=== PATIENT | female | born 1945 | race Caucasian/White ===

== ENCOUNTER 2019-12-28 11:00 | Inpatient (IN) | payer MEDICARE, SELFPAY ==
[2019-12-28] VITALS (18 sets, daily range): BP systolic 113–154; BP diastolic 65–111; PULSE 80–141; RESP 16–32; TEMP 36.1–36.7; O2SAT 88–100; BMI 27.9
--- NOTE | ~2019-12-28 | XR_ITS ---
EXAMINATION: XR chest 2V DATE: 12/28/2019 12:43 INDICATION: Shortness of breath. Cough. TECHNIQUE: Frontal and lateral views of the chest were obtained. COMPARISON: Chest 2 views 01/29/2019, chest CT 01/29/2019 FINDINGS: There is mild scarring at right lung apex. No pleural effusion or pneumothorax. Cardiomegal y is noted. There are changes of mitral valve replacement. There is a moderate-sized hiatal hernia. S urgical clips overlie right shoulder. IMPRESSION: 1. Cardiomegaly. 2. Moderate-sized hiatal hernia. Reviewed, dictated and finalized at location A.
--- NOTE | 2019-12-28 11:11 | ECG_ITS ---
Measurements Intervals [place] Rate: 134 P: KS: 0 QRS: -15 QRSD: 120 T: 100 QT: 286 QTc: 427 Interpretive Statements ATRIAL FIBRILLATION WITH RAPID VENTRICULAR RESPONSE INTRAVENTRICULAR CONDUCTION DELAY ANTEROSEPTAL INFARCT, AGE INDETERMINATE ST-T WAVE ABNORMALITY IN LATERAL LEADS- CONSIDER ISCHEMIA BASELINE ARTIFACT- I, II, AVR ABNORMAL ECG Electronically Signed On 12-28-2019 11:45:59 CDT by Clyde Rowell D.O.
--- NOTE | 2019-12-28 11:17 | ED.SOB ---
HPI - SOB/Dyspnea General Chief Complaint: Shortness of Breath/Dyspnea Stated Complaint: Chest tightness Time Seen by Provider: 12/28/19 11:15 Source: patient and RN notes reviewed Mode of arrival: EMS Limitations: no limitations History of Present Illness HPI Narrative: Pt is a 74 y/o female presenting to the ED c/o SOB with exertion. Pt reports she started experiencing SOB with exertion 1 month ago. Pt notes she has been seen by her PCP, Dr. Whitlock, and her Statistical Financial Analyst, Dr. Giles, for this complaint, and notes she has received an Echocardiogram and blood work but all has come back negative. Pt also reports chest tightness and mild cough, but denies fever, BLE swelling, N/V, or diarrhea. Pt states she has scheduled a visit to see a Pulmologist in January. Pt notes she has previously had a Maze procedure performed at [facility] in 2015 due to a Hx of A Fib, and states she has not felt herself go back into A Fib since until last night. Pt notes she is not on home oxygen and states she is not currently on a blood thinner. Pertinent past history: other (A Fib) Onset (ago): month(s) (1) Associated symptoms: chest pain (Tightness) and cough (Mild) Related Data Home Medications Medication Instructions Recorded Confirmed carvedilol 12.5 mg tablet 12.5 mg PO Q12H 10/24/19 12/28/19 cyclosporine 0.05 % eye drops 1 drop EACH EYE Q12H 10/24/19 12/28/19 furosemide 20 mg tablet 40 mg PO QAM 10/24/19 12/28/19 potassium chloride 20 mEq 20 meq PO DAILY 10/24/19 12/28/19 tablet,extended release Allergies Allergy/AdvReac Type Severity Reaction Status Date / Time amiodarone Allergy Severe Unknown Verified 12/28/19 14:56 [id number]-Ehm-Okv Reductase Allergy Severe Muscle Pain Verified 12/28/19 14:56 Inhibitor amoxicillin Allergy Mild Rash Verified 12/28/19 14:56 cephalexin Allergy Unknown Rash Verified 12/28/19 14:56 ciprofloxacin Allergy Unknown Unknown Verified 12/28/19 14:56 nitrofurantoin Allergy Unknown hand Verified 12/28/19 14:56 swelling Review of Systems Review of Systems: All systems reviewed & are unremarkable except as noted in HPI and below Constitutional: Constitutional: Denies fever(s) Cardiovascular: Cardiovascular: Reports chest pain (Tightness) and Denies pedal edema Respiratory: Respiratory: Reports cough (Mild) and Reports dyspnea Gastrointestinal: Gastrointestinal: Denies diarrhea, Denies nausea and Denies vomiting PMF Past Medical History Medical History A-fib Anemia Anxiety Arthritis Bronchitis CHF (congestive heart failure) COPD (chronic obstructive pulmonary disease) Depression Diabetes mellitus GERD (gastroesophageal reflux disease) HLD (hyperlipidemia) HTN (hypertension) Mitral valve regurgitation Myocardial infarction Pneumonia Seasonal allergies UTI (urinary tract infection) Surgical History Surgical History H/O cardiac catheterization H/O maze procedure H/O mitral valve repair H/O: hysterectomy Family History Family History Mother Family history of diabetes mellitus in first degree relative Family history of lung cancer Father Family history of coronary artery disease Hypertension Sibling Family history of diabetes mellitus in first degree relative Social History Social History Smoking packs per day: 1 Smoking cigarettes per day: 20.0 Years smoked: 25 Smoking pack-years: 25.00 Smoking status: Former smoker Tobacco type: cigarettes Second hand tobacco smoke exposure: No Smoking end date: 10/18/13 Alcohol intake: never Substance use: never Substance use type: does not use Gender identity (if verbalized by the patient): Female Spiritual care concerns: No Agree to blood products: Yes Exam Const: General: no acute distress and well developed Orientation/consciousness: o
[2019-12-28 11:30] LABS: Basophils Absolute Auto 0.1 K/mm3 (0.0-0.1); Basophils Percent Auto 0.7 % (0.2-1.2); Eosinophils Absolute Auto 0.6 K/mm3 (0-0.3); Eosinophils Percent Auto 5.5 % (0-4.4); Hematocrit 42.3 % (37.0-47.0); Hemoglobin 13.7 g/dL (12.0-15.0); Immature Granulocyte Absolute 0.04 K/mm3 (0.00-0.031); Immature Granulocyte Percent A 0.4 % (0-0.5); Lymphocytes Absolute Auto 2.09 K/mm3 (0.9-3.2); Mean Corpuscular HGB Conc 32.4 g/dl (32-36); Mean Corpuscular Hemoglobin 27.9 pg (26-34); Mean Corpuscular Volume 86.2 fl (80-100); Mean Platelet Volume 10.5 fl (7.4-10.4); Monocytes Absolute Auto 0.7 K/mm3 (0.1-0.6); Monocytes Percent Auto 6.7 % (2.6-8.5); Neutrophils Percent Auto 66.7 % (45.5-73.1); Platelet Count Result 332 k/mm3 (150-375); Red Blood Count 4.91 M/mm3 (4.2-5.4); Red Cell Distribution Width 13.7 % (11.5-14.5); White Blood Count 10.5 K/mm3 (4.5-10.0)
[2019-12-28 11:43] LABS: Blood Urea Nitrogen 19 mg/dL (7-17); Calcium 9.5 mg/dL (8.4-10.2); Carbon Dioxide 25 mmol/L (22-30); Chloride 105 mmol/L (98-107); Estimated Glomerular Filt Rate 31; Glucose 164 mg/dL (65-105); Potassium 3.9 mmol/L (3.4-5.0); Sodium 139 mmol/L (137-145)
[2019-12-28 12:00] LABS: INR 0.9; Prothrombin Time 11.3 Seconds (11.1-14.7)
[2019-12-28 12:01] LABS: Partial Thromboplastin Time 25.9 SECONDS (22.3-36.8)
[2019-12-28 12:10] LABS: NT Pro B Type Natriuretic Pept 1390 PG/ML (5-100); Troponin I < 0.012 ng/mL (0.000-0.034)
[2019-12-28 15:34] LABS: Troponin I 0.013 ng/mL (0.000-0.034)
--- NOTE | 2019-12-28 16:38 | PM.IMHP ---
H&P: HPI History of Present Illness Chief complaint: a fib with rvr Narrative: Jennifer Schofield is a 74 year old female who has a history of paroxysmal atrial fibrillation. The patient has a history of having a may space seizure as well as mitral valve ring annuloplasty in 2016. The patient has been out of atrial fibrillation since then. The patient was admitted here January of 2019 for shortness of breath and the patient stated that it was never figured out why she was short of breath. She does not wear oxygen at home. The patient has been short of breath with exertion over the last month. The patient said that she went to her primary care doctor and was sent to her gold leaf roller Dr. Giles for this complaint. She received an echo blood work which came back negative according to the patient. She did have a mild cough but no fever. No nausea vomiting or diarrhea. Patient is scheduled to see a flash designer in January. The patient stated she did not feel herself going back in atrial fibrillation until last night. Patient stated since she has been on oxygen she feels much better. She is also complaining of some mild chest tightness. Patient was given Cardizem IV push and then started on drip. Patient since then has converted back to sinus rhythm. Date of service 12/28/2019 Review of Systems Review of Systems: All systems reviewed & are unremarkable except as noted in HPI and below Constitutional: Constitutional: Reports as per HPI and Reports no additional constitutional complaints Eyes: Eyes: Reports as per HPI and Reports no additional eye complaints ENT: Reports system reviewed and no additional complaints, except as documented and Reports Normal hearing present Cardiovascular: Cardiovascular: Reports no additional cardiovascular complaints Respiratory: Respiratory: Reports no additional respiratory complaints and Reports no additional respiratory complaints Gastrointestinal: Gastrointestinal: Reports as per HPI and Reports no additional gastrointestinal complaints Musculoskeletal: Musculoskeletal: Reports no additional musculoskeletal complaints Integumentary/Breasts: Skin/Breast: Reports system reviewed and no additional complaints, except as docu and Reports as per HPI Neurologic: Reports system reviewed and no additional complaints, except as documented, Reports as per HPI and Reports Normal hearing present Psychiatric: Psychiatric: Reports no additional psychiatric complaints and Reports as per HPI Endocrine: Endocrine: Reports no additional endocrine complaints Hematologic/Lymphatic: Hematologic/Lymphatic: Reports no additional hematologic/lymphatic complaints Allergic/Immunologic: Allergic/Immunologic: Reports no additional allergic/immunologic complaints [facility] Past Medical History Medical History (Updated 12/28/19 @ 16:48 by Arina Lopez NP) A-fib Paroxysmal Anemia Anxiety Arthritis Bronchitis CHF (congestive heart failure) Chronic kidney disease, stage III (moderate) COPD (chronic obstructive pulmonary disease) Depression Diabetes mellitus GERD (gastroesophageal reflux disease) HLD (hyperlipidemia) HTN (hypertension) Hypertensive heart disease with heart failure Mitral valve regurgitation Mixed hyperlipidemia Myocardial infarction Pneumonia Seasonal allergies Type 2 diabetes mellitus without complications UTI (urinary tract infection) Surgical History Surgical History (Updated 12/28/19 @ 16:48 by Arina Lopez NP) H/O cardiac catheterization H/O maze procedure H/O mitral valve repair With a ring H/O: hysterectomy Family History Family History Mother Family history of diabetes mellitus in first degree relative Family history of lung cancer Father Family history of coronary artery disease Hypertension Sibling Family history of diabetes mellitus in first degree relative Social History Social History (Updated 12/27
[2019-12-28 18:06] LABS: Troponin I 0.014 ng/mL (0.000-0.034)
--- NOTE | 2019-12-28 18:49 | WPDCN ---
Assessment and Plan Assessment and plan (1) A-fib: Code(s): I48.91 - Unspecified atrial fibrillation Status: Chronic Assessment and Plan: Unfortunately the patient has developed recurrent atrial fibrillation RVR since her Maze procedure in 2016. Heart rate is better and actually converted for short while to sinus rhythm earlier today on a Cardizem drip Will change Cardizem drip to: Cardizem 60 mg p.o. q.8 hours Continue carvedilol 12.5 mg b.i.d. Discussed anticoagulation to reduce cardioembolic risk. Patient would like to proceed. Because she has chronic kidney disease Eliquis would be a better choice than Xarelto this time. Will see how patient does with rate control. 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 (2) Chronic diastolic CHF (congestive heart failure): Code(s): I50.32 - Chronic diastolic (congestive) heart failure Status: Acute Assessment and Plan: Patient has chronic diastolic heart failure and a mildly elevated proBNP but does not appear to be volume overloaded at this point. (3) PERERA (dyspnea on exertion): Code(s): R06.09 - Other forms of dyspnea Status: Acute Assessment and Plan: Patient's main complaint recently has been PERERA walking from room to room. PFTs a couple years ago showed mild to moderate lung disease. Can't discount possible PAF as a contributing factor but likely this is mostly due to lung disease with some diastolic CHF as well. Has an appointment to see a product advisor in January Former smoker (4) HTN (hypertension): Code(s): I10 - Essential (primary) hypertension Status: Chronic Assessment and Plan: BP mildly elevated (5) CAD (coronary artery disease): Code(s): I25.10 - Atherosclerotic heart disease of [place]cho[place] coronary artery without angina pectoris Status: Acute Assessment and Plan: Chronic total occlusion of the RCA, no angina (6) Chronic kidney disease, stage III (moderate): Code(s): N18.3 - Chronic kidney disease, stage 3 (moderate) Status: Chronic Assessment and Plan: Stage III CKD (7) HLD (hyperlipidemia): Code(s): E78.5 - Hyperlipidemia, unspecified Status: Chronic Assessment and Plan: Has CAD but unfortunately developed statin myopathy so is not on a statin (8) History of ventricular tachycardia: Code(s): Z86.79 - Personal history of other diseases of the circulatory system Status: Acute Assessment and Plan: Had polymorphic V-tach requiring emergent cardioversion a couple years ago while on amiodarone, in the setting of hypokalemia. HPI Data of Consult Date/Time: 12/28/19 18:49 Requesting Physician: Swati Oliva MD Primary Care Provider: Quinten Whitlock MD Consult Narrative Narrative: Date of service: 12/28/2019 Jennifer Schofield is a 74 year old female who was asked to see at the request of Dr. Oliva for my advice and opinion regarding her atrial fibrillation and consultation. She is followed by Dr. Giles for her CAD, PAF, and history of mitral valve repair. Last night her heart was jumping all over the place and she had increased shortness of breath. The patient presented to the emergency room yesterday with AFib RVR, pulse 141. She was started on a Cardizem drip and given Lovenox. She has converted to sinus rhythm for a few hours this afternoon but then went back in atrial fibrillation, heart rate 90-110 ppm. Patient thinks this is the 2nd episode of atrial fibrillation since her Maze procedure (had evening of palpitations a year ago which resolved spontaneousl
--- NOTE | 2019-12-28 18:49 | ADMIMU ---
This patient, Jennifer Schofield, was admitted to IMU status, and placed in IMU Room 212-01. Patient/family oriented to hospital policies and general routines including ID bracelet, bed and alarms, visiting hours, pain management, procedures, bathroom and other care routines, personal items, smoking policy, room service/diet, and visiting hours. Valuables list has been completed. Information on how to activate the Rapid Response Team has been discussed. Patient/Family are encouraged to report perceived risks to care and to ask questions if they do not understand what they are told or what they should do. Arrival time 1400
[2019-12-28] MEDS: ENOXAPARIN 80 MG/0.8 ML SYRINGE 78 MG SUB-Q (19:04)
[2019-12-28 19:12] LABS: Glucose Point of Care 158 (65-105)
[2019-12-28] MEDS: carvediloL 12.5 MG TABLET PO (20:06)
[2019-12-28] MEDS: DILTIAZEM HCL 60 MG TABLET PO ×2 (20:49→23:50)
[2019-12-29] VITALS (19 sets, daily range): BP systolic 127–151; BP diastolic 57–73; PULSE 65–95; RESP 16–22; TEMP 35.9–37.2; O2SAT 95–97; BMI 28.4
[2019-12-29 00:36] LABS: Glucose Point of Care 152 (65-105)
[2019-12-29] MEDS: SALINE 0.65% NAS SOLN 44 ML BTL 1 SPRAY NASAL (04:31)
[2019-12-29 05:12] LABS: Basophils Absolute Auto 0.1 K/mm3 (0.0-0.1); Basophils Percent Auto 0.6 % (0.2-1.2); Eosinophils Absolute Auto 0.5 K/mm3 (0-0.3); Eosinophils Percent Auto 5.7 % (0-4.4); Hematocrit 37.4 % (37.0-47.0); Hemoglobin 11.7 g/dL (12.0-15.0); Immature Granulocyte Absolute 0.02 K/mm3 (0.00-0.031); Immature Granulocyte Percent A 0.2 % (0-0.5); Lymphocytes Absolute Auto 2.72 K/mm3 (0.9-3.2); Lymphocytes Percent Auto 32.7 % (18.3-44.2); Mean Corpuscular HGB Conc 31.3 g/dl (32-36); Mean Corpuscular Hemoglobin 27.5 pg (26-34); Mean Corpuscular Volume 87.8 fl (80-100); Mean Platelet Volume 11.2 fl (7.4-10.4); Monocytes Absolute Auto 0.7 K/mm3 (0.1-0.6); Monocytes Percent Auto 8.4 % (2.6-8.5); Neutrophils Absolute Auto 4.4 K/mm3 (1.3-6.7); Neutrophils Percent Auto 52.4 % (45.5-73.1); Platelet Count Result 293 k/mm3 (150-375); Red Blood Count 4.26 M/mm3 (4.2-5.4); Red Cell Distribution Width 13.8 % (11.5-14.5); White Blood Count 8.3 K/mm3 (4.5-10.0)
[2019-12-29 05:33] LABS: Alanine Aminotransferase 12 U/L (4-35); Albumin Level 3.8 g/dL (3.5-5.1); Alkaline Phosphatase 65 U/L (38-126); Aspartate Amino Transferase 17 U/L (14-36); Bilirubin,Total 0.5 mg/dL (0.2-1.3); Blood Urea Nitrogen 22 mg/dL (7-17); Calcium 8.7 mg/dL (8.4-10.2); Carbon Dioxide 26 mmol/L (22-30); Chloride 102 mmol/L (98-107); Estimated CRCL calculation 26 ml/min; Estimated Glomerular Filt Rate 27; Glucose 124 mg/dL (65-105); Potassium 3.4 mmol/L (3.4-5.0); Sodium 137 mmol/L (137-145)
[2019-12-29] MEDS: DILTIAZEM HCL 60 MG TABLET PO (05:40)
[2019-12-29] MEDS: AMLODIPINE BESYLATE 5 MG TABLET 10 MG PO (09:30)
[2019-12-29] MEDS: POTASSIUM CHLORIDE 20 MEQ TABLET 40 MEQ PO (09:31)
[2019-12-29] MEDS: FUROSEMIDE 40 MG TABLET PO (09:33)
[2019-12-29] MEDS: PANTOPRAZOLE 40 MG TABLET PO (09:33)
[2019-12-29] MEDS: carvediloL 12.5 MG TABLET PO ×2 (09:33→20:53)
[2019-12-29] MEDS: APIXABAN 5 MG TABLET PO ×2 (09:33→20:53)
--- NOTE | 2019-12-29 11:11 | PCNSR ---
On 12/29/19, the student, Albina Serrato, provided care and completed [facility] documentation on this patient. I have reviewed the student's documentation and agree with the findings.
--- NOTE | 2019-12-29 11:34 | PM.PNCARD ---
Progress Note: A&P Additional Plan 74-year-old lady with symptomatic recurrent AFib RVR following mitral valve repair and Maze procedure in the past As the patient has clinically responded to the diltiazem I am going to shift her to long-acting diltiazem at the [place] and dosage at this time For now apixaban will be continued although the patient did have difficulty in the past with problematic abdominal bleeding in the nora renal area when anticoagulated. Will anticipate consider discharge tomorrow if rhythm is stable on long-acting diltiazem. Subjective Date/time seen: Date of service: 12/29/19 11:34 Interval history: Follow-up visit for 74-year-old lady with history of valvular heart disease and symptomatic paroxysmal atrial fibrillation. Patient previously had undergone a Maze procedure at the time of her surgery but was admitted with symptomatic AF RVR. Currently in sinus rhythm with diltiazem being added to her regimen. Patient really anticoagulated with apixaban. When previously anticoagulate the patient had a spontaneous perirenal hematoma. Exam Const: General: comfortable and no acute distress HENMT: Mouth: Yes moist mucous membranes Eyes: Sclera: sclerae normal Pupils: Equal, round and reactive pupils present Neck: Neck: supple and no JVD Thyroid: thyroid normal Resp: Effort & Inspection: normal respiratory effort Auscultation: clear to auscultation bilaterally Cardio: Rate: regular rate Rhythm: regular rhythm GI: Auscultation: normal bowel sounds Skin: General skin exam: normal color Neuro: Cognition (Neuro): normal cognition Extrem: General: normal to inspection Objective Data Vital Signs Vital Signs: Vital Signs - 24 hr 12/28/19 11:46 12/28/19 12:22 12/28/19 12:31 Temperature Pulse Rate 123 H 100 97 Respiratory Rate 28 H 18 17 Blood Pressure 132/93 H 114/79 120/95 H Pulse Oximetry 99 96 97 12/28/19 12:52 12/28/19 13:01 12/28/19 13:39 Temperature Pulse Rate 100 93 95 Respiratory Rate 23 H 18 16 Blood Pressure 122/78 113/90 141/79 H Pulse Oximetry 95 96 96 12/28/19 16:00 12/28/19 16:51 12/28/19 18:00 Temperature 36.1 C L 36.2 C L Pulse Rate 82 90 88 Respiratory Rate 22 H 22 H Blood Pressure 154/82 H 154/82 H Pulse Oximetry 98 98 12/28/19 19:41 12/28/19 20:00 12/28/19 20:06 Temperature 36.3 C L Pulse Rate 91 93 93 Respiratory Rate 18 18 Blood Pressure 132/77 Pulse Oximetry 98 98 12/28/19 20:54 12/28/19 22:00 12/28/19 23:39 Temperature 36.1 C L Pulse Rate 92 80 Respiratory Rate 16 Blood Pressure 141/65 H Pulse Oximetry 95 97 12/29/19 00:00 12/29/19 02:00 12/29/19 03:43 Temperature 36.1 C L Pulse Rate 76 65 80 Respiratory Rate 16 18 Blood Pressure 139/66 Pulse Oximetry 97 97 12/29/19 03:49 12/29/19 04:00 12/29/19 06:00 Temperature Pulse Rate 80 71 66 Respiratory Rate 18 Blood Pressure Pulse Oximetry 97 12/29/19 08:00 12/29/19 09:33 12/29/19 10:00 Temperature 35.9 C L Pulse Rate 84 83 74 Respiratory Rate 22 H Blood Pressure 151/72 H Pulse Oximetry 95 Intake/Output Intake/Output: Intake & Output 12/26/19 12/27/19 12/28/19 12/29/19 23:59 23:59 23:59 23:59 Intake Total 500 300 Output Total 250 400 Balance 250 -100 Meds/Results Medications: Active Medications Generic Name Dose Route Start Last Admin Trade Name Freq PRN Reason Stop Dose Admin Amlodipine Besylate 10 mg 12/29/19 09:00 12/29/19 09:30 Norvasc PO 10 mg DAILY SUKUMAR Administration Apixaban 5 mg 12/29/19 09:00 12/29/19 09:33 Eliquis PO 5 mg Q12HR SUKUMAR Administration Carvedilol 12.5 mg 12/28/19 21:00 12/29/19 09:33 Coreg PO 12.5 mg Q12HR SUKUMAR Administration Cyclosporine 1 drop 12/28/19 21:00 12/29/19 09:34 Restasis EACH EYE 1 drop Q12HR SUKUMAR Administration Dextrose 12.5 gm 12/28/19 16:51 Dextrose 50% Syringe IV PUSH PRN PRN Hypoglycemia Protoco
[2019-12-29] MEDS: POTASSIUM CHLORIDE 20 MEQ TABLET.ER PO (12:53)
[2019-12-29 13:34] LABS: Glucose Point of Care 113 (65-105)
[2019-12-29 13:34] LABS: Glucose Point of Care 161 (65-105)
--- NOTE | 2019-12-29 16:22 | PM.IMPN ---
Progress Note: A&P Assessment and Plan (1) A-fib: Code(s): I48.91 - Unspecified atrial fibrillation Status: Chronic Assessment and Plan: The patient has since converted back to sinus rhythm. She has been on a Cardizem drip and transitioned to p.o. Cardizem. Cardiology added Eliquis with her renal insufficiency.guy score 4 . (2) Chronic systolic CHF (congestive heart failure): Code(s): I50.22 - Chronic systolic (congestive) heart failure Status: Chronic Assessment and Plan: She has mixed diastolic congestive heart failure patient had an echo recently. Continue with her Lasix. And her Coreg. (3) Type 2 diabetes mellitus without complications: Code(s): E11.9 - Type 2 diabetes mellitus without complications Status: Chronic Assessment and Plan: Accu-Cheks AC and HS 7 hold her metformin for now. Plus the patient has chronic renal failure stage 3. (4) HTN (hypertension): Code(s): I10 - Essential (primary) hypertension Status: Chronic Assessment and Plan: Continue with Coreg and Norvasc. She is on Lasix as well. (5) Chronic kidney disease, stage III (moderate): Code(s): N18.3 - Chronic kidney disease, stage 3 (moderate) Status: Chronic Assessment and Plan: She is at her baseline continue to monitor BMPs. Subjective Date/time seen: 12/29/19 16:22 Interval history: Date of visit 11/30. 74-year-old lady with history of valvular heart disease and symptomatic paroxysmal atrial fibrillation. Patient previously had undergone a Maze procedure at the time of her surgery but was admitted with shortness of breath thought precipitated by AF RVR. Currently in sinus rhythm with diltiazem being added to her regimen. Patient anticoagulated with apixaban. When previously anticoagulated, the patient had a spontaneous perirenal hematoma. Exam Narrative: Exam Narrative: Blood pressure 150/72 pulse is 74 and regular saturating 98% on 2 L nasal canula Lungs clear CV regular rate no murmurs Abdomen is soft nontender Extremities without edema good distal pulses Alert no focal deficits Objective Data Vital Signs Vital Signs: Vital Signs - 24 hr 12/28/19 16:51 12/28/19 18:00 12/28/19 19:41 Temperature 36.2 C L 36.3 C L Pulse Rate 90 88 91 Respiratory Rate 22 H 18 Blood Pressure 154/82 H 132/77 Pulse Oximetry 98 98 12/28/19 20:00 12/28/19 20:06 12/28/19 20:54 Temperature Pulse Rate 93 93 Respiratory Rate 18 Blood Pressure Pulse Oximetry 98 95 12/28/19 22:00 12/28/19 23:39 12/29/19 00:00 Temperature 36.1 C L Pulse Rate 92 80 76 Respiratory Rate 16 16 Blood Pressure 141/65 H Pulse Oximetry 97 97 12/29/19 02:00 12/29/19 03:43 12/29/19 03:49 Temperature 36.1 C L Pulse Rate 65 80 80 Respiratory Rate 18 18 Blood Pressure 139/66 Pulse Oximetry 97 97 12/29/19 04:00 12/29/19 06:00 12/29/19 08:00 Temperature 35.9 C L Pulse Rate 71 66 84 Respiratory Rate 22 H Blood Pressure 151/72 H Pulse Oximetry 95 12/29/19 09:33 12/29/19 10:00 12/29/19 11:44 Temperature 36.0 C L Pulse Rate 83 74 75 Respiratory Rate 18 Blood Pressure 143/73 H Pulse Oximetry 96 12/29/19 12:00 12/29/19 14:00 Temperature 35.9 C L Pulse Rate 74 83 Respiratory Rate 22 H Blood Pressure 151/72 H Pulse Oximetry 95 Intake/Output Intake/Output: Intake & Output 12/26/19 12/27/19 12/28/19 12/29/19 23:59 23:59 23:59 23:59 Intake Total 500 620 Output Total 250 400 Balance 250 220 Meds/Results Medications: Active Medications Generic Name Dose Route Start Last Admin Trade Name Jessica PRN Reason Stop Dose Admin Amlodipine Besylate 10 mg 12/29/19 09:00 12/29/19 09:30 Norvasc PO 10 mg DAILY SUKUMAR Administration Apixaban 5 mg 12/29/19 09:00 12/29/19 09:33 Eliquis PO 5 mg Q12HR SUKUMRA Administration Carvedilol 12.5 mg 12/28/19 21:00 12/29/19 09:33 Coreg PO 12
[2019-12-29 20:30] LABS: Glucose Point of Care 195 (65-105)
[2019-12-30] VITALS (13 sets, daily range): BP systolic 131–142; BP diastolic 73–75; PULSE 65–84; RESP 12–24; TEMP 36.2–36.3; O2SAT 90–96
[2019-12-30 05:15] LABS: Blood Urea Nitrogen 23 mg/dL (7-17); Calcium 8.9 mg/dL (8.4-10.2); Carbon Dioxide 28 mmol/L (22-30); Chloride 103 mmol/L (98-107); Estimated CRCL calculation 26 ml/min; Estimated Glomerular Filt Rate 27; Glucose 155 mg/dL (65-105); Sodium 136 mmol/L (137-145)
--- NOTE | 2019-12-30 09:39 | PM.PNCARD ---
Progress Note: A&P Assessment and Plan (1) A-fib: Code(s): I48.91 - Unspecified atrial fibrillation Status: Chronic Assessment and Plan: REmains in NSR on higher dose of carvedilol and initiation of CArdizem. Eliquis started. DC amlodipine new line okay for discharge. Patient has follow-up appointments for an EKG on January 14 and office visit with Dr. Giles on February 14 (2) History of mitral valve repair: Code(s): Z98.890 - Other specified postprocedural states Status: Acute Assessment and Plan: Intact repair (3) CAD (coronary artery disease): Code(s): I25.10 - Atherosclerotic heart disease of [place] coronary artery without angina pectoris Status: Acute Assessment and Plan: CABG x1, stable (4) PERERA (dyspnea on exertion): Code(s): R06.09 - Other forms of dyspnea Status: Acute Assessment and Plan: Chronic PERERA, lungs clear on chest x-ray, doubt CHF. Wonder she has some COPD or interstitial lung disease? Has an appointment to see a insole department worker in [place] in January. Will get a O2 sat walking study prior to discharge. Subjective Date/time seen: 12/30/19 09:39 Interval history: Follow-up for recurrent atrial fibrillation, mitral valve repair, CABG Date of service: 12/30/2019 Patient is feeling well. Some nasal congestion. Chronic PERERA. Telemetry shows the patient has maintained sinus rhythm. Did have a ventricular triplet. Review of Systems Constitutional: Constitutional: Reports fatigue ENT: Reports nasal congestion Cardiovascular: Cardiovascular: Denies chest pain and Denies leg edema Respiratory: Respiratory: Denies chest congestion and Reports dyspnea on exertion Gastrointestinal: Gastrointestinal: Denies abdominal pain Genitourinary: Genitourinary: Denies hematuria Musculoskeletal: Musculoskeletal: Reports no additional musculoskeletal complaints Psychiatric: Psychiatric: Denies behavioral changes Exam Const: General: comfortable and no acute distress HENMT: Mouth: Yes moist mucous membranes Eyes: EOM: EOMs intact bilaterally Neck: Neck: supple Resp: Auscultation: rales (fine rales 1/2 up bilat) Cardio: Rate: regular rate Rhythm: regular rhythm Skin: Rashes: no rashes noted Neuro: Speech: normal speech Extrem: Right lower extremity: no edema Left lower extremity: no edema Psych: Affect: normal affect Objective Data Vital Signs Vital Signs: Vital Signs - 24 hr 12/29/19 10:00 12/29/19 11:44 12/29/19 12:00 Temperature 96.8 F L 96.6 F L Pulse Rate 74 75 74 Respiratory Rate 18 22 H Blood Pressure 143/73 H 151/72 H Pulse Oximetry 96 95 12/29/19 14:00 12/29/19 16:00 12/29/19 18:00 Temperature 97.8 F Pulse Rate 83 78 77 Respiratory Rate 20 Blood Pressure 127/57 L Pulse Oximetry 95 12/29/19 19:51 12/29/19 20:00 12/29/19 20:53 Temperature 97.3 F L Pulse Rate 76 78 79 Respiratory Rate 18 18 Blood Pressure 143/69 H Pulse Oximetry 96 96 12/29/19 21:45 12/29/19 23:53 12/30/19 00:00 Temperature 98.9 F Pulse Rate 74 72 73 Respiratory Rate 18 18 Blood Pressure 130/69 Pulse Oximetry 95 95 12/30/19 02:00 12/30/19 03:42 12/30/19 03:49 Temperature 97.3 F L Pulse Rate 76 76 76 Respiratory Rate 24 H 24 H Blood Pressure 142/73 H Pulse Oximetry 96 96 12/30/19 04:00 12/30/19 05:28 12/30/19 08:00 Temperature 97.1 F L Pulse Rate 71 72 75 Respiratory Rate 12 Blood Pressure 131/75 Pulse Oximetry 96 Intake/Output Intake/Output: Intake & Output 12/27/19 12/28/19 12/29/19 12/30/19 23:59 23:59 23:59 23:59 Intake Total 484 327 2743 Output Total 209 566 0387 Balance 250 176 650 Meds/Results Medications: Active Medications Generic Name Dose Route Start Last Admin Trade Name Freq PRN Reason Stop Dose Admin Amlodipine Besylate 10 mg 12/29/19 09:00 12/29/19 09:30 Norvasc PO 10 mg DAILY SUKUMAR Administration Apix
[2019-12-30] MEDS: APIXABAN 5 MG TABLET PO (09:53)
[2019-12-30] MEDS: carvediloL 25 MG TABLET PO (09:53)
[2019-12-30] MEDS: PANTOPRAZOLE 40 MG TABLET PO (09:57)
[2019-12-30] MEDS: POTASSIUM CHLORIDE 20 MEQ TABLET.ER PO (09:58)
[2019-12-30] MEDS: FUROSEMIDE 40 MG TABLET PO (09:58)
[2019-12-30 10:21] LABS: Glucose Point of Care 137 (65-105)
--- NOTE | 2019-12-30 13:44 | HOMEO2EVAL ---
Home Oxygen Evaluation RC: Home Oxygen (O2) Evaluation Start: 12/30/19 08:14 Freq: ONCE Status: Active Protocol: RPE Activity Type Activity Date Activity User E-Sign Co-Sign Detail Recorded Client Recorded Date Recorded By Document 12/30/19 13:06 LMJ [email or web address] 12/30/19 13:44 LMJ Document 12/30/19 13:08 LMJ [email or web address] 12/30/19 13:44 LMJ Document 12/30/19 13:10 LMJ [email or web address] 12/30/19 13:44 J Document 12/30/19 13:20 LMJ [email or web address] 12/30/19 13:44 LMJ 12/30/19 12/30/19 12/30/19 13:06 13:08 13:10 Home O2 Evaluation Test Phase Resting Exercise Exercise Oxygen Delivery Room Air Room Air Room Air Pulse Oximetry (90-100 %) 90 92 93 Pulse Rate (60-100 beats/min) 68 68 70 Activity Tolerance Good Good Treatment Charges O2 Evaluation 12/30/19 13:20 Home O2 Evaluation Test Phase Resting Oxygen Delivery Room Air Pulse Oximetry (90-100 %) 94 Pulse Rate (60-100 beats/min) 65 Activity Tolerance Treatment Charges
--- NOTE | 2019-12-30 13:44 | PCRCNOTE ---
Home o2 evaluation done, pt. does not require supplemental o2 at home.
--- NOTE | 2019-12-30 16:16 | PM.DS ---
DS: Diagnosis Admitting Diagnosis Admitting Diagnosis: Unspecified atrial fibrillation Discharge Diagnosis (1) A-fib: Code(s): I48.91 - Unspecified atrial fibrillation Status: Chronic Assessment and Plan: The patient converted back to sinus rhythm on a Cardizem drip and transitioned to p.o. Cardizem 240 . Cardiology added Eliquis with her renal insufficiency.guy score 4 . (2) Chronic systolic CHF (congestive heart failure): Code(s): I50.22 - Chronic systolic (congestive) heart failure Status: Chronic Assessment and Plan: She has mixed diastolic congestive heart failure patient had an echo recently. Continue with her Lasix. And her Coreg increased to 25 bid. (3) Type 2 diabetes mellitus without complications: Code(s): E11.9 - Type 2 diabetes mellitus without complications Status: Chronic Assessment and Plan: Accu-Cheks AC and HS 7 held her metformin with her creatinine up to 1.8. (4) HTN (hypertension): Code(s): I10 - Essential (primary) hypertension Status: Chronic Assessment and Plan: Continue with Coreg and substituted diltiazem for amlodipine She is on Lasix as well. (5) Chronic kidney disease, stage III (moderate): Code(s): N18.3 - Chronic kidney disease, stage 3 (moderate) Status: Chronic Assessment and Plan: She is at her baseline steady at 1.8 DS: Summary Hospital Course Hospital Course: 74-year-old white female with history of mitral valve repair and Maze procedure for atrial fibrillation presented with atrial fib and rapid ventricular response. Rate controlled with IV diltiazem and converted to sinus rhythm. Placed on p.o. diltiazem in place of amlodipine and Coreg increased to 25 b.i.d.. Eliquis 5 b.i.d. added for anticoagulation. [facility] and follow-up with Dr. Giles 02/[address] Perdue 1 week for further DM management Time Spent with Patient Time attestation: Total time spent providing and/or coordinating discharge services: 35 minutes Exam Narrative: Exam Narrative: Condition on discharge Blood pressure 130/75 pulse 68 regular Lungs clear CV regular rate rhythm Abdomen soft nontender Extremities without edema good distal pulses DS: Data Data Completed and Pending Labs on day of discharge: Labs from last 24 hours 12/30/19 12/30/19 12/29/19 08:49 04:34 20:20 Sodium 136 L Potassium 4.0 Chloride 103 Carbon Dioxide 28 BUN 23 H Creatinine 1.80 H Estim Creat Clear Calc 26 Estimated GFR 27 L Glucose 155 H POC Capillary Glucose 137 H 195 H Calcium 8.9 Discharge Plan Discharge Attending physician on discharge: Michael Vazquez Consulting providers: Giuseppe Montoya Discharging Clinician: Michael Vazquez Patient Disposition: Home, Self-Care Activity: as tolerated Diet: heart healthy and diabetic Discharge Instructions: CARDIOLOGY DISCHARGE INSTRUCTIONS: ACTIVITY: Activity as tolerated with precautions to avoid falls. Rise slowly from a seated or lying position. FOLLOW-UP: Follow up with [facility] [address] to check EKG on January 05, 2020 at 11:00 a.m.. Please arrive by 10:45 a.m. for your appointment. Bring photo ID and insurance card. as previously scheduled with Dr. Giles on February 15, 2020 at 3:30 p.m.. Please arrive by 3:15 p.m. for your appointment. Bring photo ID, insurance card(s) and current medication list Patient Instructions: Antibiotic Form, A-fib (Atrial Fibrillation) (GEN) Stand Alone Forms: General Discharge Information Follow-up/Referrals: Quinten Whitlock MD [Primary Care Provider] - 1 Week (follow up blood sugar. stopped metformin with increased creatinine) Devin Giles MD [Physician] - 02/15/20 Discharge Medications: New Eliquis 5 mg Tablet
== END 2019-12-30 15:39 | disposition home or self-care (01) | DRG 309 ==
LOC: ANHED 13:17 → ANHIMU 13:47
PROVIDERS: Nurse Practitioner; Admitting Provider Family Medicine; Emergency Provider Emergency Medicine; PCP Family Medicine; Visit Provider Internal Medicine
DX: I48.91 Unspecified atrial fibrillation (principal); I13.0 Hypertensive heart and chronic kidney disease with heart failure and stage 1 through stage 4 chronic kidney disease, or unspecified chronic kidney disease; I50.22 Chronic systolic (congestive) heart failure; D64.9 Anemia, unspecified; J44.9 Chronic obstructive pulmonary disease, unspecified; E78.5 Hyperlipidemia, unspecified; K21.9 Gastro-esophageal reflux disease without esophagitis; F41.8 Other specified anxiety disorders; N18.3 Chronic kidney disease, stage 3 (moderate); Z86.79 Personal history of other diseases of the circulatory system; I25.10 Atherosclerotic heart disease of native coronary artery without angina pectoris; E11.9 Type 2 diabetes mellitus without complications
CPT/HCPCS: 36415; 71046; 80048; 80053; 83735; 83880; 84484; 85025; 85610; 85730; 87804; 93005; 94618; 96374; 99285; A9270; J1650

== ENCOUNTER 2020-07-11 10:52 | Emergency (ER) | payer MEDICARE, SELFPAY ==
[2020-07-11 11:01] VITALS: BP 154/73; PULSE 73; RESP 24; TEMP 36.4; O2SAT 99
--- NOTE | 2020-07-11 11:29 | ED.GENADULT ---
HPI - General Adult General Chief complaint: Urogenital-Female Stated complaint: UTI SYMPTOMS Time Seen by Provider: 07/11/20 11:29 Source: patient Mode of arrival: ambulatory Limitations: no limitations History of Present Illness HPI narrative: 34-year-old female patient presents to the [facility] with complaints of urinary symptoms that started yesterday. Patient states she has had a lot of lower abdominal pain and pressure along with increase in urination. Patient states she gets UTIs often and states that these symptoms are very similar to her UTIs before in the past. Denies any new low back pain, fevers, nausea, vomiting or diarrhea. Patient states she has been taking Tylenol for the pain. Related Data Home Medications Medication Instructions Recorded Confirmed cyclosporine 0.05 % eye drops 1 drop EACH EYE Q12H 10/24/19 07/11/20 furosemide 20 mg tablet 40 mg PO QAM 10/24/19 07/11/20 potassium chloride 20 mEq 20 meq PO DAILY 10/24/19 07/11/20 tablet,extended release rivaroxaban [Xarelto] 15 mg PO DAILY 07/11/20 07/11/20 umeclidinium-vilanterol [Anoro 1 ea INHALATION DAILY 07/11/20 07/11/20 Ellipta] Allergies Allergy/AdvReac Type Severity Reaction Status Date / Time amiodarone Allergy Severe Unknown Verified 07/11/20 11:02 Mkeaxty-Mqr-Mfv Reductase Allergy Severe Muscle Pain Verified 07/11/20 11:02 Inhibitor amoxicillin Allergy Mild Rash Verified 07/11/20 11:02 cephalexin Allergy Unknown Rash Verified 07/11/20 11:02 ciprofloxacin Allergy Unknown Unknown Verified 07/11/20 11:02 nitrofurantoin Allergy Unknown hand Verified 07/11/20 11:02 swelling Review of Systems Review of Systems: Narrative: CONSTITUTIONAL: Denies fever, chills, or sweats. EYES: Denies visual changes, redness, or discharge. ENT: Denies rhinorrhea, congestion, sore throat, or otalgia. CARDIOVASCULAR: Denies chest pain, palpitations, or edema. RESPIRATORY: Denies cough or dyspnea. GASTROINTESTINAL: Positive lower abdominal pressure, denies nausea, vomiting, or diarrhea. GENITOURINARY: Denies dysuria or hematuria. Positive urinary frequency SKIN: Denies rash or itching. MUSCULOSKELETAL: Denies back pain, joint pain, or myalgia. NEUROLOGIC: Denies headache, numbness, or weakness. PSYCHIATRIC: Denies anxiety or depression. 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isease) History of ventricular tachycardia HLD (hyperlipidemia) HTN (hypertension) Hypertensive heart disease with heart failure Mitral valve regurgitation Mixed hyperlipidemia Myocardial infarction Pneumonia Seasonal allergies Statin myopathy Type 2 diabetes mellitus without complications UTI (urinary tract infection) Surgical History Surgical History H/O cardiac catheterization H/O maze procedure H/O mitral valve repair With a ring H/O: hysterectomy History of mitral valve repair Family History Family History Mother Family history of diabetes mellitus in first degree relative Family history of lung cancer Father Family history of coronary artery disease Hypertension Sibling Family history of diabetes mellitus in first degree relative Social History Social History Social History: She has with her for over 50 years. 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 She desires to be full code. She smoked to half pack a cigarettes per day for 40 ye
== END 2020-07-11 11:40 | disposition home or self-care (01) ==
PROVIDERS: Emergency Provider Nurse Practitioner Family; PCP Family Medicine
DX: R30.0 Dysuria (principal); R35.0 Frequency of micturition; Z87.891 Personal history of nicotine dependence; I48.91 Unspecified atrial fibrillation; M19.90 Unspecified osteoarthritis, unspecified site; I25.10 Atherosclerotic heart disease of native coronary artery without angina pectoris; I13.0 Hypertensive heart and chronic kidney disease with heart failure and stage 1 through stage 4 chronic kidney disease, or unspecified chronic kidney disease; E11.22 Type 2 diabetes mellitus with diabetic chronic kidney disease; N18.3 Chronic kidney disease, stage 3 (moderate); I50.9 Heart failure, unspecified; J44.9 Chronic obstructive pulmonary disease, unspecified; K21.9 Gastro-esophageal reflux disease without esophagitis; E78.5 Hyperlipidemia, unspecified; I34.1 Nonrheumatic mitral (valve) prolapse
CPT/HCPCS: 81003; 87086; 99213; G0463

== ENCOUNTER 2020-08-08 13:57 | Emergency (ER) | payer MEDICARE, SELFPAY ==
[2020-08-08 14:02] VITALS: BP 152/79; PULSE 74; RESP 20; TEMP 36.2; O2SAT 97
--- NOTE | 2020-08-08 14:06 | ED.FEMALEGU ---
HPI - Female Genitourinary General Chief complaint: Urogenital-Female Stated complaint: POS UTI Time Seen by Provider: 08/08/20 14:25 Source: patient and RN notes reviewed Mode of arrival: ambulatory Limitations: no limitations History of Present Illness HPI Narrative: 74-year-old female presents with concern for urinary tract infection. Reports symptoms started this morning with burning, frequency, urgency, suprapubic pressure. She denies fever, back pain, nausea, vomiting. MD elicited complaint: UTI Related Data Home Medications Medication Instructions Recorded Confirmed cyclosporine 0.05 % eye drops 1 drop EACH EYE Q12H 10/24/19 08/08/20 furosemide 20 mg tablet 40 mg PO QAM 10/24/19 08/08/20 rivaroxaban [Xarelto] 15 mg PO DAILY 07/11/20 08/08/20 umeclidinium-vilanterol [Anoro 1 ea INHALATION DAILY 07/11/20 07/11/20 Ellipta] Allergies Allergy/AdvReac Type Severity Reaction Status Date / Time amiodarone Allergy Severe Unknown Verified 08/08/20 14:02 Jfdvcee-Emi-Gcl Reductase Allergy Severe Muscle Pain Verified 08/08/20 14:02 Inhibitor cephalexin Allergy Unknown Rash Verified 08/08/20 14:02 ciprofloxacin Allergy Unknown Unknown Verified 08/08/20 14:02 nitrofurantoin Allergy Unknown hand Verified 08/08/20 14:02 swelling Review of Systems Review of Systems: Narrative: CONSTITUTIONAL: Denies malaise, chills, sweats, or fever. CARDIOVASCULAR: Denies chest pain, palpitations, or edema. RESPIRATORY: Denies cough or dyspnea. GASTROINTESTINAL: Denies abdominal pain, nausea, vomiting, diarrhea, bloody, or mucous stools. GENITOURINARY: Reports urgency, frequency, dysuria. Denies flank pain, abnormal vaginal discharge or bleeding, hematuria. SKIN: Denies rash or itching. MUSCULOSKELETAL: Denies myalgia. 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isease) History of ventricular tachycardia HLD (hyperlipidemia) HTN (hypertension) Hypertensive heart disease with heart failure Mitral valve regurgitation Mixed hyperlipidemia Myocardial infarction Pneumonia Seasonal allergies Statin myopathy Type 2 diabetes mellitus without complications UTI (urinary tract infection) Surgical History Surgical History H/O cardiac catheterization H/O maze procedure H/O mitral valve repair With a ring H/O: hysterectomy History of mitral valve repair Family History Family History Mother Family history of diabetes mellitus in first degree relative Family history of lung cancer Father Family history of coronary artery disease Hypertension Sibling Family history of diabetes mellitus in first degree relative Social History Social History Social History: She has with her for over 50 years. 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 She desires to be full code. She smoked to half pack a cigarettes per day for 40 years quit March 14, 2014. no alcohol or illicit drugs. 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 She has 2 children. Smoking packs per day: 1 Smoking cigarettes per day: 20.0 Years smoked: 25 Smoking pack-years: 25.00 Smoking status: Former smoker Tobacco type: cigarettes Second hand tobacco smoke exposure: No Smoking end date: 10/18/13 Alcohol intake: never Substance use: never Substance use typ
== END 2020-08-08 14:45 | disposition home or self-care (01) ==
PROVIDERS: Emergency Provider Nurse Practitioner; PCP Family Medicine
DX: R35.0 Frequency of micturition (principal); R30.0 Dysuria; R39.15 Urgency of urination; I48.91 Unspecified atrial fibrillation; D64.9 Anemia, unspecified; F41.9 Anxiety disorder, unspecified; M19.90 Unspecified osteoarthritis, unspecified site; I25.10 Atherosclerotic heart disease of native coronary artery without angina pectoris; K21.9 Gastro-esophageal reflux disease without esophagitis; E78.5 Hyperlipidemia, unspecified; E78.2 Mixed hyperlipidemia; I25.2 Old myocardial infarction; I13.0 Hypertensive heart and chronic kidney disease with heart failure and stage 1 through stage 4 chronic kidney disease, or unspecified chronic kidney disease; E11.22 Type 2 diabetes mellitus with diabetic chronic kidney disease; N18.30 Chronic kidney disease, stage 3 unspecified; I50.30 Unspecified diastolic (congestive) heart failure; Z79.84 Long term (current) use of oral hypoglycemic drugs; Z79.01 Long term (current) use of anticoagulants; J44.9 Chronic obstructive pulmonary disease, unspecified
CPT/HCPCS: 81003; 87086; 99213; G0463

== ENCOUNTER → 2021-02-13 12:48 | Outpatient (CLI) | payer MEDICARE, SELFPAY ==
--- NOTE | ~2021-02-13 | CT_ITS ---
EXAMINATION: CT diagnostic chest wo con DATE: 02/13/2021 13:07 INDICATION: sob, copd TECHNIQUE: Computed tomography (CT) of the chest was performed without intravenous contrast. Addition al 3D reconstructions utilizing coronal maximum intensity projection (MIP) were performed. Automated exposure control and iterative reconstruction technique were employed. The dose-length product was 78 .64 mGy-cm. COMPARISON: Chest CT dated 01/29/2019 FINDINGS: No significant interval change in multiple <4 mm calcified and noncalcified pulmonary nodules scatter ed throughout both lungs likely sequela of old granulomatous disease. Again seen is mosaic attenuatio n with similar pattern of groundglass opacity with scattered subsegmental regions of more lucent air trapping consistent with small airway disease. No pulmonary edema, pneumonia or pleural effusion. Mil d cardiomegaly. Atherosclerotic coronary artery calcifications. Mitral valve repair. No pericardial e ffusion. Moderate-sized sliding-type hiatal hernia. Thoracic aorta is normal in caliber. Multiple sma ll likely reactive mediastinal lymph nodes. No pathologically enlarged thoracic lymphadenopathy. Visu alized upper abdomen is unremarkable. Mild thoracic spondylosis. IMPRESSION: 1. Chronic mosaic attenuation throughout both lungs most likely related to scattered subsegmental air trapping related to small airway disease. 2. Mild cardiomegaly with change of prior mitral valve repair. 3. Unchanged mild mediastinal lymphadenopathy which is likely reactive. Reviewed, dictated and finalized at location A. IMPRESSION: 1. Chronic mosaic attenuation throughout both lungs most likely related to scat tered subsegmental air trapping related to small airway disease. 2. Mild cardiomegaly with change of prior mitral valve repair. 3. Unchanged mild mediastinal lymphadenopathy which is likely reactive.
== END ==
PROVIDERS: PCP Student in an Organized Health Care Education/Training Program; Visit Provider Student in an Organized Health Care Education/Training Program
DX: J44.9 Chronic obstructive pulmonary disease, unspecified (principal); R06.02 Shortness of breath; I51.7 Cardiomegaly
CPT/HCPCS: 71250

== ENCOUNTER 2021-03-09 14:05 | Emergency (ER) | payer MEDICARE, SELFPAY ==
--- NOTE | 2021-03-09 14:07 | ED.FEMALEGU ---
HPI - Female Genitourinary General Chief complaint: Urogenital-Female Stated complaint: BURNING URINATION/CHILLS Time Seen by Provider: 03/09/21 14:30 Source: patient and RN notes reviewed Mode of arrival: ambulatory Limitations: no limitations History of Present Illness HPI Narrative: 75-year-old female presents concern for dysuria, urgency, suprapubic pressure that started yesterday. She reports chills, fatigue. Reports history of urinary tract infections. She reports she takes Lasix so has polyuria. She denies fever, body aches, flank pain. Reports she took Azo with little relief. MD elicited complaint: UTI Related Data Home Medications Medication Instructions Recorded Confirmed cyclosporine 0.05 % eye drops 1 drop EACH EYE Q12H 10/24/19 03/09/21 furosemide 20 mg tablet 40 mg PO QAM 10/24/19 03/09/21 carvedilol 12.5 mg PO BID 03/09/21 03/09/21 hydralazine 25 mg PO BID 03/09/21 03/09/21 potassium chloride 20 meq PO DAILY 03/09/21 03/09/21 rosuvastatin 5 mg PO DAILY 03/09/21 03/09/21 Allergies Allergy/AdvReac Type Severity Reaction Status Date / Time amiodarone Allergy Severe Unknown Verified 08/08/20 14:02 Hjjnncc-Pce-Nbw Reductase Allergy Severe Muscle Pain Verified 08/08/20 14:02 Inhibitor cephalexin Allergy Unknown Rash Verified 08/08/20 14:02 ciprofloxacin Allergy Unknown Unknown Verified 08/08/20 14:02 nitrofurantoin Allergy Unknown hand Verified 08/08/20 14:02 swelling Review of Systems Review of Systems: Narrative: CONSTITUTIONAL: Denies malaise, sweats, or fever. Reports chills and fatigue CARDIOVASCULAR: Denies chest pain, palpitations, or edema. RESPIRATORY: Denies cough or dyspnea. GASTROINTESTINAL: Denies abdominal pain, vomiting, diarrhea, constipation. Reports nausea GENITOURINARY: Reports dysuria, frequency. Denies flank pain or hematuria. SKIN: Denies rash or itching. MUSCULOSKELETAL: Denies back pain, joint pain, or myalgia. NEUROLOGIC: Denies numbness, weakness, or headache. 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isease) History of ventricular tachycardia HLD (hyperlipidemia) HTN (hypertension) Hypertensive heart disease with heart failure Mitral valve regurgitation Mixed hyperlipidemia Myocardial infarction Pneumonia Seasonal allergies Statin myopathy Type 2 diabetes mellitus without complications UTI (urinary tract infection) Surgical History Surgical History H/O cardiac catheterization H/O maze procedure H/O mitral valve repair With a ring H/O: hysterectomy History of mitral valve repair Family History Family History Mother Family history of diabetes mellitus in first degree relative Family history of lung cancer Father Family history of coronary artery disease Hypertension Sibling Family history of diabetes mellitus in first degree relative Social History Social History Social History: She has with her for over 50 years. 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 She desires to be full code. She smoked to half pack a cigarettes per day for 40 years quit March 14, 2014. no alcohol or illicit drugs. 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 She has 2 children. Smoking packs per day: 1 Smoking cigarettes per day: 20.0 Years smoked: 25 Smoking pack-y
[2021-03-09 14:20] VITALS: BP 158/58; PULSE 67; RESP 16; TEMP 36.2; O2SAT 99
== END 2021-03-09 14:52 | disposition home or self-care (01) ==
PROVIDERS: Emergency Provider Nurse Practitioner; PCP Student in an Organized Health Care Education/Training Program
DX: R30.0 Dysuria (principal); Z87.891 Personal history of nicotine dependence; I48.0 Paroxysmal atrial fibrillation; M19.90 Unspecified osteoarthritis, unspecified site; J44.9 Chronic obstructive pulmonary disease, unspecified; K21.9 Gastro-esophageal reflux disease without esophagitis; E78.5 Hyperlipidemia, unspecified; I13.0 Hypertensive heart and chronic kidney disease with heart failure and stage 1 through stage 4 chronic kidney disease, or unspecified chronic kidney disease; E11.22 Type 2 diabetes mellitus with diabetic chronic kidney disease; N18.30 Chronic kidney disease, stage 3 unspecified; I50.32 Chronic diastolic (congestive) heart failure; I25.10 Atherosclerotic heart disease of native coronary artery without angina pectoris; I25.2 Old myocardial infarction
CPT/HCPCS: 81003; 87086; 87088; 99213; G0463

== ENCOUNTER 2021-04-20 09:29 | Inpatient (IN) | payer MEDICARE, SELFPAY ==
[2021-04-20] VITALS (37 sets, daily range): BP systolic 147–188; BP diastolic 56–81; PULSE 64–98; RESP 13–35; TEMP 36–36.6; O2SAT 89–100; BMI 26.3
--- NOTE | ~2021-04-20 | XR_ITS ---
EXAMINATION: XR chest 2V DATE: 04/20/2021 09:50 INDICATION: Shortness of breath TECHNIQUE: AP and lateral views of the chest are obtained. COMPARISON: 12/28/2019 FINDINGS: Cardiomegaly is noted. There is a mild diffuse interstitial pattern. Changes of mitral valv e repair are noted. There is a moderate-sized hiatal hernia. There is moderate thoracic spondylosis. Surgical clips project over the right shoulder. IMPRESSION: 1. No acute cardiopulmonary abnormality. Reviewed, dictated and finalized at location A.
--- NOTE | ~2021-04-20 | XR_ITS ---
XR chest 2V 04/23/2021 18:16 Indication: Shortness of breath Procedure: PA and lateral views of the chest Comparison: Comparison to multiple prior studies sequentially, with oldest reviewed study dated 04/2017. Findings: There is a prosthetic heart valve. Borderline heart size. There is a large hiatal hernia. N o focal air space disease, pulmonary edema, pleural effusion or suspected pneumothorax. Impression: 1: No acute cardiopulmonary disease. 2: Large hiatal hernia. Reviewed, dictated and finalized at location A. Impression: 1: No acute cardiopulmonary disease. 2: Large hiatal hernia.
--- NOTE | ~2021-04-20 | NM_ITS ---
EXAMINATION: NM renal flow and function DATE: 04/24/2021 13:43 INDICATION: Acute kidney injury. TECHNIQUE: 8 mCi Tc-99m MAG3 was administered IV. The patient was scanned in the supine position. A posterior abdominal radionuclide angiogram was obtained. A subsequent time course of static images of the kidneys, ureters, and bladder was obtained. COMPARISON: None FINDINGS: The posterior abdominal radionuclide angiogram and sequential static images show focal decr eased activity in right kidney correlating with a cyst by ultrasound.. Peak renal parenchymal uptake was 5 min in right kidney and 7 min in left kidney (normal peak 3-5 minutes). The relative early mario al uptake was 52% on the right and 48% on the left (<40% is abnormal). No abnormalities of the urete rs or bladder are seen. T1/2 for clearance of activity from the right kidney and proximal collecting system was >>20 minutes. T1/2 for clearance of activity from the left kidney and proximal collecting system was >>20 minutes. IMPRESSION: 1. Symmetric kidney function. 2. Delayed contrast uptake and clearance by the kidneys, consistent with decreased kidney function. Reviewed, dictated and finalized at location A. IMPRESSION: 1. Symmetric kidney function. 2. Delayed contrast uptake and clearance by the kidneys, consistent with decre ased kidney function.
--- NOTE | ~2021-04-20 | US_ITS ---
EXAMINATION: US renal BI DATE: 04/21/2021 11:59 INDICATION: Acute on chronic kidney disease TECHNIQUE: Multiple grayscale and Doppler ultrasound images of the kidneys were obtained. COMPARISON: 07/30/2015 FINDINGS: The right kidney measures 10.1 x 5.2 x 4.5 cm and contains a 5.8 cm cyst. The left kidney m easures 9.7 x 5.0 x 4.6 cm. The kidneys demonstrate increased parenchymal echogenicity. There is no h ydronephrosis. The bladder is normal. IMPRESSION: 1. Medical renal disease. Reviewed, dictated and finalized at location A. IMPRESSION: 1. Medical renal disease.
--- NOTE | 2021-04-20 09:37 | ECG_ITS ---
Measurements Intervals [place] Rate: 77 P: 59 IA: 188 QRS: -12 QRSD: 142 T: 92 QT: 425 QTc: 483 Interpretive Statements SINUS RHYTHM VENTRICULAR TRIGEMINY INTRAVENTRICULAR CONDUCTION DELAY ANTEROSEPTAL INFARCT, AGE INDETERMINATE BORDERLINE ST-T WAVE ABNORMALITY- HIGH LATERAL LEADS BASELINE ARTIFACT- V3-V6 ABNORMAL ECG Electronically Signed On 04-20-2021 21:36:40 CDT by Clyde Rowell D.O.
[2021-04-20 09:49] LABS: Basophils Absolute Auto 0.1 K/mm3 (0.0-0.1); Basophils Percent Auto 0.4 % (0.2-1.2); Eosinophils Absolute Auto 0.1 K/mm3 (0-0.3); Eosinophils Percent Auto 0.7 % (0-4.4); Hemoglobin 10.7 g/dL (12.0-15.0); Immature Granulocyte Absolute 0.06 K/mm3 (0.00-0.031); Immature Granulocyte Percent A 0.4 % (0-0.5); Mean Corpuscular HGB Conc 31.5 g/dl (32-36); Mean Corpuscular Hemoglobin 28.4 pg (26-34); Mean Corpuscular Volume 90.2 fl (80-100); Mean Platelet Volume 10.2 fl (7.4-10.4); Monocytes Absolute Auto 0.8 K/mm3 (0.1-0.6); Neutrophils Absolute Auto 14.2 K/mm3 (1.3-6.7); Neutrophils Percent Auto 84.5 % (45.5-73.1); Platelet Count Result 280 k/mm3 (150-375); Red Blood Count 3.77 M/mm3 (4.2-5.4); Red Cell Distribution Width 13.2 % (11.5-14.5); White Blood Count 16.7 K/mm3 (4.5-10.0)
[2021-04-20 09:59] LABS: Anion Gap 12 mmol/L (8-16); Blood Urea Nitrogen 30 mg/dL (7-17); Calcium 9.1 mg/dL (8.4-10.2); Carbon Dioxide 23 mmol/L (22-30); Chloride 107 mmol/L (98-107); Estimated CRCL calculation 15 ml/min; Estimated Glomerular Filt Rate 16; Glucose 145 mg/dL (65-105); Potassium 4.1 mmol/L (3.4-5.0); Sodium 142 mmol/L (137-145)
--- NOTE | 2021-04-20 10:05 | ED.SOB ---
HPI - SOB/Dyspnea General Chief Complaint: Shortness of Breath/Dyspnea Stated Complaint: shortness of breath, chf Time Seen by Provider: 04/20/21 09:52 Source: patient Mode of arrival: ambulatory Limitations: no limitations History of Present Illness HPI Narrative: Patient is a seven 5-year-[age] female complaining of shortness of breath, worse with exertion x2 days. Patient states that she has a history of CHF. Patient's oxygen saturation upon arrival was 92%, placed on 2 L nasal cannula. Patient denies any chest pain, abdominal pain, nausea, vomiting, fever or chills. Related Data Home Medications Medication Instructions Recorded Confirmed cyclosporine 0.05 % eye drops 1 drop EACH EYE Q12H 10/24/19 03/09/21 furosemide 20 mg tablet 40 mg PO QAM 10/24/19 03/09/21 carvedilol 12.5 mg PO BID 03/09/21 03/09/21 hydralazine 25 mg PO BID 03/09/21 03/09/21 potassium chloride 20 meq PO DAILY 03/09/21 03/09/21 rosuvastatin 5 mg PO DAILY 03/09/21 03/09/21 Allergies Allergy/AdvReac Type Severity Reaction Status Date / Time amiodarone Allergy Severe Unknown Verified 08/08/20 14:02 Ntjxbol-Gnl-Tct Reductase Allergy Severe Muscle Pain Verified 08/08/20 14:02 Inhibitor cephalexin Allergy Unknown Rash Verified 08/08/20 14:02 ciprofloxacin Allergy Unknown Unknown Verified 08/08/20 14:02 nitrofurantoin Allergy Unknown hand Verified 08/08/20 14:02 swelling Review of Systems Review of Systems: All systems reviewed & are unremarkable except as noted in HPI and below Constitutional: Constitutional: Denies body ache(s), Denies chills, Denies excessive sweating, Denies fatigue, Denies fever(s), Denies headache(s), Denies lethargy, Denies malaise, Denies weakness and Denies weight loss Eyes: Eyes: Denies blurry vision, Denies change in vision and Denies loss of vision ENT: Denies dizziness, Denies ear discharge, Denies headache(s), Denies lip swelling, Denies epistaxis, Denies nasal congestion, Denies neck pain, Denies throat swelling and Denies tongue swelling Cardiovascular: Cardiovascular: Denies chest pain, Denies chest pain at rest, Denies chest pain with activity, Denies diaphoresis, Denies rapid heart rate, Denies edema, Denies irregular heart rhythm, Denies lightheadedness and Denies palpitations Respiratory: Respiratory: Denies chest congestion, Denies cough and Denies hemoptysis Gastrointestinal: Gastrointestinal: Denies abdominal pain, Denies melena, Denies hematochezia, Denies diarrhea, Denies nausea, Denies vomiting and Denies hematemesis Musculoskeletal: Musculoskeletal: Denies abnormal gait, Denies deformity, Denies joint swelling, Denies limited range of motion, Denies neck pain and Denies numbness Neurologic: Denies Abnormal speech present, Denies abnormal gait, Denies confusion, Denies dizziness, Denies headache(s), Denies focal weakness, Denies loss of vision, Denies numbness, Denies Other visual disturbances, Denies Sensory deficit (Neuro) and Denies weakness Psychiatric: Psychiatric: Denies confusion, Denies depression, Denies auditory hallucinations, Denies homicidal ideation and Denies suicidal ideation Endocrine: Endocrine: Denies cold intolerance, Denies excessive sweating, Denies fatigue, Denies heat intolerance and Denies palpitations Hematologic/Lymphatic: Hematologic/Lymphatic: Denies easy bleeding and Denies easy bruising Allergic/Immunologic: Allergic/Immunologic: Denies lip swelling, Denies throat swelling and Denies tongue swelling PMFSH Past Medical History Medical History (Updated 04/20/21 @ 10:33 by Kapil Drake MD) A-fib Paroxysmal Anemia Anxiety Arthritis Bronchitis CAD (coronary artery disease) 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
[2021-04-20 10:08] LABS: NT Pro B Type Natriuretic Pept 5430 pg/mL (5-100)
[2021-04-20] MEDS: FUROSEMIDE INJ 40 MG/4 ML VIAL IV PUSH (10:25)
[2021-04-20] MEDS: IPRATROPIUM BR 0.02% INH SOLN 0.5 MG/2.5 ML VIAL INHALATION (10:31)
[2021-04-20] MEDS: ALBUTEROL SULFATE NEB 2.5 MG/0.5 ML INH 5 MG INHALATION (10:31)
[2021-04-20 10:43] LABS: Prothrombin Time 12.6 Seconds (11.1-14.7)
[2021-04-20 10:44] LABS: Partial Thromboplastin Time 24.1 SECONDS (22.3-36.8)
[2021-04-20 10:55] LABS: Troponin I < 0.012 ng/mL (0.000-0.034)
--- NOTE | 2021-04-20 12:36 | ADMGEN ---
This patient, Jennifer Schofield, was admitted to IMU Room 204-01. Patient/family oriented to hospital policies and general routines including ID bracelet, bed and alarms, visiting hours, pain management, procedures, bathroom and other care routines, personal items, smoking policy, room service/diet, and visiting hours. Information on how to activate the Rapid Response Team has been discussed. Patient/Family are encouraged to report perceived risks to care and to ask questions if they do not understand what they are told or what they should do.
--- NOTE | 2021-04-20 13:05 | PM.IMPN ---
Subjective Date/time seen: 04/20/21 13:05 I FEEL GOOD Review of Systems Review of Systems: All systems reviewed & are unremarkable except as noted in HPI and below Constitutional: Constitutional: Denies body ache(s), Denies chills, Denies excessive sweating, Denies fatigue, Denies fever(s), Denies headache(s), Denies lethargy, Denies malaise, Denies weakness and Denies weight loss Eyes: Eyes: Denies blurry vision, Denies change in vision and Denies loss of vision ENT: Denies dizziness, Denies ear discharge, Denies headache(s), Denies lip swelling, Denies epistaxis, Denies nasal congestion, Denies neck pain, Denies throat swelling and Denies tongue swelling Cardiovascular: Cardiovascular: Denies chest pain, Denies chest pain at rest, Denies chest pain with activity, Denies diaphoresis, Denies rapid heart rate, Denies edema, Denies irregular heart rhythm, Denies lightheadedness and Denies palpitations Respiratory: Respiratory: Denies chest congestion, Denies cough and Denies hemoptysis Gastrointestinal: Gastrointestinal: Denies abdominal pain, Denies melena, Denies hematochezia, Denies diarrhea, Denies nausea, Denies vomiting and Denies hematemesis Musculoskeletal: Musculoskeletal: Denies abnormal gait, Denies deformity, Denies joint swelling, Denies limited range of motion, Denies neck pain and Denies numbness Neurologic: Denies Abnormal speech present, Denies abnormal gait, Denies confusion, Denies dizziness, Denies headache(s), Denies focal weakness, Denies loss of vision, Denies numbness, Denies Other visual disturbances, Denies Sensory deficit (Neuro) and Denies weakness Psychiatric: Psychiatric: Denies confusion, Denies depression, Denies auditory hallucinations, Denies homicidal ideation and Denies suicidal ideation Endocrine: Endocrine: Denies cold intolerance, Denies excessive sweating, Denies fatigue, Denies heat intolerance and Denies palpitations Hematologic/Lymphatic: Hematologic/Lymphatic: Denies easy bleeding and Denies easy bruising Allergic/Immunologic: Allergic/Immunologic: Denies lip swelling, Denies throat swelling and Denies tongue swelling Exam Const: General: cooperative, comfortable, well developed, alert and awake; No confusion Orientation/consciousness: oriented to person, oriented to place, oriented to time, patient oriented x3 and No confusion Limitations: no limitations Other: Moderate distress HENMT: Head: normal to inspection, normocephalic and atraumatic Ears: hearing grossly normal bilaterally, TM normal on the right and TM normal on the left General nose exam: Normal external nose present, Normal nares present and No nasal discharge present Face and sinus: normal facial exam Mouth: Yes Normal oral and palatal mucosa present, Yes lip normal, Yes tongue normal and Yes oropharynx normal Throat: posterior oropharynx normal, tonsils normal and uvula midline Eyes: General: appearance normal, both eyes and all related structures Pupils: Equal, round and reactive pupils present EOM: EOMs intact bilaterally Neck: Neck: normal visual inspection, full ROM, no lymphadenopathy and no meningeal signs Chest: Chest palpation & inspection: normal inspection of the chest Resp: Other: Moderate respiratory distress, Rales bilaterally, decreased breath sounds bilaterally Cardio: Rate: regular rate Rhythm: regular rhythm GI: Inspection: normal to inspection Auscultation: normal bowel sounds : General: Yes no CVA tenderness Back/Spine/Pelvis: Back: no CVA tenderness Skin: General skin exam: normal color, no rashes or lesions noted, elasticity normal and turgor normal Neuro: General: oriented to person, oriented to place, oriented to time, patient oriented x3, tone normal, moves all extremities, Normal light touch and pain sensation, no meningeal signs, no focal motor deficits, CN's II-XI intact bilaterally and No confusion Cranial nerves: Yes Equal, round and reactive pupils present Speech: No Abnormal speech
--- NOTE | 2021-04-20 13:07 | PM.IMHP ---
H&P: HPI History of Present Illness Date/Time: 04/20/21 13:07 Chief Complaint: shortness of breath Narrative: this is a 75-year-old female with past medical history significant for breast CA status post mastectomy this was 26 years ago, hypertension, COPD/asthma, atrial fibrillation, coronary artery disease, chronic diastolic heart failure, type 2 diabetes mellitus. patient presented to the emergency room due to progressively worsening shortness of breath for the last week or so had to asleep in her recliner Wednesday did and decided to come to the emergency room on Wednesday as she was not able to sleep. She has some mild intermittent cough which is dry no chest pain no leg swelling, has orthopnea, no chest pain no nausea no vomiting, no dizziness, no lightheadedness, no syncope or near syncope, no fevers no rigors no chills, no abdominal pain. she has been her usual state of health up until this. Review of Systems Review of Systems: All systems reviewed & are unremarkable except as noted in HPI and below Constitutional: Constitutional: Denies body ache(s), Denies chills, Denies excessive sweating, Denies fatigue, Denies fever(s), Denies headache(s), Denies lethargy, Denies malaise, Denies weakness and Denies weight loss Eyes: Eyes: Denies blurry vision, Denies change in vision and Denies loss of vision ENT: Denies dizziness, Denies ear discharge, Denies headache(s), Denies lip swelling, Denies epistaxis, Denies nasal congestion, Denies neck pain, Denies throat swelling and Denies tongue swelling Cardiovascular: Cardiovascular: Denies chest pain, Denies chest pain at rest, Denies chest pain with activity, Denies diaphoresis, Denies rapid heart rate, Denies edema, Denies irregular heart rhythm, Denies lightheadedness and Denies palpitations Respiratory: Respiratory: Denies chest congestion, Denies cough and Denies hemoptysis Gastrointestinal: Gastrointestinal: Denies abdominal pain, Denies melena, Denies hematochezia, Denies diarrhea, Denies nausea, Denies vomiting and Denies hematemesis Musculoskeletal: Musculoskeletal: Denies abnormal gait, Denies deformity, Denies joint swelling, Denies limited range of motion, Denies neck pain and Denies numbness Neurologic: Denies Abnormal speech present, Denies abnormal gait, Denies confusion, Denies dizziness, Denies headache(s), Denies focal weakness, Denies loss of vision, Denies numbness, Denies Other visual disturbances, Denies Sensory deficit (Neuro) and Denies weakness Psychiatric: Psychiatric: Denies confusion, Denies depression, Denies auditory hallucinations, Denies homicidal ideation and Denies suicidal ideation Endocrine: Endocrine: Denies cold intolerance, Denies excessive sweating, Denies fatigue, Denies heat intolerance and Denies palpitations Hematologic/Lymphatic: Hematologic/Lymphatic: Denies easy bleeding and Denies easy bruising Allergic/Immunologic: Allergic/Immunologic: Denies lip swelling, Denies throat swelling and Denies tongue swelling PMFSH Past Medical History Medical History (Updated 04/20/21 @ 10:33 by Kapil Drake MD) A-fib Paroxysmal Anemia Anxiety Arthritis Bronchitis CAD (coronary artery disease) 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isease) History of ventricular tachycardia HLD (hyperlipidemia) HTN (hypertension) Hypertensive heart disease with heart failure Mitral valve regurgitation Mixed hyperlipidemia Myocardial infarction Pneumonia Seasonal allergies Statin myopathy Type 2 diabetes mellitus without complications UTI (urinary tract infection) Surgical History Surgical History H/O cardiac catheterization H/O maze procedure H/
--- NOTE | 2021-04-20 15:51 | PM.IMHP ---
H&P: HPI History of Present Illness Date/Time: 04/20/21 15:51Thimanny is a 75-year-old female patient who has a history of CHF and COPD. She also has a history of chronic renal failure stage 3. The patient stated that she has been using her medications as prescribed. She stated that she has not eaten anything differently and she has actually lost weight since she has had her heart attack. The patient stated that she has been more short of breath over the last 2 days especially with exertion. The patient stated that she does not use oxygen at home. The patient's oxygen levels found to be 92% when she came to the ER and she was placed on 2 L per nasal cannula. The patient complained of having nasal congestion. She denied of any nausea vomiting fever chills. White count was noted to be 16.7. H&H is 10.7 and 34.0. BUN is 30 creatinine is 2.8. Her last creatinine was 1.8 and that was a year ago. GFR is now 16. Glucose 145. BNP 5430. Chest x-ray was read as no acute cardiopulmonary abnormality. The patient was given IV Lasix and nebulizer treatments in the emergency room. The patient stated that she was still short of breath. The patient is being admitted to inpatient services on the date of service of 04/20/2021. Chief Complaint: sob Review of Systems Review of Systems: All systems reviewed & are unremarkable except as noted in HPI and below Constitutional: Constitutional: Reports as per HPI and Reports no additional constitutional complaints Eyes: Eyes: Reports as per HPI and Reports no additional eye complaints ENT: Reports system reviewed and no additional complaints, except as documented and Reports Normal hearing present Cardiovascular: Cardiovascular: Reports no additional cardiovascular complaints Respiratory: Respiratory: Reports no additional respiratory complaints and Reports no additional respiratory complaints Gastrointestinal: Gastrointestinal: Reports as per HPI and Reports no additional gastrointestinal complaints Musculoskeletal: Musculoskeletal: Reports no additional musculoskeletal complaints Integumentary/Breasts: Skin/Breast: Reports system reviewed and no additional complaints, except as docu and Reports as per HPI Neurologic: Reports system reviewed and no additional complaints, except as documented, Reports as per HPI and Reports Normal hearing present Psychiatric: Psychiatric: Reports no additional psychiatric complaints and Reports as per HPI Endocrine: Endocrine: Reports no additional endocrine complaints Hematologic/Lymphatic: Hematologic/Lymphatic: Reports no additional hematologic/lymphatic complaints Allergic/Immunologic: Allergic/Immunologic: Reports no additional allergic/immunologic complaints [facility] Past Medical History Medical History (Updated 04/20/21 @ 16:02 by Arina Lopez NP) A-fib Paroxysmal Anemia Anxiety Arthritis Bronchitis CAD (coronary artery disease) 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 CHF (congestive heart failure) Chronic diastolic CHF (congestive heart failure) Chronic kidney disease, stage III (moderate) COPD (chronic obstructive pulmonary disease) Diabetes mellitus GERD (gastroesophageal reflux disease) History of ventricular tachycardia HLD (hyperlipidemia) HTN (hypertension) Hypertensive heart disease with heart failure Mitral valve regurgitation Mixed hyperlipidemia Myocardial infarction Pneumonia Seasonal allergies Statin myopathy Type 2 diabetes mellitus without complications UTI (urinary tract infection) Surgical History Surgical History H/O cardiac catheterization H/O maze procedure H/O mitral valve repair With a ring H/O: hysterectomy History of mitral valve repair Family History Family History Mother Family history of diabetes mellitus in first degree relative Family history of lung cancer Father Fa
[2021-04-20 16:55] LABS: Glucose Point of Care 134 mg/dl (65-105)
--- NOTE | 2021-04-20 16:55 | PM.CNCAR ---
Assessment and Plan Additional Plan 75-year-old lady with a history of chronic total occlusion of the right coronary artery, prior history of atrial fibrillation and severe mitral regurgitation. She was treated operatively with a mitral valve repair and a Maze procedure 5 years ago. Since then I have personally not seen any evidence of decompensated heart failure in this lady. She does have worsening shortness of breath which obviously is her concern but her physical exam and chest x-ray in my opinion really did not suggest any evidence of volume overload and decompensated heart failure. For now I would leave her on her standard cardiac medications that she is on now. I would consider backing off on her diuretics since it seems that her renal insufficiency is getting worse and this could possibly be the result of over-diuresis. She has not noticed that her dyspnea has improved at all with the higher dose of furosemide. An echocardiogram has been ordered and will be done tomorrow for evaluation of her cardiac status and her mitral valve repair but at this point I am not highly suspicious that her dyspnea is primarily a cardiac problem. Obviously her renal function sounds like it is getting worse and Nephrology consultation may be helpful /necessary at some point Devin Giles MD [facility] History of Present Illness History of Present Illness Consult date/time: 04/20/21 16:55 Consult reason: shortness of breath Reason For Visit: chf exacerb,carlito on ckd Narrative: this is a 75-year-old woman who I am asked to see this afternoon by the hospitalist for assistance with the evaluation and management of shortness of breath she was admitted to the hospital with diagnosis of congestive heart failure. This is a patient who is well known to me with a history of coronary artery disease, paroxysmal atrial fibrillation and valvular heart disease. She was very short of breath 5 years ago when I met her in 2016 and she was having difficulty with congestive heart failure related to severe mitral valve regurgitation. She was referred for surgery after that evaluation was found to have a chronic total occlusion right coronary artery with collateral filling. She underwent a mitral valve repair involving a ring annuloplasty and a quadrangular resection as well as a intraoperative Maze procedure. After that she did well and has been seen in my office since then. She was anticoagulated right after the surgery but that was stopped subsequently because she developed a spontaneous perirenal hematoma that complicated anticoagulation treatment. She had a symptomatic episode of atrial fibrillation in December of 2019 at which time she was hospitalized for treatment again and was placed on diltiazem and beta-richard treatment and was restored back in to sinus rhythm. I saw her last in my office for follow-up in December of this year. Her only complaint was that of chronic worsening exertional dyspnea it which was of unclear etiology. Her evaluation last year with an echocardiogram demonstrated normal left ventricular systolic function and a very small amount of residual MR. He is not reporting any anginal-type chest pain. She does have chronic kidney disease which is clearly worsening her creatinine at this time is 2.8 giving her an EGFR of 16. That is increased from her previous baseline. She says she was hospitalized with the shortness of breath in the 3rd week of February at [facility]. She went there because her new PCP is physician employed by [employer] therefore shortness of breath she was told that she was in congestive heart failure and her Lasix dosage was advanced. Obviously I do not have access to those records. Her chest x-ray here at [facility] shows a normal-sized cardiac silhouette and no evidence of pulmonary vascular congestion and in my opinion. She is not reporting any accumulating lower extremity edema. Electrocardiogram still shows maintenance of sinus rhythm
[2021-04-20] MEDS: hydrALAZINE HCL 25 MG TABLET PO (17:42)
[2021-04-20] MEDS: methylPREDNISolone SOD SUCC 125 MG VIAL 60 MG IV PUSH ×2 (17:42→21:10)
[2021-04-20 20:35] LABS: Glucose Point of Care 183 mg/dl (65-105)
[2021-04-20] MEDS: carvediloL 12.5 MG TABLET PO (21:10)
[2021-04-20] MEDS: FUROSEMIDE INJ 40 MG/4 ML VIAL 20 MG IV PUSH (21:10)
[2021-04-20] MEDS: cycloSPORINE 0.4 ML OPHTH SOLUTION 1 DROP EACH EYE (21:11)
[2021-04-20] MEDS: ROSUVASTATIN 5 MG TABLET PO (21:11)
[2021-04-21] VITALS (25 sets, daily range): BP systolic 135–170; BP diastolic 54–85; PULSE 54–85; RESP 14–20; TEMP 36.1–36.7; O2SAT 92–100
--- NOTE | 2021-04-21 | ECHO_ITS ---
Patient Info Name: Jennifer Schofield Age: 75 years : 1945 Gender: Female Ht: 66 in Wt: 163 lbs BSA: 1.87 m2 HR: 66 bpm BP: 151 / 85 mmHg Heart Rhythm: Sinus Rhythm Technical Quality: Good Exam Date: 04/21/2021 9:18 AM Exam Location: [facility] Exam Room: 204 Patient Status: Inpatient Admit Date: 04/20/2021 Staff Ordering Physician: Felicita Mackey MD Composition Teacher: Katarzyna Butcher RDCS Attending Provider: Felicita Mackey MD Referring Physician: Key SANCHEZ; Exam Type: CA echo doppler color flow Study Info Indications - CHF DECOMPENSATED - Mv repair Complete two-dimensional, color flow and Doppler transthoracic echocardiogram is performed. Summary 1. Complete two-dimensional, color flow and Doppler transthoracic echocardiogram is performed. 2. Left ventricular chamber dimension is normal. 3. Left ventricular systolic function is normal, estimated at 60-65%. 4. 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 5. Mild residual MR after mitral repair. 6. Biatrial dilation. 7. Pulmonary hypertension. Left Ventricle Left ventricular chamber dimension is normal. Left ventricular systolic function is normal, estimated at 60-65%. The left ventricular diastolic function is grade I diastolic dysfunction. Right Ventricle Right ventricular chamber dimension is normal. Left Atria Left atrial chamber dimension is moderately enlarged. Right Atria Right atrial chamber dimension is moderately enlarged. Aortic Valve The aortic valve is normal. Pulmonic Valve The pulmonic valve is normal. Mitral Valve The annuloplasty ring prosthetic mitral valve leaflefts are Empty. 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 Mild residual MR after mitral repair. Tricuspid Valve The tricuspid valve leaflets are normal. There is mild tricuspid valve regurgitation. Pericardium/Pleural The pericardium appears normal. Aorta The aortic root size at the sinus of Valsalva is normal. Left Ventricular Outflow Tract Name Value Normal LVOT 2D LVOT Diameter 2.0 cm LVOT Doppler LVOT Peak Gradient 4 mmHg LVOT Mean Gradient 2 mmHg LVOT VTI 21 cm LVOT VTI/AV VTI Ratio 0.7 LVOT Stroke Volume 68 ml LVOT CO 14.1 l/min LVOT CI 7.5 l/min/m2 Pulmonic Valve Name Value Normal PV Doppler PV Peak Gradient 3 mmHg Mitral Valve Name Value Normal MV 2D/MM ---
--- NOTE | 2021-04-21 02:04 | PCRCNOTE ---
Window of time for administration has passed. See next scheduled administration.
[2021-04-21] MEDS: IPRATROPIUM BR 0.02% INH SOLN 0.5 MG/2.5 ML VIAL INHALATION ×4 (02:19→21:02)
[2021-04-21 04:43] LABS: Basophils Percent Auto 0.1 % (0.2-1.2); Hematocrit 32.8 % (37.0-47.0); Hemoglobin 10.2 g/dL (12.0-15.0); Immature Granulocyte Absolute 0.04 K/mm3 (0.00-0.031); Immature Granulocyte Percent A 0.3 % (0-0.5); Lymphocytes Absolute Auto 0.67 K/mm3 (0.9-3.2); Lymphocytes Percent Auto 5.6 % (18.3-44.2); Mean Corpuscular HGB Conc 31.1 g/dl (32-36); Mean Corpuscular Hemoglobin 28.4 pg (26-34); Mean Corpuscular Volume 91.4 fl (80-100); Mean Platelet Volume 10.6 fl (7.4-10.4); Monocytes Absolute Auto 0.1 K/mm3 (0.1-0.6); Monocytes Percent Auto 0.7 % (2.6-8.5); Neutrophils Absolute Auto 11.2 K/mm3 (1.3-6.7); Neutrophils Percent Auto 93.3 % (45.5-73.1); Platelet Count Result 236 k/mm3 (150-375); Red Blood Count 3.59 M/mm3 (4.2-5.4); Red Cell Distribution Width 13.2 % (11.5-14.5)
[2021-04-21 05:05] LABS: Alanine Aminotransferase 7 U/L (4-35); Albumin Level 3.9 g/dL (3.5-5.1); Alkaline Phosphatase 62 U/L (38-126); Anion Gap 13 mmol/L (8-16); Aspartate Amino Transferase 15 U/L (14-36); Bilirubin,Total 0.6 mg/dL (0.2-1.3); Blood Urea Nitrogen 33 mg/dL (7-17); Calcium 8.9 mg/dL (8.4-10.2); Carbon Dioxide 21 mmol/L (22-30); Chloride 105 mmol/L (98-107); Estimated CRCL calculation 15 ml/min; Estimated Glomerular Filt Rate 17; Glucose 217 mg/dL (65-105); Magnesium 2.3 mg/dL (1.6-2.3); Potassium 3.9 mmol/L (3.4-5.0); Sodium 139 mmol/L (137-145)
[2021-04-21] MEDS: methylPREDNISolone SOD SUCC 125 MG VIAL 60 MG IV PUSH ×3 (06:31→20:42)
[2021-04-21 07:48] LABS: Free T4 Free Thyroxine Reflex 1.36 ng/dL (0.78-2.19)
[2021-04-21 08:35] LABS: Glucose Point of Care 191 mg/dl (65-105)
[2021-04-21] MEDS: POTASSIUM CHLORIDE 20 MEQ TABLET.ER PO (08:41)
[2021-04-21] MEDS: FUROSEMIDE INJ 40 MG/4 ML VIAL 20 MG IV PUSH (08:41)
[2021-04-21] MEDS: carvediloL 12.5 MG TABLET PO ×2 (08:41→20:36)
[2021-04-21] MEDS: UMECLIDINIUM/VILANTEROL 62.5-25 MCG ELLIPTA 1 PUFF INHALATION (08:42)
[2021-04-21] MEDS: hydrALAZINE HCL 25 MG TABLET PO ×2 (08:42→16:13)
[2021-04-21] MEDS: cycloSPORINE 0.4 ML OPHTH SOLUTION 1 DROP EACH EYE ×2 (08:42→20:36)
[2021-04-21 08:43] LABS: Total Triiodothyronine (T3) 0.72 NG/ML (0.97-1.69)
--- NOTE | 2021-04-21 11:07 | PM.IMPN ---
Progress Note: A&P Assessment and Plan (1) Acute exacerbation of CHF (congestive heart failure): Qualifiers: Heart failure type: unspecified Qualified Code(s): I50.9 - Heart failure, unspecified Code(s): I50.9 - Heart failure, unspecified Status: Acute Assessment and Plan: Continue with IV Lasix. Continue with home Coreg. 2DECHO (2) Acute on chronic renal failure: Code(s): N17.9 - Acute kidney failure, unspecified; N18.9 - Chronic kidney disease, unspecified Status: Acute Assessment and Plan: Monitor renal function closely she has stage 5 now. Consult Nephrology. Renal ultrasound CONTINUE TO MONITOR (3) COPD (chronic obstructive pulmonary disease): Code(s): J44.9 - Chronic obstructive pulmonary disease, unspecified Status: Acute Assessment and Plan: Continue with Solu-Medrol and nebulizer treatment CONTINUE TO MONITOR (4) HLD (hyperlipidemia): Code(s): E78.5 - Hyperlipidemia, unspecified Status: Chronic Assessment and Plan: continue with Crestor (5) HTN (hypertension): Code(s): I10 - Essential (primary) hypertension Status: Chronic Assessment and Plan: continue with Coreg, hydralazine, and Lasix CONTINUE TO MONITOR (6) Type 2 diabetes mellitus without complications: Code(s): E11.9 - Type 2 diabetes mellitus without complications Status: Chronic Assessment and Plan: Patient is not on any diabetic medications but she is on steroids now so will check her Accu-Chek AC and HS and check A1c. (7) Mixed hyperlipidemia: Code(s): E78.2 - Mixed hyperlipidemia Status: Chronic Assessment and Plan: Continue with Crestor (8) A-fib: Code(s): I48.91 - Unspecified atrial fibrillation Status: Chronic Assessment and Plan: patient has had an ablation in the past she is on Coreg and Cardizem. She is not on any anticoagulation. CONTINUE TO MONITOR Subjective Date/time seen: 04/21/21 11:07 I feel much better Review of Systems Review of Systems: All systems reviewed & are unremarkable except as noted in HPI and below Constitutional: Constitutional: Reports as per HPI and Reports no additional constitutional complaints Eyes: Eyes: Reports as per HPI and Reports no additional eye complaints ENT: Reports system reviewed and no additional complaints, except as documented and Reports Normal hearing present Cardiovascular: Cardiovascular: Reports no additional cardiovascular complaints Respiratory: Respiratory: Reports no additional respiratory complaints and Reports no additional respiratory complaints Gastrointestinal: Gastrointestinal: Reports as per HPI and Reports no additional gastrointestinal complaints Musculoskeletal: Musculoskeletal: Reports no additional musculoskeletal complaints Integumentary/Breasts: Skin/Breast: Reports system reviewed and no additional complaints, except as docu and Reports as per HPI Neurologic: Reports system reviewed and no additional complaints, except as documented, Reports as per HPI and Reports Normal hearing present Psychiatric: Psychiatric: Reports no additional psychiatric complaints and Reports as per HPI Endocrine: Endocrine: Reports no additional endocrine complaints Hematologic/Lymphatic: Hematologic/Lymphatic: Reports no additional hematologic/lymphatic complaints Allergic/Immunologic: Allergic/Immunologic: Reports no additional allergic/immunologic complaints Exam Const: General: comfortable, no acute distress, well developed, alert and awake Nutritional Appearance: average body habitus Orientation/consciousness: patient oriented x3 HENMT: Head: normal to inspection, normocephalic and atraumatic Ears: hearing grossly normal bilaterally Face and sinus: normal facial exam Eyes: General: appearance normal, both eyes and all related structures Pupils: Equal, round and reactive pupils p
[2021-04-21] MEDS: INSULIN ASPART (*BKC) 100 UNITS/ML SUB-Q ×2 (11:34→16:56)
[2021-04-21 12:01] LABS: Glucose Point of Care 298 mg/dl (65-105)
--- NOTE | 2021-04-21 12:12 | PM.PNCARD ---
Progress Note: A&P Additional Plan 75-year-old lady with: Shortness of breath which I believe was a combination of her chronic lung disease related to previous cigarette smoking as well as possibly some residual pulmonary hypertension which may be irreversible following mitral valve repair 5 years ago. As I mentioned in my note I do not find any physical exam or chest x-ray evidence of left-sided congestive heart failure. Agree with Renal statistical consultant that the patient's furosemide should probably be placed on hold. This dosage was increased by physicians elsewhere in hopes of helping her shortness of breath but her dyspnea has not changed and her renal function has worsened. Patient indicates that there was some conversation going on now about supplying her with home oxygen if she needs it during ambulation. This would be quite reasonable if she meets criteria. Devin Giles MD [facility] Subjective Date/time seen: date of service:04/21/21 12:12 Interval history: Follow-up visit in this 75-year-old lady With: Shortness of breath probably multifactorial but weight of the evidence appears to suggest evidence of some element of COPD and possibly some element of residual pulmonary hypertension from previous mitral valve regurgitation which was present for a while before the mitral valve was repaired 5 years ago. In my opinion this lady does not have decompensated left-sided congestive heart failure. Discussed echocardiographic findings with the patient in detail. She has normal appearing left ventricular systolic function, very modest residual MR of her repaired valve which is certainly a fine result and Doppler evidence to suggest at least moderately elevated pulmonary artery pressure. Exam Const: General: comfortable and no acute distress Other: Thin elderly lady pleasant cooperative no distress normal oxygen saturation at rest on room air HENMT: Mouth: Yes moist mucous membranes Eyes: Sclera: sclerae normal Pupils: Equal, round and reactive pupils present Neck: Neck: supple and no JVD Resp: Effort & Inspection: normal respiratory effort Auscultation: clear to auscultation bilaterally Other: breath sounds somewhat tubular in quality but otherwise clear no rales no wheezing Cardio: Rate: regular rate Rhythm: regular rhythm GI: Auscultation: normal bowel sounds Neuro: Cognition (Neuro): normal cognition Extrem: General: normal to inspection Objective Data Vital Signs Vital Signs: Vital Signs - 24 hr 04/20/21 12:15 04/20/21 12:16 04/20/21 12:32 Temperature Pulse Rate 74 73 Respiratory Rate 25 H 25 H Blood Pressure 181/75 H Pulse Oximetry 95 95 92 04/20/21 12:40 04/20/21 12:50 04/20/21 14:00 Temperature 36.2 C L Pulse Rate 73 76 83 Respiratory Rate 22 H Blood Pressure 181/64 H Pulse Oximetry 96 04/20/21 14:35 04/20/21 16:00 04/20/21 16:52 Temperature 36.0 C L Pulse Rate 98 86 Respiratory Rate 21 H Blood Pressure 152/75 H Pulse Oximetry 90 94 94 04/20/21 18:00 04/20/21 19:24 04/20/21 20:00 Temperature 36.3 C L Pulse Rate 83 87 Respiratory Rate 17 Blood Pressure 152/69 H Pulse Oximetry 100 95 04/20/21 21:10 04/20/21 22:00 04/20/21 23:16 Temperature Pulse Rate 81 64 Respiratory Rate Blood Pressure Pulse Oximetry 95 04/20/21 23:23 04/21/21 00:00 04/21/21 02:00 Temperature 36.2 C L Pulse Rate 66 63 69 Respiratory Rate 18 Blood Pressure 147/56 H Pulse Oximetry 98 04/21/21 02:19 04/21/21 02:26 04/21/21 02:27 Temperature Pulse Rate 68 72 Respiratory Rate 16 14 Blood Pressure Pulse Oximetry 92 04/21/21 04:00 04/21/21 06:00 04/21/21 08:00 Temperature 36.1 C L 36.4 C L Pulse Rate 61 54 L 65 Respiratory Rate 16 18 Blood Pressure 151/85 H 170/63 H Pulse Oximetry 95 99 04/21/21 08:41 04/21/21 08:43 04/21/21 09:04 Temperature Pulse Rate 62 67 71 Respiratory Rate 18 18 Blood Pressure
--- NOTE | 2021-04-21 12:26 | PM.CNNEP ---
Assessment and Plan Assessment and plan (1) Acute on chronic renal failure: Code(s): N17.9 - Acute kidney failure, unspecified; N18.9 - Chronic kidney disease, unspecified Status: Acute Assessment and Plan: the patient has chronic kidney disease. This is most likely due to hypertension and diabetes. She does have some protein in the urine so may have a significant component of the diabetic kidney. The patient has acute kidney injury as well. etiology of this is unclear. She is on a large dose of diuretics at home and if she has not kept up with the fluid but also since it is very hot outside she may be dehydrated. chest x-ray does not show fluid overload. Other etiologies include glomerulonephritis, interstitial nephritis, vascular disease, and obstruction. She does not have much in the way of symptoms or signs of any of these. Will check urine electrolytes and eosinophils, renal ultrasound, I would suggest holding diuretics for now. Continue to treat this COPD and blood pressure. (2) Shortness of breath: Code(s): R06.02 - Shortness of breath Status: Acute Assessment and Plan: The patient has shortness of breath. Chest x-ray is clear. Possibly this is due to high LVEDP due to the hypertension. Possibly this is from exacerbation of COPD. She did get aggressive inhaler treatment and is better now. (3) HTN (hypertension): Code(s): I10 - Essential (primary) hypertension Status: Chronic Assessment and Plan: The patient has high blood pressure. perhaps this is leading to her shortness of breath. She is on hydralazine, diltiazem, and carvedilol. In the long run it would be good for her to be on an Carlos inhibitor or ARB but with the acute increase in her creatinine we should hold off on this for now. (4) COPD (chronic obstructive pulmonary disease): Code(s): J44.9 - Chronic obstructive pulmonary disease, unspecified Status: Acute Assessment and Plan: The patient has COPD. She is getting inhalers for this. (5) CAD (coronary artery disease): Code(s): I25.10 - Atherosclerotic heart disease of hughes coronary artery without angina pectoris Status: Acute Assessment and Plan: No chest pain (6) A-fib: Code(s): I48.91 - Unspecified atrial fibrillation Status: Chronic (7) Type 2 diabetes mellitus without complications: Code(s): E11.9 - Type 2 diabetes mellitus without complications Status: Chronic Assessment and Plan: the patient is on medications for this. History of Present Illness Reason for Consult Consult date: 04/21/21 Chief Complaint Chief complaint: chf exacerb,carlito on ckd History of Present Illness Narrative: Ronda is a very pleasant 75-year-old lady who has history of heart failure, COPD, chronic kidney disease stage 3, atrial fibrillation which is paroxysmal, coronary disease, congestive heart failure, hypertension, [place], diabetes, hyperlipidemia, mitral regurg says post valve repair, GERD, and COPD. She stop smoking 6 years ago. The patient says that she has become gradually more short of breath over the last few days. She came to the emergency room. She was evaluated. Chest x-ray was negative. She was given inhalers diuretics and oxygen. Today she feels much better and in fact is off of her oxygen. She did make a lot of urine yesterday, 2400cc. Patient does not have any swelling. She has no cough or fever. No chest pain. Her onset of shortness of breath was not sudden. Patient has have chronic kidney disease. She was sent to see a bronc breaker a few months ago and when she got there she had another 1 of the shortness of breath spells. They admitted her to the hospital. I am not sure what happened there but she was discharged without oxygen home. She never did see the bronc breaker. She has chronic anemia. She does not drink alcohol.
[2021-04-21 12:57] LABS: Creatine Kinase 55 U/L (30-135)
[2021-04-21 13:09] LABS: Complement C3 116 mg/dL (88-165)
[2021-04-21 13:41] LABS: Erythrocyte Sedimentation Rate 88 mm/hr (0-20)
[2021-04-21 16:40] LABS: Glucose Point of Care 240 mg/dl (65-105)
[2021-04-21 17:19] LABS: Creatinine Urine 47.5 mg/dL; Total Protein Urine Random 58 mg/dL; Ur Ttl Prot Creatinine Ratio 1.22 mg/mg (0-0.20)
[2021-04-21 17:25] LABS: Eosinophil Urine None Seen % (None Seen)
[2021-04-21 17:35] LABS: Sodium Urine Random 9 meq/L
--- NOTE | 2021-04-21 18:14 | PC.NURSE ---
This patient, Jennifer Schofield, was transferred to [facility] on 04/21/21 at 1815. Personal belongings sent with patient. Report given to ELANA Fraga. Appropriate documentation sent with patient.
--- NOTE | 2021-04-21 18:20 | PC.NURSE ---
Patient transferred from IMU to [address] [place] [address] at 1820 via bed.
[2021-04-21] MEDS: ROSUVASTATIN 5 MG TABLET PO (20:41)
[2021-04-21 22:04] LABS: Glucose Point of Care 230 mg/dl (65-105)
[2021-04-22] VITALS (19 sets, daily range): BP systolic 129–159; BP diastolic 55–63; PULSE 57–91; RESP 16–24; TEMP 35.8–36.4; O2SAT 92–97
[2021-04-22] MEDS: IPRATROPIUM BR 0.02% INH SOLN 0.5 MG/2.5 ML VIAL INHALATION ×4 (02:50→20:30)
[2021-04-22 06:00] LABS: Albumin Level 3.7 g/dL (3.5-5.1); Anion Gap 13 mmol/L (8-16); Blood Urea Nitrogen 51 mg/dL (7-17); Calcium 9.1 mg/dL (8.4-10.2); Carbon Dioxide 22 mmol/L (22-30); Chloride 100 mmol/L (98-107); Estimated CRCL calculation 13 ml/min; Estimated Glomerular Filt Rate 14; Glucose 227 mg/dL (65-105); Phosphorus 5.3 mg/dL (2.5-4.5); Potassium 3.8 mmol/L (3.4-5.0); Sodium 135 mmol/L (137-145)
[2021-04-22] MEDS: methylPREDNISolone SOD SUCC 125 MG VIAL 60 MG IV PUSH ×2 (06:24→15:49)
[2021-04-22 08:08] LABS: Glucose Point of Care 202 mg/dl (65-105)
--- NOTE | 2021-04-22 08:15 | PM.PNNEP ---
Progress Note: A&P Assessment and Plan (1) Acute on chronic renal failure: Code(s): N17.9 - Acute kidney failure, unspecified; N18.9 - Chronic kidney disease, unspecified Status: Acute Assessment and Plan: the patient has chronic kidney disease. This is most likely due to hypertension and diabetes. She does have some protein in the urine so may have a significant component of the diabetic kidney. The patient has acute kidney injury as well. Urine electrolytes are pre renal. Urine eosinophils are pending renal ultrasound shows medical renal disease etiology of this is probably pre renal azotemia. Will give a L of saline and see how she does (2) Shortness of breath: Code(s): R06.02 - Shortness of breath Status: Acute Assessment and Plan: shortness of breath is better After treating blood pressure and COPD. (3) HTN (hypertension): Code(s): I10 - Essential (primary) hypertension Status: Chronic Assessment and Plan: The patient has high blood pressure. This is improved. She is on carvedilol and hydralazine. (4) COPD (chronic obstructive pulmonary disease): Code(s): J44.9 - Chronic obstructive pulmonary disease, unspecified Status: Acute Assessment and Plan: The patient has COPD. She is getting inhalers And steroids for this. (5) CAD (coronary artery disease): Code(s): I25.10 - Atherosclerotic heart disease of [place] coronary artery without angina pectoris Status: Acute Assessment and Plan: No chest pain (6) A-fib: Code(s): I48.91 - Unspecified atrial fibrillation Status: Chronic Assessment and Plan: heart rate is well controlled (7) Type 2 diabetes mellitus without complications: Code(s): E11.9 - Type 2 diabetes mellitus without complications Status: Chronic Assessment and Plan: the patient is on medications for this. Subjective Date/time seen: 04/22/21 08:15 Interval history: Ronda is feeling about the same today. No shortness of breath. No swelling. Eating okay and drinking okay. Review of Systems Cardiovascular: Cardiovascular: Reports no additional cardiovascular complaints Respiratory: Respiratory: Reports no additional respiratory complaints Gastrointestinal: Gastrointestinal: Reports no additional gastrointestinal complaints Genitourinary: Genitourinary: Reports no additional female genitourinary complaints Exam Narrative: Exam Narrative: WDWN in NAD skin no rash head ncat lungs clear cor reg no rub abd BS+ nontender and soft ext no edema. Objective Data Vital Signs Vital Signs: Vital Signs - 24 hr 04/21/21 08:41 04/21/21 08:43 04/21/21 09:04 Temperature Pulse Rate 62 67 71 Respiratory Rate 18 18 Blood Pressure Pulse Oximetry 97 04/21/21 09:30 04/21/21 10:00 04/21/21 12:00 Temperature 36.1 C L Pulse Rate 61 59 L Respiratory Rate 18 Blood Pressure 137/66 Pulse Oximetry 92 96 04/21/21 14:00 04/21/21 14:45 04/21/21 14:53 Temperature Pulse Rate 59 L 64 61 Respiratory Rate 18 18 Blood Pressure Pulse Oximetry 04/21/21 16:00 04/21/21 18:20 04/21/21 20:16 Temperature 36.3 C L 36.7 C Pulse Rate 59 L 65 Respiratory Rate 18 16 Blood Pressure 138/60 135/54 L Pulse Oximetry 96 96 93 04/21/21 20:20 04/21/21 20:36 04/21/21 20:50 Temperature Pulse Rate 63 68 85 Respiratory Rate 18 20 Blood Pressure Pulse Oximetry 100 93 04/21/21 21:05 04/21/21 21:45 04/22/21 02:50 Temperature 36.1 C L Pulse Rate 63 63 60 Respiratory Rate 20 18 24 H Blood Pressure 142/60 H Pulse Oximetry 93 100 04/22/21 02:58 04/22/21 06:00 Temperature 35.8 C L Pulse Rate 61 62 Respiratory Rate 20 18 Blood Pressure 141/59 H Pulse Oximetry 96 Intake/Output Intake/Output: Intake & Output 04/19/21 04/20/21 04/21/21 04/22/21 23:59 23:59 23:59 23:59
[2021-04-22] MEDS: UMECLIDINIUM/VILANTEROL 62.5-25 MCG ELLIPTA 1 PUFF INHALATION (08:32)
[2021-04-22] MEDS: INSULIN ASPART (*BKC) 100 UNITS/ML SUB-Q ×3 (08:55→18:35)
[2021-04-22] MEDS: carvediloL 12.5 MG TABLET PO ×2 (09:06→20:22)
[2021-04-22] MEDS: hydrALAZINE HCL 25 MG TABLET PO ×2 (09:07→18:35)
[2021-04-22] MEDS: cycloSPORINE 0.4 ML OPHTH SOLUTION 1 DROP EACH EYE ×2 (09:07→20:23)
--- NOTE | 2021-04-22 10:07 | PM.PNCARD ---
Progress Note: A&P Assessment and Plan (1) Shortness of breath: Code(s): R06.02 - Shortness of breath Status: Acute Assessment and Plan: Secondary to COPD. No complaints of shortness of breath at this time and is not requiring oxygen at rest. (2) Acute exacerbation of CHF (congestive heart failure): Qualifiers: Heart failure type: unspecified Qualified Code(s): I50.9 - Heart failure, unspecified Code(s): I50.9 - Heart failure, unspecified Status: Acute Assessment and Plan: No evidence of CHF on chest XR, echo showed normal systolic dysfunction, mild MR of annuloplasty ring prosthetic mitral valve. Not exhibiting any clinical signs of heart failure at this time. (3) CAD (coronary artery disease): Code(s): I25.10 - Atherosclerotic heart disease of [place] coronary artery without angina pectoris Status: Acute Assessment and Plan: History of CABG x 1. No chest pain. On statin. Currently not on aspirin. She says that in the past she developed nosebleeds when she was on aspirin but she also says she was on Xarelto at that time. Discussed with her that ASA is recommended for her CAD. Will restart low dose ASA. (4) History of mitral valve repair: Code(s): Z98.890 - Other specified postprocedural states Status: Acute Assessment and Plan: Per 04/21/21 echo mild regurgitation of annuloplasty ring prosthetic mitral valve. (5) Acute on chronic renal failure: Code(s): N17.9 - Acute kidney failure, unspecified; N18.9 - Chronic kidney disease, unspecified Status: Acute Assessment and Plan: Chronic renal disease now with azotemia. Pre renal. Diuretics are being held for this reason. Nephrology following. Subjective Date/time seen: 04/22/21 10:07 Interval history: Cardiology follow-up for shortness of breath Date of service 04/22/2021: Patient feels well today and does not offer any complaints. She denies any shortness of breath. Reviewed echocardiogram results with her. Review of Systems Constitutional: Constitutional: Reports lethargy Eyes: Eyes: Reports no additional eye complaints ENT: Reports system reviewed and no additional complaints, except as documented Cardiovascular: Cardiovascular: Reports as per HPI and Reports dyspnea Respiratory: Respiratory: Denies dyspnea Gastrointestinal: Gastrointestinal: Reports no additional gastrointestinal complaints Musculoskeletal: Musculoskeletal: Reports no additional musculoskeletal complaints Integumentary/Breasts: Skin/Breast: Reports system reviewed and no additional complaints, except as docu Neurologic: Reports system reviewed and no additional complaints, except as documented Endocrine: Endocrine: Reports no additional endocrine complaints Hematologic/Lymphatic: Hematologic/Lymphatic: Reports no additional hematologic/lymphatic complaints Allergic/Immunologic: Allergic/Immunologic: Reports no additional allergic/immunologic complaints Exam Narrative: Exam Narrative: Pleasant elderly woman lying in bed. Alert and oriented. Const: General: comfortable and no acute distress HENMT: Head: normal to inspection Mouth: Yes moist mucous membranes Eyes: General: appearance normal, both eyes and all related structures Sclera: sclerae normal Pupils: Equal, round and reactive pupils present Neck: Neck: supple and no JVD Resp: Effort & Inspection: normal respiratory effort Auscultation: clear to auscultation bilaterally Cardio: Rate: regular rate Rhythm: regular rhythm Other: GI: GI Palp: Yes Soft to palpation Auscultation: normal bowel sounds Skin: General skin exam: normal color Neuro: Cranial nerves: Yes Equal, round and reactive pupils present Cognition (Neuro): normal cognition Extrem: General: normal to inspection, no edema and no pedal edema Psych: Mental Status: mental status grossly normal Affect: normal affect Objective
[2021-04-22] MEDS: PANTOPRAZOLE 40 MG TABLET PO (11:11)
--- NOTE | 2021-04-22 11:51 | PCNSR ---
On 04/22/21, the student,Zoya Frederick, provided care and completed [facility] documentation on this patient. I have reviewed the student's documentation and agree with the findings.
[2021-04-22 12:11] LABS: Glucose Point of Care 336 mg/dl (65-105)
--- NOTE | 2021-04-22 12:57 | P.CDI_ITS ---
CDI Query Clarification Request 1) - Acute exacerbation of CHF has been documented by hospitalists -Cardiology has documented, I do not find any physical exam or chest x-ray evidence of left-sided congestive heart failure. -History of chronic diastolic CHF has been documented -IV Lasix has been discontinued Please clarify if acute CHF has been: * Ruled in * Ruled out * Unable to determine 2) -COPD has been documented by hospitalists -Cardiology has documented that shortness of breath secondary to COPD -Dr Santos has documented possible COPD exacerbation in consultation note -Solu-Medrol 60mg IV q 8rs is ordered Please clarify if COPD exacerbation has been ruled in or ruled out. <Maggie Bishop RN - Last Filed: 04/22/21 13:06> Clarified Diagnosis (1) Acute exacerbation of CHF (congestive heart failure): Qualifiers: Heart failure type: unspecified Qualified Code(s): I50.9 - Heart failure, unspecified <Maggie Bishop RN - Last Filed: 04/22/21 13:06> Code(s): I50.9 - Heart failure, unspecified <Maggie Bishop RN - Last Filed: 04/22/21 13:06> Status: Acute <Maggie Bishop RN - Last Filed: 04/22/21 13:06> Assessment and Plan: STABLE RULED OUT <Felicita Mackey MD - Last Filed: 04/22/21 14:24> (2) COPD (chronic obstructive pulmonary disease): Code(s): J44.9 - Chronic obstructive pulmonary disease, unspecified <Maggie Bishop RN - Last Filed: 04/22/21 13:06> Status: Acute <Maggie Bishop RN - Last Filed: 04/22/21 13:06> Assessment and Plan: PATIENT IS ON ANORO NOT ACTIVELY WHEEZING WILL CONTINUE TO MONITOR <Felicita Mackey MD - Last Filed: 04/22/21 14:24>
[2021-04-22] MEDS: SODIUM CHLORIDE 0.9% IV 1,000 ML 75 ML IV CONT (13:55)
--- NOTE | 2021-04-22 14:24 | PM.IMPN ---
Progress Note: A&P Assessment and Plan (1) Acute exacerbation of CHF (congestive heart failure): Qualifiers: Heart failure type: unspecified Qualified Code(s): I50.9 - Heart failure, unspecified Code(s): I50.9 - Heart failure, unspecified Status: Acute Assessment and Plan: STABLE RULED OUT (2) COPD (chronic obstructive pulmonary disease): Code(s): J44.9 - Chronic obstructive pulmonary disease, unspecified Status: Acute Assessment and Plan: PATIENT IS ON ANORO NOT ACTIVELY WHEEZING WILL CONTINUE TO MONITOR (3) Acute kidney injury superimposed on chronic kidney disease: Code(s): N17.9 - Acute kidney failure, unspecified; N18.9 - Chronic kidney disease, unspecified Status: Acute Assessment and Plan: CONTINUE TO MONITOR CREATININE IS HIGHER TODAY FOLLOW NEPHROLOGY RECOMMENDATIONS (4) HTN (hypertension): Code(s): I10 - Essential (primary) hypertension Status: Chronic Assessment and Plan: CONTINUE TO MONITOR GOAL OF 130/80 (5) Type 2 diabetes mellitus without complications: Code(s): E11.9 - Type 2 diabetes mellitus without complications Status: Chronic Assessment and Plan: CONTINUE TO MONITOR PATIENT DOES NOT SEEM TO BE ON ANY MEDICATIONS DIET CONTROLLED QUARTERLY A1C ACCU-CHEKS AC AND HS INSULIN SLIDING SCALE NEEDED Subjective Date/time seen: 04/22/21 14:24 I FEEL WELL Interval history: Cardiology follow-up for shortness of breath Date of service 04/22/2021: Patient feels well today and does not offer any complaints. She denies any shortness of breath. Reviewed echocardiogram results with her. Review of Systems Review of Systems: All systems reviewed & are unremarkable except as noted in HPI and below Constitutional: Constitutional: Reports as per HPI and Reports no additional constitutional complaints Eyes: Eyes: Reports as per HPI and Reports no additional eye complaints ENT: Reports system reviewed and no additional complaints, except as documented and Reports Normal hearing present Cardiovascular: Cardiovascular: Reports no additional cardiovascular complaints Respiratory: Respiratory: Reports no additional respiratory complaints and Reports no additional respiratory complaints Gastrointestinal: Gastrointestinal: Reports as per HPI and Reports no additional gastrointestinal complaints Musculoskeletal: Musculoskeletal: Reports no additional musculoskeletal complaints Integumentary/Breasts: Skin/Breast: Reports system reviewed and no additional complaints, except as docu and Reports as per HPI Neurologic: Reports system reviewed and no additional complaints, except as documented, Reports as per HPI and Reports Normal hearing present Psychiatric: Psychiatric: Reports no additional psychiatric complaints and Reports as per HPI Endocrine: Endocrine: Reports no additional endocrine complaints Hematologic/Lymphatic: Hematologic/Lymphatic: Reports no additional hematologic/lymphatic complaints Allergic/Immunologic: Allergic/Immunologic: Reports no additional allergic/immunologic complaints Exam Const: General: cooperative, healthy appearing, comfortable, no acute distress, well developed, alert, awake and Physically active Nutritional Appearance: average body habitus and well nourished Orientation/consciousness: oriented to person, oriented to place, oriented to time and patient oriented x3 Limitations: no limitations HENMT: Head: normal to inspection, No palpable skull fracture present, normocephalic and atraumatic Ears: hearing grossly normal bilaterally and external ears normal General nose exam: Normal external nose present, Normal nares present and No nasal polyps present Face and sinus: normal facial exam Eyes: General: appearance normal, both eyes and all related structures Alignment and Position: alignment normal Periorbital: periorbital findings normal Eyelids: eyel
--- NOTE | 2021-04-22 15:01 | HOMEO2EVAL ---
Evaluation was performed at [facility] Home Oxygen Evaluation RC: Home Oxygen (O2) Evaluation Start: 04/21/21 15:59 Freq: ONCE Status: Active Protocol: RPE Activity Type Activity Date Activity User E-Sign Co-Sign Detail Recorded Client Recorded Date Recorded By Document 04/22/21 14:39 KRM [id number] 04/22/21 15:01 KRM Document 04/22/21 14:40 KRM [email or web address] 04/22/21 15:01 KRM Document 04/22/21 14:42 KRM [email or web address] 04/22/21 15:01 KRM Document 04/22/21 14:44 KRM [email or web address] 04/22/21 15:01 KRM 04/22/21 04/22/21 04/22/21 14:39 14:40 14:42 Home O2 Evaluation Test Phase Resting Exercise Exercise Oxygen Delivery Room Air Room Air Room Air Pulse Oximetry (90-100 %) 96 94 92 Pulse Rate (60-100 beats/min) 91 72 71 Activity Tolerance Good Good Ambulation Distance (feet) Treatment Charges O2 Evaluation - Inpatient 04/22/21 14:44 Home O2 Evaluation Test Phase Exercise Oxygen Delivery Room Air Pulse Oximetry (90-100 %) 94 Pulse Rate (60-100 beats/min) 73 Activity Tolerance Good Ambulation Distance (feet) 100 Treatment Charges
[2021-04-22] MEDS: ASPIRIN 81 MG CHEWABLE TABLET PO (15:49)
[2021-04-22 17:08] LABS: Glucose Point of Care 263 mg/dl (65-105)
[2021-04-22] MEDS: ROSUVASTATIN 5 MG TABLET PO (20:22)
[2021-04-22 21:20] LABS: Glucose Point of Care 246 mg/dl (65-105)
[2021-04-23] VITALS (12 sets, daily range): BP systolic 135–148; BP diastolic 53–62; PULSE 58–64; RESP 16–18; TEMP 36.2–36.6; O2SAT 97–98
[2021-04-23] MEDS: IPRATROPIUM BR 0.02% INH SOLN 0.5 MG/2.5 ML VIAL INHALATION ×3 (01:56→14:27)
[2021-04-23 06:58] LABS: Glucose Point of Care 233 mg/dl (65-105)
[2021-04-23] MEDS: INSULIN ASPART (*BKC) 100 UNITS/ML SUB-Q ×3 (07:53→17:12)
[2021-04-23] MEDS: ASPIRIN 81 MG CHEWABLE TABLET PO (08:35)
[2021-04-23] MEDS: hydrALAZINE HCL 25 MG TABLET PO ×2 (08:35→17:09)
[2021-04-23] MEDS: carvediloL 12.5 MG TABLET PO ×2 (08:36→20:38)
[2021-04-23] MEDS: cycloSPORINE 0.4 ML OPHTH SOLUTION 1 DROP EACH EYE ×2 (08:37→20:40)
[2021-04-23 09:18] LABS: Hematocrit 29.6 % (37.0-47.0); Hemoglobin 9.6 g/dL (12.0-15.0); Mean Corpuscular HGB Conc 32.4 g/dl (32-36); Mean Corpuscular Hemoglobin 28.5 pg (26-34); Mean Corpuscular Volume 87.8 fl (80-100); Mean Platelet Volume 10.6 fl (7.4-10.4); Platelet Count Result 263 k/mm3 (150-375); Red Blood Count 3.37 M/mm3 (4.2-5.4); White Blood Count 14.1 K/mm3 (4.5-10.0)
[2021-04-23 09:27] LABS: Anion Gap 14 mmol/L (8-16); Blood Urea Nitrogen 59 mg/dL (7-17); Calcium 8.8 mg/dL (8.4-10.2); Carbon Dioxide 20 mmol/L (22-30); Chloride 94 mmol/L (98-107); Estimated CRCL calculation 13 ml/min; Estimated Glomerular Filt Rate 15; Glucose 312 mg/dL (65-105); Sodium 128 mmol/L (137-145)
[2021-04-23] MEDS: UMECLIDINIUM/VILANTEROL 62.5-25 MCG ELLIPTA 1 PUFF INHALATION (09:28)
[2021-04-23] MEDS: predniSONE 20 MG TABLET 40 MG PO (09:46)
[2021-04-23 12:01] LABS: Glucose Point of Care 272 mg/dl (65-105)
--- NOTE | 2021-04-23 15:48 | PM.IMPN ---
Progress Note: A&P Assessment and Plan (1) Acute on chronic renal failure: Qualifiers: Acute renal failure type: unspecified Chronic kidney disease stage: stage 3 (moderate) Chronic kidney disease stage 3 subtype: unspecified whether 3a or 3b Qualified Code(s): N17.9 - Acute kidney failure, unspecified; N18.30 - Chronic kidney disease, stage 3 unspecified Code(s): N17.9 - Acute kidney failure, unspecified; N18.9 - Chronic kidney disease, unspecified Status: Acute Assessment and Plan: below by Nephrology while inpatient due to baseline creatinine as per review of records 0.6 Highest creatinine during this admission 3.2; now down to 2.9 in improving will need outpatient follow-up with Nephrology as per recommendations from Nephrology and Cardiology, to hold off on p.o. Lasix at home patient being recommended by nephrology to take p.o. Lasix on p.r.n. basis if swelling develops (2) Acute exacerbation of CHF (congestive heart failure): Qualifiers: Heart failure type: unspecified Qualified Code(s): I50.9 - Heart failure, unspecified Code(s): I50.9 - Heart failure, unspecified Status: Acute Assessment and Plan: was treated with IV Lasix during admission echo was done on 04/21, as follows: 1. Complete two-dimensional, color flow and Doppler transthoracic echocardiogram is performed. 2. Left ventricular chamber dimension is normal. 3. Left ventricular systolic function is normal, estimated at 60-65%. 4. 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 5. Mild residual MR after mitral repair. 6. Biatrial dilation. 7. Pulmonary hypertension. (3) Acute kidney injury superimposed on chronic kidney disease: Code(s): N17.9 - Acute kidney failure, unspecified; N18.9 - Chronic kidney disease, unspecified Status: Acute Assessment and Plan: please see above (4) CAD (coronary artery disease): Qualifiers: Coronary Disease-Associated Artery/Lesion type: [place] artery [place] vs. transplanted heart: [place] heart Associated angina: without angina Qualified Code(s): I25.10 - Atherosclerotic heart disease of [place] coronary artery without angina pectoris Code(s): I25.10 - Atherosclerotic heart disease of [place] coronary artery without angina pectoris Status: Acute Assessment and Plan: stable (5) History of mitral valve repair: Code(s): Z98.890 - Other specified postprocedural states Status: Acute Assessment and Plan: stable (6) COPD (chronic obstructive pulmonary disease): Code(s): J44.9 - Chronic obstructive pulmonary disease, unspecified Status: Acute Assessment and Plan: was started on p.o. prednisone due to concerns for COPD exacerbation. However she will be discharged home without steroids given elevated blood sugar readings. her saturations have now been stable and she is not using any oxygen, no wheezing noted as well. (7) HLD (hyperlipidemia): Qualifiers: Hyperlipidemia type: mixed hyperlipidemia Qualified Code(s): E78.2 - Mixed hyperlipidemia Code(s): E78.5 - Hyperlipidemia, unspecified Status: Chronic (8) HTN (hypertension): Qualifiers: Hypertension type: unspecified Qualified Code(s): I10 - Essential (primary) hypertension Code(s): I10 - Essential (primary) hypertension Status: Chronic (9) Type 2 diabetes mellitus with diabetic nephropathy, with long-term current use of insulin: Code(s): E11.21 - Type 2 diabetes mellitus with diabetic nephropathy; Z79.4 - [facility] (current) use of insulin Status: Acute (10) A-fib: Qualifiers: Atrial fibrillation type: persistent (not longstanding) Qualified Code(s): I48.19 - Other persistent atrial fibrillation Code(s): I48.91 - Unspecified atrial fibrillation Status: Chronic Assessment and Plan:
[2021-04-23 17:24] LABS: Glucose Point of Care 400 mg/dl (65-105)
--- NOTE | 2021-04-23 17:41 | PM.PNNEP ---
Progress Note: A&P Assessment and Plan (1) Acute on chronic renal failure: Code(s): N17.9 - Acute kidney failure, unspecified; N18.9 - Chronic kidney disease, unspecified Status: Acute Assessment and Plan: the patient has chronic kidney disease. This is most likely due to hypertension and diabetes. She does have some protein in the urine so may have a significant component of the diabetic kidney. The patient has acute kidney injury as well. Urine electrolytes are pre renal. Urine eosinophils are pending renal ultrasound shows medical renal disease etiology of this is probably pre renal azotemia. I ordered 1L of saline but unfortunately the patient refused. I do not know what her baseline creatinine is. We have not received records from Dr. Solis yet. I asked the staff to make sure that the request was sent. Patient wants to be discharged. Unfortunately we do not know if this is acute or not. Will order a renal scan to see if there is uptake without excretion. Continue to hold diuretics for now. The patient still has no sign of volume overload. Will check a chest x-ray in the morning to be sure. Will try again to get records from PCP. I do not feel comfortable discharging her now because we do not know if her kidney function will get worse. We also do not know if we should send her home on diuretics or not. If she is pre renal then diuretics will make the kidneys worse. If she is not pre renal and we do not send her home on diuretic she might go back in to volume overload. Will reassess in the morning after all those tests. (2) Shortness of breath: Code(s): R06.02 - Shortness of breath Status: Acute Assessment and Plan: shortness of breath is better After treating blood pressure and COPD. (3) HTN (hypertension): Code(s): I10 - Essential (primary) hypertension Status: Chronic Assessment and Plan: The patient has high blood pressure. This is improved. She is on carvedilol and hydralazine. (4) COPD (chronic obstructive pulmonary disease): Code(s): J44.9 - Chronic obstructive pulmonary disease, unspecified Status: Acute Assessment and Plan: The patient has COPD. Pulmonary artery pressure is high. She is getting inhalers And steroids for this. (5) CAD (coronary artery disease): Code(s): I25.10 - Atherosclerotic heart disease of [place] coronary artery without angina pectoris Status: Acute Assessment and Plan: No chest pain Echo short normal LV function but pulmonary hypertension with a pulmonary artery pressure of 66.. (6) A-fib: Code(s): I48.91 - Unspecified atrial fibrillation Status: Chronic Assessment and Plan: heart rate is well controlled (7) Type 2 diabetes mellitus without complications: Code(s): E11.9 - Type 2 diabetes mellitus without complications Status: Chronic Assessment and Plan: the patient is on medications for this. Subjective Date/time seen: 04/23/21 17:41 Interval history: Ronda is feeling about the same today. No shortness of breath. No swelling. Eating okay and drinking okay. Can pain to go home. She feels well and is tired of being in the hospital. Exam Narrative: Exam Narrative: WDWN in NAD skin no rash head ncat lungs clear cor reg no rub abd BS+ nontender and soft ext no edema or cyanosis. Objective Data Vital Signs Vital Signs: Vital Signs - 24 hr 04/22/21 20:20 04/22/21 20:22 04/22/21 20:32 Temperature Pulse Rate 61 66 64 Respiratory Rate 20 18 Blood Pressure Pulse Oximetry 97 04/22/21 20:33 04/22/21 20:42 04/22/21 21:29 Temperature 36.4 C Pulse Rate 62 61 Respiratory Rate 16 20 Blood Pressure 159/63 H Pulse Oximetry 97 97 04/23/21 01:57 04/23/21 02:07 04/23/21 05:52 Temperature 36.6 C Pulse Rate 60 59 L 59 L
[2021-04-23] MEDS: ROSUVASTATIN 5 MG TABLET PO (20:38)
[2021-04-23] MEDS: LORazepam (*CRX) 0.5 MG TABLET PO (22:05)
[2021-04-24 04:10] LABS: Glucose Point of Care 228 mg/dl (65-105)
[2021-04-24 06:00] VITALS: BP 148/56; PULSE 56; RESP 18; TEMP 36.2; O2SAT 95
[2021-04-24 06:35] LABS: Albumin Level 3.4 g/dL (3.5-5.1); Anion Gap 12 mmol/L (8-16); Blood Urea Nitrogen 66 mg/dL (7-17); Calcium 8.6 mg/dL (8.4-10.2); Carbon Dioxide 22 mmol/L (22-30); Chloride 97 mmol/L (98-107); Estimated CRCL calculation 14 ml/min; Estimated Glomerular Filt Rate 16; Glucose 231 mg/dL (65-105); Phosphorus 5.5 mg/dL (2.5-4.5); Potassium 3.9 mmol/L (3.4-5.0); Sodium 131 mmol/L (137-145)
[2021-04-24] MEDS: IPRATROPIUM BR 0.02% INH SOLN 0.5 MG/2.5 ML VIAL INHALATION (07:23)
[2021-04-24 07:25] VITALS: PULSE 56; RESP 18
[2021-04-24 07:51] LABS: Glucose Point of Care 242 mg/dl (65-105)
[2021-04-24 08:39] VITALS: PULSE 60
[2021-04-24] MEDS: hydrALAZINE HCL 25 MG TABLET PO (08:39)
[2021-04-24] MEDS: PANTOPRAZOLE 40 MG TABLET PO (08:39)
[2021-04-24] MEDS: ASPIRIN 81 MG CHEWABLE TABLET PO (08:39)
[2021-04-24] MEDS: predniSONE 20 MG TABLET 40 MG PO (08:39)
[2021-04-24] MEDS: carvediloL 12.5 MG TABLET PO (08:39)
[2021-04-24] MEDS: INSULIN ASPART (*BKC) 100 UNITS/ML SUB-Q (08:40)
[2021-04-24] MEDS: cycloSPORINE 0.4 ML OPHTH SOLUTION 1 DROP EACH EYE (08:41)
--- NOTE | 2021-04-24 09:59 | PM.PNCARD ---
Progress Note: A&P Assessment and Plan (1) Shortness of breath: Code(s): R06.02 - Shortness of breath Status: Acute Assessment and Plan: Secondary to COPD. No complaints of shortness of breath at this time and is not requiring oxygen at rest. (2) Acute exacerbation of CHF (congestive heart failure): Qualifiers: Heart failure type: unspecified Qualified Code(s): I50.9 - Heart failure, unspecified Code(s): I50.9 - Heart failure, unspecified Status: Acute Assessment and Plan: No evidence of CHF on chest XR, echo showed normal systolic dysfunction, mild MR of annuloplasty ring prosthetic mitral valve. Not exhibiting any clinical signs of heart failure at this time. Diuretics remain on hold due to her JEANETH. Will follow-up in a short interval as an outpatient to assess volume status/need for diuresis. (3) CAD (coronary artery disease): Code(s): I25.10 - Atherosclerotic heart disease of [place] coronary artery without angina pectoris Status: Acute Assessment and Plan: History of CABG x 1. No chest pain. On statin. Currently not on aspirin. She says that in the past she developed nosebleeds when she was on aspirin but she also says she was on Xarelto at that time. Discussed with her that ASA is recommended for her CAD. Will restart low dose ASA. (4) History of mitral valve repair: Code(s): Z98.890 - Other specified postprocedural states Status: Acute Assessment and Plan: Per 04/21/21 echo mild regurgitation of annuloplasty ring prosthetic mitral valve. (5) Acute on chronic renal failure: Code(s): N17.9 - Acute kidney failure, unspecified; N18.9 - Chronic kidney disease, unspecified Status: Acute Assessment and Plan: Chronic renal disease now with azotemia. Pre renal. Diuretics are being held for this reason. Nephrology following. Subjective Date/time seen: 04/24/21 09:59 Interval history: Cardiology follow-up for shortness of breath Date of service 04/22/2021: Patient feels well today and does not offer any complaints. She denies any shortness of breath. Reviewed echocardiogram results with her. Review of Systems Constitutional: Constitutional: Reports lethargy Eyes: Eyes: Reports no additional eye complaints ENT: Reports system reviewed and no additional complaints, except as documented Cardiovascular: Cardiovascular: Reports as per HPI and Denies dyspnea Respiratory: Respiratory: Denies dyspnea Gastrointestinal: Gastrointestinal: Reports no additional gastrointestinal complaints Musculoskeletal: Musculoskeletal: Reports no additional musculoskeletal complaints Integumentary/Breasts: Skin/Breast: Reports system reviewed and no additional complaints, except as docu Neurologic: Reports system reviewed and no additional complaints, except as documented Endocrine: Endocrine: Reports no additional endocrine complaints Hematologic/Lymphatic: Hematologic/Lymphatic: Reports no additional hematologic/lymphatic complaints Allergic/Immunologic: Allergic/Immunologic: Reports no additional allergic/immunologic complaints Exam Narrative: Exam Narrative: Pleasant elderly woman lying in bed. Alert and oriented. Const: General: comfortable and no acute distress HENMT: Head: normal to inspection Mouth: Yes moist mucous membranes Eyes: General: appearance normal, both eyes and all related structures Sclera: sclerae normal Pupils: Equal, round and reactive pupils present Neck: Neck: supple and no JVD Resp: Effort & Inspection: normal respiratory effort Auscultation: clear to auscultation bilaterally Other: Cardio: Rate: regular rate Rhythm: regular rhythm Other: GI: Auscultation: normal bowel sounds Skin: General skin exam: normal color Neuro: Cranial nerves: Yes Equal, round and reactive pupils present Cognition (Neuro): normal cognition Extrem: General: normal to inspection,
[2021-04-24 13:56] LABS: Glucose Point of Care 422 mg/dl (65-105)
[2021-04-24 14:00] VITALS: BP 135/58; PULSE 55; RESP 20; TEMP 36.6; O2SAT 97
--- NOTE | 2021-04-24 14:07 | PM.PNNEP ---
Progress Note: A&P Assessment and Plan (1) Acute on chronic renal failure: Code(s): N17.9 - Acute kidney failure, unspecified; N18.9 - Chronic kidney disease, unspecified Status: Acute Assessment and Plan: the patient has chronic kidney disease. This is most likely due to hypertension and diabetes. She does have some protein in the urine so may have a significant component of the diabetic kidney. We reached out to Dr. Solis's office and her creatinine is 2.6 at baseline. The patient has acute kidney injury as well. Urine electrolytes are pre renal. Urine eosinophils are pending renal ultrasound shows medical renal disease Renal scan shows slow uptake in slow excretion consistent with chronic kidney disease only. Chest x-ray shows no fluid (2) Shortness of breath: Code(s): R06.02 - Shortness of breath Status: Acute Assessment and Plan: shortness of breath is better After treating blood pressure and COPD. (3) HTN (hypertension): Code(s): I10 - Essential (primary) hypertension Status: Chronic Assessment and Plan: The patient has high blood pressure. This is improved. She is on carvedilol and hydralazine. (4) COPD (chronic obstructive pulmonary disease): Code(s): J44.9 - Chronic obstructive pulmonary disease, unspecified Status: Acute Assessment and Plan: The patient has COPD. Pulmonary artery pressure is high. She is getting inhalers And steroids for this. (5) CAD (coronary artery disease): Code(s): I25.10 - Atherosclerotic heart disease of [place] coronary artery without angina pectoris Status: Acute Assessment and Plan: No chest pain Echo short normal LV function but pulmonary hypertension with a pulmonary artery pressure of 66. echocardiogram shows normal LV function. Dr. Giles is office has seen the patient and feels that she does not need Lasix at all. I asked her to keep Lasix on hand and weigh herself every day and if she starts gaining weight she can start the Lasix but she should call if she has to do this. (6) A-fib: Code(s): I48.91 - Unspecified atrial fibrillation Status: Chronic Assessment and Plan: heart rate is well controlled (7) Type 2 diabetes mellitus without complications: Code(s): E11.9 - Type 2 diabetes mellitus without complications Status: Chronic Assessment and Plan: the patient is on medications for this. Subjective Date/time seen: 04/24/21 14:07 Interval history: Ronda is feeling about the same today. No chest pain or shortness of breath. Review of Systems Cardiovascular: Cardiovascular: Reports no additional cardiovascular complaints Respiratory: Respiratory: Reports no additional respiratory complaints Gastrointestinal: Gastrointestinal: Reports no additional gastrointestinal complaints Genitourinary: Genitourinary: Reports no additional female genitourinary complaints Exam Narrative: Exam Narrative: WDWN in NAD skin no rash head ncat lungs clear cor reg no rub abd BS+ nontender and soft ext no edema. Objective Data Vital Signs Vital Signs: Vital Signs - 24 hr 04/23/21 14:27 04/23/21 14:34 04/23/21 20:00 Temperature 36.5 C Pulse Rate 60 63 58 L Respiratory Rate 18 18 18 Blood Pressure 148/62 H Pulse Oximetry 97 04/23/21 20:38 04/23/21 20:40 04/24/21 06:00 Temperature 36.2 C L Pulse Rate 60 60 56 L Respiratory Rate 18 18 Blood Pressure 148/56 H Pulse Oximetry 97 95 04/24/21 07:25 04/24/21 08:39 Temperature Pulse Rate 56 L 60 Respiratory Rate 18 Blood Pressure Pulse Oximetry Intake/Output Intake/Output: Intake & Output 04/21/21 04/22/21 04/23/21 04/24/21 23:59 23:59 23:59 23:59 Intake Total 2320 2430 2009 860 Output Total 1800 Balance 520 2430 2009 860 Meds/Results Medications: Active Medications Gen
[2021-04-24] MEDS: INSULIN ASPART (*BKC) 100 UNITS/ML 8 UNITS SUB-Q (14:09)
--- NOTE | 2021-04-24 14:33 | PM.DS ---
DS: Admitting Diagnosis Admitting Diagnosis Admitting Diagnosis: acute hypoxic respiratory DS: Discharge Diagnosis Discharge Diagnosis (1) Acute on chronic renal failure: Qualifiers: Acute renal failure type: unspecified Chronic kidney disease stage: stage 3 (moderate) Chronic kidney disease stage 3 subtype: unspecified whether 3a or 3b Qualified Code(s): N17.9 - Acute kidney failure, unspecified; N18.30 - Chronic kidney disease, stage 3 unspecified Code(s): N17.9 - Acute kidney failure, unspecified; N18.9 - Chronic kidney disease, unspecified Status: Acute Assessment and Plan: below by Nephrology while inpatient due to baseline creatinine as per review of records 0.6 Highest creatinine during this admission 3.2; now down to 2.9 in improving will need outpatient follow-up with Nephrology as per recommendations from Nephrology and Cardiology, to hold off on p.o. Lasix at home patient being recommended by nephrology to take p.o. Lasix on p.r.n. basis if swelling develops (2) Acute exacerbation of CHF (congestive heart failure): Qualifiers: Heart failure type: unspecified Qualified Code(s): I50.9 - Heart failure, unspecified Code(s): I50.9 - Heart failure, unspecified Status: Acute Assessment and Plan: was treated with IV Lasix during admission echo was done on 04/21, as follows: 1. Complete two-dimensional, color flow and Doppler transthoracic echocardiogram is performed. 2. Left ventricular chamber dimension is normal. 3. Left ventricular systolic function is normal, estimated at 60-65%. 4. 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 5. Mild residual MR after mitral repair. 6. Biatrial dilation. 7. Pulmonary hypertension. (3) Acute kidney injury superimposed on chronic kidney disease: Code(s): N17.9 - Acute kidney failure, unspecified; N18.9 - Chronic kidney disease, unspecified Status: Acute Assessment and Plan: please see above (4) CAD (coronary artery disease): Qualifiers: Coronary Disease-Associated Artery/Lesion type: [place] artery [place] vs. transplanted heart: [place] heart Associated angina: without angina Qualified Code(s): I25.10 - Atherosclerotic heart disease of [place] coronary artery without angina pectoris Code(s): I25.10 - Atherosclerotic heart disease of [place] coronary artery without angina pectoris Status: Acute Assessment and Plan: stable (5) History of mitral valve repair: Code(s): Z98.890 - Other specified postprocedural states Status: Acute Assessment and Plan: stable (6) COPD (chronic obstructive pulmonary disease): Code(s): J44.9 - Chronic obstructive pulmonary disease, unspecified Status: Acute Assessment and Plan: was started on p.o. prednisone due to concerns for COPD exacerbation. However she will be discharged home without steroids given elevated blood sugar readings. her saturations have now been stable and she is not using any oxygen, no wheezing noted as well. (7) HLD (hyperlipidemia): Qualifiers: Hyperlipidemia type: mixed hyperlipidemia Qualified Code(s): E78.2 - Mixed hyperlipidemia Code(s): E78.5 - Hyperlipidemia, unspecified Status: Chronic (8) HTN (hypertension): Qualifiers: Hypertension type: unspecified Qualified Code(s): I10 - Essential (primary) hypertension Code(s): I10 - Essential (primary) hypertension Status: Chronic (9) Type 2 diabetes mellitus with diabetic nephropathy, with long-term current use of insulin: Code(s): E11.21 - Type 2 diabetes mellitus with diabetic nephropathy; Z79.4 - [facility] (current) use of insulin Status: Acute (10) A-fib: Qualifiers: Atrial fibrillation type: persistent (not longstanding) Qualified Code(s): I48.19 - Other persistent atrial fibrillation
== END 2021-04-24 15:45 | disposition home or self-care (01) | DRG 292 ==
LOC: ANHED 10:33 → ANH3MEDSUR 04-22 09:12 → ANHIMU 05-01 11:28
PROVIDERS: Internal Medicine Nephrology; Nurse Practitioner; Admitting Provider Internal Medicine; Emergency Provider Emergency Medicine; PCP Student in an Organized Health Care Education/Training Program; Visit Provider Internal Medicine
DX: I13.0 Hypertensive heart and chronic kidney disease with heart failure and stage 1 through stage 4 chronic kidney disease, or unspecified chronic kidney disease (principal); N17.9 Acute kidney failure, unspecified; E87.1 Hypo-osmolality and hyponatremia; I50.32 Chronic diastolic (congestive) heart failure; N18.30 Chronic kidney disease, stage 3 unspecified; E11.22 Type 2 diabetes mellitus with diabetic chronic kidney disease; I25.10 Atherosclerotic heart disease of native coronary artery without angina pectoris; E78.2 Mixed hyperlipidemia; J44.9 Chronic obstructive pulmonary disease, unspecified; K21.9 Gastro-esophageal reflux disease without esophagitis; I48.91 Unspecified atrial fibrillation; D72.829 Elevated white blood cell count, unspecified; E83.39 Other disorders of phosphorus metabolism; I25.2 Old myocardial infarction; Z79.899 Other long term (current) drug therapy; Z87.891 Personal history of nicotine dependence; Z95.1 Presence of aortocoronary bypass graft; Z98.890 Other specified postprocedural states
CPT/HCPCS: 36415; 71046; 76775; 78707; 80048; 80053; 80069; 82550; 82570; 82948; 83735; 83880; 84156; 84300; 84439; 84443; 84480; 84484; 85025; 85027; 85610; 85652; 85730; 85999; 86160; 93005; 93306; 94618; 94640; 96374; 99285; A9270; A9562; J1815; J1940; J2930; J7030; J7512

== ENCOUNTER 2021-05-07 00:42 | Inpatient (IN) | payer MEDICARE, SELFPAY ==
[2021-05-07] VITALS (55 sets, daily range): BP systolic 112–201; BP diastolic 47–101; PULSE 59–85; RESP 16–42; TEMP 36.1–37; O2SAT 91–100; BMI 26.0
--- NOTE | ~2021-05-07 | XR_ITS ---
EXAMINATION: XR chest 1V portable DATE: 05/07/2021 01:39 INDICATION: Shortness of breath TECHNIQUE: frontal view of the chest was obtained. COMPARISON: Chest radiograph dated 04/23/2021 FINDINGS: Interval development of a diffuse increased interstitial pattern with multiple peripheral Fox B-li jean consistent with pulmonary edema. No pleural effusion or pneumothorax. Moderate cardiomegaly with change of prior mitral valve repair. Surgical clips at the right axilla. IMPRESSION: 1. Likely congestive heart failure with cardiomegaly and mild to moderate pulmonary edema. Differenti al includes less likely pneumonia. Reviewed, dictated and finalized at location A. IMPRESSION: 1. Likely congestive heart failure with cardiomegaly and mild to moderate pulmo nary edema. Differential includes less likely pneumonia.
--- NOTE | ~2021-05-07 | XR_ITS ---
EXAMINATION: XR chest 2V DATE: 05/09/2021 10:29 INDICATION: Congestive heart failure and shortness of breath TECHNIQUE: Frontal and lateral views of the chest are obtained COMPARISON: 05/07/2021 FINDINGS: A mild interstitial pattern persists but has improved. Cardiomegaly is noted. Changes of ca rdiac valve repair are noted. There are small pleural effusions. Minimal airspace opacities are prese nt in the lung bases. Surgical clips project over the right upper outer thorax. There is moderate tho racic spondylosis. IMPRESSION: 1. Cardiomegaly with improving pulmonary edema. 2. Small pleural effusions with likely passive atelectasis of the lung bases. Reviewed, dictated and finalized at location B.
--- NOTE | 2021-05-07 00:59 | ECG_ITS ---
Measurements Intervals [place] Rate: 82 P: 76 [place]: 179 QRS: -8 QRSD: 138 T: 76 QT: 365 QTc: 427 Interpretive Statements SINUS RHYTHM VENTRICULAR PREMATURE COMPLEX INTRAVENTRICULAR CONDUCTION DELAY BORDERLINE R WAVE PROGRESSION, ANTERIOR LEADS BORDERLINE ST-T WAVE ABNORMALITY- HIGH LATERAL LEADS BASELINE ARTIFACT- II, AVR, AVL, AVF, V1-V6 BORDERLINE ECG Electronically Signed On 05-07-2021 6:25:19 CDT by Clyde Rowell D.O.
[2021-05-07] MEDS: ALBUTEROL SULFATE NEB 2.5 MG/0.5 ML INH 5 MG INHALATION ×3 (01:21→22:09)
[2021-05-07] MEDS: IPRATROPIUM BR 0.02% INH SOLN 0.5 MG/2.5 ML VIAL INHALATION ×3 (01:21→22:09)
--- NOTE | 2021-05-07 01:23 | PC.NURSE ---
Respiratory to room for treatment at this time.
--- NOTE | 2021-05-07 01:29 | ED.GENADULT ---
HPI - General Adult General Chief complaint: Shortness of Breath/Dyspnea Stated complaint: sob, difficulty breathing Time Seen by Provider: 05/07/21 00:48 History of Present Illness HPI narrative: Patient 75-year-old female presents the emergency department with chief complaint of shortness of breath. Patient reports she was recently admitted to the hospital for both COPD and CHF exacerbation the patient has had increasing shortness of breath at home and reported that she was discharged from the hospital on the eighth at that time she was not continued on home oxygen and reports that she has had continual shortness of breath. Patient states that today her oxygen levels were in the 80s and feels as though she cannot get a good deep breath. Patient reports has had a dry cough with this denies fever denies vomiting denies diarrhea denies abdominal pain Related Data Home Medications Medication Instructions Recorded Confirmed cyclosporine 0.05 % eye drops 1 drop EACH EYE Q12H 10/24/19 04/20/21 carvedilol 12.5 mg PO BID 03/09/21 04/20/21 hydralazine 25 mg PO BID 03/09/21 04/20/21 potassium chloride 20 meq PO DAILY 03/09/21 04/20/21 rosuvastatin 5 mg PO HS 03/09/21 04/20/21 Allergies Allergy/AdvReac Type Severity Reaction Status Date / Time amiodarone Allergy Severe Unresponsiv Verified 05/07/21 01:01 e Meljqna-Ztc-Ogk Reductase Allergy Severe Muscle Pain Verified 05/07/21 01:01 Inhibitor ciprofloxacin Allergy Mild Unknown Verified 05/07/21 01:01 cephalexin Allergy Unknown Rash Verified 05/07/21 01:01 nitrofurantoin Allergy Unknown hand Verified 05/07/21 01:01 swelling Review of Systems Review of Systems: Narrative: A 10 system review of systems was completed on the patient and is negative except for what is stated in the HPI. Nursing and ancillary documentation was reviewed. 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 CHF (congestive heart failure) Chronic diastolic CHF (congestive heart failure) Chronic kidney disease, stage III (moderate) COPD (chronic obstructive pulmonary disease) Diabetes mellitus GERD (gastroesophageal reflux disease) History of ventricular tachycardia HLD (hyperlipidemia) HTN (hypertension) Hypertensive heart disease with heart failure Mitral valve regurgitation Mixed hyperlipidemia Myocardial infarction Pneumonia Seasonal allergies Shortness of breath 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, with long-term current use of insulin Type 2 diabetes mellitus without complications UTI (urinary tract infection) Surgical History Surgical History H/O cardiac catheterization H/O maze procedure H/O mitral valve repair With a ring H/O: hysterectomy History of mitral valve repair Family History Family History Mother Family history of diabetes mellitus in first degree relative Family history of lung cancer Father Family history of coronary artery disease Hypertension Sibling Family history of diabetes mellitus in first degree relative Social History Social History Social History: She has with her for over 50 years. 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 She desires to be full code. She smoked a pack to half pack a cigarettes per day for 40 years quit March 14, 2014. no alcohol or illicit drugs. 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 She has 2 children.they have 2 children Smoking packs per day: 0.5 Smoking cigarettes per day: 10.0 Years smoked: 40 Smoking pack-years: 20.00 Smoking status: Former smoker To
[2021-05-07 01:47] LABS: Alanine Aminotransferase 9 U/L (4-35); Albumin Level 3.8 g/dL (3.5-5.1); Alkaline Phosphatase 82 U/L (38-126); Anion Gap 9 mmol/L (8-16); Aspartate Amino Transferase 13 U/L (14-36); Basophils Absolute Auto 0.1 K/mm3 (0.0-0.1); Basophils Percent Auto 0.3 % (0.2-1.2); Bilirubin,Total 0.9 mg/dL (0.2-1.3); Blood Urea Nitrogen 23 mg/dL (7-17); Calcium 9.2 mg/dL (8.4-10.2); Carbon Dioxide 22 mmol/L (22-30); Chloride 107 mmol/L (98-107); Eosinophils Absolute Auto 0.3 K/mm3 (0-0.3); Eosinophils Percent Auto 2.1 % (0-4.4); Estimated CRCL calculation 17 ml/min; Estimated Glomerular Filt Rate 19; Glucose 173 mg/dL (65-110); Hematocrit 31.9 % (37.0-47.0); Hemoglobin 9.9 g/dL (12.0-15.0); Immature Granulocyte Absolute 0.07 K/mm3 (0.00-0.031); Immature Granulocyte Percent A 0.4 % (0-0.5); Lymphocytes Absolute Auto 1.14 K/mm3 (0.9-3.2); Lymphocytes Percent Auto 7.1 % (18.3-44.2); Mean Corpuscular Hemoglobin 28.3 pg (26-34); Mean Corpuscular Volume 91.1 fl (80-100); Mean Platelet Volume 10.7 fl (7.4-10.4); Monocytes Percent Auto 6.3 % (2.6-8.5); Neutrophils Absolute Auto 13.4 K/mm3 (1.3-6.7); Neutrophils Percent Auto 83.8 % (45.5-73.1); Platelet Count Result 237 k/mm3 (150-375); Red Cell Distribution Width 13.6 % (11.5-14.5); Sodium 138 mmol/L (137-145)
[2021-05-07 01:50] LABS: INR 0.9; Prothrombin Time 12.3 Seconds (11.1-14.7)
[2021-05-07 01:51] LABS: Partial Thromboplastin Time 23.8 SECONDS (22.3-36.8)
[2021-05-07] MEDS: methylPREDNISolone SOD SUCC 125 MG VIAL IV PUSH (01:54)
[2021-05-07 01:56] LABS: NT Pro B Type Natriuretic Pept 6900 pg/mL (5-100)
[2021-05-07 01:59] LABS: Troponin I < 0.012 ng/mL (0.000-0.034)
[2021-05-07 02:15] LABS: Add Urine Microscopic? YES; Appearance Urine Clear (Clear); Bilirubin Urine Negative (Negative); Blood Urine Negative (Negative); Color Urine Yellow (Yellow); Glucose Urine UA 1+ mg/dL (Negative); Ketones Urine Negative (Negative); Leukocyte Esterase Ur 1+ LEU/UL (Negative); Mucus Urine Rare /lpf; Nitrate Urine Negative (Negative); Protein Urine 2+ mg/dL (Negative); RBC Urine 0-2 /hpf (0-2); Specific Grav Ur 1.013 (1.001-1.035); Squamous Epithelial Cell Urine Rare /hpf (Few); Urobilinogen Urine Negative mg/dL (<2.0); WBC Urine 16-20 /hpf
[2021-05-07] MEDS: FUROSEMIDE INJ 40 MG/4 ML VIAL IV PUSH ×3 (03:18→21:00)
[2021-05-07 04:50] LABS: Troponin I 0.014 ng/mL (0.000-0.034)
[2021-05-07 07:16] LABS: Troponin I 0.018 ng/mL (0.000-0.034)
--- NOTE | 2021-05-07 08:56 | PM.IMHP ---
H&P: HPI History of Present Illness Date/Time: 05/07/21 08:56 Chief Complaint: Short of breath Narrative: 75-year-old female with history of CHF, CKD, DM, and COPD presents to the emergency complaints of increasing shortness of breath. Patient was hospitalized earlier this month for acute on chronic kidney failure and acute on chronic diastolic CHF. She was discharged home on April 24. Home O2 evaluation prior to discharge showed that she did not require oxygen. She was treated with steroids but not discharge with steroids. Her Lasix were discontinued at discharge. While at home, patient denies shortness of breath at rest but does have dyspnea on exertion. She has a pulse ox that reads 88-93% after exertion. She has never been on home oxygen. Patient sleeps in a recliner at night and has done so for past 5 years. No postural nocturnal dyspnea. Over the last 2 days she has had increasing shortness of breath but no chest pain. She does daily weights and there has been no change. She has had a slight cough which began last evening productive yellow sputum but she does have seasonal allergies and postnasal drainage. No pedal edema. No calf pain. No recent stress test or heart catheterization. Her last heart catheterization was in 2014. She sees Dr. Giles. She was supposed to follow-up with Dr. Santos for her renal failure but has not done so. She is up-to-date on her COVID vaccine with [employer] in December. She denies any anosmia or dysgeusia. No fever or chills but did feel cold last night. No odynophagia or dysphagia. No dysuria or hematuria. She has chronic back pain but no abdominal pain. No nausea, vomiting or diarrhea. She has been wheezing. Since being off the steroids from the last hospitalization, she states her glucose has been running in the 120s that she checks in the morning. Her diabetes is controlled with diet. She does have left foot numbness and renal failure but no retinopathy. No depression or anxiety issues. Her shortness of breath worsened last evening and she presented to emergency room for evaluation. In the emergency room, blood pressure was 192/101 respiratory rate is 37. Pulse ox was 91% on 5L oxygen at the time. Chest x-ray showed likely congestive heart failure with cardiomegaly with [id number] pulmonary edema. BNP was 6900. BUN 23 creatinine 2.5. Creatinine during last hospitalization ranged from 2.7-3.2. Echocardiogram last admission showed EF of 60% with grade 1 diastolic dysfunction. She has mild residual MR after mitral [place] [address] with a hemoglobin of 10. Troponin negative x3. EKG showed normal sinus rhythm, IVCD with borderline R-wave progression and borderline ST T wave changes in the high lateral leads. EKG looks very similar to prior EKGs. Chest x-ray and EKG were reviewed personally. Patient was given 1 dose of Solu-Medrol. She was started on nebulizer treatments and IV Lasix. She feels better since admission. 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 CKD (chronic kidney disease) COPD (chronic obstructive pulmonary disease) Diabetes mellitus GERD (gastroesophageal reflux disease) History of ventricular tachycardia polymorphic VTach requiring defibrillation felt related to [place] HLD (hyperlipidemia) HTN (hypertension) Hypertensive heart disease with heart failure Mitral valve regurgitation Echo April 2021 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. Myocardial infarction Pneumonia Seasonal allergies
[2021-05-07] MEDS: ASPIRIN 81 MG CHEWABLE TABLET PO (10:46)
[2021-05-07] MEDS: hydrALAZINE HCL 25 MG TABLET PO ×2 (10:46→21:00)
[2021-05-07] MEDS: ENOXAPARIN 30 MG/0.3 ML SYRINGE SUB-Q (10:46)
[2021-05-07] MEDS: POTASSIUM CHLORIDE 20 MEQ TABLET.ER PO (10:47)
[2021-05-07] MEDS: cycloSPORINE 0.4 ML OPHTH SOLUTION 1 DROP EACH EYE ×2 (10:47→21:00)
[2021-05-07] MEDS: carvediloL 12.5 MG TABLET PO ×3 (11:17→21:49)
[2021-05-07 12:10] LABS: Glucose Point of Care 252 mg/dl (65-105)
[2021-05-07] MEDS: INSULIN ASPART (*BKC) 100 UNITS/ML SUB-Q ×2 (12:24→16:33)
--- NOTE | 2021-05-07 12:40 | ADMGEN ---
This patient, Jennifer Schofield, was admitted to Virtual Bed 3rd Floor-1. Patient/family oriented to hospital policies and general routines including ID bracelet, bed and alarms, visiting hours, pain management, procedures, bathroom and other care routines, personal items, smoking policy, room service/diet, and visiting hours. Information on how to activate the Rapid Response Team has been discussed. Patient/Family are encouraged to report perceived risks to care and to ask questions if they do not understand what they are told or what they should do.
[2021-05-07 16:31] LABS: Glucose Point of Care 323 mg/dl (65-105)
--- NOTE | 2021-05-07 18:05 | PM.CNNEP ---
Assessment and Plan Assessment and plan (1) Chronic kidney disease, stage 4 (severe): Code(s): N18.4 - Chronic kidney disease, stage 4 (severe) Status: Acute Assessment and Plan: patient has chronic kidney disease stage 4. This is most likely due to diabetes hypertension and probably vascular disease. Her baseline kidney function is around 19 which is her present level. The chronic kidney disease may contribute to her swings in volume status because of the inability of the kidney to adjust to changes in salt intake. (2) Acute respiratory failure with hypoxia: Code(s): J96.01 - Acute respiratory failure with hypoxia Status: Acute Assessment and Plan: The patient has respiratory failure. Interestingly she left the hospital with a clear chest x-ray. She was not eating or drinking a lot. And in fact her weight did not increase at home so she did not gain a whole lot of fluid. However her oxygenation worsened at home in the last few days and now her chest x-ray shows fluid. I suspect that her RV works very well and so any fluid she gains goes straight into her lungs. Most people would develop swelling and weight gain along with volume overload before they would have shortness of breath. I told the patient that measuring her oximetry at home sounds like the most sensitive clue to when she is getting volume overloaded. At this point we are going to give diuretics. Will get her feeling better. We can decide how much diuretics she should be on at discharge. (3) COPD (chronic obstructive pulmonary disease): Code(s): J44.9 - Chronic obstructive pulmonary disease, unspecified Status: Acute Assessment and Plan: The patient has smoked until 6 years ago. This is most likely the reason for her COPD her COPD also contributes to the fact that just a small amount of volume will make her short of breath. (4) HTN (hypertension): Qualifiers: Hypertension type: unspecified Qualified Code(s): I10 - Essential (primary) hypertension Code(s): I10 - Essential (primary) hypertension Status: Chronic Assessment and Plan: Her blood pressure is under good control. (5) Renal osteodystrophy: Code(s): N25.0 - Renal osteodystrophy Status: Acute Assessment and Plan: Will check a phosphorus tomorrow (6) Erythropoietin deficiency anemia: Code(s): D63.1 - Anemia in chronic kidney disease Status: Acute Assessment and Plan: hemoglobin is 9.9. We will follow this along and give EPO she needs. (7) CAD (coronary artery disease): Qualifiers: Coronary Disease-Associated Artery/Lesion type: [place] artery [place] vs. transplanted heart: [place] heart Associated angina: without angina Qualified Code(s): I25.10 - Atherosclerotic heart disease of [place] coronary artery without angina pectoris Code(s): I25.10 - Atherosclerotic heart disease of [place] coronary artery without angina pectoris Status: Acute Assessment and Plan: No chest pain (8) HLD (hyperlipidemia): Qualifiers: Hyperlipidemia type: mixed hyperlipidemia Qualified Code(s): E78.2 - Mixed hyperlipidemia Code(s): E78.5 - Hyperlipidemia, unspecified Status: Chronic Assessment and Plan: she is on Crestor (9) A-fib: Qualifiers: Atrial fibrillation type: persistent (not longstanding) Qualified Code(s): I48.19 - Other persistent atrial fibrillation Code(s): I48.91 - Unspecified atrial fibrillation Status: Chronic Assessment and Plan: in sinus rhythm currently. Heart rate is good (10) Diabetes mellitus: Code(s): E11.9 - Type 2 diabetes mellitus without complications Status: Acute Assessment and Plan: on Accu-Cheks and sliding-scale insulin History of Present Illness Reason for Consult Consult date: 05/07/21 Chief Complaint Chief com
[2021-05-08] VITALS (16 sets, daily range): BP systolic 125–136; BP diastolic 57–58; PULSE 55–72; RESP 18–20; TEMP 36.3–36.7; O2SAT 92–98
[2021-05-08 00:45] LABS: Glucose Point of Care 303 mg/dl (65-105)
[2021-05-08] MEDS: ALBUTEROL SULFATE NEB 2.5 MG/0.5 ML INH 5 MG INHALATION ×3 (02:51→13:43)
[2021-05-08] MEDS: IPRATROPIUM BR 0.02% INH SOLN 0.5 MG/2.5 ML VIAL INHALATION ×3 (02:51→13:43)
[2021-05-08 06:40] LABS: Basophils Percent Auto 0.1 % (0.2-1.2); Hematocrit 26.8 % (37.0-47.0); Hemoglobin 8.5 g/dL (12.0-15.0); Immature Granulocyte Absolute 0.06 K/mm3 (0.00-0.031); Immature Granulocyte Percent A 0.5 % (0-0.5); Lymphocytes Absolute Auto 0.62 K/mm3 (0.9-3.2); Lymphocytes Percent Auto 4.8 % (18.3-44.2); Mean Corpuscular HGB Conc 31.7 g/dl (32-36); Mean Corpuscular Hemoglobin 28.3 pg (26-34); Mean Corpuscular Volume 89.3 fl (80-100); Monocytes Absolute Auto 0.4 K/mm3 (0.1-0.6); Monocytes Percent Auto 3.1 % (2.6-8.5); Neutrophils Percent Auto 91.5 % (45.5-73.1); Platelet Count Result 196 k/mm3 (150-375); Red Cell Distribution Width 13.5 % (11.5-14.5); White Blood Count 13.1 K/mm3 (4.5-10.0)
[2021-05-08 06:56] LABS: Hemoglobin A1C 7.9 % (<5.7)
[2021-05-08 07:02] LABS: Albumin Level 3.3 g/dL (3.5-5.1); Anion Gap 11 mmol/L (8-16); Blood Urea Nitrogen 40 mg/dL (7-17); Calcium 8.5 mg/dL (8.4-10.2); Carbon Dioxide 21 mmol/L (22-30); Chloride 102 mmol/L (98-107); Estimated CRCL calculation 15 ml/min; Estimated Glomerular Filt Rate 16; Glucose 285 mg/dL (65-110); Phosphorus 4.8 mg/dL (2.5-4.5); Potassium 4.1 mmol/L (3.4-5.0); Sodium 134 mmol/L (137-145)
[2021-05-08 08:02] LABS: Iron 24 ug/dL (37-170)
[2021-05-08 08:06] LABS: Glucose Point of Care 284 mg/dl (65-105)
[2021-05-08 08:15] LABS: Percent Iron Saturation 9 % (20-50)
[2021-05-08] MEDS: POTASSIUM CHLORIDE 20 MEQ TABLET.ER PO (08:15)
[2021-05-08] MEDS: FUROSEMIDE INJ 40 MG/4 ML VIAL IV PUSH ×2 (08:15→20:53)
[2021-05-08] MEDS: hydrALAZINE HCL 25 MG TABLET PO ×2 (08:15→20:52)
[2021-05-08] MEDS: cycloSPORINE 0.4 ML OPHTH SOLUTION 1 DROP EACH EYE ×2 (08:16→20:52)
[2021-05-08] MEDS: INSULIN ASPART (*BKC) 100 UNITS/ML SUB-Q ×3 (08:16→18:36)
[2021-05-08] MEDS: ENOXAPARIN 30 MG/0.3 ML SYRINGE SUB-Q (08:16)
[2021-05-08] MEDS: ASPIRIN 81 MG CHEWABLE TABLET PO (08:16)
--- NOTE | 2021-05-08 12:09 | PM.PNNEP ---
Progress Note: A&P Assessment and Plan (1) Chronic kidney disease, stage 4 (severe): Code(s): N18.4 - Chronic kidney disease, stage 4 (severe) Status: Acute Assessment and Plan: patient has chronic kidney disease stage 4. This is most likely due to diabetes hypertension and probably vascular disease. Her baseline kidney function is around 19 which is her present level. (2) Acute respiratory failure with hypoxia: Code(s): J96.01 - Acute respiratory failure with hypoxia Status: Acute Assessment and Plan: The patient has respiratory failure. this is improved after diuretics. Consider switching to p.o. diuretics at some point (3) COPD (chronic obstructive pulmonary disease): Code(s): J44.9 - Chronic obstructive pulmonary disease, unspecified Status: Acute Assessment and Plan: The patient has smoked until 6 years ago. This is most likely the reason for her COPD getting inhalers. (4) HTN (hypertension): Qualifiers: Hypertension type: unspecified Qualified Code(s): I10 - Essential (primary) hypertension Code(s): I10 - Essential (primary) hypertension Status: Chronic Assessment and Plan: Her blood pressure is under good control. (5) Renal osteodystrophy: Code(s): N25.0 - Renal osteodystrophy Status: Acute Assessment and Plan: Phosphorus doing well (6) Erythropoietin deficiency anemia: Code(s): D63.1 - Anemia in chronic kidney disease Status: Acute Assessment and Plan: hemoglobin is down to 8.5. Will give some EPO (7) CAD (coronary artery disease): Qualifiers: Coronary Disease-Associated Artery/Lesion type: [place] artery [place] vs. transplanted heart: [place] heart Associated angina: without angina Qualified Code(s): I25.10 - Atherosclerotic heart disease of [place] coronary artery without angina pectoris Code(s): I25.10 - Atherosclerotic heart disease of [place] coronary artery without angina pectoris Status: Acute Assessment and Plan: No chest pain (8) HLD (hyperlipidemia): Qualifiers: Hyperlipidemia type: mixed hyperlipidemia Qualified Code(s): E78.2 - Mixed hyperlipidemia Code(s): E78.5 - Hyperlipidemia, unspecified Status: Chronic Assessment and Plan: she is on Crestor (9) A-fib: Qualifiers: Atrial fibrillation type: persistent (not longstanding) Qualified Code(s): I48.19 - Other persistent atrial fibrillation Code(s): I48.91 - Unspecified atrial fibrillation Status: Chronic Assessment and Plan: in sinus rhythm currently. Heart rate is good in the 60s (10) Diabetes mellitus: Code(s): E11.9 - Type 2 diabetes mellitus without complications Status: Acute Assessment and Plan: on Accu-Cheks and sliding-scale insulin Subjective Date/time seen: 05/08/21 12:09 Interval history: patient is alert. She feels better. She is still on oxygen but is breathing much better Review of Systems Cardiovascular: Cardiovascular: Reports no additional cardiovascular complaints Respiratory: Respiratory: Reports no additional respiratory complaints Gastrointestinal: Gastrointestinal: Reports no additional gastrointestinal complaints Genitourinary: Genitourinary: Reports no additional female genitourinary complaints Exam Narrative: Exam Narrative: WDWN in NAD skin no rash head ncat lungs clear cor reg no rub abd BS+ nontender and soft ext no edema. Objective Data Vital Signs Vital Signs: Vital Signs - 24 hr 05/07/21 12:44 05/07/21 13:46 05/07/21 16:00 Temperature 36.7 C 36.4 C Pulse Rate 64 62 63 Respiratory Rate 18 20 Blood Pressure 130/47 L 116/48 L Pulse Oximetry 99 95 05/07/21 20:00 05/07/21 21:48 05/07/21 21:49 Temperature Pulse Rate 69 70 70 Respiratory Rate 18 Blood Pressure Pulse Oximetry 95
--- NOTE | 2021-05-08 12:17 | PM.CNCAR ---
Assessment and Plan Additional Plan 1- acute on chronic diastolic heart failure exacerbation. 2- CKD stage 5 3- Hx of MV repair. 4- History of afib , s/p maze procedure , not on AC and currently in sinus. 5- COPD. patien t was admitted with increasing SOB. CXR suggestive of pulm edema. patient was started on lasix 40 mg IV bid. repeat CXR tomorrow to assess vascular congestion. monitor renal function. adjustment of lasix tomorrow pending cxr and renal function and clinical status of the patient. History of Present Illness History of Present Illness Consult date/time: 05/08/21 12:17 Requesting physician: Sami Arriola MD Consult reason: congestive heart failure Reason For Visit: Acute CHF Exacerbation, Dyspnea, Hypoxia Narrative: this 75-year-old female who follows up with dr eckert and has a past medical history of Mitral valve repair and maze procedure 5 years ago, diastolic ,CHF, CKD, DM, previous tobacco use and COPD presents to the emergency complaints of increasing shortness of breath. Patient was hospitalized earlier this month for acute on chronic kidney failure and acute on chronic diastolic CHF. She was discharged home on April 24. Home O2 evaluation prior to discharge showed that she did not require oxygen. She was treated with steroids but not discharge with steroids. Her Lasix were discontinued at discharge. apparently she had increasing shortness of breath for the last couple days and this is why she came into the hospital. She sleeps in a recliner. she is frustrated because she wants to have oxygen at home in case she needs it. White cell count 16k, hemoglobin 8.5 compared to 10.5 earlier this month. serum creatinine on admission 2.5 and today 2.8. chest x-ray reviewed and was myself shows pulmonary vascular congestion. echocardiogram earlier this month showed ejection fraction of 65%, mild mitral regurgitation. EKG reviewed and analyzed myself shows sinus rhythm, bundle-branch block, PVCs. Review of Systems Constitutional: Constitutional: Denies chills, Denies fever(s) and Denies poor appetite Eyes: Eyes: Denies eye discharge, Denies loss of vision, Denies eye pain and Denies photophobia ENT: Denies dizziness, Denies epistaxis, Denies nasal congestion and Denies sore throat Cardiovascular: Cardiovascular: Denies chest pain, Denies syncope, Denies pedal edema, Denies leg edema, Denies palpitations, Reports dyspnea, Reports dyspnea on exertion and Reports orthopnea Respiratory: Respiratory: Denies cough, Reports dyspnea, Reports dyspnea on exertion and Denies wheezing Gastrointestinal: Gastrointestinal: Denies abdominal pain, Denies diarrhea, Denies nausea and Denies vomiting Genitourinary: Genitourinary: Denies hematuria, Denies genital lesions and Denies dysuria Musculoskeletal: Musculoskeletal: Denies arthralgias, Denies joint swelling and Denies numbness Integumentary/Breasts: Skin/Breast: Denies pruritus and Denies rash Neurologic: Denies dizziness, Denies syncope, Denies loss of vision and Denies numbness Psychiatric: Psychiatric: Denies anxiety and Denies depression Endocrine: Endocrine: Denies cold intolerance, Denies heat intolerance and Denies palpitations Hematologic/Lymphatic: Hematologic/Lymphatic: Denies easy bleeding and Denies easy bruising Allergic/Immunologic: Allergic/Immunologic: Denies urticaria and Denies wheezing PMFSH Past Medical History Medical History A-fib Paroxysmal Anemia Anxiety Arthritis Bronchitis CAD (coronary artery disease) 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 Chronic kidney disease, stage 4 (severe) CKD (chronic kidney disease) COPD (chronic obstructive pulmonary disease) Diabetes mellitus Erythropoietin deficiency anemia GERD (gastroesoph
[2021-05-08 12:20] LABS: Glucose Point of Care 229 mg/dl (65-105)
[2021-05-08] MEDS: PANTOPRAZOLE SOD SESQUIHYDRATE 20 MG TAB PO (12:27)
[2021-05-08] MEDS: carvediloL 12.5 MG TABLET PO ×2 (12:27→20:52)
--- NOTE | 2021-05-08 17:21 | PM.IMPN ---
Progress Note: A&P Assessment and Plan (1) Acute respiratory failure with hypoxia: Code(s): J96.01 - Acute respiratory failure with hypoxia Status: Acute Assessment and Plan: Patient with chronic dyspnea on exertion with adequate pulse ox but does not meet requirements for home oxygen. Patient has developed acute respiratory failure related to acute on chronic diastolic heart failure. With the appropriate treatment patient's pulse ox has improved and she has been now weaned to room air. Follow (2) Acute on chronic diastolic heart failure: Code(s): I50.33 - Acute on chronic diastolic (congestive) heart failure Status: Acute Assessment and Plan: Chest x-ray consistent with pulmonary edema. BNP 6900. Etiology unclear but patient is off of her Lasix since earlier this month probably contributing to her CHF exacerbation. Would also consider uncontrolled HTN as well. Echocardiogram recently performed on 04/21 showing EF 60-65% and mild MR and pulmonary HTN. Continue IV diuretics. Monitor renal function closely. Daily weights. CHF teaching. Appreciate cardiology input. (3) CKD (chronic kidney disease): Code(s): N18.9 - Chronic kidney disease, unspecified Status: Acute Assessment and Plan: Creatinine 2.5 on admission but suspect this is probably falsely low related to her fluid overload. Creatinine last admission was more elevated which is probably her baseline. Renal scan nuclear medicine test last admission showed symmetric kidney function but with delayed clearance consistent with CKD. Cr up to 2.8 today. Will monitor renal function closely on diuretics. Appreciate Nephrology input. (4) HTN (hypertension): Qualifiers: Hypertension type: unspecified Qualified Code(s): I10 - Essential (primary) hypertension Code(s): I10 - Essential (primary) hypertension Status: Chronic Assessment and Plan: Patient's blood pressure was reviewed on 05/08 Blood pressure was 192/101 on presentation but Blood pressure remains well controlled now. Will continue current medications. (5) Diabetes mellitus: Code(s): E11.9 - Type 2 diabetes mellitus without complications Status: Acute Assessment and Plan: A1c 7.9. The patient's blood glucose was reviewed on 05/08 Glucose remains poorly controlled. Received steroids in the ED but not continued. Continue AccuCheks covering with sliding scale. Hypoglycemia protocol available as needed. Add Lantus at night. (6) A-fib: Qualifiers: Atrial fibrillation type: persistent (not longstanding) Qualified Code(s): I48.19 - Other persistent atrial fibrillation Code(s): I48.91 - Unspecified atrial fibrillation Status: Chronic Assessment and Plan: s/p Maze procedure. Continue Coreg and Diltiazem. 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 (7) DVT prophylaxis: Code(s): Z29.9 - Encounter for prophylactic measures, unspecified Status: Acute Assessment and Plan: Lovenox (8) COPD (chronic obstructive pulmonary disease): Code(s): J44.9 - Chronic obstructive pulmonary disease, unspecified Status: Acute Assessment and Plan: She did receive Solu-Medrol once in the ED but not continued. No wheezing now. Continue neb treatments. Continue inhalers. Subjective Date/time seen: 05/08/21 17:21 Interval history: 75yo female with CKD, COPD and chronic dCHF here for SOB. SOB better overall but feels SOB with talking. She denies CP but has dry cough. Not been out of bed yet. Eating okay. She is worried because she feels she needs O2 at home but no one will give it to her (home O2 evaluations show she does not qualify). Exam Narrative: Exam Narrative: AF 97.3 127/57 65 20 98% ra Gen - NARD Chest - Bilateral lower lung field inspiratory crackles. No conversational dyspnea CV - RRR S1/S2; Tele showing PVCs Abd - Soft, NT/ND.
[2021-05-08 18:05] LABS: Glucose Point of Care 280 mg/dl (65-105)
[2021-05-08] MEDS: EPOETIN ALFA-EPBX 10,000 UNITS/ML VIAL 10000 UNITS SUB-Q (18:36)
[2021-05-08] MEDS: INSULIN GLARGINE (*BKC) 100 UNITS/ML 11 UNITS SUB-Q (20:52)
[2021-05-08] MEDS: DOCUSATE SODIUM 100 MG CAPSULE PO (20:52)
[2021-05-08 23:19] LABS: Glucose Point of Care 225 mg/dl (65-105)
--- NOTE | 2021-05-08 23:46 | PCRCNOTE ---
Window of time for administration has passed. See next scheduled administration.
[2021-05-09] VITALS (18 sets, daily range): BP systolic 125–151; BP diastolic 48–61; PULSE 58–68; RESP 16–20; TEMP 36.1–36.2; O2SAT 94–97
[2021-05-09] MEDS: IPRATROPIUM BR 0.02% INH SOLN 0.5 MG/2.5 ML VIAL INHALATION ×4 (01:50→21:57)
[2021-05-09] MEDS: ALBUTEROL SULFATE NEB 2.5 MG/0.5 ML INH 5 MG INHALATION ×4 (01:50→21:57)
[2021-05-09 06:49] LABS: Hematocrit 26.6 % (37.0-47.0); Hemoglobin 8.7 g/dL (12.0-15.0); Mean Corpuscular HGB Conc 32.7 g/dl (32-36); Mean Corpuscular Hemoglobin 28.8 pg (26-34); Mean Corpuscular Volume 88.1 fl (80-100); Mean Platelet Volume 11.1 fl (7.4-10.4); Platelet Count Result 216 k/mm3 (150-375); Red Blood Count 3.02 M/mm3 (4.2-5.4); Red Cell Distribution Width 13.7 % (11.5-14.5)
[2021-05-09 07:02] LABS: Albumin Level 3.4 g/dL (3.5-5.1); Anion Gap 11 mmol/L (8-16); Blood Urea Nitrogen 52 mg/dL (7-17); Calcium 8.4 mg/dL (8.4-10.2); Carbon Dioxide 21 mmol/L (22-30); Chloride 105 mmol/L (98-107); Estimated CRCL calculation 14 ml/min; Estimated Glomerular Filt Rate 15; Glucose 164 mg/dL (65-110); Magnesium 2.1 mg/dL (1.6-2.3); Phosphorus 5.5 mg/dL (2.5-4.5); Potassium 3.9 mmol/L (3.4-5.0); Sodium 137 mmol/L (137-145)
[2021-05-09 09:24] LABS: Glucose Point of Care 154 mg/dl (65-105)
[2021-05-09] MEDS: POTASSIUM CHLORIDE 20 MEQ TABLET.ER PO (09:31)
[2021-05-09] MEDS: ASPIRIN 81 MG CHEWABLE TABLET PO (09:32)
[2021-05-09] MEDS: FUROSEMIDE INJ 40 MG/4 ML VIAL IV PUSH ×2 (09:32→20:47)
[2021-05-09] MEDS: hydrALAZINE HCL 25 MG TABLET PO ×2 (09:32→20:49)
[2021-05-09] MEDS: cycloSPORINE 0.4 ML OPHTH SOLUTION 1 DROP EACH EYE ×2 (09:32→20:47)
[2021-05-09] MEDS: PANTOPRAZOLE SOD SESQUIHYDRATE 20 MG TAB PO (09:32)
[2021-05-09] MEDS: carvediloL 12.5 MG TABLET PO ×2 (09:32→20:48)
[2021-05-09] MEDS: ENOXAPARIN 30 MG/0.3 ML SYRINGE SUB-Q (09:32)
[2021-05-09 12:49] LABS: Glucose Point of Care 206 mg/dl (65-105)
--- NOTE | 2021-05-09 14:51 | PM.IMPN ---
Progress Note: A&P Assessment and Plan (1) Acute respiratory failure with hypoxia: Code(s): J96.01 - Acute respiratory failure with hypoxia Status: Acute Assessment and Plan: Chronic PERERA, last home O2 eval, she did not need home O2 on RA (2) Acute on chronic diastolic heart failure: Code(s): I50.33 - Acute on chronic diastolic (congestive) heart failure Status: Acute Assessment and Plan: CXR-->pulmonary edema BNP 6900 Off of Lasix since earlier this month Last ECHO 04/21-->EF 60-65% and mild MR and pulmonary HTN Continue IV diuretics, will swith to oral tomorrow Daily weights I/Os Cardiology following, recommendations appreciated (3) CKD (chronic kidney disease): Code(s): N18.9 - Chronic kidney disease, unspecified Status: Acute Assessment and Plan: Cr 2.5 on admission Renal scan showed CKD Monitor Nephrology following, recommendations appreciated Monitor BNP (4) HTN (hypertension): Qualifiers: Hypertension type: unspecified Qualified Code(s): I10 - Essential (primary) hypertension Code(s): I10 - Essential (primary) hypertension Status: Chronic Assessment and Plan: Stable Elevated on admission Will continue current medications Monitor (5) Diabetes mellitus: Code(s): E11.9 - Type 2 diabetes mellitus without complications Status: Acute Assessment and Plan: Uncontrolled A1c 7.9 Glucose remains poorly controlled Accuchecks, SSI, Lantus added yesterday Monitor (6) A-fib: Qualifiers: Atrial fibrillation type: persistent (not longstanding) Qualified Code(s): I48.19 - Other persistent atrial fibrillation Code(s): I48.91 - Unspecified atrial fibrillation Status: Chronic Assessment and Plan: s/p Maze procedure Continue Coreg and Diltiazem Not on long term care pharmacist anticoagulation Monitor (7) DVT prophylaxis: Code(s): Z29.9 - Encounter for prophylactic measures, unspecified Status: Acute Assessment and Plan: Lovenox (8) COPD (chronic obstructive pulmonary disease): Code(s): J44.9 - Chronic obstructive pulmonary disease, unspecified Status: Acute Assessment and Plan: S/p Solu-Medrol once in the ED Continue neb treatments Continue inhaler (9) Anemia: Code(s): D64.9 - Anemia, unspecified Status: Acute Assessment and Plan: Iron 24 B12 wnl On EPO Nephrology followng, recommendation apprecaiated Monitor Additional Plan Abnormal UA - Noted. UCx collected. No symptoms of UTI. Follow up on UCx results Anemia- probably related to the CKD. Iron studies reviewed. Nephrology following Subjective Date/time seen: 05/09/21 14:51 Interval history: pt seen and evaluated; she states that she feels better now; she tells me she has PERERA and when she check her O2 sat she in the high 80s and it takes a few minutes to recover; she would like home O2; she did not qualify 2 weeks ago Review of Systems Review of Systems: All systems reviewed & are unremarkable except as noted in HPI and below Exam Const: General: no acute distress, alert and awake Orientation/consciousness: patient oriented x3 HENMT: Head: normocephalic and atraumatic Ears: hearing grossly normal bilaterally and external ears normal Face and sinus: face symmetric Mouth: Yes Normal oral and palatal mucosa present Eyes: Pupils: Equal, round and reactive pupils present EOM: EOMs intact bilaterally Chest: Chest palpation & inspection: normal inspection of the chest Resp: Effort & Inspection: normal respiratory effort Auscultation: diminished lung sounds Cardio: Jugular venous distension: no JVD Rate: regular rate Rhythm: regular rhythm Heart sounds: S1 normal heart sound present and S2 normal heart sound present GI: Inspection: normal to inspection GI Palp: Yes Soft to palpation Percussion: Yes normal to percussion Ausculta
--- NOTE | 2021-05-09 15:11 | PM.IMPN ---
Subjective Date/time seen: 05/09/21 15:11 Objective Data Vital Signs Vital Signs: Vital Signs - 24 hr 05/08/21 16:00 05/08/21 20:00 05/08/21 20:52 Temperature Pulse Rate 65 62 72 Respiratory Rate Blood Pressure Pulse Oximetry 05/08/21 22:00 05/09/21 00:00 05/09/21 01:51 Temperature 36.7 C Pulse Rate 63 59 L 64 Respiratory Rate 18 18 Blood Pressure 136/57 L Pulse Oximetry 96 05/09/21 02:02 05/09/21 04:00 05/09/21 06:00 Temperature 36.2 C L Pulse Rate 65 58 L 66 Respiratory Rate 18 20 Blood Pressure 151/61 H Pulse Oximetry 95 05/09/21 07:55 05/09/21 08:00 05/09/21 08:08 Temperature Pulse Rate 64 62 66 Respiratory Rate 18 18 Blood Pressure Pulse Oximetry 96 05/09/21 12:00 05/09/21 14:00 05/09/21 14:27 Temperature 36.1 C L Pulse Rate 61 65 61 Respiratory Rate 18 20 Blood Pressure 125/50 L Pulse Oximetry 97 05/09/21 14:35 Temperature Pulse Rate 68 Respiratory Rate 20 Blood Pressure Pulse Oximetry Intake/Output Intake/Output: Intake & Output 05/06/21 05/07/21 05/08/21 05/09/21 23:59 23:59 23:59 23:59 Intake Total 740 1920 760 Output Total 194 148 5297 Balance 540 1420 -1040 Meds/Results Medications: Active Medications Generic Name Dose Route Start Last Admin Trade Name Jessica PRN Reason Stop Dose Admin Albuterol 5 mg 05/07/21 08:00 05/09/21 14:26 Albuterol Sulfate Neb 2.5 Mg/0.5 Ml Inh INHALATION 5 mg Q6HRT SUKUMAR Administration Aspirin 81 mg 05/08/21 09:00 05/09/21 09:32 Aspirin 81 Mg Chewable Tablet PO 81 mg DAILY SUKUMAR Administration Carvedilol 12.5 mg 05/07/21 21:00 05/09/21 09:32 Carvedilol 12.5 Mg Tablet PO 12.5 mg Q12HR SUKUMAR Administration Cyclosporine 1 drop 05/07/21 21:00 05/09/21 09:32 Cyclosporine 0.4 Ml Ophth Solution EACH EYE 1 drop Q12HR SUKUMAR Administration Dextrose 12.5 gm 05/07/21 09:32 Dextrose 50% 25 Gm/50 Ml Syringe IV PUSH PRN PRN Hypoglycemia Protocol Diltiazem HCl 240 mg 05/08/21 09:00 05/09/21 09:31 Diltiazem Hcl Cd 240 Mg Cap.Er.24h PO 240 mg DAILY SUKUMAR Administration Docusate Sodium 100 mg 05/08/21 21:00 05/08/21 20:52 Docusate Sodium 100 Mg Capsule PO 100 mg Q12HR SUKUMAR Administration Enoxaparin Sodium 30 mg 05/08/21 09:00 05/09/21 09:32 Enoxaparin 30 Mg/0.3 Ml Syringe SUB-Q 30 mg DAILY SUKUMAR Administration Epoetin Norm-epbx 10,000 units 05/08/21 09:00 05/08/21 18:36 Epoetin Norm-Epbx 10,000 Units/Ml Vial SUB-Q 10,000 units TuThSa@0900 SUKUMAR Administration Furosemide 40 mg 05/07/21 09:00 05/09/21 09:32 Furosemide Inj 40 Mg/4 Ml Vial IV PUSH 40 mg Q12HR SUKUMAR Administration Glucagon 1 mg 05/07/21 09:32 Glucagon For Inj 1 Mg Vial IM PRN PRN Hypoglycemia Protocol Glucose 15 gm 05/07/21 09:32 Glucose Oral Gel 15 Gm Of Glucse In 37.5 Gm Tube PO PRN PRN Hypoglycemia Protocol Hydralazine HCl 25 mg 05/07/21 21:00 05/09/21 09:32 Hydralazine Hcl 25 Mg Tablet PO 25 mg Q12HR SUKUMAR Administration Dextrose 1,000 mls @ 100 mls/hr 05/07/21 09:32 Dextrose 5% 1,000 Ml IVPB PRN PRN Hypoglycemia Protocol Insulin Aspart 2 - 5 units 05/07/21 12:00 05/09/21 09:29 Insulin Aspart (*Bkc) 100 Units/Ml SUB-Q Not Given TIDWM [facility] Protocol Insulin Glargine 11 units 05/08/21 21:00 05/08/21 20:52 Insulin Glargine (*Bkc) 100 Units/Ml 0.15 units/kg (11 units) 11 units SUB-Q Administration HS SUKUMAR Ipratropium [place] 0.5 mg 05/07/21 08:00 05/09/21 14:26 Ipratropium Br 0.02% Inh Soln 0.5 Mg/2.5 Ml Vial INHALATION 0.5 mg Q6HRT SUKUMAR Administration Pantoprazole Sodium 20 mg 05/08/21 09:00 05/09/21 09:32 Pantoprazole Sod Sesquihydrate 20 Mg Tab PO 20 mg QAM SUKUMAR Administration Potassium Chloride 20 meq 05/08/21 09:00 05/09/21 09:31 Potassium Chloride 20 Meq Tablet.Er PO 20 meq DAILY SUKUMAR
--- NOTE | 2021-05-09 16:13 | PM.PNCARD ---
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 She has been having difficulty with shortness of breath. Subjectively she is feels better after being placed back on furosemide treatment. It appears we are going to have to continue some furosemide on this lady despite the fact that recently this has been complicated by lab evidence that appears to be compatible with a prerenal state. I do not perceive there to be any new cardiac problems at this time. As stated above recent echocardiography does not show any evidence of LV systolic dysfunction or of residual mitral valve regurgitation. She does appear to have chronic pulmonary hypertension which may well be the residual of previous mitral regurgitation. If so that is likely to be irreversible. Devin Giles MD [facility] Subjective Date/time seen: Date of service:05/09/21 16:13 Interval history: Follow-up visit in this 75-year-old lady with: History of mitral valve disease and paroxysmal atrial fibrillation. Status post mitral valve repair and clinically doing well. Admitted to the hospital couple of times recently now with shortness of breath. She has been given the diagnosis of congestive heart failure but on occasion of my 1st visit with her at the beginning of the month I did not really appreciate much CHF on physical exam. Chest x-ray at the time of this admission does look a bit more congested than in the past but she still otherwise does not have any obvious signs of volume overload. Attempts to diurese her in the past furosemide have not improved the symptoms but have resulted in worsening renal function/azotemia. Furosemide has now been resumed. She does feel better and does not have any complaints currently. Exam Const: General: comfortable HENMT: Mouth: Yes moist mucous membranes Eyes: Sclera: sclerae normal Pupils: Equal, round and reactive pupils present Neck: Neck: supple and no JVD Thyroid: thyroid normal Resp: Effort & Inspection: normal respiratory effort Other: Scant basilar rales are noted Cardio: Rate: regular rate Rhythm: regular rhythm GI: GI Palp: Yes Soft to palpation Auscultation: normal bowel sounds Skin: General skin exam: normal color Neuro: Cognition (Neuro): normal cognition Extrem: Other: normal pulses, no edema Objective Data Vital Signs Vital Signs: Vital Signs - 24 hr 05/08/21 20:00 05/08/21 20:52 05/08/21 22:00 Temperature 36.7 C Pulse Rate 62 72 63 Respiratory Rate 18 Blood Pressure 136/57 L Pulse Oximetry 96 05/09/21 00:00 05/09/21 01:51 05/09/21 02:02 Temperature Pulse Rate 59 L 64 65 Respiratory Rate 18 18 Blood Pressure Pulse Oximetry 05/09/21 04:00 05/09/21 06:00 05/09/21 07:55 Temperature 36.2 C L Pulse Rate 58 L 66 64 Respiratory Rate 20 18 Blood Pressure 151/61 H Pulse Oximetry 95 96 05/09/21 08:00 05/09/21 08:08 05/09/21 12:00 Temperature Pulse Rate 62 66 61 Respiratory Rate 18 Blood Pressure Pulse Oximetry 05/09/21 14:00 05/09/21 14:27 05/09/21 14:35 Temperature 36.1 C L Pulse Rate 65 61 68 Respiratory Rate 18 20 20 Blood Pressure 125/50 L Pulse Oximetry 97 Intake/Output Intake/Output: Intake & Output 05/06/21 05/07/21 05/08/21 05/09/21 23:59 23:59 23:59 23:59 Intake Total 740 1920 760 Output Total 623 385 4632 Balance 540 1420 1040 Meds/Results Medications: Active Medications Generic Name Dose Route Start Last Admin Trade Name Jessica PRN Reason Stop Dose Admin Albuterol 5 mg 05/07/21 08:00 05/09/21 14:26 Albuterol Sulfate Neb 2.5 Mg/0.5 Ml Inh INHALATION 5 mg Q6HRT SUKUMAR Administration Aspirin 81 mg 05/08/21 09:00 05/09/21 09:32 Aspirin 81 Mg Chewable Tablet PO 81 mg DAILY SUKUMAR Administration Carvedilol 12.5 mg 05/07/21 21:00 05/09/21 09:32 Car
--- NOTE | 2021-05-09 16:26 | PM.PNNEP ---
Progress Note: A&P Assessment and Plan (1) Chronic kidney disease, stage 4 (severe): Code(s): N18.4 - Chronic kidney disease, stage 4 (severe) Status: Acute Assessment and Plan: patient has chronic kidney disease stage 4. This is most likely due to diabetes hypertension and probably vascular disease. Her baseline kidney function is around 19 which is her present level. doing well with diiuretics so far. (2) Acute respiratory failure with hypoxia: Code(s): J96.01 - Acute respiratory failure with hypoxia Status: Acute Assessment and Plan: improved. off oxygen (3) COPD (chronic obstructive pulmonary disease): Code(s): J44.9 - Chronic obstructive pulmonary disease, unspecified Status: Acute Assessment and Plan: The patient has smoked until 6 years ago. This is most likely the reason for her COPD getting inhalers. (4) HTN (hypertension): Qualifiers: Hypertension type: unspecified Qualified Code(s): I10 - Essential (primary) hypertension Code(s): I10 - Essential (primary) hypertension Status: Chronic Assessment and Plan: Her blood pressure is under good control. oin hydralazine, dilt, carvedilol (5) Renal osteodystrophy: Code(s): N25.0 - Renal osteodystrophy Status: Acute Assessment and Plan: Phosphorus doing well (6) Erythropoietin deficiency anemia: Code(s): D63.1 - Anemia in chronic kidney disease Status: Acute Assessment and Plan: hemoglobin is down to 8.5. Will give some EPO (7) CAD (coronary artery disease): Qualifiers: Coronary Disease-Associated Artery/Lesion type: [place] artery [place] vs. transplanted heart: [place] heart Associated angina: without angina Qualified Code(s): I25.10 - Atherosclerotic heart disease of [place] coronary artery without angina pectoris Code(s): I25.10 - Atherosclerotic heart disease of [place] coronary artery without angina pectoris Status: Acute Assessment and Plan: No chest pain (8) HLD (hyperlipidemia): Qualifiers: Hyperlipidemia type: mixed hyperlipidemia Qualified Code(s): E78.2 - Mixed hyperlipidemia Code(s): E78.5 - Hyperlipidemia, unspecified Status: Chronic Assessment and Plan: she is on Crestor (9) A-fib: Qualifiers: Atrial fibrillation type: persistent (not longstanding) Qualified Code(s): I48.19 - Other persistent atrial fibrillation Code(s): I48.91 - Unspecified atrial fibrillation Status: Chronic Assessment and Plan: in sinus rhythm currently. Heart rate is good in the 60s (10) Diabetes mellitus: Code(s): E11.9 - Type 2 diabetes mellitus without complications Status: Acute Assessment and Plan: on Accu-Cheks and sliding-scale insulin Subjective Date/time seen: 05/09/21 16:26 Interval history: patient is alert. She feels better. no sob. off oxygen eager for discharge Exam Narrative: Exam Narrative: WDWN in NAD skin no rash head ncat lungs clear cor reg no rub abd BS+ nontender and soft ext no edema. Objective Data Vital Signs Vital Signs: Vital Signs - 24 hr 05/08/21 20:00 05/08/21 20:52 05/08/21 22:00 Temperature 36.7 C Pulse Rate 62 72 63 Respiratory Rate 18 Blood Pressure 136/57 L Pulse Oximetry 96 05/09/21 00:00 05/09/21 01:51 05/09/21 02:02 Temperature Pulse Rate 59 L 64 65 Respiratory Rate 18 18 Blood Pressure Pulse Oximetry 05/09/21 04:00 05/09/21 06:00 05/09/21 07:55 Temperature 36.2 C L Pulse Rate 58 L 66 64 Respiratory Rate 20 18 Blood Pressure 151/61 H Pulse Oximetry 95 96 05/09/21 08:00 05/09/21 08:08 05/09/21 12:00 Temperature Pulse Rate 62 66 61 Respiratory Rate 18 Blood Pressure Pulse Oximetry 05/09/21 14:00 05/09/21 14:27 05/09/21 14:35 Temperature 36.1 C L Pulse Rate 65 61 6
[2021-05-09 17:32] LABS: Glucose Point of Care 265 mg/dl (65-105)
[2021-05-09] MEDS: DOCUSATE SODIUM 100 MG CAPSULE PO ×2 (17:35→20:47)
[2021-05-09] MEDS: INSULIN ASPART (*BKC) 100 UNITS/ML SUB-Q (17:35)
[2021-05-09 22:54] LABS: Glucose Point of Care 88 mg/dl (65-105)
[2021-05-10] VITALS (18 sets, daily range): BP systolic 152–156; BP diastolic 59–84; PULSE 58–78; RESP 16–20; TEMP 36.1–36.7; O2SAT 95–100
[2021-05-10 07:26] LABS: Albumin Level 3.2 g/dL (3.5-5.1); Anion Gap 10 mmol/L (8-16); Blood Urea Nitrogen 51 mg/dL (7-17); Calcium 8.1 mg/dL (8.4-10.2); Carbon Dioxide 24 mmol/L (22-30); Chloride 105 mmol/L (98-107); Estimated CRCL calculation 14 ml/min; Estimated Glomerular Filt Rate 15; Glucose 119 mg/dL (65-110); Phosphorus 4.8 mg/dL (2.5-4.5); Potassium 3.4 mmol/L (3.4-5.0); Sodium 139 mmol/L (137-145)
[2021-05-10 08:04] LABS: Glucose Point of Care 119 mg/dl (65-105)
[2021-05-10] MEDS: PANTOPRAZOLE SOD SESQUIHYDRATE 20 MG TAB PO (08:08)
[2021-05-10] MEDS: POTASSIUM CHLORIDE 20 MEQ TABLET.ER PO (08:08)
[2021-05-10] MEDS: carvediloL 12.5 MG TABLET PO ×2 (08:09→20:49)
[2021-05-10] MEDS: cycloSPORINE 0.4 ML OPHTH SOLUTION 1 DROP EACH EYE ×2 (08:09→20:49)
[2021-05-10] MEDS: ASPIRIN 81 MG CHEWABLE TABLET PO (08:09)
[2021-05-10] MEDS: hydrALAZINE HCL 25 MG TABLET PO ×2 (08:09→20:49)
[2021-05-10] MEDS: DOCUSATE SODIUM 100 MG CAPSULE PO (08:13)
--- NOTE | 2021-05-10 08:41 | PM.PNNEP ---
Progress Note: A&P Assessment and Plan (1) Chronic kidney disease, stage 4 (severe): Code(s): N18.4 - Chronic kidney disease, stage 4 (severe) Status: Acute Assessment and Plan: patient has chronic kidney disease stage 4. This is most likely due to diabetes hypertension and probably vascular disease. Her baseline kidney function is around 19 which is her present level. doing well with diiuretics so far. okay from kidney standpoint to switch to p.o. diuretics and discharge whenever cardiology is ready. (2) Acute respiratory failure with hypoxia: Code(s): J96.01 - Acute respiratory failure with hypoxia Status: Acute Assessment and Plan: improved. off oxygen (3) COPD (chronic obstructive pulmonary disease): Code(s): J44.9 - Chronic obstructive pulmonary disease, unspecified Status: Acute Assessment and Plan: The patient has smoked until 6 years ago. This is most likely the reason for her COPD getting inhalers. (4) HTN (hypertension): Qualifiers: Hypertension type: unspecified Qualified Code(s): I10 - Essential (primary) hypertension Code(s): I10 - Essential (primary) hypertension Status: Chronic Assessment and Plan: Her blood pressure is under good control. oin hydralazine, dilt, carvedilol (5) Renal osteodystrophy: Code(s): N25.0 - Renal osteodystrophy Status: Acute Assessment and Plan: Phosphorus doing well (6) Erythropoietin deficiency anemia: Code(s): D63.1 - Anemia in chronic kidney disease Status: Acute Assessment and Plan: hemoglobin is down to 8.5. Will give some EPO (7) CAD (coronary artery disease): Qualifiers: Coronary Disease-Associated Artery/Lesion type: [place] artery [place] vs. transplanted heart: [place] heart Associated angina: without angina Qualified Code(s): I25.10 - Atherosclerotic heart disease of [place] coronary artery without angina pectoris Code(s): I25.10 - Atherosclerotic heart disease of [place] coronary artery without angina pectoris Status: Acute Assessment and Plan: No chest pain (8) HLD (hyperlipidemia): Qualifiers: Hyperlipidemia type: mixed hyperlipidemia Qualified Code(s): E78.2 - Mixed hyperlipidemia Code(s): E78.5 - Hyperlipidemia, unspecified Status: Chronic Assessment and Plan: she is on Crestor (9) A-fib: Qualifiers: Atrial fibrillation type: persistent (not longstanding) Qualified Code(s): I48.19 - Other persistent atrial fibrillation Code(s): I48.91 - Unspecified atrial fibrillation Status: Chronic Assessment and Plan: in sinus rhythm currently. Heart rate is good in the 60s (10) Diabetes mellitus: Code(s): E11.9 - Type 2 diabetes mellitus without complications Status: Acute Assessment and Plan: on Accu-Cheks and sliding-scale insulin Subjective Date/time seen: 05/10/21 08:41 Interval history: patient is alert. She feels better. no sob. off oxygen eager for discharge Exam Narrative: Exam Narrative: WDWN in NAD skin no rash head ncat lungs clear bilaterally cor reg no rub or gallop abd BS+ nontender and soft ext no edema. Objective Data Vital Signs Vital Signs: Vital Signs - 24 hr 05/09/21 12:00 05/09/21 14:00 05/09/21 14:27 Temperature 36.1 C L Pulse Rate 61 65 61 Respiratory Rate 18 20 Blood Pressure 125/50 L Pulse Oximetry 97 05/09/21 14:35 05/09/21 16:00 05/09/21 20:00 Temperature Pulse Rate 68 62 64 Respiratory Rate 20 Blood Pressure Pulse Oximetry 05/09/21 20:48 05/09/21 22:00 05/09/21 22:15 Temperature 36.1 C L Pulse Rate 64 62 61 Respiratory Rate 18 16 Blood Pressure 139/48 L Pulse Oximetry 96 94 05/09/21 22:22 05/10/21 00:00 05/10/21 04:00 Temperature Pulse Rate 61 61 58 L Respiratory Rate 16 Blood
[2021-05-10] MEDS: ALBUTEROL SULFATE NEB 2.5 MG/0.5 ML INH 5 MG INHALATION ×3 (08:48→19:31)
[2021-05-10] MEDS: IPRATROPIUM BR 0.02% INH SOLN 0.5 MG/2.5 ML VIAL INHALATION ×3 (08:48→19:32)
[2021-05-10 12:47] LABS: Glucose Point of Care 239 mg/dl (65-105)
[2021-05-10] MEDS: EPOETIN ALFA-EPBX 10,000 UNITS/ML VIAL 10000 UNITS SUB-Q (13:03)
[2021-05-10] MEDS: INSULIN ASPART (*BKC) 100 UNITS/ML SUB-Q (13:03)
--- NOTE | 2021-05-10 14:47 | PM.IMPN ---
Progress Note: A&P Assessment and Plan (1) Acute respiratory failure with hypoxia: Code(s): J96.01 - Acute respiratory failure with hypoxia Status: Acute Assessment and Plan: Chronic PERERA, last home O2 eval, she did not need home O2 on RA Will reassess, pt educated on acceptabl O2 level (2) Acute on chronic diastolic heart failure: Code(s): I50.33 - Acute on chronic diastolic (congestive) heart failure Status: Acute Assessment and Plan: CXR-->pulmonary edema BNP 6900 Off of Lasix since earlier this month Last ECHO 04/21-->EF 60-65% and mild MR and pulmonary HTN Switch to oral Lasix BID Daily weights I/Os Cardiology following, recommendations appreciated (3) CKD (chronic kidney disease): Code(s): N18.9 - Chronic kidney disease, unspecified Status: Acute Assessment and Plan: Cr 2.5 on admission Renal scan showed CKD Monitor Nephrology following, recommendations appreciated Monitor BNP (4) HTN (hypertension): Qualifiers: Hypertension type: unspecified Qualified Code(s): I10 - Essential (primary) hypertension Code(s): I10 - Essential (primary) hypertension Status: Chronic Assessment and Plan: Stable Elevated on admission Will continue current medications Monitor (5) Diabetes mellitus: Code(s): E11.9 - Type 2 diabetes mellitus without complications Status: Acute Assessment and Plan: Uncontrolled A1c 7.9 Glucose remains poorly controlled Accuchecks, SSI, Lantus added yesterday Monitor (6) A-fib: Qualifiers: Atrial fibrillation type: persistent (not longstanding) Qualified Code(s): I48.19 - Other persistent atrial fibrillation Code(s): I48.91 - Unspecified atrial fibrillation Status: Chronic Assessment and Plan: s/p Maze procedure Continue Coreg and Diltiazem Not on shelter anticoagulation Monitor (7) DVT prophylaxis: Code(s): Z29.9 - Encounter for prophylactic measures, unspecified Status: Acute Assessment and Plan: Lovenox (8) COPD (chronic obstructive pulmonary disease): Code(s): J44.9 - Chronic obstructive pulmonary disease, unspecified Status: Acute Assessment and Plan: S/p Solu-Medrol once in the ED Continue neb treatments Continue inhaler (9) Anemia: Code(s): D64.9 - Anemia, unspecified Status: Acute Assessment and Plan: Iron 24 B12 wnl On EPO Nephrology followng, recommendation apprecaiated Monitor Subjective Date/time seen: 05/10/21 14:47 Interval history: overall pt has improved; denies any SOB or cough; home O2 eval today Review of Systems Review of Systems: All systems reviewed & are unremarkable except as noted in HPI and below Exam Const: General: no acute distress, alert and awake Orientation/consciousness: patient oriented x3 HENMT: Head: normocephalic and atraumatic Ears: hearing grossly normal bilaterally and external ears normal Face and sinus: face symmetric Mouth: Yes Normal oral and palatal mucosa present Eyes: Pupils: Equal, round and reactive pupils present EOM: EOMs intact bilaterally Chest: Chest palpation & inspection: normal inspection of the chest Resp: Effort & Inspection: normal respiratory effort Auscultation: diminished lung sounds Cardio: Jugular venous distension: no JVD Rate: regular rate Rhythm: regular rhythm Heart sounds: S1 normal heart sound present and S2 normal heart sound present GI: Inspection: normal to inspection Auscultation: normal bowel sounds : General: Yes no CVA tenderness Back/Spine/Pelvis: Back: no CVA tenderness Skin: General skin exam: normal color Rashes: no rashes Neuro: General: patient oriented x3 and CN's II-XI intact bilaterally Cranial nerves: Yes Equal, round and reactive pupils present Speech: normal speech Psych: Appearance: grossly normal Affect: normal affect Judgeme
--- NOTE | 2021-05-10 15:00 | PCRCNOTE ---
Pt. purchased a home nebulizer and will be getting a script for medication for it upon discharge. Pt. and spouse instructed by discussion and demonstration on how to use it. A new nebulizer set up was also sent home with Pt.
--- NOTE | 2021-05-10 15:52 | PCRCNOTE ---
HOME OXYGEN EVALUATION COMPLETE; PT. DOES NOT REQUIRE HOME OXYGEN. OREN ARAMBULA AND PT.'S R.N. BOTH NOTIFIED OF THE RESULTS.
[2021-05-10 17:21] LABS: Glucose Point of Care 122 mg/dl (65-105)
[2021-05-10] MEDS: INSULIN GLARGINE (*BKC) 100 UNITS/ML 11 UNITS SUB-Q (20:46)
[2021-05-10 21:03] LABS: Glucose Point of Care 172 mg/dl (65-105)
[2021-05-11] VITALS (11 sets, daily range): BP systolic 178; BP diastolic 61; PULSE 61–72; RESP 16–20; TEMP 36.5; O2SAT 95–97
[2021-05-11] MEDS: IPRATROPIUM BR 0.02% INH SOLN 0.5 MG/2.5 ML VIAL INHALATION ×2 (01:40→09:51)
[2021-05-11] MEDS: ALBUTEROL SULFATE NEB 2.5 MG/0.5 ML INH 5 MG INHALATION ×2 (01:40→09:51)
[2021-05-11 08:37] LABS: Glucose Point of Care 104 mg/dl (65-105)
[2021-05-11] MEDS: ASPIRIN 81 MG CHEWABLE TABLET PO (09:00)
[2021-05-11] MEDS: carvediloL 12.5 MG TABLET PO (09:00)
[2021-05-11] MEDS: cycloSPORINE 0.4 ML OPHTH SOLUTION 1 DROP EACH EYE (09:01)
[2021-05-11] MEDS: ENOXAPARIN 30 MG/0.3 ML SYRINGE SUB-Q (09:01)
[2021-05-11] MEDS: POTASSIUM CHLORIDE 20 MEQ TABLET.ER PO (09:02)
[2021-05-11] MEDS: FUROSEMIDE 40 MG TABLET PO (09:02)
[2021-05-11] MEDS: hydrALAZINE HCL 25 MG TABLET PO ×2 (09:02→10:49)
[2021-05-11] MEDS: PANTOPRAZOLE SOD SESQUIHYDRATE 20 MG TAB PO (09:02)
--- NOTE | 2021-05-11 09:03 | PM.PNNEP ---
Progress Note: A&P Assessment and Plan (1) Chronic kidney disease, stage 4 (severe): Code(s): N18.4 - Chronic kidney disease, stage 4 (severe) Status: Acute Assessment and Plan: patient has chronic kidney disease stage 4. This is most likely due to diabetes hypertension and probably vascular disease. creatinine is stable and at baseline (2) Acute respiratory failure with hypoxia: Code(s): J96.01 - Acute respiratory failure with hypoxia Status: Acute Assessment and Plan: improved. on oral diuretics off oxygen (3) COPD (chronic obstructive pulmonary disease): Code(s): J44.9 - Chronic obstructive pulmonary disease, unspecified Status: Acute Assessment and Plan: The patient has smoked until 6 years ago. This is most likely the reason for her COPD getting inhalers. (4) HTN (hypertension): Qualifiers: Hypertension type: unspecified Qualified Code(s): I10 - Essential (primary) hypertension Code(s): I10 - Essential (primary) hypertension Status: Chronic Assessment and Plan: Her blood pressure is under good control. oin hydralazine, dilt, carvedilol. Increase hydralazine to 50 b.i.d. (5) Renal osteodystrophy: Code(s): N25.0 - Renal osteodystrophy Status: Acute Assessment and Plan: Phosphorus doing well (6) Erythropoietin deficiency anemia: Code(s): D63.1 - Anemia in chronic kidney disease Status: Acute Assessment and Plan: hemoglobin is down to 8.5. Will give some EPO (7) CAD (coronary artery disease): Qualifiers: Coronary Disease-Associated Artery/Lesion type: [place] artery [place] vs. transplanted heart: [place] heart Associated angina: without angina Qualified Code(s): I25.10 - Atherosclerotic heart disease of [place] coronary artery without angina pectoris Code(s): I25.10 - Atherosclerotic heart disease of [place] coronary artery without angina pectoris Status: Acute Assessment and Plan: No chest pain (8) HLD (hyperlipidemia): Qualifiers: Hyperlipidemia type: mixed hyperlipidemia Qualified Code(s): E78.2 - Mixed hyperlipidemia Code(s): E78.5 - Hyperlipidemia, unspecified Status: Chronic Assessment and Plan: she is on Crestor (9) A-fib: Qualifiers: Atrial fibrillation type: persistent (not longstanding) Qualified Code(s): I48.19 - Other persistent atrial fibrillation Code(s): I48.91 - Unspecified atrial fibrillation Status: Chronic Assessment and Plan: in sinus rhythm currently. Heart rate is good in the 60s (10) Diabetes mellitus: Code(s): E11.9 - Type 2 diabetes mellitus without complications Status: Acute Assessment and Plan: on Accu-Cheks and sliding-scale insulin Subjective Date/time seen: 05/11/21 09:03 Interval history: patient is alert. She feels better. no sob. off oxygen eager for discharge Exam Narrative: Exam Narrative: WDWN in NAD skin no rash or subcu nodules head ncat lungs clear bilaterally cor reg no rub or gallop abd BS+ nontender and soft ext no edema. Objective Data Vital Signs Vital Signs: Vital Signs - 24 hr 05/10/21 12:00 05/10/21 14:00 05/10/21 14:28 Temperature 36.7 C Pulse Rate 62 60 60 Respiratory Rate 20 16 Blood Pressure 152/65 H Pulse Oximetry 100 05/10/21 14:39 05/10/21 15:30 05/10/21 15:35 Temperature Pulse Rate 61 67 76 Respiratory Rate 16 Blood Pressure Pulse Oximetry 98 95 05/10/21 16:00 05/10/21 19:34 05/10/21 19:41 Temperature Pulse Rate 62 63 60 Respiratory Rate 20 16 Blood Pressure Pulse Oximetry 95 05/10/21 20:00 05/10/21 20:49 05/10/21 21:21 Temperature 36.1 C L Pulse Rate 78 78 62 Respiratory Rate 16 18 Blood Pressure 155/84 H Pulse Oximetry 95 98 05/11/21 00:00 05/11/21 01:43 05/11/21 01:48 Temperature
[2021-05-11] MEDS: DOCUSATE SODIUM 100 MG CAPSULE PO (09:04)
[2021-05-11 09:18] LABS: Hematocrit 30.4 % (37.0-47.0); Hemoglobin 9.7 g/dL (12.0-15.0); Mean Corpuscular HGB Conc 31.9 g/dl (32-36); Mean Corpuscular Hemoglobin 28.7 pg (26-34); Mean Corpuscular Volume 89.9 fl (80-100); Mean Platelet Volume 10.5 fl (7.4-10.4); Platelet Count Result 239 k/mm3 (150-375); Red Blood Count 3.38 M/mm3 (4.2-5.4); Red Cell Distribution Width 13.6 % (11.5-14.5); White Blood Count 7.1 K/mm3 (4.5-10.0)
[2021-05-11 09:31] LABS: Alanine Aminotransferase 10 U/L (4-35); Albumin Level 3.2 g/dL (3.5-5.1); Alkaline Phosphatase 58 U/L (38-126); Anion Gap 8 mmol/L (8-16); Aspartate Amino Transferase 13 U/L (14-36); Bilirubin,Total 0.5 mg/dL (0.2-1.3); Blood Urea Nitrogen 43 mg/dL (7-17); Calcium 8.2 mg/dL (8.4-10.2); Carbon Dioxide 26 mmol/L (22-30); Chloride 104 mmol/L (98-107); Estimated CRCL calculation 16 ml/min; Estimated Glomerular Filt Rate 17; Glucose 170 mg/dL (65-110); Potassium 3.7 mmol/L (3.4-5.0); Sodium 138 mmol/L (137-145)
--- NOTE | 2021-05-11 11:30 | P.DS_ITS ---
DS: Admitting Diagnosis Admitting Diagnosis sob DS: Discharge Diagnosis Discharge Diagnosis (1) Acute respiratory failure with hypoxia: Code(s): J96.01 - Acute respiratory failure with hypoxia Status: Acute Assessment and Plan: * Resolved * possibly secondary to COPD versus CHF * home O2 evaluation does not indicate a need for oxygen * patient was discharged home with prednisone and breathing treatments l (2) Acute on chronic diastolic heart failure: Code(s): I50.33 - Acute on chronic diastolic (congestive) heart failure Status: Acute Assessment and Plan: * imaging indicates pulmonary edema * BNP on admission 6900 * Lasix restarted as recommended by Cardiology * echo 04/21 indicates EF 60-65% and mild MR and pulmonary hypertension * repeat CMP with results going to primary care physician (3) CKD (chronic kidney disease): Code(s): N18.9 - Chronic kidney disease, unspecified Status: Acute Assessment and Plan: * Cr 2.5 >2.80>3.00>2.70 appears to be at baseline * possibly secondary to hypertension and diabetes * Renal scan on 04/24 showed CKD * patient will have the follow-up with Dr. Santos as outpatient (4) HTN (hypertension): Qualifiers: Hypertension type: unspecified Qualified Code(s): I10 - Essential (primary) hypertension Code(s): I10 - Essential (primary) hypertension Status: Chronic Assessment and Plan: * Stable * continue home medication (5) Diabetes mellitus: Code(s): E11.9 - Type 2 diabetes mellitus without complications Status: Acute Assessment and Plan: * A1c 7.9 * blood sugar below 300 * continue home medication * patient instructed to notify primary care physician if her blood sugar goes above 300 for possible medication adjustment. 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 (7) DVT prophylaxis: Code(s): Z29.9 - Encounter for prophylactic measures, unspecified Status: Acute Assessment and Plan: Lovenox (8) COPD (chronic obstructive pulmonary disease): Code(s): J44.9 - Chronic obstructive pulmonary disease, unspecified Status: Acute Assessment and Plan: * stable * S/p Solu-Medrol once in the ED * will discharge home with prednisone * Continue neb treatments and inhalers (9) Anemia: Code(s): D64.9 - Anemia, unspecified Status: Acute Assessment and Plan: * Iron 24 * B12 wnl * On EPO * will follow-up with Nephrology on discha r DS: Summary Hospital Course Reason for hospitalization: SOB Hospital Course: 75-year-old female with history of CHF, CKD, DM, and COPD presents to the emergency complaints of increasing shortness of breath. Patient was hospitalized earlier this month for acute on chronic kidney failure and acute on chronic diastolic CHF. She was discharged home on April 24. Home O2 evaluation prior to discharge showed that she did not require oxygen. She was treated with steroids but not discharge
--- NOTE | 2021-05-11 11:30 | PM.DS ---
DS: Admitting Diagnosis Admitting Diagnosis sob DS: Discharge Diagnosis Discharge Diagnosis (1) Acute respiratory failure with hypoxia: Code(s): J96.01 - Acute respiratory failure with hypoxia Status: Acute Assessment and Plan: Resolved possibly secondary to COPD versus CHF home O2 evaluation does not indicate a need for oxygen patient was discharged home with prednisone and breathing treatments l (2) Acute on chronic diastolic heart failure: Code(s): I50.33 - Acute on chronic diastolic (congestive) heart failure Status: Acute Assessment and Plan: imaging indicates pulmonary edema BNP on admission 6900 Lasix restarted as recommended by Cardiology echo 04/21 indicates EF 60-65% and mild MR and pulmonary hypertension repeat CMP with results going to primary care physician (3) CKD (chronic kidney disease): Code(s): N18.9 - Chronic kidney disease, unspecified Status: Acute Assessment and Plan: Cr 2.5 >2.80>3.00>2.70 appears to be at baseline possibly secondary to hypertension and diabetes Renal scan on 04/24 showed CKD patient will have the follow-up with Dr. Santos as outpatient (4) HTN (hypertension): Qualifiers: Hypertension type: unspecified Qualified Code(s): I10 - Essential (primary) hypertension Code(s): I10 - Essential (primary) hypertension Status: Chronic Assessment and Plan: Stable continue home medication (5) Diabetes mellitus: Code(s): E11.9 - Type 2 diabetes mellitus without complications Status: Acute Assessment and Plan: A1c 7.9 blood sugar below 300 continue home medication patient instructed to notify primary care physician if her blood sugar goes above 300 for possible medication adjustment. informed that her blood sugar may be elevated due to the use of prednisone (6) A-fib: Qualifiers: Atrial fibrillation type: persistent (not longstanding) Qualified Code(s): I48.19 - Other persistent atrial fibrillation Code(s): I48.91 - Unspecified atrial fibrillation Status: Chronic Assessment and Plan: s/p Maze procedure Continue Coreg and Diltiazem Not on snf anticoagulation Monitor (7) DVT prophylaxis: Code(s): Z29.9 - Encounter for prophylactic measures, unspecified Status: Acute Assessment and Plan: Lovenox (8) COPD (chronic obstructive pulmonary disease): Code(s): J44.9 - Chronic obstructive pulmonary disease, unspecified Status: Acute Assessment and Plan: stable S/p Solu-Medrol once in the ED will discharge home with prednisone Continue neb treatments and inhalers (9) Anemia: Code(s): D64.9 - Anemia, unspecified Status: Acute Assessment and Plan: Iron 24 B12 wnl On EPO will follow-up with Nephrology on discha r DS: Summary Hospital Course Reason for hospitalization: SOB Hospital Course: 75-year-old female with history of CHF, CKD, DM, and COPD presents to the emergency complaints of increasing shortness of breath. Patient was hospitalized earlier this month for acute on chronic kidney failure and acute on chronic diastolic CHF. She was discharged home on April 24. Home O2 evaluation prior to discharge showed that she did not require oxygen. She was treated with steroids but not discharge with steroids. Her Lasix were discontinued at discharge. While at home, patient denies shortness of breath at rest but did have dyspnea on exertion. She had a pulse ox that reads 88-93% after exertion. She has never been on home oxygen. Patient sleeps in a recliner at night and has done so for past 5 years. No postural nocturnal dyspnea. she had increasing shortness of breath but no chest pain. She did daily weights and there has been no change. She is up-to-date on her COVID vaccine with [facility]
== END 2021-05-11 12:50 | disposition home or self-care (01) | DRG 291 ==
LOC: ANHED 02:58 → ANH3MEDSUR 08:58
PROVIDERS: Emergency Medicine; Internal Medicine; Internal Medicine Nephrology; Admitting Provider Internal Medicine; Emergency Provider Emergency Medicine; PCP Student in an Organized Health Care Education/Training Program; Visit Provider Nurse Practitioner
DX: I13.0 Hypertensive heart and chronic kidney disease with heart failure and stage 1 through stage 4 chronic kidney disease, or unspecified chronic kidney disease (principal); J96.01 Acute respiratory failure with hypoxia; I50.33 Acute on chronic diastolic (congestive) heart failure; I48.19 Other persistent atrial fibrillation; N17.9 Acute kidney failure, unspecified; N18.4 Chronic kidney disease, stage 4 (severe); N25.0 Renal osteodystrophy; D63.1 Anemia in chronic kidney disease; E11.22 Type 2 diabetes mellitus with diabetic chronic kidney disease; E11.21 Type 2 diabetes mellitus with diabetic nephropathy; E78.2 Mixed hyperlipidemia; E78.5 Hyperlipidemia, unspecified; J44.9 Chronic obstructive pulmonary disease, unspecified; M19.90 Unspecified osteoarthritis, unspecified site; F41.9 Anxiety disorder, unspecified; I25.10 Atherosclerotic heart disease of native coronary artery without angina pectoris; K21.9 Gastro-esophageal reflux disease without esophagitis; I25.2 Old myocardial infarction; Z79.4 Long term (current) use of insulin; Z90.710 Acquired absence of both cervix and uterus; Z87.891 Personal history of nicotine dependence
CPT/HCPCS: 36415; 71045; 71046; 80053; 80069; 81001; 82607; 82728; 82746; 82948; 83036; 83540; 83550; 83735; 83880; 84484; 85025; 85027; 85610; 85730; 87086; 87088; 93005; 94618; 94640; 96374; 99285; A9270; J1650; J1815; J1940; J2930; Q5106

== ENCOUNTER → 2021-08-09 01:32 | Outpatient (CLI) | payer MEDICARE, SELFPAY ==
[2021-08-09 18:07] LABS: SARS-CoV-2 RNA PCR Negative
== END ==
PROVIDERS: PCP Student in an Organized Health Care Education/Training Program; Visit Provider Student in an Organized Health Care Education/Training Program
DX: Z20.822 Contact with and (suspected) exposure to COVID-19 (principal)
CPT/HCPCS: C9803; U0003; U0005

== ENCOUNTER 2021-08-17 11:43 | Emergency (ER) | payer MEDICARE, SELFPAY ==
[2021-08-17 11:47] VITALS: BP 192/82; PULSE 68; RESP 16; TEMP 36.3; O2SAT 98
[2021-08-17 11:52] VITALS: BP 192/82; PULSE 68; RESP 16; TEMP 36.3; O2SAT 98
--- NOTE | 2021-08-17 12:19 | ED.FEMALEGU ---
HPI - Female Genitourinary General Chief complaint: Urogenital-Female Stated complaint: POS UTI Time Seen by Provider: 08/17/21 12:06 Source: patient and RN notes reviewed Mode of arrival: ambulatory Limitations: no limitations History of Present Illness HPI Narrative: Patient presents today complaining of a 2-day history of dysuria, frequency, lower abdominal pain. Denies hematuria or back pain. Believes she has a UTI. States she took a self test at home that was positive for leukocytes. Last week she took 3 days of Bactrim for UTI symptoms and states it did not help with her symptoms. MD elicited complaint: UTI Related Data Home Medications Medication Instructions Recorded Confirmed cyclosporine 0.05 % eye drops 1 drop EACH EYE Q12H 10/24/19 05/07/21 carvedilol 12.5 mg PO BID 03/09/21 05/07/21 hydralazine 25 mg PO BID 03/09/21 05/07/21 potassium chloride 20 meq PO DAILY 03/09/21 05/07/21 rosuvastatin 5 mg PO HS 03/09/21 05/07/21 Allergies Allergy/AdvReac Type Severity Reaction Status Date / Time amiodarone Allergy Severe Unresponsiv Verified 05/07/21 01:01 e Vsxdazp-MYK-ZqY Reductase Allergy Severe Muscle Pain Verified 05/07/21 01:01 Inhibitor [Iyieobj-Skj-Xih Reductase Inhibitor] ciprofloxacin Allergy Mild Unknown Verified 05/07/21 01:01 cephalexin Allergy Unknown Rash Verified 05/07/21 01:01 nitrofurantoin Allergy Unknown hand Verified 05/07/21 01:01 swelling Review of Systems Review of Systems: CONSTITUTIONAL: Denies body aches, fever, chills, or sweats. EYES: Denies visual changes, redness, or discharge. ENT: Denies rhinorrhea, congestion, sore throat, or otalgia. CARDIOVASCULAR: Denies chest pain, palpitations, or edema. RESPIRATORY: Denies cough or dyspnea. GASTROINTESTINAL: Denies nausea, vomiting, or diarrhea.+ Lower abdominal pain GENITOURINARY: Denies hematuria.+ Dysuria, frequency SKIN: Denies rash, itching, or wounds. MUSCULOSKELETAL: Denies back pain, joint pain, or myalgia. NEUROLOGIC: Denies headache, numbness, tingling, or weakness. PSYCH: Denies depression or anxiety. 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 Her is
== END 2021-08-17 12:27 | disposition home or self-care (01) ==
PROVIDERS: Emergency Provider Nurse Practitioner; PCP Student in an Organized Health Care Education/Training Program
DX: N30.00 Acute cystitis without hematuria (principal); Z87.891 Personal history of nicotine dependence; I48.0 Paroxysmal atrial fibrillation; D64.9 Anemia, unspecified; F41.9 Anxiety disorder, unspecified; M19.90 Unspecified osteoarthritis, unspecified site; I25.10 Atherosclerotic heart disease of native coronary artery without angina pectoris; I13.0 Hypertensive heart and chronic kidney disease with heart failure and stage 1 through stage 4 chronic kidney disease, or unspecified chronic kidney disease; E11.22 Type 2 diabetes mellitus with diabetic chronic kidney disease; N18.4 Chronic kidney disease, stage 4 (severe); I50.32 Chronic diastolic (congestive) heart failure; Z79.4 Long term (current) use of insulin; J44.9 Chronic obstructive pulmonary disease, unspecified; K21.9 Gastro-esophageal reflux disease without esophagitis; E78.5 Hyperlipidemia, unspecified; I25.2 Old myocardial infarction
CPT/HCPCS: 81003; 87086; 87088; 99213; G0463

== ENCOUNTER 2021-10-02 10:01 | Emergency (ER) | payer MEDICARE, SELFPAY ==
--- NOTE | 2021-10-02 10:04 | ED.FEMALEGU ---
HPI - Female Genitourinary General Chief complaint: Urogenital-Female Stated complaint: POS UTI Time Seen by Provider: 10/02/21 10:25 Source: patient and RN notes reviewed Mode of arrival: ambulatory Limitations: no limitations History of Present Illness HPI Narrative: 76-year-old female presents with concern for urine frequency, suprapubic pressure and pain. Reports symptoms started overnight. She reports frequent infections. Reports her last infection was in July. Reports she has an appoint with her primary care provider on Wednesday. She denies back pain, nausea, vomiting, abdominal pain. She denies intervention. She denies abnormal vaginal discharge or bleeding. MD elicited complaint: UTI Related Data Home Medications Medication Instructions Recorded Confirmed cyclosporine 0.05 % eye drops 1 drop EACH EYE Q12H 10/24/19 10/02/21 carvedilol 12.5 mg PO BID 03/09/21 10/02/21 hydralazine 25 mg PO BID 03/09/21 10/02/21 potassium chloride 20 meq PO DAILY 03/09/21 10/02/21 cljnzugtkup-xyaiacnyy-yxiowyty INHALATION 10/02/21 [Trelegy Ellipta] Allergies Allergy/AdvReac Type Severity Reaction Status Date / Time amiodarone Allergy Severe Unresponsiv Verified 10/02/21 10:07 e Ccchjcm-JOD-KaN Reductase Allergy Severe Muscle Pain Verified 10/02/21 10:07 Inhibitor [Nxxxeyz-Uju-Idx Reductase Inhibitor] ciprofloxacin Allergy Mild Unknown Verified 10/02/21 10:07 cephalexin Allergy Unknown Rash Verified 10/02/21 10:07 nitrofurantoin Allergy Unknown hand Verified 10/02/21 10:07 swelling Review of Systems Review of Systems: CONSTITUTIONAL: Denies malaise, chills, sweats, or fever. CARDIOVASCULAR: Denies chest pain, palpitations, or edema. RESPIRATORY: Denies cough or dyspnea. GASTROINTESTINAL: Denies abdominal pain, nausea, vomiting, diarrhea GENITOURINARY: Reports frequency, urgency, suprapubic pressure. Denies dysuria, flank pain or hematuria. SKIN: Denies rash or itching. MUSCULOSKELETAL: Denies back pain or myalgia. 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 Her is durable p
[2021-10-02 10:11] VITALS: BP 168/68; PULSE 73; RESP 16; TEMP 36.3; O2SAT 95
== END 2021-10-02 10:45 | disposition home or self-care (01) ==
PROVIDERS: Emergency Provider Nurse Practitioner; PCP Student in an Organized Health Care Education/Training Program
DX: R35.0 Frequency of micturition (principal); Z87.891 Personal history of nicotine dependence; M19.90 Unspecified osteoarthritis, unspecified site; I25.10 Atherosclerotic heart disease of native coronary artery without angina pectoris; J44.9 Chronic obstructive pulmonary disease, unspecified; E78.5 Hyperlipidemia, unspecified; I25.2 Old myocardial infarction; I13.0 Hypertensive heart and chronic kidney disease with heart failure and stage 1 through stage 4 chronic kidney disease, or unspecified chronic kidney disease; E11.22 Type 2 diabetes mellitus with diabetic chronic kidney disease; N18.9 Chronic kidney disease, unspecified; I50.32 Chronic diastolic (congestive) heart failure; I48.0 Paroxysmal atrial fibrillation; D64.9 Anemia, unspecified
CPT/HCPCS: 81003; 87077; 87086; 87186; 99213; G0463

== ENCOUNTER 2021-11-22 12:28 | Emergency (ER) | payer MEDICARE, SELFPAY ==
--- NOTE | 2021-11-22 12:36 | ED.FEMALEGU ---
HPI - Female Genitourinary General Chief complaint: Urogenital-Female Stated complaint: Urinary pain Time Seen by Provider: 11/22/21 12:44 Source: patient Limitations: no limitations History of Present Illness HPI Narrative: 76-year-old female presented for complaint of I think I have a UTI. Endorses frequency, urgency, and dysuria. She states she has been getting them frequently over the last 6 years. She denies having a urologist. Endorses history of diabetes, A. fib, hypertension, and CKD. Last UTI was September, for which she was treated with Augmentin. Currently denies nausea, vomiting, diarrhea, flank pain, hematuria, fever or chills. Related Data Home Medications Medication Instructions Recorded Confirmed cyclosporine 0.05 % eye drops 1 drop EACH EYE Q12H 10/24/19 10/02/21 carvedilol 12.5 mg PO BID 03/09/21 10/02/21 hydralazine 25 mg PO BID 03/09/21 10/02/21 potassium chloride 20 meq PO DAILY 03/09/21 10/02/21 kzybxgyxuvl-hewevxuyy-hxkrajrp 1 inh INHALATION USEASDIRECTD 10/02/21 10/02/21 [Trelegy Ellipta] Allergies Allergy/AdvReac Type Severity Reaction Status Date / Time amiodarone Allergy Severe Unresponsiv Verified 10/02/21 10:07 e Ouzsgxq-RKP-MiQ Reductase Allergy Severe Muscle Pain Verified 10/02/21 10:07 Inhibitor [Wrihkif-Vxl-Skq Reductase Inhibitor] ciprofloxacin Allergy Mild Unknown Verified 10/02/21 10:07 cephalexin Allergy Unknown Rash Verified 10/02/21 10:07 nitrofurantoin Allergy Unknown hand Verified 10/02/21 10:07 swelling Review of Systems Review of Systems: CONSTITUTIONAL: Denies body aches, fever, chills, or sweats. CARDIOVASCULAR: Denies chest pain, palpitations, or edema. RESPIRATORY: Denies cough or dyspnea. GASTROINTESTINAL: Denies abdominal pain, nausea, vomiting, or diarrhea. GENITOURINARY: reports dysuria, frequency, urgency denies hematuria, flank pain SKIN: Denies rash, itching, or wounds. MUSCULOSKELETAL: Denies back pain or myalgia. 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 Her is durable power regulatory attorney for healthcare. She desires to be full code. She smoked half a pack a cigarettes per day for 40 years quit May
[2021-11-22 12:37] VITALS: BP 134/71; PULSE 68; RESP 16; TEMP 36.1; O2SAT 97
== END 2021-11-22 13:02 | disposition home or self-care (01) ==
PROVIDERS: Emergency Provider Nurse Practitioner Family
DX: N39.0 Urinary tract infection, site not specified (principal); Z87.891 Personal history of nicotine dependence; I48.0 Paroxysmal atrial fibrillation; M19.90 Unspecified osteoarthritis, unspecified site; I25.10 Atherosclerotic heart disease of native coronary artery without angina pectoris; K21.9 Gastro-esophageal reflux disease without esophagitis; E78.5 Hyperlipidemia, unspecified; I25.2 Old myocardial infarction; I13.0 Hypertensive heart and chronic kidney disease with heart failure and stage 1 through stage 4 chronic kidney disease, or unspecified chronic kidney disease; E11.22 Type 2 diabetes mellitus with diabetic chronic kidney disease; N18.4 Chronic kidney disease, stage 4 (severe); I50.32 Chronic diastolic (congestive) heart failure; Z79.4 Long term (current) use of insulin; E11.42 Type 2 diabetes mellitus with diabetic polyneuropathy; I34.0 Nonrheumatic mitral (valve) insufficiency
CPT/HCPCS: 81003; 87077; 87086; 87186; 99213; G0463

== ENCOUNTER 2021-12-05 11:18 | Emergency (ER) | payer MEDICARE, SELFPAY ==
--- NOTE | ~2021-12-05 | CT_ITS ---
EXAMINATION: CT abdomen pelvis wo con DATE: 12/05/2021 12:37 INDICATION: Left lower quadrant abdominal pain TECHNIQUE: Computed tomography (CT) of the abdomen and pelvis was performed without intravenous contr ast. The dose-length product (DLP) was 610.36 mGy-cm. Automated exposure control and iterative recons truction technique were employed. COMPARISON: 11/19/2016 FINDINGS: Cardiomegaly is noted. There is a mild pulmonary edema in the visualized lung bases. A mode rate-sized sliding hiatal hernia is present. The liver, spleen, gallbladder, pancreas, and adrenal gl ands are normal. There is a 5.8 cm mass of the right kidney lower pole, demonstrated to be a cyst on ultrasound. No pathologically enlarged abdominal or pelvic lymph nodes are identified. There is calci fied atherosclerosis of the aorta and many of the other arteries. Colonic diverticulosis is present w ithout evidence of diverticulitis. There is a small amount of ascites and a left inguinal hernia. The re is severe lumbar spondylosis. There is moderate to severe osteoarthritis of the hips. IMPRESSION: 1. Diverticulosis without evidence of diverticulitis. 2. Cardiomegaly with mild pulmonary edema. Reviewed, dictated and finalized at location A. MFITTER SUPERVISOR
[2021-12-05 11:30] VITALS: BP 176/78; PULSE 97; RESP 16; TEMP 36.4; O2SAT 94
--- NOTE | 2021-12-05 11:30 | ED.NAVMDI ---
HPI - Nausea/Vomiting/Diarrhea General Chief complaint: Nausea/Vomiting/Diarrhea Stated complaint: NAUSEA Time Seen by Provider: 12/05/21 11:23 Source: patient History of Present Illness HPI Narrative: Patient presents with not feeling well over the past couple days. She feels like her heart rate is going up and down she also reports nausea and vomiting she also reports some abdominal pain. Abdominal pain is achy, intermittent, no clear aggravating or alleviating factors give her the sensation of needing to vomit. She denies diarrhea but feels like she is constipated. She denies fevers or known sick contacts. Related Data Home Medications Medication Instructions Recorded Confirmed cyclosporine 0.05 % eye drops 1 drop EACH EYE Q12H 10/24/19 10/02/21 carvedilol 12.5 mg PO BID 03/09/21 10/02/21 hydralazine 25 mg PO BID 03/09/21 10/02/21 potassium chloride 20 meq PO DAILY 03/09/21 10/02/21 osvetpyewwu-nttunitev-heyxonla 1 inh INHALATION USEASDIRECTD 10/02/21 10/02/21 [Trelegy Ellipta] Allergies Allergy/AdvReac Type Severity Reaction Status Date / Time amiodarone Allergy Severe Unresponsiv Verified 10/02/21 10:07 e Yyjldmo-ZDK-KoH Reductase Allergy Severe Muscle Pain Verified 10/02/21 10:07 Inhibitor [Xxamdof-Jkx-Oys Reductase Inhibitor] ciprofloxacin Allergy Mild Unknown Verified 10/02/21 10:07 cephalexin Allergy Unknown Rash Verified 10/02/21 10:07 nitrofurantoin Allergy Unknown hand Verified 10/02/21 10:07 swelling Review of Systems Review of Systems: CONSTITUTIONAL: Denies fever, chills, or sweats. EYES: Denies visual changes, redness, or discharge. ENT: Denies rhinorrhea, congestion, sore throat, or otalgia. CARDIOVASCULAR: Denies chest pain, palpitations, or edema. RESPIRATORY: Denies cough or dyspnea. GASTROINTESTINAL: Patient reports abdominal pain nausea and vomiting GENITOURINARY: Denies dysuria or hematuria. SKIN: Denies rash or itching. MUSCULOSKELETAL: Denies back pain, joint pain, or myalgia. NEUROLOGIC: Denies headache, numbness, dizziness, or weakness. PSYCHIATRIC: Denies anxiety or depression. 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
--- NOTE | 2021-12-05 11:32 | ECG_ITS ---
Measurements Intervals [place] Rate: 67 P: 49 VA: 197 QRS: -20 QRSD: 134 T: 91 QT: 423 QTc: 448 Interpretive Statements SINUS RHYTHM INTRAVENTRICULAR CONDUCTION DELAY ANTEROSEPTAL INFARCT, AGE INDETERMINATE CONSIDER INFERIOR INFARCT, AGE INDETERMINATE BORDERLINE ST-T WAVE ABNORMALITY- HIGH LATERAL LEADS ABNORMAL ECG Electronically Signed On 12-05-2021 12:10:52 BLOCK SPLITTER OPERATOR by Clyde Rowell D.O.
[2021-12-05 11:36] LABS: Basophils Absolute Auto 0.1 K/mm3 (0.0-0.1); Basophils Percent Auto 0.6 % (0.2-1.2); Eosinophils Absolute Auto 0.6 K/mm3 (0-0.3); Eosinophils Percent Auto 6.2 % (0-4.4); Hematocrit 35.4 % (37.0-47.0); Hemoglobin 11.1 g/dL (12.0-15.0); Immature Granulocyte Absolute 0.03 K/mm3 (0.00-0.031); Immature Granulocyte Percent A 0.3 % (0-0.5); Lymphocytes Absolute Auto 1.44 K/mm3 (0.9-3.2); Lymphocytes Percent Auto 15.5 % (18.3-44.2); Mean Corpuscular HGB Conc 31.4 g/dl (32-36); Mean Corpuscular Hemoglobin 29.1 pg (26-34); Mean Corpuscular Volume 92.9 fl (80-100); Mean Platelet Volume 9.7 fl (7.4-10.4); Monocytes Absolute Auto 0.6 K/mm3 (0.1-0.6); Monocytes Percent Auto 6.1 % (2.6-8.5); Neutrophils Absolute Auto 6.6 K/mm3 (1.3-6.7); Neutrophils Percent Auto 71.3 % (45.5-73.1); Platelet Count Result 284 k/mm3 (150-375); Red Blood Count 3.81 M/mm3 (4.2-5.4); Red Cell Distribution Width 13.7 % (11.5-14.5); White Blood Count 9.3 K/mm3 (4.5-10.0)
[2021-12-05 11:38] VITALS: PULSE 93; RESP 19; O2SAT 94
[2021-12-05 11:45] VITALS: PULSE 68; RESP 23; O2SAT 95
[2021-12-05 11:46] VITALS: BP 163/92; PULSE 68; RESP 18; O2SAT 95
[2021-12-05 11:47] VITALS: PULSE 68; RESP 17; O2SAT 94
[2021-12-05] MEDS: SODIUM CHLORIDE 0.9% IV 1,000 ML 999 ML IV CONT (11:54)
[2021-12-05 12:07] LABS: Alanine Aminotransferase 7 U/L (4-35); Albumin Level 4.1 g/dL (3.5-5.1); Alkaline Phosphatase 74 U/L (38-126); Anion Gap 9 mmol/L (8-16); Aspartate Amino Transferase 21 U/L (14-36); Bilirubin,Total 0.5 mg/dL (0.2-1.3); Blood Urea Nitrogen 29 mg/dL (7-17); Calcium 9.1 mg/dL (8.4-10.2); Carbon Dioxide 22 mmol/L (22-30); Chloride 109 mmol/L (98-107); Estimated Glomerular Filt Rate 16; Glucose 125 mg/dL (65-110); Lipase 80 U/L (23-300); Potassium 4.3 mmol/L (3.4-5.0); Sodium 140 mmol/L (137-145)
[2021-12-05 13:54] LABS: Add Urine Microscopic? YES; Appearance Urine Clear (Clear); Bilirubin Urine Negative (Negative); Blood Urine Negative (Negative); Color Urine Straw (Yellow); Glucose Urine UA Negative (Negative); Ketones Urine Negative (Negative); Leukocyte Esterase Ur Negative LEU/UL (Negative); Mucus Urine Rare /lpf; Nitrate Urine Negative (Negative); Protein Urine 2+ mg/dL (Negative); RBC Urine 0-2 /hpf (0-2); Specific Grav Ur 1.009 (1.001-1.035); Squamous Epithelial Cell Urine Rare /hpf (Few); Urobilinogen Urine Negative mg/dL (<2.0); WBC Urine 0-3 /hpf
[2021-12-05 14:22] VITALS: BP 156/92; PULSE 88; RESP 18; TEMP 36.4; O2SAT 96
== END 2021-12-05 14:24 | disposition home or self-care (01) ==
PROVIDERS: Emergency Provider Emergency Medicine
DX: R11.0 Nausea (principal); R10.9 Unspecified abdominal pain; I48.0 Paroxysmal atrial fibrillation; I25.10 Atherosclerotic heart disease of native coronary artery without angina pectoris; I50.32 Chronic diastolic (congestive) heart failure; E11.22 Type 2 diabetes mellitus with diabetic chronic kidney disease; I13.0 Hypertensive heart and chronic kidney disease with heart failure and stage 1 through stage 4 chronic kidney disease, or unspecified chronic kidney disease; N18.4 Chronic kidney disease, stage 4 (severe); E11.21 Type 2 diabetes mellitus with diabetic nephropathy; D63.1 Anemia in chronic kidney disease; N25.0 Renal osteodystrophy; E78.5 Hyperlipidemia, unspecified; I34.0 Nonrheumatic mitral (valve) insufficiency; K21.9 Gastro-esophageal reflux disease without esophagitis; Z79.4 Long term (current) use of insulin; Z87.01 Personal history of pneumonia (recurrent); Z87.440 Personal history of urinary (tract) infections; Z87.891 Personal history of nicotine dependence; I45.9 Conduction disorder, unspecified; R94.31 Abnormal electrocardiogram [ECG] [EKG]; K57.90 Diverticulosis of intestine, part unspecified, without perforation or abscess without bleeding; I51.7 Cardiomegaly
CPT/HCPCS: 36415; 74176; 80053; 81001; 83690; 85025; 93005; 96360; 96361; 99284; J7030

== ENCOUNTER 2021-12-09 20:51 | Observation (INO) | payer MEDICARE, SELFPAY ==
[2021-12-09] VITALS (8 sets, daily range): BP systolic 135–142; BP diastolic 56–104; PULSE 67–69; RESP 18–28; TEMP 36.4; O2SAT 85–94
--- NOTE | ~2021-12-09 | CT_ITS ---
EXAMINATION: CT abdomen pelvis wo con DATE: 12/09/2021 23:43 INDICATION: Lower abdominal pain and cramping TECHNIQUE: Computed tomography (CT) of the abdomen and pelvis was performed without intravenous contr ast. The dose-length product (DLP) was 870.86 mGy-cm. Automated exposure control and iterative recons truction technique were employed. COMPARISON: 12/05/2021 FINDINGS: Cardiomegaly is noted. Small pleural effusions are present. There is smooth interlobular se ptal thickening of the visualized lung bases. A moderate-sized sliding hiatal hernia is noted. A smal l amount of gas is now seen in the left hepatic lobe, possible pneumobilia. The spleen, pancreas, and adrenal glands are normal. The gallbladder is distended. The enlarged common bile duct measures up t o 12 mm. A 5.8 cm cyst is again noted in the right kidney lower pole. No pathologically enlarged abdo carlos or pelvic lymph nodes are identified. There is a small volume of pelvic ascites which tracks in to a left inguinal hernia. Colonic diverticulosis is present. There is mild perisigmoid fat stranding adjacent to the proximal sigmoid colon. There is no free intraperitoneal gas or evidence of bowel ob struction. There is severe lumbar spondylosis and severe hip osteoarthritis. IMPRESSION: 1. Gallbladder distention which could reflect cholecystitis or fasting state. Correlate for right upp er quadrant tenderness. 2. Sigmoid diverticulosis with mild fat stranding adjacent to the proximal sigmoid colon, possible di verticulitis. 3. New gas in the left hepatic lobe, possibly pneumobilia of unclear etiology. 4. Cardiomegaly with pulmonary edema in the visualized lung bases. Reviewed, dictated and finalized at location F. GENCY GENERATOR MECHANIC IMPRESSION: 1. Gallbladder distention which could reflect cholecystitis or fasting state. C orrelate for right upper quadrant tenderness. 2. Sigmoid diverticulosis with mild fat stranding adjacent to the proximal sigm oid colon, possible diverticulitis. 3. New gas in the left hepatic lobe, possibly pneumobilia of unclear etiology. 4. Cardiomegaly with pulmonary edema in the visualized lung bases.
--- NOTE | 2021-12-09 21:41 | ED.ABDPAIN ---
HPI - Abdominal Pain General Chief Complaint: Abdominal Pain Stated Complaint: abdominal pain Time Seen by Provider: 12/09/21 21:11 Source: patient Mode of arrival: ambulatory Limitations: no limitations History of Present Illness HPI narrative: Patient is a 76-year-old female complaining of lower abdominal pain, 8 out of 10, dull, nonradiating accompanied by nausea and constipation x1 week. Patient states that she was seen here last week for the same complaints, had labs and CT scan done and was told that everything is normal. Patient denies any chest pain, shortness of breath, urinary symptoms, fever or chills. Related Data Home Medications Medication Instructions Recorded Confirmed cyclosporine 0.05 % eye drops 1 drop EACH EYE Q12H 10/24/19 12/08/21 carvedilol 12.5 mg PO BID 03/09/21 12/08/21 hydralazine 25 mg PO BID 03/09/21 12/08/21 potassium chloride 20 meq PO DAILY 03/09/21 12/08/21 huwkenpkdzd-tpobfqkaj-qkrkmarq 1 inh INHALATION USEASDIRECTD 10/02/21 12/08/21 [Trelegy Ellipta] Allergies Allergy/AdvReac Type Severity Reaction Status Date / Time amiodarone Allergy Severe Unresponsiv Verified 12/08/21 10:32 e Cgenmio-ORU-WsQ Reductase Allergy Severe Muscle Pain Verified 12/08/21 10:32 Inhibitor [Wamhsly-Tup-Qei Reductase Inhibitor] ciprofloxacin Allergy Mild Unknown Verified 12/08/21 10:32 cephalexin Allergy Unknown Rash Verified 12/08/21 10:32 nitrofurantoin Allergy Unknown hand Verified 12/08/21 10:32 swelling Review of Systems Review of Systems: All systems reviewed & are unremarkable except as noted in HPI and below Constitutional: Constitutional: Denies body ache(s), Denies chills, Denies excessive sweating, Denies fatigue, Denies fever(s), Denies headache(s), Denies lethargy, Denies malaise, Denies weakness and Denies weight loss Eyes: Eyes: Denies blurry vision, Denies change in vision and Denies loss of vision ENT: Denies dizziness, Denies ear discharge, Denies headache(s), Denies lip swelling, Denies epistaxis, Denies nasal congestion, Denies neck pain, Denies throat swelling and Denies tongue swelling Cardiovascular: Cardiovascular: Denies chest pain, Denies chest pain at rest, Denies chest pain with activity, Denies diaphoresis, Denies rapid heart rate, Denies edema, Denies irregular heart rhythm, Denies lightheadedness, Denies palpitations, Denies dyspnea and Denies dyspnea on exertion Respiratory: Respiratory: Denies chest congestion, Denies cough, Denies hemoptysis, Denies dyspnea and Denies dyspnea on exertion Gastrointestinal: Gastrointestinal: Denies melena, Denies hematochezia, Denies diarrhea, Denies nausea, Denies vomiting and Denies hematemesis Musculoskeletal: Musculoskeletal: Denies abnormal gait, Denies deformity, Denies joint swelling, Denies limited range of motion, Denies neck pain and Denies numbness Neurologic: Denies Abnormal speech present, Denies abnormal gait, Denies confusion, Denies dizziness, Denies headache(s), Denies focal weakness, Denies loss of vision, Denies numbness, Denies Other visual disturbances, Denies Sensory deficit (Neuro) and Denies weakness Psychiatric: Psychiatric: Denies confusion, Denies depression, Denies auditory hallucinations, Denies homicidal ideation and Denies suicidal ideation Endocrine: Endocrine: Denies cold intolerance, Denies excessive sweating, Denies fatigue, Denies heat intolerance and Denies palpitations Hematologic/Lymphatic: Hematologic/Lymphatic: Denies easy bleeding and Denies easy bruising Allergic/Immunologic: Allergic/Immunologic: Denies lip swelling, Denies throat swelling and Denies tongue swelling PMFSH Past Medical History Medical History A-fib Paroxysmal Anemia Anxiety Arthritis Bronchitis CAD (coronary artery disease) 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 Chronic diastolic CHF (congestive heart failure) Echo Rajiv
[2021-12-09] MEDS: LACTATED RINGERS 1,000 ML 999 ML IV CONT (22:22)
[2021-12-09] MEDS: PROMETHAZINE HCL 25 MG/ML AMPUL 12.5 MG IV PUSH (22:23)
[2021-12-09 23:13] LABS: Basophils Absolute Auto 0.1 K/mm3 (0.0-0.1); Basophils Percent Auto 0.5 % (0.2-1.2); Eosinophils Absolute Auto 0.5 K/mm3 (0-0.3); Eosinophils Percent Auto 4.4 % (0-4.4); Hemoglobin 10.5 g/dL (12.0-15.0); Immature Granulocyte Absolute 0.03 K/mm3 (0.00-0.031); Immature Granulocyte Percent A 0.3 % (0-0.5); Lymphocytes Absolute Auto 1.01 K/mm3 (0.9-3.2); Lymphocytes Percent Auto 9.2 % (18.3-44.2); Mean Corpuscular HGB Conc 31.8 g/dl (32-36); Mean Corpuscular Hemoglobin 29.9 pg (26-34); Mean Platelet Volume 10.1 fl (7.4-10.4); Monocytes Absolute Auto 0.7 K/mm3 (0.1-0.6); Monocytes Percent Auto 6.5 % (2.6-8.5); Neutrophils Absolute Auto 8.7 K/mm3 (1.3-6.7); Neutrophils Percent Auto 79.1 % (45.5-73.1); Platelet Count Result 276 k/mm3 (150-375); Red Blood Count 3.51 M/mm3 (4.2-5.4); Red Cell Distribution Width 13.7 % (11.5-14.5)
[2021-12-09 23:19] LABS: Alanine Aminotransferase 8 U/L (4-35); Albumin Level 3.7 g/dL (3.5-5.1); Alkaline Phosphatase 81 U/L (38-126); Anion Gap 6 mmol/L (8-16); Aspartate Amino Transferase 16 U/L (14-36); Bilirubin,Total 0.6 mg/dL (0.2-1.3); Blood Urea Nitrogen 36 mg/dL (7-17); Calcium 8.3 mg/dL (8.4-10.2); Carbon Dioxide 22 mmol/L (22-30); Chloride 108 mmol/L (98-107); Estimated CRCL calculation 15 ml/min; Estimated Glomerular Filt Rate 17; Glucose 135 mg/dL (65-110); Lipase 65 U/L (23-300); Potassium 4.4 mmol/L (3.4-5.0); Sodium 136 mmol/L (137-145)
[2021-12-09 23:20] LABS: Lactic Acid Reflex 0.8 mmol/L (0.7-2.1)
[2021-12-10] VITALS (17 sets, daily range): BP systolic 141–158; BP diastolic 20–66; PULSE 59–73; RESP 16–28; TEMP 36.1–36.4; O2SAT 95–99; BMI 25.0
--- NOTE | 2021-12-10 | ECHO_ITS ---
Patient Info Name: Jennifer Schofield Age: 76 years : 1945 Gender: Female Ht: 66 in Wt: 151 lbs BSA: 1.79 m2 HR: 73 bpm BP: 155 / 56 mmHg Heart Rhythm: Sinus Rhythm Technical Quality: Fair Exam Date: 12/10/2021 8:17 AM Exam Location: [facility] Patient Status: Outpatient Admit Date: 12/10/2021 Staff Ordering Physician: Cherri Steinberg M.A., MD [id number] Architect: Belinda Holley RDCS Attending Provider: Cherri Steinberg M.A., MD Referring Physician: William REYES; Exam Type: CA echo doppler color flow Study Info Indications - Pulmonary edema Complete two-dimensional, color flow and Doppler transthoracic echocardiogram is performed. Summary 1. Complete two-dimensional, color flow and Doppler transthoracic echocardiogram is performed. 2. There is mild concentric increased left ventricular wall thickness. 3. Left ventricular systolic function is normal, estimated at 60-65%. 4. Left atrial chamber dimension is moderately enlarged. 5. The annuloplasty ring prosthetic mitral valve leaflefts are Empty. 6. There is trace regurgitation of the annuloplasty ring prosthetic mitral valve. 7. Compared with exam from April of last year there is no appreciable difference. Left Ventricle Left ventricular chamber dimension is normal. Left ventricular systolic function is normal, estimated at 60-65%. There is mild concentric increased left ventricular wall thickness. The left ventricular diastolic function is grade I diastolic dysfunction. Right Ventricle Right ventricular chamber dimension is normal. Left Atria Left atrial chamber dimension is moderately enlarged. Right Atria Right atrial chamber dimension is normal. Aortic Valve The aortic valve is normal. Pulmonic Valve The pulmonic valve is normal. Mitral Valve The annuloplasty ring prosthetic mitral valve leaflefts are Empty. There is trace regurgitation of the annuloplasty ring prosthetic mitral valve. Tricuspid Valve The tricuspid valve leaflets are normal. Pericardium/Pleural The pericardium appears normal. Aorta The aortic root size at the sinus of Valsalva is normal. Left Ventricular Outflow Tract Name Value Normal LVOT 2D LVOT Diameter 2.0 cm LVOT Doppler LVOT Peak Gradient 2 mmHg LVOT Mean Gradient 1 mmHg LVOT VTI 19 cm LVOT VTI/AV VTI Ratio 0.7 LVOT Stroke Volume 57 ml LVOT CO 3.4 l/min LVOT CI 1.9 l/min/m2 Pulmonic Valve Name Value Normal RVOT Doppler RVOT Peak Gradient 2 mmHg PV Doppler PV Peak Gradient 2 mmHg Garo
--- NOTE | 2021-12-10 00:59 | PM.IMHP ---
H&P: HPI History of Present Illness Date/Time: 12/10/21 00:59 Chief Complaint: Abdominal pain Narrative: 76 years old female with past medical history of hypertension AFib myocardial infarction CHF presented to the hospital with abdominal pain started 1 week ago generalized severe worsening gradually associated with nausea and vomiting and able to tolerate food patient visited the ER 4 days ago where she was evaluated and was sent home CT scan was repeated today concern for cholecystitis versus fasting state on the CT scan also concern of diverticulitis also CT scan showed pulmonary edema patient was admitted to the hospital for further evaluation and treatment Review of Systems Review of Systems: All systems reviewed & are unremarkable except as noted in HPI and below PMFSH Past Medical History Medical History A-fib Paroxysmal Anemia Anxiety Arthritis Bronchitis CAD (coronary artery disease) 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 Her is durable power disability attorney for healthcare. She desires to be full code. She smoked half a pack a cigarettes per day for 40 years quit March 14, 2014. No illicit drug use but does occasionally drink alcohol. 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 She has 2 children and 2 grandchildren Smoking packs per day: 0.5 Smoking cigarettes per day: 10.0 Years smoked: 40 Smoking pack-years: 20.00 Smoking status: Former smoker Tobacco type: cigarettes Second hand tobacco smoke exposure: Yes Smoking end date: 10/18/13 Additional smoking assessment comments: Occasional smoker for 40 years Alcohol intake: never Substance use: never Substance use type: does not use Gender identity (if verbalized by the patient): Female Sexual Orientation (if Verbalized by the Patient): Straight or Heterosexual Spiritual care concerns: No Agree to blood products: Yes Meds Home Medications and Allergies Home Medications Medication Instructions Recorded Confirmed Type cyclosporine 0.05 % eye drops 1 drop EACH EYE Q12H 10/24/19 12/08/21 History diltiazem HCl 240 mg PO DAILY #30 cap 12/30/19 12/08/21 Rx carvedilol 12.5 mg PO BID 03/09/21 12/08/21 History hydralazine 25 mg PO BID 03/09/21 12/08/21 History potassium chloride 20 meq PO DAILY 03/09/21 12/08/21
[2021-12-10] MEDS: FUROSEMIDE INJ 40 MG/4 ML VIAL IV PUSH (01:48)
[2021-12-10 02:31] LABS: NT Pro B Type Natriuretic Pept 3690 pg/mL (5-100)
[2021-12-10 02:32] LABS: NT Pro B Type Natriuretic Pept 3800 pg/mL (5-100)
[2021-12-10] MEDS: MORPHINE SULFATE (*CRX) 2 MG/ML INJ IV PUSH (02:37)
--- NOTE | 2021-12-10 03:25 | ADMGEN ---
This patient, Jennifer Schofield, was admitted to [facility] Surg Room 327-01. Patient/family oriented to hospital policies and general routines including ID bracelet, bed and alarms, visiting hours, pain management, procedures, bathroom and other care routines, personal items, smoking policy, room service/diet, and visiting hours. Information on how to activate the Rapid Response Team has been discussed. Patient/Family are encouraged to report perceived risks to care and to ask questions if they do not understand what they are told or what they should do.
[2021-12-10] MEDS: ACETAMINOPHEN 325 MG TABLET 650 MG PO ×3 (03:56→19:48)
[2021-12-10 06:35] LABS: Basophils Percent Auto 0.3 % (0.2-1.2); Eosinophils Absolute Auto 0.1 K/mm3 (0-0.3); Eosinophils Percent Auto 1.5 % (0-4.4); Hematocrit 29.6 % (37.0-47.0); Hemoglobin 9.4 g/dL (12.0-15.0); Immature Granulocyte Absolute 0.03 K/mm3 (0.00-0.031); Immature Granulocyte Percent A 0.3 % (0-0.5); Lymphocytes Percent Auto 4.3 % (18.3-44.2); Mean Corpuscular HGB Conc 31.8 g/dl (32-36); Mean Corpuscular Hemoglobin 29.2 pg (26-34); Mean Corpuscular Volume 91.9 fl (80-100); Mean Platelet Volume 9.8 fl (7.4-10.4); Monocytes Absolute Auto 0.2 K/mm3 (0.1-0.6); Monocytes Percent Auto 2.1 % (2.6-8.5); Neutrophils Absolute Auto 8.5 K/mm3 (1.3-6.7); Neutrophils Percent Auto 91.5 % (45.5-73.1); Platelet Count Result 244 k/mm3 (150-375); Red Blood Count 3.22 M/mm3 (4.2-5.4); Red Cell Distribution Width 13.5 % (11.5-14.5); White Blood Count 9.3 K/mm3 (4.5-10.0)
[2021-12-10 06:41] LABS: Glucose Point of Care 118 mg/dl (65-105)
--- NOTE | 2021-12-10 07:07 | WPDGICN ---
Assessment and Plan Assessment and plan (1) Abdominal pain: Qualifiers: Abdominal location: unspecified location Qualified Code(s): R10.9 - Unspecified abdominal pain Code(s): R10.9 - Unspecified abdominal pain Status: Acute Assessment and Plan: clinically this does sound like diverticulitis including the sensation of constipation the tenderness in left lower quadrant and the findings on CT scan which however not dramatic. ( personally reviewed by me) I agree with continuing treatment for presumed diverticulitis. We will then schedule her for an outpatient colonoscopy in about 3 weeks when inflammation has subsided. (2) Chronic kidney disease, stage 4 (severe): Code(s): N18.4 - Chronic kidney disease, stage 4 (severe) Status: Acute Assessment and Plan: Her creatinine is 2.7. She has had kidney disease for few years (3) Colon polyps: Code(s): K63.5 - Polyp of colon Status: Acute Assessment and Plan: I removed a tubular adenoma when I did a colonoscopy on her about 6 years ago (4) Anemia: Code(s): D64.9 - Anemia, unspecified Status: Acute Assessment and Plan: she has had some chronic anemia but now her hemoglobin is down to 9.4 versus 11 2 weeks ago. There is however no evidence of gastrointestinal bleeding GI Consult Note Consult date/time: 12/10/21 07:07 HPI: Jennifer Schofield is a 76 year old female who was admitted yesterday evening to the emergency room. She was having great deal of pain in the lower abdomen, almost reminding her of labor pains. The pain was primarily on the left side. She had not had a bowel movement for 4 days. Now that she has had a bowel movement last night she is feeling a bit better but still runner. She had no vomiting at home. She been to the emergency room a couple days ago and was sent home without any particular advice or medication. since ED visit. Zofran has not helped. She notes that she thinks symptoms started around . She does not find correlation between eating and abd pain, but does note feeling nauseous after eating. Her last BM was 12/05; she is passing flatus but is also belching. She has had difficult time keeping foods down and has had aversion to food. Pt states pain initially was LLQ when presenting to ED, but now is generally in her upper abdomen. Of note, pt was given Augmentin x 10 days earlier this month for UTI but was switched to Bactrim due to persisting symptoms; she finished abx on the Wednesday prior to symptoms starting. Now CT scan shows some stranding around the sigmoid colon suggestive of diverticulitis. Also the gallbladder is somewhat distended but liver enzymes are normal. She has been started on antibiotics for presumed diverticulitis. 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, with long-term current use o
[2021-12-10 07:21] LABS: Anisocytosis 1+ (NORMAL); Platelet Estimate Adequate (Adequate)
[2021-12-10 07:22] LABS: Ovalocytes 2+ (NORMAL)
[2021-12-10] MEDS: AZTREONAM 1 GM in DEXTROSE 5% IN WATER 50 ML 100 ML IVPB ×2 (09:35→16:47)
[2021-12-10] MEDS: HEPARIN SODIUM 5,000 UNITS/ML VIAL 5000 UNITS SUB-Q ×2 (09:58→20:01)
[2021-12-10 12:16] LABS: Glucose Point of Care 98 mg/dl (65-105)
--- NOTE | 2021-12-10 14:51 | PC.NURSE ---
On 12/10/21, the student, Татьяна Deluna, provided care and completed [facility] documentation on this patient. I have reviewed the student's documentation and agree with the findings.
--- NOTE | 2021-12-10 16:32 | PCDIET ---
Pt screened in for MST 2. Visited with pt who reports that she has lost 15lbs over the last 3 months and has had a decreased appetite. Past weight history shows that pt weighed approximately 152lb reported on 10/02/21, current weight is approximately 155lb reported on 12/10/21, showing a weight gain of 3lbs over the last 2 months. Current nutrition is a clear liquid diet with reported intake of 75%. Recommend adding a dietary supplement of Glucerna Shake BID to provide an additional 220kcal and 10g of protein to increase caloric intake once diet is advanced. Agree with diet orders at this time. No nutritional interventions at this time. Will follow up in 7 days if pt has not been d/c.
[2021-12-10 16:49] LABS: Glucose Point of Care 137 mg/dl (65-105)
--- NOTE | 2021-12-10 20:03 | PM.IMPN ---
Progress Note: A&P Assessment and Plan (1) Chronic kidney disease, stage 4 (severe): Code(s): N18.4 - Chronic kidney disease, stage 4 (severe) Status: Acute Assessment and Plan: Avoid nephrotoxic medication stable follow CMP (2) CHF exacerbation: Qualifiers: Heart failure type: unspecified Qualified Code(s): I50.9 - Heart failure, unspecified Code(s): I50.9 - Heart failure, unspecified Status: Acute Assessment and Plan: Probable acute on top of chronic diastolic CHF exacerbation associated with pulmonary edema Check BMP Check echo Give 1 dose of IV Lasix Re-evaluate in a.m. (3) Type 2 diabetes mellitus with diabetic nephropathy, with long-term current use of insulin: Code(s): E11.21 - Type 2 diabetes mellitus with diabetic nephropathy; Z79.4 - [facility] (current) use of insulin Status: Acute Assessment and Plan: Insulin sliding scale (4) History of mitral valve repair: Code(s): Z98.890 - Other specified postprocedural states Status: Acute Assessment and Plan: Follow-up with PCP follow echo results (5) HTN (hypertension): Qualifiers: Hypertension type: unspecified Qualified Code(s): I10 - Essential (primary) hypertension Code(s): I10 - Essential (primary) hypertension Status: Chronic Assessment and Plan: Pending reconciliation of home medication (6) A-fib: Qualifiers: Atrial fibrillation type: persistent (not longstanding) Qualified Code(s): I48.19 - Other persistent atrial fibrillation Code(s): I48.91 - Unspecified atrial fibrillation Status: Chronic Assessment and Plan: Pending reconciliation of home medication (7) Abdominal pain: Code(s): R10.9 - Unspecified abdominal pain Status: Acute Assessment and Plan: Multifactorial probable related to acute diverticulitis concern for cholecystitis patient has allergy to Keflex also has not able to tolerate Cipro Continue azactam Subjective Date/time seen: 12/10/21 20:03 Narrative:76 years old female with past medical history of hypertension AFib myocardial infarction CHF presented to the hospital with abdominal pain started 1 week ago generalized severe worsening gradually associated with nausea and vomiting and able to tolerate food patient visited the ER 4 days ago where she was evaluated and was sent home CT scan was repeated today concern for cholecystitis versus fasting state on the CT scan also concern of diverticulitis also CT scan showed pulmonary edema patient was admitted to the hospital for further evaluation and treatment S: Patient was examined at the bedside. was present during the encounter. She is feeling a little bit better. She did not have any complaints. Review of Systems Review of Systems: All systems reviewed & are unremarkable except as noted in HPI and below Exam Narrative: Const: General: cooperative HENMT: Head: normal to inspection, normocephalic and atraumatic Eyes: General: appearance normal, both eyes and all related structures Pupils: Equal, round and reactive pupils present EOM: EOMs intact bilaterally Neck: Neck: normal visual inspection, full ROM, no lymphadenopathy and no meningeal signs Chest: Chest palpation & inspection: normal inspection of the chest Resp: Effort & Inspection: normal respiratory effort, able to speak in complete sentences, no respiratory distress and not tachypneic Auscultation: clear to auscultation bilaterally, no crackles, no rales, no rhonchi and no wheezes Cardio: Rate: regular rate Rhythm: regular rhythm GI: Generalized tenderness no guarding : General: Yes no CVA tenderness Back/Spine/Pelvis: Back: no CVA tenderness Skin: General skin exam: no rashes or lesions noted Neuro: Alert oriented moved all extremities Extrem: General: full ROM, capillary refill normal and edema bilateral Psych: Appearance
[2021-12-10] MEDS: ALBUTEROL SULFATE NEB 2.5 MG/3 ML INH (20:50)
[2021-12-10 21:45] LABS: Glucose Point of Care 133 mg/dl (65-105)
[2021-12-10] MEDS: carvediloL 12.5 MG TABLET PO (22:27)
[2021-12-10] MEDS: cycloSPORINE 0.4 ML OPHTH SOLUTION 1 DROP EACH EYE (22:27)
[2021-12-10] MEDS: hydrALAZINE HCL 25 MG TABLET PO (22:27)
[2021-12-11] VITALS (11 sets, daily range): BP systolic 112–162; BP diastolic 47–56; PULSE 58–75; RESP 16–20; TEMP 36.2–36.5; O2SAT 94–98
[2021-12-11] MEDS: AZTREONAM 1 GM in DEXTROSE 5% IN WATER 50 ML 100 ML IVPB ×2 (00:48→08:09)
[2021-12-11] MEDS: ALBUTEROL SULFATE NEB 2.5 MG/0.5 ML INH 5 MG INHALATION ×2 (02:13→09:23)
--- NOTE | 2021-12-11 06:49 | WPDGIPROGNO ---
Progress Note: A&P Assessment and Plan (1) Abdominal pain: Qualifiers: Abdominal location: unspecified location Qualified Code(s): R10.9 - Unspecified abdominal pain Code(s): R10.9 - Unspecified abdominal pain Status: Acute Assessment and Plan: 12/10 clinically this does sound like diverticulitis including the sensation of constipation the tenderness in left lower quadrant and the findings on CT scan which however not dramatic. ( personally reviewed by me) I agree with continuing treatment for presumed diverticulitis. We will then schedule her for an outpatient colonoscopy in about 3 weeks when inflammation has subsided. 12/11 Because she is feeling much better I think we can advance her diet and switch her to oral antibiotics. I will have her come in for colonoscopy in 3 weeks to rule out other pathology. (2) Chronic kidney disease, stage 4 (severe): Code(s): N18.4 - Chronic kidney disease, stage 4 (severe) Status: Acute Assessment and Plan: Her creatinine is 2.7. She has had kidney disease for few years (3) Colon polyps: Code(s): K63.5 - Polyp of colon Status: Acute Assessment and Plan: I removed a tubular adenoma when I did a colonoscopy on her about 6 years ago . I told her that even if she had not developed diverticulitis, it would be time for her to have a follow-up colonoscopy (4) Anemia: Code(s): D64.9 - Anemia, unspecified Status: Acute Assessment and Plan: she has had some chronic anemia but now her hemoglobin is down to 9.4 versus 11 2 weeks ago. There is however no evidence of gastrointestinal bleeding12/11 to these hemoglobin level is pending but she has not seen any blood in her stools. Subjective Date/time seen: 12/11/21 06:49 today she states he feels much better. She had small soft stools yesterday. There is no blood in her stools. The tenderness is improved. She is hungry. Review of Systems Review of Systems: All systems reviewed & are unremarkable except as noted in HPI and below Exam Const: General: alert Orientation/consciousness: patient oriented x3 Resp: Auscultation: clear to auscultation bilaterally Cardio: Rhythm: regular rhythm GI: Inspection: normal to inspection GI Palp: Yes Soft to palpation and Yes Tenderness to palpation present (GI) ( Minimal left lower quadrant tenderness) Auscultation: normal bowel sounds Neuro: General: patient oriented x3 Objective Data Vital Signs Vital Signs: Vital Signs - 24 hr 12/10/21 08:00 12/10/21 09:15 12/10/21 09:49 Temperature 36.2 C L Pulse Rate 62 63 Respiratory Rate 20 Blood Pressure 143/20 H Pulse Oximetry 98 98 12/10/21 10:35 12/10/21 12:39 12/10/21 14:11 Temperature 36.2 C L 36.2 C L Pulse Rate 60 59 L 64 Respiratory Rate 16 28 H Blood Pressure 148/52 H 141/56 H Pulse Oximetry 97 98 12/10/21 16:00 12/10/21 20:00 12/10/21 21:00 Temperature Pulse Rate 59 L 62 62 Respiratory Rate 20 20 Blood Pressure Pulse Oximetry 99 12/10/21 21:10 12/10/21 21:39 12/10/21 21:50 Temperature 36.4 C L Pulse Rate 62 63 62 Respiratory Rate 20 16 20 Blood Pressure 158/64 H Pulse Oximetry 99 99 12/10/21 22:27 12/11/21 00:00 12/11/21 02:20 Temperature Pulse Rate 62 61 62 Respiratory Rate 20 Blood Pressure Pulse Oximetry 12/11/21 02:30 12/11/21 06:00 Temperature 36.5 C Pulse Rate 62 60 Respiratory Rate 20 16 Blood Pressure 162/53 H Pulse Oximetry 98 Intake/Output Intake/Output: Intake & Output 12/08/21 12/09/21 12/10/21 12/11/21 23:59 23:59 23:59 23:59 Intake Total 1100 990 170 Output Total 200 Balance 1100 790 170 Meds/Results Medications: Active Medications Generic Name Dose Route Start Last Admin Trade Name Freq PRN Reason Stop Dose Admin Acetaminophen 650 mg 12/10/21 03:34 12/10/21 19:48 Acetaminophen 325 Mg Tablet PO 650 mg Q6H PRN Administration
[2021-12-11 06:52] LABS: Basophils Percent Auto 0.5 % (0.2-1.2); Eosinophils Absolute Auto 0.7 K/mm3 (0-0.3); Eosinophils Percent Auto 11.3 % (0-4.4); Hematocrit 30.2 % (37.0-47.0); Hemoglobin 9.5 g/dL (12.0-15.0); Immature Granulocyte Absolute 0.01 K/mm3 (0.00-0.031); Immature Granulocyte Percent A 0.2 % (0-0.5); Lymphocytes Absolute Auto 1.64 K/mm3 (0.9-3.2); Lymphocytes Percent Auto 27.3 % (18.3-44.2); Mean Corpuscular HGB Conc 31.5 g/dl (32-36); Mean Corpuscular Hemoglobin 29.7 pg (26-34); Mean Corpuscular Volume 94.4 fl (80-100); Monocytes Absolute Auto 0.7 K/mm3 (0.1-0.6); Monocytes Percent Auto 10.8 % (2.6-8.5); Neutrophils Percent Auto 49.9 % (45.5-73.1); Platelet Count Result 257 k/mm3 (150-375); Red Cell Distribution Width 13.8 % (11.5-14.5)
[2021-12-11 07:07] LABS: Alanine Aminotransferase 6 U/L (4-35); Albumin Level 3.2 g/dL (3.5-5.1); Alkaline Phosphatase 62 U/L (38-126); Anion Gap 5 mmol/L (8-16); Aspartate Amino Transferase 16 U/L (14-36); Bilirubin,Total 0.4 mg/dL (0.2-1.3); Blood Urea Nitrogen 32 mg/dL (7-17); Calcium 7.9 mg/dL (8.4-10.2); Carbon Dioxide 26 mmol/L (22-30); Chloride 107 mmol/L (98-107); Estimated CRCL calculation 16 ml/min; Estimated Glomerular Filt Rate 18; Glucose 83 mg/dL (65-110); Sodium 138 mmol/L (137-145)
[2021-12-11] MEDS: FUROSEMIDE 20 MG TABLET PO (08:09)
[2021-12-11] MEDS: EZETIMIBE 10 MG TABLET PO (08:09)
[2021-12-11] MEDS: cycloSPORINE 0.4 ML OPHTH SOLUTION 1 DROP EACH EYE (08:09)
[2021-12-11] MEDS: POTASSIUM CHLORIDE 20 MEQ TABLET.ER PO (08:09)
[2021-12-11] MEDS: hydrALAZINE HCL 25 MG TABLET PO ×2 (08:09→17:02)
[2021-12-11] MEDS: carvediloL 12.5 MG TABLET PO ×2 (08:09→20:06)
[2021-12-11] MEDS: HEPARIN SODIUM 5,000 UNITS/ML VIAL 5000 UNITS SUB-Q (08:10)
[2021-12-11 08:40] LABS: Glucose Point of Care 84 mg/dl (65-105)
[2021-12-11] MEDS: ACETAMINOPHEN 325 MG TABLET 650 MG PO ×2 (09:05→20:13)
--- NOTE | 2021-12-11 10:23 | PM.IMPN ---
Progress Note: A&P Assessment and Plan (1) Nausea & vomiting: Qualifiers: Vomiting type: unspecified Qualified Code(s): R11.2 - Nausea with vomiting, unspecified Code(s): R11.2 - Nausea with vomiting, unspecified Status: Acute Assessment and Plan: Patient is improving on clear liquid diet (2) Acute diverticulitis: Code(s): K57.92 - Diverticulitis of intestine, part unspecified, without perforation or abscess without bleeding Status: Acute Assessment and Plan: My diverticulitis. Continue antibiotics. She will be switched to oral antibiotic today. Per GI, plan is for colonoscopy as an outpatient 3 weeks later. (3) Chronic kidney disease, stage 4 (severe): Code(s): N18.4 - Chronic kidney disease, stage 4 (severe) Status: Acute Assessment and Plan: Unknown baseline kidney function. Based on chart review, she appears to be at her baseline. Avoid nephrotoxic medication stable follow CMP (4) CHF exacerbation: Qualifiers: Heart failure type: unspecified Qualified Code(s): I50.9 - Heart failure, unspecified Code(s): I50.9 - Heart failure, unspecified Status: Acute Assessment and Plan: Probable acute on top of chronic diastolic CHF exacerbation associated with pulmonary edema Check BMP Check echo Give 1 dose of IV Lasix Re-evaluate in a.m. (5) Type 2 diabetes mellitus with diabetic nephropathy, with long-term current use of insulin: Code(s): E11.21 - Type 2 diabetes mellitus with diabetic nephropathy; Z79.4 - [facility] (current) use of insulin Status: Acute Assessment and Plan: Insulin sliding scale (6) History of mitral valve repair: Code(s): Z98.890 - Other specified postprocedural states Status: Acute Assessment and Plan: Follow-up with PCP follow echo results (7) HTN (hypertension): Qualifiers: Hypertension type: unspecified Qualified Code(s): I10 - Essential (primary) hypertension Code(s): I10 - Essential (primary) hypertension Status: Chronic Assessment and Plan: Pending reconciliation of home medication (8) A-fib: Qualifiers: Atrial fibrillation type: persistent (not longstanding) Qualified Code(s): I48.19 - Other persistent atrial fibrillation Code(s): I48.91 - Unspecified atrial fibrillation Status: Chronic Assessment and Plan: Pending reconciliation of home medication (9) Abdominal pain: Code(s): R10.9 - Unspecified abdominal pain Status: Acute Assessment and Plan: Multifactorial probable related to acute diverticulitis concern for cholecystitis patient has allergy to Keflex also has not able to tolerate Cipro Continue azactam Subjective Date/time seen: 12/11/21 10:23 S: Patient was seen examined at the bedside. She is doing better. She has been tolerating you clear liquid diet, which will advance to low residue diet Review of Systems Review of Systems: All systems reviewed & are unremarkable except as noted in HPI and below Exam Narrative: Const: General: cooperative HENMT: Head: normal to inspection, normocephalic and atraumatic Eyes: General: appearance normal, both eyes and all related structures Pupils: Equal, round and reactive pupils present EOM: EOMs intact bilaterally Neck: Neck: normal visual inspection, full ROM, no lymphadenopathy and no meningeal signs Chest: Chest palpation & inspection: normal inspection of the chest Resp: Effort & Inspection: normal respiratory effort, able to speak in complete sentences, no respiratory distress and not tachypneic Auscultation: clear to auscultation bilaterally, no crackles, no rales, no rhonchi and no wheezes Cardio: Rate: regular rate Rhythm: regular rhythm GI: Generalized tenderness no guarding : General: Yes no CVA tenderness Back/Spine/Pelvis: Back: no CVA tenderness Skin: General skin exam: no rash
[2021-12-11 11:56] LABS: Glucose Point of Care 105 mg/dl (65-105)
[2021-12-11] MEDS: metroNIDAZOLE 250 MG TABLET 500 MG PO ×2 (12:19→20:05)
[2021-12-11] MEDS: CIPROFLOXACIN 500 MG TAB PO (12:19)
[2021-12-11 16:01] LABS: Glucose Point of Care 110 mg/dl (65-105)
[2021-12-11] MEDS: CIPROFLOXACIN 250 MG TABLET PO (20:05)
[2021-12-11 21:17] LABS: Glucose Point of Care 176 mg/dl (65-105)
[2021-12-12] MEDS: metroNIDAZOLE 250 MG TABLET 500 MG PO ×2 (05:01→14:33)
[2021-12-12 08:22] LABS: Glucose Point of Care 96 mg/dl (65-105)
[2021-12-12 09:00] VITALS: PULSE 68
[2021-12-12] MEDS: carvediloL 12.5 MG TABLET PO (09:00)
[2021-12-12] MEDS: CIPROFLOXACIN 250 MG TABLET PO (09:01)
[2021-12-12] MEDS: FUROSEMIDE 20 MG TABLET PO (09:02)
[2021-12-12] MEDS: hydrALAZINE HCL 25 MG TABLET PO (09:02)
[2021-12-12] MEDS: HEPARIN SODIUM 5,000 UNITS/ML VIAL 5000 UNITS SUB-Q (09:02)
[2021-12-12] MEDS: cycloSPORINE 0.4 ML OPHTH SOLUTION 1 DROP EACH EYE (09:02)
[2021-12-12] MEDS: EZETIMIBE 10 MG TABLET PO (09:02)
[2021-12-12] MEDS: POTASSIUM CHLORIDE 20 MEQ TABLET.ER PO (09:02)
[2021-12-12 14:00] VITALS: BP 110/62; PULSE 80; RESP 19; TEMP 36.2; O2SAT 95
--- NOTE | 2021-12-12 16:15 | PM.IMPN ---
Progress Note: A&P Assessment and Plan (1) Nausea & vomiting: Qualifiers: Vomiting type: unspecified Qualified Code(s): R11.2 - Nausea with vomiting, unspecified Code(s): R11.2 - Nausea with vomiting, unspecified Status: Acute Assessment and Plan: Patient is improving on clear liquid diet. She is on ciprofloxacin and flayl both PO, with an apopropriate clinical response. It is reasonable to discharge her home (2) Acute diverticulitis: Code(s): K57.92 - Diverticulitis of intestine, part unspecified, without perforation or abscess without bleeding Status: Acute Assessment and Plan: Mild diverticulitis. Continue antibiotics. She will be switched to oral antibiotic today. Per GI, plan is for colonoscopy as an outpatient 3 weeks later. (3) Chronic kidney disease, stage 4 (severe): Code(s): N18.4 - Chronic kidney disease, stage 4 (severe) Status: Acute Assessment and Plan: Unknown baseline kidney function. Based on chart review, she appears to be at her baseline. Avoid nephrotoxic medication stable follow CMP (4) CHF exacerbation: Qualifiers: Heart failure type: unspecified Qualified Code(s): I50.9 - Heart failure, unspecified Code(s): I50.9 - Heart failure, unspecified Status: Acute Assessment and Plan: Probable acute on top of chronic diastolic CHF exacerbation associated with pulmonary edema Check BMP Check echo Give 1 dose of IV Lasix Re-evaluate in a.m. (5) Type 2 diabetes mellitus with diabetic nephropathy, with long-term current use of insulin: Code(s): E11.21 - Type 2 diabetes mellitus with diabetic nephropathy; Z79.4 - [facility] long term care (current) use of insulin Status: Acute Assessment and Plan: Insulin sliding scale (6) History of mitral valve repair: Code(s): Z98.890 - Other specified postprocedural states Status: Acute Assessment and Plan: Follow-up with PCP follow echo results (7) HTN (hypertension): Qualifiers: Hypertension type: unspecified Qualified Code(s): I10 - Essential (primary) hypertension Code(s): I10 - Essential (primary) hypertension Status: Chronic Assessment and Plan: Pending reconciliation of home medication (8) A-fib: Qualifiers: Atrial fibrillation type: persistent (not longstanding) Qualified Code(s): I48.19 - Other persistent atrial fibrillation Code(s): I48.91 - Unspecified atrial fibrillation Status: Chronic Assessment and Plan: Pending reconciliation of home medication (9) Abdominal pain: Code(s): R10.9 - Unspecified abdominal pain Status: Acute Assessment and Plan: Multifactorial probable related to acute diverticulitis concern for cholecystitis patient has allergy to Keflex also has not able to tolerate Cipro Continue azactam Subjective Date/time seen: 12/12/21 16:15 s: PAtient seen and examined at the bedside; she is feeling well. Diet is well tolerated and she is anxious to return home. Review of Systems Review of Systems: All systems reviewed & are unremarkable except as noted in HPI and below Exam Narrative: Const: General: cooperative HENMT: Head: normal to inspection, normocephalic and atraumatic Eyes: General: appearance normal, both eyes and all related structures Pupils: Equal, round and reactive pupils present EOM: EOMs intact bilaterally Neck: Neck: normal visual inspection, full ROM, no lymphadenopathy and no meningeal signs Chest: Chest palpation & inspection: normal inspection of the chest Resp: Effort & Inspection: normal respiratory effort, able to speak in complete sentences, no respiratory distress and not tachypneic Auscultation: clear to auscultation bilaterally, no crackles, no rales, no rhonchi and no wheezes Cardio: Rate: regular rate Rhythm: regular rhythm GI: Generalized tenderness no guarding : General: Yes no C
--- NOTE | 2021-12-12 16:27 | PM.DS ---
DS: Admitting Diagnosis Discharge Date 12/12/2021 Admitting Diagnosis (1) Chronic kidney disease, stage 4 (severe): (2) CHF exacerbation: (3) Type 2 diabetes mellitus with diabetic nephropathy, with long-term current use of insulin: (4) History of mitral valve repair: (5) HTN (hypertension): (6) A-fib: (7) Abdominal pain: DS: Discharge Diagnosis Discharge Diagnosis (1) Nausea & vomiting: Qualifiers: Vomiting type: unspecified Qualified Code(s): R11.2 - Nausea with vomiting, unspecified Code(s): R11.2 - Nausea with vomiting, unspecified Status: Acute Assessment and Plan: Patient is improving on clear liquid diet. She is on ciprofloxacin and flayl both PO, with an apopropriate clinical response. It is reasonable to discharge her home (2) Acute diverticulitis: Code(s): K57.92 - Diverticulitis of intestine, part unspecified, without perforation or abscess without bleeding Status: Acute Assessment and Plan: Mild diverticulitis. Continue antibiotics. She will be switched to oral antibiotic today. Per GI, plan is for colonoscopy as an outpatient 3 weeks later. (3) Chronic kidney disease, stage 4 (severe): Code(s): N18.4 - Chronic kidney disease, stage 4 (severe) Status: Acute Assessment and Plan: Unknown baseline kidney function. Based on chart review, she appears to be at her baseline. Avoid nephrotoxic medication stable follow CMP (4) CHF exacerbation: Qualifiers: Heart failure type: unspecified Qualified Code(s): I50.9 - Heart failure, unspecified Code(s): I50.9 - Heart failure, unspecified Status: Acute Assessment and Plan: Probable acute on top of chronic diastolic CHF exacerbation associated with pulmonary edema Check BMP Check echo Give 1 dose of IV Lasix Re-evaluate in a.m. (5) Type 2 diabetes mellitus with diabetic nephropathy, with long-term current use of insulin: Code(s): E11.21 - Type 2 diabetes mellitus with diabetic nephropathy; Z79.4 - residential (current) use of insulin Status: Acute Assessment and Plan: Insulin sliding scale (6) History of mitral valve repair: Code(s): Z98.890 - Other specified postprocedural states Status: Acute Assessment and Plan: Follow-up with PCP follow echo results (7) HTN (hypertension): Qualifiers: Hypertension type: unspecified Qualified Code(s): I10 - Essential (primary) hypertension Code(s): I10 - Essential (primary) hypertension Status: Chronic Assessment and Plan: Pending reconciliation of home medication (8) A-fib: Qualifiers: Atrial fibrillation type: persistent (not longstanding) Qualified Code(s): I48.19 - Other persistent atrial fibrillation Code(s): I48.91 - Unspecified atrial fibrillation Status: Chronic Assessment and Plan: Pending reconciliation of home medication (9) Abdominal pain: Code(s): R10.9 - Unspecified abdominal pain Status: Acute Assessment and Plan: Multifactorial probable related to acute diverticulitis concern for cholecystitis patient has allergy to Keflex also has not able to tolerate Cipro Continue azactam DS: Summary Hospital Course Reason for hospitalization: Abdominal pain Hospital Course: Please refer to admission H and P. This is a 76 year-old lady with past medical history of hypertension AFib myocardial infarction CHF presented to the hospital with abdominal pain started 1 week ago generalized severe worsening gradually associated with nausea and vomiting and able to tolerate food patient visited the ER 4 days ago where she was evaluated and was sent home CT scan was repeated today concern for cholecystitis versus fasting state on the CT scan also concern of diverticulitis also CT scan showed pulmonary edema patient was admitted to the hospital for further evaluation and treatment. (1) Abdominal pain: On ad
== END 2021-12-12 16:50 | disposition home or self-care (01) ==
LOC: ANHED 12-10 01:10 → ANH3MEDSUR 12-10 13:30
PROVIDERS: Admitting Provider Internal Medicine; Emergency Provider Emergency Medicine; PCP Family Medicine; Visit Provider Internal Medicine
DX: K57.92 Diverticulitis of intestine, part unspecified, without perforation or abscess without bleeding (principal); R11.2 Nausea with vomiting, unspecified; I13.0 Hypertensive heart and chronic kidney disease with heart failure and stage 1 through stage 4 chronic kidney disease, or unspecified chronic kidney disease; N18.4 Chronic kidney disease, stage 4 (severe); R10.30 Lower abdominal pain, unspecified; I48.0 Paroxysmal atrial fibrillation; I25.10 Atherosclerotic heart disease of native coronary artery without angina pectoris; I50.32 Chronic diastolic (congestive) heart failure; E11.22 Type 2 diabetes mellitus with diabetic chronic kidney disease; E78.5 Hyperlipidemia, unspecified; I34.0 Nonrheumatic mitral (valve) insufficiency; I25.2 Old myocardial infarction; E11.21 Type 2 diabetes mellitus with diabetic nephropathy; N25.0 Renal osteodystrophy; K21.9 Gastro-esophageal reflux disease without esophagitis; D63.1 Anemia in chronic kidney disease; J44.9 Chronic obstructive pulmonary disease, unspecified; Z87.891 Personal history of nicotine dependence; Z79.51 Long term (current) use of inhaled steroids; Z79.4 Long term (current) use of insulin; Z86.010 Personal history of colon polyps
CPT/HCPCS: 36415; 74176; 80053; 82948; 83605; 83690; 83880; 85025; 87040; 93306; 94640; 96361; 96365; 96366; 96367; 96372; 96375; 99285; A9270; G0378; J0131; J1644; J1940; J2270; J2543; J2550; J7120

== ENCOUNTER 2022-01-16 01:41 | Day surgery (SDC) | payer MEDICARE, SELFPAY ==
[2022-01-06 10:08] VITALS: BMI 24.2
--- NOTE | 2022-01-16 08:19 | WPDANESEPPF ---
Anes - Initial Pre Proc Eval Procedure: Operation Date: 01/16/22 10:00 Proposed Procedures p Colonoscopy - Juan Gasca MD Date/Time: 01/16/22 08:19 Surgeon: Juan Gasca MD Pre Op Diagnosis: hx of colon polyps, diverticulitis Patient Data Age: 76 Gender: F Height: 1.68 m Weight: 68 kg Allergies Allergy/AdvReac Type Severity Reaction Status Date / Time amiodarone Allergy Severe Unresponsiv Verified 01/16/22 08:55 e Zvltbsc-PJA-PxZ Reductase Allergy Severe Muscle Pain Verified 01/16/22 08:55 Inhibitor [Nypwslm-Tyw-Cqa Reductase Inhibitor] cephalexin Allergy Unknown Rash Verified 01/16/22 08:55 nitrofurantoin Allergy Unknown hand Verified 01/16/22 08:55 swelling Home Medications Medication Instructions Recorded Confirmed Type cyclosporine 0.05 % eye drops 1 drop EACH EYE Q12H 10/24/19 01/16/22 History diltiazem HCl 240 mg PO DAILY #30 cap 12/30/19 01/16/22 Rx carvedilol 12.5 mg PO BID 03/09/21 01/16/22 History hydralazine 25 mg PO BID 03/09/21 01/16/22 History potassium chloride 20 meq PO DAILY 03/09/21 01/16/22 History albuterol sulfate 5 mg INHALATION Q6HRT #90 ea 05/11/21 01/16/22 Rx furosemide 20 mg tablet 20 mg PO DAILY #30 tablet 12/08/21 01/16/22 Rx ezetimibe 10 mg PO DAILY 12/10/21 01/16/22 History Other studies: Admit Date: 12/10/2021 Staff Ordering Physician: Cherri Steinberg M.A., MD Rental Sales Agent: Belinda Holley RDCS Attending Provider: Cherri Steinberg M.A., MD Referring Physician: William REYES; Exam Type: CA echo doppler color flow Study Info Indications - Pulmonary edema Complete two-dimensional, color flow and Doppler transthoracic echocardiogram is performed. Summary 1. Complete two-dimensional, color flow and Doppler transthoracic echocardiogram is performed. 2. There is mild concentric increased left ventricular wall thickness. 3. Left ventricular systolic function is normal, estimated at 60-65%. 4. Left atrial chamber dimension is moderately enlarged. 5. The annuloplasty ring prosthetic mitral valve leaflefts are Empty. 6. There is trace regurgitation of the annuloplasty ring prosthetic mitral valve. 7. Compared with exam from April of last year there is no appreciable difference. Patient hx anesthesia problems: none Family hx anesthesia problems: none Results Review: All pre-operative results and documents have been reviewed as part of the pre-operative evaluation. [facility] Past Medical History Medical History A-fib Paroxysmal Anemia Anxiety Arthritis Bronchitis CAD (coronary artery disease) 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
[2022-01-16 08:56] VITALS: BP 177/93; PULSE 78; RESP 20; TEMP 36.2; O2SAT 94
[2022-01-16] MEDS: LACTATED RINGERS 1,000 ML 150 ML IV CONT (09:06)
--- NOTE | 2022-01-16 09:06 | PM.HPGS ---
History of Present Illness History of Present Illness Consent: Risks, benefits, and alternatives have been discussed and questions answered. Patient agrees to proceed with procedure. Chief complaint: hx of colon polyps, diverticulitis Narrative: Jennifer Schofield is a 76 year old female who was recently hospitalized with symptoms suggestive of diverticulitis. CT scan findings were subtle. She also has history of having had colon polyps. A tubular adenoma was removed 6 years ago. Since her hospitalization she has had occasional twinges in the left lower quadrant. She is also suffering from constipation lately. She she resists to 1 of her blood pressure medication. 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 Her is durable power sports attorney for healthcare. She desires to be full code. She smoked half a pack a cigarettes per day for 40 years quit March 14, 2014. No illicit drug use but does occasionally drink alcohol. 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 She has 2 children and 2 grandchildren Smoking packs per day: 0.5 Smoking cigarettes per day: 10.0 Years smoked: 40 Smoking pack-years: 20.00 Smoking status: Former smoker Tobacco type: cigarettes Second hand tobacco smoke exposure: Yes Smoking end date: 10/18/13 Additional smoking assessment comments: Occasional smoker for 40 years Alcohol intake: current Alcohol use details: once a year Substance use: never Substance use type: does not use Living arrangements: with family Gender identity (if verbalized by the patient): Female Sexual Orientation (if Verbalized by the Patient): Straight or Heterosexual Spiritual care concerns: No Agree to blood products: Yes Meds Home Medications and Allergies Home Medications Medication Instructions Recorded Confirmed Type cyclosporine 0.05 % eye drops 1 drop EACH EYE Q12H 10/24/19 01/16/22 History diltiazem HCl 240 mg PO DAILY #30 cap 12/30/19 01/16/22 Rx carvedilol 12.5 mg PO BID 03/09/21 01/16/22 History hydralazine 25 mg PO BID 03/09/21 01/16/22 H
[2022-01-16 10:01] VITALS: BP 116/78; PULSE 62; RESP 20; O2SAT 100
[2022-01-16 10:11] VITALS: BP 146/96; PULSE 57; RESP 20; O2SAT 94
[2022-01-16 10:21] VITALS: BP 164/81; PULSE 70; RESP 22; O2SAT 95
== END 2022-01-16 10:40 | disposition home or self-care (01) ==
PROVIDERS: PCP Family Medicine; Visit Provider Internal Medicine Gastroenterology
PROC: 0DJD8ZZ Inspection of Lower Intestinal Tract, Via Natural or Artificial Opening Endoscopic (ICD-10-PCS; CPT 45378; principal; 2022-01-16 10:00)
DX: Z12.11 Encounter for screening for malignant neoplasm of colon (principal); K57.30 Diverticulosis of large intestine without perforation or abscess without bleeding; D12.0 Benign neoplasm of cecum; I48.0 Paroxysmal atrial fibrillation; I13.0 Hypertensive heart and chronic kidney disease with heart failure and stage 1 through stage 4 chronic kidney disease, or unspecified chronic kidney disease; E11.22 Type 2 diabetes mellitus with diabetic chronic kidney disease; N18.4 Chronic kidney disease, stage 4 (severe); I50.32 Chronic diastolic (congestive) heart failure; I25.10 Atherosclerotic heart disease of native coronary artery without angina pectoris; E78.5 Hyperlipidemia, unspecified; F41.9 Anxiety disorder, unspecified; J44.9 Chronic obstructive pulmonary disease, unspecified; D63.1 Anemia in chronic kidney disease; K21.9 Gastro-esophageal reflux disease without esophagitis; I25.2 Old myocardial infarction; N25.0 Renal osteodystrophy; E11.21 Type 2 diabetes mellitus with diabetic nephropathy; Z87.891 Personal history of nicotine dependence
CPT/HCPCS: 45385; 88305; J2704; J7120

== ENCOUNTER 2022-04-17 12:58 | Outpatient (CLI) | payer MEDICARE, SELFPAY ==
[2022-04-17 13:21] LABS: Basophils Absolute Auto 0.1 K/mm3 (0.0-0.1); Basophils Percent Auto 0.8 % (0.2-1.2); Eosinophils Absolute Auto 0.6 K/mm3 (0-0.3); Eosinophils Percent Auto 6.1 % (0-4.4); Hematocrit 30.9 % (37.0-47.0); Hemoglobin 9.7 g/dL (12.0-15.0); Immature Granulocyte Absolute 0.02 K/mm3 (0.00-0.031); Immature Granulocyte Percent A 0.2 % (0-0.5); Lymphocytes Absolute Auto 1.12 K/mm3 (0.9-3.2); Lymphocytes Percent Auto 12.3 % (18.3-44.2); Mean Corpuscular HGB Conc 31.4 g/dl (32-36); Mean Corpuscular Hemoglobin 29.2 pg (26-34); Mean Corpuscular Volume 93.1 fl (80-100); Mean Platelet Volume 9.8 fl (7.4-10.4); Monocytes Absolute Auto 0.5 K/mm3 (0.1-0.6); Monocytes Percent Auto 5.8 % (2.6-8.5); Neutrophils Absolute Auto 6.8 K/mm3 (1.3-6.7); Neutrophils Percent Auto 74.8 % (45.5-73.1); Platelet Count Result 274 k/mm3 (150-375); Red Blood Count 3.32 M/mm3 (4.2-5.4); Red Cell Distribution Width 14.3 % (11.5-14.5); White Blood Count 9.1 K/mm3 (4.5-10.0)
[2022-04-17 14:41] LABS: Iron 56 ug/dL (37-170)
[2022-04-17 14:49] LABS: Alanine Aminotransferase 9 U/L (6-35); Alkaline Phosphatase 67 U/L (38-126); Anion Gap 10 mmol/L (8-16); Aspartate Amino Transferase 14 U/L (14-36); Bilirubin,Total 0.5 mg/dL (0.2-1.3); Blood Urea Nitrogen 33 mg/dL (7-17); Calcium 8.4 mg/dL (8.4-10.2); Carbon Dioxide 21 mmol/L (22-30); Chloride 108 mmol/L (98-107); Estimated Glomerular Filt Rate 18; Glucose 166 mg/dL (65-110); Lactate Dehydrogenase 404 U/L (313-618); Potassium 3.7 mmol/L (3.4-5.0); Sodium 139 mmol/L (137-145)
[2022-04-17 14:51] LABS: Percent Iron Saturation 16 % (20-50)
[2022-04-17 15:58] LABS: Folic Acid 14.9 ng/mL (2.76->20)
[2022-04-21 19:30] LABS: Erythropoietin (EPO) 15.8 mIU/mL (2.6-18.5)
[2022-04-22 15:37] LABS: Methylmalonic Acid 1866 nmol/L (87-318)
== END 2022-04-17 12:59 | disposition home or self-care (01) ==
LOC: ANHLAB 12:59
PROVIDERS: PCP Family Medicine; Visit Provider Internal Medicine Hematology & Oncology
DX: D64.9 Anemia, unspecified (principal)
CPT/HCPCS: 36415; 80053; 82607; 82668; 82728; 82746; 83540; 83550; 83615; 83921; 85025

== ENCOUNTER 2022-06-12 23:31 | Observation (INO) | payer MEDICARE, SELFPAY ==
--- NOTE | ~2022-06-12 | XR_ITS ---
EXAMINATION: XR chest 2V DATE: 06/13/2022 00:44 INDICATION: Shortness of breath TECHNIQUE: PA and lateral views of the chest are obtained. COMPARISON: 05/09/2021 FINDINGS: There is a mild diffuse interstitial pattern. Cardiomegaly is noted. There are small pleura l effusions. There is no pneumothorax. Changes of cardiac valve repair are noted. Surgical clips are again noted projecting over the right upper outer/outer thorax. There is moderate thoracic spondylosi s. IMPRESSION: 1. Cardiomegaly with mild pulmonary edema. 2. Small pleural effusions. Reviewed, dictated and finalized at location A.
[2022-06-12 23:37] VITALS: BP 224/76; PULSE 77; RESP 29; TEMP 36.7; O2SAT 88
--- NOTE | 2022-06-12 23:40 | ECG_ITS ---
Measurements Intervals [place] Rate: 75 P: 72 [place]: 208 QRS: -9 QRSD: 136 T: 93 QT: 414 QTc: 462 Interpretive Statements SINUS RHYTHM INTRAVENTRICULAR CONDUCTION DELAY [130+ ms QRS DURATION] ANTEROSEPTAL MYOCARDIAL INFARCTION , OF INDETERMINATE AGE [40+ ms Q WAVE AND/OR ST/T ABNORMALITY IN V3/V4] ABNORMAL ECG COMPARED TO ECG 12/05/2021 11:42:36 NO SIGNIFICANT CHANGES Electronically Signed On 06-13-2022 10:05:35 CDT by Giuseppe Montoya M.D.
[2022-06-12 23:46] VITALS: O2SAT 94
[2022-06-13] VITALS (19 sets, daily range): BP systolic 158–192; BP diastolic 57–83; PULSE 60–75; RESP 16–27; TEMP 36.3–36.5; O2SAT 94–100; BMI 25.1
[2022-06-13] MEDS: hydrALAZINE HCL 20 MG/ML VIAL 10 MG IV PUSH (00:40)
[2022-06-13] MEDS: FUROSEMIDE INJ 40 MG/4 ML VIAL IV PUSH ×3 (00:40→20:15)
--- NOTE | 2022-06-13 01:01 | ED.GENADULT ---
HPI - General Adult General Chief complaint: Shortness of Breath/Dyspnea Stated complaint: SOB SINCE YESTERDAY Time Seen by Provider: 06/13/22 00:21 History of Present Illness HPI narrative: Patient is 76-year-old female who presents the emergency department with chief complaint of shortness of breath. The patient reports that she has history of CHF reports that she has noticed that her abdomen has become a little bit more distended which is what happens whenever she has exacerbation of CHF. The patient reports that she has not qualified for home oxygen but they did buy a oxygen concentrator to use at home on an as-needed basis. The patient states today she noticed that she was saturating around 88 to 89% at home. Patient reports that she noticed her blood pressures been elevated this evening as well and reports that though she feels as though she cannot get a good deep breath. Patient denies fever denies chills denies cough. Patient reports feels similar to whenever she is had CHF exacerbations. Related Data Home Medications Medication Instructions Recorded Confirmed cyclosporine 0.05 % eye drops 1 drop ophthalmic (eye) Q12H 10/24/19 06/02/22 (Restasis MultiDose) carvedilol 12.5 mg tablet 12.5 mg PO BID 03/09/21 06/02/22 potassium chloride 20 mEq 20 meq PO DAILY 03/09/21 06/02/22 tablet,extended release(part/cryst) ezetimibe 10 mg tablet 10 mg PO DAILY 12/10/21 06/02/22 Allergies Allergy/AdvReac Type Severity Reaction Status Date / Time amiodarone Allergy Severe Unresponsiv Verified 06/02/22 12:17 e Axktlrm-NQG-YeD Reductase Allergy Severe Muscle Pain Verified 06/02/22 12:17 Inhibitor [Uzktcao-Lfu-Bjr Reductase Inhibitor] cephalexin Allergy Unknown Rash Verified 06/02/22 12:17 nitrofurantoin Allergy Unknown hand Verified 06/02/22 12:17 swelling Review of Systems Review of Systems: A 10 system review of systems was completed on the patient and is negative except for what is stated in the HPI. Nursing and ancillary documentation was reviewed. [facility] Past Medical History Medical History A-fib Paroxysmal Anemia Anxiety Arthritis Bronchitis CAD (coronary artery disease) 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 Her is durable power corporate associate attorney for healthcare. She
[2022-06-13 01:17] LABS: Basophils Absolute Auto 0.1 K/mm3 (0.0-0.1); Basophils Percent Auto 0.9 % (0.2-1.2); Eosinophils Absolute Auto 0.8 K/mm3 (0-0.3); Eosinophils Percent Auto 6.8 % (0-4.4); Hematocrit 34.2 % (37.0-47.0); Hemoglobin 10.8 g/dL (12.0-15.0); Immature Granulocyte Absolute 0.03 K/mm3 (0.00-0.031); Immature Granulocyte Percent A 0.3 % (0-0.5); Lymphocytes Absolute Auto 1.39 K/mm3 (0.9-3.2); Lymphocytes Percent Auto 12.2 % (18.3-44.2); Mean Corpuscular HGB Conc 31.6 g/dl (32-36); Mean Corpuscular Hemoglobin 29.5 pg (26-34); Mean Corpuscular Volume 93.4 fl (80-100); Mean Platelet Volume 10.1 fl (7.4-10.4); Monocytes Absolute Auto 0.6 K/mm3 (0.1-0.6); Monocytes Percent Auto 4.9 % (2.6-8.5); Neutrophils Absolute Auto 8.5 K/mm3 (1.3-6.7); Neutrophils Percent Auto 74.9 % (45.5-73.1); Platelet Count Result 256 k/mm3 (150-375); Red Blood Count 3.66 M/mm3 (4.2-5.4); Red Cell Distribution Width 13.9 % (11.5-14.5); White Blood Count 11.4 K/mm3 (4.5-10.0)
[2022-06-13 01:20] LABS: SARS-CoV-2 RNA PCR Negative
[2022-06-13 01:31] LABS: Alanine Aminotransferase 7 U/L (6-35); Albumin Level 4.2 g/dL (3.5-5.1); Alkaline Phosphatase 90 U/L (38-126); Anion Gap 10 mmol/L (8-16); Aspartate Amino Transferase 21 U/L (14-36); Bilirubin,Total 0.6 mg/dL (0.2-1.3); Blood Urea Nitrogen 40 mg/dL (7-17); Calcium 9.1 mg/dL (8.4-10.2); Carbon Dioxide 22 mmol/L (22-30); Chloride 105 mmol/L (98-107); Estimated CRCL calculation 16 ml/min; Estimated Glomerular Filt Rate 18; Glucose 150 mg/dL (65-110); Potassium 4.3 mmol/L (3.4-5.0); Sodium 137 mmol/L (137-145)
[2022-06-13 01:32] LABS: INR 1.1; Prothrombin Time 13.6 Seconds (11.1-14.7)
[2022-06-13 01:33] LABS: Partial Thromboplastin Time 25.3 SECONDS (22.3-36.8)
[2022-06-13 01:43] LABS: NT Pro B Type Natriuretic Pept 6210 pg/mL (5-100); Troponin I 0.014 ng/mL (0.000-0.034)
--- NOTE | 2022-06-13 04:30 | ADMGEN ---
This patient, Jennifer Schofield, was admitted to [facility] Surg Room 302-01. Patient/family oriented to hospital policies and general routines including ID bracelet, bed and alarms, visiting hours, pain management, procedures, bathroom and other care routines, personal items, smoking policy, room service/diet, and visiting hours. Information on how to activate the Rapid Response Team has been discussed. Patient/Family are encouraged to report perceived risks to care and to ask questions if they do not understand what they are told or what they should do.
[2022-06-13] MEDS: IPRATROPIUM BR 0.02% INH SOLN 0.5 MG/2.5 ML VIAL INHALATION ×3 (07:22→20:12)
[2022-06-13] MEDS: ALBUTEROL SULFATE NEB 2.5 MG/3 ML INH 5 MG INHALATION (07:22)
[2022-06-13 07:52] LABS: Glucose Point of Care 151 mg/dl (65-105)
--- NOTE | 2022-06-13 08:35 | PM.IMHP ---
H&P: HPI History of Present Illness Date/Time: 06/13/22 08:35 Chief Complaint: shortness of breath Narrative: Patient is 76-year-old female who presents the emergency department with chief complaint of shortness of breath.? The patient reports that she has history of CHF reports that she has noticed that her abdomen has become a little bit more distended which is what happens whenever she has exacerbation of CHF.? The patient reports that she has not qualified for home oxygen but they did buy a oxygen concentrator to use at home on an as-needed basis.? The patient stated she noticed that she was saturating around 88 to 89% at home.? Patient reports that she noticed her blood pressures been elevated this evening as well and reports that though she feels as though she cannot get a good deep breath.? Patient denies fever denies chills denies cough.? Patient reports feels similar to whenever she is had CHF exacerbations. Review of Systems Review of Systems: - CONSTITUTIONAL: Denies weight loss, fever and chills. - HEENT: Denies changes in vision and hearing - RESPIRATORY: Reports SOB and denies cough. - CV: Denies palpitations and CP. - GI: Denies abdominal pain, nausea, vomiting and diarrhea. - : Denies dysuria and urinary frequency. - MSK: Denies myalgia and joint pain. - SKIN: Denies rash and pruritus. - NEUROLOGICAL: Denies headache and syncope. - PSYCHIATRIC: Denies recent changes in mood. Denies anxiety and depression. [facility] Past Medical History Medical History A-fib Paroxysmal Anemia Anxiety Arthritis Bronchitis CAD (coronary artery disease) 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 Her is durable power mergers and acquisitions attorney for healthcare. She desires to be full code. She smoked half a pack a cigarettes per day for 40 years quit March 14, 2014. No illicit drug use but does occasionally drink alcohol. 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 She has 2 children and 2 grandchildren Smoking packs per day: 0.5 Smoking cigarettes per day: 10.0 Years smoked: 40 Smoking pack-years: 20.00 Smoking status: Former smoker Second hand tobacco smoke exposure: Yes Additional smoking assessment comments: Occasional smoker for 40 years Alcohol intake: current Drinks per week: 0 A
[2022-06-13] MEDS: carvediloL 12.5 MG TABLET PO ×2 (11:06→16:58)
[2022-06-13] MEDS: hydrALAZINE HCL 25 MG TABLET PO ×2 (11:06→16:59)
[2022-06-13] MEDS: EZETIMIBE 10 MG TABLET PO (11:06)
[2022-06-13] MEDS: cycloSPORINE 0.4 ML OPHTH SOLUTION 1 DROP EACH EYE (11:07)
[2022-06-13] MEDS: ALBUTEROL SULFATE NEB 2.5 MG/0.5 ML INH 5 MG INHALATION ×2 (13:49→20:12)
[2022-06-13] MEDS: HEPARIN SODIUM 5,000 UNITS/ML VIAL 5000 UNITS SUB-Q (20:15)
[2022-06-14] VITALS (9 sets, daily range): BP systolic 162; BP diastolic 65; PULSE 61–71; RESP 16–18; TEMP 36.6; O2SAT 92–97
[2022-06-14] MEDS: ALBUTEROL SULFATE NEB 2.5 MG/0.5 ML INH 5 MG INHALATION ×2 (01:50→07:35)
[2022-06-14] MEDS: IPRATROPIUM BR 0.02% INH SOLN 0.5 MG/2.5 ML VIAL INHALATION ×2 (01:50→07:35)
[2022-06-14 06:26] LABS: Basophils Absolute Auto 0.1 K/mm3 (0.0-0.1); Basophils Percent Auto 0.8 % (0.2-1.2); Eosinophils Absolute Auto 0.6 K/mm3 (0-0.3); Eosinophils Percent Auto 7.6 % (0-4.4); Hematocrit 32.6 % (37.0-47.0); Hemoglobin 10.5 g/dL (12.0-15.0); Immature Granulocyte Absolute 0.04 K/mm3 (0.00-0.031); Immature Granulocyte Percent A 0.5 % (0-0.5); Lymphocytes Absolute Auto 1.68 K/mm3 (0.9-3.2); Lymphocytes Percent Auto 22.5 % (18.3-44.2); Mean Corpuscular HGB Conc 32.2 g/dl (32-36); Mean Corpuscular Hemoglobin 29.7 pg (26-34); Mean Corpuscular Volume 92.1 fl (80-100); Mean Platelet Volume 10.5 fl (7.4-10.4); Monocytes Absolute Auto 0.7 K/mm3 (0.1-0.6); Neutrophils Absolute Auto 4.5 K/mm3 (1.3-6.7); Neutrophils Percent Auto 59.6 % (45.5-73.1); Platelet Count Result 268 k/mm3 (150-375); Red Blood Count 3.54 M/mm3 (4.2-5.4); Red Cell Distribution Width 13.8 % (11.5-14.5); White Blood Count 7.5 K/mm3 (4.5-10.0)
[2022-06-14 06:34] LABS: Alanine Aminotransferase 6 U/L (6-35); Albumin Level 3.9 g/dL (3.5-5.1); Alkaline Phosphatase 62 U/L (38-126); Anion Gap 13 mmol/L (8-16); Aspartate Amino Transferase 14 U/L (14-36); Bilirubin,Total 0.8 mg/dL (0.2-1.3); Blood Urea Nitrogen 38 mg/dL (7-17); Calcium 8.6 mg/dL (8.4-10.2); Carbon Dioxide 25 mmol/L (22-30); Chloride 101 mmol/L (98-107); Estimated CRCL calculation 16 ml/min; Estimated Glomerular Filt Rate 18; Glucose 113 mg/dL (65-110); Magnesium 2.2 mg/dL (1.6-2.3); Potassium 3.4 mmol/L (3.4-5.0); Sodium 139 mmol/L (137-145)
[2022-06-14] MEDS: POTASSIUM CHLORIDE 20 MEQ TABLET.ER BY MOUTH (08:37)
[2022-06-14] MEDS: HEPARIN SODIUM 5,000 UNITS/ML VIAL 5000 UNITS SUB-Q (08:37)
[2022-06-14] MEDS: FUROSEMIDE INJ 40 MG/4 ML VIAL IV PUSH (08:37)
[2022-06-14] MEDS: EZETIMIBE 10 MG TABLET PO (08:37)
[2022-06-14] MEDS: hydrALAZINE HCL 25 MG TABLET PO (08:37)
[2022-06-14] MEDS: carvediloL 12.5 MG TABLET PO (08:38)
--- NOTE | 2022-06-14 10:25 | PM.DS ---
DS: Admitting Diagnosis Discharge Date 06/14/2022 Admitting Diagnosis shortness of breath DS: Discharge Diagnosis Discharge Diagnosis (1) Acute CHF: Code(s): I50.9 - Heart failure, unspecified Status: Acute (2) Chronic kidney disease, stage 4 (severe): Code(s): N18.4 - Chronic kidney disease, stage 4 (severe) Status: Acute (3) Diabetes mellitus: Code(s): E11.9 - Type 2 diabetes mellitus without complications Status: Acute (4) Acute respiratory failure with hypoxia: Code(s): J96.01 - Acute respiratory failure with hypoxia Status: Acute (5) Shortness of breath: Code(s): R06.02 - Shortness of breath Status: Acute (6) CAD (coronary artery disease): Qualifiers: Coronary Disease-Associated Artery/Lesion type: [place] artery [place] vs. transplanted heart: [place] heart Associated angina: without angina Qualified Code(s): I25.10 - Atherosclerotic heart disease of [place] coronary artery without angina pectoris Code(s): I25.10 - Atherosclerotic heart disease of [place] coronary artery without angina pectoris Status: Acute (7) History of mitral valve repair: Code(s): Z98.890 - Other specified postprocedural states Status: Acute (8) COPD (chronic obstructive pulmonary disease): Code(s): J44.9 - Chronic obstructive pulmonary disease, unspecified Status: Acute (9) HLD (hyperlipidemia): Qualifiers: Hyperlipidemia type: mixed hyperlipidemia Qualified Code(s): E78.2 - Mixed hyperlipidemia Code(s): E78.5 - Hyperlipidemia, unspecified Status: Chronic (10) HTN (hypertension): Qualifiers: Hypertension type: unspecified Qualified Code(s): I10 - Essential (primary) hypertension Code(s): I10 - Essential (primary) hypertension Status: Chronic Plan DS: Summary Hospital Course Hospital Course: # shortness of breath: EKG with sinus rhythm and nonspecific ST-T changes. Chest x-ray with cardiomegaly and mild pulmonary edema with small pleural effusion. ED gave 40 mg Lasix x1 and placed on 40 mg IV b.i.d.. she diuresed well. She initially required oxygen on ED arrival due to hypoxia. This quickly resolved with diuresis. She is on Lasix 20 mg daily at home. Will switch to 40 mg daily at discharge. She felt well and wanted to go home and hence discharged home to follow-up with PCP and her wild life manager. Her renal function remained stable during the hospital stay while getting diuresed. # congestive heart failure acute on chronic BNP elevated at 6210. COVID Negative # hypertensive urgency likely due to volume overload. Diuresis. Improving # acute hypoxic respiratory failure COVID swab negative on nasal cannula oxygen supplementation. BNP is elevated at 6210. Troponin negative. Mild leukocytosis 11.4 which resolved likely stress reaction. # Mild anemia remains stable follows with mercury cell cleaner # hypertension # Hyperlipidemia # history of tobacco abuse # Mitral valve regurgitation status post mitral valve repair # Gastroesophageal reflux disease # type 2 diabetes with diabetic nephropathy # statin induced myopathy # coronary artery disease with chronic total occlusion of the RCA # COPD # history of colon polyps # chronic kidney disease is stage IV baseline creatinine: Mid 2s to 3. Currently at baseline continue monitor with diuresis and remained stable. Follow-up with Dr. Santos # DVT prophylaxis heparin subQ # code status full code Time Spent with Patient Time attestation: Total time spent providing and/or coordinating discharge services: 35 minutes Exam Narrative: GENERAL: The patient is well developed, not in acute distress on nasal cannula oxygen HEENT: Nonicteric sclerae, PERRLA, EOMI. Oropharynx clear. Moist mucous membranes. Conjunctivae appear well perfused. CHEST: Chest wall is nontender. HEART: Regular rate and rhythm without murmur, rubs, or gall
== END 2022-06-14 12:17 | disposition home or self-care (01) ==
LOC: ANHED 06-13 02:11 → ANH3MEDSUR 06-13 04:05
PROVIDERS: Admitting Provider Internal Medicine; Emergency Provider Emergency Medicine; PCP Family Medicine; Visit Provider Internal Medicine
DX: I13.0 Hypertensive heart and chronic kidney disease with heart failure and stage 1 through stage 4 chronic kidney disease, or unspecified chronic kidney disease (principal); I50.32 Chronic diastolic (congestive) heart failure; N18.4 Chronic kidney disease, stage 4 (severe); I48.0 Paroxysmal atrial fibrillation; E11.22 Type 2 diabetes mellitus with diabetic chronic kidney disease; J96.01 Acute respiratory failure with hypoxia; I25.10 Atherosclerotic heart disease of native coronary artery without angina pectoris; I25.82 Chronic total occlusion of coronary artery; Z98.890 Other specified postprocedural states; J44.9 Chronic obstructive pulmonary disease, unspecified; E78.5 Hyperlipidemia, unspecified; D63.1 Anemia in chronic kidney disease; D64.9 Anemia, unspecified; F41.9 Anxiety disorder, unspecified; I45.4 Nonspecific intraventricular block; R94.31 Abnormal electrocardiogram [ECG] [EKG]; M19.90 Unspecified osteoarthritis, unspecified site; K21.9 Gastro-esophageal reflux disease without esophagitis; N25.0 Renal osteodystrophy; J81.1 Chronic pulmonary edema; J90 Pleural effusion, not elsewhere classified; D72.829 Elevated white blood cell count, unspecified; Z20.822 Contact with and (suspected) exposure to COVID-19; R79.89 Other specified abnormal findings of blood chemistry; Z87.891 Personal history of nicotine dependence; Z79.51 Long term (current) use of inhaled steroids; Z79.899 Other long term (current) drug therapy; Z83.3 Family history of diabetes mellitus; Z82.49 Family history of ischemic heart disease and other diseases of the circulatory system
CPT/HCPCS: 36415; 71046; 80053; 82948; 83735; 83880; 84484; 85025; 85610; 85730; 93005; 94640; 96372; 96374; 96375; 96376; 97161; 97165; 99285; A9270; C9803; G0378; J0360; J1644; J1940; U0003; U0005

== ENCOUNTER 2023-09-11 19:42 | Inpatient (IN) | payer MEDICARE, SELFPAY ==
--- NOTE | ~2023-09-11 | XR_ITS ---
EXAMINATION: XR chest 1V portable Exam Date/Time: 09/11/2023 20:22 PMP CERTIFIED PROJECT MANAGER HISTORY: fall; HTN,COPD,Type 2 DM, A fib, MV replacement, prev smoker Comparison: 06/13/2022; CT abdomen pelvis 12/09/2021. RESULT: Lines, tubes, and devices: Cardiac valve replacement. Right axillary surgical clips. Lungs and pleura: Moderate diffuse reticular opacities. Senescent changes. Cardiomediastinal silhouette: Cardiomegaly. Other: No acute osseous or upper abdominal finding. IMPRESSION: Mild interstitial edema. Reviewed, dictated and finalized at location K. P CERTIFIED PROJECT MANAGER IMPRESSION: Mild interstitial edema.
--- NOTE | ~2023-09-11 | XR_ITS ---
EXAMINATION: XR surgery orthopedic DATE: 09/13/2023 16:02 INDICATION: Intertrochanteric nailing of at the intratrochanteric proximal right femoral fracture TECHNIQUE: 4 fluoroscopic images of the right hip were obtained during procedure performed by Dr. Wellington jenkins. Radiologist was not present for the imaging or procedure. The amount of fluoroscopy time used duri ng this procedure was 0.5 minutes. COMPARISON: None. FINDINGS: Interval open reduction internal fixation of a comminuted intratrochanteric fracture of the proximal right femur with placement of an antegrade intramedullary ad with femoral neck dynamic compression s crew. Alignment is significantly improved and appears near-anatomic aside from some residual proximal distraction of the lesser trochanteric fragment which is not included within the fixation. Moderate to severe right hip osteoarthritis. IMPRESSION: 1. Interval reduction and internal fixation of a comminuted intratrochanteric fracture proximal right femur which is now in near-anatomic alignment aside from residual mild distraction of a small lesser trochanteric fragment. Reviewed, dictated and finalized at location A. METALLURGICAL ENGINEER IMPRESSION: 1. Interval reduction and internal fixation of a comminuted intratrochanteric f racture proximal right femur which is now in near-anatomic alignment aside from residual mild distraction of a small lesser trochanteric fragment.
--- NOTE | ~2023-09-11 | XR_ITS ---
EXAM: XR hip RT 2V w AP pelvis DATE: 09/11/2023 20:20 HISTORY: fall, hip pain . COMPARISON: 04/11/2018. FINDINGS: Decreased mineralization. Right intertrochanteric fracture, with medial angulation. Lumbar degenerative disc disease. Severe bilateral hip osteoarthritis. IMPRESSION: Right intertrochanteric fracture with medial angulation. Reviewed, dictated and finalized at location K. IFIED PEST CONTROL TECHNICIAN
[2023-09-11 19:41] VITALS: BP 192/89; PULSE 81; RESP 16; TEMP 36.3; O2SAT 97
--- NOTE | 2023-09-11 20:15 | ECG_ITS ---
Measurements Intervals [place] Rate: 93 P: [place]: 0 QRS: -23 QRSD: 140 T: 108 QT: 400 QTc: 499 Interpretive Statements ATRIAL FLUTTER/TACHYCARDIA INTRAVENTRICULAR CONDUCTION DELAY ANTEROSEPTAL INFARCT, AGE INDETERMINATE ST-T WAVE ABNORMALITY IN HIGH LATERAL LEADS- CONSIDER ISCHEMIA BASELINE ARTIFACT- I, AVL ABNORMAL ECG COMPARED TO ECG 06/12/2022 23:46:09 ATRIAL FLUTTER/TACHYCARDIA NOW PRESENT Electronically Signed On 09-11-2023 22:18:02 RESOURCE SPECIALIST by Clyde Rowell D.O.
[2023-09-11] MEDS: ACETAMINOPHEN 500 MG TABLET 1000 MG PO (20:27)
[2023-09-11] MEDS: HYDROmorphone HCL INJ (*CRX) 1 MG/ML SYR 0.5 MG IV PUSH (20:28)
[2023-09-11 20:59] LABS: Basophils Absolute Auto 0.1 K/mm3 (0.0-0.1); Basophils Percent Auto 0.6 % (0.2-1.2); Eosinophils Absolute Auto 0.6 K/mm3 (0-0.3); Eosinophils Percent Auto 5.4 % (0-4.4); Hematocrit 35.5 % (37.0-47.0); Hemoglobin 11.1 g/dL (12.0-15.0); Immature Granulocyte Absolute 0.06 K/mm3 (0.00-0.031); Immature Granulocyte Percent A 0.5 % (0-0.5); Lymphocytes Absolute Auto 1.48 K/mm3 (0.9-3.2); Lymphocytes Percent Auto 12.6 % (18.3-44.2); Mean Corpuscular HGB Conc 31.3 g/dl (32-36); Mean Corpuscular Hemoglobin 29.8 pg (26-34); Mean Corpuscular Volume 95.4 fl (80-100); Monocytes Absolute Auto 0.6 K/mm3 (0.1-0.6); Monocytes Percent Auto 5.1 % (2.6-8.5); Neutrophils Absolute Auto 8.9 K/mm3 (1.3-6.7); Neutrophils Percent Auto 75.8 % (45.5-73.1); Platelet Count Result 221 k/mm3 (150-375); Red Blood Count 3.72 M/mm3 (4.2-5.4); Red Cell Distribution Width 13.1 % (11.5-14.5); White Blood Count 11.7 K/mm3 (4.5-10.0)
[2023-09-11 21:01] VITALS: BP 171/102; PULSE 93; RESP 16; O2SAT 95
[2023-09-11 21:09] LABS: Alanine Aminotransferase 11 U/L (6-35); Albumin Level 4.1 g/dL (3.5-5.1); Alkaline Phosphatase 73 U/L (38-126); Anion Gap 13 mmol/L (8-16); Aspartate Amino Transferase 18 U/L (14-36); Bilirubin,Total 0.7 mg/dL (0.2-1.3); Blood Urea Nitrogen 43 mg/dL (7-17); Carbon Dioxide 20 mmol/L (22-30); Chloride 108 mmol/L (98-107); Estimated CRCL calculation 14 ml/min; Estimated Glomerular Filt Rate 15; Glucose 118 mg/dL (65-110); Sodium 141 mmol/L (137-145)
--- NOTE | 2023-09-11 21:16 | ED.GENADULT ---
HPI - General Adult General Chief complaint: Extremity Injury, Lower Stated complaint: fall, hip pain Time Seen by Provider: 09/11/23 19:45 History of Present Illness HPI narrative: This is a 69-year-old female with history of hypertension, CHF and chronic kidney disease presenting after a fall. Says she was walking her kitchen when she felt a sharp pain in her hip and felt ground. No head trauma or other injuries. She has been nonambulatory since the incident. Related Data Home Medications Medication Instructions Recorded Confirmed cyclosporine 0.05 % eye drops 1 drop ophthalmic (eye) DAILY 10/24/19 07/16/23 (Restasis MultiDose) carvedilol 12.5 mg tablet 12.5 mg PO BID 03/09/21 07/16/23 potassium chloride 20 mEq See Rx Instructions .Route .COMPLEX 03/09/21 07/16/23 tablet,extended release(part/cryst) Allergies Allergy/AdvReac Type Severity Reaction Status Date / Time amiodarone Allergy Severe Unresponsiv Verified 09/11/23 20:04 e Prootzr-MJP-VnL Reductase Allergy Severe Muscle Pain Verified 09/11/23 20:04 Inhibitor [Xbaorru-Bvc-Hxa Reductase Inhibitor] cephalexin Allergy Unknown Rash Verified 09/11/23 20:04 nitrofurantoin Allergy Unknown hand Verified 09/11/23 20:04 swelling PMFSH Past Medical History Medical History A-fib Paroxysmal Acute exacerbation of CHF (congestive heart failure) Acute kidney injury superimposed on chronic kidney disease Acute on chronic diastolic heart failure Acute on chronic renal failure Anemia Anxiety Arthritis Bronchitis CAD (coronary artery disease) 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 Her is durable power prosecuting attorney for healthcare. She desires to be full code. She smoked half a pack a cigarettes per day for 40 years quit March 14, 2014. No illicit drug use but does occasionally drink alcohol. 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 She has 2 children and 2 grandchildren Smoking packs per day: 0.5 Smoking cigarettes per day: 10.0 Years smoked: 40 Smoking pack-years: 20.00 Smoking status: Former smoker Second hand tobacco smoke exposure: Yes Additional smoking assessment comments: Occasional smoker for 40 years Alcohol intake: current Drinks per week: 0 Alcohol use details: once a year Substance use: never Substan
[2023-09-11 21:18] LABS: NT Pro B Type Natriuretic Pept 7190 pg/mL (19.9-100)
[2023-09-11 21:31] LABS: Glucose Point of Care 140 mg/dl (65-105)
[2023-09-11 21:36] LABS: Appearance Urine Clear (Clear); Bacteria Urine None Seen /hpf; Bilirubin Urine Negative (Negative); Blood Urine Negative (Negative); Color Urine Yellow (Yellow); Glucose Urine UA Negative (Negative); Ketones Urine Negative (Negative); Leukocyte Esterase Ur Negative LEU/UL (Negative); Nitrate Urine Negative (Negative); Non Pathogenic Casts 0-2; Protein Urine 2+ mg/dL (Negative); RBC Urine 0-2 /hpf (0-2); Specific Grav Ur 1.013 (1.001-1.035); Squamous Epithelial Cell Urine None seen /hpf (Few); Urobilinogen Urine 0.2 mg/dL (<2.0); WBC Urine 0-5 /hpf
[2023-09-11 21:39] LABS: Add Urine Microscopic? YES
[2023-09-11 22:48] VITALS: BP 168/98; PULSE 100; RESP 16; O2SAT 94
[2023-09-11 23:35] VITALS: BP 173/93; PULSE 105; RESP 15; TEMP 36.5; O2SAT 90; BMI 25.8
--- NOTE | 2023-09-11 23:35 | ADMGEN ---
This patient, Vicente Schofield, was admitted to [facility] Surg Room 316-01 at 23:25. Patient/family oriented to hospital policies and general routines including ID bracelet, bed and alarms, visiting hours, pain management, procedures, bathroom and other care routines, personal items, smoking policy, room service/diet, and visiting hours. Information on how to activate the Rapid Response Team has been discussed. Patient/Family are encouraged to report perceived risks to care and to ask questions if they do not understand what they are told or what they should do.
[2023-09-12] VITALS (11 sets, daily range): BP systolic 133–163; BP diastolic 62–83; PULSE 80–106; RESP 13–16; TEMP 36.4–37.2; O2SAT 90–91
[2023-09-12] MEDS: HYDROmorphone HCL INJ (*CRX) 1 MG/ML SYR 0.5 MG IV PUSH ×2 (01:56→09:18)
[2023-09-12 07:02] LABS: Hematocrit 34.3 % (37.0-47.0); Hemoglobin 10.8 g/dL (12.0-15.0); Mean Corpuscular HGB Conc 31.5 g/dl (32-36); Mean Corpuscular Hemoglobin 30.6 pg (26-34); Mean Corpuscular Volume 97.2 fl (80-100); Mean Platelet Volume 9.7 fl (7.4-10.4); Platelet Count Result 205 k/mm3 (150-375); Red Blood Count 3.53 M/mm3 (4.2-5.4); Red Cell Distribution Width 13.1 % (11.5-14.5); White Blood Count 10.4 K/mm3 (4.5-10.0)
[2023-09-12 07:13] LABS: Anion Gap 12 mmol/L (8-16); Blood Urea Nitrogen 42 mg/dL (7-17); Calcium 8.9 mg/dL (8.4-10.2); Carbon Dioxide 21 mmol/L (22-30); Chloride 108 mmol/L (98-107); Estimated CRCL calculation 15 ml/min; Estimated Glomerular Filt Rate 16; Glucose 173 mg/dL (65-110); Potassium 4.2 mmol/L (3.4-5.0); Sodium 141 mmol/L (137-145)
--- NOTE | 2023-09-12 08:54 | PM.IMHP ---
H&P: HPI History of Present Illness Date/Time: 09/12/23 08:54 Chief Complaint: Hip pain after a fall Narrative: 77yo female with CKD, HTN, dCHF, CAD and diabetes here for hip pain after a fall. Patient states over past few days she has been experiencing right hip pain. She does have chronic low back pain and felt hip pain was related to her chronic back pain. She has not had any recent falls. No history of osteoporosis. She had recent UTI and just finished Augmentin. She does have a history of chronic UTIs and has been seen by Urology in the past. She denies any recent fever, chills, headaches, vision changes, hearing changes, odynophagia, dysphagia, chest pain, shortness of breath, cough, nausea, vomiting, dysuria or hematuria. No pedal edema. She had a heart catheterization in 2012 which showed chronic occlusion of the RCA with collaterals. She underwent mitral valve repair around that same time. She has not had a stress test or heart catheterization since that time. She does get serial echocardiograms and the last 1 was about a year ago. She does have chronic dyspnea on exertion and has had an extensive workup without a clear diagnosis. She is an ex-smoker. No increasing dyspnea on exertion recently. She still has mild lower abdominal pain and is not sure if her UTI completely cleared. She has intermittent AFib and noted that she felt she was back in AFib a few days prior to admission. SHe was on anticoagulation in the past but stopped 3 years ago due to severe epistaxis. She does not even take aspirin. She has diet-controlled diabetes and checks her glucose infrequently but normally <110. On the day of admission, patient was caring food to the table when she fell. No lost of consciousness and she does not feel like she tripped. She had pain to the hip and was unable to stand. Family tried to help her but they could not get her up. EMS was contacted and patient was brought to the emergency room for evaluation. In the emergency room, her blood pressure was 192/89. EKG showed atrial flutter/tachycardia with intermittent conduction delay and age-indeterminate anterior septal and [place]. She also ST-T wave abnormalities in the high lateral leads. Chest x-ray showed mild interstitial edema. Pelvic x-ray shows right inter trochanteric fracture with medial angulation. White count mildly elevated at 11.7K with hemoglobin 11 and normal platelet count mild eosinophilia noted and appears to be chronic. BUN 43 and creatinine 3.0 which is slightly above her baseline but has improved on repeat. BNP was 7190. UA showed 2+ protein otherwise negative. She was given acetaminophen and Dilaudid. She states the Dilaudid made her nauseous. She was admitted for further care. 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 Myocardial infarction Pneumo
[2023-09-12] MEDS: cycloSPORINE 0.4 ML OPHTH SOLUTION 1 DROP EACH EYE (09:21)
[2023-09-12] MEDS: hydrALAZINE HCL 25 MG TABLET PO ×2 (09:21→17:31)
[2023-09-12] MEDS: carvediloL 12.5 MG TABLET PO ×2 (09:21→20:45)
[2023-09-12] MEDS: dilTIAZem HCL CD 240 MG CAP.24HR PO (09:22)
--- NOTE | 2023-09-12 10:34 | PM.CNOR ---
Assessment and Plan Assessment and plan (1) Intertrochanteric fracture of right hip: Qualifiers: Encounter type: initial encounter Fracture type: closed Fracture alignment: displaced Qualified Code(s): S72.141A - Displaced intertrochanteric fracture of right femur, initial encounter for closed fracture Code(s): S72.141A - Displaced intertrochanteric fracture of right femur, initial encounter for closed fracture Status: Acute Plan 77-year-old female with an unusual right intertrochanteric hip fracture. She has the history of a prodrome of pain with the linearly of the fracture I suspect that she had a stress fracture that went on to completion. She does have severe arthritis in the right hip however given her multitude of medical issues, including incredibly poor renal function, her best option for stabilization is going to be a trochanteric nail device. Plan on proceeding tomorrow. Risks and potential complications were discussed in detail and questions answered. Discussed with the hospitalist service. Thank you for the consultation. History of Present Illness HPI Consult date: 09/12/23 Consult reason: fracture Chief complaint: Hip Fx Narrative: 77-year-old female here with a right intertrochanteric hip fracture. She gives an interesting history in that she had a prodrome of pain in the trochanteric region for several days before she felt her hip give way resulting in fracture. No significant problem with her hip in the past by her report however does have chronic low back issues. She was admitted for further evaluation and management of this issue. Does have multiple medical issues which are well detailed in the chart. Review of Systems Constitutional: Constitutional: Denies chills, Denies fever(s) and Denies night sweats Eyes: Eyes: Denies change in vision ENT: Reports Normal hearing present Cardiovascular: Cardiovascular: Denies chest pain and Denies dyspnea on exertion Respiratory: Respiratory: Denies dyspnea on exertion Gastrointestinal: Gastrointestinal: Denies abdominal pain Genitourinary: Genitourinary: Denies dysuria Musculoskeletal: Musculoskeletal: Reports as per HPI Neurologic: Reports Normal hearing present and Denies confusion Psychiatric: Psychiatric: Denies confusion Hematologic/Lymphatic: Hematologic/Lymphatic: Denies easy bleeding PMFSH Past Medical History Medical History (Updated 09/12/23 @ 10:39 by Wero Levy MD) A-fib Paroxysmal Acute exacerbation of CHF (congestive heart failure) Acute kidney injury superimposed on chronic kidney disease Acute on chronic diastolic heart failure Acute on chronic renal failure Anemia Anxiety Arthritis Bronchitis CAD (coronary artery disease) 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 Chronic kidney disease, stage 4 (severe) CKD (chronic kidney disease) COPD (chronic obstructive pulmonary disease) Diabetes mellitus Erythropoietin deficiency anemia GERD (gastroesophageal reflux disease) History of ventricular tachycardia polymorphic VTach requiring defibrillation felt related to Amio HLD (hyperlipidemia) HTN (hypertension) Hypertensive heart disease with heart failure Intertrochanteric fracture of right hip Mitral valve regurgitation Echo April 2021 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. 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
[2023-09-12] MEDS: FUROSEMIDE INJ 40 MG/4 ML VIAL 20 MG IV PUSH (10:54)
[2023-09-12] MEDS: ONDANSETRON INJ 4 MG/2 ML VIAL IV PUSH (10:54)
[2023-09-12 11:30] LABS: Glucose Point of Care 143 mg/dl (65-105)
[2023-09-12 16:40] LABS: Glucose Point of Care 155 mg/dl (65-105)
[2023-09-12] MEDS: HYDROcodone/acetaminophen (*CRX) 5-325 MG TABLET 1 TAB PO ×2 (17:31→23:12)
[2023-09-12 20:27] LABS: Glucose Point of Care 229 mg/dl (65-105)
[2023-09-13] VITALS (20 sets, daily range): BP systolic 124–146; BP diastolic 54–69; PULSE 53–85; RESP 12–18; TEMP 36.1–37.6; O2SAT 92–100
[2023-09-13 06:49] LABS: Hemoglobin A1C 6.4 % (<5.7)
[2023-09-13 06:50] LABS: Basophils Absolute Auto 0.1 K/mm3 (0.0-0.1); Basophils Percent Auto 0.7 % (0.2-1.2); Eosinophils Absolute Auto 0.3 K/mm3 (0-0.3); Eosinophils Percent Auto 2.6 % (0-4.4); Hematocrit 30.7 % (37.0-47.0); Hemoglobin 9.6 g/dL (12.0-15.0); Immature Granulocyte Absolute 0.03 K/mm3 (0.00-0.031); Immature Granulocyte Percent A 0.3 % (0-0.5); Lymphocytes Absolute Auto 2.05 K/mm3 (0.9-3.2); Lymphocytes Percent Auto 19.6 % (18.3-44.2); Mean Corpuscular HGB Conc 31.3 g/dl (32-36); Mean Corpuscular Hemoglobin 30.3 pg (26-34); Mean Corpuscular Volume 96.8 fl (80-100); Mean Platelet Volume 10.3 fl (7.4-10.4); Monocytes Absolute Auto 0.9 K/mm3 (0.1-0.6); Monocytes Percent Auto 8.2 % (2.6-8.5); Neutrophils Absolute Auto 7.2 K/mm3 (1.3-6.7); Neutrophils Percent Auto 68.6 % (45.5-73.1); Platelet Count Result 198 k/mm3 (150-375); Red Blood Count 3.17 M/mm3 (4.2-5.4); Red Cell Distribution Width 13.2 % (11.5-14.5); White Blood Count 10.5 K/mm3 (4.5-10.0)
[2023-09-13 06:54] LABS: Albumin Level 3.3 g/dL (3.5-5.1); Anion Gap 11 mmol/L (8-16); Blood Urea Nitrogen 53 mg/dL (7-17); Calcium 8.4 mg/dL (8.4-10.2); Carbon Dioxide 22 mmol/L (22-30); Chloride 105 mmol/L (98-107); Estimated CRCL calculation 13 ml/min; Estimated Glomerular Filt Rate 15; Glucose 127 mg/dL (65-110); Magnesium 2.7 mg/dL (1.6-2.3); Phosphorus 5.5 mg/dL (2.5-4.5); Potassium 4.3 mmol/L (3.4-5.0); Sodium 138 mmol/L (137-145)
[2023-09-13] MEDS: SODIUM CHLORIDE 0.9% IV 1,000 ML 70 ML IV CONT (07:39)
[2023-09-13 08:04] LABS: Glucose Point of Care 130 mg/dl (65-105)
[2023-09-13] MEDS: cycloSPORINE 0.4 ML OPHTH SOLUTION 1 DROP EACH EYE (09:07)
[2023-09-13] MEDS: dilTIAZem HCL CD 240 MG CAP.24HR PO (09:07)
[2023-09-13] MEDS: carvediloL 12.5 MG TABLET PO ×2 (09:07→20:16)
--- NOTE | 2023-09-13 10:43 | PM.IMPN ---
Progress Note: A&P Assessment and Plan (1) Closed hip fracture: Code(s): S72.009A - Fracture of unspecified part of neck of unspecified femur, initial encounter for closed fracture Status: Deleted Assessment and Plan: Patient presents with hip pain after a fall and found to have a right IT femur fracture. Suspect she had an initial incomplete fracture given the hip pain for a few days prior to the event. Orthopedics consulted with plans for surgical repair later today. (2) A-fib: Qualifiers: Atrial fibrillation type: persistent (not longstanding) Qualified Code(s): I48.19 - Other persistent atrial fibrillation Code(s): I48.91 - Unspecified atrial fibrillation Status: Chronic Assessment and Plan: Her EKG showing atrial flutter/tachycardia. Tele showing AFlutter with variable conduction. She has a hx of pAFib and not on chcf anticoagulation due to severe episode of epistaxis. Rate controlled. Continue to monitor on telemetry (3) CHF (congestive heart failure): Code(s): I50.9 - Heart failure, unspecified Status: Acute Assessment and Plan: She has a hx of CHF. Mild edema noted on CXR but not fluid overloaded clinically. Edema could be related to recent change to AFib. BNP 7190 Lasix IV once given 09/13 She remains on room air. Lungs clear. Hold on resuming home Lasix given the slight bump in her Cr. Follow (4) CKD (chronic kidney disease): Code(s): N18.9 - Chronic kidney disease, unspecified Status: Acute Assessment and Plan: She has chronic CKD and baseline Cr 2.5-2.8. Cr up to 3.1 today. She is NPO so will hold home Lasix and start maintenance IV fluids. (5) CAD (coronary artery disease): Code(s): I25.10 - Atherosclerotic heart disease of [place] coronary artery without angina pectoris Status: Acute Assessment and Plan: Stable. Not on ASA or statin. Coreg resumed. (6) COPD (chronic obstructive pulmonary disease): Code(s): J44.9 - Chronic obstructive pulmonary disease, unspecified Status: Acute Assessment and Plan: Stable. No wheezing. (7) HTN (hypertension): Qualifiers: Hypertension type: unspecified Qualified Code(s): I10 - Essential (primary) hypertension Code(s): I10 - Essential (primary) hypertension Status: Chronic Assessment and Plan: Patient's blood pressure was reviewed on 09/13 Blood pressure better controlled. Will continue current medications. (8) Diabetes mellitus: Code(s): E11.9 - Type 2 diabetes mellitus without complications Status: Acute Assessment and Plan: A1c 6.4. The patient's blood glucose was reviewed on 09/13 Glucose remains reasonably well controlled. Continue AccuCheks covering with sliding scale. Hypoglycemia protocol available as needed. Continue director business systems monitor Plan DVT prophylaxis - SCDs Code status - full Subjective Date/time seen: 09/13/23 10:43 Interval history: 77yo female with CKD, HTN, dCHF, CAD and diabetes here for hip pain after a fall and found to have right femur fx.?? Pain controlled. No CP or SOB. No n/v. Exam Narrative: AF 98.1 126/54 69 18 94% RA Gen - NARD Chest - clear anteriorly, nml RR CV - irregular. Tele showing AFlutter with variable conduction. Abd - soft. NT/ND. +BS - Carney secured draining clear yellow urine Ext - no pedal edema. 2+ Rt DP pulse. Nml sensation to the LE Neuro - nonfocal Psych - normal mood and affect. Skin - warm and dry. Objective Data Vital Signs Vital Signs: Vital Signs - 24 hr 09/12/23 13:33 09/12/23 12:00 09/12/23 16:00 Temperature 97.6 F Pulse Rate 100 106 H 85 Respiratory Rate 16 Blood Pressure 147/83 H Pulse Oximetry 90 09/12/23 20:27 09/12/23 20:45 09/12/23 20:00 Temperature 98.9 F Pulse Rate 84 84 88 Respiratory Rate 16 Blood Pressure 133/62 Pulse Ox
[2023-09-13 11:19] LABS: Glucose Point of Care 109 mg/dl (65-105)
--- NOTE | 2023-09-13 11:20 | P.CDI_ITS ---
CDI Query Clarification Request Documented history of CHF. CHF noted in the assessment and plan. BNP elevated on 09/11/23 lab work. Mild interstitial edema noted on the 09/11/23 chest xray. Patient received Lasix. Please specify type and acuity of heart failure if known. * Acute * Chronic * Acute on Chronic * Unknown * Systolic * Diastolic * Combined Systolic and Diastolic * Unknown
--- NOTE | 2023-09-13 14:10 | PC.NURSE ---
To OR per [Stiven], IV [20 L AC]. Report given to [Krista].
[2023-09-13 14:43] LABS: Glucose Point of Care 93 mg/dl (65-105)
--- NOTE | 2023-09-13 14:44 | WPDANESEPPF ---
Anes - Initial Pre Proc Eval Procedure: Operation Date: 09/13/23 15:30 Proposed Procedures p Right Intertrochanteric Nail - Wero Levy MD Date/Time: 09/13/23 14:44 Surgeon: Julia Sanchez DO Pre Op Diagnosis: Hip Fx Patient Data Age: 77 Gender: F Height: 1.7 m Weight: 74.8 kg Last Vital Signs Temp 37.6 C H 09/13/23 14:15 Pulse 66 09/13/23 14:15 Resp 16 09/13/23 14:15 BP 146/54 H 09/13/23 14:15 Pulse Ox 94 09/13/23 14:15 O2 Del Method Room Air 09/13/23 14:15 Allergies Allergy/AdvReac Type Severity Reaction Status Date / Time amiodarone Allergy Severe Unresponsiv Verified 09/11/23 20:04 e Vzcjeyn-KSV-YgD Reductase Allergy Severe Muscle Pain Verified 09/11/23 20:04 Inhibitor [Lkoscil-Tuy-Uie Reductase Inhibitor] nitrofurantoin Allergy Unknown hand Verified 09/11/23 20:04 swelling Home Medications Medication Instructions Recorded Confirmed Type cyclosporine 0.05 % eye drops 1 drop ophthalmic (eye) DAILY 10/24/19 09/11/23 History (Restasis MultiDose) diltiazem HCl 240 mg 240 mg PO DAILY #30 caps 12/30/19 09/11/23 Rx capsule,extended release 24 hr carvedilol 12.5 mg tablet 12.5 mg PO BID 03/09/21 09/11/23 History potassium chloride 20 mEq 20 meq EVERY OTHER DAY 03/09/21 09/11/23 History tablet,extended release(part/cryst) (Klor-Con M) hydralazine 25 mg tablet 25 mg PO BID #180 tabs 07/16/23 09/11/23 Rx ezetimibe 10 mg tablet 10 mg PO DAILY 09/11/23 09/11/23 History famotidine 10 mg chewable tablet 10 mg PO AC PRN Heartburn 09/11/23 09/11/23 History furosemide 20 mg PO 5XW 09/11/23 09/11/23 History furosemide 40 mg tablet (Lasix) 40 mg PO 2XW 09/11/23 09/11/23 History cyanocobalamin (vitamin B-12) 25 25 mcg PO DAILY 09/12/23 09/12/23 History mcg tablet Laboratory Tests 09/12/23 09/12/23 09/13/23 16:35 19:49 06:30 WBC 10.5 H K/mm3 (4.5-10.0) RBC 3.17 L M/mm3 (4.2-5.4) Hgb 9.6 L g/dL (12.0-15.0) Hct 30.7 L % (37.0-47.0) MCV 96.8 fl (80-100) MCH 30.3 pg (26-34) MCHC 31.3 L g/dl (32-36) RDW 13.2 % (11.5-14.5) Plt Count 198 k/mm3 (150-375) MPV 10.3 fl (7.4-10.4) Immature Gran % (Auto) 0.3 % (0-0.5) Neut % (Auto) 68.6 % (45.5-73.1) Lymph % (Auto) 19.6 % (18.3-44.2) [place] % (Auto) 8.2 % (2.6-8.5) Eos % (Auto) 2.6 % (0-4.4) Baso % (Auto) 0.7 % (0.2-1.2) Lymph # (Auto) 2.05 K/mm3 (0.9-3.2) [place] # (Auto) 0.9 H K/mm3 (0.1-0.6) Eos # (Auto) 0.3 K/mm3 (0-0.3) Baso # (Auto) 0.1 K/mm3 (0.0-0.1) Abs Immat Gran (auto) 0.03 K/mm3 (0.00-0.031) Absolute Neuts (auto) 7.2 H K/mm3 (1.3-6.7) Absolute Nucleated RBC 0.0 K/mm3 (0.0-0.012) Nucleated RBC % 0.0 % (0.0-0.2) Sodium 138 mmol/L (137-145) Potassium 4.3 mmol/L (3.4-5.0) Chloride 105 mmol/L (98-107) Carbon Dioxide 22 mmol/L (22-30) Anion Gap 11 mmol/L (8-16) BUN 53 H D mg/dL (7-17) Creatinine 3.10 H mg/dL (0.7-1.0) Estim Creat Clear Calc 13 ml/min Estimated GFR 15 L (59 - ) Glucose 127 H mg/dL (65-110) POC Capillary Glucose 155 H mg/dl 229 H mg/dl (65-105) (65-105) Hemoglobin A1c 6.4 H % (<5.7) Calcium 8.4 mg/dL (8.4-10.2) Phosphorus 5.5 H mg/dL (2.5-4.5) Magnesium 2.7 H mg/dL (1.6-2.3) Albumin 3.3 L g/dL (3.5-5.1) TSH (Reflex) 1.460 uIU/mL (0.465-4.68) 09/13/23 09/13/23 09/13/23 08:01 11:08 14:40 WBC RBC Hgb Hct MCV MCH MCHC RDW Plt Count MPV Immature Gran % (Auto) Ne
[2023-09-13] MEDS: LACTATED RINGERS 1,000 ML 30 ML IV CONT (15:00)
[2023-09-13] MEDS: CLINDAMYCIN 600 MG/D5W 50 ML 600 MG/50 ML PIGGYBACK 100 MG IVPB (15:12)
--- NOTE | 2023-09-13 16:07 | SUR.OPER ---
50mL clear yellow urine drained from babb catheter
--- NOTE | 2023-09-13 16:24 | P.OP_ITS ---
Procedure Note - Detailed Date of Procedure 09/13/23 Pre-op Diagnosis Right IT hip fracture Post-op Diagnosis Same Procedure Performed ORIF right IT hip fracture Surgeon Wero Levy MD Licensed Home Inspector [place] Anesthesia General Description of Procedure The patient was identified and proper site identified, then was taken to the operating room and after general anesthetic induction and intubation was transferred to the [place] table positioning supine taking care to properly pad position the torso and extremities. A provisional reduction was able to be obtained with fluoroscopic assistance. The right hip and thigh was then prepped and draped in the usual sterile fashion. A short incision was made proximal to the tip of the greater trochanter. Subcutaneous tissue was sharply dissected down to the gluteus fascia which was incised over the tip of the greater trochanter. An awl was used to create a starting hole through which a guide ad was inserted into the femoral canal verifying its position fluoroscopically. The one-step Reamer was used to prepare the entry point for the ad. A 125 degree, 11 millimeter short nail was then inserted to the appropriate level using the targeting device. Through a 2nd more distal incision under fluoroscopic visualization a 95 mm lag screw was inserted over a guidewire into the femoral neck and head securing it with the set screw. The overall construct was assessed fluoroscopically on the AP and lateral views, and was noted to be satisfactory. The targeting device was removed. The wounds were irrigated with sterile antibiotic solution. The fascia was reapproximated with 0 Vicryl as was the deeper layers of the subcu. Skin edges were reapproximated with three 0 V lock and bia.. Sterile dressing was applied. The procedure was well tolerated. There were no known intraoperative complications. Perioperative antibiotics were administered. Estimated Blood Loss 50 Urine Output -50.0 Drains No Packing No Pathology None sent Complications No immediate complications Condition Stable Disposition PACU [facility] Billing Surgery - Charge Forward: Surgery Billing ([id number]; [id number])
[2023-09-13 16:27] LABS: Glucose Point of Care 122 mg/dl (65-105)
[2023-09-13] MEDS: fentaNYL CITRATE INJ (*CRX) 100 MCG/2 ML VIAL 25 MCG IV PUSH ×4 (16:32→16:55)
[2023-09-13] MEDS: SODIUM CHLORIDE 0.9% IV 1,000 ML 125 ML IV CONT (17:40)
[2023-09-13] MEDS: hydrALAZINE HCL 25 MG TABLET PO (17:45)
[2023-09-13] MEDS: SENNA/DOCUSATE SODIUM TABLET 2 TAB PO (17:50)
--- NOTE | 2023-09-13 17:55 | PC.NURSE ---
Returned from OR per [Lisa at 1725]. Report received from [Lisa].
[2023-09-13] MEDS: ceFAZolin 2 GM/D5W 50 ML 2 GM/50 ML BAG IVPB (20:17)
[2023-09-13] MEDS: MORPHINE SULFATE (*CRX) 2 MG/ML INJ IV PUSH (20:20)
[2023-09-13 20:22] LABS: Glucose Point of Care 191 mg/dl (65-105)
[2023-09-14] VITALS (12 sets, daily range): BP systolic 128–136; BP diastolic 51–71; PULSE 59–85; RESP 14–16; TEMP 36.7–36.9; O2SAT 91–98
[2023-09-14] MEDS: ceFAZolin 2 GM/D5W 50 ML 2 GM/50 ML BAG IVPB ×2 (05:30→12:24)
[2023-09-14] MEDS: HYDROcodone/acetaminophen (*CRX) 5-325 MG TABLET 1 TAB PO ×4 (05:31→21:11)
[2023-09-14 06:49] LABS: Basophils Percent Auto 0.1 % (0.2-1.2); Hematocrit 31.1 % (37.0-47.0); Hemoglobin 9.6 g/dL (12.0-15.0); Immature Granulocyte Absolute 0.04 K/mm3 (0.00-0.031); Immature Granulocyte Percent A 0.4 % (0-0.5); Lymphocytes Absolute Auto 0.62 K/mm3 (0.9-3.2); Lymphocytes Percent Auto 6.2 % (18.3-44.2); Mean Corpuscular HGB Conc 30.9 g/dl (32-36); Mean Corpuscular Volume 97.2 fl (80-100); Mean Platelet Volume 10.8 fl (7.4-10.4); Monocytes Absolute Auto 0.5 K/mm3 (0.1-0.6); Monocytes Percent Auto 4.6 % (2.6-8.5); Neutrophils Absolute Auto 8.8 K/mm3 (1.3-6.7); Neutrophils Percent Auto 88.7 % (45.5-73.1); Platelet Count Result 184 k/mm3 (150-375); White Blood Count 9.9 K/mm3 (4.5-10.0)
[2023-09-14 07:14] LABS: Albumin Level 3.4 g/dL (3.5-5.1); Anion Gap 10 mmol/L (8-16); Blood Urea Nitrogen 56 mg/dL (7-17); Calcium 8.1 mg/dL (8.4-10.2); Carbon Dioxide 21 mmol/L (22-30); Chloride 106 mmol/L (98-107); Estimated CRCL calculation 14 ml/min; Estimated Glomerular Filt Rate 15; Glucose 168 mg/dL (65-110); Phosphorus 6.2 mg/dL (2.5-4.5); Potassium 4.6 mmol/L (3.4-5.0); Sodium 137 mmol/L (137-145)
--- NOTE | 2023-09-14 07:24 | PM.PNORT ---
Progress Note: A&P Assessment and Plan (1) Intertrochanteric fracture of right hip: Qualifiers: Encounter type: subsequent encounter Fracture type: closed Fracture alignment: displaced Fracture healing: with routine healing Qualified Code(s): S72.141D - Displaced intertrochanteric fracture of right femur, subsequent encounter for closed fracture with routine healing Code(s): S72.141A - Displaced intertrochanteric fracture of right femur, initial encounter for closed fracture Status: Acute Plan 77-year-old female postop day one ORIF right IT hip fracture. Doing well. Therapy will be initiated. Her concerns regarding placement are being addressed by care coordination. Follow-up she is in the hospital. She will need to have her bia in for two weeks. Plan on follow-up x-ray at the eight week point from surgery. If all looks fine could be advanced to full weight-bearing at that point, not prior. Surgery discussed with patient as well as postoperative course expectations. History of breast cancer. Will plan on six weeks of DVT prophylaxis with Xarelto 10 milligrams per day. Subjective Subjective Date/Time Seen: 09/14/23 07:24 Post Op day: 1 Principal diagnosis: Status post ORIF right IT hip fracture. Interval history: 77-year-old female postop day one ORIF right IT hip fracture. No issues overnight. As expected has some the right hip area soreness. Exam Const: General: cooperative and no acute distress GI: Other: Belly nondistended. Extrem: Other: Right hip wounds dry. Minimal swelling right thigh. Neurovascular status intact right lower extremity. Radiology Reports: Comments: EXAMINATION: XR surgery orthopedic DATE: 09/13/2023 16:02 INDICATION: Intertrochanteric nailing of at the intratrochanteric proximal right femoral fracture TECHNIQUE: 4 fluoroscopic images of the right hip were obtained during procedure performed by Dr. Levy. Radiologist was not present for the imaging or procedure. The amount of fluoroscopy time used during this procedure was 0.5 minutes.? COMPARISON: None. FINDINGS: Interval open reduction internal fixation of a comminuted intratrochanteric fracture of the proximal right femur with placement of an antegrade intramedullary ad with femoral neck dynamic compression screw. Alignment is significantly improved and appears near-anatomic aside from some residual proximal distraction of the lesser trochanteric fragment which is not included within the fixation. Moderate to severe right hip osteoarthritis. IMPRESSION: 1. Interval reduction and internal fixation of a comminuted intratrochanteric fracture proximal right femur which is now in near-anatomic alignment aside from residual mild distraction of a small lesser trochanteric fragment. Reviewed, dictated and finalized at location A. E MANAGER Objective Data Vital Signs Vital Signs: Vital Signs - 24 hr 09/13/23 09:07 09/13/23 08:00 09/13/23 12:00 Temperature Pulse Rate 69 66 73 Respiratory Rate Blood Pressure Pulse Oximetry Oxygen Delivery Oxygen Flow Rate 09/13/23 14:00 09/13/23 14:15 09/13/23 16:16 Temperature 98.6 F 99.7 F H 98.9 F Pulse Rate 69 66 62 Respiratory Rate 12 16 15 Blood Pressure 124/58 L 146/54 H 143/63 H Pulse Oximetry 95 94 100 Oxygen Delivery Room Air Simple Face Mask Oxygen Flow Rate 8 09/13/23 16:30 09/13/23 16:45 09/13/23 17:00 Temperature Pulse Rate 64 53 L 62 Respiratory Rate 12 14 16 Blood Pressure 146/68 H 140/62 134/55 L Pulse Oximetry 97 98 94 Oxygen Delivery Simple Face Mask Simple Face Mask Nasal Cannula Oxygen Flow Rate 8 6 2 09/13/23 17:15 09/13/23 17:25 09/13/23 17:40 Temperature 97.4 F L 97.6 F Pulse Rate 60 61 57 L Respiratory Rate 14 16 14 Blood Pressure 143/57 H 140/61 140/57 L Pulse Ox
[2023-09-14 07:58] LABS: Glucose Point of Care 149 mg/dl (65-105)
[2023-09-14] MEDS: SENNA/DOCUSATE SODIUM TABLET 2 TAB PO ×2 (08:43→16:40)
[2023-09-14] MEDS: carvediloL 12.5 MG TABLET PO ×2 (08:43→21:08)
[2023-09-14] MEDS: EZETIMIBE 10 MG TABLET PO (08:43)
[2023-09-14] MEDS: dilTIAZem HCL CD 240 MG CAP.24HR PO (08:43)
[2023-09-14] MEDS: hydrALAZINE HCL 25 MG TABLET PO ×2 (08:43→16:41)
[2023-09-14] MEDS: cycloSPORINE 0.4 ML OPHTH SOLUTION 1 DROP EACH EYE (08:44)
[2023-09-14] MEDS: polyethylene glycoL 3350 17 GM POWD.PACK PO (08:45)
[2023-09-14] MEDS: FUROSEMIDE 40 MG TABLET PO (08:52)
--- NOTE | 2023-09-14 09:19 | WPDANESPN ---
Anes - Prog Note Post-Op Date/Time: 09/14/23 09:19 Cardiovascular status: normal Respiratory status: normal Airway patency: baseline Mental status: baseline Post-Op hydration status: normal Vital Signs: Last Vital Signs Temp 36.8 C 09/14/23 05:15 Pulse 70 09/14/23 08:43 Resp 16 09/14/23 05:15 BP 134/55 L 09/14/23 05:15 Pulse Ox 96 09/14/23 05:15 O2 Del Method Nasal Cannula 09/13/23 20:00 O2 Flow Rate 2 09/13/23 20:00 Pain Score (VAS): 12/25 I/O: Intake & Output 09/13/23 09/14/23 09/14/23 23:59 07:59 15:59 Intake Total 500 450 120 Output Total 500 Balance 500 -50 120 Laboratory Tests 09/14/23 06:11 09/14/23 06:11 09/13/23 09/13/23 09/13/23 11:08 14:40 16:25 WBC RBC Hgb Hct MCV MCH MCHC RDW Plt Count MPV Immature Gran % (Auto) Neut % (Auto) Lymph % (Auto) [place] % (Auto) Eos % (Auto) Baso % (Auto) Lymph # (Auto) [place] # (Auto) Eos # (Auto) Baso # (Auto) Abs Immat Gran (auto) Absolute Neuts (auto) Absolute Nucleated RBC Nucleated RBC % Sodium Potassium Chloride Carbon Dioxide Anion Gap BUN Creatinine Estim Creat Clear Calc Estimated GFR Glucose POC Capillary Glucose 109 H 93 122 H Calcium Phosphorus Albumin 09/13/23 09/14/23 09/14/23 20:02 06:11 07:49 WBC 9.9 RBC 3.20 L Hgb 9.6 L Hct 31.1 L MCV 97.2 MCH 30.0 MCHC 30.9 L RDW 13.0 Plt Count 184 MPV 10.8 H Immature Gran % (Auto) 0.4 Neut % (Auto) 88.7 H Lymph % (Auto) 6.2 L [place] % (Auto) 4.6 Eos % (Auto) 0.0 Baso % (Auto) 0.1 L Lymph # (Auto) 0.62 L [place] # (Auto) 0.5 Eos # (Auto) 0.0 Baso # (Auto) 0.0 Abs Immat Gran (auto) 0.04 H Absolute Neuts (auto) 8.8 H Absolute Nucleated RBC 0.0 Nucleated RBC % 0.0 Sodium 137 Potassium 4.6 Chloride 106 Carbon Dioxide 21 L Anion Gap 10 BUN 56 H Creatinine 3.00 H Estim Creat Clear Calc 14 Estimated GFR 15 L Glucose 168 H POC Capillary Glucose 191 H 149 H Calcium 8.1 L Phosphorus 6.2 H Albumin 3.4 L Post-procedural complaints: none Patient Feedback: Patient satisfied with anesthetic care.
--- NOTE | 2023-09-14 09:23 | PM.IMPN ---
Progress Note: A&P Assessment and Plan (1) Closed hip fracture: Code(s): S72.009A - Fracture of unspecified part of neck of unspecified femur, initial encounter for closed fracture Status: Deleted Assessment and Plan: Patient presents with hip pain after a fall and found to have a right IT femur fracture. Suspect she had an initial incomplete fracture given the hip pain for a few days prior to the event. Orthopedics consulted and patient underwent ORIF of the right IT fracture 09/13/23. Patient appears to have toelrated the procedure well. Continue current pain management Xarelto started for DVT prophylaxis - monitor for episodes of bleeding PT/OT. Plan for SNF placement. (2) A-fib: Qualifiers: Atrial fibrillation type: persistent (not longstanding) Qualified Code(s): I48.19 - Other persistent atrial fibrillation Code(s): I48.91 - Unspecified atrial fibrillation Status: Chronic Assessment and Plan: Her EKG showing atrial flutter/tachycardia. Tele showing AFlutter with variable conduction. She has a hx of pAFib and not on parts counterman anticoagulation due to severe episode of epistaxis. Heart rate controlled. Continue Coreg. Continue to monitor on telemetry (3) CHF (congestive heart failure): Code(s): I50.9 - Heart failure, unspecified Status: Acute Assessment and Plan: She has a hx of diastolic CHF. Echo Nov 2021 showing EF 60-65% with Grade I diastolic dysfunction. Mild edema noted on CXR but not fluid overloaded clinically; could be related to recent change to AFib. BNP 7190 Lasix IV once given 09/13 but Cr up slightly She remains on room air. Lungs clear. [place] she has chronic diastolic CHF Cr stable. Lasix resumed. Follow closely. (4) CKD (chronic kidney disease): Code(s): N18.9 - Chronic kidney disease, unspecified Status: Acute Assessment and Plan: She has chronic CKD and baseline Cr 2.5-2.8. Cr was up to 3.1 but slightly better today On IVF until eating normally. Monitor closely with lasix on board now (5) CAD (coronary artery disease): Code(s): I25.10 - Atherosclerotic heart disease of [place] coronary artery without angina pectoris Status: Acute Assessment and Plan: Stable. Not on ASA or statin. Coreg resumed. (6) COPD (chronic obstructive pulmonary disease): Code(s): J44.9 - Chronic obstructive pulmonary disease, unspecified Status: Acute Assessment and Plan: Stable. No wheezing. (7) HTN (hypertension): Qualifiers: Hypertension type: unspecified Qualified Code(s): I10 - Essential (primary) hypertension Code(s): I10 - Essential (primary) hypertension Status: Chronic Assessment and Plan: Patient's blood pressure was reviewed on 09/14 Blood pressure better controlled. Will continue to monitor (8) Diabetes mellitus: Code(s): E11.9 - Type 2 diabetes mellitus without complications Status: Acute Assessment and Plan: A1c 6.4. The patient's blood glucose was reviewed on 09/14 Glucose remains reasonably well controlled. Continue AccuCheks covering with sliding scale. Hypoglycemia protocol available as needed. Continue to monitor (9) Anemia: Code(s): D64.9 - Anemia, unspecified Status: Acute Assessment and Plan: Patient has anemia of chronic disease and has been followed by Heme for this. hgb 11.1 on admission. Suspect acute on chronic anemia with acute blood loss from the fracture. Hgb 9.6 today. Follow Plan DVT prophylaxis - Xarelto Code status - full Subjective Date/time seen: 09/14/23 09:23 Interval history: 77yo female with CKD, HTN, dCHF, CAD and diabetes here for hip pain after a fall and found to have right femur fx.?? Had surgical repair of the hip fracture yesterday. Was able to get up to the chair today. No CP or SOB. No n/v. Pain rated higher since moving to
[2023-09-14 12:28] LABS: Glucose Point of Care 217 mg/dl (65-105)
[2023-09-14] MEDS: INSULIN ASPART (*BKC) 100 UNITS/ML SUB-Q (12:28)
[2023-09-14] MEDS: RIVAROXABAN 10 MG TABLET PO (16:41)
[2023-09-14 17:32] LABS: Glucose Point of Care 169 mg/dl (65-105)
[2023-09-14 20:30] LABS: Glucose Point of Care 204 mg/dl (65-105)
[2023-09-14] MEDS: ONDANSETRON INJ 4 MG/2 ML VIAL IV PUSH (21:10)
[2023-09-15] VITALS (8 sets, daily range): BP systolic 124–125; BP diastolic 53–57; PULSE 60–71; RESP 14–16; TEMP 36.5–37; O2SAT 92–93
[2023-09-15 06:28] LABS: Hematocrit 28.3 % (37.0-47.0); Hemoglobin 8.8 g/dL (12.0-15.0); Mean Corpuscular HGB Conc 31.1 g/dl (32-36); Mean Corpuscular Hemoglobin 29.9 pg (26-34); Mean Corpuscular Volume 96.3 fl (80-100); Mean Platelet Volume 10.7 fl (7.4-10.4); Platelet Count Result 184 k/mm3 (150-375); Red Blood Count 2.94 M/mm3 (4.2-5.4); Red Cell Distribution Width 13.1 % (11.5-14.5); White Blood Count 10.8 K/mm3 (4.5-10.0)
[2023-09-15 06:42] LABS: Anion Gap 10 mmol/L (8-16); Blood Urea Nitrogen 64 mg/dL (7-17); Calcium 8.2 mg/dL (8.4-10.2); Carbon Dioxide 22 mmol/L (22-30); Chloride 103 mmol/L (98-107); Estimated CRCL calculation 13 ml/min; Estimated Glomerular Filt Rate 14; Glucose 138 mg/dL (65-110); Potassium 4.4 mmol/L (3.4-5.0); Sodium 135 mmol/L (137-145)
[2023-09-15 07:35] LABS: Glucose Point of Care 132 mg/dl (65-105)
[2023-09-15] MEDS: hydrALAZINE HCL 25 MG TABLET PO ×2 (08:31→17:19)
[2023-09-15] MEDS: polyethylene glycoL 3350 17 GM POWD.PACK PO (08:31)
[2023-09-15] MEDS: FUROSEMIDE 20 MG TABLET PO (08:31)
[2023-09-15] MEDS: PROMETHAZINE HCL 25 MG TABLET PO (08:31)
[2023-09-15] MEDS: dilTIAZem HCL CD 240 MG CAP.24HR PO (08:31)
[2023-09-15] MEDS: SENNA/DOCUSATE SODIUM TABLET 2 TAB PO ×2 (08:31→17:19)
[2023-09-15] MEDS: cycloSPORINE 0.4 ML OPHTH SOLUTION 1 DROP EACH EYE (08:31)
[2023-09-15] MEDS: EZETIMIBE 10 MG TABLET PO (08:31)
[2023-09-15] MEDS: carvediloL 12.5 MG TABLET PO (08:31)
[2023-09-15] MEDS: HYDROcodone/acetaminophen (*CRX) 5-325 MG TABLET 1 TAB PO (08:32)
[2023-09-15 11:46] LABS: Glucose Point of Care 143 mg/dl (65-105)
--- NOTE | 2023-09-15 12:23 | PM.PNORT ---
Progress Note: A&P Assessment and Plan (1) Intertrochanteric fracture of right hip: Qualifiers: Encounter type: subsequent encounter Fracture alignment: displaced Fracture healing: with routine healing Fracture type: closed Qualified Code(s): S72.141D - Displaced intertrochanteric fracture of right femur, subsequent encounter for closed fracture with routine healing Code(s): S72.141A - Displaced intertrochanteric fracture of right femur, initial encounter for closed fracture Status: Acute Plan 77-year-old female postop day two ORIF right IT hip fracture. Slow progress with therapy as expected but overall for postop day two, doing as expected. Certainly is going to need placement. I will follow while she is in hospital. Discharge and follow-up instructions placed in to the discharge section. Following. Subjective Subjective Date/Time Seen: 09/15/23 12:23 Post Op day: 2 Principal diagnosis: ORIF right IT hip fracture Interval history: 69-year-old female postop day two ORIF right IT hip fracture. Tolerating therapy. A little bit sore as expected. Exam Const: General: cooperative and no acute distress Extrem: Other: Right hip wounds dry. Minimal swelling and no bruising. Neurovascular status intact right lower extremity. Soreness in the right hip area as expected with manipulation. Femur moves as a unit. Objective Data Vital Signs Vital Signs: Vital Signs - 24 hr 09/14/23 16:00 09/14/23 14:00 09/14/23 21:08 Temperature 98.1 F Pulse Rate 65 63 70 Respiratory Rate 16 Blood Pressure 135/68 Pulse Oximetry 98 Oxygen Delivery 09/14/23 21:30 09/14/23 21:08 09/15/23 00:00 Temperature 98.4 F Pulse Rate 59 L 65 69 Respiratory Rate 14 Blood Pressure 129/51 L Pulse Oximetry 91 Oxygen Delivery 09/15/23 05:26 09/15/23 04:00 09/15/23 08:31 Temperature 97.7 F Pulse Rate 65 64 65 Respiratory Rate 14 Blood Pressure 124/57 L Pulse Oximetry 92 Oxygen Delivery 09/15/23 08:00 09/15/23 08:00 Temperature Pulse Rate 60 Respiratory Rate Blood Pressure Pulse Oximetry Oxygen Delivery Room Air Intake/Output Intake/Output: Intake & Output 11/26/23 11/27/23 11/28/23 11/29/23 23:59 23:59 23:59 23:59 Intake Total 500 / 500 950 / 950 870 / 870 Output Total 900 / 900 400 / 300.0 1000 / 950.0 Balance -900 / -900 100 / 200.0 -50 / 0 870 / 870 Meds/Results Medications: Active Medications Generic Name Dose Route Start Last Admin Trade Name Freq PRN Reason Stop Dose Admin Acetaminophen 650 mg 09/13/23 17:17 Acetaminophen 325 Mg Tablet PO Q6H PRN Mild Pain (1-3) or Fever Hydrocodone Bitart/Acetaminophen 1 tab 09/13/23 17:17 09/15/23 08:32 Hydrocodone/Acetaminophen (*Crx) 5-325 Mg Tablet PO 1 tab Q3H PRN Administration Pain Rated 4-6 Hydrocodone Bitart/Acetaminophen 2 tab 09/13/23 17:17 Hydrocodone/Acetaminophen (*Crx) 5-325 Mg Tablet PO Q6H PRN Pain Rated 7-10 Carvedilol 12.5 mg 09/12/23 09:00 09/15/23 08:31 Carvedilol 12.5 Mg Tablet PO 12.5 mg Q12HR SUKUMAR Administration Cyclosporine 1 drop 09/12/23 09:00 09/15/23 08:31 Cyclosporine 0.4 Ml Ophth Solution EACH EYE 1 drop DAILY SUKUMAR Administration Dextrose 12.5 gm 09/12/23 09:36 Dextrose 50% 25 Gm/50 Ml Syringe IV PUSH PRN PRN Hypoglycemia Protocol Diltiazem HCl 240 mg 09/12/23 09:00 09/15/23 08:31 Diltiazem Hcl Cd 240 Mg Cap.24hr PO 240 mg DAILY SUKUMAR Administration Ezetimibe 10 mg 09/14/23 09:00 09/15/23 08:31 Ezetimibe 10 Mg Tablet PO 10 mg DAILY SUKUMRA Administration Famotidine 10 mg 09/13/23 17:17 Famotidine 10 Mg Tablet PO AC PRN Heartburn Furosemide 40 mg 09/14/23 09:00 09/14/23 08:52 Furosemide 40 Mg Tablet PO 40 mg TuFr@0900 SUKUAMR Administration Furosemide 20 mg 09/15/23 09:00 09/15/23 08:31 Furosemide 20 Mg Tablet PO
--- NOTE | 2023-09-15 13:56 | PM.DS ---
DS: Admitting Diagnosis Discharge Date 09/15/23 Admitting Diagnosis hip pain DS: Discharge Diagnosis Discharge Diagnosis (1) Closed hip fracture: Code(s): S72.009A - Fracture of unspecified part of neck of unspecified femur, initial encounter for closed fracture Status: Deleted Assessment and Plan: Patient presents with hip pain after a fall and found to have a right IT femur fracture. Suspect she had an initial incomplete fracture given the hip pain for a few days prior to the event. Orthopedics consulted and patient underwent ORIF of the right IT fracture 09/13/23. Patient appears to have toelrated the procedure well. Continue current pain management Xarelto started for DVT prophylaxis - monitor for episodes of bleeding PT/OT. Plan for SNF placement. (2) A-fib: Qualifiers: Atrial fibrillation type: persistent (not longstanding) Qualified Code(s): I48.19 - Other persistent atrial fibrillation Code(s): I48.91 - Unspecified atrial fibrillation Status: Chronic Assessment and Plan: Her EKG showing atrial flutter/tachycardia. Tele showing AFlutter with variable conduction. She has a hx of pAFib and not on fci anticoagulation due to severe episode of epistaxis. Heart rate controlled. Continue Coreg. Continue to monitor on telemetry (3) CHF (congestive heart failure): Code(s): I50.9 - Heart failure, unspecified Status: Acute Assessment and Plan: She has a hx of diastolic CHF. Echo Nov 2021 showing EF 60-65% with Grade I diastolic dysfunction. Mild edema noted on CXR but not fluid overloaded clinically; could be related to recent change to AFib. BNP 7190 Lasix IV once given 09/13 but Cr up slightly She remains on room air. Lungs clear. [place] she has chronic diastolic CHF Cr stable. Lasix resumed. Follow closely. (4) CKD (chronic kidney disease): Code(s): N18.9 - Chronic kidney disease, unspecified Status: Acute Assessment and Plan: She has chronic CKD and baseline Cr 2.5-2.8. Cr was up to 3.1 but slightly better today On IVF until eating normally. Monitor closely with lasix on board now (5) CAD (coronary artery disease): Code(s): I25.10 - Atherosclerotic heart disease of [place] coronary artery without angina pectoris Status: Acute Assessment and Plan: Stable. Not on ASA or statin. Coreg resumed. (6) COPD (chronic obstructive pulmonary disease): Code(s): J44.9 - Chronic obstructive pulmonary disease, unspecified Status: Acute Assessment and Plan: Stable. No wheezing. (7) HTN (hypertension): Qualifiers: Hypertension type: unspecified Qualified Code(s): I10 - Essential (primary) hypertension Code(s): I10 - Essential (primary) hypertension Status: Chronic Assessment and Plan: Patient's blood pressure was reviewed on 09/14 Blood pressure better controlled. Will continue to monitor (8) Diabetes mellitus: Code(s): E11.9 - Type 2 diabetes mellitus without complications Status: Acute Assessment and Plan: A1c 6.4. The patient's blood glucose was reviewed on 09/14 Glucose remains reasonably well controlled. Continue AccuCheks covering with sliding scale. Hypoglycemia protocol available as needed. Continue to monitor (9) Anemia: Code(s): D64.9 - Anemia, unspecified Status: Acute Assessment and Plan: Patient has anemia of chronic disease and has been followed by Heme for this. hgb 11.1 on admission. Suspect acute on chronic anemia with acute blood loss from the fracture. Hgb 9.6 today. Follow Plan DVT prophylaxis - Xarelto Code status - full DS: Summary Hospital Course Hospital Course: 77yo female with CKD, HTN, dCHF, CAD and diabetes here for hip pain after a fall and found to have right femur fx.? Patient presents with hip pain after a fall and found to have a right IT femur
[2023-09-15] MEDS: HYDROcodone/acetaminophen (*CRX) 5-325 MG TABLET 2 TAB PO (14:02)
[2023-09-15 16:26] LABS: SARS-CoV-2 RNA PCR Negative (Negative)
[2023-09-15 16:54] LABS: Glucose Point of Care 144 mg/dl (65-105)
[2023-09-15] MEDS: RIVAROXABAN 10 MG TABLET PO (17:20)
== END 2023-09-15 18:40 | DRG 481 ==
LOC: ANHED 22:10 → ANH3MEDSUR 22:59
PROVIDERS: Internal Medicine; Orthopaedic Surgery; Admitting Provider Internal Medicine; Emergency Provider Emergency Medicine; PCP Family Medicine; Visit Provider Student in an Organized Health Care Education/Training Program
PROC: 0QS634Z Reposition Right Upper Femur with Internal Fixation Device, Percutaneous Approach (ICD-10-PCS; CPT 27245; principal; 2023-09-13 15:30)
DX: S72.141A Displaced intertrochanteric fracture of right femur, initial encounter for closed fracture (principal); D62 Acute posthemorrhagic anemia; I13.0 Hypertensive heart and chronic kidney disease with heart failure and stage 1 through stage 4 chronic kidney disease, or unspecified chronic kidney disease; N18.4 Chronic kidney disease, stage 4 (severe); I48.92 Unspecified atrial flutter; I50.32 Chronic diastolic (congestive) heart failure; E11.22 Type 2 diabetes mellitus with diabetic chronic kidney disease; Z20.822 Contact with and (suspected) exposure to COVID-19; W19.XXXA Unspecified fall, initial encounter; I48.0 Paroxysmal atrial fibrillation; D64.9 Anemia, unspecified; M19.90 Unspecified osteoarthritis, unspecified site; F41.9 Anxiety disorder, unspecified; I25.10 Atherosclerotic heart disease of native coronary artery without angina pectoris; J44.9 Chronic obstructive pulmonary disease, unspecified; K21.9 Gastro-esophageal reflux disease without esophagitis; I34.0 Nonrheumatic mitral (valve) insufficiency; N25.0 Renal osteodystrophy; I25.2 Old myocardial infarction; Z79.4 Long term (current) use of insulin; Z87.891 Personal history of nicotine dependence
CPT/HCPCS: 36415; 71045; 73502; 80048; 80053; 80069; 81001; 82948; 83036; 83735; 83880; 84443; 85025; 85027; 87635; 93005; 96374; 97110; 97161; 97166; 97530; 97535; 99199; 99285; A9270; C1713; J0690; J1100; J1170; J1815; J1940; J2270; J2405; J2704; J3010; J7030; J7120

== ENCOUNTER 2023-12-09 09:11 | Observation (INO) | payer MEDICARE, SELFPAY ==
[2023-12-09] VITALS (12 sets, daily range): BP systolic 121–133; BP diastolic 53–77; PULSE 54–88; RESP 16–26; TEMP 36.2–36.6; O2SAT 88–99; BMI 23.1
--- NOTE | 2023-12-09 | ECHO_ITS ---
Patient Info Name: Vicente Schofield Age: 78 years : 1945 Gender: Female Ht: 67 in Wt: 155 lbs BSA: 1.83 m2 HR: 58 bpm BP: 133 / 77 mmHg Heart Rhythm: Atrial Fibrillation Technical Quality: Fair Exam Date: 12/09/2023 4:12 PM Exam Location: Echo Lab Exam Room: [facility] Patient Status: Inpatient Admit Date: 12/09/2023 Staff Ordering Physician: Maxine Xie APRN [employer] Designer: Katarzyna Butcher RDCS Attending Provider: Lovely Allison MD Referring Physician: Anne-Marie QUACH; Exam Type: CA echo doppler color flow Study Info Indications - CHF HX/O MVR/RING Complete two-dimensional, color flow and Doppler transthoracic echocardiogram is performed. Summary 1. Complete two-dimensional, color flow and Doppler transthoracic echocardiogram is performed. 2. Normal left ventricular size and systolic contractility. 3. Severe biatrial enlargement. 4. 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 5. Trivial MR. 6. Normal aortic valve. 7. Moderately elevated PA pressure. 8. Atrial fibrillation. Left Ventricle Left ventricular chamber dimension is normal. Left ventricular systolic function is normal, estimated at 55-60%. Right Ventricle Right ventricular chamber dimension is normal. Left Atria Left atrial chamber dimension is severely enlarged. Right Atria Right atrial chamber dimension is severely enlarged. Aortic Valve The aortic valve is normal. Pulmonic Valve The pulmonic valve is not well visualized. There is mild pulmonic regurgitation. Mitral Valve The annuloplasty ring prosthetic mitral valve leaflefts are Empty. There is trace regurgitation of the annuloplasty ring prosthetic mitral valve. Tricuspid Valve The tricuspid valve leaflets are normal. There is mild tricuspid valve regurgitation. Moderate pulmonary hypertension, estimated pulmonary arterial systolic pressure is 60 mmHg. Pericardium/Pleural The pericardium appears normal. Aorta The aortic root size at the sinus of Valsalva is normal. Left Ventricular Outflow Tract Name Value Normal LVOT 2D LVOT Diameter 2.0 cm LVOT Doppler LVOT Peak Gradient 4 mmHg LVOT Mean Gradient 2 mmHg LVOT VTI 22 cm LVOT VTI/AV VTI Ratio 1.1 LVOT Stroke Volume 68 ml LVOT CO 12.1 l/min LVOT CI 6.6 l/min/m2 Pulmonic Valve Name Value Normal RVOT Doppler RVOT Peak Gradient 1 mmHg PV Doppler PV Peak Gradient 2 mmHg PV Regurgitation Doppler MI Peak End Diastolic Velocity 155 cm/s Mitral Valve
--- NOTE | ~2023-12-09 | XR_ITS ---
EXAMINATION: XR chest 1V portable INDICATION: Shortness of breath TECHNIQUE: Portable AP chest at 0949 hours COMPARISON: 09/11/2023 FINDINGS: Cardiomegaly is noted. The lungs are free of acute opacities. No pleural effusion or pneumo thorax. Changes of cardiac valve repair are noted. Surgical clips project in the right shoulder regio nWendy IMPRESSION: 1. Cardiomegaly. Reviewed, dictated and finalized at location [facility]. E INSPECTOR IMPRESSION: 1. Cardiomegaly.
--- NOTE | 2023-12-09 09:24 | ECG_ITS ---
Measurements Intervals [place] Rate: 85 P: MO: 0 QRS: -17 QRSD: 133 T: 96 QT: 411 QTc: 489 Interpretive Statements ATRIAL FIBRILLATION INTRAVENTRICULAR CONDUCTION DELAY [130+ ms QRS DURATION] ABNORMAL ECG COMPARED TO ECG 09/11/2023 20:42:19 NO DIFFERENCE Electronically Signed On 12-10-2023 12:08:31 COMPENSATION VICE PRESIDENT by Devin Giles M.D.
--- NOTE | 2023-12-09 09:26 | ED.DIZZY ---
HPI - Dizziness General Chief Complaint: Dizziness <Fox Martin PA-C - Last Filed: 12/09/23 17:55> Stated Complaint: dizzy, O2 desat with movement <Fox Martin PA-C - Last Filed: 12/09/23 17:55> Time Seen by Provider: 12/09/23 09:11 <Fox Martin PA-C - Last Filed: 12/09/23 17:55> Source: patient <Fox Martin PA-C - Last Filed: 12/09/23 17:55> Mode of arrival: EMS <Fox Martin PA-C - Last Filed: 12/09/23 17:55> Limitations: no limitations <Fox Martin PA-C - Last Filed: 12/09/23 17:55> History of Present Illness HPI Narrative: This is a 78-year-old female with multiple comorbidities including CHF, CKD, CAD, AFib who presents to the ED via EMS from [facility] for chief complaint of lightheadedness beginning this morning. Patient reports that she felt faint while in a seated position and it seemed to worsen whenever she stood up. States she has not been feeling well lately, feeling a little nauseous. Patient reports that she has been in acute CHF exacerbation before but has not been feeling overtly short of breath. Denies associated chest pain, vomiting, full syncopal episode. Denies fevers, chills, cough, leg swelling, palpitations, abdominal pain. She is unsure of any recent medication changes. On arrival, patient was placed on 2 L of oxygen which she does not normally use. EMS and nursing staff noticed that she is hypoxic in the mid to upper 80s whenever moving or talking. <Fox Martin PA-C - Last Filed: 12/09/23 17:55> Related Data Home Medications: Home Medications Medication Instructions Recorded Confirmed cyclosporine 0.05 % eye drops 1 drop ophthalmic (eye) DAILY 10/24/19 12/09/23 (Restasis MultiDose) carvedilol 12.5 mg tablet 25 mg PO Q12H 03/09/21 12/09/23 potassium chloride 20 mEq 20 meq PO DAILY 03/09/21 12/09/23 tablet,extended release(part/cryst) (Klor-Con M) ezetimibe 10 mg tablet 10 mg PO DAILY 09/11/23 12/09/23 furosemide 40 mg tablet (Lasix) 40 mg PO DAILY 09/11/23 12/09/23 acetaminophen 325 mg capsule 325 mg PO Q6H PRN Pain 11/09/23 12/09/23 (Tylenol) aspirin 81 mg tablet 81 mg PO DAILY 12/09/23 12/09/23 cyanocobalamin (vitamin B-12) 50 50 mcg PO DAILY 12/09/23 12/09/23 mcg tablet (Vitamin B-12) diphenhydramine 25 1 tablet PO HS PRN Insomnia 12/09/23 12/09/23 mg-acetaminophen 500 mg tablet (Tylenol PM Extra Strength) famotidine 10 mg tablet 10 mg PO DAILY PRN Heartburn 12/09/23 12/09/23 ferrous sulfate 27 mg iron tablet 27 mg PO DAILY 12/09/23 12/09/23 melatonin 5 mg tablet 5 mg PO HS PRN INSOMNIA 12/09/23 12/09/23 polyethylene glycol 3350 17 gram 17 g PO DAILY PRN CONSTIPATION 12/09/23 12/09/23 oral powder packet <Fox Martin PA-C - Last Filed: 12/09/23 17:55> Allergies/Adverse Reactions: Allergies Allergy/AdvReac Type Severity Reaction Status Date / Time amiodarone Allergy Severe Unresponsiv Verified 09/11/23 20:04 e <Fox Martin PA-C - Last Filed: 12/09/23 17:55> Review of Systems Review of Systems: All systems as dictated in HPI <Fox Martin PA-C - Last Filed: 12/09/23 17:55> [facility] Past Medical History Medical History: Medical History (Updated 12/09/23 @ 11:11 by Fox Martin PA-C) A-fib Paroxysmal Acute exacerbation of CHF (congestive heart failure) Acute kidney injury superimposed on chronic kidney disease Acute on chronic diastolic heart failure Acute on chronic renal failure Anemia Anxiety Anxiety Arthritis Bronchitis CAD (coronary artery disease) 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 Chronic kidney disease, stage 4 (severe) CKD (chronic kidney disease) COPD (chronic obstructive pulmonary disease) Diabetes mellitus Erythropoietin deficiency anemia GERD (gastroesophageal reflux disease) History of ventricular tachy
[2023-12-09 09:44] LABS: Basophils Absolute Auto 0.1 K/mm3 (0.0-0.1); Basophils Percent Auto 0.9 % (0.2-1.2); Eosinophils Absolute Auto 0.2 K/mm3 (0-0.3); Eosinophils Percent Auto 2.3 % (0-4.4); Hematocrit 31.4 % (37.0-47.0); Hemoglobin 9.2 g/dL (12.0-15.0); Immature Granulocyte Absolute 0.04 K/mm3 (0.00-0.031); Immature Granulocyte Percent A 0.5 % (0-0.5); Lymphocytes Absolute Auto 1.22 K/mm3 (0.9-3.2); Lymphocytes Percent Auto 15.4 % (18.3-44.2); Mean Corpuscular HGB Conc 29.3 g/dl (32-36); Mean Corpuscular Hemoglobin 28.1 pg (26-34); Mean Platelet Volume 9.9 fl (7.4-10.4); Monocytes Absolute Auto 0.6 K/mm3 (0.1-0.6); Monocytes Percent Auto 6.9 % (2.6-8.5); Neutrophils Absolute Auto 5.9 K/mm3 (1.3-6.7); Platelet Count Result 304 k/mm3 (150-375); Red Blood Count 3.27 M/mm3 (4.2-5.4); Red Cell Distribution Width 13.8 % (11.5-14.5); White Blood Count 7.9 K/mm3 (4.5-10.0)
[2023-12-09 09:53] LABS: INR 1.1; Prothrombin Time 14.4 Seconds (11.1-14.7)
[2023-12-09 09:54] LABS: Partial Thromboplastin Time 26.7 SECONDS (22.3-36.8)
[2023-12-09 09:56] LABS: Alanine Aminotransferase 11 U/L (6-35); Albumin Level 3.7 g/dL (3.5-5.1); Alkaline Phosphatase 67 U/L (38-126); Anion Gap 11 mmol/L (8-16); Aspartate Amino Transferase 15 U/L (14-36); Bilirubin,Total 0.6 mg/dL (0.2-1.3); Blood Urea Nitrogen 37 mg/dL (7-17); Calcium 8.4 mg/dL (8.4-10.2); Carbon Dioxide 27 mmol/L (22-30); Chloride 100 mmol/L (98-107); Estimated CRCL calculation 14 ml/min; Estimated Glomerular Filt Rate 15; Glucose 294 mg/dL (65-110); Potassium 3.7 mmol/L (3.4-5.0); Sodium 138 mmol/L (137-145)
[2023-12-09 10:03] LABS: Anisocytosis 1+ (NORMAL); Hypochromasia 1+ (NORMAL); Ovalocytes 1+ (NORMAL); Platelet Estimate Adequate (Adequate); Schistocytes None Seen (NORMAL)
[2023-12-09 10:04] LABS: NT Pro B Type Natriuretic Pept 12500 pg/mL (19.9-100)
[2023-12-09 10:10] LABS: Troponin I 0.015 ng/mL (0.000-0.034)
[2023-12-09 10:52] LABS: Appearance Urine Clear (Clear); Bacteria Urine None Seen /hpf; Bilirubin Urine Negative (Negative); Blood Urine Negative (Negative); Color Urine Yellow (Yellow); Glucose Urine UA Trace mg/dL (Negative); Ketones Urine Negative (Negative); Leukocyte Esterase Ur Negative LEU/UL (Negative); Need Manual Microscopic Reviewed; Nitrate Urine Negative (Negative); Protein Urine 2+ mg/dL (Negative); RBC Urine 0-2 /hpf (0-2); Specific Grav Ur 1.016 (1.001-1.035); Squamous Epithelial Cell Urine None seen /hpf (Few); WBC Urine 0-5 /hpf
[2023-12-09 10:54] LABS: Add Urine Microscopic? YES
[2023-12-09] MEDS: FUROSEMIDE INJ 40 MG/4 ML VIAL 60 MG IV PUSH (11:01)
--- NOTE | 2023-12-09 12:02 | PC.NURSE ---
report given to Suzy in IMU
--- NOTE | 2023-12-09 13:20 | ADMGEN ---
This patient, Vicente Schofield, was admitted to IMU Room 206-01. Patient/family oriented to hospital policies and general routines including ID bracelet, bed and alarms, visiting hours, pain management, procedures, bathroom and other care routines, personal items, smoking policy, room service/diet, and visiting hours. Information on how to activate the Rapid Response Team has been discussed. Patient/Family are encouraged to report perceived risks to care and to ask questions if they do not understand what they are told or what they should do.
--- NOTE | 2023-12-09 14:57 | PM.IMHP ---
H&P: HPI History of Present Illness Date/Time: 12/09/23 14:57 Chief Complaint: Hypoxia, Nausea, Lightheadedness Narrative: 78 y/o F presents here with lightheadedness, nausea, and hypoxia with PMH of CHF, CKD, CAD/MO, AFib (paroxysml), COPD, HTN, DM2, anemia, and HLD. Patient presents here for evaluation of lightheadedness that began this morning from [place] via EMS. Exacerbated by position changes, i.e. seated position to standing. Reports general malaise and mild nausea that started on 12/07. Denies any worsening exertional dyspnea or shortness of breath, has dyspnea at baseline. Reports more immobility recently due to recent fracture, has just started PT for injury. However, when facility evaluated her this morning she was found to be hypoxic in the mid to upper 80s. Placed on 2L by EMS and able to maintain sat above 92%. Patient does not have a supplemental O2 requirement at baseline. +brief chills 1-2 nights ago. Denies any increased lower extremity swelling, palpitations, fevers, cough, abdominal discomfort, or diarrhea. Has chronic constipation secondary to iron supplements, LBM 1-2 days ago. No known sick contacts, no increased isolation at facility. Per patient, 20 mg of Lasix PO x5 days per week, and 40 mg PO two days per week. Patient believes she has been getting 20 mg PO daily, per paperwork from facility getting 40 mg PO daily. Initial VS at presentation: 97.9 F, HR 88, RR 18, 128/61, 88% on RA. Placed on 2L NC with subsequent increase in sat at 99%. ED workup showed no leukocytosis, stable anemia with a hemoglobin of 9.2, creatinine 3.0 (previously 3.2 in August of 2023), glucose 294, BNP 1500, and UA not suspicious for UTI. CXR showed cardiomegaly. Review of Systems Review of Systems: All systems reviewed & are unremarkable except as noted in HPI and below [facility] Past Medical History Medical History (Updated 12/09/23 @ 11:11 by Fox Martin PA-C) A-fib Paroxysmal Acute exacerbation of CHF (congestive heart failure) Acute kidney injury superimposed on chronic kidney disease Acute on chronic diastolic heart failure Acute on chronic renal failure Anemia Anxiety Anxiety Arthritis Bronchitis CAD (coronary artery disease) 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, with long-term current use of insulin Type 2 diabetes mellitus without complications UTI (urinary tract infection) Surgical History Surgical History H/O cardiac catheterization H/O maze procedure H/O mitral valve repair With a ring H/O: hysterectomy Intertrochanteric fracture of right hip ORIF with trochanteric nail September 13, 2023 Family History Family History Mother Family history of diabetes mellitus in first degree relative Family history of lung cancer Father Family history of coronary artery disease Hypertension Sibling Family history of diabetes mellitus in first degree relative Social History Social History (Updated 11/09/23 @ 13:35 by Tammi Cheney CMA) Social History: She has with her for over 50 years. She emma
[2023-12-09 17:42] LABS: Glucose Point of Care 172 mg/dl (65-105)
[2023-12-09] MEDS: hydrALAZINE HCL 25 MG TABLET PO (18:45)
[2023-12-09 19:40] LABS: Influenza A QL RT-PCR Negative (Negative); Influenza B QL RT-PCR Negative (Negative); RSV RNA, RT-PCR Negative (Negative); SARS-CoV-2 RNA PCR Negative (Negative)
[2023-12-09] MEDS: carvediloL 12.5 MG TABLET 25 MG PO (20:29)
[2023-12-09 20:44] LABS: Glucose Point of Care 165 mg/dl (65-105)
[2023-12-10] VITALS (13 sets, daily range): BP systolic 125–143; BP diastolic 54–68; PULSE 63–79; RESP 16–20; TEMP 36.2–37.1; O2SAT 86–97
[2023-12-10] MEDS: diphenhydrAMINE HCl CAP 25 MG CAPSULE PO ×2 (02:34→20:48)
[2023-12-10 04:36] LABS: Basophils Absolute Auto 0.1 K/mm3 (0.0-0.1); Basophils Percent Auto 0.7 % (0.2-1.2); Eosinophils Absolute Auto 0.7 K/mm3 (0-0.3); Eosinophils Percent Auto 7.7 % (0-4.4); Hematocrit 30.7 % (37.0-47.0); Immature Granulocyte Absolute 0.02 K/mm3 (0.00-0.031); Immature Granulocyte Percent A 0.2 % (0-0.5); Lymphocytes Absolute Auto 1.34 K/mm3 (0.9-3.2); Lymphocytes Percent Auto 15.1 % (18.3-44.2); Mean Corpuscular HGB Conc 29.3 g/dl (32-36); Mean Corpuscular Hemoglobin 28.2 pg (26-34); Mean Corpuscular Volume 96.2 fl (80-100); Mean Platelet Volume 9.9 fl (7.4-10.4); Monocytes Absolute Auto 0.8 K/mm3 (0.1-0.6); Monocytes Percent Auto 8.8 % (2.6-8.5); Neutrophils Percent Auto 67.5 % (45.5-73.1); Platelet Count Result 286 k/mm3 (150-375); Red Blood Count 3.19 M/mm3 (4.2-5.4); Red Cell Distribution Width 13.4 % (11.5-14.5); White Blood Count 8.9 K/mm3 (4.5-10.0)
[2023-12-10 04:47] LABS: Hemoglobin A1C 6.6 % (<5.7)
[2023-12-10 04:56] LABS: Platelet Estimate Adequate (Adequate)
[2023-12-10 04:57] LABS: Anisocytosis 1+ (NORMAL); Ovalocytes 1+ (NORMAL); Schistocytes None Seen (NORMAL)
[2023-12-10 05:04] LABS: Alanine Aminotransferase 6 U/L (6-35); Albumin Level 3.2 g/dL (3.5-5.1); Alkaline Phosphatase 69 U/L (38-126); Anion Gap 8 mmol/L (8-16); Aspartate Amino Transferase 15 U/L (14-36); Bilirubin,Total 0.6 mg/dL (0.2-1.3); Blood Urea Nitrogen 39 mg/dL (7-17); Calcium 8.2 mg/dL (8.4-10.2); Carbon Dioxide 29 mmol/L (22-30); Chloride 100 mmol/L (98-107); Estimated CRCL calculation 14 ml/min; Estimated Glomerular Filt Rate 15; Glucose 103 mg/dL (65-110); Potassium 3.4 mmol/L (3.4-5.0); Sodium 137 mmol/L (137-145)
[2023-12-10 08:41] LABS: Glucose Point of Care 98 mg/dl (65-105)
[2023-12-10] MEDS: FLUTICASONE PROPIONATE 0.05% NA SPR 16 GM BTL (*BKC) 2 SPRAY NASAL ×2 (09:02→20:43)
[2023-12-10] MEDS: FERROUS SULFATE DRIED 142 MG TABCR PO (09:03)
[2023-12-10] MEDS: carvediloL 12.5 MG TABLET PO ×3 (09:03→21:50)
[2023-12-10] MEDS: POTASSIUM CHLORIDE 20 MEQ ER TABLET PO (09:03)
[2023-12-10] MEDS: EZETIMIBE 10 MG TABLET PO (09:03)
[2023-12-10] MEDS: ASPIRIN 81 MG CHEWABLE TABLET PO (09:03)
[2023-12-10] MEDS: POTASSIUM CHLORIDE 20 MEQ ER TABLET 40 MEQ PO (09:03)
[2023-12-10] MEDS: hydrALAZINE HCL 25 MG TABLET PO ×2 (09:03→16:55)
[2023-12-10] MEDS: dilTIAZem HCL CD 240 MG CAP.24HR PO (09:03)
[2023-12-10] MEDS: CYANOCOBALAMIN 250 MCG TABLET PO (09:04)
[2023-12-10] MEDS: FUROSEMIDE 40 MG TABLET PO (09:05)
[2023-12-10] MEDS: cycloSPORINE 0.4 ML OPHTH SOLUTION 1 DROP EACH EYE (09:42)
[2023-12-10 11:38] LABS: Glucose Point of Care 134 mg/dl (65-105)
--- NOTE | 2023-12-10 14:29 | PM.IMPN ---
Progress Note: A&P Assessment and Plan (1) Hypoxia: Code(s): R09.02 - Hypoxemia Status: Resolved Assessment and Plan: - does not meet SIRS criteria - new supplemental O2 requirement: 2L NC - BNP 06650 - CXR: cardiomegaly - EKG, initial: AFib, rate 85, intraventricular conduction delay, compared to previous done in August of 2023, AFib now present. Awaiting formal read. - echo, 11/2021: Mild concentric increased LV wall thickness, estimated EF 60-65% LA dimension moderately enlarged, annuloplasty ring prostatic mitral valve leaflets are empty, trace regurgitation of the annuloplasty ring prosthetic MV, no previous difference compared to April of 2021. - DDx: Viral infection, CHF exacerbation, COPD exacerbation - start diuresis, given 60 mg IVP of Lasix. Continue has 40 mg PO daily until echo results. - nebs p.r.n. - add viral PCR 12/10: Currently on 1L supplemental oxygen with easy respirations and no s/s of distress. Awaiting ECHO results. Labs negative for Influenza, RSV and COVID. Attempted to wean to RA and pt desaturated to 86%. (2) Congestive heart failure (CHF): Qualifiers: Heart failure chronicity: chronic Heart failure type: unspecified Qualified Code(s): I50.9 - Heart failure, unspecified Code(s): I50.9 - Heart failure, unspecified Status: Acute Assessment and Plan: - echo, 11/2021: Mild concentric increased LV wall thickness, estimated EF 60-65% LA dimension moderately enlarged, annuloplasty ring prostatic mitral valve leaflets are empty, trace regurgitation of the annuloplasty ring prosthetic MV, no previous difference compared to April of 2021. - Lasix 60 mg IVP, continue has 40 mg PO daily until echo results. - daily weights - I&Os 12/10: Awaiting echo results, Continue Lasix, daily weights and accurate I&O. Elevated BNP present on arrival, however, no s/s of pleural fluid or PNA. Previous EF noted to be 60-65%. Continue Potassium supplementation. (3) A-fib: Qualifiers: Atrial fibrillation type: persistent (not longstanding) Qualified Code(s): I48.19 - Other persistent atrial fibrillation Code(s): I48.91 - Unspecified atrial fibrillation Status: Chronic Assessment and Plan: - currently in AFib, rate of 85 - continue home medications: Diltiazem ER 240 mg p.o. daily and Xarelto - tele monitoring 12/10: Continue telemetry, Diltiazem and Xarelto. Rate has been well controlled with Carvedilol 25 mg q12 hrs that will be continued. (4) Diabetes mellitus: Code(s): E11.9 - Type 2 diabetes mellitus without complications Status: Acute Assessment and Plan: - initial glucose: 294 - Hypoglycemia protocol - POC blood glucose ACHS - home medication resumed/held - none, has not been on medication for approx 1 year - correct regimen ordered - low dose TIDWM and HS - A1C 6.4% on 08/2023, update. 12/10: Continue above plan and continue to monitor. A1C is 6.6. (5) CKD (chronic kidney disease): Code(s): N18.9 - Chronic kidney disease, unspecified Status: Acute Assessment and Plan: - creatinine 3.0, baseline appears to be 2.5-3.2 since 2021 - BUN 37, ECC 14, GFR 15 - trend renal function, increasing diuretic 12/10: Continue to monitor Creatinine trend. Currently pt is at her baseline, however, subject to change with the addition of more diuretic. Consider Nephrology consult as needed. (6) HTN (hypertension): Qualifiers: Hypertension type: unspecified Qualified Code(s): I10 - Essential (primary) hypertension Code(s): I10 - Essential (primary) hypertension Status: Chronic Assessment and Plan: - chronic, currently normotensive to soft - orthostatics QShift; reported lightheadedness with positional changes - continue home medications: carvedilol and hydralazine - monitor 12/10: Pt does not appear to be Orthostatic. Continue current home meds and monitor. T
[2023-12-10 16:28] LABS: Glucose Point of Care 148 mg/dl (65-105)
[2023-12-10 20:43] LABS: Glucose Point of Care 169 mg/dl (65-105)
[2023-12-11] VITALS (13 sets, daily range): BP systolic 128–153; BP diastolic 49–73; PULSE 65–84; RESP 18–28; TEMP 36.4–37.2; O2SAT 90–97
[2023-12-11 04:56] LABS: Basophils Absolute Auto 0.1 K/mm3 (0.0-0.1); Basophils Percent Auto 0.9 % (0.2-1.2); Eosinophils Absolute Auto 0.9 K/mm3 (0-0.3); Eosinophils Percent Auto 10.9 % (0-4.4); Hematocrit 31.3 % (37.0-47.0); Hemoglobin 9.2 g/dL (12.0-15.0); Immature Granulocyte Absolute 0.02 K/mm3 (0.00-0.031); Immature Granulocyte Percent A 0.2 % (0-0.5); Lymphocytes Absolute Auto 1.31 K/mm3 (0.9-3.2); Lymphocytes Percent Auto 16.2 % (18.3-44.2); Mean Corpuscular HGB Conc 29.4 g/dl (32-36); Mean Corpuscular Volume 95.1 fl (80-100); Mean Platelet Volume 10.3 fl (7.4-10.4); Monocytes Absolute Auto 0.7 K/mm3 (0.1-0.6); Monocytes Percent Auto 9.1 % (2.6-8.5); Neutrophils Absolute Auto 5.1 K/mm3 (1.3-6.7); Neutrophils Percent Auto 62.7 % (45.5-73.1); Platelet Count Result 293 k/mm3 (150-375); Red Blood Count 3.29 M/mm3 (4.2-5.4); Red Cell Distribution Width 13.6 % (11.5-14.5); White Blood Count 8.1 K/mm3 (4.5-10.0)
[2023-12-11 05:11] LABS: Alanine Aminotransferase 6 U/L (6-35); Albumin Level 3.2 g/dL (3.5-5.1); Alkaline Phosphatase 71 U/L (38-126); Anion Gap 4 mmol/L (8-16); Aspartate Amino Transferase 13 U/L (14-36); Bilirubin,Total 0.5 mg/dL (0.2-1.3); Blood Urea Nitrogen 41 mg/dL (7-17); Calcium 8.3 mg/dL (8.4-10.2); Carbon Dioxide 31 mmol/L (22-30); Chloride 102 mmol/L (98-107); Estimated CRCL calculation 14 ml/min; Estimated Glomerular Filt Rate 16; Glucose 98 mg/dL (65-110); Magnesium 2.4 mg/dL (1.6-2.3); Potassium 4.1 mmol/L (3.4-5.0); Sodium 137 mmol/L (137-145)
[2023-12-11 07:32] LABS: Glucose Point of Care 88 mg/dl (65-105)
[2023-12-11] MEDS: POTASSIUM CHLORIDE 20 MEQ ER TABLET PO (08:44)
[2023-12-11] MEDS: carvediloL 12.5 MG TABLET PO (08:44)
[2023-12-11] MEDS: EZETIMIBE 10 MG TABLET PO (08:44)
[2023-12-11] MEDS: CYANOCOBALAMIN 250 MCG TABLET PO (08:44)
[2023-12-11] MEDS: cycloSPORINE 0.4 ML OPHTH SOLUTION 1 DROP EACH EYE (08:44)
[2023-12-11] MEDS: ASPIRIN 81 MG CHEWABLE TABLET PO (08:44)
[2023-12-11] MEDS: dilTIAZem HCL CD 240 MG CAP.24HR PO (08:44)
[2023-12-11] MEDS: hydrALAZINE HCL 25 MG TABLET PO ×2 (08:44→17:46)
[2023-12-11] MEDS: FERROUS SULFATE DRIED 142 MG TABCR PO (08:44)
[2023-12-11] MEDS: FLUTICASONE PROPIONATE 0.05% NA SPR 16 GM BTL (*BKC) 2 SPRAY NASAL ×2 (08:46→21:50)
[2023-12-11] MEDS: FUROSEMIDE 20 MG TABLET PO (08:48)
[2023-12-11 11:32] LABS: Glucose Point of Care 113 mg/dl (65-105)
--- NOTE | 2023-12-11 15:42 | PM.IMPN ---
Progress Note: A&P Assessment and Plan (1) Hypoxia: Code(s): R09.02 - Hypoxemia Status: Resolved Assessment and Plan: - does not meet SIRS criteria - new supplemental O2 requirement: 2L NC - BNP 61078 - CXR: cardiomegaly - EKG, initial: AFib, rate 85, intraventricular conduction delay, compared to previous done in August of 2023, AFib now present. Awaiting formal read. - echo, 11/2021: Mild concentric increased LV wall thickness, estimated EF 60-65% LA dimension moderately enlarged, annuloplasty ring prostatic mitral valve leaflets are empty, trace regurgitation of the annuloplasty ring prosthetic MV, no previous difference compared to April of 2021. - DDx: Viral infection, CHF exacerbation, COPD exacerbation - start diuresis, given 60 mg IVP of Lasix. Continue has 40 mg PO daily until echo results. - nebs p.r.n. - add viral PCR 12/10: Currently on 1L supplemental oxygen with easy respirations and no s/s of distress. Awaiting ECHO results. Labs negative for Influenza, RSV and COVID. Attempted to wean to RA and pt desaturated to 86%. 12/11: Pt's oxygen was weaned and removed by this provider. Review of sats show that she was last at 95% on room air at noon without replacement. (2) Congestive heart failure (CHF): Qualifiers: Heart failure chronicity: chronic Heart failure type: unspecified Qualified Code(s): I50.9 - Heart failure, unspecified Code(s): I50.9 - Heart failure, unspecified Status: Acute Assessment and Plan: - echo, 11/2021: Mild concentric increased LV wall thickness, estimated EF 60-65% LA dimension moderately enlarged, annuloplasty ring prostatic mitral valve leaflets are empty, trace regurgitation of the annuloplasty ring prosthetic MV, no previous difference compared to April of 2021. - Lasix 60 mg IVP, continue has 40 mg PO daily until echo results. - daily weights - I&Os 12/10: Awaiting echo results, Continue Lasix, daily weights and accurate I&O. Elevated BNP present on arrival, however, no s/s of pleural fluid or PNA. Previous EF noted to be 60-65%. Continue Potassium supplementation. 12/11: Pt without any acute signs of exacerbation. She has tolerated her current doses of Lasix with 40 mg on Wednesday and Wednesday and 20 mg on Wednesday, Wednesday, Wednesday, and Wednesday. She appears euvolemic, and she does not appear to be decompensated. As pt has had interval improvement, cardiology not consulted and she remains on her home dose of Lasix. She had ECHO yesterday that showed severe biatrial enlargement, atrial fibrillation, normal LV size and contractility and moderately elevated PA Pressure. Her LVSF is normal with EF of 55-60%. (3) A-fib: Qualifiers: Atrial fibrillation type: persistent (not longstanding) Qualified Code(s): I48.19 - Other persistent atrial fibrillation Code(s): I48.91 - Unspecified atrial fibrillation Status: Chronic Assessment and Plan: - currently in AFib, rate of 85 - continue home medications: Diltiazem ER 240 mg p.o. daily and Xarelto - tele monitoring 12/10: Continue telemetry, Diltiazem and Xarelto. Rate has been well controlled with Carvedilol 25 mg q12 hrs that will be continued. 12/11: Continuing current meds in the setting of rate controlled well and pt's rhythm is stable. (4) Diabetes mellitus: Code(s): E11.9 - Type 2 diabetes mellitus without complications Status: Acute Assessment and Plan: - initial glucose: 294 - Hypoglycemia protocol - POC blood glucose ACHS - home medication resumed/held - none, has not been on medication for approx 1 year - correct regimen ordered - low dose TIDWM and HS - A1C 6.4% on 08/2023, update. 12/10: Continue above plan and continue to monitor. A1C is 6.6. 12/11: Continue current plan. (5) CKD (chronic kidney disease): Code(s): N18.9 - Chronic kidney disease, unspecified Status: Acute Assessment and Plan: - zabrina
--- NOTE | 2023-12-11 16:51 | PC.NURSE ---
This patient, Vicente Schofield, was transferred to [facility] on 12/11/23 at 1651. Personal belongings sent with patient. Report given to ELANA Smith. Appropriate documentation sent with patient.
[2023-12-11] MEDS: diphenhydrAMINE HCl CAP 25 MG CAPSULE PO (22:57)
[2023-12-12] VITALS (11 sets, daily range): BP systolic 126–151; BP diastolic 54–84; PULSE 70–85; RESP 16; TEMP 36.5–36.8; O2SAT 91–94
[2023-12-12 05:31] LABS: Basophils Absolute Auto 0.1 K/mm3 (0.0-0.1); Basophils Percent Auto 0.9 % (0.2-1.2); Eosinophils Absolute Auto 0.9 K/mm3 (0-0.3); Eosinophils Percent Auto 10.7 % (0-4.4); Hemoglobin 9.4 g/dL (12.0-15.0); Immature Granulocyte Absolute 0.02 K/mm3 (0.00-0.031); Immature Granulocyte Percent A 0.2 % (0-0.5); Lymphocytes Absolute Auto 1.39 K/mm3 (0.9-3.2); Mean Corpuscular HGB Conc 30.3 g/dl (32-36); Mean Corpuscular Volume 92.3 fl (80-100); Mean Platelet Volume 10.1 fl (7.4-10.4); Monocytes Absolute Auto 0.8 K/mm3 (0.1-0.6); Monocytes Percent Auto 9.8 % (2.6-8.5); Neutrophils Percent Auto 61.4 % (45.5-73.1); Platelet Count Result 288 k/mm3 (150-375); Red Blood Count 3.36 M/mm3 (4.2-5.4); Red Cell Distribution Width 13.6 % (11.5-14.5); White Blood Count 8.2 K/mm3 (4.5-10.0)
[2023-12-12 05:50] LABS: Alanine Aminotransferase 6 U/L (6-35); Albumin Level 3.3 g/dL (3.5-5.1); Alkaline Phosphatase 74 U/L (38-126); Anion Gap 5 mmol/L (8-16); Aspartate Amino Transferase 17 U/L (14-36); Bilirubin,Total 0.6 mg/dL (0.2-1.3); Blood Urea Nitrogen 41 mg/dL (7-17); Calcium 8.5 mg/dL (8.4-10.2); Carbon Dioxide 29 mmol/L (22-30); Chloride 102 mmol/L (98-107); Estimated CRCL calculation 15 ml/min; Estimated Glomerular Filt Rate 16; Glucose 108 mg/dL (65-110); Magnesium 2.4 mg/dL (1.6-2.3); Potassium 3.8 mmol/L (3.4-5.0); Sodium 136 mmol/L (137-145)
--- NOTE | 2023-12-12 08:21 | PM.IMPN ---
Progress Note: A&P Assessment and Plan (1) Hypoxia: Code(s): R09.02 - Hypoxemia Status: Resolved Assessment and Plan: - does not meet SIRS criteria - new supplemental O2 requirement: 2L NC - BNP 69747 - CXR: cardiomegaly - EKG, initial: AFib, rate 85, intraventricular conduction delay, compared to previous done in August of 2023, AFib now present. Awaiting formal read. - echo, 11/2021: Mild concentric increased LV wall thickness, estimated EF 60-65% LA dimension moderately enlarged, annuloplasty ring prostatic mitral valve leaflets are empty, trace regurgitation of the annuloplasty ring prosthetic MV, no previous difference compared to April of 2021. - DDx: Viral infection, CHF exacerbation, COPD exacerbation - start diuresis, given 60 mg IVP of Lasix. Continue has 40 mg PO daily until echo results. - nebs p.r.n. - add viral PCR 12/10: Currently on 1L supplemental oxygen with easy respirations and no s/s of distress. Awaiting ECHO results. Labs negative for Influenza, RSV and COVID. Attempted to wean to RA and pt desaturated to 86%. 12/11: Pt's oxygen was weaned and removed by this provider. Review of sats show that she was last at 95% on room air at noon without replacement. 12/12: Patient on room air at time of assessment. No distress noted. O2 Stats 93% (2) Congestive heart failure (CHF): Qualifiers: Heart failure chronicity: chronic Heart failure type: unspecified Qualified Code(s): I50.9 - Heart failure, unspecified Code(s): I50.9 - Heart failure, unspecified Status: Acute Assessment and Plan: - echo, 11/2021: Mild concentric increased LV wall thickness, estimated EF 60-65% LA dimension moderately enlarged, annuloplasty ring prostatic mitral valve leaflets are empty, trace regurgitation of the annuloplasty ring prosthetic MV, no previous difference compared to April of 2021. - Lasix 60 mg IVP, continue has 40 mg PO daily until echo results. - daily weights - I&Os 12/10: Awaiting echo results, Continue Lasix, daily weights and accurate I&O. Elevated BNP present on arrival, however, no s/s of pleural fluid or PNA. Previous EF noted to be 60-65%. Continue Potassium supplementation. 12/11: Pt without any acute signs of exacerbation. She has tolerated her current doses of Lasix with 40 mg on Wednesday and Wednesday and 20 mg on Wednesday, Wednesday, Wednesday, and Wednesday. She appears euvolemic, and she does not appear to be decompensated. As pt has had interval improvement, cardiology not consulted and she remains on her home dose of Lasix. She had ECHO yesterday that showed severe biatrial enlargement, atrial fibrillation, normal LV size and contractility and moderately elevated PA Pressure. Her LVSF is normal with EF of 55-60%. 12/12: Patient is without any acute signs of exacerbations. She presents on room air, no acute distress noted at time of assessment. Tolerating todays PO Lasix 20mg medications well. (3) A-fib: Qualifiers: Atrial fibrillation type: persistent (not longstanding) Qualified Code(s): I48.19 - Other persistent atrial fibrillation Code(s): I48.91 - Unspecified atrial fibrillation Status: Chronic Assessment and Plan: - currently in AFib, rate of 85 - continue home medications: Diltiazem ER 240 mg p.o. daily and Xarelto - tele monitoring 12/10: Continue telemetry, Diltiazem and Xarelto. Rate has been well controlled with Carvedilol 25 mg q12 hrs that will be continued. 12/11: Continuing current meds in the setting of rate controlled well and pt's rhythm is stable. 12/12: Continue current medication regimen as patient's rhythm is stable and currently is rate controlled. AM HR 85 (804) (4) Diabetes mellitus: Code(s): E11.9 - Type 2 diabetes mellitus without complications Status: Acute Assessment and Plan: - initial glucose: 294 - Hypoglycemia protocol - POC blood glucose ACHS - home medication resumed/hel
[2023-12-12] MEDS: ASPIRIN 81 MG CHEWABLE TABLET PO (08:55)
[2023-12-12] MEDS: CYANOCOBALAMIN 250 MCG TABLET PO (08:55)
[2023-12-12] MEDS: carvediloL 12.5 MG TABLET PO ×2 (08:55→20:30)
[2023-12-12] MEDS: dilTIAZem HCL CD 240 MG CAP.24HR PO (08:56)
[2023-12-12] MEDS: EZETIMIBE 10 MG TABLET PO (08:56)
[2023-12-12] MEDS: cycloSPORINE 0.4 ML OPHTH SOLUTION 1 DROP EACH EYE (08:56)
[2023-12-12] MEDS: FERROUS SULFATE DRIED 142 MG TABCR PO (08:57)
[2023-12-12] MEDS: FUROSEMIDE 20 MG TABLET PO (08:57)
[2023-12-12] MEDS: hydrALAZINE HCL 25 MG TABLET PO ×2 (08:58→17:01)
[2023-12-12] MEDS: POTASSIUM CHLORIDE 20 MEQ ER TABLET PO (08:58)
[2023-12-12] MEDS: FLUTICASONE PROPIONATE 0.05% NA SPR 16 GM BTL (*BKC) 2 SPRAY NASAL (20:30)
[2023-12-12] MEDS: diphenhydrAMINE HCl CAP 25 MG CAPSULE PO (21:59)
[2023-12-13] VITALS (11 sets, daily range): BP systolic 116–142; BP diastolic 55–68; PULSE 59–87; RESP 14–18; TEMP 36.7–36.8; O2SAT 93–95
[2023-12-13] MEDS: dilTIAZem HCL CD 240 MG CAP.24HR PO (08:29)
[2023-12-13] MEDS: FUROSEMIDE 20 MG TABLET PO (08:30)
[2023-12-13] MEDS: POTASSIUM CHLORIDE 20 MEQ ER TABLET PO (08:30)
[2023-12-13] MEDS: CYANOCOBALAMIN 250 MCG TABLET PO (08:30)
[2023-12-13] MEDS: carvediloL 12.5 MG TABLET PO ×2 (08:30→20:43)
[2023-12-13] MEDS: hydrALAZINE HCL 25 MG TABLET PO ×2 (08:30→17:03)
[2023-12-13] MEDS: ASPIRIN 81 MG CHEWABLE TABLET PO (08:30)
[2023-12-13] MEDS: EZETIMIBE 10 MG TABLET PO (08:30)
[2023-12-13] MEDS: FERROUS SULFATE DRIED 142 MG TABCR PO (08:30)
[2023-12-13] MEDS: cycloSPORINE 0.4 ML OPHTH SOLUTION 1 DROP EACH EYE (08:33)
--- NOTE | 2023-12-13 10:24 | PM.IMPN ---
Progress Note: A&P Assessment and Plan (1) Hypoxia: Code(s): R09.02 - Hypoxemia Status: Resolved Assessment and Plan: - does not meet SIRS criteria - new supplemental O2 requirement: 2L NC - BNP 06627 - CXR: cardiomegaly - EKG, initial: AFib, rate 85, intraventricular conduction delay, compared to previous done in August of 2023, AFib now present. Awaiting formal read. - echo, 11/2021: Mild concentric increased LV wall thickness, estimated EF 60-65% LA dimension moderately enlarged, annuloplasty ring prostatic mitral valve leaflets are empty, trace regurgitation of the annuloplasty ring prosthetic MV, no previous difference compared to April of 2021. - DDx: Viral infection, CHF exacerbation, COPD exacerbation - start diuresis, given 60 mg IVP of Lasix. Continue has 40 mg PO daily until echo results. - nebs p.r.n. - add viral PCR 12/10: Currently on 1L supplemental oxygen with easy respirations and no s/s of distress. Awaiting ECHO results. Labs negative for Influenza, RSV and COVID. Attempted to wean to RA and pt desaturated to 86%. 12/11: Pt's oxygen was weaned and removed by this provider. Review of sats show that she was last at 95% on room air at noon without replacement. 12/12: Patient on room air at time of assessment. No distress noted. O2 Stats 93% 12/13: Remains on room air, no respiratory distress noted on exam. (2) Congestive heart failure (CHF): Qualifiers: Heart failure chronicity: chronic Heart failure type: unspecified Qualified Code(s): I50.9 - Heart failure, unspecified Code(s): I50.9 - Heart failure, unspecified Status: Acute Assessment and Plan: - echo, 11/2021: Mild concentric increased LV wall thickness, estimated EF 60-65% LA dimension moderately enlarged, annuloplasty ring prostatic mitral valve leaflets are empty, trace regurgitation of the annuloplasty ring prosthetic MV, no previous difference compared to April of 2021. - Lasix 60 mg IVP, continue has 40 mg PO daily until echo results. - daily weights - I&Os 12/10: Awaiting echo results, Continue Lasix, daily weights and accurate I&O. Elevated BNP present on arrival, however, no s/s of pleural fluid or PNA. Previous EF noted to be 60-65%. Continue Potassium supplementation. 12/11: Pt without any acute signs of exacerbation. She has tolerated her current doses of Lasix with 40 mg on Wednesday and Wednesday and 20 mg on Wednesday, Wednesday, Wednesday, and Wednesday. She appears euvolemic, and she does not appear to be decompensated. As pt has had interval improvement, cardiology not consulted and she remains on her home dose of Lasix. She had ECHO yesterday that showed severe biatrial enlargement, atrial fibrillation, normal LV size and contractility and moderately elevated PA Pressure. Her LVSF is normal with EF of 55-60%. 12/12: Patient is without any acute signs of exacerbations. She presents on room air, no acute distress noted at time of assessment. Tolerating todays PO Lasix 20mg medications well. 12/13: She remain without signs of exacerbation today. She remains on room air, no acute distress noted and she denies any pain or shortness of breath. Tolerating medications well. (3) A-fib: Qualifiers: Atrial fibrillation type: persistent (not longstanding) Qualified Code(s): I48.19 - Other persistent atrial fibrillation Code(s): I48.91 - Unspecified atrial fibrillation Status: Chronic Assessment and Plan: - currently in AFib, rate of 85 - continue home medications: Diltiazem ER 240 mg p.o. daily and Xarelto - tele monitoring 12/10: Continue telemetry, Diltiazem and Xarelto. Rate has been well controlled with Carvedilol 25 mg q12 hrs that will be continued. 12/11: Continuing current meds in the setting of rate controlled well and pt's rhythm is stable. 12/12: Continue current medication regimen as patient's rhythm is stable and currently is rate controlled. AM HR 85 (0805) 2
[2023-12-13] MEDS: FLUTICASONE PROPIONATE 0.05% NA SPR 16 GM BTL (*BKC) 2 SPRAY NASAL (20:42)
[2023-12-13] MEDS: diphenhydrAMINE HCl CAP 25 MG CAPSULE PO (20:48)
[2023-12-14] VITALS (8 sets, daily range): BP systolic 130–183; BP diastolic 63–87; PULSE 71–86; RESP 18; TEMP 36.8; O2SAT 94
[2023-12-14 05:36] LABS: Hematocrit 30.9 % (37.0-47.0); Hemoglobin 9.4 g/dL (12.0-15.0); Mean Corpuscular HGB Conc 30.4 g/dl (32-36); Mean Platelet Volume 10.5 fl (7.4-10.4); Platelet Count Result 287 k/mm3 (150-375); Red Blood Count 3.36 M/mm3 (4.2-5.4); Red Cell Distribution Width 14.1 % (11.5-14.5); White Blood Count 7.8 K/mm3 (4.5-10.0)
[2023-12-14 05:51] LABS: Alanine Aminotransferase 6 U/L (6-35); Albumin Level 3.2 g/dL (3.5-5.1); Alkaline Phosphatase 72 U/L (38-126); Anion Gap 8 mmol/L (8-16); Aspartate Amino Transferase 14 U/L (14-36); Bilirubin,Total 0.6 mg/dL (0.2-1.3); Blood Urea Nitrogen 41 mg/dL (7-17); Calcium 8.6 mg/dL (8.4-10.2); Carbon Dioxide 27 mmol/L (22-30); Chloride 103 mmol/L (98-107); Estimated CRCL calculation 15 ml/min; Estimated Glomerular Filt Rate 16; Glucose 113 mg/dL (65-110); Potassium 3.7 mmol/L (3.4-5.0); Sodium 138 mmol/L (137-145)
[2023-12-14] MEDS: hydrALAZINE HCL 25 MG TABLET PO (08:32)
[2023-12-14] MEDS: carvediloL 12.5 MG TABLET PO (08:32)
[2023-12-14] MEDS: cycloSPORINE 0.4 ML OPHTH SOLUTION 1 DROP EACH EYE (08:32)
[2023-12-14] MEDS: CYANOCOBALAMIN 250 MCG TABLET PO (08:32)
[2023-12-14] MEDS: POTASSIUM CHLORIDE 20 MEQ ER TABLET PO (08:33)
[2023-12-14] MEDS: ASPIRIN 81 MG CHEWABLE TABLET PO (08:33)
[2023-12-14] MEDS: FUROSEMIDE 40 MG TABLET PO (08:33)
[2023-12-14] MEDS: EZETIMIBE 10 MG TABLET PO (08:33)
[2023-12-14] MEDS: dilTIAZem HCL CD 240 MG CAP.24HR PO (08:33)
[2023-12-14] MEDS: FERROUS SULFATE DRIED 142 MG TABCR PO (08:33)
[2023-12-14] MEDS: FLUTICASONE PROPIONATE 0.05% NA SPR 16 GM BTL (*BKC) 2 SPRAY NASAL (08:34)
--- NOTE | 2023-12-14 08:34 | PM.IMPN ---
Subjective Date/time seen: 12/14/23 08:34 Review of Systems Review of Systems: All systems reviewed & are unremarkable except as noted in HPI and below Exam Narrative: CONSTITUTIONAL: Pleasant, elderly female pt sitting up in bed at this time in no acute distress. On room air HEENT: Atraumatic and normocephalic, symmetric facies, posterior oropharynx is clear and patent. EYES: PERRLA, EOM's intact, conjunctiva are clear and sclera are non-icteric. NECK: FROM, Supple, no JVD RESPIRATORY: Remains decreased throughout. No adventitious breath sounds, and no crackles today. CARDIAC: Irregular rhythm of A-fib. This is a regularly irregular rhythm for this pt. Rate is currently controlled. GI: Soft, NT, Not distended, BS present in all four quads. SKIN: Pale, without lesion or rash. NEURO: Non-focal exam. Grossly intact. Alert and oriented x4 EXTREMITIES: No edema peripherally and all four extremities have FROM. PSYCH: Normal affect and cooperative. Objective Data Vital Signs Vital Signs: Vital Signs - 24 hr 12/13/23 12:04 12/13/23 13:56 12/13/23 16:00 Temperature Pulse Rate 75 59 L 82 Respiratory Rate 16 Blood Pressure 116/55 L Pulse Oximetry 93 Oxygen Delivery 12/13/23 22:00 12/13/23 20:00 12/13/23 20:00 Temperature 98.1 F Pulse Rate 87 79 Respiratory Rate 18 Blood Pressure 142/64 H Pulse Oximetry 94 Oxygen Delivery Room Air 12/14/23 00:00 12/14/23 04:00 12/14/23 05:52 Temperature 98.2 F Pulse Rate 71 85 83 Respiratory Rate 18 Blood Pressure 183/87 H Pulse Oximetry 94 Oxygen Delivery 12/14/23 08:32 Temperature Pulse Rate 86 Respiratory Rate Blood Pressure Pulse Oximetry Oxygen Delivery Intake/Output Intake/Output: Intake & Output 12/11/23 12/12/23 12/13/23 12/14/23 23:59 23:59 23:59 23:59 Intake Total 396 358 4996 Output Total 1200 Balance -574 802 4291 Meds/Results Medications: Active Medications Generic Name Dose Route Start Last Admin Trade Name Freq PRN Reason Stop Dose Admin Acetaminophen 325 mg 12/09/23 18:08 Acetaminophen 325 Mg Tablet PO Q6H PRN PAIN RATED 1-3 Acetaminophen 500 mg 12/09/23 18:21 Acetaminophen 500 Mg Tablet PO HS PRN Insomnia Albuterol/Ipratropium 3 ml 12/09/23 18:29 Ipratropium 0.5 Mg/Albuterol Sulfate 2.5 Mg Ampul.Neb 3 Ml INHALATION Q6HRT PRN Shortness Of Breath Or Wheezing Alprazolam 0.5 mg 12/09/23 18:08 Alprazolam (*Crx) 0.5 Mg Tablet PO HS PRN anxiety Aspirin 81 mg 12/10/23 09:00 12/14/23 08:33 Aspirin 81 Mg Chewable Tablet PO 81 mg DAILY SUKUMAR Administration Carvedilol 12.5 mg 12/10/23 09:00 12/14/23 08:32 Carvedilol 12.5 Mg Tablet PO 12.5 mg Q12HR SUKUMAR Administration Cyanocobalamin 250 mcg 12/10/23 09:00 12/14/23 08:32 Cyanocobalamin 250 Mcg Tablet PO 250 mcg QAM SUKUMAR Administration Cyclosporine 1 drop 12/10/23 09:00 12/14/23 08:32 Cyclosporine 0.4 Ml Ophth Solution EACH EYE 1 drop DAILY SUKUMAR Administration Dextrose 12.5 gm 12/09/23 15:16 Dextrose 50% 25 Gm/50 Ml Syringe IV PUSH PRN PRN Hypoglycemia Protocol Diltiazem HCl 240 mg 12/10/23 09:00 12/14/23 08:33 Diltiazem Hcl Cd 240 Mg Cap.24hr PO 240 mg DAILY SUKUMAR Administration Diphenhydramine HCl 25 mg 12/09/23 18:21 12/13/23 20:48 Diphenhydramine Hcl Cap 25 Mg Capsule PO 25 mg HS PRN Administration Insomnia Ezetimibe 10 mg 12/10/23 09:00 12/14/23 08:33 Ezetimibe 10 Mg Tablet PO 10 mg DAILY SUKUMAR Administration Enoxaparin Sodium 30 mg 12/12/23 09:00 12/14/23 08:33 Enoxaparin 30 Mg/0.3 Ml Syringe SUB-Q Not Given DAILY SUKUMAR Famotidine 10 mg 12/09/23 18:08 Famotidine 10 Mg Tablet PO DAILY PRN Heartburn Ferrous Sulfate 142 mg 12/10/23 09:00 12/14/23 08:33 Ferrous Sulfate Dried 142 Mg Tabcr PO 142 mg DAILY SUKUMAR Administration Fluticason
--- NOTE | 2023-12-14 12:09 | PM.DS ---
DS: Admitting Diagnosis Discharge Date 12/14/23 Admitting Diagnosis CHF exacerbation DS: Discharge Diagnosis Discharge Diagnosis (1) Hypoxia: Code(s): R09.02 - Hypoxemia Status: Resolved Assessment and Plan: - does not meet SIRS criteria - new supplemental O2 requirement: 2L NC - BNP 24737 - CXR: cardiomegaly - EKG, initial: AFib, rate 85, intraventricular conduction delay, compared to previous done in August of 2023, AFib now present. Awaiting formal read. - echo, 11/2021: Mild concentric increased LV wall thickness, estimated EF 60-65% LA dimension moderately enlarged, annuloplasty ring prostatic mitral valve leaflets are empty, trace regurgitation of the annuloplasty ring prosthetic MV, no previous difference compared to April of 2021. - DDx: Viral infection, CHF exacerbation, COPD exacerbation - start diuresis, given 60 mg IVP of Lasix. Continue has 40 mg PO daily until echo results. - nebs p.r.n. - add viral PCR 12/10: Currently on 1L supplemental oxygen with easy respirations and no s/s of distress. Awaiting ECHO results. Labs negative for Influenza, RSV and COVID. Attempted to wean to RA and pt desaturated to 86%. 12/11: Pt's oxygen was weaned and removed by this provider. Review of sats show that she was last at 95% on room air at noon without replacement. 12/12: Patient on room air at time of assessment. No distress noted. O2 Stats 93% 12/13: Remains on room air, no respiratory distress noted on exam. 12/14: Patient on room air at time of assessment, Denies any difficulty breathing, No acute distress noted at time of assessment. She expressed that she is ready to return to her assisted living facility. (2) Congestive heart failure (CHF): Qualifiers: Heart failure chronicity: chronic Heart failure type: unspecified Qualified Code(s): I50.9 - Heart failure, unspecified Code(s): I50.9 - Heart failure, unspecified Status: Acute Assessment and Plan: - echo, 11/2021: Mild concentric increased LV wall thickness, estimated EF 60-65% LA dimension moderately enlarged, annuloplasty ring prostatic mitral valve leaflets are empty, trace regurgitation of the annuloplasty ring prosthetic MV, no previous difference compared to Jeanette of 2021. - Lasix 60 mg IVP, continue has 40 mg PO daily until echo results. - daily weights - I&Os 12/10: Awaiting echo results, Continue Lasix, daily weights and accurate I&O. Elevated BNP present on arrival, however, no s/s of pleural fluid or PNA. Previous EF noted to be 60-65%. Continue Potassium supplementation. 12/11: Pt without any acute signs of exacerbation. She has tolerated her current doses of Lasix with 40 mg on Wednesday and Wednesday and 20 mg on Wednesday, Wednesday, Wednesday, and Wednesday. She appears euvolemic, and she does not appear to be decompensated. As pt has had interval improvement, cardiology not consulted and she remains on her home dose of Lasix. She had ECHO yesterday that showed severe biatrial enlargement, atrial fibrillation, normal LV size and contractility and moderately elevated PA Pressure. Her LVSF is normal with EF of 55-60%. 12/12: Patient is without any acute signs of exacerbations. She presents on room air, no acute distress noted at time of assessment. Tolerating todays PO Lasix 20mg medications well. 12/13: She remain without signs of exacerbation today. She remains on room air, no acute distress noted and she denies any pain or shortness of breath. Tolerating medications well. 12/13: Patient expressed she is doing well, and notes that she is not experiencing any of the exacerbation symptoms that initated her hospitalization. On assessment she is without any acute signs of exacerbation. She continues to tolerate her medications well. She remains on room air, she denies any pain, chest pain or shortness of breath. She will discharge to her assisted living facility today (3) A-fib: Qualifiers: Atrial fibrilla
== END 2023-12-14 15:45 ==
LOC: ANHED 11:11 → ANHIMU 14:05 → ANH2MED 12-12 07:16 → ANHIMU 12-15 09:02
PROVIDERS: Nurse Practitioner Family; Student in an Organized Health Care Education/Training Program; Admitting Provider General Practice; Emergency Provider Physician Assistant; PCP Family Medicine; Visit Provider Nurse Practitioner Adult Health
DX: R09.02 Hypoxemia (principal); I13.0 Hypertensive heart and chronic kidney disease with heart failure and stage 1 through stage 4 chronic kidney disease, or unspecified chronic kidney disease; E11.22 Type 2 diabetes mellitus with diabetic chronic kidney disease; I50.30 Unspecified diastolic (congestive) heart failure; N18.4 Chronic kidney disease, stage 4 (severe); D63.1 Anemia in chronic kidney disease; R33.9 Retention of urine, unspecified; I25.10 Atherosclerotic heart disease of native coronary artery without angina pectoris; I48.19 Other persistent atrial fibrillation; K59.09 Other constipation; I45.4 Nonspecific intraventricular block; E78.5 Hyperlipidemia, unspecified; I25.2 Old myocardial infarction; E11.40 Type 2 diabetes mellitus with diabetic neuropathy, unspecified; N25.0 Renal osteodystrophy; E11.21 Type 2 diabetes mellitus with diabetic nephropathy; J44.9 Chronic obstructive pulmonary disease, unspecified; Z98.890 Other specified postprocedural states; Z20.822 Contact with and (suspected) exposure to COVID-19; Z79.1 Long term (current) use of non-steroidal anti-inflammatories (NSAID); Z79.82 Long term (current) use of aspirin; Z79.899 Other long term (current) drug therapy; Z79.4 Long term (current) use of insulin; Z83.3 Family history of diabetes mellitus; Z82.49 Family history of ischemic heart disease and other diseases of the circulatory system; Z87.891 Personal history of nicotine dependence
CPT/HCPCS: 36415; 51701; 71045; 80053; 81001; 82948; 83036; 83735; 83880; 84484; 85025; 85027; 85610; 85730; 87637; 93005; 93306; 96374; 97110; 97161; 97165; 97530; 97535; 99285; A9270; G0378; J1940

== ENCOUNTER 2024-03-03 12:50 | Observation (INO) | payer MEDICARE, SELFPAY ==
[2024-03-03] VITALS (15 sets, daily range): BP systolic 115–157; BP diastolic 53–77; PULSE 54–92; RESP 12–20; TEMP 36–36.7; O2SAT 93–99; BMI 23.8
--- NOTE | ~2024-03-03 | XR_ITS ---
EXAMINATION: XR chest 1V DATE: 03/06/2024 11:55 INDICATION: Hypoxia. TECHNIQUE: A single frontal view of the chest was obtained. COMPARISON: Chest single view 03/03/2024 FINDINGS: There is a diffuse interstitial pattern in the lungs, consistent with mild pulmonary edema. No pleural effusion or pneumothorax. Cardiomegaly is noted. There are changes of heart valve replace ment. IMPRESSION: 1. Mild pulmonary edema. 2. Cardiomegaly. Reviewed, dictated and finalized at location A.
--- NOTE | ~2024-03-03 | XR_ITS ---
Portable chest x-ray Comparison: 12/09/2023 Clinical History: Chest tightness Findings: Lungs are clear, without focal consolidation or pleural effusion. Cardiomediastinal silho uette is stable, status post valve replacement. Bones and soft tissues are unremarkable. Impression: Clear lungs. Reviewed, dictated and finalized at location . Impression: Clear lungs.
--- NOTE | ~2024-03-03 | NM_ITS ---
EXAMINATION: NM lung vent and perfusion DATE: 03/06/2024 11:53 INDICATION: Hypoxia. TECHNIQUE: 10.4 mCi Xenon-133 was given for ventilation images. 5.2 mCi Tc-99m MAA was administered i ntravenously for perfusion images. Scintigraphic images of the chest were obtained. COMPARISON: Chest single view 03/06/2024 FINDINGS: Ventilation images demonstrate a moderate-sized defect in right upper lobe on the single breath image s. There is diffuse retention of radiotracer bilaterally on washout images. Perfusion images show mat ched small defects in the upper lobes and lower lobes. Cardiomegaly is noted. IMPRESSION: 1. Low probability for pulmonary embolus. Reviewed, dictated and finalized at location A.
--- NOTE | 2024-03-03 12:59 | ECG_ITS ---
SEE SCANNED COPY FOR CONFIRMED REPORT MTDD
--- NOTE | 2024-03-03 13:25 | ED.GENADULT ---
HPI - General Adult General Chief complaint: Unspecified Stated complaint: lightheaded - nausea Time Seen by Provider: 03/03/24 12:58 History of Present Illness HPI narrative: Patient is presenting with an episode of nausea vomiting with lightheadedness that started this morning, when she felt she may pass out with shortness of breath, cold sweats, her just a few weeks ago and she thinks it is due to stress Related Data Home Medications Medication Instructions Recorded Confirmed cyclosporine 0.05 % eye drops 1 drop ophthalmic (eye) DAILY 10/24/19 03/03/24 (Restasis MultiDose) carvedilol 12.5 mg tablet 25 mg PO Q12H 03/09/21 03/03/24 potassium chloride 20 mEq 20 meq PO DAILY 03/09/21 03/03/24 tablet,extended release(part/cryst) (Klor-Con M) ezetimibe 10 mg tablet 10 mg PO DAILY 09/11/23 03/03/24 aspirin 81 mg tablet 81 mg PO DAILY 12/09/23 03/03/24 cyanocobalamin (vitamin B-12) 50 50 mcg PO DAILY 12/09/23 03/03/24 mcg tablet (Vitamin B-12) famotidine 10 mg tablet 10 mg PO DAILY PRN Heartburn 12/09/23 03/03/24 ferrous sulfate 27 mg iron tablet 27 mg PO USEASDIRECTD 12/09/23 03/03/24 psyllium 1 packet PO DAILY PRN Constipation 03/03/24 03/03/24 Allergies Allergy/AdvReac Type Severity Reaction Status Date / Time amiodarone Allergy Severe Unresponsiv Verified 03/03/24 18:33 e Review of Systems Review of Systems: All systems reviewed & are unremarkable except as noted in HPI and below [facility] Past Medical History Medical History (Updated 03/03/24 @ 18:36 by Hannah Joshi MD) A-fib Paroxysmal Acute exacerbation of CHF (congestive heart failure) Acute kidney injury superimposed on chronic kidney disease Acute on chronic diastolic heart failure Acute on chronic renal failure Anemia Anxiety Anxiety Arthritis Bronchitis CAD (coronary artery disease) 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, with long-term current use of insulin Type 2 diabetes mellitus without complications UTI (urinary tract infection) Surgical History Surgical History H/O cardiac catheterization H/O maze procedure H/O mitral valve repair With a ring H/O: hysterectomy Intertrochanteric fracture of right hip ORIF with trochanteric nail September 13, 2023 Family History Family History Mother Family history of diabetes mellitus in first degree relative Family history of lung cancer Father Family history of coronary artery disease Hypertension Sibling Family history of diabetes mellitus in first degree relative Social History Social History (Updated 11/09/23 @ 13:35 by aTmmi Cheney CMA) Social History: She has with her for over 50 years. She desires to be full code. She smoked half a pack a cigarettes per day for 40 years quit March 14, 2014. No illicit drug use but does occasionally drink alcohol. 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 She has 2 children and 2 grandchildren. Her has dementia and she nominated her daughter Debbie to be the one to make medical decisions for her if she
[2024-03-03] MEDS: ONDANSETRON INJ 4 MG/2 ML VIAL IV PUSH (13:32)
[2024-03-03] MEDS: FAMOTIDINE 20 MG/2 ML VIAL IV PUSH (13:32)
--- NOTE | 2024-03-03 13:33 | PC.NURSE ---
1 L of LR held, 1L of NS from EMS currently infusing.
[2024-03-03 13:35] LABS: Basophils Absolute Auto 0.1 K/mm3 (0.0-0.1); Basophils Percent Auto 0.8 % (0.2-1.2); Eosinophils Absolute Auto 0.3 K/mm3 (0-0.3); Eosinophils Percent Auto 3.2 % (0-4.4); Hematocrit 32.4 % (37.0-47.0); Hemoglobin 10.1 g/dL (12.0-15.0); Immature Granulocyte Absolute 0.05 K/mm3 (0.00-0.031); Immature Granulocyte Percent A 0.6 % (0-0.5); Lymphocytes Absolute Auto 0.91 K/mm3 (0.9-3.2); Lymphocytes Percent Auto 11.8 % (18.3-44.2); Mean Corpuscular HGB Conc 31.2 g/dl (32-36); Mean Corpuscular Hemoglobin 28.2 pg (26-34); Mean Corpuscular Volume 90.5 fl (80-100); Mean Platelet Volume 10.2 fl (7.4-10.4); Monocytes Absolute Auto 0.4 K/mm3 (0.1-0.6); Monocytes Percent Auto 5.4 % (2.6-8.5); Neutrophils Percent Auto 78.2 % (45.5-73.1); Platelet Count Result 224 k/mm3 (150-375); Red Blood Count 3.58 M/mm3 (4.2-5.4); Red Cell Distribution Width 15.7 % (11.5-14.5); White Blood Count 7.7 K/mm3 (4.5-10.0)
[2024-03-03 13:51] LABS: Alanine Aminotransferase 9 U/L (6-35); Albumin Level 3.7 g/dL (3.5-5.1); Alkaline Phosphatase 75 U/L (38-126); Anion Gap 8 mmol/L (4-12); Aspartate Amino Transferase 16 U/L (14-36); Bilirubin,Total 0.7 mg/dL (0.2-1.3); Blood Urea Nitrogen 38 mg/dL (7-17); Calcium 8.4 mg/dL (8.4-10.2); Carbon Dioxide 25 mmol/L (22-30); Chloride 106 mmol/L (98-107); Estimated CRCL calculation 16 ml/min; Estimated Glomerular Filt Rate 18; Glucose 242 mg/dL (65-110); Potassium 3.4 mmol/L (3.4-5.0); Sodium 139 mmol/L (137-145)
[2024-03-03 14:02] LABS: Troponin I 0.013 ng/mL (0.000-0.034)
[2024-03-03 16:30] LABS: Appearance Urine Clear (Clear); Bacteria Urine None Seen /hpf; Bilirubin Urine Negative (Negative); Blood Urine Negative (Negative); Color Urine Yellow (Yellow); Glucose Urine UA Trace mg/dL (Negative); Ketones Urine Negative (Negative); Leukocyte Esterase Ur Trace LEU/UL (Negative); Nitrate Urine Negative (Negative); Protein Urine 2+ mg/dL (Negative); RBC Urine 0-2 /hpf (0-2); Specific Grav Ur 1.014 (1.001-1.035); Squamous Epithelial Cell Urine None Seen /hpf (Few); Urobilinogen Urine 0.2 mg/dL (<2.0)
[2024-03-03 16:34] LABS: Add Urine Microscopic? YES
[2024-03-03 16:36] LABS: NT Pro B Type Natriuretic Pept 7150 pg/mL (19.9-100)
[2024-03-03 16:41] LABS: Influenza A QL RT-PCR Negative (Negative); Influenza B QL RT-PCR Negative (Negative); RSV RNA, RT-PCR Negative (Negative); SARS-CoV-2 RNA PCR Negative (Negative)
[2024-03-03 16:48] LABS: Troponin I < 0.012 ng/mL (0.000-0.034)
--- NOTE | 2024-03-03 18:21 | ADMGEN ---
This patient, Vicente Schofield, was admitted to [facility] Room 311-01. Patient/family oriented to hospital policies and general routines including ID bracelet, bed and alarms, visiting hours, pain management, procedures, bathroom and other care routines, personal items, smoking policy, room service/diet, and visiting hours. Information on how to activate the Rapid Response Team has been discussed. Patient/Family are encouraged to report perceived risks to care and to ask questions if they do not understand what they are told or what they should do.
[2024-03-04] VITALS (12 sets, daily range): BP systolic 101–140; BP diastolic 56–64; PULSE 61–84; RESP 12–18; TEMP 36.1–37.4; O2SAT 91–98
--- NOTE | 2024-03-04 | ECHO_ITS ---
Patient Info Name: Vicente Schofield Age: 78 years : 1945 Gender: Female Ht: 67 in Wt: 152 lbs BSA: 1.81 m2 HR: 77 bpm BP: 138 / 56 mmHg Technical Quality: Good Exam Date: 03/04/2024 10:17 AM Exam Location: Echo Lab Patient Status: Inpatient Admit Date: 03/03/2024 Staff Ordering Physician: Debbie Joy APRN Filling Station Attendant: Kelvin Zimmerman RDCS Attending Provider: Lovely Allison MD Referring Physician: Rufino PERES; Exam Type: CA echo doppler color flow Study Info Indications - chf Complete two-dimensional, color flow and Doppler transthoracic echocardiogram is performed. Summary 1. Complete two-dimensional, color flow and Doppler transthoracic echocardiogram is performed. 2. Left ventricular chamber dimension is normal. 3. Left ventricular systolic function is normal, estimated at 55-60%. 4. Right ventricular chamber dimension is normal. 5. Right ventricular systolic function is normal. 6. Left atrial chamber dimension is moderately enlarged. 7. Moderate pulmonary hypertension, estimated pulmonary arterial systolic pressure is 62 mmHg. 8. There is mild to moderate tricuspid valve regurgitation. 9. Mitral annuloplasty ring is well visualized. 10. There is mild to moderate mitral valve regurgitation. 11. Dilated inferior vena cava with <50% collapse upon inspiration consistent with elevated right atrial pressure, 15 mmHg. Left Ventricle Left ventricular chamber dimension is normal. Left ventricular systolic function is normal, estimated at 55-60%. There is mildly increased left ventricular wall thickness. Left ventricular septal wall motion is normal. The left ventricular diastolic function is normal. Right Ventricle Right ventricular chamber dimension is normal. Right ventricular systolic function is normal. Left Atria Left atrial chamber dimension is moderately enlarged. Right Atria Right atrial chamber dimension is mildly enlarged. Aortic Valve The aortic valve is trileaflet. There is no aortic valve sclerosis. There is no aortic valve stenosis. There is no aortic valve regurgitation. Pulmonic Valve There is no pulmonic valve stenosis. There is trace pulmonic regurgitation. Mitral Valve There is no mitral valve stenosis. There is mild to moderate mitral valve regurgitation. Mitral annuloplasty ring is well visualized. Tricuspid Valve The tricuspid valve leaflets are normal. There is no significant tricuspid valve stenosis. There is mild to moderate tricuspid valve regurgitation. Moderate pulmonary hypertension, estimated pulmonary arterial systolic pressure is 62 mmHg. Pericardium/Pleural The pericardium appears normal. There is no pericardial effusion. Inferior Vena Cava Dilated inferior vena cava with <50% collapse upon inspiration consistent with elevated right atrial pressure, 15 mmHg. Aorta The aortic root size at the sinus of Valsalva is normal. The prox ascending aorta size is normal. Left Ventricular Outflow Tract Name Value Normal LVOT 2D LVOT Diameter 2.0 cm LVOT Doppler LVOT Peak Gradient 2 mmHg LVOT Mean Gradient 1 mmHg LVOT VTI 18 cm LVO
[2024-03-04 07:01] LABS: Hematocrit 30.9 % (37.0-47.0); Hemoglobin 9.4 g/dL (12.0-15.0); Mean Corpuscular HGB Conc 30.4 g/dl (32-36); Mean Corpuscular Hemoglobin 28.4 pg (26-34); Mean Corpuscular Volume 93.4 fl (80-100); Mean Platelet Volume 10.2 fl (7.4-10.4); Platelet Count Result 229 k/mm3 (150-375); Red Blood Count 3.31 M/mm3 (4.2-5.4); Red Cell Distribution Width 15.8 % (11.5-14.5); White Blood Count 7.4 K/mm3 (4.5-10.0)
[2024-03-04 07:20] LABS: Anion Gap 6 mmol/L (4-12); Blood Urea Nitrogen 35 mg/dL (7-17); Calcium 8.4 mg/dL (8.4-10.2); Carbon Dioxide 26 mmol/L (22-30); Chloride 107 mmol/L (98-107); Estimated CRCL calculation 16 ml/min; Estimated Glomerular Filt Rate 19; Glucose 95 mg/dL (65-110); Potassium 3.6 mmol/L (3.4-5.0); Sodium 139 mmol/L (137-145)
[2024-03-04 08:56] LABS: Alanine Aminotransferase 7 U/L (6-35); Albumin Level 3.6 g/dL (3.5-5.1); Alkaline Phosphatase 65 U/L (38-126); Anion Gap 7 mmol/L (4-12); Aspartate Amino Transferase 15 U/L (14-36); Bilirubin,Total 0.5 mg/dL (0.2-1.3); Blood Urea Nitrogen 35 mg/dL (7-17); Calcium 8.6 mg/dL (8.4-10.2); Carbon Dioxide 26 mmol/L (22-30); Chloride 109 mmol/L (98-107); Estimated CRCL calculation 16 ml/min; Estimated Glomerular Filt Rate 18; Glucose 98 mg/dL (65-110); Potassium 3.8 mmol/L (3.4-5.0); Sodium 142 mmol/L (137-145)
[2024-03-04] MEDS: EZETIMIBE 10 MG TABLET PO (09:03)
[2024-03-04] MEDS: dilTIAZem HCL CD 240 MG CAP.24HR PO (09:03)
[2024-03-04] MEDS: hydrALAZINE HCL 25 MG TABLET PO ×2 (09:04→16:42)
[2024-03-04] MEDS: POTASSIUM CHLORIDE 20 MEQ ER TABLET PO (09:04)
[2024-03-04] MEDS: carvediloL 12.5 MG TABLET 25 MG PO ×2 (09:04→20:58)
[2024-03-04] MEDS: cycloSPORINE 0.4 ML OPHTH SOLUTION 1 DROP EACH EYE (09:04)
[2024-03-04] MEDS: ASPIRIN 81 MG ENTERIC TABLET PO (09:04)
[2024-03-04] MEDS: FUROSEMIDE 20 MG TABLET PO (09:04)
[2024-03-04 09:08] LABS: Troponin I < 0.012 ng/mL (0.000-0.034)
[2024-03-04 09:30] LABS: D Dimer 0.84 ug/mL (<0.48)
--- NOTE | 2024-03-04 15:43 | PM.IMHP ---
H&P: HPI History of Present Illness Date/Time: 03/04/24 15:43 Chief Complaint: Lightheadedness nausea vomiting presyncopal symptoms shortness of breath cold sweats Narrative: 78-year-old female complaining of multitude of symptoms. She reports her just few weeks ago thinks it is due to stress Review of Systems Review of Systems: All systems reviewed & are unremarkable except as noted in HPI and below (Subjective) [facility] Past Medical History Medical History (Updated 03/03/24 @ 18:36 by Hannah Joshi MD) A-fib Paroxysmal Acute exacerbation of CHF (congestive heart failure) Acute kidney injury superimposed on chronic kidney disease Acute on chronic diastolic heart failure Acute on chronic renal failure Anemia Anxiety Anxiety Arthritis Bronchitis CAD (coronary artery disease) 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, with long-term current use of insulin Type 2 diabetes mellitus without complications UTI (urinary tract infection) Surgical History Surgical History H/O cardiac catheterization H/O maze procedure H/O mitral valve repair With a ring H/O: hysterectomy Intertrochanteric fracture of right hip ORIF with trochanteric nail September 13, 2023 Family History Family History Mother Family history of diabetes mellitus in first degree relative Family history of lung cancer Father Family history of coronary artery disease Hypertension Sibling Family history of diabetes mellitus in first degree relative Social History Social History (Updated 11/09/23 @ 13:35 by Tammi Cheney CMA) Social History: She has with her for over 50 years. She desires to be full code. She smoked half a pack a cigarettes per day for 40 years quit March 14, 2014. No illicit drug use but does occasionally drink alcohol. 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 She has 2 children and 2 grandchildren. Her has dementia and she nominated her daughter Debbie to be the one to make medical decisions for her if she is unable. Smoking packs per day: 0.5 Smoking cigarettes per day: 10.0 Years smoked: 40 Smoking pack-years: 20.00 Smoking status: Former smoker Second hand tobacco smoke exposure: Yes Additional smoking assessment comments: Occasional smoker for 40 years Alcohol intake: never Drinks per week: 0 Alcohol use details: once a year Substance use: never Substance use type: does not use Do You Feel Safe in your Home?: Yes Lack of Transportation: No Lack of Food: Never True Current Housing: I Have Housing Concerned About Future Housing: No Difficulty Paying Gas/Electric Bills: No Difficulty Paying for Meds: No Currently Unemployed: No Education: Bachelor's Degree Difficulty w/ Childcare or Family Care: No Living arrangements: assisted living Additional living arrangements comments: [facility] Occupation/Education: retired Gender identity (if verbalized by the patient): Female Sexual Orientation (if Verbalized by the Patient): Straight or Het
[2024-03-05] VITALS (10 sets, daily range): BP systolic 104–143; BP diastolic 48–66; PULSE 54–81; RESP 12–18; TEMP 36.3–36.4; O2SAT 88–95
[2024-03-05 06:27] LABS: Hematocrit 32.3 % (37.0-47.0); Hemoglobin 9.5 g/dL (12.0-15.0); Mean Corpuscular HGB Conc 29.4 g/dl (32-36); Mean Corpuscular Hemoglobin 27.9 pg (26-34); Mean Corpuscular Volume 94.7 fl (80-100); Mean Platelet Volume 10.2 fl (7.4-10.4); Platelet Count Result 222 k/mm3 (150-375); Red Blood Count 3.41 M/mm3 (4.2-5.4); Red Cell Distribution Width 15.6 % (11.5-14.5); White Blood Count 8.3 K/mm3 (4.5-10.0)
[2024-03-05 06:41] LABS: Alanine Aminotransferase 8 U/L (6-35); Albumin Level 3.4 g/dL (3.5-5.1); Alkaline Phosphatase 68 U/L (38-126); Anion Gap 6 mmol/L (4-12); Aspartate Amino Transferase 16 U/L (14-36); Bilirubin,Total 0.5 mg/dL (0.2-1.3); Blood Urea Nitrogen 39 mg/dL (7-17); Calcium 8.2 mg/dL (8.4-10.2); Carbon Dioxide 25 mmol/L (22-30); Chloride 107 mmol/L (98-107); Estimated CRCL calculation 15 ml/min; Estimated Glomerular Filt Rate 16; Glucose 115 mg/dL (65-110); Potassium 4.2 mmol/L (3.4-5.0); Sodium 138 mmol/L (137-145)
[2024-03-05] MEDS: cycloSPORINE 0.4 ML OPHTH SOLUTION 1 DROP EACH EYE (09:05)
[2024-03-05] MEDS: POTASSIUM CHLORIDE 20 MEQ ER TABLET PO (09:06)
[2024-03-05] MEDS: ASPIRIN 81 MG ENTERIC TABLET PO (09:06)
[2024-03-05] MEDS: EZETIMIBE 10 MG TABLET PO (09:06)
[2024-03-05] MEDS: hydrALAZINE HCL 25 MG TABLET PO ×2 (09:06→17:12)
[2024-03-05] MEDS: carvediloL 12.5 MG TABLET 25 MG PO ×2 (09:07→20:38)
[2024-03-05] MEDS: dilTIAZem HCL CD 240 MG CAP.24HR PO (09:07)
[2024-03-05] MEDS: FUROSEMIDE 20 MG TABLET PO (09:16)
[2024-03-05] MEDS: PSYLLIUM POWDER PACKET 1 PACKET PO (11:40)
--- NOTE | 2024-03-05 12:51 | PM.IMPN ---
Progress Note: A&P Assessment and Plan (1) Pre-syncope: Code(s): R55 - Syncope and collapse Status: Acute (2) Hypoxia: Code(s): R09.02 - Hypoxemia Status: Acute (3) Anxiety: Code(s): F41.9 - Anxiety disorder, unspecified Status: Acute Plan 78-year-old female with past medical history heart failure preserved ejection fraction, CKD, CAD, AFib on aspirin, hypertension, [id number] diabetes mellitus presents with nausea vomiting shortness of breath anxiety.? She reports her recently and thinks he may be due to stress. Mild hypoxia.? Troponins negative.? Symptoms have improved Not appear to be in overt overload.? V/Q scan on Wednesday.? Patient elects not to use anticoagulation the meantime but is amenable to this test and read discussing the issue.? Only takes aspirin for atrial fibrillation because she had severe nosebleeds previously. March 05: Intermittently requires oxygen. Continue to monitor. V/Q scan tomorrow. DNR.? SCDs.? Saline lock IV. Subjective Date/time seen: 03/05/24 12:51 Interval history: No acute overnight events. She reported a talking feeling in her pelvis this morning but at the moment denies the pain. Review of Systems Review of Systems: All systems reviewed & are unremarkable except as noted in HPI and below (Subjective) Exam Const: General: comfortable and no acute distress Eyes: Pupils: Equal, round and reactive pupils present Neck: Neck: supple Resp: Effort & Inspection: normal respiratory effort Auscultation: clear to auscultation bilaterally Cardio: Rate: regular rate Rhythm: abnormal rhythm GI: GI Palp: Yes Soft to palpation and No Tenderness to palpation present (GI) Extrem: General: no edema Objective Data Vital Signs Vital Signs: Vital Signs - 24 hr 03/04/24 14:00 03/04/24 16:00 03/04/24 20:53 Temperature 97.2 F L 99.4 F Pulse Rate 61 70 84 Respiratory Rate 18 12 Blood Pressure 101/57 L 140/64 Pulse Oximetry 92 91 Oxygen Delivery 03/04/24 20:58 03/05/24 05:19 03/05/24 09:07 Temperature 97.6 F Pulse Rate 75 67 68 Respiratory Rate 12 Blood Pressure 143/66 H Pulse Oximetry 94 Oxygen Delivery 03/05/24 08:00 03/05/24 08:00 03/05/24 12:00 Temperature Pulse Rate 72 68 66 Respiratory Rate Blood Pressure Pulse Oximetry 95 Oxygen Delivery Room Air Intake/Output Intake/Output: Intake & Output 03/02/24 03/03/24 03/04/24 03/05/24 23:59 23:59 23:59 23:59 Intake Total 1180 750 Balance 1180 750 Meds/Results Medications: Active Medications Generic Name Dose Route Start Last Admin Trade Name Freq PRN Reason Stop Dose Admin Aspirin 81 mg 03/04/24 09:00 03/05/24 09:06 Aspirin 81 Mg Enteric Tablet PO 81 mg QAM SUKUMAR Administration Carvedilol 25 mg 03/04/24 09:00 03/05/24 09:07 Carvedilol 12.5 Mg Tablet PO 25 mg Q12HR SUKUMAR Administration Cyclosporine 1 drop 03/04/24 09:00 03/05/24 09:05 Cyclosporine 0.4 Ml Ophth Solution EACH EYE 1 drop DAILY SUKUMAR Administration Diltiazem HCl 240 mg 03/04/24 09:00 03/05/24 09:07 Diltiazem Hcl Cd 240 Mg Cap.24hr PO 240 mg DAILY SUKUMAR Administration Ezetimibe 10 mg 03/04/24 09:00 03/05/24 09:06 Ezetimibe 10 Mg Tablet PO 10 mg DAILY SKUUMAR Administration Famotidine 10 mg 03/04/24 15:50 Famotidine 10 Mg Tablet PO DAILY PRN Heartburn Furosemide 40 mg 03/07/24 09:00 Furosemide 40 Mg Tablet PO TuFr@0900 SUKUMAR Furosemide 20 mg 03/04/24 09:00 03/05/24 09:16 Furosemide 20 Mg Tablet PO 20 mg SuMoWeThSa@0900 SUKUMAR Administration Hydralazine HCl 25 mg 03/04/24 09:00 03/05/24 09:06 Hydralazine Hcl 25 Mg Tablet PO 25 mg BID SUKUMAR Administration Perflutren Lipid Microsphere 0 ml 03/04/24 07:55 Perflutren Lipid Microspheres 1.5 Ml Vial Diluted To 10 Ml Total Volume IV PUSH 03/07/24 07:55 ONCE PRN adequate visuali
[2024-03-06] VITALS (12 sets, daily range): BP systolic 109–146; BP diastolic 40–64; PULSE 53–90; RESP 16–20; TEMP 36.4–36.7; O2SAT 87–100
[2024-03-06 06:51] LABS: Anion Gap 7 mmol/L (4-12); Blood Urea Nitrogen 39 mg/dL (7-17); Calcium 8.4 mg/dL (8.4-10.2); Carbon Dioxide 23 mmol/L (22-30); Chloride 108 mmol/L (98-107); Estimated CRCL calculation 16 ml/min; Estimated Glomerular Filt Rate 18; Glucose 112 mg/dL (65-110); Magnesium 2.5 mg/dL (1.6-2.3); Sodium 138 mmol/L (137-145)
[2024-03-06] MEDS: cycloSPORINE 0.4 ML OPHTH SOLUTION 1 DROP EACH EYE (08:08)
[2024-03-06] MEDS: POTASSIUM CHLORIDE 20 MEQ ER TABLET PO (08:09)
[2024-03-06] MEDS: carvediloL 12.5 MG TABLET 25 MG PO (08:10)
[2024-03-06] MEDS: dilTIAZem HCL CD 240 MG CAP.24HR PO (08:10)
[2024-03-06] MEDS: ASPIRIN 81 MG ENTERIC TABLET PO (08:10)
[2024-03-06] MEDS: EZETIMIBE 10 MG TABLET PO (08:10)
[2024-03-06] MEDS: hydrALAZINE HCL 25 MG TABLET PO (08:10)
[2024-03-06] MEDS: FUROSEMIDE 20 MG TABLET PO (08:13)
[2024-03-06] MEDS: PSYLLIUM POWDER PACKET 1 PACKET PO (10:01)
--- NOTE | 2024-03-06 14:52 | HOMEO2EVAL ---
Evaluation was performed at [facility] Home Oxygen Evaluation RC: Home Oxygen (O2) Evaluation Start: 03/06/24 13:02 Freq: ONCE Status: Active Protocol: RPE Activity Type Activity Date Activity User E-sign Co-sign Detail Recorded Client Recorded Date Recorded By Document 03/06/24 14:30 LOGAN [email or web address] 03/06/24 14:52 LOGAN Document 03/06/24 14:32 LOGAN [email or web address] 03/06/24 14:52 LOGAN Document 03/06/24 14:33 LOGAN [email or web address] 03/06/24 14:52 LOGAN Document 03/06/24 14:34 LOGAN [email or web address] 03/06/24 14:52 LOGAN Document 03/06/24 14:45 LOGAN [email or web address] 03/06/24 14:52 LOAGN 03/06/24 03/06/24 03/06/24 14:30 14:32 14:33 Home O2 Evaluation [Oxygen] -Test Phase Resting Exercise Exercise -Oxygen Delivery Room Air Room Air Nasal Cannula -Oxygen Flow Rate (L/min) 1 [Pulse Oximetry] -Pulse Oximetry (90-100 %) 94 87 L 88 L [Pulse Rate] -Pulse Rate (60-100 beats/min) 53 L 87 [Comments] -Home Oxygen Evaluation Comments [Charges] -Evaluation Charges O2 Evaluation by Pulmonary 03/06/24 03/06/24 14:34 14:45 Home O2 Evaluation [Oxygen] -Test Phase Exercise Resting -Oxygen Delivery Nasal Cannula Room Air -Oxygen Flow Rate (L/min) 2 [Pulse Oximetry] -Pulse Oximetry (90-100 %) 92 94 [Pulse Rate] -Pulse Rate (60-100 beats/min) 82 59 L [Comments] -Home Oxygen Evaluation Comments Pt requires 2 L home O2 with activity/ exertion [Charges] -Evaluation Charges
--- NOTE | 2024-03-06 15:01 | PCRCNOTE ---
Addendum entered by Alicia Zuluaga, STATISTICAL TYPIST 03/06/24 15:18: Will arrange home O2 with [facility], [place] unable to obtain at this time. Original Note: Home O2 eval done, pt requires 2 L with activity, room air at rest. Will arrange with [facility]. Pt requested to be set up with portable O2 concentrator for easier mobility.
--- NOTE | 2024-03-06 15:22 | PM.DS ---
DS: Admitting Diagnosis Discharge Date March 06, 2024 Admitting Diagnosis Shortness of breath DS: Discharge Diagnosis Discharge Diagnosis (1) Pre-syncope: Code(s): R55 - Syncope and collapse Status: Acute (2) Hypoxia: Code(s): R09.02 - Hypoxemia Status: Acute (3) Acute exacerbation of CHF (congestive heart failure): Code(s): I50.9 - Heart failure, unspecified Status: Acute (4) Anxiety: Code(s): F41.9 - Anxiety disorder, unspecified Status: Acute DS: Summary Hospital Course Hospital Course: 78-year-old female with a past medical history heart failure preserved ejection fraction, CKD, CAD, AFib on aspirin, hypertension, [id number] diabetes mellitus, presents with nausea vomiting shortness of breath and anxiety. She reports her recently and thinks it may be due to stress. The patient was admitted on 03/03 with acute hypoxic respiratory failure requiring only 1-2 L of nasal cannula. This was taken off and placed back on multiple times. A V/Q scan was performed which demonstrated low probability of pulmonary embolus. Her symptoms also resolved. Due to this the patient felt well enough to go home and she was stable for discharge to home on 03/06/2024. She was provided an additional dose of Lasix. She has previously had multiple walk test over the years. We did 1 again and she qualified for home O2 with 2 L on activity. Again she was asymptomatic but was amenable to this. She he did not want to go through with any further investigations. She thinks her symptoms may have been more related to stress due to her recently dying. Empathy and support was provided. She denied suicidal ideation. She preferred to follow-up with her primary care on any antidepressants further management of grief disorder. She was also advised to follow with her primary care physician on her heart failure and other comorbidities. Was in understanding and agreement with this plan. Patient was DNR during her admission. Time Spent with Patient Time attestation: Total time spent providing and/or coordinating discharge services: Exam Const: General: comfortable and no acute distress Eyes: Pupils: Equal, round and reactive pupils present Neck: Neck: supple Resp: Effort & Inspection: normal respiratory effort Auscultation: crackles (Bibasilar) Cardio: Rate: regular rate Rhythm: abnormal rhythm GI: GI Palp: Yes Soft to palpation and No Tenderness to palpation present (GI) Extrem: General: no edema DS: Data Data Completed and Pending Labs on day of discharge: Labs from last 24 hours 03/06/24 06:18 Sodium 138 Potassium 4.0 Chloride 108 H Carbon Dioxide 23 Anion Gap 7 BUN 39 H Creatinine 2.60 H Estim Creat Clear Calc 16 Estimated GFR 18 L Glucose 112 H Calcium 8.4 Magnesium 2.5 H Discharge Plan Discharge Attending physician on discharge: Lovely Allison Discharging Clinician: Lovely Allison Patient Disposition: Home, Self-Care Activity: may shower Diet: as tolerated Discharge Instructions: As discussed, follow-up with your primary care provider within 2 weeks. If you experience severe shortness of breath return to the ER. You have been prescribed oxygen to use on activity. Patient Instructions: Antibiotic Form Stand Alone Forms: General Discharge Information Follow-up/Referrals: Quinten Whitlock MD [Primary Care Provider] - 2 Weeks Discharge Medications: Continued carvedilol 12.5 mg tablet 25 mg PO Q12H potassium chloride [Klor-Con M20] 20 mEq tablet,ER particles/crystals 20 meq PO DAILY Restasis MultiDose 0.05 % drops 1 drop EACH EYE DAILY hydralazine 25 mg tablet 25 mg PO BID Qty: 180 1RF diltiazem HCl 240 mg capsule,extended release 24hr 240 mg PO DAILY Qty: 30 0RF ezetimibe 10 mg tablet 10 mg PO DAILY famotidine 10 mg Tablet 10 mg PO DAILY NC
[2024-03-06] MEDS: FUROSEMIDE INJ 40 MG/4 ML VIAL 20 MG IV PUSH (15:43)
== END 2024-03-06 16:55 | disposition home or self-care (01) ==
LOC: ANHED 13:35 → ANH3MEDSUR 18:36
PROVIDERS: Internal Medicine; Nurse Practitioner Family; Admitting Provider General Practice; Emergency Provider Emergency Medicine; PCP Family Medicine; Visit Provider General Practice
DX: R55 Syncope and collapse (principal); R09.02 Hypoxemia; R42 Dizziness and giddiness; F41.9 Anxiety disorder, unspecified; I48.0 Paroxysmal atrial fibrillation; I13.0 Hypertensive heart and chronic kidney disease with heart failure and stage 1 through stage 4 chronic kidney disease, or unspecified chronic kidney disease; I50.33 Acute on chronic diastolic (congestive) heart failure; E11.22 Type 2 diabetes mellitus with diabetic chronic kidney disease; N18.4 Chronic kidney disease, stage 4 (severe); I25.10 Atherosclerotic heart disease of native coronary artery without angina pectoris; J44.9 Chronic obstructive pulmonary disease, unspecified; D63.1 Anemia in chronic kidney disease; K21.9 Gastro-esophageal reflux disease without esophagitis; E78.5 Hyperlipidemia, unspecified; I25.2 Old myocardial infarction; N25.0 Renal osteodystrophy; E11.21 Type 2 diabetes mellitus with diabetic nephropathy; Z20.822 Contact with and (suspected) exposure to COVID-19; Z79.82 Long term (current) use of aspirin; Z87.891 Personal history of nicotine dependence; Z66 Do not resuscitate; Z79.899 Other long term (current) drug therapy
CPT/HCPCS: 36415; 71045; 78582; 80048; 80053; 81001; 83735; 83880; 84443; 84484; 85025; 85027; 85380; 87086; 87637; 93005; 93306; 94618; 96374; 96375; 99285; A9270; A9540; A9558; G0378; J1940; J2405

== ENCOUNTER 2024-06-12 11:24 | Emergency (ER) | payer MEDICARE, SELFPAY ==
--- NOTE | 2024-06-12 11:29 | ED.FEMALEGU ---
HPI - Female Genitourinary General Chief complaint: Urogenital-Female Stated complaint: Uti Symptoms Source: patient and RN notes reviewed Mode of arrival: ambulatory Limitations: no limitations History of Present Illness MD elicited complaint: UTI Related Data Home Medications Medication Instructions Recorded Confirmed cyclosporine 0.05 % eye drops 1 drop ophthalmic (eye) DAILY 10/24/19 06/12/24 (Restasis MultiDose) carvedilol 12.5 mg tablet 25 mg PO Q12H 03/09/21 06/12/24 potassium chloride 20 mEq 20 meq PO DAILY 03/09/21 06/12/24 tablet,extended release(part/cryst) (Klor-Con M) ezetimibe 10 mg tablet 10 mg PO DAILY 09/11/23 06/12/24 cyanocobalamin (vitamin B-12) 50 50 mcg PO DAILY 12/09/23 06/12/24 mcg tablet (Vitamin B-12) ferrous sulfate 27 mg iron tablet 27 mg PO USEASDIRECTD 12/09/23 06/12/24 Allergies Allergy/AdvReac Type Severity Reaction Status Date / Time amiodarone Allergy Severe Unresponsiv Verified 06/12/24 11:32 e Review of Systems Review of Systems: CONSTITUTIONAL: Denies malaise, chills, sweats, or fever. CARDIOVASCULAR: Denies chest pain, palpitations, or edema. RESPIRATORY: Denies cough or dyspnea. GASTROINTESTINAL: Denies abdominal pain, nausea, vomiting, diarrhea GENITOURINARY: Reports dysuria, frequency, urgency, suprapubic pressure. Denies flank pain or hematuria. SKIN: Denies rash or itching. MUSCULOSKELETAL: Denies back pain or myalgia. All systems reviewed & are unremarkable except as noted in HPI and below PMFSH Past Medical History Medical History (Updated 03/03/24 @ 18:36 by Hannah Joshi MD) A-fib Paroxysmal Acute exacerbation of CHF (congestive heart failure) Acute kidney injury superimposed on chronic kidney disease Acute on chronic diastolic heart failure Acute on chronic renal failure Anemia Anxiety Anxiety Arthritis Bronchitis CAD (coronary artery disease) 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, with long-term current use of insulin Type 2 diabetes mellitus without complications UTI (urinary tract infection) Surgical History Surgical History H/O cardiac catheterization H/O maze procedure H/O mitral valve repair With a ring H/O: hysterectomy Intertrochanteric fracture of right hip ORIF with trochanteric nail September 13, 2023 Family History Family History Mother Family history of diabetes mellitus in first degree relative Family history of lung cancer Father Family history of coronary artery disease Hypertension Sibling Family history of diabetes mellitus in first degree relative Social History Social History (Updated 11/09/23 @ 13:35 by Tammi Cheney CMA) Social History: She has with her for over 50 years. She desires to be full code. She smoked half a pack a cigarettes per day for 40 years quit March 14, 2014. No illicit drug use but does occasionally drink alcohol. 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 She has 2 children and 2 grandchildren. Her has dementia and she nominated her daughter Debbie to be
[2024-06-12 11:30] VITALS: BP 135/66; PULSE 85; RESP 16; TEMP 36.2; O2SAT 96
[2024-06-12 11:51] LABS: EDUAAPPEAR Clear; EDUABILI Negative; EDUABLOOD Negative; EDUACOLOR1 Orange; EDUAGLUCOSE Negative; EDUAKETONE Negative; EDUALEUKO Negative; EDUANITRATE Positive; EDUAPH 5.5; EDUAPROTEIN 3+
--- NOTE | 2024-06-12 12:01 | ED.FEMALEGU ---
HPI - Female Genitourinary General Chief complaint: Urogenital-Female Stated complaint: Uti Symptoms Time Seen by Provider: 06/12/24 11:58 Source: patient and RN notes reviewed Mode of arrival: ambulatory Limitations: no limitations History of Present Illness HPI Narrative: 78-year-old female presents concern for urinary tract infection. She reports general malaise and suprapubic burning. Reports she has frequent UTIs, recent UTI she finished Augmentin 4-5 days ago but woke up with symptoms again last night. She denies fever, aches, chills, sweats, nausea, vomiting, back pain. She reports she took azo overnight MD elicited complaint: UTI Related Data Home Medications Medication Instructions Recorded Confirmed cyclosporine 0.05 % eye drops 1 drop ophthalmic (eye) DAILY 10/24/19 06/12/24 (Restasis MultiDose) carvedilol 12.5 mg tablet 25 mg PO Q12H 03/09/21 06/12/24 potassium chloride 20 mEq 20 meq PO DAILY 03/09/21 06/12/24 tablet,extended release(part/cryst) (Klor-Con M) ezetimibe 10 mg tablet 10 mg PO DAILY 09/11/23 06/12/24 cyanocobalamin (vitamin B-12) 50 50 mcg PO DAILY 12/09/23 06/12/24 mcg tablet (Vitamin B-12) ferrous sulfate 27 mg iron tablet 27 mg PO USEASDIRECTD 12/09/23 06/12/24 Allergies Allergy/AdvReac Type Severity Reaction Status Date / Time amiodarone Allergy Severe Unresponsiv Verified 06/12/24 11:32 e Review of Systems Review of Systems: CONSTITUTIONAL: Denies malaise, chills, sweats, or fever. CARDIOVASCULAR: Denies chest pain, palpitations, or edema. RESPIRATORY: Denies cough or dyspnea. GASTROINTESTINAL: Denies abdominal pain, nausea, vomiting, diarrhea GENITOURINARY: Reports suprapubic burning. Denies dysuria, frequency, urgency. Denies flank pain or hematuria. SKIN: Denies rash or itching. MUSCULOSKELETAL: Denies back pain or myalgia. All systems reviewed & are unremarkable except as noted in HPI and below PMFSH Past Medical History Medical History (Updated 06/12/24 @ 12:05 by Carla Pate NP) A-fib Paroxysmal Acute exacerbation of CHF (congestive heart failure) Acute kidney injury superimposed on chronic kidney disease Acute on chronic diastolic heart failure Acute on chronic renal failure Anemia Anxiety Anxiety Arthritis Bronchitis CAD (coronary artery disease) 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, with long-term current use of insulin Type 2 diabetes mellitus without complications UTI (urinary tract infection) Surgical History Surgical History H/O cardiac catheterization H/O maze procedure H/O mitral valve repair With a ring H/O: hysterectomy Intertrochanteric fracture of right hip ORIF with trochanteric nail September 13, 2023 Family History Family History Mother Family history of diabetes mellitus in first degree relative Family history of lung cancer Father Family history of coronary artery disease Hypertension Sibling Family history of diabetes mellitus in first degree relative Social History Social History (Updated 11/09/23 @ 13:35 by Tammi
== END 2024-06-12 12:09 | disposition home or self-care (01) ==
PROVIDERS: Emergency Provider Nurse Practitioner; PCP Family Medicine
DX: R10.30 Lower abdominal pain, unspecified (principal); R53.81 Other malaise; I48.0 Paroxysmal atrial fibrillation; D64.9 Anemia, unspecified; M19.90 Unspecified osteoarthritis, unspecified site; I25.10 Atherosclerotic heart disease of native coronary artery without angina pectoris; J44.9 Chronic obstructive pulmonary disease, unspecified; K21.9 Gastro-esophageal reflux disease without esophagitis; E78.5 Hyperlipidemia, unspecified; I13.0 Hypertensive heart and chronic kidney disease with heart failure and stage 1 through stage 4 chronic kidney disease, or unspecified chronic kidney disease; E11.22 Type 2 diabetes mellitus with diabetic chronic kidney disease; N18.4 Chronic kidney disease, stage 4 (severe); I50.32 Chronic diastolic (congestive) heart failure; I25.2 Old myocardial infarction; E11.42 Type 2 diabetes mellitus with diabetic polyneuropathy; Z87.891 Personal history of nicotine dependence
CPT/HCPCS: 81003; 87086; 99213; G0463

== ENCOUNTER 2024-11-02 10:09 | Inpatient (IN) | payer MEDICARE, SELFPAY ==
[2024-11-02] VITALS (11 sets, daily range): BP systolic 143–181; BP diastolic 62–89; PULSE 64–111; RESP 16–33; TEMP 36.5–37; O2SAT 92–95; BMI 23.2
--- NOTE | ~2024-11-02 | XR_ITS ---
CHEST RADIOGRAPH CLINICAL HISTORY: CHF and SOB . COMPARISON: 11/02/2024 TECHNIQUE: Single portable view of the chest. FINDINGS The cardiomediastinal silhouette is unremarkable. Decreased left-sided pleural effusion when compared with previous study. Increased interstitial markings are identified bilaterally, findings suggesting mild pulmonary vascul ar congestion. The lungs are otherwise clear. IMPRESSION: Mild pulmonary vascular congestion with a left-sided pleural effusion, minimally decreased from previ ous examination. Reviewed, dictated and finalized at location A. TABLE VENDOR IMPRESSION: Mild pulmonary vascular congestion with a left-sided pleural effusion, minimall y decreased from previous examination.
--- NOTE | ~2024-11-02 | XR_ITS ---
EXAMINATION: XR chest 2V DATE: 11/02/2024 11:41 INDICATION: Shortness of breath. TECHNIQUE: Frontal and lateral views of the chest were obtained. COMPARISON: Chest single view 03/06/2024 FINDINGS: There are small pleural effusions, left worse than right. Fox B-lines are noted, consist ent mild pulmonary edema. There are airspace opacities at left lung base. No pneumothorax. Cardiomega ly is noted. There are changes of heart valve replacement. Surgical clips overlie right shoulder. IMPRESSION: 1. Mild pulmonary edema. 2. Small pleural effusions with worsening on the left. 3. Worsened airspace opacities at left lung base, consistent with atelectasis or less likely pneumoni a. 4. Cardiomegaly. Reviewed, dictated and finalized at location A. OMIC SPECIALIST IMPRESSION: 1. Mild pulmonary edema. 2. Small pleural effusions with worsening on the left. 3. Worsened airspace opacities at left lung base, consistent with atelectasis o r less likely pneumonia. 4. Cardiomegaly.
--- NOTE | 2024-11-02 10:39 | ECG_ITS ---
Test Date: 2024-11-02 10:18:32 Measurements Intervals [place] Rate: 95 P: 0 TN: 0 QRS: -20 QRSD: 147 T: 116 QT: 394 QTc: 497 Interpretive Statements ATRIAL FIBRILLATION WITH ABERRANT CONDUCTION OR VENTRICULAR PREMATURE COMPLEXES INTRAVENTRICULAR CONDUCTION DELAY [130+ ms QRS DURATION] No previous ECG available for comparison Electronically Signed On 11-02-2024 12:49:06 AUTOMOBILE TECHNICIAN by Johnny Willis M.D.
[2024-11-02 10:50] LABS: Basophils Absolute Auto 0.1 K/mm3 (0.0-0.1); Basophils Percent Auto 0.9 % (0.2-1.2); Eosinophils Absolute Auto 0.8 K/mm3 (0-0.3); Eosinophils Percent Auto 8.9 % (0-4.4); Hematocrit 37.4 % (37.0-47.0); Hemoglobin 11.9 g/dL (12.0-15.0); Immature Granulocyte Absolute 0.04 K/mm3 (0.00-0.031); Immature Granulocyte Percent A 0.4 % (0-0.5); Lymphocytes Absolute Auto 1.31 K/mm3 (0.9-3.2); Lymphocytes Percent Auto 14.1 % (18.3-44.2); Mean Corpuscular HGB Conc 31.8 g/dl (32-36); Mean Corpuscular Hemoglobin 30.3 pg (26-34); Mean Corpuscular Volume 95.2 fl (80-100); Mean Platelet Volume 10.3 fl (7.4-10.4); Monocytes Absolute Auto 0.7 K/mm3 (0.1-0.6); Neutrophils Absolute Auto 6.4 K/mm3 (1.3-6.7); Neutrophils Percent Auto 68.7 % (45.5-73.1); Platelet Count Result 256 k/mm3 (150-375); Red Blood Count 3.93 M/mm3 (4.2-5.4); Red Cell Distribution Width 13.9 % (11.5-14.5); White Blood Count 9.3 K/mm3 (4.5-10.0)
--- NOTE | 2024-11-02 10:50 | ED_ITS ---
HPI - Arrhythmia/Palpitations General Chief Complaint: Arrhythmia/Palpitations Stated Complaint: palpatation Time Seen by Provider: 11/02/24 10:14 History of Present Illness HPI narrative: Patient is an 79-year-old female who presents ER with concerns for exacerbation of her congestive heart failure. She has been taking extra Lasix over last 2 days to try to feel improved. Can only walk to her kitchen before be coming incredibly winded. Typically able to ambulate around her home without issue. No leg swelling or weight gain that she has noticed. No chest pain or chest pressure. She endorses orthopnea. She feels palpitations of her atrial fibrillation that is chronic. Related Data Home Medications ?Medication ?Instructions ?Recorded ?Confirmed ?Last Taken ?Type cyclosporine 0.05 % eye drops 1 drop ophthalmic (eye) DAILY 10/24/19 11/02/24 03/03/24 History (Restasis MultiDose) ferrous sulfate 27 mg iron tablet 27 mg PO USEASDIRECTD 12/09/23 11/02/24 03/02/24 History acetaminophen 500 mg tablet 500 mg PO Q6H PRN pain 06/22/24 11/02/24 Unknown History (Tylenol Extra Strength) carvedilol 12.5 mg tablet 12.5 mg PO Q12H 06/22/24 11/02/24 Unknown History cholecalciferol (vitamin D3) 10 10 mcg PO DAILY 06/22/24 11/02/24 Unknown History mcg (400 unit) capsule cyanocobalamin (vitamin B-12) 50 100 mcg PO DAILY 06/22/24 11/02/24 Unknown History mcg tablet (Vitamin B-12) potassium chloride 20 mEq 20 meq PO DAILY 06/22/24 11/02/24 11/01/24 History tablet,extended release(part/cryst) (Klor-Con M) Allergies Allergy/AdvReac Type Severity Reaction Status Date / Time amiodarone Allergy Severe Unresponsiv Verified 11/02/24 15:34 e [facility] Past Medical History Medical History HLD (hyperlipidemia) 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 A-fib Paroxysmal Myocardial infarction Seasonal allergies Hypertensive heart disease with heart failure Surgical History Surgical History Intertrochanteric fracture of right hip ORIF with trochanteric nail September 13, 2023 H/O: hysterectomy H/O cardiac catheterization H/O maze procedure H/O mitral valve repair With a ring Family History Family History Mother Family history of diabetes mellitus in first degree relative Family history of lung cancer Father Family history of coronary artery disease Hypertension Sibling Family history of diabetes mellitus in first degree relative Social History Social History Social History: She has with her for over 50 years. She desires to be full code. She smoked half a pack a cigarettes per day for 40 years quit March 14, 2014. No illicit drug use but does occasionally drink alcohol. 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 She has 2 children and 2 grandchildren. Her has dementia and she nominated her daughter Debbie to be the one to make medical decisions for her if she is unable. Smoking packs per day: 0.5 Smoking cigarettes per day: 10.0 Years smoked: 40 Smoking pack-years: 20.00 Smoking status: Former smoker Second hand tobacco smoke exposure: Yes Additional smoking assessment comments: Occasional smoker for 40 years Alcohol intake: never Drinks per week: 0 Alcohol use details: once a year Substance use: never Substance use type: does not use Do You Feel Safe in your Home?: Yes Lack of Transportation: No Lack of Food: Never True Current Housing: I Have Housing Concerned About Future Housing: No Difficulty Paying Gas/Electric Bills: No Difficulty Paying for Meds: No Currently Unemployed: No Education: Bachelor's Degree Difficulty w/ Childcare or Family Care: No Living arrangements: assisted living Additional living arrangements comments: [place] Occupation/Education: retired Gender identity (if verbalized by the patient): Female Sexual Orientation (if Verbalized by the Patient): Straight or Heterosexual Spiritual care concerns: No Agree to blood products: Yes Exam 2 Narrative: GENERAL: Well-appearing, well-nourished, and in no acute distress. HEAD: Normocephalic, atraumatic. ENT: Mucous membranes moist. NECK: Supple. CHEST: Clear to auscultation. No respiratory distress. HEART: Irregularly irregular rate and rhythm. Normal peripheral pulses. ABDOMEN: Soft, nontender, nondistended. EXTREMITIES: Normal range of motion. No edema. SKIN: Warm, dry, no rash. NEURO: Alert and oriented x3. PSYCH: Normal mood and affect. Course Course Emergency Course: Admit to hospitalist service for diuresis and further management of heart failure exacerbation. Received IV Lasix and is requiring supplemental oxygen. Will have her american sign language teacher consult given elevated creatinine Vital Signs Vital signs: Vital Signs Temperature 97.7 F 11/02/24 10:09 Pulse Rate 111 H 11/02/24 10:09 Respiratory Rate 22 H 11/02/24 10:09 Blood Pressure 181/84 H 11/02/24 10:09 Pulse Oximetry 92 11/02/24 10:09 Oxygen Delivery Nasal Cannula 11/02/24 10:09 Oxygen Flow Rate 2 11/02/24 10:09 Temperature 98.0 F 11/02/24 17:06 Pulse Rate 69 11/02/24 17:06 Respiratory Rate 18 11/02/24 17:06 Blood Pressure 152/62 H 11/02/24 17:06 Pulse Oximetry 94 11/02/24 17:06 Oxygen Delivery Nasal Cannula 11/02/24 16:02 Oxygen Flow Rate 2 11/02/24 16:02 MDM - Arrhythmia/Palpitations Lab Data 11/02/24 10:45 11/02/24 10:45 Labs: Lab Results 11/02/24 Range/Units 10:45 WBC 9.3 (4.5-10.0) K/mm3 RBC 3.93 L (4.2-5.4) M/mm3 Hgb 11.9 L (12.0-15.0) g/dL Hct 37.4 (37.0-47.0) % MCV 95.2 (80-100) fl MCH 30.3 (26-34) pg MCHC 31.8 L (32-36) g/dl RDW 13.9 (11.5-14.5) % Plt Count 256 (150-375) k/mm3 MPV 10.3 (7.4-10.4) fl Immature Gran % (Auto) 0.4 (0-0.5) % Neut % (Auto) 68.7 (45.5-73.1) % Lymph % (Auto) 14.1 L (18.3-44.2) % [place] % (Auto) 7.0 (2.6-8.5) % Eos % (Auto) 8.9 H (0-4.4) % Baso % (Auto) 0.9 (0.2-1.2) % Lymph # (Auto) 1.31 (0.9-3.2) K/mm3 [place] # (Auto) 0.7 H (0.1-0.6) K/mm3 Eos # (Auto) 0.8 H (0-0.3) K/mm3 Baso # (Auto) 0.1 (0.0-0.1) K/mm3 Abs Immat Gran (auto) 0.04 H (0.00-0.031) K/mm3 Absolute Neuts (auto) 6.4 (1.3-6.7) K/mm3 Absolute Nucleated RBC 0.000 (0.0-0.012) K/mm3 Nucleated RBC % 0.0 (0.0-0.2) % PT 14.0 (11.1-14.7) Seconds INR 1.0 APTT 25.7 (22.3-36.8) Seconds Sodium 141 (137-145) mmol/L Potassium 3.8 (3.4-5.0) mmol/L Chloride 105 (98-107) mmol/L Carbon Dioxide 26 (22-30) mmol/L Anion Gap 10 (4-12) mmol/L BUN 40 H (7-17) mg/dL Creatinine 2.78 H (0.7-1.0) mg/dL Estim Creat Clear Calc 14 ml/min Estimated GFR 16 L (59 - ) Glucose 216 H (65-110) mg/dL Calcium 8.9 (8.4-10.2) mg/dL Total Bilirubin 0.9 (0.2-1.3) mg/dL AST 15 (14-36) U/L ALT 9 (6-35) U/L Alkaline Phosphatase 88 (38-126) U/L NT-Pro-B Natriuret Pep 52722 H (19.9-100) pg/mL Total Protein 7.0 (6.3-8.2) g/dL Albumin 4.0 (3.5-5.1) g/dL Influenza A (RT-PCR) Negative (Negative) Influenza B (RT-PCR) Negative (Negative) RSV (RT-PCR) Negative (Negative) SARS-CoV-2 RNA (RT-PCR) Negative (Negative) Imaging Data Radiologist's impression: ITS Impressions Chest X-Ray 11/02/24 11:46 IMPRESSION: 1. Mild pulmonary edema. 2. Small pleural effusions with worsening on the left. 3. Worsened airspace opacities at left lung base, consistent with atelectasis or less likely pneumonia. 4. Cardiomegaly. ECG Data EKG #1: ECG completion date: 11/02/24 ECG completion time: 10:18 EKG Interpretation: normal rate (95), atrial fibrillation, PVCs, non- specific ST changes, normal QRS and normal QT Critical Care Time Critical Care Time Critical Care Time: Yes Total Critical Care Time: 35 Discharge Plan Discharge Clinical Impression: Acute exacerbation of CHF (congestive heart failure) Qualifiers: Heart failure type: unspecified Qualified Code(s): I50.9 - Heart failure, unspecified Patient Disposition: Still a Patient Condition: Stable
[2024-11-02 11:00] LABS: Alanine Aminotransferase 9 U/L (6-35); Alkaline Phosphatase 88 U/L (38-126); Anion Gap 10 mmol/L (4-12); Aspartate Amino Transferase 15 U/L (14-36); Bilirubin,Total 0.9 mg/dL (0.2-1.3); Blood Urea Nitrogen 40 mg/dL (7-17); Calcium 8.9 mg/dL (8.4-10.2); Carbon Dioxide 26 mmol/L (22-30); Chloride 105 mmol/L (98-107); Estimated CRCL calculation 14 ml/min; Estimated Glomerular Filt Rate 16; Glucose 216 mg/dL (65-110); Potassium 3.8 mmol/L (3.4-5.0); Sodium 141 mmol/L (137-145)
[2024-11-02 11:01] LABS: Partial Thromboplastin Time 25.7 Seconds (22.3-36.8)
[2024-11-02 11:11] LABS: NT Pro B Type Natriuretic Pept 14300 pg/mL (19.9-100)
[2024-11-02 11:26] LABS: Influenza A QL RT-PCR Negative (Negative); Influenza B QL RT-PCR Negative (Negative); RSV RNA, RT-PCR Negative (Negative); SARS-CoV-2 RNA PCR Negative (Negative)
[2024-11-02] MEDS: FUROSEMIDE INJ 40 MG/4 ML VIAL IV PUSH (12:10)
--- NOTE | 2024-11-02 12:42 | PC.NURSE ---
External catheter placed on patient
--- NOTE | 2024-11-02 12:45 | P.HP_ITS ---
H&P: HPI History of Present Illness Date/Time: 11/02/24 12:45 Chief Complaint: SOB Narrative: 79 y/o F presents here with shortness of breath and palpitations with PMH of CHF, anemia, renal osteodystrophy, CKD stage 4, diabetes, he will CAD, paroxysmal AFib, NV, and COPD. The patient presents here via EMS from [place] for further evaluation of shortness of breath. The patient reports that she started feeling more short of breath and increased palpitations approximately 2 days ago. She has a hx of CHF and is currently on Lasix 20 mg daily. She increased her dose to 40 mg of Lasix 2 days ago without relief. She has been previously instructed by her sign maker to increase the dose briefly if she began to experience orthopnea or symptoms concerning for a CHF eacerbation. She reports no associated chest pain, increased lower extremity swelling or weight gain. She does report a dry cough and that her stomach has felt a little more full, she reports that she has previously presented with this symptom with her CHF exacerbations. She currently follows with cardiologyChan. Initial VS at presentation: 97.7? F, HR 111, RR 22, 181/84, and 92% on 2L NC. ED workup showed: No leukocytosis, hemoglobin 11.9, normal coags, creatinine 2.78 and GFR 16 (previously 2.6 and GFR 18 on 03/06/2024), glucose 216, BNP 13276, and viral PCR negative. CXR showed mild pulmonary edema, small pleural effusions with worsening on the left, worsened airspace opacities at the left lung base, and cardiomegaly. EKG showed AFib with aberrant conduction or ventricular premature complexes, intraventricular conduction delay, and rate 95. 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 A-fib Paroxysmal Myocardial infarction Seasonal allergies Hypertensive heart disease with heart failure Surgical History Surgical History Intertrochanteric fracture of right hip ORIF with trochanteric nail September 13, 2023 H/O: hysterectomy H/O cardiac catheterization H/O maze procedure H/O mitral valve repair With a ring Family History Family History Mother Family history of diabetes mellitus in first degree relative Family history of lung cancer Father Family history of coronary artery disease Hypertension Sibling Family history of diabetes mellitus in first degree relative Social History Social History Social History: She has with her for over 50 years. She desires to be full code. She smoked half a pack a cigarettes per day for 40 years quit March 14, 2014. No illicit drug use but does occasionally drink alcohol. 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 She has 2 children and 2 grandchildren. Her has dementia and she nominated her daughter Debbie to be the one to make medical decisions for her if she is unable. Smoking packs per day: 0.5 Smoking cigarettes per day: 10.0 Years smoked: 40 Smoking pack-years: 20.00 Smoking status: Former smoker Second hand tobacco smoke exposure: Yes Additional smoking assessment comments: Occasional smoker for 40 years Alcohol intake: never Drinks per week: 0 Alcohol use details: once a year Substance use: never Substance use type: does not use Do You Feel Safe in your Home?: Yes Lack of Transportation: No Lack of Food: Never True Current Housing: I Have Housing Concerned About Future Housing: No Difficulty Paying Gas/Electric Bills: No Difficulty Paying for Meds: No Currently Unemployed: No Education: Bachelor's Degree Difficulty w/ Childcare or Family Care: No Living arrangements: assisted living Additional living arrangements comments: [place] Occupation/Education: retired Gender identity (if verbalized by the patient): Female Sexual Orientation (if Verbalized by the Patient): Straight or Heterosexual Spiritual care concerns: No Agree to blood products: Yes Meds Home Medications and Allergies Home Medications ?Medication ?Instructions ?Recorded ?Confirmed ?Type cyclosporine 0.05 % eye drops 1 drop ophthalmic (eye) DAILY 10/24/19 11/02/24 History (Restasis MultiDose) diltiazem HCl 240 mg 240 mg PO DAILY #30 caps 12/30/19 11/02/24 Rx capsule,extended release 24 hr hydralazine 25 mg tablet 25 mg PO BID #180 tabs 07/16/23 11/02/24 Rx ferrous sulfate 27 mg iron tablet 27 mg PO USEASDIRECTD 12/09/23 11/02/24 History furosemide 20 mg tablet 20 mg PO SuMoWeThSa@0900 #20 tabs 12/14/23 11/02/24 Rx furosemide 40 mg tablet 40 mg PO TuFr@0900 #10 tabs 12/14/23 11/02/24 Rx acetaminophen 500 mg tablet 500 mg PO Q6H PRN pain 06/22/24 11/02/24 History (Tylenol Extra Strength) carvedilol 12.5 mg tablet 12.5 mg PO Q12H 06/22/24 11/02/24 History cholecalciferol (vitamin D3) 10 10 mcg PO DAILY 06/22/24 11/02/24 History mcg (400 unit) capsule cyanocobalamin (vitamin B-12) 50 100 mcg PO DAILY 06/22/24 11/02/24 History mcg tablet (Vitamin B-12) potassium chloride 20 mEq 20 meq PO DAILY 06/22/24 11/02/24 History tablet,extended release(part/cryst) (Klor-Con M) blood sugar diagnostic (FreeStyle #100 ea 08/30/24 09/28/24 Rx Test strips) lancets 28 gauge (FreeStyle #100 ea 08/30/24 09/28/24 Rx Lancets) ezetimibe 10 mg tablet 10 mg PO DAILY #90 tabs 09/28/24 11/02/24 Rx Allergies Allergy/AdvReac Type Severity Reaction Status Date / Time amiodarone Allergy Severe Unresponsiv Verified 11/02/24 15:34 e Vital Signs Vital Signs - 24 hr 11/02/24 10:09 11/02/24 10:29 Temperature 97.7 F Pulse Rate 111 H Respiratory Rate 22 H Blood Pressure 181/84 H Pulse Oximetry 92 93 Oxygen Delivery Nasal Cannula Nasal Cannula Oxygen Flow Rate 2 2 Exam Narrative: faint wheeze to left lung, right clear. no edema to peripheral. heart okay. Const: General: comfortable and no acute distress Other: , female, elderly, frail HENMT: Face/Nose/Sinus: Normal nares present Mouth: Yes moist mucous membranes Eyes: General: appearance normal, both eyes and all related structures Sclera: sclerae normal Pupils: Equal, round and reactive pupils present EOM: EOMs intact bilaterally Resp: Effort & Inspection: normal respiratory effort Other: Faint wheeze in left upper lung field, clear on right. Cardio: Rate: regular rate Rhythm: abnormal rhythm Other: S1-S2 present without murmur, rub, ectopy GI: Other: Abdomen soft, nondistended, nontender. Normoactive bowel sounds in all quadrants. Skin: General skin exam: normal color and no rashes or lesions noted Wounds: no wounds Neuro: Speech: normal speech Motor exam (neuro): 5/5 motor strength present throughout Sensory Exam: normal sensation Other: A&O x4 Extrem: General: normal to inspection Psych: Mental Status: mental status grossly normal Affect: normal affect Other: Good insight and judgment, pleasant H&P: Results Labs Labs: Short CBC 11/02/24 Range/Units 10:45 WBC 9.3 (4.5-10.0) K/mm3 Hgb 11.9 L (12.0-15.0) g/dL Hct 37.4 (37.0-47.0) % Plt Count 256 (150-375) k/mm3 [facility] 11/02/24 10:45 Sodium 141 Potassium 3.8 Chloride 105 Carbon Dioxide 26 BUN 40 H Creatinine 2.78 H Glucose 216 H Calcium 8.9 Liver Function 11/02/24 Range/Units 10:45 Total Bilirubin 0.9 (0.2-1.3) mg/dL AST 15 (14-36) U/L ALT 9 (6-35) U/L Alkaline Phosphatase 88 (38-126) U/L Albumin 4.0 (3.5-5.1) g/dL Assessment and Plan Assessment and plan (1) Acute exacerbation of CHF (congestive heart failure): Qualifiers: Heart failure type: unspecified Qualified Code(s): I50.9 - Heart failur e, unspecified Code(s): I50.9 - Heart failure, unspecified Status: Acute Assessment and Plan: - BNP 51479 - most recent echo (02/2024): Normal systolic function, estimated EF 55-60%, normal diastolic function. Moderate pulmonary hypertension. See report for further details. - currently on: Lasix 20 mg daily. Will continue as 40 mg IVP of Lasix daily. - monitor I&Os and daily weights - trend renal function and at TSH w/reflex (2) Acute respiratory failure with hypoxia: Code(s): J96.01 - Acute respiratory failure with hypoxia Status: Acute Assessment and Plan: - CXR showing at mild pulmonary edema and small pleural effusion. Suspect this is secondary to CHF exacerbation. See plan above. - continue supplemental O2 to maintain O2 sat above 92%, wean as tolerated (3) A-fib: Qualifiers: Atrial fibrillation type: persistent (not longstanding) Qualified Code(s): I48.19 - Other persistent atrial fibrillation Code(s): I48.91 - Unspecified atrial fibrillation Status: Chronic Assessment and Plan: - EKG, initial: AFib with aberrant conduction or ventricular premature complexes, rate 95, intraventricular conduction delay. - continue home medications: Diltiazem CD 240 mg daily (4) Chronic kidney disease, stage 4 (severe): Code(s): N18.4 - Chronic kidney disease, stage 4 (severe) Status: Chronic Assessment and Plan: - creatinine 2.78 and GFR 16, previously 2.6 and GFR 18 on 03/06/2024 - nephrology consulted, awaiting formal recs - trend renal function - trend electrolytes, correct as needed (5) Type 2 diabetes mellitus with diabetic nephropathy, with long-term current use of insulin: Code(s): E11.21 - Type 2 diabetes mellitus with diabetic nephropathy; Z79.4 - [facility] (current) use of insulin Status: Chronic Assessment and Plan: - hypoglycemia protocol - POC blood glucose ACHS - mno current home medications - correct regimen ordered - low dose TIDWM, based off BMI - A1C 6.6% on 12/10/2023, update (6) HTN (hypertension): Qualifiers: Hypertension type: unspecified Qualified Code(s): I10 - Essential (primary) hypertension Code(s): I10 - Essential (primary) hypertension Status: Chronic Assessment and Plan: - chronic, currently 143/89 - continue home medications: Coreg 12.5 mg b.i.d., hydralazine 25 mg b.i.d. - monitor Plan Diet: renal GI Prophylaxis: not currently indicated DVT Prophylaxis: SCDs Lines: peripheral Code Status: Full code Quality VTE Prophylaxis VTE prophylaxis: mechanical ordered Hospitalist MIPS Advance Care Plan I have confirmed that the patient's Advanced Care Plan is present, code status is documented, or surrogate decision maker is listed in patient medical record.: Yes Medication Reconciliation I have utilized all available resources to obtain, update and review the patients current medications (includes all prescriptions, OTC, herbals, cannabis, and nutritional supplements).: Yes
[2024-11-02 13:36] LABS: Add Urine Microscopic? YES; Appearance Urine Clear (Clear); Bacteria Urine None Seen /hpf; Bilirubin Urine Negative (Negative); Blood Urine Negative (Negative); Color Urine Yellow (Yellow); Glucose Urine UA Trace mg/dL (Negative); Ketones Urine Negative (Negative); Leukocyte Esterase Ur Negative LEU/UL (Negative); Nitrate Urine Negative (Negative); Non Pathogenic Casts 0-2; Protein Urine 3+ mg/dL (Negative); RBC Urine 0-2 /hpf (0-2); Specific Grav Ur 1.011 (1.001-1.035); Squamous Epithelial Cell Urine None Seen /hpf (Few); Urobilinogen Urine 0.2 mg/dL (<2.0); WBC Urine 0-5 /hpf (0-3); pH Urine 5.5 (5.0-9.0)
[2024-11-02] MEDS: IPRATROPIUM 0.5 MG/ALBUTEROL SULFATE 2.5 MG AMPUL.NEB 3 ML INHALATION (14:14)
--- NOTE | 2024-11-02 15:30 | ADMGEN ---
This patient, Vicente Schofield, was admitted to Medical Room 261-01. Patient/family oriented to hospital policies and general routines including ID bracelet, bed and alarms, visiting hours, pain management, procedures, bathroom and other care routines, personal items, smoking policy, room service/diet, and visiting hours. Information on how to activate the Rapid Response Team has been discussed. Patient/Family are encouraged to report perceived risks to care and to ask questions if they do not understand what they are told or what they should do.
--- NOTE | 2024-11-02 16:30 | P.CONNP_ITS ---
Assessment and Plan Assessment and plan (1) Chronic kidney disease, stage 4 (severe): Code(s): N18.4 - Chronic kidney disease, stage 4 (severe) Status: Chronic Assessment and Plan: * baseline creatinine runs ~ 2.6 - 3.2mg/dl in the last couple of years * evidence of CKD as far back as 2020 if not longer * due to hypertension, diabetes, vascular disease, and age-related change * was following with Dr. 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 * mild to moderate tricuspid valve regurgitation. * mild to moderate mitral valve regurgitation. * started on IV lasix daily * follow I/Os, daily weights, and respiratory status (3) Acute respiratory failure with hypoxia: Code(s): J96.01 - Acute respiratory failure with hypoxia Status: Acute Assessment and Plan: * suspect secondary to #2 * CXR findings noted * supplemental oxygen PRN * follow response to diuresis * follow overall respiratory status (4) A-fib: Qualifiers: Atrial fibrillation type: persistent (not longstanding) Qualified Code(s): I48.19 - Other persistent atrial fibrillation Code(s): I48.91 - Unspecified atrial fibrillation Status: Chronic Assessment and Plan: * known history * continue rate control strategy (5) HTN (hypertension): Qualifiers: Hypertension type: unspecified Qualified Code(s): I10 - Essential (primary) hypertension Code(s): I10 - Essential (primary) hypertension Status: Chronic Assessment and Plan: * reasonable control * may improve further with diuresis * follow trend of hemodynamics (6) Type 2 diabetes mellitus with diabetic nephropathy, with long-term current use of insulin: Code(s): E11.21 - Type 2 diabetes mellitus with diabetic nephropathy; 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 Thank you for allowing me to participate in the care of this patient. L History of Present Illness Reason for Consult Consult date: 11/02/24 Reason for consult: chronic renal failure Chief Complaint Chief complaint: CHF Exacerbation History of Present Illness Narrative: The patient is an 79-year-old female with a past medical history as outlined below who presented to [facility] due to complaints shortness of breath. The patient states that she has been feeling more short of breath for last 2 or 3 days. She does have a known history of congestive heart failure an attempt to try in fix this problem, she increased her dose of Lasix but this did not apparently help with her symptoms. 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 She notices this shortness of breath more so with exertional activities as is difficult for her to ambulate without feeling winded. She denies any chest pain, increased lower extremity edema weight gain, dizziness, or lightheadedness although she notices some palpitations consistent with her known history of atrial fibrillation. Given the ongoing symptoms of shortness of despite conservative therapy, nursing facility called EMS and she was subsequently transported to the emergency room further assessment. Workup and evaluation emergency room demonstrated the patient to be tachycardic, mildly tachypneic, and hypertensive with oxygen saturations of 92% on supplemental oxygen. Routine blood work demonstrated a normal white blood cell count, relative anemia, normal coagulation studies, and a chemistry panel consistent with her known history of kidney disease. Her BNP was elevated 14,300 and her viral testing for influenza, RSV, and COVID were negative. Her EKG demonstrated atrial fibrillation and her chest x-ray showed mild pulmonary edema with small pleural effusions along with cardiomegaly. Given her laboratory findings and imaging studies, it was felt that her shortness of breath was secondary to a CHF exacerbation. She was instituted on IV diuretic therapy and subsequently admitted to the further evaluation therapy. Renal consultation was requested due to her known history of chronic kidney disease. The patient's creatinine at least the last few years seems to fluctuate anywhere 2.7-3.2 mg/dL. She had been following with Dr. Santos for management of her chronic kidney disease but it would appear that she last saw him in December of 2022 without any further. It was felt that her chronic kidney disease was likely a manifestation of her hypertension and diabetes coupled with her need for diuretic therapy to maintain her volume status given her known history of congestive heart failure. Currently, the time my evaluation, the patient states she feels a bit better since admission but still not back to baseline in terms of her breathing. Review of Systems 2 Review of Systems: As per HPI. 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 A-fib Paroxysmal Myocardial infarction Seasonal allergies Hypertensive heart disease with heart failure Surgical History Surgical History Intertrochanteric fracture of right hip ORIF with trochanteric nail September 13, 2023 H/O: hysterectomy H/O cardiac catheterization H/O maze procedure H/O mitral valve repair With a ring Family History Family History Mother Family history of diabetes mellitus in first degree relative Family history of lung cancer Father Family history of coronary artery disease Hypertension Sibling Family history of diabetes mellitus in first degree relative Social History Social History Social History: She has with her for over 50 years. She desires to be full code. She smoked half a pack a cigarettes per day for 40 years quit March 14, 2014. No illicit drug use but does occasionally drink alcohol. 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 She has 2 children and 2 grandchildren. Her has dementia and she nominated her daughter Debbie to be the one to make medical decisions for her if she is unable. Smoking packs per day: 0.5 Smoking cigarettes per day: 10.0 Years smoked: 40 Smoking pack-years: 20.00 Smoking status: Former smoker Second hand tobacco smoke exposure: Yes Additional smoking assessment comments: Occasional smoker for 40 years Alcohol intake: never Drinks per week: 0 Alcohol use details: once a year Substance use: never Substance use type: does not use Do You Feel Safe in your Home?: Yes Lack of Transportation: No Lack of Food: Never True Current Housing: I Have Housing Concerned About Future Housing: No Difficulty Paying Gas/Electric Bills: No Difficulty Paying for Meds: No Currently Unemployed: No Education: Bachelor's Degree Difficulty w/ Childcare or Family Care: No Living arrangements: assisted living Additional living arrangements comments: [place] Occupation/Education: retired Gender identity (if verbalized by the patient): Female Sexual Orientation (if Verbalized by the Patient): Straight or Heterosexual Spiritual care concerns: No Agree to blood products: Yes Meds Home Medications and Allergies Home Medications ?Medication ?Instructions ?Recorded ?Confirmed ?Type cyclosporine 0.05 % eye drops 1 drop ophthalmic (eye) DAILY 10/24/19 11/02/24 History (Restasis MultiDose) diltiazem HCl 240 mg 240 mg PO DAILY #30 caps 12/30/19 11/02/24 Rx capsule,extended release 24 hr hydralazine 25 mg tablet 25 mg PO BID #180 tabs 07/16/23 11/02/24 Rx ferrous sulfate 27 mg iron tablet 27 mg PO USEASDIRECTD 12/09/23 11/02/24 History furosemide 20 mg tablet 20 mg PO SuMoWeThSa@0900 #20 tabs 12/14/23 11/02/24 Rx furosemide 40 mg tablet 40 mg PO TuFr@0900 #10 tabs 12/14/23 11/02/24 Rx acetaminophen 500 mg tablet 500 mg PO Q6H PRN pain 06/22/24 11/02/24 History (Tylenol Extra Strength) carvedilol 12.5 mg tablet 12.5 mg PO Q12H 06/22/24 11/02/24 History cholecalciferol (vitamin D3) 10 10 mcg PO DAILY 06/22/24 11/02/24 History mcg (400 unit) capsule cyanocobalamin (vitamin B-12) 50 100 mcg PO DAILY 06/22/24 11/02/24 History mcg tablet (Vitamin B-12) potassium chloride 20 mEq 20 meq PO DAILY 06/22/24 11/02/24 History tablet,extended release(part/cryst) (Klor-Con M) blood sugar diagnostic (FreeStyle #100 ea 08/30/24 09/28/24 Rx Test strips) lancets 28 gauge (FreeStyle #100 ea 08/30/24 09/28/24 Rx Lancets) ezetimibe 10 mg tablet 10 mg PO DAILY #90 tabs 09/28/24 11/02/24 Rx Allergies Allergy/AdvReac Type Severity Reaction Status Date / Time amiodarone Allergy Severe Unresponsiv Verified 11/02/24 15:34 e Vital Signs Vital Signs Temp Pulse Resp BP Pulse Ox O2 Del Method O2 Flow Rate 11/02/24 16:16 98.0 F 69 18 152/62 H 94 11/02/24 16:02 95 Nasal Cannula 2 11/02/24 16:00 66 11/02/24 14:21 66 30 H 11/02/24 14:14 64 33 H 11/02/24 12:30 74 24 H 143/89 H 95 11/02/24 10:29 93 Nasal Cannula 2 11/02/24 10:09 97.7 F 111 H 22 H 181/84 H 92 Nasal Cannula 2 Exam 2 Narrative: GENERAL APPEARANCE: somewhat frail and elderly female in no acute distress HEENT: normocephalic, atraumatic, normal conjunctiva and sclera, nares patient NECK: no lymphadenopathy, thyromegaly, or JVD MOUTH: normal lips, teeth, and gums CARDIOVASCULAR: RRR, normal S1 and S2, no rub RESPIRATORY: coarse breath sounds; decreased at bases ABDOMEN: soft, nontender, nondistended, positive bowel sounds present EXTREMITIES: no evidence of cyanosis, clubbing, or edema NEUROLOGICAL: alert and oriented x 3; CN II - XII intact bilaterally; no focal deficits noted Results Lab Results 11/03/24 05:11 11/03/24 05:11 Lab results: Most recent lab results Calcium 8.9 mg/dL (8.4-10.2) 11/02/24 10:45
[2024-11-02 17:00] LABS: Glucose Point of Care 123 mg/dl (65-105)
[2024-11-02] MEDS: hydrALAZINE HCL 25 MG TABLET PO (17:08)
[2024-11-02] MEDS: carvediloL 12.5 MG TABLET PO (21:02)
[2024-11-03] VITALS (12 sets, daily range): BP systolic 133–147; BP diastolic 65–70; PULSE 65–86; RESP 16–18; TEMP 36.5–36.8; O2SAT 94–96; BMI 23.3
--- NOTE | 2024-11-03 | ECHO_ITS ---
Patient Info Name: Vicente Schofield Age: 79 years : 1945 Gender: Female Ht: 67 in Wt: 147 lbs BSA: 1.78 m2 HR: 70 bpm BP: 172 / 69 mmHg Technical Quality: Poor Exam Date: 11/03/2024 11:48 AM Exam Location: Echo Lab Patient Status: Outpatient Admit Date: 11/02/2024 Staff Ordering Physician: Maxine Xie APRN Labeling Specialist: Gary Bennett RDCS Attending Provider: Debbie Joy APRN Referring Physician: Anne-Marie QUACH; Exam Type: CA echo dop color flow w con Study Info Indications - ELEVATED BNP - HYPOXIA - SOB Complete two-dimensional, color flow and Doppler transthoracic echocardiogram is performed with contrast to opacify the left ventricle and to improve the deliniation of the left ventricle endocardial borders. Contrast/Agitated Saline Contrast/Ag. Saline: Definity Amount: 2.00 ml Existing IV Access: Yes Reason for Poor Study: poor echocardiographic windows Summary 1. Left ventricular chamber dimension is normal. 2. Left ventricular systolic function is normal, estimated at 50-55%. 3. There is moderately increased left ventricular wall thickness. 4. Right ventricular systolic function is normal. 5. Left atrial chamber dimension is moderately enlarged. 6. Right atrial chamber dimension is moderately enlarged. 7. 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 8. There is mild tricuspid valve regurgitation. 9. Pulmonary hypertension, estimated pulmonary arterial systolic pressure is 65 mmHg. 10. Left pleural effusion present. Left Ventricle Left ventricular chamber dimension is normal. Left ventricular systolic function is normal, estimated at 50-55%. There is moderately increased left ventricular wall thickness. The left ventricular diastolic function is indeterminate. Right Ventricle Right ventricular chamber dimension is normal. Right ventricular systolic function is normal. Left Atria Left atrial chamber dimension is moderately enlarged. Right Atria Right atrial chamber dimension is moderately enlarged. Atrial Septum Intact interatrial septum visualized by color flow imaging. Aortic Valve The aortic valve is trileaflet. There is no aortic valve stenosis. There is no aortic valve regurgitation. Pulmonic Valve The pulmonic valve is not well visualized. There is trace pulmonic regurgitation. Mitral Valve There is 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. Tricuspid Valve There is mild tricuspid valve regurgitation. Pulmonary hypertension, estimated pulmonary arterial systolic pressure is 65 mmHg. Pericardium/Pleural Left pleural effusion present. There is no pericardial effusion. Inferior Vena Cava Normal inferior vena cava with <50% collapse upon inspiration consistent with elevated right atrial pressure, 8 mmHg. Aorta The aortic root size at the sinus of Valsalva is normal. Left Ventricular Outflow Tract Name Value Normal LVOT 2D LVOT Diameter 1.68 cm LVOT Doppler LVOT Peak Gradient 2 mmHg LVOT Mean Gradient 1 mmHg LVOT VTI 14.63 cm LVOT VTI/AV VTI Ratio 0.64 LVOT Stroke Volume 32.33 ml LVOT CO 1.97 l/min LVOT CI 1.11 L/min/m2 Pulmonic Valve Name Value Normal RVOT Doppler RVOT Peak Gradient 1 mmHg PV Doppler PV Peak Gradient 2 mmHg PV Regurgitation Doppler [place] Peak End Diastolic Velocity 138.33 cm/s Mitral Valve Name Value Normal MV Doppler MV Peak Gradient 4 mmHg MV Mean Gradient 1 mmHg MV Decel [place] 737.54 cm/s2 MV PHT 0 s MV Area (PHT) 4.63 cm2 4.00-5.00 MV Area (Cont Eq VTI) 0.96 cm2 MV Diastolic Function MV E Peak Velocity 120.76 cm/s MV A Peak Velocity 0.76 cm/s MV E/A 159.34 MV Decel Time 0 s MV Annular TDI MV E/e' (Septal) 22.46 <=8.00 MV E/e' (Lateral) 18.27 <=8.00 MV E/e' (Average) 20.37 Tricuspid Valve Name Value Normal TV Regurgitation Doppler TR Peak Velocity 377.17 cm/s TR Peak Gradient 57 mmHg Estimated PAP/RSVP RA Pressure 8 mmHg <=5 PA Systolic Pressure 65 mmHg <36 RV Systolic Pressure 65 mmHg <36 Aorta Name Value Normal Ascending Aorta Ao Root Diameter (MM) 3.28 cm Ao Root Diam Index (MM) 1.84 cm/m2 Aortic Valve Name Value Normal AV Doppler AV Peak Velocity 107.83 cm/s AV Peak Gradient 3 mmHg AV Mean Gradient 2 mmHg AV VTI 22.80 cm AV Area (Cont Eq VTI) 1.42 cm2 >=3.00 AV Area (Cont Eq He) 1.70 cm2 AV Regurgitation 2D LVOT Area 2.21 cm2 Ventricles Name Value Normal LV Dimensions 2D/MM IVS Diastolic Thickness (2D) 0.89 cm 0.60-1.00 LVID Diastole (2D) 4.88 cm 3.80-5.20 LVIW Diastolic Thickness (2D) 0.97 cm 0.60-0.90 LVID Systole (2D) 4.30 cm 2.20-3.50 LVOT Diameter 1.68 cm LV Mass (2D Cubed) 158.39 g 67.00-162.00 LV Mass Index (2D Cubed) 0.01 g/cm2 0.00-0.01 Relative Wall Thickness (2D) 0.40 LV Fractional Shortening/Ejection Fraction 2D/MM LV Fractional Shortening (2D) 19 % 27-45 LV EF (2D Teicholz) 38 % 54-74 LV Diastolic Volume (4C MOD) 127.80 ml LV EF (4C MOD) 36 % LV Diastolic Volume (2C MOD) 94.89 ml LV EF (2C MOD) 38 % LV Diastolic Volume (BP MOD) 111.43 ml 46.00-106.00 LV Diastolic Volume Index (BP MOD) 0.06 l/m2 0.03-0.06 LV Systolic Volume (BP MOD) 69.52 ml 14.00-42.00 LV Systolic Volume Index (BP MOD) 0.04 l/m2 0.01-0.02 LV EF (BP MOD) 38 % 54-74 LV Diastolic Length (4C) 8.38 cm LV Systolic Length (4C) 7.73 cm LV Stroke Volume (4C MOD) 45.76 ml Atria Name Value Normal LA Dimensions LA Dimension (MM) 4.32 cm 2.70-3.80 LA Volume (4C A-L) 68.75 ml LA Volume (BP A-L) 75.78 ml RA Dimensions RA Area (4C) 29.80 cm2 <=18.00 Report Signatures
[2024-11-03 05:42] LABS: Basophils Absolute Auto 0.1 K/mm3 (0.0-0.1); Basophils Percent Auto 0.8 % (0.2-1.2); Eosinophils Percent Auto 11.8 % (0-4.4); Hematocrit 33.5 % (37.0-47.0); Hemoglobin 10.4 g/dL (12.0-15.0); Immature Granulocyte Absolute 0.02 K/mm3 (0.00-0.031); Immature Granulocyte Percent A 0.2 % (0-0.5); Lymphocytes Absolute Auto 1.23 K/mm3 (0.9-3.2); Lymphocytes Percent Auto 14.9 % (18.3-44.2); Mean Corpuscular Hemoglobin 29.9 pg (26-34); Mean Corpuscular Volume 96.3 fl (80-100); Mean Platelet Volume 10.4 fl (7.4-10.4); Monocytes Absolute Auto 0.7 K/mm3 (0.1-0.6); Neutrophils Absolute Auto 5.3 K/mm3 (1.3-6.7); Neutrophils Percent Auto 64.3 % (45.5-73.1); Platelet Count Result 224 k/mm3 (150-375); Red Blood Count 3.48 M/mm3 (4.2-5.4); Red Cell Distribution Width 14.2 % (11.5-14.5); White Blood Count 8.3 K/mm3 (4.5-10.0)
[2024-11-03 05:51] LABS: Hemoglobin A1C 7.1 % (<5.7)
[2024-11-03 05:55] LABS: Alanine Aminotransferase 6 U/L (6-35); Albumin Level 3.3 g/dL (3.5-5.1); Alkaline Phosphatase 71 U/L (38-126); Anion Gap 6 mmol/L (4-12); Aspartate Amino Transferase 17 U/L (14-36); Bilirubin,Total 0.7 mg/dL (0.2-1.3); Blood Urea Nitrogen 41 mg/dL (7-17); Calcium 8.2 mg/dL (8.4-10.2); Carbon Dioxide 29 mmol/L (22-30); Chloride 103 mmol/L (98-107); Estimated CRCL calculation 16 ml/min; Estimated Glomerular Filt Rate 18; Glucose 99 mg/dL (65-110); Potassium 3.4 mmol/L (3.4-5.0); Sodium 138 mmol/L (137-145)
[2024-11-03 08:11] LABS: Glucose Point of Care 105 mg/dl (65-105)
--- NOTE | 2024-11-03 09:28 | P.PNNP_ITS ---
Progress Note: A&P Assessment and Plan (1) Chronic kidney disease, stage 4 (severe): Code(s): N18.4 - Chronic kidney disease, stage 4 (severe) Status: Chronic Assessment and Plan: * baseline creatinine runs ~ 2.6 - 3.2mg/dl in the last couple of years * evidence of CKD as far back as 2020 if not longer * due to hypertension, diabetes, vascular disease, and age-related change * Creatinine seems to be relatively stable consider her diuresis. (2) Acute exacerbation of CHF (congestive heart failure): Qualifiers: Heart failure type: unspecified Qualified Code(s): I50.9 - Heart failure, unspecified Code(s): I50.9 - Heart failure, unspecified Status: Acute Assessment and Plan: * volume overload. * admission CXR with pulmonary [place] * [place] [address] [place] * last Echo noted (February 2024): * left ventricular systolic function is normal, estimated at 55-60% * right ventricular systolic function is normal * moderate pulmonary hypertension, estimated pulmonary arterial systolic pressure is 62 mmHg. * mild to moderate tricuspid valve regurgitation. * mild to moderate mitral valve regurgitation. * Urine output not very substantial. * Breathing does seem to be a little bit better. * Will increase Lasix to 80 b.i.d. and give 1 dose of metolazone today (3) A-fib: Qualifiers: Atrial fibrillation type: persistent (not longstanding) Qualified Code(s): I48.19 - Other persistent atrial fibrillation Code(s): I48.91 - Unspecified atrial fibrillation Status: Chronic Assessment and Plan: * HR is good (4) HTN (hypertension): Qualifiers: Hypertension type: unspecified Qualified Code(s): I10 - Essential (primary) hypertension Code(s): I10 - Essential (primary) hypertension Status: Chronic Assessment and Plan: * systolic 140 to 170 * recheck tomorrow after on more lasix. * may improve further with diuresis * follow trend of hemodynamics (5) Type 2 diabetes mellitus with diabetic nephropathy, with long-term current use of insulin: Code(s): E11.21 - Type 2 diabetes mellitus with diabetic nephropathy; Z79.4 - residential (current) use of insulin Status: Chronic Assessment and Plan: * follow accu-cheks * glycemic control per hospitalist Subjective Date/time seen: 11/03/24 09:28 Interval history: K is feeling a little better. Less short of breath less swollen. Not much of an appetite. Review of Systems Cardiovascular: Cardiovascular: Reports no additional cardiovascular complaints Respiratory: Respiratory: Reports no additional respiratory complaints Gastrointestinal: Gastrointestinal: Reports no additional gastrointestinal com plaints Genitourinary: Genitourinary: Reports no additional female genitourinary complaints Exam Narrative: WDWN in NAD skin no rash head ncat lungs few crackles at both bases cor irreg irreg no rub abd BS+ nontender and soft ext 1+bilat edema. Objective Data Vital Signs Vital Signs: Vital Signs - 24 hr 11/02/24 10:09 11/02/24 10:29 11/02/24 12:30 Temperature 97.7 F Pulse Rate 111 H 74 Respiratory Rate 22 H 24 H Blood Pressure 181/84 H 143/89 H Pulse Oximetry 92 93 95 Oxygen Delivery Nasal Cannula Nasal Cannula Oxygen Flow Rate 2 2 11/02/24 14:14 11/02/24 14:21 11/02/24 16:00 Temperature Pulse Rate 64 66 66 Respiratory Rate 33 H 30 H Blood Pressure Pulse Oximetry Oxygen Delivery Oxygen Flow Rate 11/02/24 16:02 11/02/24 17:06 11/02/24 20:00 Temperature 98.0 F Pulse Rate 69 Respiratory Rate 18 Blood Pressure 152/62 H Pulse Oximetry 95 94 93 Oxygen Delivery Nasal Cannula Nasal Cannula Oxygen Flow Rate 2 2 11/02/24 20:00 11/02/24 21:02 11/02/24 22:30 Temperature 98.6 F Pulse Rate 69 72 75 Respiratory Rate 16 Blood Pressure 172/69 H Pulse Oximetry 92 Oxygen Delivery Oxygen Flow Rate 11/03/24 00:00 11/03/24 04:00 11/03/24 07:17 Temperature 98.0 F Pulse Rate 72 70 71 Respiratory Rate 16 Blood Pressure 147/65 H Pulse Oximetry 95 Oxygen Delivery Oxygen Flow Rate Intake/Output Intake/Output: Intake & Output 10/31/24 11/01/24 11/02/24 11/03/24 23:59 23:59 23:59 23:59 Intake Total 480 250 Output Total 100 600 Balance 380 -350 Meds/Results Medications: Active Medications Generic Name Dose Route Start Last Admin Trade Name Freq PRN Reason Stop Dose Admin Acetaminophen 650 mg 11/02/24 12:45 Acetaminophen 325 Mg Tablet PO Q4H PRN Mild Pain (1-3) or Fever Hydrocodone Bitart/Acetaminophen 1 tab 11/02/24 12:45 Hydrocodone/Acetaminophen (*Crx) 5-325 Mg Tablet PO Q4H PRN Pain Rated 4-6 Carvedilol 12.5 mg 11/02/24 21:00 11/02/24 21:02 Carvedilol 12.5 Mg Tablet PO 12.5 mg Q12HR SUKUMAR Administration Cyanocobalamin 250 mcg 11/03/24 09:00 Cyanocobalamin 250 Mcg Tablet PO QAM SUKUMAR Cyclosporine 1 drop 11/03/24 09:00 Cyclosporine 0.4 Ml Ophth Solution EACH EYE DAILY [facility] Dextrose 12.5 gm 11/02/24 13:01 Dextrose 50% 25 Gm/50 Ml Syringe IV PUSH PRN PRN Hypoglycemia Protocol Diltiazem HCl 240 mg 11/03/24 09:00 Diltiazem Hcl Cd 240 Mg Cap.24hr PO DAILY [facility] Ezetimibe 10 mg 11/03/24 09:00 Ezetimibe 10 Mg Tablet PO DAILY SUKUMAR Ferrous Sulfate 142 mg 11/03/24 08:00 Ferrous Sulfate Dried 142 Mg Tabcr PO Q48H [facility] Furosemide 40 mg 11/03/24 09:00 Furosemide Inj 40 Mg/4 Ml Vial IV PUSH DAILY SUKUMAR Glucagon 1 mg 11/02/24 13:01 Glucagon For Inj 1 Mg Vial IM PRN PRN Hypoglycemia Protocol Glucose 15 gm 11/02/24 13:01 Glucose Oral Gel 15 Gm Of Glucse In 37.5 Gm Tube PO PRN PRN Hypoglycemia Protocol Hydralazine HCl 25 mg 11/02/24 17:00 11/02/24 17:08 Hydralazine Hcl 25 Mg Tablet PO 25 mg BID SUKUMAR Administration Dextrose 1,000 mls @ 100 mls/hr 11/02/24 13:01 Dextrose 5% 1,000 Ml IVPB PRN PRN Hypoglycemia Protocol Insulin Aspart 2 - 5 units 11/02/24 17:00 11/02/24 17:00 Insulin Aspart (*Bkc) 100 Units/Ml SUB-Q Not Given TIDWM [facility] Protocol Ondansetron HCl 4 mg 11/02/24 12:45 Ondansetron Inj 4 Mg/2 Ml Vial IV PUSH Q4H PRN Nausea Perflutren Lipid Microsphere 0 ml 11/02/24 13:01 Perflutren Lipid Microspheres 1.5 Ml Vial Diluted To 10 Ml Total Volume IV PUSH 11/05/24 13:01 ONCE PRN adequate visualization Protocol Potassium Chloride 20 meq 11/03/24 09:00 Potassium Chloride 20 Meq Er Tablet PO DAILY [facility] Vitamin D 400 units 11/03/24 09:00 Cholecalciferol 400 Units Tablet (Vit D) PO DAILY [facility] Radiology Results: ITS Impressions Chest X-Ray 11/02/24 11:46 IMPRESSION: 1. Mild pulmonary edema. 2. Small pleural effusions with worsening on the left. 3. Worsened airspace opacities at left lung base, consistent with atelectasis or less likely pneumonia. 4. Cardiomegaly. Labs Labs: Laboratory Results - last 24 hr 11/02/24 11/02/24 11/02/24 10:45 13:24 16:57 WBC 9.3 RBC 3.93 L Hgb 11.9 L Hct 37.4 MCV 95.2 MCH 30.3 MCHC 31.8 L RDW 13.9 Plt Count 256 MPV 10.3 Immature Gran % (Auto) 0.4 Neut % (Auto) 68.7 Lymph % (Auto) 14.1 L M[place]rack[place] % (Auto) 7.0 Eos % (Auto) 8.9 H Baso % (Auto) 0.9 Lymph # (Auto) 1.31 [place] # (Auto) 0.7 H Eos # (Auto) 0.8 H Baso # (Auto) 0.1 Abs Immat Gran (auto) 0.04 H Absolute Neuts (auto) 6.4 Absolute Nucleated RBC 0.000 Nucleated RBC % 0.0 PT 14.0 INR 1.0 APTT 25.7 Sodium 141 Potassium 3.8 Chloride 105 Carbon Dioxide 26 Anion Gap 10 BUN 40 H Creatinine 2.78 H Estim Creat Clear Calc 14 Estimated GFR 16 L Glucose 216 H POC Capillary Glucose 123 H Hemoglobin A1c Calcium 8.9 Total Bilirubin 0.9 AST 15 ALT 9 Alkaline Phosphatase 88 NT-Pro-B Natriuret Pep 20832 H Total Protein 7.0 Albumin 4.0 TSH (Reflex) Urine Color Yellow Urine Appearance Clear Urine pH 5.5 Ur Specific [place] 1.011 Urine Protein 3+ H Urine Glucose (UA) Trace H Urine Ketones Negative Ur Blood (Man) Negative Urine Nitrate Negative Urine Bilirubin Negative Urine Urobilinogen 0.2 Leukocyte Esterase Rfl Negative Urine RBC 0-2 Urine WBC 0-5 Ur Squamous Epith Cells None seen Urine Bacteria None seen Urine Casts 0-2 Influenza A (RT-PCR) Negative Influenza B (RT-PCR) Negative RSV (RT-PCR) Negative SARS-CoV-2 RNA (RT-PCR) Negative 11/03/24 11/03/24 05:11 08:08 WBC 8.3 RBC 3.48 L Hgb 10.4 L Hct 33.5 L MCV 96.3 MCH 29.9 MCHC 31.0 L RDW 14.2 Plt Count 224 MPV 10.4 Immature Gran % (Auto) 0.2 Neut % (Auto) 64.3 Lymph % (Auto) 14.9 L [place] % (Auto) 8.0 Eos % (Auto) 11.8 H Baso % (Auto) 0.8 Lymph # (Auto) 1.23 [place] # (Auto) 0.7 H Eos # (Auto) 1.0 H Baso # (Auto) 0.1 Abs Immat Gran (auto) 0.02 Absolute Neuts (auto) 5.3 Absolute Nucleated RBC 0.000 Nucleated RBC % 0.0 PT INR APTT Sodium 138 Potassium 3.4 Chloride 103 Carbon Dioxide 29 Anion Gap 6 BUN 41 H Creatinine 2.58 H Estim Creat Clear Calc 16 Estimated GFR 18 L Glucose 99 POC Capillary Glucose 105 Hemoglobin A1c 7.1 H Calcium 8.2 L Total Bilirubin 0.7 AST 17 ALT 6 Alkaline Phosphatase 71 NT-Pro-B Natriuret Pep Total Protein 6.0 L Albumin 3.3 L TSH (Reflex) 2.320 Urine Color Urine Appearance Urine pH Ur Specific [place] Urine Protein Urine Glucose (UA) Urine Ketones Ur Blood (Man) Urine Nitrate Urine Bilirubin Urine Urobilinogen Leukocyte Esterase Rfl Urine RBC Urine WBC Ur Squamous Epith Cells Urine Bacteria Urine Casts Influenza A (RT-PCR) Influenza B (RT-PCR) RSV (RT-PCR) SARS-CoV-2 RNA (RT-PCR)
[2024-11-03] MEDS: carvediloL 12.5 MG TABLET PO ×2 (09:53→21:57)
[2024-11-03] MEDS: FERROUS SULFATE DRIED 142 MG TABCR PO (09:53)
[2024-11-03] MEDS: EZETIMIBE 10 MG TABLET PO (09:54)
[2024-11-03] MEDS: CHOLECALCIFEROL 400 UNITS TABLET (VIT D) PO (09:54)
[2024-11-03] MEDS: hydrALAZINE HCL 25 MG TABLET PO ×2 (09:54→16:52)
[2024-11-03] MEDS: dilTIAZem HCL CD 240 MG CAP.24HR PO (09:54)
[2024-11-03] MEDS: CYANOCOBALAMIN 250 MCG TABLET PO (09:54)
[2024-11-03] MEDS: POTASSIUM CHLORIDE 20 MEQ ER TABLET PO (09:54)
[2024-11-03] MEDS: metOLazone 5 MG TABLET PO (09:59)
[2024-11-03] MEDS: FUROSEMIDE INJ 40 MG/4 ML VIAL IV PUSH (09:59)
[2024-11-03] MEDS: cycloSPORINE 0.4 ML OPHTH SOLUTION 1 DROP EACH EYE (09:59)
--- NOTE | 2024-11-03 12:32 | PC.NURSE ---
Patient refused Noon blood sugar aware
[2024-11-03] MEDS: POTASSIUM CHLORIDE 20 MEQ ER TABLET 40 MEQ PO (12:38)
[2024-11-03] MEDS: PERFLUTREN LIPID MICROSPHERES 1.5 ML VIAL DILUTED TO 10 ML TOTAL VOLUME IV PUSH (12:40)
--- NOTE | 2024-11-03 12:53 | IVDEFINITY ---
Prior to administration of IV Definity the patient was educated on the risks and benefits of the imaging enhancing agent including potential adverse side effects. The patient verbalized understanding. Allergies were verified. No exclusion criteria were identified and at least one of the following inclusion criteria were met: 1) physician request, 2) patient technically difficult to image (per the [place] [employer]chocardi[employer] guidelines of two or more segments not discernable within the apical view), or 3) questionable left ventricular function. ?
--- NOTE | 2024-11-03 15:06 | P.PNIM_ITS ---
Progress Note: A&P Assessment and Plan (1) Acute exacerbation of CHF (congestive heart failure): Qualifiers: Heart failure type: unspecified Qualified Code(s): I50.9 - Heart failure, unspecified Code(s): I50.9 - Heart failure, unspecified Status: Acute Assessment and Plan: * BNP 00955 * most recent echo (02/2024): Normal systolic function, estimated EF 55-60%, normal diastolic function. Moderate pulmonary hypertension. See report for further details. * Follow Echo pending * currently on: Lasix 20 mg daily. Will continue as 40 mg IVP of Lasix daily. * monitor I&Os and daily weights * trend renal function and at TSH w/reflex 11/03/24: * Nephro increased Lasix to 80mg BID x 1 day * Renal stable at baseline * Echo pending (2) Acute respiratory failure with hypoxia: Code(s): J96.01 - Acute respiratory failure with hypoxia Status: Acute Assessment and Plan: * CXR showing at mild pulmonary edema and small pleural effusion. Suspect this is secondary to CHF exacerbation. See plan above. * Continue supplemental O2 to maintain O2 sat above 92%, wean as tolerated * Currently wears supplemental oxygen p.r.n. (3) A-fib: Qualifiers: Atrial fibrillation type: persistent (not longstanding) Qualified Code(s): I48.19 - Other persistent atrial fibrillation Code(s): I48.91 - Unspecified atrial fibrillation Status: Chronic Assessment and Plan: * EKG, initial: AFib with aberrant conduction or ventricular premature complexes, rate 95, intraventricular conduction delay. * continue home medications: Diltiazem CD 240 mg daily * Will start patient on eliquis renal dose CHADVASC is 7 (4) Chronic kidney disease, stage 4 (severe): Code(s): N18.4 - Chronic kidney disease, stage 4 (severe) Status: Chronic Assessment and Plan: Acute on chronic renal failure CKD stage 4 * Cr 2.73 close to baseline improved today * nephrology consulted * Avoid nephrotoxic drugs. * Monitor antihypertensive drug therapy. * Avoid NSAIDs. * Routine CMP monitoring GFR. * Monitor electrolytes especially potassium. * Antibiotic doses depending on creatinine clearance. (5) Type 2 diabetes mellitus with diabetic nephropathy, with long-term current use of insulin: Code(s): E11.21 - Type 2 diabetes mellitus with diabetic nephropathy; Z79.4 - intermediate teacher (current) use of insulin Status: Chronic Assessment and Plan: * Diet controlled does not take any medications at home * Patient requested no fingersticks of SSI (6) HTN (hypertension): Qualifiers: Hypertension type: unspecified Qualified Code(s): I10 - Essential (primary) hypertension Code(s): I10 - Essential (primary) hypertension Status: Chronic Assessment and Plan: * chronic, currently 143/89 * continue home medications: Coreg 12.5 mg b.i.d., hydralazine 25 mg b.i.d., Cardizem * monitor Plan Code status: Full code per patient DVT prophylaxis: Eliquis Stress ulcer prophylaxis: NA PT/OT notes: PT/OT pending Disposition: Patient continues admission to the medical unit for CHF exacerbation will continue with high-dose IV diuresis is also being followed by Nephrology for CKD 3 2 monitor renal function closely during diuresis. patient is from [facility] in plan will be to discharge back to [facility] when medically stable, PT/ OT pending for further recommendation. Time Spent With Patient Time with patient: 15 - 25 minutes Subjective Date/time seen: 11/03/24 15:06 Interval history: patient is an 79 year was admitted for acute on CHF exacerbation and acute on chronic renal failure currently being treated and nephrology following closely for renal function. 11/03/2024: Assumed Care Patient reports SOB has improved and she is having adequate urine output. Minimal swelling in the lower extremities. patient did report she has a stuffy over a week now likely allergic rhinitis will resume her home Afrin reports this typically contributes to shortness of breath. Currently on 2L [place] supplemental oxygen patient reports she wears p.r.n. Denies CP, Nausea, vomiting, or dizziness. Review of Systems Review of Systems: All systems reviewed & are unremarkable except as noted in HPI and below Exam Narrative: * GENERAL: Alert and oriented x 3. No acute distress. * EYES: EOMI. No scleral icterus. PERRLA. * HEENT: Moist mucous membranes. * LUNGS: Diminished auscultation bilaterally mild crackles at bases. No accessory muscle use. on 2L [place] supplemental oxygen * CARDIOVASCULAR: Regular rate and rhythm. No JVD. S1-S2 * ABDOMEN: Soft, non tenderness and non-distended. No palpable masses. * EXTREMITIES: No edema. Non-tender * SKIN: No rashes or lesions. Skin warm, dry. * NEUROLOGIC: No focal neurological deficits. CN II-XII grossly intact * PSYCHIATRIC: Appropriate mood and affect. Good judgement and insight. Objective Data Vital Signs Vital Signs: Vital Signs - 24 hr 11/02/24 16:00 11/02/24 16:02 11/02/24 17:06 Temperature 98.0 F Pulse Rate 66 69 Respiratory Rate 18 Blood Pressure 152/62 H Pulse Oximetry 95 94 Oxygen Delivery Nasal Cannula Oxygen Flow Rate 2 11/02/24 20:00 11/02/24 20:00 11/02/24 21:02 Temperature Pulse Rate 69 72 Respiratory Rate Blood Pressure Pulse Oximetry 93 Oxygen Delivery Nasal Cannula Oxygen Flow Rate 2 11/02/24 22:30 11/03/24 00:00 11/03/24 04:00 Temperature 98.6 F Pulse Rate 75 72 70 Respiratory Rate 16 Blood Pressure 172/69 H Pulse Oximetry 92 Oxygen Delivery Oxygen Flow Rate 11/03/24 07:17 11/03/24 09:53 11/03/24 09:56 Temperature 98.0 F Pulse Rate 71 72 Respiratory Rate 16 Blood Pressure 147/65 H Pulse Oximetry 95 94 Oxygen Delivery Nasal Cannula Oxygen Flow Rate 2 11/03/24 10:18 11/03/24 10:18 11/03/24 12:00 Temperature Pulse Rate 74 76 Respiratory Rate Blood Pressure Pulse Oximetry 96 Oxygen Delivery Nasal Cannula Oxygen Flow Rate 2 11/03/24 13:57 Temperature 97.7 F Pulse Rate 79 Respiratory Rate 18 Blood Pressure 142/66 H Pulse Oximetry 94 Oxygen Delivery Oxygen Flow Rate Intake/Output Intake/Output: Intake & Output 10/31/24 11/01/24 11/02/24 11/03/24 23:59 23:59 23:59 23:59 Intake Total 480 490 Output Total 100 600 Balance 380 -110 Meds/Results Medications: Active Medications Generic Name Dose Route Start Last Admin Trade Name Freq PRN Reason Stop Dose Admin Acetaminophen 650 mg 11/02/24 12:45 Acetaminophen 325 Mg Tablet PO Q4H PRN Mild Pain (1-3) or Fever Hydrocodone Bitart/Acetaminophen 1 tab 11/02/24 12:45 Hydrocodone/Acetaminophen (*Crx) 5-325 Mg Tablet PO Q4H PRN Pain Rated 4-6 Carvedilol 12.5 mg 11/02/24 21:00 11/03/24 09:53 Carvedilol 12.5 Mg Tablet PO 12.5 mg Q12HR SUKUMAR Administration Cyanocobalamin 250 mcg 11/03/24 09:00 11/03/24 09:54 Cyanocobalamin 250 Mcg Tablet PO 250 mcg QAM SUKUMAR Administration Cyclosporine 1 drop 11/03/24 09:00 11/03/24 09:59 Cyclosporine 0.4 Ml Ophth Solution EACH EYE 1 drop DAILY SUKUMAR Administration Dextrose 12.5 gm 11/02/24 13:01 Dextrose 50% 25 Gm/50 Ml Syringe IV PUSH PRN PRN Hypoglycemia Protocol Diltiazem HCl 240 mg 11/03/24 09:00 11/03/24 09:54 Diltiazem Hcl Cd 240 Mg Cap.24hr PO 240 mg DAILY SUKUMAR Administration Ezetimibe 10 mg 11/03/24 09:00 11/03/24 09:54 Ezetimibe 10 Mg Tablet PO 10 mg DAILY SUKUMAR Administration Ferrous Sulfate 142 mg 11/03/24 08:00 11/03/24 09:53 Ferrous Sulfate Dried 142 Mg Tabcr PO 142 mg Q48H SUKUMAR Administration Furosemide 80 mg 11/03/24 17:00 Furosemide Inj 40 Mg/4 Ml Vial IV PUSH BID SUKUMAR Glucagon 1 mg 11/02/24 13:01 Glucagon For Inj 1 Mg Vial IM PRN PRN Hypoglycemia Protocol Glucose 15 gm 11/02/24 13:01 Glucose Oral Gel 15 Gm Of Glucse In 37.5 Gm Tube PO PRN PRN Hypoglycemia Protocol Hydralazine HCl 25 mg 11/02/24 17:00 11/03/24 09:54 Hydralazine Hcl 25 Mg Tablet PO 25 mg BID SUKUMAR Administration Dextrose 1,000 mls @ 100 mls/hr 11/02/24 13:01 Dextrose 5% 1,000 Ml IVPB PRN PRN Hypoglycemia Protocol Insulin Aspart 2 - 5 units 11/02/24 17:00 11/03/24 12:31 Insulin Aspart (*Bkc) 100 Units/Ml SUB-Q Not Given TIDWM [facility] Protocol Ondansetron HCl 4 mg 11/02/24 12:45 Ondansetron Inj 4 Mg/2 Ml Vial IV PUSH Q4H PRN Nausea Potassium Chloride 20 meq 11/03/24 09:00 11/03/24 09:54 Potassium Chloride 20 Meq Er Tablet PO 20 meq DAILY SUKUMAR Administration Vitamin D 400 units 11/03/24 09:00 11/03/24 09:54 Cholecalciferol 400 Units Tablet (Vit D) PO 400 units DAILY SUKUMAR Administration Radiology Results: ITS Impressions Chest X-Ray 11/02/24 11:46 IMPRESSION: 1. Mild pulmonary edema. 2. Small pleural effusions with worsening on the left. 3. Worsened airspace opacities at left lung base, consistent with atelectasis or less likely pneumonia. 4. Cardiomegaly. Labs Labs: Laboratory Results - last 24 hr 11/02/24 11/03/24 11/03/24 16:57 05:11 08:08 WBC 8.3 RBC 3.48 L Hgb 10.4 L Hct 33.5 L MCV 96.3 MCH 29.9 MCHC 31.0 L RDW 14.2 Plt Count 224 MPV 10.4 Immature Gran % (Auto) 0.2 Neut % (Auto) 64.3 Lymph % (Auto) 14.9 L [place] % (Auto) 8.0 Eos % (Auto) 11.8 H Baso % (Auto) 0.8 Lymph # (Auto) 1.23 [place] # (Auto) 0.7 H Eos # (Auto) 1.0 H Baso # (Auto) 0.1 Abs Immat Gran (auto) 0.02 Absolute Neuts (auto) 5.3 Absolute Nucleated RBC 0.000 Nucleated RBC % 0.0 Sodium 138 Potassium 3.4 Chloride 103 Carbon Dioxide 29 Anion Gap 6 BUN 41 H Creatinine 2.58 H Estim Creat Clear Calc 16 Estimated GFR 18 L Glucose 99 POC Capillary Glucose 123 H 105 Hemoglobin A1c 7.1 H Calcium 8.2 L Total Bilirubin 0.7 AST 17 ALT 6 Alkaline Phosphatase 71 Total Protein 6.0 L Albumin 3.3 L TSH (Reflex) 2.320 Quality VTE Prophylaxis VTE prophylaxis: mechanical ordered and pharmacologic ordered -Patient's previous records reviewed on admission -ER notes reviewed in detail on admission -discussed all findings and current treatment plan with patient/Family/POA -Consultations reviewed for recommendations -Patient's disposition for safe discharge discussed with family preservation caseworker Dictation performed by [employer] direct speech recognition software, therefore sorting and folding supervisor variants and typographical errors may occur. Hospitalist MIPS Advance Care Plan I have confirmed that the patient's Advanced Care Plan is present, code status is documented, or surrogate decision maker is listed in patient medical record.: Yes Medication Reconciliation I have utilized all available resources to obtain, update and review the patients current medications (includes all prescriptions, OTC, herbals, cannabis, and nutritional supplements).: Yes The patient is not eligible for med reconciliation; the patient is in a emergent medical situation where delaying treatment would jeopardize the patients health.: No
[2024-11-03] MEDS: FUROSEMIDE INJ 40 MG/4 ML VIAL 80 MG IV PUSH (16:52)
[2024-11-03] MEDS: OXYMETAZOLINE HCL 0.05% NAS 15 ML BTL (*BKC) 1 SPRAY NASAL (17:45)
[2024-11-03] MEDS: APIXABAN 2.5 MG TABLET PO (21:57)
[2024-11-04] VITALS (11 sets, daily range): BP systolic 123–143; BP diastolic 51–67; PULSE 69–86; RESP 14–18; TEMP 36.5–36.9; O2SAT 94–96
[2024-11-04 05:45] LABS: Hematocrit 34.8 % (37.0-47.0); Hemoglobin 10.9 g/dL (12.0-15.0); Mean Corpuscular HGB Conc 31.3 g/dl (32-36); Mean Corpuscular Hemoglobin 29.9 pg (26-34); Mean Corpuscular Volume 95.6 fl (80-100); Platelet Count Result 244 k/mm3 (150-375); Red Blood Count 3.64 M/mm3 (4.2-5.4); Red Cell Distribution Width 13.8 % (11.5-14.5); White Blood Count 9.2 K/mm3 (4.5-10.0)
[2024-11-04 05:58] LABS: Albumin Level 3.4 g/dL (3.5-5.1); Anion Gap 5 mmol/L (4-12); Blood Urea Nitrogen 48 mg/dL (7-17); Carbon Dioxide 29 mmol/L (22-30); Chloride 100 mmol/L (98-107); Estimated CRCL calculation 13 ml/min; Estimated Glomerular Filt Rate 15; Glucose 123 mg/dL (65-110); Phosphorus 5.3 mg/dL (2.5-4.5); Potassium 3.9 mmol/L (3.4-5.0); Sodium 134 mmol/L (137-145)
--- NOTE | 2024-11-04 09:01 | P.PNIM_ITS ---
Progress Note: A&P Assessment and Plan (1) Acute exacerbation of CHF (congestive heart failure): Qualifiers: Heart failure type: unspecified Qualified Code(s): I50.9 - Heart failure, unspecified Code(s): I50.9 - Heart failure, unspecified Status: Acute Assessment and Plan: * BNP 16858 * most recent echo (02/2024): Normal systolic function, estimated EF 55-60%, normal diastolic function. Moderate pulmonary hypertension. See report for further details. * Follow Echo pending * currently on: Lasix 20 mg daily. Will continue as 40 mg IVP of Lasix daily. * monitor I&Os and daily weights * trend renal function and at TSH w/reflex 11/03/24: * Nephro increased Lasix to 80mg BID x 1 day * Renal stable at baseline * Echo pending 11/04- cr/bun worsen 2.98/48. on lasix 80 mg bid per nephrology: Will increase Lasix to 80 b.i.d. and give 1 dose of metolazone today (2) Acute respiratory failure with hypoxia: Code(s): J96.01 - Acute respiratory failure with hypoxia Status: Acute Assessment and Plan: * CXR showing at mild pulmonary edema and small pleural effusion. Suspect this is secondary to CHF exacerbation. See plan above. * Continue supplemental O2 to maintain O2 sat above 92%, wean as tolerated * Currently wears supplemental oxygen p.r.n. (3) A-fib: Qualifiers: Atrial fibrillation type: persistent (not longstanding) Qualified Code(s): I48.19 - Other persistent atrial fibrillation Code(s): I48.91 - Unspecified atrial fibrillation Status: Chronic Assessment and Plan: * EKG, initial: AFib with aberrant conduction or ventricular premature complexes, rate 95, intraventricular conduction delay. * continue home medications: Diltiazem CD 240 mg daily * Will start patient on eliquis renal dose CHADVASC is 7 (4) Chronic kidney disease, stage 4 (severe): Code(s): N18.4 - Chronic kidney disease, stage 4 (severe) Status: Chronic Assessment and Plan: Acute on chronic renal failure CKD stage 4 * Cr 2.73 close to baseline improved today * nephrology consulted * Avoid nephrotoxic drugs. * Monitor antihypertensive drug therapy. * Avoid NSAIDs. * Routine CMP monitoring GFR. * Monitor electrolytes especially potassium. * Antibiotic doses depending on creatinine clearance. (5) Type 2 diabetes mellitus with diabetic nephropathy, with long-term current use of insulin: Code(s): E11.21 - Type 2 diabetes mellitus with diabetic nephropathy; Z79.4 - residential (current) use of insulin Status: Chronic Assessment and Plan: * Diet controlled does not take any medications at home * Patient requested no fingersticks of SSI (6) HTN (hypertension): Qualifiers: Hypertension type: unspecified Qualified Code(s): I10 - Essential (primary) hypertension Code(s): I10 - Essential (primary) hypertension Status: Chronic Assessment and Plan: * chronic, currently 143/67 * continue home medications: Coreg 12.5 mg b.i.d., hydralazine 25 mg b.i.d., Cardizem * monitor closely after lasix increased Plan Code status: Full code per patient DVT prophylaxis: Eliquis Stress ulcer prophylaxis: NA PT/OT notes: PT/OT pending Disposition: Patient continues admission to the medical unit for CHF exacerbation will continue with high-dose IV diuresis is also being followed by Nephrology for CKD 3 2 monitor renal function closely during diuresis. nabila dsouza is from [place] in plan will be to discharge back to [place] when medically stable, PT/ OT pending for further recommendation. Time Spent With Patient Time with patient: 25 - 35 minutes Subjective Date/time seen: 11/04/24 09:01 Interval history: patient is an 79 year was admitted for acute on CHF exacerbation and acute on chronic renal failure currently being treated and nephrology following closely for renal function. 11/03/2024: Patient reports SOB has improved and she is having adequate urine output. Minimal swelling in the lower extremities. patient did report she has a stuffy over a week now likely allergic rhinitis will resume her home Afrin reports this typically contributes to shortness of breath. Currently on 2L NC supplemental oxygen patient reports she wears p.r.n. Denies CP, Nausea, vomiting, or dizziness. 11/04 assuming care. pt is seen and examined. she is calm and comfortable, no leg swelling. Review of Systems Review of Systems: All systems reviewed & are unremarkable except as noted in HPI and below Exam Narrative: * GENERAL: Alert and oriented x 3. No acute distress. * EYES: EOMI. No scleral icterus. PERRLA. * HEENT: Moist mucous membranes. * LUNGS: Diminished auscultation bilaterally mild crackles at bases. No accessory muscle use. on 2L NC supplemental oxygen * CARDIOVASCULAR: Regular rate and rhythm. No JVD. S1-S2 * ABDOMEN: Soft, non tenderness and non-distended. No palpable masses. * EXTREMITIES: No edema. Non-tender * SKIN: No rashes or lesions. Skin warm, dry. * NEUROLOGIC: No focal neurological deficits. CN II-XII grossly intact * PSYCHIATRIC: Appropriate mood and affect. Good judgement and insight. Const: General: comfortable and no acute distress Other: , female, elderly, frail HENMT: Face/Nose/Sinus: Normal nares present Mouth: Yes moist mucous membranes Eyes: General: appearance normal, both eyes and all related structures Sclera: sclerae normal Pupils: Equal, round and reactive pupils present EOM: EOMs intact bilaterally Resp: Effort & Inspection: normal respiratory effort Other: Faint wheeze in left upper lung field, clear on right. Cardio: Rate: regular rate Rhythm: abnormal rhythm Other: S1-S2 present without murmur, rub, ectopy GI: Other: Abdomen soft, nondistended, nontender. Normoactive bowel sounds in all quadrants. Skin: General skin exam: normal color and no rashes or lesions noted Wounds: no wounds Neuro: Cranial nerves: Yes Equal, round and reactive pupils present Speech: normal speech Motor exam (neuro): 5/5 motor strength present throughout Sensory Exam: normal sensation Other: A&O x4 Extrem: General: normal to inspection Psych: Mental Status: mental status grossly normal Affect: normal affect Other: Good insight and judgment, pleasant Objective Data Vital Signs Vital Signs: Vital Signs - 24 hr 11/03/24 09:53 11/03/24 09:56 11/03/24 10:18 Temperature Pulse Rate 72 Respiratory Rate Blood Pressure Pulse Oximetry 94 96 Oxygen Delivery Nasal Cannula Nasal Cannula Oxygen Flow Rate 2 2 11/03/24 10:18 11/03/24 12:00 11/03/24 13:57 Temperature 97.7 F Pulse Rate 74 76 79 Respiratory Rate 18 Blood Pressure 142/66 H Pulse Oximetry 94 Oxygen Delivery Oxygen Flow Rate 11/03/24 16:00 11/03/24 20:00 11/03/24 20:00 Temperature Pulse Rate 65 71 Respiratory Rate Blood Pressure Pulse Oximetry 95 Oxygen Delivery Nasal Cannula Oxygen Flow Rate 2 11/03/24 21:23 11/03/24 21:57 11/04/24 00:00 Temperature 98.2 F Pulse Rate 86 86 80 Respiratory Rate 16 Blood Pressure 133/70 Pulse Oximetry 95 Oxygen Delivery Oxygen Flow Rate 11/04/24 04:00 11/04/24 05:39 Temperature 97.7 F Pulse Rate 73 84 Respiratory Rate 18 Blood Pressure 143/67 H Pulse Oximetry 95 Oxygen Delivery Oxygen Flow Rate Intake/Output Intake/Output: Intake & Output 11/01/24 11/02/24 11/03/24 11/04/24 23:59 23:59 23:59 23:59 Intake Total 480 730 350 Output Total 100 1200 400 Balance 380 -470 -50 Meds/Results Medications: Active Medications Generic Name Dose Route Start Last Admin Trade Name Freq PRN Reason Stop Dose Admin Acetaminophen 650 mg 11/02/24 12:45 Acetaminophen 325 Mg Tablet PO Q4H PRN Mild Pain (1-3) or Fever Hydrocodone Bitart/Acetaminophen 1 tab 11/02/24 12:45 Hydrocodone/Acetaminophen (*Crx) 5-325 Mg Tablet PO Q4H PRN Pain Rated 4-6 Apixaban 2.5 mg 11/03/24 21:00 11/03/24 21:57 Apixaban 2.5 Mg Tablet PO 2.5 mg Q12HR SUKUMAR Administration Carvedilol 12.5 mg 11/02/24 21:00 11/03/24 21:57 Carvedilol 12.5 Mg Tablet PO 12.5 mg Q12HR SUKUMAR Administration Cyanocobalamin 250 mcg 11/03/24 09:00 11/03/24 09:54 Cyanocobalamin 250 Mcg Tablet PO 250 mcg QAM SUKUMAR Administration Cyclosporine 1 drop 11/03/24 09:00 11/03/24 09:59 Cyclosporine 0.4 Ml Ophth Solution EACH EYE 1 drop DAILY SUKUMAR Administration Diltiazem HCl 240 mg 11/03/24 09:00 11/03/24 09:54 Diltiazem Hcl Cd 240 Mg Cap.24hr PO 240 mg DAILY SUKUMAR Administration Ezetimibe 10 mg 11/03/24 09:00 11/03/24 09:54 Ezetimibe 10 Mg Tablet PO 10 mg DAILY SUKUMAR Administration Ferrous Sulfate 142 mg 11/03/24 08:00 11/03/24 09:53 Ferrous Sulfate Dried 142 Mg Tabcr PO 142 mg Q48H SUKUMAR Administration Furosemide 80 mg 11/03/24 17:00 11/03/24 16:52 Furosemide Inj 40 Mg/4 Ml Vial IV PUSH 80 mg BID SUKUMAR Administration Hydralazine HCl 25 mg 11/02/24 17:00 11/03/24 16:52 Hydralazine Hcl 25 Mg Tablet PO 25 mg BID SUKUMAR Administration Ondansetron HCl 4 mg 11/02/24 12:45 Ondansetron Inj 4 Mg/2 Ml Vial IV PUSH Q4H PRN Nausea Oxymetazoline HCl 1 spray 11/03/24 15:07 11/03/24 17:45 Oxymetazoline Hcl 0.05% Maurice 15 Ml Btl (*Bkc) NASAL 1 spray Q12HR PRN Administration Congestion Potassium Chloride 20 meq 11/03/24 09:00 11/03/24 09:54 Potassium Chloride 20 Meq Er Tablet PO 20 meq DAILY SUKUMAR Administration Vitamin D 400 units 11/03/24 09:00 11/03/24 09:54 Cholecalciferol 400 Units Tablet (Vit D) PO 400 units DAILY SUKUMAR Administration Radiology Results: ITS Impressions Chest X-Ray 11/02/24 11:46 IMPRESSION: 1. Mild pulmonary edema. 2. Small pleural effusions with worsening on the left. 3. Worsened airspace opacities at left lung base, consistent with atelectasis or less likely pneumonia. 4. Cardiomegaly. Labs Labs: Laboratory Results - last 24 hr 11/04/24 05:35 WBC 9.2 RBC 3.64 L Hgb 10.9 L Hct 34.8 L MCV 95.6 MCH 29.9 MCHC 31.3 L RDW 13.8 Plt Count 244 MPV 10.0 Sodium 134 L Potassium 3.9 Chloride 100 Carbon Dioxide 29 Anion Gap 5 BUN 48 H Creatinine 2.98 H Estim Creat Clear Calc 13 Estimated GFR 15 L Glucose 123 H Calcium 8.0 L Phosphorus 5.3 H Albumin 3.4 L Quality VTE Prophylaxis VTE prophylaxis: mechanical ordered and pharmacologic ordered
[2024-11-04] MEDS: EZETIMIBE 10 MG TABLET PO (09:12)
[2024-11-04] MEDS: CHOLECALCIFEROL 400 UNITS TABLET (VIT D) PO (09:12)
[2024-11-04] MEDS: dilTIAZem HCL CD 240 MG CAP.24HR PO (09:12)
[2024-11-04] MEDS: POTASSIUM CHLORIDE 20 MEQ ER TABLET PO (09:12)
[2024-11-04] MEDS: carvediloL 12.5 MG TABLET PO ×2 (09:12→21:44)
[2024-11-04] MEDS: cycloSPORINE 0.4 ML OPHTH SOLUTION 1 DROP EACH EYE (09:13)
[2024-11-04] MEDS: CYANOCOBALAMIN 250 MCG TABLET PO (09:13)
[2024-11-04] MEDS: FUROSEMIDE INJ 40 MG/4 ML VIAL 80 MG IV PUSH ×2 (09:13→17:34)
[2024-11-04] MEDS: hydrALAZINE HCL 25 MG TABLET PO ×2 (09:13→17:34)
--- NOTE | 2024-11-04 11:03 | P.PNNP_ITS ---
Progress Note: A&P Assessment and Plan (1) Chronic kidney disease, stage 4 (severe): Code(s): N18.4 - Chronic kidney disease, stage 4 (severe) Status: Chronic Assessment and Plan: * baseline creatinine runs ~ 2.6 - 3.2mg/dl in the last couple of years * evidence of CKD as far back as 2020 if not longer * due to hypertension, diabetes, vascular disease, and age-related change * Creatinine Is a little higher today. * I think that her stable creatinine is misrepresentative. Most likely the fluid overload is diluting her creatinine and so when we get fluid off her creatinine rises. Most likely in order to be out of heart failure she will need a higher creatinine. I discussed this with her at length. I told her that hopefully the creatinine will rise much more as we diurese; however, if it does we would need to do dialysis. The patient does not want to do dialysis ever even if it is life-saving. I live alone and I do not think I could do that . I told her we will continue to try with medications for now and hopefully this will not be a decision she has to make. (2) Acute exacerbation of CHF (congestive heart failure): Qualifiers: Heart failure type: unspecified Qualified Code(s): I50.9 - Heart failure, unspecified Code(s): I50.9 - Heart failure, unspecified Status: Acute Assessment and Plan: * volume overload. * admission CXR with pulmonary edema * [place] [address] in [place] * last Echo noted (February 2024): * left ventricular systolic function is normal, estimated at 55-60% * right ventricular systolic function is normal * moderate pulmonary hypertension, estimated pulmonary arterial systolic pressure is 62 mmHg. * mild to moderate tricuspid valve regurgitation. * mild to moderate mitral valve regurgitation. * Urine output Still was not very good overnight but she urinated a lot that was not collected so hopefully it is better than documented. * She feels better but she still is requiring some oxygen. * Will continue Lasix 80 b.i.d. and see how she looks tomorrow.\ * Will repeat a chest x-ray today since it has been a couple a day (3) A-fib: Qualifiers: Atrial fibrillation type: persistent (not longstanding) Qualified Code(s): I48.19 - Other persistent atrial fibrillation Code(s): I48.91 - Unspecified atrial fibrillation Status: Chronic Assessment and Plan: * HR is good (4) HTN (hypertension): Qualifiers: Hypertension type: unspecified Qualified Code(s): I10 - Essential (primary) hypertension Code(s): I10 - Essential (primary) hypertension Status: Chronic Assessment and Plan: * systolic has improved to the 140s. * recheck tomorrow after on more lasix. * may improve further with diuresis * follow trend of hemodynamics (5) Type 2 diabetes mellitus with diabetic nephropathy, with long-term current use of insulin: Code(s): E11.21 - Type 2 diabetes mellitus with diabetic nephropathy; Z79.4 - intermediate designer (current) use of insulin Status: Chronic Assessment and Plan: * follow accu-cheks * glycemic control per hospitalist Subjective Date/time seen: 11/04/24 11:03 Interval history: patient is feeling a little better. She has a pure Wick yesterday she went to the bathroom for a bowel movement and urinated a whole lot of urine Exam Narrative: WDWN in NAD skin no rash head ncat lungs few crackles at both bases cor irreg irreg no rub abd BS+ nontender and soft ext 1+bilat edema. Objective Data Vital Signs Vital Signs: Vital Signs - 24 hr 11/03/24 12:00 11/03/24 13:57 11/03/24 16:00 Temperature 97.7 F Pulse Rate 76 79 65 Respiratory Rate 18 Blood Pressure 142/66 H Pulse Oximetry 94 Oxygen Delivery Oxygen Flow Rate 11/03/24 20:00 11/03/24 20:00 11/03/24 21:23 Temperature 98.2 F Pulse Rate 71 86 Respiratory Rate 16 Blood Pressure 133/70 Pulse Oximetry 95 95 Oxygen Delivery Nasal Cannula Oxygen Flow Rate 2 11/03/24 21:57 11/04/24 00:00 11/04/24 04:00 Temperature Pulse Rate 86 80 73 Respiratory Rate Blood Pressure Pulse Oximetry Oxygen Delivery Oxygen Flow Rate 11/04/24 05:39 11/04/24 08:00 11/04/24 08:00 Temperature 97.7 F Pulse Rate 84 74 86 Respiratory Rate 18 18 Blood Pressure 143/67 H Pulse Oximetry 95 96 Oxygen Delivery Nasal Cannula Oxygen Flow Rate 2 11/04/24 09:12 Temperature Pulse Rate 80 Respiratory Rate Blood Pressure Pulse Oximetry Oxygen Delivery Oxygen Flow Rate Intake/Output Intake/Output: Intake & Output 11/01/24 11/02/24 11/03/24 11/04/24 23:59 23:59 23:59 23:59 Intake Total 480 730 590 Output Total 100 1200 400 Balance 380 -470 190 Meds/Results Medications: Active Medications Generic Name Dose Route Start Last Admin Trade Name Freq PRN Reason Stop Dose Admin Acetaminophen 650 mg 11/02/24 12:45 Acetaminophen 325 Mg Tablet PO Q4H PRN Mild Pain (1-3) or Fever Hydrocodone Bitart/Acetaminophen 1 tab 11/02/24 12:45 Hydrocodone/Acetaminophen (*Crx) 5-325 Mg Tablet PO Q4H PRN Pain Rated 4-6 Apixaban 2.5 mg 11/03/24 21:00 11/03/24 21:57 Apixaban 2.5 Mg Tablet PO 2.5 mg Q12HR SUKUMAR Administration Carvedilol 12.5 mg 11/02/24 21:00 11/04/24 09:12 Carvedilol 12.5 Mg Tablet PO 12.5 mg Q12HR SUKUMAR Administration Cyanocobalamin 250 mcg 11/03/24 09:00 11/04/24 09:13 Cyanocobalamin 250 Mcg Tablet PO 250 mcg QAM SUKUMAR Administration Cyclosporine 1 drop 11/03/24 09:00 11/04/24 09:13 Cyclosporine 0.4 Ml Ophth Solution EACH EYE 1 drop DAILY SUKUMAR Administration Diltiazem HCl 240 mg 11/03/24 09:00 11/04/24 09:12 Diltiazem Hcl Cd 240 Mg Cap.24hr PO 240 mg DAILY SUKUMAR Administration Ezetimibe 10 mg 11/03/24 09:00 11/04/24 09:12 Ezetimibe 10 Mg Tablet PO 10 mg DAILY SUKUMAR Administration Ferrous Sulfate 142 mg 11/03/24 08:00 11/03/24 09:53 Ferrous Sulfate Dried 142 Mg Tabcr PO 142 mg Q48H SKUUMAR Administration Furosemide 80 mg 11/03/24 17:00 11/04/24 09:13 Furosemide Inj 40 Mg/4 Ml Vial IV PUSH 80 mg BID SUKUMAR Administration Hydralazine HCl 25 mg 11/02/24 17:00 11/04/24 09:13 Hydralazine Hcl 25 Mg Tablet PO 25 mg BID SUKUMAR Administration Ondansetron HCl 4 mg 11/02/24 12:45 Ondansetron Inj 4 Mg/2 Ml Vial IV PUSH Q4H PRN Nausea Oxymetazoline HCl 1 spray 11/03/24 15:07 11/03/24 17:45 Oxymetazoline Hcl 0.05% Maurice 15 Ml Btl (*Bkc) NASAL 1 spray Q12HR PRN Administration Congestion Potassium Chloride 20 meq 11/03/24 09:00 11/04/24 09:12 Potassium Chloride 20 Meq Er Tablet PO 20 meq DAILY SUKUMAR Administration Vitamin D 400 units 11/03/24 09:00 11/04/24 09:12 Cholecalciferol 400 Units Tablet (Vit D) PO 400 units DAILY SUKUMAR Administration Radiology Results: ITS Impressions Chest X-Ray 11/02/24 11:46 IMPRESSION: 1. Mild pulmonary edema. 2. Small pleural effusions with worsening on the left. 3. Worsened airspace opacities at left lung base, consistent with atelectasis or less likely pneumonia. 4. Cardiomegaly. Labs Labs: Laboratory Results - last 24 hr 11/04/24 05:35 WBC 9.2 RBC 3.64 L Hgb 10.9 L Hct 34.8 L MCV 95.6 MCH 29.9 MCHC 31.3 L RDW 13.8 Plt Count 244 MPV 10.0 Sodium 134 L Potassium 3.9 Chloride 100 Carbon Dioxide 29 Anion Gap 5 BUN 48 H Creatinine 2.98 H Estim Creat Clear Calc 13 Estimated GFR 15 L Glucose 123 H Calcium 8.0 L Phosphorus 5.3 H Albumin 3.4 L
[2024-11-05] VITALS (8 sets, daily range): BP systolic 119–132; BP diastolic 50–61; PULSE 66–72; RESP 14–20; TEMP 36.5–36.9; O2SAT 93–96
[2024-11-05 05:17] LABS: Hematocrit 34.4 % (37.0-47.0); Mean Corpuscular Hemoglobin 30.6 pg (26-34); Mean Corpuscular Volume 95.6 fl (80-100); Mean Platelet Volume 10.6 fl (7.4-10.4); Platelet Count Result 243 k/mm3 (150-375); Red Cell Distribution Width 13.5 % (11.5-14.5); White Blood Count 8.5 K/mm3 (4.5-10.0)
[2024-11-05 05:27] LABS: Albumin Level 3.2 g/dL (3.5-5.1); Anion Gap 6 mmol/L (4-12); Blood Urea Nitrogen 58 mg/dL (7-17); Calcium 8.1 mg/dL (8.4-10.2); Carbon Dioxide 33 mmol/L (22-30); Chloride 94 mmol/L (98-107); Estimated CRCL calculation 12 ml/min; Estimated Glomerular Filt Rate 14; Glucose 123 mg/dL (65-110); Phosphorus 5.6 mg/dL (2.5-4.5); Potassium 3.6 mmol/L (3.4-5.0); Sodium 133 mmol/L (137-145)
--- NOTE | 2024-11-05 08:15 | P.PNIM_ITS ---
Progress Note: A&P Assessment and Plan (1) Acute exacerbation of CHF (congestive heart failure): Qualifiers: Heart failure type: unspecified Qualified Code(s): I50.9 - Heart failure, unspecified Code(s): I50.9 - Heart failure, unspecified Status: Acute Assessment and Plan: * BNP 12443 * most recent echo (02/2024): Normal systolic function, estimated EF 55-60%, normal diastolic function. Moderate pulmonary hypertension. See report for further details. * Follow Echo pending * currently on: Lasix 20 mg daily. Will continue as 40 mg IVP of Lasix daily. * monitor I&Os and daily weights * trend renal function and at TSH w/reflex 11/03/24: * Nephro increased Lasix to 80mg BID x 1 day * Renal stable at baseline * Echo pending 11/04- cr/bun worsen 2.98/48. on lasix 80 mg bid per nephrology: Will increase Lasix to 80 b.i.d. and give 1 dose of metolazone today 11/05 lasix decreased to 40 mg bid. nephrology following closely discussion took place about possible dialysis- pt doensot wnat it (2) Acute respiratory failure with hypoxia: Code(s): J96.01 - Acute respiratory failure with hypoxia Status: Acute Assessment and Plan: * CXR showing at mild pulmonary edema and small pleural effusion. Suspect this is secondary to CHF exacerbation. See plan above. * Continue supplemental O2 to maintain O2 sat above 92%, wean as tolerated * Currently wears supplemental oxygen p.r.n. * breathing better (3) A-fib: Qualifiers: Atrial fibrillation type: persistent (not longstanding) Qualified Code(s): I48.19 - Other persistent atrial fibrillation Code(s): I48.91 - Unspecified atrial fibrillation Status: Chronic Assessment and Plan: * EKG, initial: AFib with aberrant conduction or ventricular premature complexes, rate 95, intraventricular conduction delay. * continue home medications: Diltiazem CD 240 mg daily * Will start patient on eliquis renal dose CHADVASC is 7 (4) Chronic kidney disease, stage 4 (severe): Code(s): N18.4 - Chronic kidney disease, stage 4 (severe) Status: Chronic Assessment and Plan: Acute on chronic renal failure CKD stage 4 * Cr 2.73 close to baseline improved today * nephrology consulted * Avoid nephrotoxic drugs. * Monitor antihypertensive drug therapy. * Avoid NSAIDs. * Routine CMP monitoring GFR. * Monitor electrolytes especially potassium. * Antibiotic doses depending on creatinine clearance. * Nephrology following, notes reviewed: * baseline creatinine runs ~ 2.6 - 3.2mg/dl in the last couple of years * evidence of CKD as far back as 2020 if not longer- due to hypertension, diabetes, vascular disease, and age-related change * Creatinine Is a little higher today. * I think that her stable creatinine is misrepresentative. Most likely the fluid overload is diluting her creatinine and so when we get fluid off her creatinine rises. Most likely in order to be out of heart failure she will need a higher creatinine. I discussed this with her at length. I told her that hopefully the creatinine will rise much more as we diurese; however, if it does we would need to do dialysis. The patient does not want to do dialysis ever even if it is life-saving. I live alone and I do not think I could do that . I told her we will continue to try with medications for now and hopefully this will not be a decision she has to make. (5) Type 2 diabetes mellitus with diabetic nephropathy, with long-term current use of insulin: Code(s): E11.21 - Type 2 diabetes mellitus with diabetic nephropathy; Z79.4 - assisted (current) use of insulin Status: Chronic Assessment and Plan: * Diet controlled does not take any medications at home * Patient requested no fingersticks of SSI * BS reviewed- 123 this am (6) HTN (hypertension): Qualifiers: Hypertension type: unspecified Qualified Code(s): I10 - Essential (primary) hypertension Code(s): I10 - Essential (primary) hypertension Status: Chronic Assessment and Plan: * chronic, currently 143/67 * continue home medications: Coreg 12.5 mg b.i.d., hydralazine 25 mg b.i.d., Cardizem * monitor closely after lasix increased Plan Code status: Full code per patient DVT prophylaxis: Rola Stress ulcer prophylaxis: LEONEL PT/OT notes: PT/OT pending Disposition: Patient continues admission to the medical unit for CHF exacerbation will continue with high-dose IV diuresis is also being followed by Nephrology for CKD 3 2 monitor renal function closely during diuresis. patient is from [place] in plan will be to discharge back to [place] when medically stable, PT/ OT pending for further recommendation. Time Spent With Patient Time with patient: 25 - 35 minutes Subjective Date/time seen: 11/05/24 08:15 Interval history: patient is an 79 year was admitted for acute on CHF exacerbation and acute on chronic renal failure currently being treated and nephrology following closely for renal function. 11/03/2024: Patient reports SOB has improved and she is having adequate urine output. Minimal swelling in the lower extremities. patient did report she has a stuffy over a week now likely allergic rhinitis will resume her home Afrin reports this typically contributes to shortness of breath. Currently on 2L NC supplemental oxygen patient reports she wears p.r.n. Denies CP, Nausea, vomiting, or dizziness. 11/04 assuming care. pt is seen and examined. she is calm and comfortable, no leg swelling. 11/05 decreased lasix dose- will monitor overnight and if stable- anticipate discharge back. Pt has a hair kathryn ah her pace so she doesnot want to miss it. pt is doing well otherwise, still is requiring some oxygen Review of Systems Review of Systems: All systems reviewed & are unremarkable except as noted in HPI and below Exam Narrative: * GENERAL: Alert and oriented x 3. No acute distress. * EYES: EOMI. No scleral icterus. PERRLA. * HEENT: Moist mucous membranes. * LUNGS: Diminished auscultation bilaterally mild crackles at bases. No accessory muscle use. on 2L NC supplemental oxygen * CARDIOVASCULAR: Regular rate and rhythm. No JVD. S1-S2 * ABDOMEN: Soft, non tenderness and non-distended. No palpable masses. * EXTREMITIES: No edema. Non-tender * SKIN: No rashes or lesions. Skin warm, dry. * NEUROLOGIC: No focal neurological deficits. CN II-XII grossly intact * PSYCHIATRIC: Appropriate mood and affect. Good judgement and insight. Const: General: comfortable and no acute distress Other: , female, elderly, frail HENMT: Face/Nose/Sinus: Normal nares present Mouth: Yes moist mucous membranes Eyes: General: appearance normal, both eyes and all related structures Sclera: sclerae normal Pupils: Equal, round and reactive pupils present EOM: EOMs intact bilaterally Resp: Effort & Inspection: normal respiratory effort Other: Faint wheeze in left upper lung field, clear on right. Cardio: Rate: regular rate Rhythm: abnormal rhythm Other: S1-S2 present without murmur, rub, ectopy GI: Other: Abdomen soft, nondistended, nontender. Normoactive bowel sounds in all quadrants. Skin: General skin exam: normal color and no rashes or lesions noted Wounds: no wounds Neuro: Cranial nerves: Yes Equal, round and reactive pupils present Speech: normal speech Motor exam (neuro): 5/5 motor strength present throughout Sensory Exam: normal sensation Other: A&O x4 Extrem: General: normal to inspection Psych: Mental Status: mental status grossly normal Affect: normal affect Other: Good insight and judgment, pleasant Objective Data Vital Signs Vital Signs: Vital Signs - 24 hr 11/04/24 09:12 11/04/24 12:00 11/04/24 13:56 Temperature 98.2 F Pulse Rate 80 81 72 Respiratory Rate 16 Blood Pressure 123/51 L Pulse Oximetry 94 Oxygen Delivery Oxygen Flow Rate 11/04/24 16:00 11/04/24 20:00 11/04/24 21:37 Temperature 98.4 F Pulse Rate 69 75 Respiratory Rate 14 Blood Pressure 136/59 L Pulse Oximetry 94 94 Oxygen Delivery Nasal Cannula Oxygen Flow Rate 2 11/04/24 21:44 11/05/24 06:09 Temperature 98.5 F Pulse Rate 80 67 Respiratory Rate 14 Blood Pressure 132/56 L Pulse Oximetry 93 Oxygen Delivery Oxygen Flow Rate Intake/Output Intake/Output: Intake & Output 11/02/24 11/03/24 11/04/24 11/05/24 23:59 23:59 23:59 23:59 Intake Total 992 036 2073 250 Output Total 100 1200 1000 400 Balance 380 -470 70 -150 Meds/Results Medications: Active Medications Generic Name Dose Route Start Last Admin Trade Name Freq PRN Reason Stop Dose Admin Acetaminophen 650 mg 11/02/24 12:45 Acetaminophen 325 Mg Tablet PO Q4H PRN Mild Pain (1-3) or Fever Hydrocodone Bitart/Acetaminophen 1 tab 11/02/24 12:45 Hydrocodone/Acetaminophen (*Crx) 5-325 Mg Tablet PO Q4H PRN Pain Rated 4-6 Apixaban 2.5 mg 11/03/24 21:00 11/04/24 21:47 Apixaban 2.5 Mg Tablet PO Not Given Q12HR [facility] Carvedilol 12.5 mg 11/02/24 21:00 11/04/24 21:44 Carvedilol 12.5 Mg Tablet PO 12.5 mg Q12HR SUKUMAR Administration Cyanocobalamin 250 mcg 11/03/24 09:00 11/04/24 09:13 Cyanocobalamin 250 Mcg Tablet PO 250 mcg QAM SUKUMAR Administration Cyclosporine 1 drop 11/03/24 09:00 11/04/24 09:13 Cyclosporine 0.4 Ml Ophth Solution EACH EYE 1 drop DAILY SUKUMAR Administration Diltiazem HCl 240 mg 11/03/24 09:00 11/04/24 09:12 Diltiazem Hcl Cd 240 Mg Cap.24hr PO 240 mg DAILY SUKUMAR Administration Ezetimibe 10 mg 11/03/24 09:00 11/04/24 09:12 Ezetimibe 10 Mg Tablet PO 10 mg DAILY SUKUMAR Administration Ferrous Sulfate 142 mg 11/03/24 08:00 11/03/24 09:53 Ferrous Sulfate Dried 142 Mg Tabcr PO 142 mg Q48H SUKUMAR Administration Furosemide 40 mg 11/05/24 09:00 Furosemide Inj 40 Mg/4 Ml Vial IV PUSH BID SUKUMAR Hydralazine HCl 25 mg 11/02/24 17:00 11/04/24 17:34 Hydralazine Hcl 25 Mg Tablet PO 25 mg BID SUKUMAR Administration Ondansetron HCl 4 mg 11/02/24 12:45 Ondansetron Inj 4 Mg/2 Ml Vial IV PUSH Q4H PRN Nausea Oxymetazoline HCl 1 spray 11/03/24 15:07 11/03/24 17:45 Oxymetazoline Hcl 0.05% Maurice 15 Ml Btl (*Bkc) NASAL 1 spray Q12HR PRN Administration Congestion Potassium Chloride 20 meq 11/03/24 09:00 11/04/24 09:12 Potassium Chloride 20 Meq Er Tablet PO 20 meq DAILY SUKUMAR Administration Vitamin D 400 units 11/03/24 09:00 11/04/24 09:12 Cholecalciferol 400 Units Tablet (Vit D) PO 400 units DAILY SUKUMAR Administration Labs Labs: Laboratory Results - last 24 hr 11/05/24 04:53 WBC 8.5 RBC 3.60 L Hgb 11.0 L Hct 34.4 L MCV 95.6 MCH 30.6 MCHC 32.0 RDW 13.5 Plt Count 243 MPV 10.6 H Sodium 133 L Potassium 3.6 Chloride 94 L Carbon Dioxide 33 H Anion Gap 6 BUN 58 H D Creatinine 3.28 H Estim Creat Clear Calc 12 Estimated GFR 14 L Glucose 123 H Calcium 8.1 L Phosphorus 5.6 H Albumin 3.2 L Quality VTE Prophylaxis VTE prophylaxis: mechanical ordered and pharmacologic ordered
--- NOTE | 2024-11-05 08:47 | P.PNNP_ITS ---
Progress Note: A&P Assessment and Plan (1) Chronic kidney disease, stage 4 (severe): Code(s): N18.4 - Chronic kidney disease, stage 4 (severe) Status: Chronic Assessment and Plan: * baseline creatinine runs ~ 2.6 - 3.2mg/dl in the last couple of years * evidence of CKD as far back as 2020 if not longer * due to hypertension, diabetes, vascular disease, and age-related change * Creatinine is 3.28 today. This is a little higher. * I still think this is more of a dilution issue rather than worsened renal function. * just the same she is feeling better. Has no swelling. Chest x-ray is still pending and the image will download. * Will cut her diuretics to40mg IV b.i.d. and see how she does. (2) Acute exacerbation of CHF (congestive heart failure): Qualifiers: Heart failure type: unspecified Qualified Code(s): I50.9 - Heart failure, unspecified Code(s): I50.9 - Heart failure, unspecified Status: Acute Assessment and Plan: * volume overload. * admission CXR with pulmonary [place] [address] [place] * last Echo noted (February 2024): * left ventricular systolic function is normal, estimated at 55-60% * right ventricular systolic function is normal * moderate pulmonary hypertension, estimated pulmonary arterial systolic pressure is 62 mmHg. * mild to moderate tricuspid valve regurgitation. * mild to moderate mitral valve regurgitation. * Urine output About 1L yesterday and 400cc overnight. * She feels better but she still is requiring some oxygen. * See how she does tomorrow on reduced diuretics. (3) A-fib: Qualifiers: Atrial fibrillation type: persistent (not longstanding) Qualified Code(s): I48.19 - Other persistent atrial fibrillation Code(s): I48.91 - Unspecified atrial fibrillation Status: Chronic Assessment and Plan: * HR is good (4) HTN (hypertension): Qualifiers: Hypertension type: unspecified Qualified Code(s): I10 - Essential (primary) hypertension Code(s): I10 - Essential (primary) hypertension Status: Chronic Assessment and Plan: * systolic has improved to the 120s to 140s. * continue to slowly remove fluid. (5) Type 2 diabetes mellitus with diabetic nephropathy, with long-term current use of insulin: Code(s): E11.21 - Type 2 diabetes mellitus with diabetic nephropathy; Z79.4 - manager long term care (current) use of insulin Status: Chronic Assessment and Plan: * follow accu-cheks * glycemic control per hospitalist Subjective Date/time seen: 11/05/24 08:47 Interval history: Lilli is feeling better today. She denies any chest pain. Her shortness of breath is better. She never did have much swelling swelling she says Exam Narrative: WDWN in NAD skin no rash head ncat lungs few crackles at both bases cor irreg irreg no rub abd BS+ nontender and soft ext trace at most bilat edema. Objective Data Vital Signs Vital Signs: Vital Signs - 24 hr 11/04/24 09:12 11/04/24 12:00 11/04/24 13:56 Temperature 98.2 F Pulse Rate 80 81 72 Respiratory Rate 16 Blood Pressure 123/51 L Pulse Oximetry 94 Oxygen Delivery Oxygen Flow Rate 11/04/24 16:00 11/04/24 20:00 11/04/24 21:37 Temperature 98.4 F Pulse Rate 69 75 Respiratory Rate 14 Blood Pressure 136/59 L Pulse Oximetry 94 94 Oxygen Delivery Nasal Cannula Oxygen Flow Rate 2 11/04/24 21:44 11/05/24 06:09 11/05/24 08:24 Temperature 98.5 F Pulse Rate 80 67 Respiratory Rate 14 Blood Pressure 132/56 L Pulse Oximetry 93 96 Oxygen Delivery Nasal Cannula Oxygen Flow Rate 1 Intake/Output Intake/Output: Intake & Output 11/02/24 11/03/24 11/04/24 11/05/24 23:59 23:59 23:59 23:59 Intake Total 848 889 6505 250 Output Total 100 1200 1000 400 Balance 380 -470 70 -150 Meds/Results Medications: Active Medications Generic Name Dose Route Start Last Admin Trade Name Freq PRN Reason Stop Dose Admin Acetaminophen 650 mg 11/02/24 12:45 Acetaminophen 325 Mg Tablet PO Q4H PRN Mild Pain (1-3) or Fever Hydrocodone Bitart/Acetaminophen 1 tab 11/02/24 12:45 Hydrocodone/Acetaminophen (*Crx) 5-325 Mg Tablet PO Q4H PRN Pain Rated 4-6 Apixaban 2.5 mg 11/03/24 21:00 11/04/24 21:47 Apixaban 2.5 Mg Tablet PO Not Given Q12HR [facility] Carvedilol 12.5 mg 11/02/24 21:00 11/04/24 21:44 Carvedilol 12.5 Mg Tablet PO 12.5 mg Q12HR SUKUMAR Administration Cyanocobalamin 250 mcg 11/03/24 09:00 11/04/24 09:13 Cyanocobalamin 250 Mcg Tablet PO 250 mcg QAM SUKUMAR Administration Cyclosporine 1 drop 11/03/24 09:00 11/04/24 09:13 Cyclosporine 0.4 Ml Ophth Solution EACH EYE 1 drop DAILY SUKUMAR Administration Diltiazem HCl 240 mg 11/03/24 09:00 11/04/24 09:12 Diltiazem Hcl Cd 240 Mg Cap.24hr PO 240 mg DAILY SUKUMAR Administration Ezetimibe 10 mg 11/03/24 09:00 11/04/24 09:12 Ezetimibe 10 Mg Tablet PO 10 mg DAILY SUKUMAR Administration Ferrous Sulfate 142 mg 11/03/24 08:00 11/03/24 09:53 Ferrous Sulfate Dried 142 Mg Tabcr PO 142 mg Q48H SUKUMAR Administration Furosemide 40 mg 11/05/24 09:00 Furosemide Inj 40 Mg/4 Ml Vial IV PUSH BID SUKUMAR Hydralazine HCl 25 mg 11/02/24 17:00 11/04/24 17:34 Hydralazine Hcl 25 Mg Tablet PO 25 mg BID SUKUMAR Administration Ondansetron HCl 4 mg 11/02/24 12:45 Ondansetron Inj 4 Mg/2 Ml Vial IV PUSH Q4H PRN Nausea Oxymetazoline HCl 1 spray 11/03/24 15:07 11/03/24 17:45 Oxymetazoline Hcl 0.05% Maurice 15 Ml Btl (*Bkc) NASAL 1 spray Q12HR PRN Administration Congestion Potassium Chloride 20 meq 11/03/24 09:00 11/04/24 09:12 Potassium Chloride 20 Meq Er Tablet PO 20 meq DAILY [facility] Administration Vitamin D 400 units 11/03/24 09:00 11/04/24 09:12 Cholecalciferol 400 Units Tablet (Vit D) PO 400 units DAILY SUKUMAR Administration Labs Labs: Laboratory Results - last 24 hr 11/05/24 04:53 WBC 8.5 RBC 3.60 L Hgb 11.0 L Hct 34.4 L MCV 95.6 MCH 30.6 MCHC 32.0 RDW 13.5 Plt Count 243 MPV 10.6 H Sodium 133 L Potassium 3.6 Chloride 94 L Carbon Dioxide 33 H Anion Gap 6 BUN 58 H D Creatinine 3.28 H Estim Creat Clear Calc 12 Estimated GFR 14 L Glucose 123 H Calcium 8.1 L Phosphorus 5.6 H Albumin 3.2 L
[2024-11-05] MEDS: CHOLECALCIFEROL 400 UNITS TABLET (VIT D) PO (09:00)
[2024-11-05] MEDS: EZETIMIBE 10 MG TABLET PO (09:00)
[2024-11-05] MEDS: hydrALAZINE HCL 25 MG TABLET PO ×2 (09:01→17:33)
[2024-11-05] MEDS: dilTIAZem HCL CD 240 MG CAP.24HR PO (09:01)
[2024-11-05] MEDS: cycloSPORINE 0.4 ML OPHTH SOLUTION 1 DROP EACH EYE (09:01)
[2024-11-05] MEDS: POTASSIUM CHLORIDE 20 MEQ ER TABLET PO (09:01)
[2024-11-05] MEDS: FUROSEMIDE INJ 40 MG/4 ML VIAL IV PUSH ×2 (09:01→17:33)
[2024-11-05] MEDS: FERROUS SULFATE DRIED 142 MG TABCR PO (09:01)
[2024-11-05] MEDS: CYANOCOBALAMIN 250 MCG TABLET PO (09:01)
[2024-11-05] MEDS: carvediloL 12.5 MG TABLET PO ×2 (09:02→20:49)
[2024-11-06] VITALS: PULSE 75
[2024-11-06 04:00] VITALS: PULSE 69
[2024-11-06 05:02] VITALS: BP 125/65; PULSE 82; RESP 17; TEMP 36.9; O2SAT 96
[2024-11-06 06:11] LABS: Hematocrit 35.7 % (37.0-47.0); Hemoglobin 11.2 g/dL (12.0-15.0); Mean Corpuscular HGB Conc 31.4 g/dl (32-36); Mean Corpuscular Hemoglobin 30.2 pg (26-34); Mean Corpuscular Volume 96.2 fl (80-100); Mean Platelet Volume 10.5 fl (7.4-10.4); Platelet Count Result 239 k/mm3 (150-375); Red Blood Count 3.71 M/mm3 (4.2-5.4); Red Cell Distribution Width 13.5 % (11.5-14.5); White Blood Count 9.2 K/mm3 (4.5-10.0)
[2024-11-06 06:26] LABS: Albumin Level 3.4 g/dL (3.5-5.1); Anion Gap 12 mmol/L (4-12); Blood Urea Nitrogen 68 mg/dL (7-17); Calcium 7.9 mg/dL (8.4-10.2); Carbon Dioxide 30 mmol/L (22-30); Chloride 92 mmol/L (98-107); Estimated CRCL calculation 12 ml/min; Estimated Glomerular Filt Rate 13; Glucose 114 mg/dL (65-110); Phosphorus 6.7 mg/dL (2.5-4.5); Potassium 3.6 mmol/L (3.4-5.0); Sodium 134 mmol/L (137-145)
[2024-11-06 07:40] VITALS: O2SAT 96
[2024-11-06 08:25] VITALS: PULSE 80; PULSE 82; RESP 17; O2SAT 96
[2024-11-06 08:51] VITALS: PULSE 82
[2024-11-06] MEDS: CHOLECALCIFEROL 400 UNITS TABLET (VIT D) PO (08:51)
[2024-11-06] MEDS: dilTIAZem HCL CD 240 MG CAP.24HR PO (08:51)
[2024-11-06] MEDS: carvediloL 12.5 MG TABLET PO (08:51)
[2024-11-06] MEDS: CYANOCOBALAMIN 250 MCG TABLET PO (08:52)
[2024-11-06] MEDS: EZETIMIBE 10 MG TABLET PO (08:52)
[2024-11-06] MEDS: hydrALAZINE HCL 25 MG TABLET PO (08:52)
[2024-11-06] MEDS: POTASSIUM CHLORIDE 20 MEQ ER TABLET PO (08:52)
[2024-11-06] MEDS: cycloSPORINE 0.4 ML OPHTH SOLUTION 1 DROP EACH EYE (08:54)
--- NOTE | 2024-11-06 09:03 | P.DS_ITS ---
DS: Admitting Diagnosis Discharge Date 11/06 Admitting Diagnosis sob DS: Discharge Diagnosis Discharge Diagnosis (1) Acute exacerbation of CHF (congestive heart failure): Qualifiers: Heart failure type: unspecified Qualified Code(s): I50.9 - Heart failure, unspecified Code(s): I50.9 - Heart failure, unspecified Status: Acute (2) Acute respiratory failure with hypoxia: Code(s): J96.01 - Acute respiratory failure with hypoxia Status: Acute (3) A-fib: Qualifiers: Atrial fibrillation type: persistent (not longstanding) Qualified Code(s): I48.19 - Other persistent atrial fibrillation Code(s): I48.91 - Unspecified atrial fibrillation Status: Chronic (4) Chronic kidney disease, stage 4 (severe): Code(s): N18.4 - Chronic kidney disease, stage 4 (severe) Status: Chronic (5) Type 2 diabetes mellitus with diabetic nephropathy, with long-term current use of insulin: Code(s): E11.21 - Type 2 diabetes mellitus with diabetic nephropathy; Z79.4 - nursing home (current) use of insulin Status: Chronic (6) HTN (hypertension): Qualifiers: Hypertension type: unspecified Qualified Code(s): I10 - Essential (primary) hypertension Code(s): I10 - Essential (primary) hypertension Status: Chronic DS: Summary Hospital Course Hospital Course: Patient is an 79 year was admitted for acute on CHF exacerbation and acute on chronic renal failure currently being treated and nephrology following closely for renal function. Several issues were addressed: # CKD stage 4 * baseline creatinine runs ~ 2.6 - 3.2mg/dl in the last couple of years * evidence of CKD as far back as 2020 or longer * due to hypertension, diabetes, vascular disease, and age-related change * Creatinine is 3.28 today. This is a little higher- lasix was decreased to 40 mg bid * could be more due to a dilution issue rather than worsened renal function. * she is feeling better- she is not interested in HD. Has no swelling. Repeat chest xray : Mild pulmonary vascular congestion with a left-sided pleural effusion, minimally decreased from previous examination. * Will cut her diuretics to40mg IV b.i.d. on 11/05 * discussed with DR Kadi moya to discharge but with a close f/u * we will continue 40 mg daily lasix # afib * EKG, initial: AFib with aberrant conduction or ventricular premature complexes, rate 95, intraventricular conduction delay. * continue home medications: Diltiazem CD 240 mg daily * Will start patient on eliquis renal dose CHADVASC is 7 # acute resp failure * CXR showing at mild pulmonary edema and small pleural effusion. Suspect this is secondary to CHF exacerbation. See plan above. * Continue supplemental O2 to maintain O2 sat above 92%, wean as tolerated * Currently wears supplemental oxygen p.r.n. * breathing better # T2dm bs had been stable # HTN * chronic * continue home medications: Coreg 12.5 mg b.i.d., hydralazine 25 mg b.i.d., Cardizem * no med changes Status at Discharge Functional status at discharge: uses cane/walker Overall status at discharge: patient is progressing back to baseline Time Spent with Patient Time attestation: Total time spent providing and/or coordinating discharge services: Time spent: Greater than 30 minutes Exam Narrative: * GENERAL: Alert and oriented x 3. No acute distress. * EYES: EOMI. No scleral icterus. PERRLA. * HEENT: Moist mucous membranes. * LUNGS: Diminished auscultation bilaterally mild crackles at bases. No accessory muscle use. on 2L NC supplemental oxygen * CARDIOVASCULAR: Regular rate and rhythm. No JVD. S1-S2 * ABDOMEN: Soft, non tenderness and non-distended. No palpable masses. * EXTREMITIES: No edema. Non-tender * SKIN: No rashes or lesions. Skin warm, dry. * NEUROLOGIC: No focal neurological deficits. CN II-XII grossly intact * PSYCHIATRIC: Appropriate mood and affect. Good judgement and insight. Const: General: comfortable and no acute distress Other: , female, elderly, frail HENMT: Face/Nose/Sinus: Normal nares present Mouth: Yes moist mucous membranes Eyes: General: appearance normal, both eyes and all related structures Sclera: sclerae normal Pupils: Equal, round and reactive pupils present EO M: EOMs intact bilaterally Resp: Effort & Inspection: normal respiratory effort Other: Faint wheeze in left upper lung field, clear on right. Cardio: Rate: regular rate Rhythm: abnormal rhythm Other: S1-S2 present without murmur, rub, ectopy GI: Other: Abdomen soft, nondistended, nontender. Normoactive bowel sounds in all quadrants. Skin: General skin exam: normal color and no rashes or lesions noted Wounds: no wounds Neuro: Cranial nerves: Yes Equal, round and reactive pupils present Speech: normal speech Motor exam (neuro): 5/5 motor strength present throughout Sensory Exam: normal sensation Other: A&O x4 Extrem: General: normal to inspection Psych: Mental Status: mental status grossly normal Affect: normal affect Other: Good insight and judgment, pleasant DS: Data Data Completed and Pending Completed studies during hospitalization: chest ray Labs on day of discharge: Labs from last 24 hours 11/06/24 05:55 WBC 9.2 RBC 3.71 L Hgb 11.2 L Hct 35.7 L MCV 96.2 MCH 30.2 MCHC 31.4 L RDW 13.5 Plt Count 239 MPV 10.5 H Sodium 134 L Potassium 3.6 Chloride 92 L Carbon Dioxide 30 Anion Gap 12 BUN 68 H D Creatinine 3.38 H Estim Creat Clear Calc 12 Estimated GFR 13 L Glucose 114 H Calcium 7.9 L Phosphorus 6.7 H Albumin 3.4 L Discharge Plan Discharge Attending physician on discharge: Navid Oden Consulting providers: Annia Alvarado Discharging Clinician: Hillary Frederick Patient Disposition: NH [facility]/Asst Living Activity: february shower Diet: as tolerated, heart healthy, diabetic and renal Patient Instructions: Antibiotic Form, Heart Failure (GEN), Safe Use of Anticoagulants (DC) Patient Language: Mosotho Stand Alone Forms: General Discharge Information Discharge Medications: New furosemide 40 mg Tablet 40 mg PO DAILY Qty: 90 0RF Continued carvedilol 12.5 mg tablet 12.5 mg PO Q12H potassium chloride [Klor-Con M20] 20 mEq tablet,ER particles/crystals 20 meq PO DAILY Patient Comments: every other day Rx Instructions: does 20mEq every other day Restasis MultiDose 0.05 % drops 1 drop EACH EYE DAILY ezetimibe 10 mg tablet 10 mg PO DAILY Qty: 90 3RF hydralazine 25 mg tablet 25 mg PO BID Qty: 180 1RF cholecalciferol (vitamin D3) 10 mcg (400 unit) capsule 10 mcg PO DAILY acetaminophen [Tylenol Extra Strength] 500 mg tablet 500 mg PO Q6H PRN (Reason: pain) diltiazem HCl 240 mg capsule,extended release 24hr 240 mg PO DAILY Qty: 30 0RF ferrous sulfate 27 mg iron Tablet 27 mg PO USEASDIRECTD Rx Instructions: takes every other day Vitamin B-12 50 mcg tablet 100 mcg PO DAILY (DME) FreeStyle Test Strip See Rx Instructions .Route Qty: 100 3RF Rx Instructions: test qam fasting (DME) lancets [FreeStyle Lancets] 28 gauge misc See Rx Instructions .Route Qty: 100 3RF Rx Instructions: test qam fasting Discontinued furosemide 40 mg Tablet 40 mg PO TuFr@0900 Qty: 10 0RF furosemide 20 mg Tablet 20 mg PO SuMoWeThSa@0900 Qty: 20 0RF Other Ambulatory Orders: Basic Metabolic Panel (Routine) Timeframe: 1 Week Location: Determined by Patient Ordered By: Hillary Frederick Date of admission: 11/04/24 14:47 Primary Care Provider: Quinten Whitlock Admitting Provider: Navid Oden Attending physician on admission: Debbie Joy Condition: Stable Quality VTE Prophylaxis VTE prophylaxis: mechanical ordered and pharmacologic ordered Hospitalist MIPS Heart Failure (Exclusion) Patient has history of Heart Transplant or Left Ventricular Assistive Device?: No IF YES, STOP HERE Heart Failure (Qualifier) Patient has current or prior documentation of LVEF less than or equal to 40%, or mod/servere depressed LVSF?: No IF NO, STOP HERE
[2024-11-06] MEDS: FUROSEMIDE 40 MG TABLET PO (10:15)
== END 2024-11-06 11:10 | DRG 291 ==
LOC: ANHED 10:46 → ANH3MEDSUR 14:47 → ANH2MED 15:29
PROVIDERS: Internal Medicine Nephrology; Student in an Organized Health Care Education/Training Program; Admitting Provider Hospitalist; Emergency Provider Emergency Medicine; PCP Family Medicine; Visit Provider Nurse Practitioner
DX: I13.0 Hypertensive heart and chronic kidney disease with heart failure and stage 1 through stage 4 chronic kidney disease, or unspecified chronic kidney disease (principal); I50.33 Acute on chronic diastolic (congestive) heart failure; J96.01 Acute respiratory failure with hypoxia; N18.4 Chronic kidney disease, stage 4 (severe); N17.9 Acute kidney failure, unspecified; I48.19 Other persistent atrial fibrillation; D63.1 Anemia in chronic kidney disease; E11.22 Type 2 diabetes mellitus with diabetic chronic kidney disease; E78.5 Hyperlipidemia, unspecified; I25.10 Atherosclerotic heart disease of native coronary artery without angina pectoris; I25.2 Old myocardial infarction; J44.9 Chronic obstructive pulmonary disease, unspecified; Z20.822 Contact with and (suspected) exposure to COVID-19; Z79.4 Long term (current) use of insulin; Z87.891 Personal history of nicotine dependence
CPT/HCPCS: 36415; 71045; 71046; 80053; 80069; 81001; 82948; 83036; 83880; 84443; 85025; 85027; 85610; 85730; 87637; 93005; 94640; 96374; 96375; 96376; 97161; 97165; 99285; A9270; C8929; G0378; J1940; Q9957

== ENCOUNTER 2024-11-30 07:51 | Inpatient (IN) | payer MEDICARE, SELFPAY ==
[2024-11-30] VITALS (37 sets, daily range): BP systolic 147–190; BP diastolic 62–108; PULSE 77–111; RESP 16–38; TEMP 36.2–36.7; O2SAT 89–98; BMI 23.1
--- NOTE | ~2024-11-30 | XR_ITS ---
Portable chest x-ray Comparison: 11/05/2024 Clinical History: Dyspnea Findings: Small left pleural effusion probably present. Questionable minimal right pleural effusion. Probable COPD. Cardiomediastinal silhouette is stable. Bones and soft tissues are unremarkable. Impression: COPD. Small left pleural effusion and possible minimal right pleural effusion. Reviewed, dictated and finalized at [facility]. NESS RN Impression: COPD. Small left pleural effusion and possible minimal right pleural effusion.
--- NOTE | 2024-11-30 07:54 | ECG_ITS ---
Test Date: 2024-11-30 07:57:55 Measurements Intervals [place] Rate: 94 P: 0 CA: 0 QRS: -34 QRSD: 145 T: 95 QT: 389 QTc: 489 Interpretive Statements ATRIAL FIBRILLATION LEFT AXIS DEVIATION LEFT BUNDLE BRANCH BLOCK BASELINE ARTIFACT- I, II, III, AVR, AVL, AVF, V1-V3 ABNORMAL ECG Compared to ECG 11/02/2024 10:18:32 NO SIGNIFICANT CHANGE Electronically Signed On 11-30-2024 08:02:22 SERVICE STATION OPERATOR by Clyde Rowell D.O.
[2024-11-30 08:13] LABS: Basophils Absolute Auto 0.1 K/mm3 (0.0-0.1); Basophils Percent Auto 0.8 % (0.2-1.2); Eosinophils Absolute Auto 0.7 K/mm3 (0-0.3); Eosinophils Percent Auto 8.3 % (0-4.4); Hematocrit 34.8 % (37.0-47.0); Hemoglobin 10.7 g/dL (12.0-15.0); Immature Granulocyte Absolute 0.02 K/mm3 (0.00-0.031); Immature Granulocyte Percent A 0.2 % (0-0.5); Lymphocytes Absolute Auto 1.27 K/mm3 (0.9-3.2); Lymphocytes Percent Auto 14.3 % (18.3-44.2); Mean Corpuscular HGB Conc 30.7 g/dl (32-36); Mean Corpuscular Hemoglobin 29.6 pg (26-34); Mean Corpuscular Volume 96.1 fl (80-100); Mean Platelet Volume 10.5 fl (7.4-10.4); Monocytes Absolute Auto 0.7 K/mm3 (0.1-0.6); Monocytes Percent Auto 8.2 % (2.6-8.5); Neutrophils Absolute Auto 6.1 K/mm3 (1.3-6.7); Neutrophils Percent Auto 68.2 % (45.5-73.1); Platelet Count Result 212 k/mm3 (150-375); Red Blood Count 3.62 M/mm3 (4.2-5.4); White Blood Count 8.9 K/mm3 (4.5-10.0)
[2024-11-30 08:25] LABS: Alanine Aminotransferase 10 U/L (6-35); Albumin Level 3.9 g/dL (3.5-5.1); Alkaline Phosphatase 79 U/L (38-126); Anion Gap 9 mmol/L (4-12); Aspartate Amino Transferase 14 U/L (14-36); Blood Urea Nitrogen 48 mg/dL (7-17); Carbon Dioxide 27 mmol/L (22-30); Chloride 107 mmol/L (98-107); Estimated CRCL calculation 13 ml/min; Estimated Glomerular Filt Rate 15; Glucose 117 mg/dL (65-110); Magnesium 2.2 mg/dL (1.6-2.3); Potassium 3.8 mmol/L (3.4-5.0); Sodium 143 mmol/L (137-145)
[2024-11-30 08:34] LABS: NT Pro B Type Natriuretic Pept 16900 pg/mL (19.9-100)
[2024-11-30] MEDS: LEVALBUTEROL NEB 1.25 MG/3 ML INHALATION (08:47)
[2024-11-30 08:54] LABS: Influenza A QL RT-PCR Negative (Negative); Influenza B QL RT-PCR Negative (Negative); RSV RNA, RT-PCR Negative (Negative); SARS-CoV-2 RNA PCR Negative (Negative)
[2024-11-30] MEDS: FUROSEMIDE INJ 40 MG/4 ML VIAL IV PUSH (09:56)
--- NOTE | 2024-11-30 10:37 | ED_ITS ---
HPI - SOB/Dyspnea General Chief Complaint: Shortness of Breath/Dyspnea Stated Complaint: SOB Time Seen by Provider: 11/30/24 07:53 History of Present Illness HPI Narrative: Patient presents here with increased shortness of breath and some abdominal distension, which usually happens when she is fluid overloaded. She has been trying to take extra Lasix since her symptoms started yesterday, but she felt more short of breath this morning so came in to the hospital. Related Data Home Medications ?Medication ?Instructions ?Recorded ?Confirmed ?Last Taken ?Type cyclosporine 0.05 % eye drops 1 drop ophthalmic (eye) DAILY 10/24/19 11/30/24 11/29/24 History (Restasis MultiDose) ferrous sulfate 27 mg iron tablet 27 mg PO USEASDIRECTD 12/09/23 11/30/24 03/02/24 History acetaminophen 500 mg tablet 500 mg PO Q6H PRN pain 06/22/24 11/30/24 Unknown History (Tylenol Extra Strength) carvedilol 12.5 mg tablet 12.5 mg PO Q12H 06/22/24 11/30/24 11/29/24 History cholecalciferol (vitamin D3) 10 10 mcg PO DAILY 06/22/24 11/30/24 Unknown History mcg (400 unit) capsule cyanocobalamin (vitamin B-12) 50 100 mcg PO DAILY 06/22/24 11/30/24 Unknown History mcg tablet (Vitamin B-12) potassium chloride 20 mEq 20 meq PO DAILY 06/22/24 11/30/24 11/29/24 History tablet,extended release(part/cryst) (Klor-Con M) Allergies Allergy/AdvReac Type Severity Reaction Status Date / Time amiodarone Allergy Severe Unresponsiv Verified 11/30/24 07:57 e Review of Systems 2 Review of Systems: All systems reviewed & are unremarkable except as noted in HPI and below [facility] Past Medical History Medical History HLD (hyperlipidemia) 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 A-fib Paroxysmal Myocardial infarction Seasonal allergies Hypertensive heart disease with heart failure Surgical History Surgical History Intertrochanteric fracture of right hip ORIF with trochanteric nail September 13, 2023 H/O: hysterectomy H/O cardiac catheterization H/O maze procedure H/O mitral valve repair With a ring Family History Family History Mother Family history of diabetes mellitus in first degree relative Family history of lung cancer Father Family history of coronary artery disease Hypertension Sibling Family history of diabetes mellitus in first degree relative Social History Social History Social History: She has with her for over 50 years. She desires to be full code. She smoked half a pack a cigarettes per day for 40 years quit March 14, 2014. No illicit drug use but does occasionally drink alcohol. 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 She has 2 children and 2 grandchildren. Her has dementia and she nominated her daughter Debbie to be the one to make medical decisions for her if she is unable. Smoking packs per day: 0.5 Smoking cigarettes per day: 10.0 Years smoked: 40 Smoking pack-years: 20.00 Smoking status: Former smoker Second hand tobacco smoke exposure: Yes Additional smoking assessment comments: Occasional smoker for 40 years Alcohol intake: never Drinks per week: 0 Alcohol use details: once a year Substance use: never Substance use type: does not use Do You Feel Safe in your Home?: Yes Lack of Transportation: No Lack of Food: Never True Current Housing: I Have Housing Concerned About Future Housing: No Difficulty Paying Gas/Electric Bills: No Difficulty Paying for Meds: No Currently Unemployed: No Education: Bachelor's Degree Difficulty w/ Childcare or Family Care: No Living arrangements: assisted living Additional living arrangements comments: [place] Occupation/Education: retired Gender identity (if verbalized by the patient): Female Sexual Orientation (if Verbalized by the Patient): Straight or Heterosexual Spiritual care concerns: No Agree to blood products: Yes Exam 2 Narrative: EXAMINATION OF ORGAN SYSTEMS/BODY AREAS: Constitutional: Vital signs per nursing GENERAL: Slight dyspneic HEAD: Normal with no signs of head trauma. EYES: EOMI, conjunctiva normal ENT: Hearing grossly intact LUNGS: Dyspneic, Some crackles. HEART: [Regular rate and rhythm] ABD: [Soft], [nontender to palpation] EXT: Normal range of motion SKIN: [No rashes or lesions.] NEURO: [Alert and oriented x 3. No gross focal sensory or strength deficits.] PSYCH: Normal affect Course Vital Signs Vital signs: Vital Signs Temperature 97.6 F 11/30/24 07:48 Pulse Rate 111 H 11/30/24 07:48 Respiratory Rate 25 H 11/30/24 07:48 Blood Pressure 190/87 H 11/30/24 07:48 Pulse Oximetry 94 11/30/24 07:48 Oxygen Delivery Nasal Cannula 11/30/24 07:48 Oxygen Flow Rate 2 11/30/24 07:48 Temperature 97.6 F 11/30/24 07:48 Pulse Rate 94 11/30/24 08:55 Respiratory Rate 33 H 11/30/24 08:55 Blood Pressure 190/87 H 11/30/24 07:48 Pulse Oximetry 95 11/30/24 08:04 Oxygen Delivery Room Air 11/30/24 08:04 Oxygen Flow Rate 2 11/30/24 07:48 MDM - SOB/Dyspnea MDM Narrative Medical decision making narrative: Patient h/o CHF, pulm htn, presents here with increased shortness of breath and some abdominal distension, which usually happens when she is fluid overloaded. She has been trying to take extra Lasix since her symptoms started yesterday, but she felt more short of breath this morning so came in to the hospital. On exam does have some work of breathing, oxygen low. cardiac workup initiated, does appear to be volume overloaded, will start Lasix and admit her for diuresis. Discussed with hospitalist for admission. Lab Data 11/30/24 08:03 11/30/24 08:03 Labs: Lab Results 11/30/24 Range/Units 08:03 WBC 8.9 (4.5-10.0) K/mm3 RBC 3.62 L (4.2-5.4) M/mm3 Hgb 10.7 L (12.0-15.0) g/dL Hct 34.8 L (37.0-47.0) % MCV 96.1 (80-100) fl MCH 29.6 (26-34) pg MCHC 30.7 L (32-36) g/dl RDW 14.0 (11.5-14.5) % Plt Count 212 (150-375) k/mm3 MPV 10.5 H (7.4-10.4) fl Immature Gran % (Auto) 0.2 (0-0.5) % Neut % (Auto) 68.2 (45.5-73.1) % Lymph % (Auto) 14.3 L (18.3-44.2) % [place] % (Auto) 8.2 (2.6-8.5) % Eos % (Auto) 8.3 H (0-4.4) % Baso % (Auto) 0.8 (0.2-1.2) % Lymph # (Auto) 1.27 (0.9-3.2) K/mm3 [place] # (Auto) 0.7 H (0.1-0.6) K/mm3 Eos # (Auto) 0.7 H (0-0.3) K/mm3 Baso # (Auto) 0.1 (0.0-0.1) K/mm3 Abs Immat Gran (auto) 0.02 (0.00-0.031) K/mm3 Absolute Neuts (auto) 6.1 (1.3-6.7) K/mm3 Absolute Nucleated RBC 0.000 (0.0-0.012) K/mm3 Nucleated RBC % 0.0 (0.0-0.2) % Sodium 143 (137-145) mmol/L Potassium 3.8 (3.4-5.0) mmol/L Chloride 107 (98-107) mmol/L Carbon Dioxide 27 (22-30) mmol/L Anion Gap 9 (4-12) mmol/L BUN 48 H D (7-17) mg/dL Creatinine 3.01 H (0.7-1.0) mg/dL Estim Creat Clear Calc 13 ml/min Estimated GFR 15 L (59 - ) Glucose 117 H (65-110) mg/dL Calcium 9.0 (8.4-10.2) mg/dL Magnesium 2.2 (1.6-2.3) mg/dL Total Bilirubin 1.0 (0.2-1.3) mg/dL AST 14 (14-36) U/L ALT 10 (6-35) U/L Alkaline Phosphatase 79 (38-126) U/L NT-Pro-B Natriuret Pep 55000 H (19.9-100) pg/mL Total Protein 7.0 (6.3-8.2) g/dL Albumin 3.9 (3.5-5.1) g/dL Influenza A (RT-PCR) Negative (Negative) Influenza B (RT-PCR) Negative (Negative) RSV (RT-PCR) Negative (Negative) SARS-CoV-2 RNA (RT-PCR) Negative (Negative) Critical Care Time Critical Care Time Critical Care Time: Yes Total Critical Care Time: 31 Discharge Plan Discharge Clinical Impression: Acute exacerbation of CHF (congestive heart failure), Acute respiratory failure with hypoxia Patient Disposition: Still a Patient Condition: Stable Patient Language: Swazi Prescriptions: No Action carvedilol 12.5 mg tablet 12.5 mg PO Q12H potassium chloride [Klor-Con M20] 20 mEq tablet,ER particles/crystals 20 meq PO DAILY Patient Comments: every other day Rx Instructions: does 20mEq every other day Restasis MultiDose 0.05 % drops 1 drop EACH EYE DAILY ezetimibe 10 mg tablet 10 mg PO DAILY Qty: 90 3RF cholecalciferol (vitamin D3) 10 mcg (400 unit) capsule 10 mcg PO DAILY acetaminophen [Tylenol Extra Strength] 500 mg tablet 500 mg PO Q6H PRN (Reason: pain) diltiazem HCl 240 mg capsule,extended release 24hr 240 mg PO DAILY Qty: 30 0RF ferrous sulfate 27 mg iron Tablet 27 mg PO USEASDIRECTD Rx Instructions: takes every other day Vitamin B-12 50 mcg tablet 100 mcg PO DAILY furosemide 40 mg Tablet 40 mg PO DAILY Qty: 90 0RF (DME) FreeStyle Test Strip See Rx Instructions .Route Qty: 100 3RF Rx Instructions: test qam fasting (DME) lancets [FreeStyle Lancets] 28 gauge misc See Rx Instructions .Route Qty: 100 3RF Rx Instructions: test qam fasting hydralazine 25 mg tablet 25 mg PO BID Qty: 180 1RF Follow-up/Referrals: Quinten Whitlock MD [Primary Care Provider] -
--- NOTE | 2024-11-30 12:48 | PC.NURSE ---
Pt assisted up to bedside commode, states she is unable to urinate with purewick. Pt tolerated well with supplemental oxygen remaining in place. Pt SpO2 was 90% after getting up. Lunch ordered for patient. No other requests at this time. Awaiting admission room assignment. Call light in reach.
--- NOTE | 2024-11-30 14:16 | P.HP_ITS ---
H&P: HPI History of Present Illness Date/Time: 11/30/24 14:16 Chief Complaint: Shortness of breath Narrative: 79-year-old female with past medical history of COPD, CHF, CKD stage 4, diabetes type 2, and atrial fibrillation presents the hospital with shortness of breath and abdominal distension. Patient states that she feels like she is fluid overloaded. She took extra dose of Lasix yesterday but did not help her breathing so she came into the emergency room today. Lab work in the ED showed anemia at 10.7 which is around her baseline, BUN 48, creatinine 3.10 which is around baseline, BNP 24964, influenza A/B, RSV, COVID negative. Chest x-ray read small left pleural effusion, and possible right pleural effusion, no pulmonary edema. EKG shows AFib rate control 94. Patient given 40 of IV Lasix in ED and nebulizer treatment. Being admitted for acute CHF. On bedside exam patient states the Lasix did not produce a whole urine she still feels short of breath however she does not want take Lasix this late at night, Lasix scheduled for the morning. Review of Systems Review of Systems: 12 systems were reviewed and are negativ e except for as per HPI. 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 A-fib Paroxysmal Myocardial infarction Seasonal allergies Hypertensive heart disease with heart failure Surgical History Surgical History Intertrochanteric fracture of right hip ORIF with trochanteric nail September 13, 2023 H/O: hysterectomy H/O cardiac catheterization H/O maze procedure H/O mitral valve repair With a ring Family History Family History Mother Family history of diabetes mellitus in first degree relative Family history of lung cancer Father Family history of coronary artery disease Hypertension Sibling Family history of diabetes mellitus in first degree relative Social History Social History Social History: She has with her for over 50 years. She desires to be full code. She smoked half a pack a cigarettes per day for 40 years quit March 14, 2014. No illicit drug use but does occasionally drink alcohol. 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 She has 2 children and 2 grandchildren. Her has dementia and she nominated her daughter Debbie to be the one to make medical decisions for her if she is unable. Smoking packs per day: 0.5 Smoking cigarettes per day: 10.0 Years smoked: 40 Smoking pack-years: 20.00 Smoking status: Former smoker Second hand tobacco smoke exposure: Yes Additional smoking assessment comments: Occasional smoker for 40 years Alcohol intake: never Drinks per week: 0 Alcohol use details: once a year Substance use: never Substance use type: does not use Do You Feel Safe in your Home?: Yes Lack of Transportation: No Lack of Food: Never True Current Housing: I Have Housing Concerned About Future Housing: No Difficulty Paying Gas/Electric Bills: No Difficulty Paying for Meds: No Currently Unemployed: No Education: Don't Know Difficulty w/ Childcare or Family Care: No Living arrangements: assisted living Additional living arrangements comments: [place] Occupation/Education: retired Gender identity (if verbalized by the patient): Female Sexual Orientation (if Verbalized by the Patient): Straight or Heterosexual Spiritual care concerns: No Agree to blood products: Yes Meds Home Medications and Allergies Home Medications ?Medication ?Instructions ?Recorded ?Confirmed ?Type cyclosporine 0.05 % eye drops 1 drop ophthalmic (eye) DAILY 10/24/19 11/30/24 History (Restasis MultiDose) diltiazem HCl 240 mg 240 mg PO DAILY #30 caps 12/30/19 11/30/24 Rx capsule,extended release 24 hr ferrous sulfate 27 mg iron tablet 27 mg PO USEASDIRECTD 12/09/23 11/30/24 History acetaminophen 500 mg tablet 500 mg PO Q6H PRN pain 06/22/24 11/30/24 History (Tylenol Extra Strength) carvedilol 12.5 mg tablet 12.5 mg PO Q12H 06/22/24 11/30/24 History cyanocobalamin (vitamin B-12) 50 100 mcg PO DAILY 06/22/24 11/30/24 History mcg tablet (Vitamin B-12) potassium chloride 20 mEq 20 meq PO .COMPLEX 06/22/24 11/30/24 History tablet,extended release(part/cryst) (Klor-Con M) blood sugar diagnostic (FreeStyle #100 ea 08/30/24 11/30/24 Rx Test strips) lancets 28 gauge (FreeStyle #100 ea 08/30/24 11/30/24 Rx Lancets) ezetimibe 10 mg tablet 10 mg PO DAILY #90 tabs 09/28/24 11/30/24 Rx furosemide 40 mg tablet 40 mg PO DAILY #90 tabs 11/06/24 11/30/24 Rx hydralazine 25 mg tablet 25 mg PO BID #180 tabs 11/08/24 11/30/24 Rx Allergies Allergy/AdvReac Type Severity Reaction Status Date / Time amiodarone Allergy Severe Unresponsiv Verified 11/30/24 15:27 e Vital Signs Vital Signs - 24 hr 11/30/24 07:48 11/30/24 08:04 11/30/24 08:04 Temperature 97.6 F Pulse Rate 111 H 106 H Respiratory Rate 25 H Blood Pressure 190/87 H Pulse Oximetry 94 95 Oxygen Delivery Nasal Cannula Room Air Oxygen Flow Rate 2 11/30/24 08:48 11/30/24 08:55 11/30/24 09:00 Temperature Pulse Rate 99 94 98 Respiratory Rate 26 H 33 H 38 H Blood Pressure 188/108 H Pulse Oximetry 98 Oxygen Delivery Oxygen Flow Rate 11/30/24 10:30 11/30/24 10:50 Temperature Pulse Rate 96 102 H Respiratory Rate 21 H 23 H Blood Pressure 165/87 H 165/87 H Pulse Oximetry 94 96 Oxygen Delivery Oxygen Flow Rate Exam Narrative: General: well appearing, appears stated age. HEENT: normocephalic, atraumatic. Mucous membranes moist. EOMI, PERRLA, bilateral sclera anicteric, no conjunctival injection. Neck supple without JVD, lymphadenopathy, or bruit. Respiratory: clear to ascultation bilaterally. No rales/rhonic/wheezes. Cardiovascular: Regular rate and rhythm, normal S1-S2 upon ascultation. No murmurs, rubs, or clicks. PMI is nondisplaced, capillary refill less than 3 second. Abdomen: Soft, round, no pulsatile masses, nondistended and nontender. No rebound, no guarding. No CVA tenderness, no hepatosplenomegaly. Bowel sounds present to all four quadrants. No high pitch or tinkling sounds, resonant to percussion. Extremities: No cyanosis, clubbing, or edema present. Pulses are palpable 2/2. Active ROM to all four extremities. Neuro: Alert and orientated x 4. PERRLA. Cranial nerves 2-12 intact without focal deficit. Skin: Warm, dry, and intact, without rash, erythema, or lesion. Psych: pleasant, cooperative, normal speech, normal affect, no hallucinations, no dysarthia H&P: Results Labs Labs: Short CBC 11/30/24 Range/Units 08:03 WBC 8.9 (4.5-10.0) K/mm3 Hgb 10.7 L (12.0-15.0) g/dL Hct 34.8 L (37.0-47.0) % Plt Count 212 (150-375) k/mm3 BMP 11/30/24 08:03 Sodium 143 Potassium 3.8 Chloride 107 Carbon Dioxide 27 BUN 48 H D Creatinine 3.01 H Glucose 117 H Calcium 9.0 Liver Function 11/30/24 Range/Units 08:03 Total Bilirubin 1.0 (0.2-1.3) mg/dL AST 14 (14-36) U/L ALT 10 (6-35) U/L Alkaline Phosphatase 79 (38-126) U/L Albumin 3.9 (3.5-5.1) g/dL Assessment and Plan Assessment and plan (1) Acute exacerbation of CHF (congestive heart failure): Qualifiers: Heart failure type: unspecified Qualified Code(s): I50.9 - Heart failure, unspecified Code(s): I50.9 - Heart failure, unspecified Status: Acute Assessment and Plan: 40 of IV Lasix x1 given in ED IV Lasix in a.m. (2) A-fib: Qualifiers: Atrial fibrillation type: persistent (not longstanding) Qualified Code(s): I48.19 - Other persistent atrial fibrillation Code(s): I48.91 - Unspecified atrial fibrillation Status: Chronic Assessment and Plan: Continue diltiazem (3) HTN (hypertension): Qualifiers: Hypertension type: unspecified Qualified Code(s): I10 - Essential (primary) hypertension Code(s): I10 - Essential (primary) hypertension Status: Chronic Assessment and Plan: Continue home antihypertensive (4) Shortness of breath: Code(s): R06.02 - Shortness of breath Status: Resolved Assessment and Plan: DuoNeb Influenza A/B, RSV, COVID negative Quality VTE Prophylaxis VTE prophylaxis: mechanical ordered and pharmacologic ordered Hospitalist MIPS Advance Care Plan I have confirmed that the patient's Advanced Care Plan is present, code status is documented, or surrogate decision maker is listed in patient medical record.: Yes Medication Reconciliation I have utilized all available resources to obtain, update and review the patients current medications (includes all prescriptions, OTC, herbals, cannabis, and nutritional supplements).: Yes
[2024-11-30] MEDS: dilTIAZem HCL CD 240 MG CAP.24HR PO (17:15)
[2024-11-30] MEDS: hydrALAZINE HCL 25 MG TABLET PO (17:53)
--- NOTE | 2024-11-30 18:06 | ADMGEN ---
This patient, Vicente Schofield, was admitted to 3 [facility] Surg Room 320-01. Patient/family oriented to hospital policies and general routines including ID bracelet, bed and alarms, visiting hours, pain management, procedures, bathroom and other care routines, personal items, smoking policy, room service/diet, and visiting hours. Information on how to activate the Rapid Response Team has been discussed. Patient/Family are encouraged to report perceived risks to care and to ask questions if they do not understand what they are told or what they should do. Report from Lacey.
[2024-11-30] MEDS: carvediloL 12.5 MG TABLET PO (20:33)
[2024-11-30 22:02] LABS: Glucose Point of Care 176 mg/dl (65-105)
[2024-12-01] VITALS (9 sets, daily range): BP systolic 136–147; BP diastolic 58–79; PULSE 73–97; RESP 14–18; TEMP 36.1–36.7; O2SAT 94–95
[2024-12-01 07:18] LABS: Basophils Absolute Auto 0.1 K/mm3 (0.0-0.1); Basophils Percent Auto 0.7 % (0.2-1.2); Eosinophils Absolute Auto 0.7 K/mm3 (0-0.3); Eosinophils Percent Auto 9.5 % (0-4.4); Hematocrit 32.1 % (37.0-47.0); Hemoglobin 10.1 g/dL (12.0-15.0); Immature Granulocyte Absolute 0.02 K/mm3 (0.00-0.031); Immature Granulocyte Percent A 0.3 % (0-0.5); Lymphocytes Absolute Auto 1.18 K/mm3 (0.9-3.2); Lymphocytes Percent Auto 16.8 % (18.3-44.2); Mean Corpuscular HGB Conc 31.5 g/dl (32-36); Mean Corpuscular Hemoglobin 30.4 pg (26-34); Mean Corpuscular Volume 96.7 fl (80-100); Mean Platelet Volume 10.5 fl (7.4-10.4); Monocytes Absolute Auto 0.6 K/mm3 (0.1-0.6); Monocytes Percent Auto 8.8 % (2.6-8.5); Neutrophils Absolute Auto 4.5 K/mm3 (1.3-6.7); Neutrophils Percent Auto 63.9 % (45.5-73.1); Platelet Count Result 183 k/mm3 (150-375); Red Blood Count 3.32 M/mm3 (4.2-5.4); Red Cell Distribution Width 13.9 % (11.5-14.5)
[2024-12-01 07:33] LABS: Anion Gap 9 mmol/L (4-12); Blood Urea Nitrogen 47 mg/dL (7-17); Calcium 8.6 mg/dL (8.4-10.2); Carbon Dioxide 27 mmol/L (22-30); Chloride 104 mmol/L (98-107); Estimated CRCL calculation 14 ml/min; Estimated Glomerular Filt Rate 16; Glucose 99 mg/dL (65-110); Potassium 3.5 mmol/L (3.4-5.0); Sodium 140 mmol/L (137-145)
[2024-12-01] MEDS: DOCUSATE SODIUM 100 MG CAPSULE PO (09:44)
[2024-12-01] MEDS: hydrALAZINE HCL 25 MG TABLET PO ×2 (09:44→18:51)
[2024-12-01] MEDS: dilTIAZem HCL CD 240 MG CAP.24HR PO (09:44)
[2024-12-01] MEDS: EZETIMIBE 10 MG TABLET PO ×2 (09:44→10:01)
[2024-12-01] MEDS: cycloSPORINE 0.4 ML OPHTH SOLUTION 1 DROP EACH EYE (09:45)
[2024-12-01] MEDS: FUROSEMIDE INJ 40 MG/4 ML VIAL 20 MG IV PUSH (10:01)
[2024-12-01] MEDS: carvediloL 12.5 MG TABLET PO ×2 (10:01→20:41)
[2024-12-01] MEDS: ENOXAPARIN 30 MG/0.3 ML SYRINGE SUB-Q (10:01)
--- NOTE | 2024-12-01 11:47 | P.PNIM_ITS ---
Progress Note: A&P Assessment and Plan (1) Acute exacerbation of CHF (congestive heart failure): Qualifiers: Heart failure type: unspecified Qualified Code(s): I50.9 - Heart failure, unspecified Code(s): I50.9 - Heart failure, unspecified Status: Acute Assessment and Plan: 40 of IV Lasix x1 given in ED IV Lasix daily. (2) A-fib: Qualifiers: Atrial fibrillation type: persistent (not longstanding) Qualified Code(s): I48.19 - Other persistent atrial fibrillation Code(s): I48.91 - Unspecified atrial fibrillation Status: Chronic Assessment and Plan: Continue diltiazem (3) HTN (hypertension): Qualifiers: Hypertension type: unspecified Qualified Code(s): I10 - Essential (primary) hypertension Code(s): I10 - Essential (primary) hypertension Status: Chronic Assessment and Plan: Continue home antihypertensive (4) Shortness of breath: Code(s): R06.02 - Shortness of breath Status: Resolved Assessment and Plan: DuoNeb and IV lasix Influenza A/B, RSV, COVID negative Plan Plan is to continue with diuresis. Monitor creatinine. Possible discharge in few days Subjective Date/time seen: 12/01/24 11:47 Interval history: Patient was seen during the morning rounds today. Patient is feeling slightly better. decreased shortness of breath. No chest pain. No abdominal pain, nausea, no vomiting. Mood stable. Review of Systems Review of Systems: 12 systems were reviewed and are negativ e except for as per HPI. Exam Narrative: General: well appearing, appears stated age. HEENT: normocephalic, atraumatic. Mucous membranes moist. EOMI, PERRLA, bilateral sclera anicteric, no conjunctival injection. Neck supple without JVD, lymphadenopathy, or bruit. Respiratory: Air entry decreased, few rales at the bases. Cardiovascular: Regular rate and rhythm, normal S1-S2 upon auscultation. No murmurs, rubs, or clicks. PMI is nondisplaced, capillary refill less than 3 second. Abdomen: Soft, round, no pulsatile masses, nondistended and nontender. No rebound, no guarding. No CVA tenderness, no hepatosplenomegaly. Bowel sounds present to all four quadrants. No high pitch or tinkling sounds, resonant to percussion. Extremities: No cyanosis, clubbing, or edema present. Pulses are palpable 2/2. Active ROM to all four extremities. Neuro: Alert and orientated x 4. PERRLA. Cranial nerves 2-12 intact without focal deficit. Skin: Warm, dry, and intact, without rash, erythema, or lesion. Psych: pleasant, cooperative, normal speech, normal affect, no hallucinations, no dysarthia Objective Data Vital Signs Vital Signs: Vital Signs - 24 hr 11/30/24 11:53 11/30/24 12:00 11/30/24 12:17 Temperature Pulse Rate 105 H 99 97 Respiratory Rate 17 28 H 28 H Blood Pressure Pulse Oximetry 89 L 94 95 Oxygen Delivery Oxygen Flow Rate 11/30/24 12:30 11/30/24 12:55 11/30/24 13:00 Temperature Pulse Rate 90 90 92 Respiratory Rate 23 H 29 H 28 H Blood Pressure Pulse Oximetry 90 93 92 Oxygen Delivery Oxygen Flow Rate 11/30/24 13:15 11/30/24 13:30 11/30/24 13:48 Temperature Pulse Rate 90 93 99 Respiratory Rate 22 H 29 H 31 H Blood Pressure Pulse Oximetry 93 90 Oxygen Delivery Oxygen Flow Rate 11/30/24 14:00 11/30/24 14:16 11/30/24 14:30 Temperature Pulse Rate 97 91 92 Respiratory Rate 26 H 23 H 31 H Blood Pressure Pulse Oximetry 94 95 96 Oxygen Delivery Oxygen Flow Rate 11/30/24 15:09 11/30/24 15:15 11/30/24 15:26 Temperature Pulse Rate 93 86 86 Respiratory Rate 28 H 20 25 H Blood Pressure 159/94 H Pulse Oximetry 97 95 94 Oxygen Delivery Oxygen Flow Rate 11/30/24 15:30 11/30/24 15:45 11/30/24 16:00 Temperature Pulse Rate 91 87 84 Respiratory Rate 27 H 33 H 26 H Blood Pressure Pulse Oximetry 91 92 Oxygen Delivery Oxygen Flow Rate 11/30/24 16:15 11/30/24 16:45 11/30/24 17:07 Temperature Pulse Rate 84 83 Respiratory Rate 32 H 31 H Blood Pressure Pulse Oximetry 91 92 92 Oxygen Delivery High Flow Nasal Cannula Oxygen Flow Rate 4 11/30/24 18:20 11/30/24 18:51 11/30/24 20:18 Temperature 36.2 C L 36.7 C Pulse Rate 86 92 77 Respiratory Rate 26 H 16 Blood Pressure 154/76 H 147/62 H Pulse Oximetry 90 94 98 Oxygen Delivery Nasal Cannula Oxygen Flow Rate 4 11/30/24 20:33 12/01/24 00:43 12/01/24 05:37 Temperature 36.4 C 36.4 C Pulse Rate 84 79 92 Respiratory Rate 14 16 Blood Pressure 139/65 147/79 H Pulse Oximetry 95 95 Oxygen Delivery Oxygen Flow Rate 12/01/24 08:00 12/01/24 10:11 Temperature 36.1 C L Pulse Rate 97 Respiratory Rate 18 Blood Pressure 147/77 H Pulse Oximetry 94 94 Oxygen Delivery Nasal Cannula Oxygen Flow Rate 1 Intake/Output Intake/Output: Intake & Output 11/28/24 11/29/24 11/30/24 12/01/24 23:59 23:59 23:59 23:59 Intake Total 440 240 Balance 440 240 Meds/Results Medications: Active Medications Generic Name Dose Route Start Last Admin Trade Name Freq PRN Reason Stop Dose Admin Acetaminophen 650 mg 11/30/24 14:35 Acetaminophen 325 Mg Tablet PO Q4H PRN Mild Pain (1-3) or Fever Carvedilol 12.5 mg 11/30/24 21:00 12/01/24 10:01 Carvedilol 12.5 Mg Tablet PO 12.5 mg Q12H SUKUMAR Administration Cyclosporine 1 drop 12/01/24 09:00 12/01/24 09:45 Cyclosporine 0.4 Ml Ophth Solution EACH EYE 1 drop DAILY SUKUMAR Administration Dextrose 12.5 gm 11/30/24 17:21 Dextrose 50% 25 Gm/50 Ml Syringe IV PUSH PRN PRN Hypoglycemia Protocol Diltiazem HCl 240 mg 11/30/24 14:30 12/01/24 09:44 Diltiazem Hcl Cd 240 Mg Cap.24hr PO 240 mg DAILY SUKUMAR Administration Docusate Sodium 100 mg 12/01/24 09:00 12/01/24 09:44 Docusate Sodium 100 Mg Capsule PO 100 mg DAILY SUKUMAR Administration Ezetimibe 10 mg 12/01/24 09:00 12/01/24 10:01 Ezetimibe 10 Mg Tablet PO 10 mg DAILY SUKUMAR Administration Enoxaparin Sodium 30 mg 12/01/24 09:00 12/01/24 10:01 Enoxaparin 30 Mg/0.3 Ml Syringe SUB-Q 30 mg DAILY SUKUMAR Administration Furosemide 20 mg 12/02/24 09:00 Furosemide Inj 40 Mg/4 Ml Vial IV PUSH DAILY [facility] Glucagon 1 mg 11/30/24 17:21 Glucagon For Inj 1 Mg Vial IM PRN PRN Hypoglycemia Protocol Glucose 15 gm 11/30/24 17:21 Glucose Oral Gel 15 Gm Of Glucse In 37.5 Gm Tube PO PRN PRN Hypoglycemia Protocol Hydralazine HCl 25 mg 11/30/24 17:00 12/01/24 09:44 Hydralazine Hcl 25 Mg Tablet PO 25 mg BID SUKUMAR Administration Dextrose 1,000 mls @ 100 mls/hr 11/30/24 17:21 Dextrose 5% 1,000 Ml IVPB PRN PRN Hypoglycemia Protocol Potassium Chloride 10 meq 12/02/24 08:00 Potassium Chloride 10 Meq Er Tablet PO DAILY@0800 [facility] Radiology Results: ITS Impressions Chest X-Ray 11/30/24 08:26 Impression: COPD. Small left pleural effusion and possible minimal right pleural effusion. Labs Labs: Laboratory Results - last 24 hr 11/30/24 12/01/24 20:24 06:39 WBC 7.0 RBC 3.32 L Hgb 10.1 L Hct 32.1 L MCV 96.7 MCH 30.4 MCHC 31.5 L RDW 13.9 Plt Count 183 MPV 10.5 H Immature Gran % (Auto) 0.3 Neut % (Auto) 63.9 Lymph % (Auto) 16.8 L Fleming % (Auto) 8.8 H Eos % (Auto) 9.5 H Baso % (Auto) 0.7 Lymph # (Auto) 1.18 Fleming # (Auto) 0.6 Eos # (Auto) 0.7 H Baso # (Auto) 0.1 Abs Immat Gran (auto) 0.02 Absolute Neuts (auto) 4.5 Absolute Nucleated RBC 0.000 Nucleated RBC % 0.0 Sodium 140 Potassium 3.5 Chloride 104 Carbon Dioxide 27 Anion Gap 9 BUN 47 H Creatinine 2.79 H Estim Creat Clear Calc 14 Estimated GFR 16 L Glucose 99 POC Capillary Glucose 176 H Calcium 8.6 Quality VTE Prophylaxis VTE prophylaxis: mechanical ordered and pharmacologic ordered
[2024-12-02] VITALS (8 sets, daily range): BP systolic 132–154; BP diastolic 59–73; PULSE 74–100; RESP 14–20; TEMP 36.4–36.7; O2SAT 95–99
[2024-12-02] MEDS: DOCUSATE SODIUM 100 MG CAPSULE PO (08:35)
[2024-12-02] MEDS: dilTIAZem HCL CD 240 MG CAP.24HR PO (08:35)
[2024-12-02] MEDS: hydrALAZINE HCL 25 MG TABLET PO ×2 (08:35→17:53)
[2024-12-02] MEDS: carvediloL 12.5 MG TABLET PO ×2 (08:35→21:00)
[2024-12-02] MEDS: cycloSPORINE 0.4 ML OPHTH SOLUTION 1 DROP EACH EYE (08:35)
[2024-12-02] MEDS: FUROSEMIDE INJ 40 MG/4 ML VIAL 20 MG IV PUSH (08:36)
[2024-12-02] MEDS: POTASSIUM CHLORIDE 10 MEQ ER TABLET PO (08:37)
--- NOTE | 2024-12-02 11:45 | PC.NURSE ---
Patient resting in bed and has finished her breakfast. She is very calm and cooperative. Patient refused lovenox as she had a bad experience with a blood thinner in the past. No pain and denies any needs at this time.
--- NOTE | 2024-12-02 11:52 | P.PNIM_ITS ---
Progress Note: A&P Assessment and Plan (1) Acute exacerbation of CHF (congestive heart failure): Qualifiers: Heart failure type: unspecified Qualified Code(s): I50.9 - Heart failure, unspecified Code(s): I50.9 - Heart failure, unspecified Status: Acute Assessment and Plan: 40 of IV Lasix x1 given in ED IV Lasix daily. (2) A-fib: Qualifiers: Atrial fibrillation type: persistent (not longstanding) Qualified Code(s): I48.19 - Other persistent atrial fibrillation Code(s): I48.91 - Unspecified atrial fibrillation Status: Chronic Assessment and Plan: Continue diltiazem (3) HTN (hypertension): Qualifiers: Hypertension type: unspecified Qualified Code(s): I10 - Essential (primary) hypertension Code(s): I10 - Essential (primary) hypertension Status: Chronic Assessment and Plan: Continue home antihypertensive (4) Shortness of breath: Code(s): R06.02 - Shortness of breath Status: Resolved Assessment and Plan: DuoNeb and IV lasix Influenza A/B, RSV, COVID negative Plan Plan is to continue with diuresis. Monitor creatinine. Possible discharge in few days Subjective Date/time seen: 12/02/24 11:52 Interval history: Patient was seen during the morning rounds today No new overnight complaints. Patient is feeling slightly better. decreased shortness of breath. No chest pain. No abdominal pain, nausea, no vomiting. Mood stable. Review of Systems Review of Systems: 12 systems were reviewed and are negativ e except for as per HPI. Exam Narrative: General: well appearing, appears stated age. HEENT: normocephalic, atraumatic. Mucous membranes moist. EOMI, PERRLA, bilateral sclera anicteric, no conjunctival injection. Neck supple without JVD, lymphadenopathy, or bruit. Respiratory: Air entry decreased, few rales at the bases. Cardiovascular: Regular rate and rhythm, normal S1-S2 upon auscultation. No murmurs, rubs, or clicks. PMI is nondisplaced, capillary refill less than 3 second. Abdomen: Soft, round, no pulsatile masses, nondistended and nontender. No rebound, no guarding. No CVA tenderness, no hepatosplenomegaly. Bowel sounds present to all four quadrants. No high pitch or tinkling sounds, resonant to percussion. Extremities: No cyanosis, clubbing, or edema present. Pulses are palpable 2/2. Active ROM to all four extremities. Neuro: Alert and orientated x 4. PERRLA. Cranial nerves 2-12 intact without focal deficit. Skin: Warm, dry, and intact, without rash, erythema, or lesion. Psych: pleasant, cooperative, normal speech, normal affect, no hallucinations, no dysarthia Objective Data Vital Signs Vital Signs: Vital Signs - 24 hr 12/01/24 11:58 12/01/24 16:00 12/01/24 19:45 Temperature 36.4 C L 36.1 C L 36.7 C Pulse Rate 82 73 81 Respiratory Rate 18 18 18 Blood Pressure 136/64 140/58 L 146/75 H Pulse Oximetry 94 94 95 Oxygen Delivery Oxygen Flow Rate 12/01/24 20:00 12/01/24 20:41 12/02/24 01:03 Temperature 36.4 C Pulse Rate 76 74 Respiratory Rate 14 Blood Pressure 132/59 L Pulse Oximetry 95 96 Oxygen Delivery Nasal Cannula Oxygen Flow Rate 4 12/02/24 06:01 12/02/24 08:35 Temperature 36.4 C Pulse Rate 82 100 Respiratory Rate 14 Blood Pressure 154/67 H Pulse Oximetry 95 Oxygen Delivery Oxygen Flow Rate Intake/Output Intake/Output: Intake & Output 11/29/24 11/30/24 12/01/24 12/02/24 23:59 23:59 23:59 23:59 Intake Total 440 720 440 Output Total 400 850 Balance 440 320 -410 Meds/Results Medications: Active Medications Generic Name Dose Route Start Last Admin Trade Name Freq PRN Reason Stop Dose Admin Acetaminophen 650 mg 11/30/24 14:35 Acetaminophen 325 Mg Tablet PO Q4H PRN Mild Pain (1-3) or Fever Alprazolam 0.25 mg 12/02/24 11:51 Alprazolam (*Crx) 0.25 Mg Tablet PO HS PRN Anxiety Carvedilol 12.5 mg 11/30/24 21:00 12/02/24 08:35 Carvedilol 12.5 Mg Tablet PO 12.5 mg Q12H SUKUMAR Administration Cyclosporine 1 drop 12/01/24 09:00 12/02/24 08:35 Cyclosporine 0.4 Ml Ophth Solution EACH EYE 1 drop DAILY SUKUMAR Administration Dextrose 12.5 gm 11/30/24 17:21 Dextrose 50% 25 Gm/50 Ml Syringe IV PUSH PRN PRN Hypoglycemia Protocol Diltiazem HCl 240 mg 11/30/24 14:30 12/02/24 08:35 Diltiazem Hcl Cd 240 Mg Cap.24hr PO 240 mg DAILY SUKUMAR Administration Docusate Sodium 100 mg 12/01/24 09:00 12/02/24 08:35 Docusate Sodium 100 Mg Capsule PO 100 mg DAILY SUKUMAR Administration Ezetimibe 10 mg 12/01/24 09:00 12/01/24 10:01 Ezetimibe 10 Mg Tablet PO 10 mg DAILY SUKUMAR Administration Enoxaparin Sodium 30 mg 12/01/24 09:00 12/02/24 08:38 Enoxaparin 30 Mg/0.3 Ml Syringe SUB-Q Not Given DAILY SUKUMAR Furosemide 40 mg 12/02/24 11:50 Furosemide Inj 40 Mg/4 Ml Vial IV PUSH DAILY SUKUMAR Glucagon 1 mg 11/30/24 17:21 Glucagon For Inj 1 Mg Vial IM PRN PRN Hypoglycemia Protocol Glucose 15 gm 11/30/24 17:21 Glucose Oral Gel 15 Gm Of Glucse In 37.5 Gm Tube PO PRN PRN Hypoglycemia Protocol Hydralazine HCl 25 mg 11/30/24 17:00 12/02/24 08:35 Hydralazine Hcl 25 Mg Tablet PO 25 mg BID SUKUMAR Administration Dextrose 1,000 mls @ 100 mls/hr 11/30/24 17:21 Dextrose 5% 1,000 Ml IVPB PRN PRN Hypoglycemia Protocol Potassium Chloride 10 meq 12/02/24 08:00 12/02/24 08:37 Potassium Chloride 10 Meq Er Tablet PO 10 meq DAILY@0800 SUKUMAR Administration Radiology Results: ITS Impressions Chest X-Ray 11/30/24 08:26 Impression: COPD. Small left pleural effusion and possible minimal right pleural effusion. Quality VTE Prophylaxis VTE prophylaxis: mechanical ordered and pharmacologic ordered
[2024-12-02] MEDS: FUROSEMIDE INJ 40 MG/4 ML VIAL IV PUSH (17:53)
[2024-12-02] MEDS: ALPRAZolam (*CRX) 0.25 MG TABLET PO (21:00)
[2024-12-03] VITALS (7 sets, daily range): BP systolic 120–153; BP diastolic 54–62; PULSE 59–80; RESP 13–20; TEMP 36.2–36.8; O2SAT 96–98
[2024-12-03 07:26] LABS: Alanine Aminotransferase 9 U/L (6-35); Albumin Level 3.4 g/dL (3.5-5.1); Alkaline Phosphatase 74 U/L (38-126); Anion Gap 9 mmol/L (4-12); Aspartate Amino Transferase 14 U/L (14-36); Bilirubin,Total 0.7 mg/dL (0.2-1.3); Blood Urea Nitrogen 50 mg/dL (7-17); Calcium 8.5 mg/dL (8.4-10.2); Carbon Dioxide 29 mmol/L (22-30); Chloride 102 mmol/L (98-107); Estimated CRCL calculation 14 ml/min; Estimated Glomerular Filt Rate 16; Glucose 112 mg/dL (65-110); Potassium 3.4 mmol/L (3.4-5.0); Sodium 140 mmol/L (137-145)
[2024-12-03] MEDS: DOCUSATE SODIUM 100 MG CAPSULE PO (08:27)
[2024-12-03] MEDS: dilTIAZem HCL CD 240 MG CAP.24HR PO (08:27)
[2024-12-03] MEDS: EZETIMIBE 10 MG TABLET PO (08:27)
[2024-12-03] MEDS: hydrALAZINE HCL 25 MG TABLET PO ×2 (08:27→17:33)
[2024-12-03] MEDS: carvediloL 12.5 MG TABLET PO ×2 (08:27→20:49)
[2024-12-03] MEDS: POTASSIUM CHLORIDE 10 MEQ ER TABLET PO (08:28)
[2024-12-03] MEDS: FUROSEMIDE INJ 40 MG/4 ML VIAL IV PUSH (08:28)
[2024-12-03] MEDS: cycloSPORINE 0.4 ML OPHTH SOLUTION 1 DROP EACH EYE (09:17)
--- NOTE | 2024-12-03 09:30 | P.PNIM_ITS ---
Progress Note: A&P Assessment and Plan (1) Acute exacerbation of CHF (congestive heart failure): Qualifiers: Heart failure type: unspecified Qualified Code(s): I50.9 - Heart failure, unspecified Code(s): I50.9 - Heart failure, unspecified Status: Acute Assessment and Plan: 40 of IV Lasix x1 given in ED IV Lasix daily. Monitor I's and O's. (2) A-fib: Qualifiers: Atrial fibrillation type: persistent (not longstanding) Qualified Code(s): I48.19 - Other persistent atrial fibrillation Code(s): I48.91 - Unspecified atrial fibrillation Status: Chronic Assessment and Plan: Heart rate is controlled, Continue diltiazem (3) HTN (hypertension): Qualifiers: Hypertension type: unspecified Qualified Code(s): I10 - Essential (primary) hypertension Code(s): I10 - Essential (primary) hypertension Status: Chronic Assessment and Plan: Continue home antihypertensive stable on current medication. (4) Shortness of breath: Code(s): R06.02 - Shortness of breath Status: Resolved Assessment and Plan: DuoNeb and IV lasix Influenza A/B, RSV, COVID negative Plan Plan is to continue with diuresis. Monitor creatinine. Possible discharge in am. Subjective Date/time seen: 12/03/24 09:30 Interval history: Patient was seen during the morning rounds today. patient was admitted for congestive heart failure exacerbation. No new overnight complaints. Patient is feeling slightly better. decreased shortness of breath. No chest pain. No abdominal pain, nausea, no vomiting. Mood stable. Review of Systems Review of Systems: 12 systems were reviewed and are negativ e except for as per HPI. Exam Narrative: General: well appearing, appears stated age. HEENT: normocephalic, atraumatic. Mucous membranes moist. EOMI, PERRLA, bilateral sclera anicteric, no conjunctival injection. Neck supple without JVD, lymphadenopathy, or bruit. Respiratory: Air entry decreased, few rales at the bases. Cardiovascular: Regular rate and rhythm, normal S1-S2 upon auscultation. No murmurs, rubs, or clicks. PMI is nondisplaced, capillary refill less than 3 s econd. Abdomen: Soft, round, no pulsatile masses, nondistended and nontender. No rebound, no guarding. No CVA tenderness, no hepatosplenomegaly. Bowel sounds present to all four quadrants. No high pitch or tinkling sounds, resonant to percussion. Extremities: No cyanosis, clubbing, or edema present. Pulses are palpable 2/2. Active ROM to all four extremities. Neuro: Alert and orientated x 4. PERRLA. Cranial nerves 2-12 intact without focal deficit. Skin: Warm, dry, and intact, without rash, erythema, or lesion. Psych: pleasant, cooperative, normal speech, normal affect, no hallucinations, no dysarthia Objective Data Vital Signs Vital Signs: Vital Signs - 24 hr 12/02/24 12:00 12/02/24 16:00 12/02/24 20:00 Temperature 36.5 C 36.7 C 36.5 C Pulse Rate 97 96 81 Respiratory Rate 18 20 18 Blood Pressure 152/68 H 145/70 H 151/73 H Pulse Oximetry 95 96 96 Oxygen Delivery Oxygen Flow Rate 12/02/24 20:00 12/02/24 21:00 12/03/24 04:00 Temperature 36.4 C Pulse Rate 84 73 Respiratory Rate 20 Blood Pressure 153/57 H Pulse Oximetry 96 97 Oxygen Delivery Nasal Cannula Oxygen Flow Rate 2.5 12/03/24 08:00 12/03/24 08:27 Temperature 36.8 C Pulse Rate 71 76 Respiratory Rate 17 Blood Pressure 134/62 Pulse Oximetry 96 Oxygen Delivery Oxygen Flow Rate Intake/Output Intake/Output: Intake & Output 11/30/24 12/01/24 12/02/24 12/03/24 23:59 23:59 23:59 23:59 Intake Total 229 620 8797 Output Total 400 850 900 Balance 440 320 310 -900 Meds/Results Medications: Active Medications Generic Name Dose Route Start Last Admin Trade Name Freq PRN Reason Stop Dose Admin Acetaminophen 650 mg 11/30/24 14:35 Acetaminophen 325 Mg Tablet PO Q4H PRN Mild Pain (1-3) or Fever Alprazolam 0.25 mg 12/02/24 11:51 12/02/24 21:00 Alprazolam (*Crx) 0.25 Mg Tablet PO 0.25 mg HS PRN Administration Anxiety Carvedilol 12.5 mg 11/30/24 21:00 12/03/24 08:27 Carvedilol 12.5 Mg Tablet PO 12.5 mg Q12H SUKUMAR Administration Cyclosporine 1 drop 12/01/24 09:00 12/03/24 09:17 Cyclosporine 0.4 Ml Ophth Solution EACH EYE 1 drop DAILY SUKUMAR Administration Dextrose 12.5 gm 11/30/24 17:21 Dextrose 50% 25 Gm/50 Ml Syringe IV PUSH PRN PRN Hypoglycemia Protocol Diltiazem HCl 240 mg 11/30/24 14:30 12/03/24 08:27 Diltiazem Hcl Cd 240 Mg Cap.24hr PO 240 mg DAILY SUKUMAR Administration Docusate Sodium 100 mg 12/01/24 09:00 12/03/24 08:27 Docusate Sodium 100 Mg Capsule PO 100 mg DAILY SUKUMAR Administration Ezetimibe 10 mg 12/01/24 09:00 12/03/24 08:27 Ezetimibe 10 Mg Tablet PO 10 mg DAILY SUKUMAR Administration Enoxaparin Sodium 30 mg 12/01/24 09:00 12/03/24 09:18 Enoxaparin 30 Mg/0.3 Ml Syringe SUB-Q Not Given DAILY SUKUMAR Furosemide 20 mg 12/04/24 09:00 Furosemide Inj 40 Mg/4 Ml Vial IV PUSH DAILY SUKUMAR Glucagon 1 mg 11/30/24 17:21 Glucagon For Inj 1 Mg Vial IM PRN PRN Hypoglycemia Protocol Glucose 15 gm 11/30/24 17:21 Glucose Oral Gel 15 Gm Of Glucse In 37.5 Gm Tube PO PRN PRN Hypoglycemia Protocol Hydralazine HCl 25 mg 11/30/24 17:00 12/03/24 08:27 Hydralazine Hcl 25 Mg Tablet PO 25 mg BID SUKUMAR Administration Dextrose 1,000 mls @ 100 mls/hr 11/30/24 17:21 Dextrose 5% 1,000 Ml IVPB PRN PRN Hypoglycemia Protocol Potassium Chloride 10 meq 12/02/24 08:00 12/03/24 08:28 Potassium Chloride 10 Meq Er Tablet PO 10 meq DAILY@0800 SUKUMAR Administration Radiology Results: ITS Impressions Chest X-Ray 11/30/24 08:26 Impression: COPD. Small left pleural effusion and possible minimal right pleural effusion. Labs Labs: Laboratory Results - last 24 hr 12/03/24 06:51 Sodium 140 Potassium 3.4 Chloride 102 Carbon Dioxide 29 Anion Gap 9 BUN 50 H Creatinine 2.89 H Estim Creat Clear Calc 14 Estimated GFR 16 L Glucose 112 H Calcium 8.5 Total Bilirubin 0.7 AST 14 ALT 9 Alkaline Phosphatase 74 Total Protein 6.0 L Albumin 3.4 L Quality VTE Prophylaxis VTE prophylaxis: mechanical ordered and pharmacologic ordered
[2024-12-03] MEDS: ALPRAZolam (*CRX) 0.25 MG TABLET PO (20:52)
[2024-12-04] VITALS (8 sets, daily range): BP systolic 149; BP diastolic 60; PULSE 70–108; RESP 18; TEMP 36.2; O2SAT 87–95
[2024-12-04 08:29] LABS: Alanine Aminotransferase 8 U/L (6-35); Albumin Level 3.4 g/dL (3.5-5.1); Alkaline Phosphatase 72 U/L (38-126); Anion Gap 7 mmol/L (4-12); Aspartate Amino Transferase 15 U/L (14-36); Bilirubin,Total 0.7 mg/dL (0.2-1.3); Blood Urea Nitrogen 51 mg/dL (7-17); Calcium 8.5 mg/dL (8.4-10.2); Carbon Dioxide 29 mmol/L (22-30); Chloride 103 mmol/L (98-107); Estimated CRCL calculation 14 ml/min; Estimated Glomerular Filt Rate 16; Glucose 110 mg/dL (65-110); Potassium 3.6 mmol/L (3.4-5.0); Sodium 139 mmol/L (137-145)
[2024-12-04] MEDS: DOCUSATE SODIUM 100 MG CAPSULE PO (08:57)
[2024-12-04] MEDS: POTASSIUM CHLORIDE 10 MEQ ER TABLET PO (08:57)
[2024-12-04] MEDS: FUROSEMIDE INJ 40 MG/4 ML VIAL 20 MG IV PUSH (08:57)
[2024-12-04] MEDS: cycloSPORINE 0.4 ML OPHTH SOLUTION 1 DROP EACH EYE (08:57)
[2024-12-04] MEDS: carvediloL 12.5 MG TABLET PO (08:57)
[2024-12-04] MEDS: EZETIMIBE 10 MG TABLET PO (08:57)
[2024-12-04] MEDS: dilTIAZem HCL CD 240 MG CAP.24HR PO (08:58)
[2024-12-04] MEDS: hydrALAZINE HCL 25 MG TABLET PO (08:58)
--- NOTE | 2024-12-04 13:35 | P.DS_ITS ---
DS: Admitting Diagnosis Discharge Date 12/04 Admitting Diagnosis sob DS: Discharge Diagnosis Discharge Diagnosis (1) Acute exacerbation of CHF (congestive heart failure): Qualifiers: Heart failure type: unspecified Qualified Code(s): I50.9 - Heart failure, unspecified Code(s): I50.9 - Heart failure, unspecified Status: Acute (2) A-fib: Qualifiers: Atrial fibrillation type: persistent (not longstanding) Qualified Code(s): I48.19 - Other persistent atrial fibrillation Code(s): I48.91 - Unspecified atrial fibrillation Status: Chronic Assessment and Plan: (3) HTN (hypertension): Qualifiers: Hypertension type: unspecified Qualified Code(s): I10 - Essential (primary) hypertension Code(s): I10 - Essential (primary) hypertension Status: Chronic (4) Shortness of breath: Code(s): R06.02 - Shortness of breath Status: Resolved Plan DS: Summary Hospital Course Hospital Course: 79-year-old female with past medical history of COPD, CHF, CKD stage 4, diabetes type 2, and atrial fibrillation presents the hospital with shortness of breath and abdominal distension. Patient states that she feels like she is fluid overloaded. She took extra dose of Lasix yesterday but did not help her breathing so she came into the emergency room today. Lab work in the ED showed anemia at 10.7 which is around her baseline, BUN 48, creatinine 3.10 which is around baseline, BNP 75073, influenza A/B, RSV, COVID negative. Chest x-ray read small left pleural effusion, and possible right pleural effusion, no pulmonary edema. EKG shows AFib rate control 94. Patient given 40 of IV Lasix in ED and nebulizer treatment. Being admitted for acute CHF. 12/04- pt is greatly improved, still on oxygen but no leg swelling. Will do home o2 eval and discharge on appropriate regimen. Afib was controlled with diltiazem. Status at Discharge Functional status at discharge: uses cane/walker Overall status at discharge: patient is progressing back to baseline Time Spent with Patient Time attestation: Total time spent providing and/or coordinating discharge services: Time spent: Greater than 30 minutes Exam Narrative: General: well appearing, appears stated age. HEENT: normocephalic, atraumatic. Mucous membranes moist. EOMI, PERRLA, bilateral sclera anicteric, no conjunctival injection. Neck supple without JVD, lymphadenopathy, or bruit. Respiratory: clear Cardiovascular: Regular rate and rhythm, normal S1-S2 upon auscultation. No murmurs, rubs, or clicks. PMI is nondisplaced, capillary refill less than 3 second. Abdomen: Soft, round, no pulsatile masses, nondistended and nontender. No rebound, no guarding. No CVA tenderness, no hepatosplenomegaly. Bowel sounds present to all four quadrants. No high pitch or tinkling sounds, resonant to percussion. Extremities: No cyanosis, clubbing, or edema present. Pulses are palpable 2/2. Active ROM to all four extremities. Neuro: Alert and orientated x 4. PERRLA. Cranial nerves 2-12 intact without focal deficit. Skin: Warm, dry, and intact, without rash, erythema, or lesion. Psych: pleasant, cooperative, normal speech, normal affect, no hallucinations, no dysarthia Const: General: comfortable DS: Data Data Completed and Pending Completed studies during hospitalization: multiple chest xrays Labs on day of discharge: Labs from last 24 hours 12/04/24 07:30 Sodium 139 Potassium 3.6 Chloride 103 Carbon Dioxide 29 Anion Gap 7 BUN 51 H Creatinine 2.81 H Estim Creat Clear Calc 14 Estimated GFR 16 L Glucose 110 Calcium 8.5 Total Bilirubin 0.7 AST 15 ALT 8 Alkaline Phosphatase 72 Total Protein 6.0 L Albumin 3.4 L Discharge Plan Discharge Attending physician on discharge: Yaya Mcmahan Discharging Clinician: Hillary Frederick Patient Disposition: [place] [facility] Home/[facility] Living Activity: february shower Diet: heart healthy Discharge Instructions: you were admitted for chf exacerbation. SOB and swelling improved after IV lasix. Please f/u with PCP and cardiology within 1-2 weeks after discharge Patient Instructions: Antibiotic Form, Heart Failure (GEN) Patient Language: German Stand Alone Forms: General Discharge Information Follow-up/Referrals: Quinten Whitlock MD [Primary Care Provider] - 1 Week Devin Giles MD [Physician] - 2 Weeks (f/u with your sales support consultant if you need a new one- here is [facility] number) Discharge Medications: Continued carvedilol 12.5 mg tablet 12.5 mg PO Q12H potassium chloride [Klor-Con M20] 20 mEq tablet,ER particles/crystals 20 meq PO .COMPLEX Patient Comments: every other day Rx Instructions: 20 mEq orally every other day; does 20mEq every other day Restasis MultiDose 0.05 % drops 1 drop EACH EYE DAILY ezetimibe 10 mg tablet 10 mg PO DAILY Qty: 90 3RF acetaminophen [Tylenol Extra Strength] 500 mg tablet 500 mg PO Q6H PRN (Reason: pain) diltiazem HCl 240 mg capsule,extended release 24hr 240 mg PO DAILY Qty: 30 0RF ferrous sulfate 27 mg iron Tablet 27 mg PO USEASDIRECTD Rx Instructions: takes every other day Vitamin B-12 50 mcg tablet 100 mcg PO DAILY furosemide 40 mg Tablet 40 mg PO DAILY Qty: 90 0RF (DME) FreeStyle Test Strip See Rx Instructions .Route Qty: 100 3RF Rx Instructions: test qam fasting (DME) lancets [FreeStyle Lancets] 28 gauge misc See Rx Instructions .Route Qty: 100 3RF Rx Instructions: test qam fasting hydralazine 25 mg tablet 25 mg PO BID Qty: 180 1RF Date of admission: 12/01/24 09:04 Primary Care Provider: Quinten Whitlock Admitting Provider: Navid Oden Attending physician on admission: Nvaid Oden Condition: Stable Quality VTE Prophylaxis VTE prophylaxis: mechanical ordered and pharmacologic ordered Hospitalist MIPS Heart Failure (Exclusion) Patient has history of Heart Transplant or Left Ventricular Assistive Device?: No IF YES, STOP HERE Heart Failure (Qualifier) Patient has current or prior documentation of LVEF less than or equal to 40%, or mod/servere depressed LVSF?: No IF NO, STOP HERE
--- NOTE | 2024-12-04 15:39 | HOMEO2EVAL ---
Evaluation was performed at [facility] Home Oxygen Evaluation RC: Home Oxygen (O2) Evaluation Start: 12/04/24 13:47 Freq: ONCE Status: Active Protocol: RPE Activity Type Activity Date Activity User E-sign Co-sign Detail Recorded Client Recorded Date Recorded By Document 12/04/24 15:00 LOGAN [email or web address] 12/04/24 15:38 LOGAN Document 12/04/24 15:01 LOGAN [email or web address] 12/04/24 15:38 LOGAN Document 12/04/24 15:02 LOGAN [email or web address] 12/04/24 15:38 LOGAN Document 12/04/24 15:05 LOGAN [email or web address] 12/04/24 15:38 LOGAN Document 12/04/24 15:15 LOGAN [email or web address] 12/04/24 15:38 LOGAN 12/04/24 12/04/24 12/04/24 15:00 15:01 15:02 Home O2 Evaluation [Oxygen] -Test Phase Resting Resting Resting -Oxygen Delivery Room Air Nasal Cannula Nasal Cannula -Oxygen Flow Rate (L/min) 1 2 [Pulse Oximetry] -Pulse Oximetry (90-100 %) 87 L 88 L 91 [Pulse Rate] -Pulse Rate (60-100 beats/min) 78 [Exercise] -Ambulation Distance (feet) -Ambulation Distance (meters) [Comments] -Home Oxygen Evaluation Comments [Charges] -Evaluation Charges O2 Evaluation by Pulmonary 12/04/24 12/04/24 15:05 15:15 Home O2 Evaluation [Oxygen] -Test Phase Exercise Resting -Oxygen Delivery Nasal Cannula Nasal Cannula -Oxygen Flow Rate (L/min) 2 2 [Pulse Oximetry] -Pulse Oximetry (90-100 %) 94 92 [Pulse Rate] -Pulse Rate (60-100 beats/min) 108 H 89 [Exercise] -Ambulation Distance (feet) 150 -Ambulation Distance (meters) 45.71 [Comments] -Home Oxygen Evaluation Comments Pt requires 2 liters home O2 with rest and activity. [Charges] -Evaluation Charges
--- NOTE | 2024-12-04 15:40 | PCRCNOTE ---
Home O2 eval completed. Pt requires 2 liters at rest and with activity, she has [facility] and all home O2 equipment needed for home and portable O2. [facility] is DME
== END 2024-12-04 16:40 | DRG 291 ==
LOC: ANHED 10:40 → ANH3MEDSUR 12:23
PROVIDERS: Internal Medicine; Nurse Practitioner Gerontology; Admitting Provider Hospitalist; Emergency Provider Emergency Medicine; PCP Family Medicine; Visit Provider Nurse Practitioner
DX: I13.0 Hypertensive heart and chronic kidney disease with heart failure and stage 1 through stage 4 chronic kidney disease, or unspecified chronic kidney disease (principal); I50.33 Acute on chronic diastolic (congestive) heart failure; N18.4 Chronic kidney disease, stage 4 (severe); I48.20 Chronic atrial fibrillation, unspecified; I25.10 Atherosclerotic heart disease of native coronary artery without angina pectoris; I34.0 Nonrheumatic mitral (valve) insufficiency; N25.0 Renal osteodystrophy; E11.22 Type 2 diabetes mellitus with diabetic chronic kidney disease; E78.5 Hyperlipidemia, unspecified; E63.1 Imbalance of constituents of food intake; J44.9 Chronic obstructive pulmonary disease, unspecified; K21.9 Gastro-esophageal reflux disease without esophagitis; K57.30 Diverticulosis of large intestine without perforation or abscess without bleeding; M19.90 Unspecified osteoarthritis, unspecified site; F41.9 Anxiety disorder, unspecified; Z20.822 Contact with and (suspected) exposure to COVID-19; I25.2 Old myocardial infarction; Z79.4 Long term (current) use of insulin; Z87.891 Personal history of nicotine dependence
CPT/HCPCS: 36415; 71045; 80048; 80053; 82948; 83735; 83880; 85025; 87637; 93005; 94618; 94640; 96374; 99291; A9270; G0378; J1650; J1940

== ENCOUNTER 2025-01-18 17:39 | Emergency (ER) | payer MEDICARE, SELFPAY ==
[2025-01-18 17:47] VITALS: BP 163/91; PULSE 74; RESP 16; TEMP 36.4; O2SAT 95
--- NOTE | 2025-01-18 18:02 | ED_ITS ---
HPI - URI/Sore Throat General Chief Complaint: Ear Stated Complaint: Ear Pain Time Seen by Provider: 01/18/25 17:49 Source: patient and RN notes reviewed Mode of arrival: ambulatory Limitations: no limitations History of Present Illness HPI Narrative: Patient presents today from her assisted living center complaining of a 2 day history of postnasal drip, rhinorrhea, and left ear pain that started yesterday. Denies decreased hearing or drainage. Denies cough or fever. States that she uses Afrin daily for congestion. History of seasonal allergies, but has not started any [id number] medication. States she has some Benadryl at but access to no other medications as she does not drive. Related Data Home Medications ?Medication ?Instructions ?Recorded ?Confirmed ?Last Taken ?Type cyclosporine 0.05 % eye drops 1 drop ophthalmic (eye) DAILY 10/24/19 01/18/25 11/29/24 History (Restasis MultiDose) ferrous sulfate 27 mg iron tablet 27 mg PO USEASDIRECTD 12/09/23 01/18/25 03/02/24 History acetaminophen 500 mg tablet 500 mg PO Q6H PRN pain 06/22/24 01/18/25 Unknown History (Tylenol Extra Strength) carvedilol 12.5 mg tablet 12.5 mg PO Q12H 06/22/24 01/18/25 11/29/24 History cyanocobalamin (vitamin B-12) 50 100 mcg PO DAILY 06/22/24 01/18/25 Unknown History mcg tablet (Vitamin B-12) Allergies Allergy/AdvReac Type Severity Reaction Status Date / Time amiodarone Allergy Severe Unresponsiv Verified 01/18/25 17:49 e Review of Systems Review of Systems: CONSTITUTIONAL: Denies body aches, fever, chills, or sweats. EYES: Denies visual changes, redness, or discharge. ENT: Denies sore throat. + left ear pain, congestion, postnasal drip, rhinorrhea CARDIOVASCULAR: Denies chest pain, palpitations, or edema. RESPIRATORY: Denies cough or dyspnea. GASTROINTESTINAL: Denies abdominal pain, nausea, vomiting, or diarrhea. GENITOURINARY: Denies dysuria or hematuria. SKIN: Denies rash, itching, or wounds. MUSCULOSKELETAL: Denies back pain, joint pain, or myalgia. NEUROLOGIC: Denies headache, numbness, tingling, or weakness. PSYCH: Denies depression or anxiety. 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 A-fib Paroxysmal Myocardial infarction Seasonal allergies Hypertensive heart disease with heart failure Surgical History Surgical History Intertrochanteric fracture of right hip ORIF with trochanteric nail September 13, 2023 H/O: hysterectomy H/O cardiac catheterization H/O maze procedure H/O mitral valve repair With a ring Family History Family History Mother Family history of diabetes mellitus in first degree relative Family history of lung cancer Father Family history of coronary artery disease Hypertension Sibling Family history of diabetes mellitus in first degree relative Social History Social History Social History: She has with her for over 50 years. She desires to be full code. She smoked half a pack a cigarettes per day for 40 years quit March 14, 2014. No illicit drug use but does occasionally drink alcohol. 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 She has 2 children and 2 grandchildren. Her has dementia and she nominated her daughter Debbie to be the one to make medical decisions for her if she is unable. Smoking packs per day: 0.5 Smoking cigarettes per day: 10.0 Years smoked: 40 Smoking pack-years: 20.00 Smoking status: Former smoker Second hand tobacco smoke exposure: Yes Additional smoking assessment comments: Occasional smoker for 40 years Alcohol intake: never Drinks per week: 0 Alcohol use details: once a year Substance use: never Substance use type: does not use Do You Feel Safe in your Home?: Yes Lack of Transportation: No Lack of Food: Never True Current Housing: I Have Housing Concerned About Future Housing: No Difficulty Paying Gas/Electric Bills: No Difficulty Paying for Meds: No Currently Unemployed: No Education: Don't Know Difficulty w/ Childcare or Family Care: No Living arrangements: assisted living Additional living arrangements comments: [place] Occupation/Education: retired Gender identity (if verbalized by the patient): Female Sexual Orientation (if Verbalized by the Patient): Straight or Heterosexual Spiritual care concerns: No Agree to blood products: Yes Comments At time of signature, I have reviewed and agree with nursing past medical, surgical, social and family history unless otherwise noted. Please see nursing chart for further information. There is no relevant family history pertinent to the presenting complaint Exam Narrative: GENERAL: Well-appearing, well-nourished, and in no acute distress. HEAD: Normocephalic, atraumatic. EYES: EOMI. No redness or drainage. Conjunctivae normal. ENT: Mucous membranes pink and moist. Nares mildly congested with rhinorrhea. Right TM normal. Left TM with mild effusion without evidence of bacterial infection Throat normal. Uvula midline. NECK: Normal AROM. Supple. No lymphadenopathy. CHEST: No respiratory distress. Clear to auscultation. HEART: Regular rate and rhythm. No murmur appreciated. EXTREMITIES: Normal range of motion. No edema. SKIN: Warm, dry, no rash. Capillary refill normal. Normal skin turgor. NEURO: No focal deficits. Alert and oriented x3. Gait steady with walker. PSYCH: Normal affect. No signs of depression or anxiety. Course Course Level of Care: Express Care Visit Vital Signs Vital signs: Vital Signs Temperature 97.5 F L 01/18/25 17:47 Pulse Rate 74 01/18/25 17:47 Respiratory Rate 16 01/18/25 17:47 Blood Pressure 163/91 H 01/18/25 17:47 Pulse Oximetry 95 01/18/25 17:47 Oxygen Delivery Room Air 01/18/25 17:47 Temperature 97.5 F L 01/18/25 17:47 Pulse Rate 74 01/18/25 17:47 Respiratory Rate 16 01/18/25 17:47 Blood Pressure 163/91 H 01/18/25 17:47 Pulse Oximetry 95 01/18/25 17:47 Oxygen Delivery Room Air 01/18/25 17:47 Reviewed MDM - URI/Sore Throat MDM Narrative Medical decision making narrative: Patient's symptoms are likely URI versus allergic rhinitis. Prescription for short course of Zyrtec sent to pharmacy. Discussed long-term use of Afrin as well. Anticipatory guidance given. Differential Diagnosis Differential diagnosis: Likely upper respiratory infection, otitis media, sinusitis, viral infection and other (Allergic rhinitis) Critical Care Time Critical Care Time Critical Care Time: No Discharge Plan Discharge Clinical Impression: Upper respiratory infection Qualifiers: URI type: unspecified URI Qualified Code(s): J06.9 - Acute upper respiratory infection, unspecified Patient Disposition: Home, Self-Care Condition: Stable Instructions: Upper Respiratory Infection (DC) Additional Instructions: Your symptoms are likely due to a viral illness, which is not treated with antibiotics. Virus symptoms can last for up to 7-10days. Take Tylenol for pain or fever. Continue your nasal spray. Try some Zyrtec to help dry up your postnasal drainage. Rest and stay hydrated. Follow up with your PCP in 7 days if symptoms are not improving. Go to the ER immediately if you develop shortness of breath, difficulty swallowing, development of new fever greater than 100.3, or any other concerning symptoms. Your blood pressure was elevated above 120/80 today at Urgent Care. This puts you above the threshold for follow up. Please schedule a followup visit with your personal physician as soon as possible, for further evaluation and treatment. Even blood pressure exceeding 120/80 may indicate pre-hypertension. Patient Language: Cook Islander Prescriptions: New cetirizine 10 mg tablet 10 mg PO DAILY Qty: 20 0RF No Action carvedilol 12.5 mg tablet 12.5 mg PO Q12H Restasis MultiDose 0.05 % drops 1 drop EACH EYE DAILY ezetimibe 10 mg tablet 10 mg PO DAILY Qty: 90 3RF acetaminophen [Tylenol Extra Strength] 500 mg tablet 500 mg PO Q6H PRN (Reason: pain) sertraline 25 mg tablet 25 mg PO DAILY Qty: 60 2RF potassium chloride [Klor-Con M20] 20 mEq tablet,ER particles/crystals 20 meq PO .COMPLEX Qty: 45 1RF Rx Instructions: 20 mEq orally every other day; does 20mEq every other day Trelesimon Ellipta 100-62.5-25 mcg blister with device 1 inh inhalation DAILY Qty: 60 0RF albuterol sulfate 0.63 mg/3 mL solution for nebulization 0.63 mg inhalation Q4-6H PRN (Reason: shortness of breath or wheezing) Qty: 75 0RF clonazepam 0.5 mg tablet 0.5 mg PO QHS PRN (Reason: anxiety) Qty: 30 0RF diltiazem HCl 240 mg capsule,extended release 24hr 240 mg PO DAILY Qty: 30 0RF ferrous sulfate 27 mg iron Tablet 27 mg PO USEASDIRECTD Rx Instructions: takes every other day Vitamin B-12 50 mcg tablet 100 mcg PO DAILY furosemide 40 mg Tablet 40 mg PO DAILY Qty: 90 0RF (DME) FreeStyle Test Strip See Rx Instructions .Route Qty: 100 3RF Rx Instructions: test qam fasting (DME) lancets [FreeStyle Lancets] 28 gauge misc See Rx Instructions .Route Qty: 100 3RF Rx Instructions: test qam fasting hydralazine 25 mg tablet 25 mg PO BID Qty: 180 1RF Follow-up/Referrals: PHYSICIAN,REEL CART OPERATOR [Primary Care Provider] - Time of Disposition: 18:00
== END 2025-01-18 18:05 | disposition home or self-care (01) ==
PROVIDERS: Emergency Provider Nurse Practitioner
DX: J06.9 Acute upper respiratory infection, unspecified (principal); Z87.891 Personal history of nicotine dependence; I13.0 Hypertensive heart and chronic kidney disease with heart failure and stage 1 through stage 4 chronic kidney disease, or unspecified chronic kidney disease; E11.22 Type 2 diabetes mellitus with diabetic chronic kidney disease; N18.4 Chronic kidney disease, stage 4 (severe); I50.32 Chronic diastolic (congestive) heart failure; D63.1 Anemia in chronic kidney disease; E78.5 Hyperlipidemia, unspecified; J44.9 Chronic obstructive pulmonary disease, unspecified; I25.10 Atherosclerotic heart disease of native coronary artery without angina pectoris; E11.42 Type 2 diabetes mellitus with diabetic polyneuropathy; M19.90 Unspecified osteoarthritis, unspecified site; K21.9 Gastro-esophageal reflux disease without esophagitis; I48.0 Paroxysmal atrial fibrillation; I25.2 Old myocardial infarction; F41.9 Anxiety disorder, unspecified; N25.0 Renal osteodystrophy
CPT/HCPCS: 99213; G0463

== ENCOUNTER 2025-03-07 07:33 | Inpatient (IN) | payer MEDICARE, SELFPAY ==
[2025-03-07] VITALS (26 sets, daily range): BP systolic 129–181; BP diastolic 71–86; PULSE 67–84; RESP 14–18; TEMP 36.4; O2SAT 76–100; BMI 24.3
--- NOTE | ~2025-03-07 | MR_ITS ---
EXAMINATION: MR MRCP wo/w con/w 3D wo ind DATE: 03/08/2025 12:50 INDICATION: Dilated bile duct TECHNIQUE: Magnetic resonance imaging (MRI) of the abdomen was performed without and with 14 mL Multi gagan intravenous contrast. Sequences included coronal T2-weighted SS-FSE, coronal T2-weighted FS SS- FSE, coronal T2-weighted FS FIESTA, axial T2-weighted FS FIESTA, axial T2-weighted FIESTA, sagittal T 2-weighted SS-FSE, axial T1-weighted dual-echo FSPGR, axial T2-weighted SS-FSE, axial T1-weighted LAV A, axial T2-weighted STIR FSE. Thick-slab T2-weighted FRFSE-XL images were obtained for magnetic reso nance cholangiopancreatography (MRCP). Rotating maximum intensity projection 3-D reconstructions of t he volumetric data were created by the technologist. Postcontrast sequences included a time course of axial T1-weighted LAVA. COMPARISON: CT dated 03/07/2025 FINDINGS: ABDOMEN MRI: Cardia megaly. Magnetic field artifact associated with a likely for mitral valve repair. No pericardi al effusion. Moderate-sized sliding-type hiatal hernia. Small bilateral posterior layering pleural ef fusions with dependent atelectasis in bilateral lower lobes. There are a few subcentimeter T2 hyperin tense nonenhancing hepatic cysts. Spleen and bilateral adrenal glands are normal. There are bilateral renal cysts, the largest the right kidney measuring 6.8 cm maximal diameter. A few of the cysts in b oth kidneys are T2 hypointense, T1 hyperintense without enhancement consistent with complex, proteina ceous/hemorrhagic cysts. There are at least 6 T2 hyperintense nonenhancing cystic lesions in the body and tail of the pancreas, the largest measuring 12 mm and which is subtly visible on prior CT dated 01/29/2019. There is prominent dilation of the gallbladder which measures up to 6.2 x 5.5 cm in terrance l diameter. There is a 1.7 x 1.5 cm simple appearing cystic lesion without evident enhancing componen t situated between the fundus of the gallbladder and the liver. Numerous colonic diverticula without adjacent inflammatory stranding to suggest diverticulitis. No bowel obstruction. Minimal amount of pe rihepatic and pericholecystic fluid with additional small amount of ascites in the deep pelvis. 2.6 c m left adnexal cyst. No pathologically enlarged abdominal or upper pelvic lymphadenopathy. 15 degrees lumbar levoscoliosis with severe spondylosis. ABDOMEN MRCP: There is mild central intrahepatic biliary ductal dilation. The common hepatic duct is dilated to 1.7 cm and the common bile duct is dilated to 1.5 cm. The common bile duct tapers distally at the ampull a with no evident obstructing stone or mass. IMPRESSION: 1. Prominent distention of the gallbladder, mild central intrahepatic ductal or ductal dilation and m ore prominent dilation of the common hepatic and bile ducts to 1.7 cm and 1.5 cm respectively with th e latter tapering smoothly at the ampulla with no evident cholelithiasis/choledocholithiasis or obstr ucting mass. 2. Pleural effusions with mild dependent compressive atelectasis in both lower lobes. 3. Cardiomegaly. 4. Moderate-sized sliding-type hiatal hernia. 5. Bilateral simple and complex proteinaceous/hemorrhagic renal cyst. 6. Several cystic lesions in the body and tail the pancreas measuring up to 11 mm. The differential d iagnosis includes pseudocyst, intraductal papillary mucinous neoplasm (IPMN), mucinous cystic neoplas m (MCN), and the less common serous cystadenoma and neuroendocrine tumor. Correlate for history of pa ncreatitis. Given patient age and the stability since 2019 of the largest cystic lesion, further foll ow-up is likely unnecessary. 7. 1.7 x 1.5 cm simple appearing cystic lesion situated between the fundus of the gallbladder and the liver with differential including exophytic hepatic cyst or gallbladder cyst. No evident solid soft tissue component and this is of doubtful clinical significance. 8. Extensive colonic diverticulosis. 9. Small amount of ascites. Reviewed, dictated and finalized at location A. IMPRESSION: 1. Prominent distention of the gallbladder, mild central intrahepatic ductal or ductal dilation and more prominent dilation of the common hepatic and bile bisi ts to 1.7 cm and 1.5 cm respectively with the latter tapering smoothly at the a mpulla with no evident cholelithiasis/choledocholithiasis or obstructing mass. 2. Pleural effusions with mild dependent compressive atelectasis in both lower lobes. 3. Cardiomegaly. 4. Moderate-sized sliding-type hiatal hernia. 5. Bilateral simple and complex proteinaceous/hemorrhagic renal cyst. 6. Several cystic lesions in the body and tail the pancreas measuring up to 11 mm. The differential diagnosis includes pseudocyst, intraductal papillary mucin ous neoplasm (IPMN), mucinous cystic neoplasm (MCN), and the less common serous cystadenoma and neuroendocrine tumor. Correlate for history of pancreatitis. G iven patient age and the stability since 2019 of the largest cystic lesion, fur ther follow-up is likely unnecessary. 7. 1.7 x 1.5 cm simple appearing cystic lesion situated between the fundus of t he gallbladder and the liver with differential including exophytic hepatic cyst or gallbladder cyst. No evident solid soft tissue component and this is of becca btful clinical significance. 8. Extensive colonic diverticulosis. 9. Small amount of ascites.
--- NOTE | ~2025-03-07 | CT_ITS ---
CT abdomen pelvis wo con Ordering provider: Akbar Ngo MD History: 79 years Female with . epigastric/RUQ pain . Comparison: December 09, 2021 Technique: CT abdomen and pelvis without IV and without oral contrast. Automated exposure control and iterative reconstruction technique were employed. The dose-length product was 241.88 mGy-cm. Findings: VISUALIZED LOWER CHEST: Slight cardiomegaly. Bilateral pleural effusion with adjacent atelectasis. UPPER ABDOMINAL ORGANS: Liver: Hepatomegaly. Dilated CBD measuring 1.4 cm. Gallbladder: Distended with small cystic area adjacent to the liver which may be a cyst measuring 1.8 x 1.5 cm. Spleen: Normal. Stomach/duodenum: Sliding hiatus hernia. Pancreas: Atrophic. Adrenals: Normal. Kidneys: Hyperdense lesion seen in the right kidney upper pole measuring 1.1 cm which may be a mass o r hemorrhagic cyst. Another similar lesion is seen posterior in the right kidney area measuring 2.8 c m. Follow-up and further evaluation advised. Large simple cyst is seen in the right kidney midpole which measures 7.2 x 6 cm. Tiny stone in the right kidney lower pole measuring 4 mm. Small cysts in the left kidney is noted in the lower pole measuring 1.5 cm and 1.7 cm. a small bulge seen in the left kidney midpole which measures 1.6 cm which may be normal variant but a mass cannot be excluded. Follow-up advised. Stone in the left kidney upper pole is also noted measuring 0.5 cm. PELVIC ORGANS: The bladder is underfilled. Left ovarian cyst measuring 2.1 cm is noted. BOWEL AND MESENTERY: Colon: No evidence of diverticulitis. Slightly thickened wall of the sigmoid colon is seen. Evaluatio n for colitis is advised.. Normal appendix. Small Bowel: Normal. No obstruction. Peritoneum/mesentery: No free air or free fluid. No mesenteric lymphadenopathy. RETROPERITONEUM: Mild atheromatous disease of the abdominal aorta. No retroperitoneal lymphadenopat hy. MUSCULOSKELETAL: Superficial soft tissues: Left inguinal hernia with fat and fluid content. Otherwise, The superficial soft tissues are normal. Bones: Age appropriate degenerative changes of the spine. Bilateral hip osteoarthritic changes. Osteo penia of the bones. Postoperative changes in the right hip. IMPRESSION: 1. Bilateral pleural effusion with adjacent atelectasis. 2. Cardiomegaly. 3. Sliding hiatus hernia. 4. No evidence of appendicitis, diverticulitis or intestinal obstruction. 5. Slightly thickened wall of the sigmoid colon. Evaluation for colitis and follow-up advised. 6. Bilateral renal stones with bilateral renal cysts. Hyperdense lesions seen in the right kidney wi th isodense area in the left kidney. Follow-up and further evaluation advised. 7. Distended gallbladder with no definite stones. Dilated CBD measuring 1.4 cm. Evaluation for the s phincter of Oddi is advised. 8. Hepatomegaly. Reviewed, dictated and finalized at location A. IMPRESSION: 1. Bilateral pleural effusion with adjacent atelectasis. 2. Cardiomegaly. 3. Sliding hiatus hernia. 4. No evidence of appendicitis, diverticulitis or intestinal obstruction. 5. Slightly thickened wall of the sigmoid colon. Evaluation for colitis and fo llow-up advised. 6. Bilateral renal stones with bilateral renal cysts. Hyperdense lesions seen in the right kidney with isodense area in the left kidney. Follow-up and furthe r evaluation advised. 7. Distended gallbladder with no definite stones. Dilated CBD measuring 1.4 cm . Evaluation for the sphincter of Oddi is advised. 8. Hepatomegaly.
--- NOTE | ~2025-03-07 | US_ITS ---
RIGHT UPPER QUADRANT ABDOMINAL ULTRASOUND (Doppler ultrasound interrogation techniques used as needed for this exam.) Ordering provider: Akbar Ngo MD History: . pain . Comparison: None. FINDINGS: PANCREAS: Not well demonstrated with normal visualized portions. PORTAL VEIN: Hepatopedal flow demonstrated. LIVER: Normal size and coarse echotexture. No focal hepatic lesions or perihepatic fluid collections are identified. BILIARY DUCTS: No intra or extrahepatic biliary dilation. Common bile duct measures 5 mm in diameter which is normal for patient's age. GALLBLADDER: Distended.. No stones, sludge, or pericholecystic fluid. Wall thickness is 0.35 cm. Nega tive sonographic Rodriguez's sign. Small cystic areas seen between the gallbladder and the liver which may be hepatic cyst measuring 1.6 x 1.8 x 1.2 cm.. RIGHT KIDNEY: Normal size. No hydronephrosis, solid renal mass, renal calculi or perinephric fluid co llections. Large cyst is seen measuring 7.3 x 6.6 x 6.6 cm. FREE FLUID: None visualized within the upper abdomen. Right pleural effusion IMPRESSION: Coarse echogenicity of the liver. Distended gallbladder with no stones. Large cyst in the left kidney . Right pleural effusion. Otherwise, normal right upper quadrant ultrasound. Reviewed, dictated and finalized at location A. IMPRESSION: Coarse echogenicity of the liver. Distended gallbladder with no stones. Large c yst in the left kidney. Right pleural effusion. Otherwise, normal right upper q uadrant ultrasound.
[2025-03-07 07:46] LABS: Basophils Absolute Auto 0.1 K/mm3 (0.0-0.1); Basophils Percent Auto 0.9 % (0.2-1.2); Eosinophils Absolute Auto 0.8 K/mm3 (0-0.3); Eosinophils Percent Auto 9.6 % (0-4.4); Hematocrit 35.8 % (37.0-47.0); Immature Granulocyte Absolute 0.02 K/mm3 (0.00-0.031); Immature Granulocyte Percent A 0.3 % (0-0.5); Lymphocytes Absolute Auto 1.47 K/mm3 (0.9-3.2); Lymphocytes Percent Auto 18.4 % (18.3-44.2); Mean Corpuscular HGB Conc 30.7 g/dl (32-36); Mean Corpuscular Hemoglobin 30.2 pg (26-34); Mean Corpuscular Volume 98.4 fl (80-100); Mean Platelet Volume 10.2 fl (7.4-10.4); Monocytes Absolute Auto 0.8 K/mm3 (0.1-0.6); Monocytes Percent Auto 9.8 % (2.6-8.5); Neutrophils Absolute Auto 4.9 K/mm3 (1.3-6.7); Platelet Count Result 219 k/mm3 (150-375); Red Blood Count 3.64 M/mm3 (4.2-5.4); Red Cell Distribution Width 13.7 % (11.5-14.5)
[2025-03-07] MEDS: ONDANSETRON INJ 4 MG/2 ML VIAL IV PUSH ×3 (07:48→16:19)
[2025-03-07] MEDS: MORPHINE SULFATE (*CRX) 2 MG/ML INJ IV PUSH (07:48)
--- NOTE | 2025-03-07 07:50 | ED.ABDPAIN ---
HPI - Abdominal Pain General Chief Complaint: Abdominal Pain Stated Complaint: Abd pain Time Seen by Provider: 03/07/25 07:38 History of Present Illness HPI narrative: Patient is an 79-year-old female who presents to the ER with right upper quadrant abdominal pain. Ongoing for 5 days. No fevers or chills or sweats. Pain worsened last night. Concerned it is her gallbladder. Associated with nausea but no vomiting. Patient did not take her hypertension medication today. Related Data Home Medications ?Medication ?Instructions ?Recorded ?Confirmed ?Last Taken ?Type cyclosporine 0.05 % eye drops 1 drop ophthalmic (eye) DAILY 10/24/19 03/07/25 11/29/24 History (Restasis MultiDose) acetaminophen 500 mg tablet 500 mg PO Q6H PRN pain 06/22/24 03/07/25 Unknown History (Tylenol Extra Strength) carvedilol 12.5 mg tablet 12.5 mg PO Q12H 06/22/24 03/07/25 11/29/24 History Allergies Allergy/AdvReac Type Severity Reaction Status Date / Time amiodarone Allergy Severe Unresponsiv Verified 03/07/25 07:41 e [facility] Past Medical History Medical History HLD (hyperlipidemia) 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 A-fib Paroxysmal Myocardial infarction Seasonal allergies Hypertensive heart disease with heart failure Surgical History Surgical History Intertrochanteric fracture of right hip ORIF with trochanteric nail September 13, 2023 H/O: hysterectomy H/O cardiac catheterization H/O maze procedure H/O mitral valve repair With a ring Family History Family History Mother Family history of diabetes mellitus in first degree relative Family history of lung cancer Father Family history of coronary artery disease Hypertension Sibling Family history of diabetes mellitus in first degree relative Social History Social History Social History: She has with her for over 50 years. She desires to be full code. She smoked half a pack a cigarettes per day for 40 years quit March 14, 2014. No illicit drug use but does occasionally drink alcohol. 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 She has 2 children and 2 grandchildren. Her has dementia and she nominated her daughter Debbie to be the one to make medical decisions for her if she is unable. Smoking packs per day: 0.5 Smoking cigarettes per day: 10.0 Years smoked: 40 Smoking pack-years: 20.00 Smoking status: Former smoker Second hand tobacco smoke exposure: Yes Additional smoking assessment comments: Occasional smoker for 40 years Alcohol intake: never Drinks per week: 0 Alcohol use details: once a year Substance use: never Substance use type: does not use Do You Feel Safe in your Home?: Yes Lack of Transportation: No Lack of Food: Never True Current Housing: I Have Housing Concerned About Future Housing: No Difficulty Paying Gas/Electric Bills: No Difficulty Paying for Meds: No Currently Unemployed: No Education: Bachelor's Degree Difficulty w/ Childcare or Family Care: No Living arrangements: assisted living Additional living arrangements comments: [place] Occupation/Education: retired Gender identity (if verbalized by the patient): Female Sexual Orientation (if Verbalized by the Patient): Straight or Heterosexual Spiritual care concerns: No Agree to blood products: Yes Exam Narrative: GENERAL: Well-appearing, well-nourished, and in no acute distress. HEAD: Normocephalic, atraumatic. ENT: Mucous membranes moist. CHEST: Clear to auscultation. No respiratory distress. HEART: Regular rate and rhythm. Normal peripheral pulses. ABDOMEN: Soft, moderate epigastric tenderness with palpation, guarding noted, nondistended. EXTREMITIES: Normal range of motion. No edema. SKIN: Warm, dry, no rash. NEURO: Alert and oriented x3. PSYCH: Normal mood and affect. Course Course Emergency Course: Patient received 2 mg morphine became hypoxic so oxygen was placed on her. Still having nausea so repeat antiemetics provided. GI consulted for dilated common bile duct and distended gallbladder. Will require MRCP. Patient aware of treatment plan verbalized agreement. Vital Signs Vital signs: Vital Signs Temperature 97.6 F 03/07/25 07:35 Pulse Rate 72 03/07/25 07:35 Respiratory Rate 16 03/07/25 07:35 Blood Pressure 181/86 H 03/07/25 07:35 Pulse Oximetry 93 03/07/25 07:35 Oxygen Delivery Room Air 03/07/25 07:35 Temperature 97.5 F L 03/07/25 15:30 Pulse Rate 78 03/07/25 15:30 Respiratory Rate 14 03/07/25 15:30 Blood Pressure 139/72 03/07/25 15:30 Pulse Oximetry 100 03/07/25 15:30 Oxygen Delivery Nasal Cannula 03/07/25 12:14 Oxygen Flow Rate 3 03/07/25 12:14 MDM - Abdominal Pain Lab Data 03/07/25 07:42 03/07/25 07:42 Labs: Lab Results 03/07/25 03/07/25 Range/Units 07:42 08:20 WBC 8.0 (4.5-10.0) K/mm3 RBC 3.64 L (4.2-5.4) M/mm3 Hgb 11.0 L (12.0-15.0) g/dL Hct 35.8 L (37.0-47.0) % MCV 98.4 (80-100) fl MCH 30.2 (26-34) pg MCHC 30.7 L (32-36) g/dl RDW 13.7 (11.5-14.5) % Plt Count 219 (150-375) k/mm3 MPV 10.2 (7.4-10.4) fl Immature Gran % (Auto) 0.3 (0-0.5) % Neut % (Auto) 61.0 (45.5-73.1) % Lymph % (Auto) 18.4 (18.3-44.2) % [place] % (Auto) 9.8 H (2.6-8.5) % Eos % (Auto) 9.6 H (0-4.4) % Baso % (Auto) 0.9 (0.2-1.2) % Lymph # (Auto) 1.47 (0.9-3.2) K/mm3 [place] # (Auto) 0.8 H (0.1-0.6) K/mm3 Eos # (Auto) 0.8 H (0-0.3) K/mm3 Baso # (Auto) 0.1 (0.0-0.1) K/mm3 Abs Immat Gran (auto) 0.02 (0.00-0.031) K/mm3 Absolute Neuts (auto) 4.9 (1.3-6.7) K/mm3 Absolute Nucleated RBC 0.000 (0.0-0.012) K/mm3 Nucleated RBC % 0.0 (0.0-0.2) % Sodium 141 (137-145) mmol/L Potassium 3.6 (3.4-5.0) mmol/L Chloride 106 (98-107) mmol/L Carbon Dioxide 26 (22-30) mmol/L Anion Gap 9 (4-12) mmol/L BUN 45 H (7-17) mg/dL Creatinine 3.12 H (0.7-1.0) mg/dL Estim Creat Clear Calc 13 ml/min Estimated GFR 14 L (59 - ) Glucose 138 H (65-110) mg/dL Calcium 8.7 (8.4-10.2) mg/dL Total Bilirubin 0.7 (0.2-1.3) mg/dL AST 19 (14-36) U/L ALT 11 (6-35) U/L Alkaline Phosphatase 80 (38-126) U/L Total Protein 7.0 (6.3-8.2) g/dL Albumin 4.0 (3.5-5.1) g/dL Lipase 61 (23-300) U/L Urine Color Yellow (Yellow) Urine Appearance Clear (Clear) Urine pH 6.5 (5.0-9.0) Ur Specific [place] 1.015 (1.001-1.035) Urine Protein 4+ H (Negative) mg/dL Urine Glucose (UA) Trace H (Negative) mg/dL Urine Ketones Negative (Negative) mg/dL Ur Blood (Man) Trace (Negative) Urine Nitrate Negative (Negative) Urine Bilirubin Negative (Negative) Urine Urobilinogen 1.0 (<2.0) mg/dL Leukocyte Esterase Rfl Negative (Negative) HERNAN/UL Urine RBC 21-50 H (0-2) /hpf Urine WBC 0-5 (0-3) /hpf Ur Squamous Epith Cells None seen (Few) /hpf Urine Bacteria None seen /hpf Urine Casts 3-5 Imaging Data Radiologist's impression: ITS Impressions Upper Quadrant Ultrasound 03/07/25 08:25 IMPRESSION: Coarse echogenicity of the liver. Distended gallbladder with no stones. Large cyst in the left kidney. Right pleural effusion. Otherwise, normal right upper quadrant ultrasound. Abdomen/Pelvis CT 03/07/25 08:58 IMPRESSION: 1. Bilateral pleural effusion with adjacent atelectasis. 2. Cardiomegaly. 3. Sliding hiatus hernia. 4. No evidence of appendicitis, diverticulitis or intestinal obstruction. 5. Slightly thickened wall of the sigmoid colon. Evaluation for colitis and follow-up advised. 6. Bilateral renal stones with bilateral renal cysts. Hyperdense lesions seen in the right kidney with isodense area in the left kidney. Follow-up and further evaluation advised. 7. Distended gallbladder with no definite stones. Dilated CBD measuring 1.4 cm. Evaluation for the sphincter of Oddi is advised. 8. Hepatomegaly. Discharge Plan Discharge Clinical Impression: Abdominal pain, acute, right upper quadrant, Common bile duct dilatation Patient Disposition: Still a Patient Condition: Stable
[2025-03-07 07:56] LABS: Alanine Aminotransferase 11 U/L (6-35); Alkaline Phosphatase 80 U/L (38-126); Anion Gap 9 mmol/L (4-12); Aspartate Amino Transferase 19 U/L (14-36); Bilirubin,Total 0.7 mg/dL (0.2-1.3); Blood Urea Nitrogen 45 mg/dL (7-17); Calcium 8.7 mg/dL (8.4-10.2); Carbon Dioxide 26 mmol/L (22-30); Chloride 106 mmol/L (98-107); Estimated CRCL calculation 13 ml/min; Estimated Glomerular Filt Rate 14; Glucose 138 mg/dL (65-110); Lipase 61 U/L (23-300); Potassium 3.6 mmol/L (3.4-5.0); Sodium 141 mmol/L (137-145)
[2025-03-07 08:30] LABS: Add Urine Microscopic? YES; Appearance Urine Clear (Clear); Bacteria Urine None Seen /hpf; Bilirubin Urine Negative (Negative); Blood Urine Trace (Negative); Color Urine Yellow (Yellow); Glucose Urine UA Trace mg/dL (Negative); Ketones Urine Negative (Negative); Leukocyte Esterase Ur Negative LEU/UL (Negative); Nitrate Urine Negative (Negative); Protein Urine 4+ mg/dL (Negative); RBC Urine 21-50 /hpf (0-2); Specific Grav Ur 1.015 (1.001-1.035); Squamous Epithelial Cell Urine None Seen /hpf (Few); WBC Urine 0-5 /hpf (0-3); pH Urine 6.5 (5.0-9.0)
--- OUTSIDE RECORDS SUMMARY | 2025-03-07 11:54 | XMS_ITS | Clinical Summary ---
Author Organization [facility] Address [address] [place] [address] Care Team Providers Care Vat Packer Name Role Phone Unavailable Primary Care Provider Unavailabl e Medications cetirizine (ZyrTEC) 10 mg tablet Take 1 Tablet (10 mg) by mouth daily. 20 Tablet 01/18/2025 Active Encounters Date Type Department Care Team Description 03/06/2025 External Device Data [facility] Provider, Abstract 01/23/2025 External Device Data [facility] Provider, Abstract 01/23/2025 External Device Data [facility] Provider, Abstract 01/23/2025 External Device Data [facility] Provider, Abstract from Last 3 Months Social History Tobacco Use Types Packs/Day Years Used Date Smoking Tobacco: Never Assessed Comments Unknown Sex and Gender Information Value Date Recorded Sex Assigned at Not on file Legal Sex Female 6:04 PM CDT Gender Identity Not on file Sexual Orientation Not on file Plan of Treatment Health Maintenance Due Date Last Done Comments DTAP/TDAP/TD VACCINES (1 - Tdap) 1963 PNEUMOCOCCAL VACCINE 50+ YEARS (1 of 1 - PCV) 09/29/19 94 ZOSTER VACCINE (1 of 2) 1994 OSTEOPOROSIS SCREENING 2009 RSV VACCINE (60+ or ) (1 - 1-dose 75+ series) 2019 INFLUENZA VACCINE (#1) 2024 Insurance RX [employer] (INTERNAL) [facility]
--- OUTSIDE RECORDS SUMMARY | 2025-03-07 11:54 | XMS_ITS | Encounter Summary ---
Author Organization [facility] Address [address] [place] [address] Care Team Providers Care Peg Driver Name Role Phone Unavailable Primary Care Provider Unavailabl e Encounter Details Date Type Department Care Team (Late st Contact Info) Description 03/06/2025 External Device Data [facility] Provider, Abstract NO ADDRESS ON FILE Social History Tobacco Use Types Packs/Day Years Used Date Smoking Tobacco: Never Assessed Comments Unknown Sex and Gender Information Value Date Recorded Sex Assigned at Not on file Legal Sex Female 6:04 PM CDT Gender Identity Not on file Sexual Orientation Not on file documented as of this encounter Plan of Treatment Not on file documented as of this encounter Visit Diagnoses Not on filedocumented in this encounter
--- NOTE | 2025-03-07 13:14 | PM.IMHP ---
H&P: HPI History of Present Illness Date/Time: 03/07/25 13:14 Chief Complaint: Abdominal Pain Narrative: 79 y/o F with PMH of CHF, anemia, renal osteodystrophy, CKD stage 4, diabetes, CAD, paroxysmal AFib, [place], and COPD presents here with abdominal pain. The patient presents here via EMS from [place] ([facility]) for further evaluation of right upper quadrant abdominal pain. She reports onset this past weekend (approximately 5 days ago). She describes the pain as sharp, radiation into her midback, intermittent, last for up to 12 hours, no aggravated factors, and no alleviating factors. RUQ pain is accompanied by nausea without vomiting and intermittent diaphoresis. She denies constipation, diarrhea, fever, chills, or changes in stool color. She reports no significant abdominal surgical history. Initial VS at presentation: 97.6? F, HR 72, R 16, 181/86, and 93% on RA. ED workup showed: No leukocytosis, hemoglobin 11.0 (previously 10.1 on 12/01/2024), creatinine 3.12 and GFR 14 (previously 2.81 and GFR 16 on 12/04/2024), glucose 138, UA showed 4+ protein/trace glucose/21-50 RBC. US RUQ showed coarse echogenicity of the liver, distended gallbladder with no stones, large cyst in left kidney, right pleural effusion. CT of the abdomen/pelvis showed multiple findings but most significantly for a distended gallbladder with no definite stones and dilated CBD measuring 1.4 cm. Review of Systems Review of Systems: All systems reviewed & are unremarkable except as noted in HPI and below [facility] Past Medical History Medical History HLD (hyperlipidemia) 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 A-fib Paroxysmal Myocardial infarction Seasonal allergies Hypertensive heart disease with heart failure Surgical History Surgical History Intertrochanteric fracture of right hip ORIF with trochanteric nail September 13, 2023 H/O: hysterectomy H/O cardiac catheterization H/O maze procedure H/O mitral valve repair With a ring Family History Family History Mother Family history of diabetes mellitus in first degree relative Family history of lung cancer Father Family history of coronary artery disease Hypertension Sibling Family history of diabetes mellitus in first degree relative Social History Social History Social History: She has with her for over 50 years. She desires to be full code. She smoked half a pack a cigarettes per day for 40 years quit March 14, 2014. No illicit drug use but does occasionally drink alcohol. 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 She has 2 children and 2 grandchildren. Her has dementia and she nominated her daughter Debbie to be the one to make medical decisions for her if she is unable. Smoking packs per day: 0.5 Smoking cigarettes per day: 10.0 Years smoked: 40 Smoking pack-years: 20.00 Smoking status: Former smoker Second hand tobacco smoke exposure: Yes Additional smoking assessment comments: Occasional smoker for 40 years Alcohol intake: never Drinks per week: 0 Alcohol use details: once a year Substance use: never Substance use type: does not use Do You Feel Safe in your Home?: Yes Lack of Transportation: No Lack of Food: Never True Current Housing: I Have Housing Concerned About Future Housing: No Difficulty Paying Gas/Electric Bills: No Difficulty Paying for Meds: No Currently Unemployed: No Education: Bachelor's Degree Difficulty w/ Childcare or Family Care: No Living arrangements: assisted living Additional living arrangements comments: [place] Occupation/Education: retired Gender identity (if verbalized by the patient): Female Sexual Orientation (if Verbalized by the Patient): Straight or Heterosexual Spiritual care concerns: No Agree to blood products: Yes Meds Home Medications and Allergies Home Medications ?Medication ?Instructions ?Recorded ?Confirmed ?Type cyclosporine 0.05 % eye drops 1 drop ophthalmic (eye) DAILY 10/24/19 03/07/25 History (Restasis MultiDose) diltiazem HCl 240 mg 240 mg PO DAILY #30 caps 12/30/19 03/07/25 Rx capsule,extended release 24 hr acetaminophen 500 mg tablet 500 mg PO Q6H PRN pain 06/22/24 03/07/25 History (Tylenol Extra Strength) carvedilol 12.5 mg tablet 12.5 mg PO Q12H 06/22/24 03/07/25 History blood sugar diagnostic (FreeStyle #100 ea 08/30/24 03/07/25 Rx Test strips) lancets 28 gauge (FreeStyle #100 ea 08/30/24 03/07/25 Rx Lancets) ezetimibe 10 mg tablet 10 mg PO DAILY #90 tabs 09/28/24 03/07/25 Rx furosemide 40 mg tablet 40 mg PO DAILY #90 tabs 11/06/24 03/07/25 Rx hydralazine 25 mg tablet 25 mg PO BID #180 tabs 11/08/24 03/07/25 Rx potassium chloride 20 mEq 20 meq PO .COMPLEX #45 tabs 12/15/24 03/07/25 Rx tablet,extended release(part/cryst) (Klor-Con M) cetirizine 10 mg tablet 10 mg PO DAILY #20 tabs 01/18/25 03/07/25 Rx Allergies Allergy/AdvReac Type Severity Reaction Status Date / Time amiodarone Allergy Severe Unresponsiv Verified 03/07/25 07:41 e Vital Signs Vital Signs - 24 hr 03/07/25 07:35 03/07/25 07:55 03/07/25 07:55 Temperature 97.6 F Pulse Rate 72 Respiratory Rate 16 Blood Pressure 181/86 H Pulse Oximetry 93 86 L 76 L Oxygen Delivery Room Air Room Air Nasal Cannula Oxygen Flow Rate 2 03/07/25 07:55 03/07/25 08:01 03/07/25 08:02 Temperature Pulse Rate 74 Respiratory Rate 16 Blood Pressure 167/81 H Pulse Oximetry 96 97 98 Oxygen Delivery Nasal Cannula Oxygen Flow Rate 3 03/07/25 08:15 03/07/25 08:20 03/07/25 08:30 Temperature Pulse Rate Respiratory Rate Blood Pressure 149/71 H 165/85 H Pulse Oximetry 98 96 97 Oxygen Delivery Oxygen Flow Rate 03/07/25 08:31 03/07/25 08:45 03/07/25 09:00 Temperature Pulse Rate Respiratory Rate Blood Pressure Pulse Oximetry 96 98 98 Oxygen Delivery Oxygen Flow Rate 03/07/25 09:15 03/07/25 09:30 03/07/25 09:45 Temperature Pulse Rate Respiratory Rate Blood Pressure Pulse Oximetry 98 96 97 Oxygen Delivery Oxygen Flow Rate 03/07/25 10:00 03/07/25 10:15 03/07/25 10:30 Temperature Pulse Rate Respiratory Rate Blood Pressure Pulse Oximetry 99 96 93 Oxygen Delivery Oxygen Flow Rate 03/07/25 10:45 03/07/25 11:00 03/07/25 11:15 Temperature Pulse Rate Respiratory Rate Blood Pressure Pulse Oximetry 94 94 93 Oxygen Delivery Oxygen Flow Rate 03/07/25 11:30 03/07/25 11:45 03/07/25 12:00 Temperature Pulse Rate Respiratory Rate Blood Pressure Pulse Oximetry 93 93 94 Oxygen Delivery Oxygen Flow Rate 03/07/25 12:14 03/07/25 12:14 03/07/25 12:14 Temperature Pulse Rate 84 Respiratory Rate 16 Blood Pressure 156/78 H Pulse Oximetry 82 L 91 90 Oxygen Delivery Room Air Nasal Cannula Oxygen Flow Rate 3 Exam Const: General: comfortable and no acute distress Other: , female, elderly, nontoxic appearance HENMT: Face/Nose/Sinus: Normal nares present Mouth: Yes moist mucous membranes Eyes: General: appearance normal, both eyes and all related structures Sclera: sclerae normal Pupils: Equal, round and reactive pupils present EOM: EOMs intact bilaterally Resp: Effort & Inspection: normal respiratory effort Auscultation: clear to auscultation bilaterally Cardio: Rate: regular rate Rhythm: regular rhythm Other: S1-S2 present without murmur, rub, ectopy GI: Other: Tenderness in the epigastric and right upper quadrant region. Abdomen remained soft, nondistended, normoactive bowel sounds in all quadrants. Skin: General skin exam: normal color and no rashes or lesions noted Wounds: no wounds Neuro: Speech: normal speech Motor exam (neuro): 5/5 motor strength present throughout Sensory Exam: normal sensation Other: A&O x4 Extrem: General: normal to inspection Psych: Mental Status: mental status grossly normal Affect: normal affect Other: Good insight and judgment, very pleasant H&P: Results Labs Labs: Short CBC 03/07/25 Range/Units 07:42 WBC 8.0 (4.5-10.0) K/mm3 Hgb 11.0 L (12.0-15.0) g/dL Hct 35.8 L (37.0-47.0) % Plt Count 219 (150-375) k/mm3 BMP 03/07/25 07:42 Sodium 141 Potassium 3.6 Chloride 106 Carbon Dioxide 26 BUN 45 H Creatinine 3.12 H Glucose 138 H Calcium 8.7 Liver Function 03/07/25 Range/Units 07:42 Total Bilirubin 0.7 (0.2-1.3) mg/dL AST 19 (14-36) U/L ALT 11 (6-35) U/L Alkaline Phosphatase 80 (38-126) U/L Albumin 4.0 (3.5-5.1) g/dL Urine 03/07/25 Range/Units 08:20 Urine Color Yellow (Yellow) Urine Appearance Clear (Clear) Urine pH 6.5 (5.0-9.0) Ur Specific [place] 1.015 (1.001-1.035) Urine Protein 4+ H (Negative) mg/dL Urine Glucose (UA) Trace H (Negative) mg/dL Assessment and Plan Assessment and plan (1) Right upper quadrant abdominal pain: Code(s): R10.11 - Right upper quadrant pain Status: Acute Assessment and Plan: - US RUQ: Coarse echogenicity of the liver. Distended gallbladder with no stones. Large cyst in the left kidney. Right pleural effusion. Otherwise, normal right upper quadrant ultrasound. - CT abd/pelvis: 1. Bilateral pleural effusion with adjacent atelectasis. 2. Cardiomegaly. 3. Sliding hiatus hernia. 4. No evidence of appendicitis, diverticulitis or intestinal obstruction. 5. Slightly thickened wall of the sigmoid colon. Evaluation for colitis and follow-up advised. 6. Bilateral renal stones with bilateral renal cysts. Hyperdense lesions seen in the right kidney with isodense area in the left kidney. Follow-up and further evaluation advised. 7. Distended gallbladder with no definite stones. Dilated CBD measuring 1.4 cm. Evaluation for the sphincter of Oddi is advised. 8. Hepatomegaly. - NPO for MRCP - GI consulted - analgesics and antiemetic p.r.n. - monitor LFTs - IV fluids: LR at 100 mL/hours x 1L (2) Anemia in CKD (chronic kidney disease): Qualifiers: Chronic kidney disease stage: stage 4 (GFR 15-29) Qualified Code(s): N18.4 - Chronic kidney disease, stage 4 (severe); D63.1 - Anemia in chronic kidney disease Code(s): N18.9 - Chronic kidney disease, unspecified; D63.1 - Anemia in chronic kidney disease Status: Acute Assessment and Plan: - Hgb 11.0, previously 10.1 on 12/01/2024 - Hx of chronic anemia secondary to CKD - transfuse if <7 - trend H&H (3) Chronic kidney disease, stage 4 (severe): Code(s): N18.4 - Chronic kidney disease, stage 4 (severe) Status: Chronic Assessment and Plan: - creatinine 3.12 and GFR 14, previously 2.8 and GFR 16 on 12/04/2024 - trend renal function - trend electrolytes, correct as needed (4) CHF (congestive heart failure): Qualifiers: Heart failure chronicity: chronic Heart failure type: systolic Qualified Code(s): I50.22 - Chronic systolic (congestive) heart failure Code(s): I50.9 - Heart failure, unspecified Status: Acute Assessment and Plan: - most recent echo (10/2024): Estimated EF 50-55%, diastolic function indeterminate. Pulmonary hypertension noted. See report for details. - currently on: Lasix 40 mg daily - monitor I&Os and daily weights - trend renal function (5) A-fib: Qualifiers: Atrial fibrillation type: persistent (not longstanding) Qualified Code(s): I48.19 - Other persistent atrial fibrillation Code(s): I48.91 - Unspecified atrial fibrillation Status: Chronic Assessment and Plan: - continue home medications: Diltiazem (6) Diabetes mellitus: Qualifiers: Chronic kidney disease stage: stage 4 (GFR 15-29) Diabetes mellitus complication detail: with chronic kidney disease Diabetes mellitus complication status: with kidney complications Diabetes mellitus extermination supervisor insulin use: without custodial use Diabetes mellitus type: type 2 Qualified Code(s): E11.22 - Type 2 diabetes mellitus with diabetic chronic kidney disease; N18.4 - Chronic kidney disease, stage 4 (severe) Code(s): E11.9 - Type 2 diabetes mellitus without complications Status: Acute Assessment and Plan: - hypoglycemia protocol - POC blood glucose ACHS - not currently on home medications - correct regimen ordered - low dose TIDWM, based off BMI - A1C 7.3% on 11/15/2024, update (7) HTN (hypertension): Qualifiers: Hypertension type: unspecified Qualified Code(s): I10 - Essential (primary) hypertension Code(s): I10 - Essential (primary) hypertension Status: Chronic Assessment and Plan: - chronic, currently 156/78 - continue home medications: Coreg - monitor Plan Diet: NPO until post procedure -> diabetic GI Prophylaxis: Not currently indicated DVT Prophylaxis: SCDs IV fluids: LR 100 mL/hour x1 L Lines/Tubes: Peripheral IV Code Status: Full code Quality VTE Prophylaxis VTE prophylaxis: mechanical ordered Hospitalist MIPS Advance Care Plan I have confirmed that the patient's Advanced Care Plan is present, code status is documented, or surrogate decision maker is listed in patient medical record.: Yes Medication Reconciliation I have utilized all available resources to obtain, update and review the patients current medications (includes all prescriptions, OTC, herbals, cannabis, and nutritional supplements).: Yes
[2025-03-07] MEDS: LACTATED RINGERS 1,000 ML 100 ML IV CONT (16:23)
[2025-03-07 16:36] LABS: Glucose Point of Care 134 mg/dl (65-105)
--- NOTE | 2025-03-07 16:49 | ADMGEN ---
This patient, Vicente Schofield, was admitted to [facility] Surg Room 314-01. Patient/family oriented to hospital policies and general routines including ID bracelet, bed and alarms, visiting hours, pain management, procedures, bathroom and other care routines, personal items, smoking policy, room service/diet, and visiting hours. Information on how to activate the Rapid Response Team has been discussed. Patient/Family are encouraged to report perceived risks to care and to ask questions if they do not understand what they are told or what they should do.
--- NOTE | 2025-03-07 17:52 | P.CONGI_ITS ---
Assessment and Plan Assessment and plan (1) Abnormal CT scan: Code(s): R93.89 - Abnormal findings on diagnostic imaging of other specified body structures Status: Acute Assessment and Plan: The patient's severe weight loss and imaging demonstrating a markedly dilated common bile duct are concerning, even with normal liver enzymes and bilirubin. An MRCP will be performed tomorrow to thoroughly evaluate the pancreas, pancreatic duct, and distal common bile duct. Depending on the MRCP findings, an EGD with duodenoscope will be considered to inspect the papilla to rule out ampulloma. If these tests are unrevealing, will refer to a tertiary care center for an endoscopic ultrasound. GI Consult Note Consult date/time: 03/07/25 17:52 Reason for consult: Abdominal pain/ abnormal CT scan HPI: Ms. Priscila Schofield, an 79-year-old female, was admitted today due to a five-day worsening of constant, moderate to severe, stabbing right upper quadrant pain that radiates to her epigastric area. Her medical history includes coronary artery disease, atrial fibrillation, Stage 4 chronic kidney disease, COPD, and diabetes. Of note, she also reports feeling depressed and lonely, which she links to a significant 30-pound weight loss over the last year and poor appetite. Upon arrival, her laboratory results were: Hemoglobin 11.0 g/dL, Platelet count 219 K/uL, Creatinine 3.1 mg/dL, AST 19 U/L, ALT 11 U/L, Bilirubin 0.7 mg/dL, Albumin 3.4 g/dL. A right upper quadrant sonogram showed a distended gallbladder without cholelithiasis. CT of the abdomen confirmed gallbladder distention and revealed a dilated common bile duct measuring 1.4 cm. Review of Systems 2 Review of Systems: All systems reviewed & are unremarkable except as noted in HPI and below [facility] Past Medical History Medical History HLD (hyperlipidemia) 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 A-fib Paroxysmal Myocardial infarction Seasonal allergies Hypertensive heart disease with heart failure Surgical History Surgical History Intertrochanteric fracture of right hip ORIF with trochanteric nail September 13, 2023 H/O: hysterectomy H/O cardiac catheterization H/O maze procedure H/O mitral valve repair With a ring Family History Family History Mother Family history of diabetes mellitus in first degree relative Family history of lung cancer Father Family history of coronary artery disease Hypertension Sibling Family history of diabetes mellitus in first degree relative Social History Social History Social History: She has with her for over 50 years. She desires to be full code. She smoked half a pack a cigarettes per day for 40 years quit March 14, 2014. No illicit drug use but does occasionally drink alcohol. 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 She has 2 children and 2 grandchildren. Her has dementia and she nominated her daughter Debbie to be the one to make medical decisions for her if she is unable. Smoking packs per day: 0.5 Smoking cigarettes per day: 10.0 Years smoked: 40 Smoking pack-years: 20.00 Smoking status: Former smoker Second hand tobacco smoke exposure: Yes Additional smoking assessment comments: Occasional smoker for 40 years Alcohol intake: never Drinks per week: 0 Alcohol use details: once a year Substance use: never Substance use type: does not use Do You Feel Safe in your Home?: Yes Lack of Transportation: No Lack of Food: Never True Current Housing: I Have Housing Concerned About Future Housing: No Difficulty Paying Gas/Electric Bills: No Difficulty Paying for Meds: No Currently Unemployed: No Education: Bachelor's Degree Difficulty w/ Childcare or Family Care: No Living arrangements: assisted living Additional living arrangements comments: [place] Occupation/Education: retired Gender identity (if verbalized by the patient): Female Sexual Orientation (if Verbalized by the Patient): Straight or Heterosexual Spiritual care concerns: No Agree to blood products: Yes Meds Home Medications and Allergies Home Medications ?Medication ?Instructions ?Recorded ?Confirmed ?Type cyclosporine 0.05 % eye drops 1 drop ophthalmic (eye) DAILY 10/24/19 03/07/25 History (Restasis MultiDose) diltiazem HCl 240 mg 240 mg PO DAILY #30 caps 12/30/19 03/07/25 Rx capsule,extended release 24 hr acetaminophen 500 mg tablet 500 mg PO Q6H PRN pain 06/22/24 03/07/25 History (Tylenol Extra Strength) carvedilol 12.5 mg tablet 12.5 mg PO Q12H 06/22/24 03/07/25 History blood sugar diagnostic (FreeStyle #100 ea 08/30/24 03/05/25 Rx Test strips) lancets 28 gauge (FreeStyle #100 ea 08/30/24 03/05/25 Rx Lancets) ezetimibe 10 mg tablet 10 mg PO DAILY #90 tabs 09/28/24 03/07/25 Rx furosemide 40 mg tablet 40 mg PO DAILY #90 tabs 11/06/24 03/07/25 Rx hydralazine 25 mg tablet 25 mg PO BID #180 tabs 11/08/24 03/07/25 Rx potassium chloride 20 mEq 20 meq PO .COMPLEX #45 tabs 12/15/24 03/07/25 Rx tablet,extended release(part/cryst) (Klor-Con M) cetirizine 10 mg tablet 10 mg PO DAILY #20 tabs 01/18/25 03/07/25 Rx Allergies Allergy/AdvReac Type Severity Reaction Status Date / Time amiodarone Allergy Severe Unresponsiv Verified 03/07/25 07:41 e Vital Signs Vital Signs - 24 hr 03/07/25 07:35 03/07/25 07:55 03/07/25 07:55 Temperature 97.6 F Pulse Rate 72 Respiratory Rate 16 Blood Pressure 181/86 H Pulse Oximetry 93 86 L 76 L Oxygen Delivery Room Air Room Air Nasal Cannula Oxygen Flow Rate 2 03/07/25 07:55 03/07/25 08:01 03/07/25 08:02 Temperature Pulse Rate 74 Respiratory Rate 16 Blood Pressure 167/81 H Pulse Oximetry 96 97 98 Oxygen Delivery Nasal Cannula Oxygen Flow Rate 3 03/07/25 08:15 03/07/25 08:20 03/07/25 08:30 Temperature Pulse Rate Respiratory Rate Blood Pressure 149/71 H 165/85 H Pulse Oximetry 98 96 97 Oxygen Delivery Oxygen Flow Rate 03/07/25 08:31 03/07/25 08:45 03/07/25 09:00 Temperature Pulse Rate Respiratory Rate Blood Pressure Pulse Oximetry 96 98 98 Oxygen Delivery Oxygen Flow Rate 03/07/25 09:15 03/07/25 09:30 03/07/25 09:45 Temperature Pulse Rate Respiratory Rate Blood Pressure Pulse Oximetry 98 96 97 Oxygen Delivery Oxygen Flow Rate 03/07/25 10:00 03/07/25 10:15 03/07/25 10:30 Temperature Pulse Rate Respiratory Rate Blood Pressure Pulse Oximetry 99 96 93 Oxygen Delivery Oxygen Flow Rate 03/07/25 10:45 03/07/25 11:00 03/07/25 11:15 Temperature Pulse Rate Respiratory Rate Blood Pressure Pulse Oximetry 94 94 93 Oxygen Delivery Oxygen Flow Rate 03/07/25 11:30 03/07/25 11:45 03/07/25 12:00 Temperature Pulse Rate Respiratory Rate Blood Pressure Pulse Oximetry 93 93 94 Oxygen Delivery Oxygen Flow Rate 03/07/25 12:14 03/07/25 12:14 03/07/25 12:14 Temperature Pulse Rate 84 Respiratory Rate 16 Blood Pressure 156/78 H Pulse Oximetry 82 L 91 90 Oxygen Delivery Room Air Nasal Cannula Oxygen Flow Rate 3 03/07/25 15:30 Temperature 97.5 F L Pulse Rate 78 Respiratory Rate 14 Blood Pressure 139/72 Pulse Oximetry 100 Oxygen Delivery Oxygen Flow Rate Exam 2 Narrative: GENERAL: Well-appearing, well-nourished, and in no acute distress. Anicteric HEAD: Normocephalic, atraumatic. ENT: Mucous membranes moist. CHEST: Clear to auscultation. No respiratory distress. HEART: Regular rate and rhythm. Normal peripheral pulses. ABDOMEN: Soft, moderate epigastric tenderness with palpation, guarding noted, nondistended. EXTREMITIES: Normal range of motion. No edema. SKIN: Warm, dry, no rash. NEURO: Alert and oriented x3. PSYCH: Normal mood and affect. Results Labs 03/07/25 07:42 03/07/25 07:42 Labs: Short CBC 03/07/25 Range/Units 07:42 WBC 8.0 (4.5-10.0) K/mm3 Hgb 11.0 L (12.0-15.0) g/dL Hct 35.8 L (37.0-47.0) % Plt Count 219 (150-375) k/mm3 BMP 03/07/25 07:42 Sodium 141 Potassium 3.6 Chloride 106 Carbon Dioxide 26 BUN 45 H Creatinine 3.12 H Glucose 138 H Calcium 8.7 Liver Function 03/07/25 Range/Units 07:42 Total Bilirubin 0.7 (0.2-1.3) mg/dL AST 19 (14-36) U/L ALT 11 (6-35) U/L Alkaline Phosphatase 80 (38-126) U/L Albumin 4.0 (3.5-5.1) g/dL Urine 03/07/25 Range/Units 08:20 Urine Color Yellow (Yellow) Urine Appearance Clear (Clear) Urine pH 6.5 (5.0-9.0) Ur Specific Chuckey 1.015 (1.001-1.035) Urine Protein 4+ H (Negative) mg/dL Urine Glucose (UA) Trace H (Negative) mg/dL
[2025-03-07 20:28] LABS: Glucose Point of Care 109 mg/dl (65-105)
[2025-03-07] MEDS: HYDROcodone/acetaminophen (*CRX) 5-325 MG TABLET 1 TAB PO (21:13)
[2025-03-08 06:00] VITALS: BP 138/65; PULSE 83; RESP 20; TEMP 36.4; O2SAT 96
[2025-03-08 06:16] LABS: Basophils Absolute Auto 0.1 K/mm3 (0.0-0.1); Basophils Percent Auto 0.6 % (0.2-1.2); Eosinophils Absolute Auto 0.1 K/mm3 (0-0.3); Eosinophils Percent Auto 0.8 % (0-4.4); Hematocrit 35.4 % (37.0-47.0); Hemoglobin 10.5 g/dL (12.0-15.0); Immature Granulocyte Absolute 0.02 K/mm3 (0.00-0.031); Immature Granulocyte Percent A 0.3 % (0-0.5); Lymphocytes Absolute Auto 1.13 K/mm3 (0.9-3.2); Lymphocytes Percent Auto 14.5 % (18.3-44.2); Mean Corpuscular HGB Conc 29.7 g/dl (32-36); Mean Corpuscular Hemoglobin 30.3 pg (26-34); Mean Platelet Volume 10.5 fl (7.4-10.4); Monocytes Absolute Auto 0.7 K/mm3 (0.1-0.6); Monocytes Percent Auto 8.3 % (2.6-8.5); Neutrophils Absolute Auto 5.9 K/mm3 (1.3-6.7); Neutrophils Percent Auto 75.5 % (45.5-73.1); Platelet Count Result 208 k/mm3 (150-375); Red Blood Count 3.47 M/mm3 (4.2-5.4); Red Cell Distribution Width 13.8 % (11.5-14.5); White Blood Count 7.8 K/mm3 (4.5-10.0)
[2025-03-08 06:26] LABS: Alanine Aminotransferase 10 U/L (6-35); Albumin Level 3.5 g/dL (3.5-5.1); Alkaline Phosphatase 63 U/L (38-126); Anion Gap 7 mmol/L (4-12); Aspartate Amino Transferase 17 U/L (14-36); Bilirubin,Total 0.5 mg/dL (0.2-1.3); Blood Urea Nitrogen 46 mg/dL (7-17); Calcium 8.5 mg/dL (8.4-10.2); Carbon Dioxide 30 mmol/L (22-30); Chloride 105 mmol/L (98-107); Estimated CRCL calculation 13 ml/min; Estimated Glomerular Filt Rate 14; Glucose 97 mg/dL (65-110); Potassium 4.1 mmol/L (3.4-5.0); Sodium 142 mmol/L (137-145)
[2025-03-08 06:59] LABS: Platelet Estimate Adequate (Adequate); Schistocytes None Seen
[2025-03-08 08:02] LABS: Glucose Point of Care 106 mg/dl (65-105)
[2025-03-08 08:15] VITALS: O2SAT 94
--- NOTE | 2025-03-08 08:16 | P.PNIM_ITS ---
Progress Note: A&P Assessment and Plan (1) Right upper quadrant abdominal pain: Code(s): R10.11 - Right upper quadrant pain Status: Acute Assessment and Plan: - US RUQ: Coarse echogenicity of the liver. Distended gallbladder with no stones. Large cyst in the left kidney. Right pleural effusion. Otherwise, normal right upper quadrant ultrasound. - CT abd/pelvis: 1. Bilateral pleural effusion with adjacent atelectasis. 2. Cardiomegaly. 3. Sliding hiatus hernia. 4. No evidence of appendicitis, diverticulitis or intestinal obstruction. 5. Slightly thickened wall of the sigmoid colon. Evaluation for colitis and follow-up advised. 6. Bilateral renal stones with bilateral renal cysts. Hyperdense lesions seen in the right kidney with isodense area in the left kidney. Follow-up and further evaluation advised. 7. Distended gallbladder with no definite stones. Dilated CBD measuring 1.4 cm. Evaluation for the sphincter of Oddi is advised. 8. Hepatomegaly. - NPO for MRCP - GI consulted - analgesics and antiemetic p.r.n. - monitor LFTs - IV fluids: LR at 100 mL/hours x 1L - GI was consulted: An MRCP will be performed tomorrow to thoroughly evaluate the pancreas, pancreatic duct, and distal common bile duct. Depending on the MRCP findings, an EGD with duodenoscope will be considered to inspect the papilla to rule out ampulloma. If these tests are unrevealing, will refer to a tertiary care center for an endoscopic ultrasound (2) Anemia in CKD (chronic kidney disease): Qualifiers: Chronic kidney disease stage: stage 4 (GFR 15-29) Qualified Code(s): N18.4 - Chronic kidney disease, stage 4 (severe); D63.1 - Anemia in chronic kidney disease Code(s): N18.9 - Chronic kidney disease, unspecified; D63.1 - Anemia in chronic kidney disease Status: Acute Assessment and Plan: - Hgb 11.0, previously 10.1 on 12/01/2024 - Hx of chronic anemia secondary to CKD - transfuse if <7 - trend H&H (3) Chronic kidney disease, stage 4 (severe): Code(s): N18.4 - Chronic kidney disease, stage 4 (severe) Status: Chronic Assessment and Plan: - creatinine 3.12 and GFR 14, previously 2.8 and GFR 16 on 12/04/2024 - trend renal function - trend electrolytes, correct as needed (4) CHF (congestive heart failure): Qualifiers: Heart failure chronicity: chronic Heart failure type: systolic Qualified Code(s): I50.22 - Chronic systolic (congestive) heart failure Code(s): I50.9 - Heart failure, unspecified Status: Acute Assessment and Plan: - most recent echo (10/2024): Estimated EF 50-55%, diastolic function indeterminate. Pulmonary hypertension noted. See report for details. - currently on: Lasix 40 mg daily - monitor I&Os and daily weights - trend renal function (5) A-fib: Qualifiers: Atrial fibrillation type: persistent (not longstanding) Qualified Code(s): I48.19 - Other persistent atrial fibrillation Code(s): I48.91 - Unspecified atrial fibrillation Status: Chronic Assessment and Plan: - continue home medications: Diltiazem (6) Diabetes mellitus: Qualifiers: Chronic kidney disease stage: stage 4 (GFR 15-29) Diabetes mellitus complication detail: with chronic kidney disease Diabetes mellitus complication status: with kidney complications Diabetes mellitus terminal system operator insulin use: without terminal system operator use Diabetes mellitus type: type 2 Qualified Code(s): E11.22 - Type 2 diabetes mellitus with diabetic chronic kidney disease; N18.4 - Chronic kidney disease, stage 4 (severe) Code(s): E11.9 - Type 2 diabetes mellitus without complications Status: Acute Assessment and Plan: - hypoglycemia protocol - POC blood glucose ACHS - not currently on home medications - correct regimen ordered - low dose TIDWM, based off BMI - A1C 7.3% on 11/15/2024, update (7) HTN (hypertension): Qualifiers: Hypertension type: unspecified Qualified Code(s): I10 - Essential (primary) hypertension Code(s): I10 - Essential (primary) hypertension Status: Chronic Assessment and Plan: - chronic, currently 156/78 - continue home medications: Coreg - monitor Plan Diet: NPO until post procedure -> diabetic GI Prophylaxis: Not currently indicated DVT Prophylaxis: SCDs IV fluids: LR 100 mL/hour x1 L Lines/Tubes: Peripheral IV Code Status: Full code Time Spent With Patient Time with patient: 25 - 35 minutes Subjective Date/time seen: 03/08/25 08:16 Interval history: 79 y/o F with PMH of CHF, anemia, renal osteodystrophy, CKD stage 4, diabetes, CAD, paroxysmal AFib, RI, and COPD presents here with abdominal pain: RUQ. Pain started last weekend (approximately 5 days ago). She describes the pain as sharp, radiation into her midback, intermittent, last for up to 12 hours, no aggravated factors, and no alleviating factors. RUQ pain is accompanied by nausea without vomiting and intermittent diaphoresis. She denies constipation, diarrhea, fever, chills, or changes in stool color Pt is from [place] ([facility] Initial VS at presentation: 97.6? F, HR 72, R 16, 181/86, and 93% on RA. ED workup showed: No leukocytosis, hemoglobin 11.0 (previously 10.1 on 12/01/2024), creatinine 3.12 and GFR 14 (previously 2.81 and GFR 16 on 12/04/2024), glucose 138, UA showed 4+ protein/trace glucose/21-50 RBC. US RUQ showed coarse echogenicity of the liver, distended gallbladder with no stones, large cyst in left kidney, right pleural effusion. CT of the abdomen/pelvis showed multiple findings but most significantly for a distended gallbladder with no definite stones and dilated CBD measuring 1.4 cm. Pt is seen and examined. GI is consulted. She is resting in bed, comfortable, no acute pain, nausea is a lot better. Review of Systems Review of Systems: All systems reviewed & are unremarkable except as noted in HPI and below Exam Const: General: comfortable and no acute distress Other: , female, elderly, nontoxic appearance HENMT: Face/Nose/Sinus: Normal nares present Mouth: Yes moist mucous membranes Eyes: General: appearance normal, both eyes and all related structures Sclera: sclerae normal Pupils: Equal, round and reactive pupils present EOM: EOMs intact bilaterally Resp: Effort & Inspection: normal respiratory effort Auscultation: clear to auscultation bilaterally Cardio: Rate: regular rate Rhythm: regular rhythm Other: S1-S2 present without murmur, rub, ectopy GI: Other: Tenderness in the epigastric and right upper quadrant region. Abdomen remained soft, nondistended, normoactive bowel sounds in all quadrants. Skin: General skin exam: normal color and no rashes or lesions noted Wounds: no wounds Neuro: Cranial nerves: Yes Equal, round and reactive pupils present Speech: normal speech Motor exam (neuro): 5/5 motor strength present throughout Sensory Exam: normal sensation Other: A&O x4 Extrem: General: normal to inspection Psych: Mental Status: mental status grossly normal Affect: normal affect Other: Good insight and judgment, very pleasant Objective Data Vital Signs Vital Signs: Vital Signs - 24 hr 03/07/25 08:20 03/07/25 08:30 03/07/25 08:31 Temperature Pulse Rate Respiratory Rate Blood Pressure 149/71 H 165/85 H Pulse Oximetry 96 97 96 Oxygen Delivery Oxygen Flow Rate 03/07/25 08:45 03/07/25 09:00 03/07/25 09:15 Temperature Pulse Rate Respiratory Rate Blood Pressure Pulse Oximetry 98 98 98 Oxygen Delivery Oxygen Flow Rate 03/07/25 09:30 03/07/25 09:45 03/07/25 10:00 Temperature Pulse Rate Respiratory Rate Blood Pressure Pulse Oximetry 96 97 99 Oxygen Delivery Oxygen Flow Rate 03/07/25 10:15 03/07/25 10:30 03/07/25 10:45 Temperature Pulse Rate Respiratory Rate Blood Pressure Pulse Oximetry 96 93 94 Oxygen Delivery Oxygen Flow Rate 03/07/25 11:00 03/07/25 11:15 03/07/25 11:30 Temperature Pulse Rate Respiratory Rate Blood Pressure Pulse Oximetry 94 93 93 Oxygen Delivery Oxygen Flow Rate 03/07/25 11:45 03/07/25 12:00 03/07/25 12:14 Temperature Pulse Rate Respiratory Rate Blood Pressure Pulse Oximetry 93 94 82 L Oxygen Delivery Room Air Oxygen Flow Rate 03/07/25 12:14 03/07/25 12:14 03/07/25 15:30 Temperature 97.5 F L Pulse Rate 84 78 Respiratory Rate 16 14 Blood Pressure 156/78 H 139/72 Pulse Oximetry 91 90 100 Oxygen Delivery Nasal Cannula Oxygen Flow Rate 3 03/07/25 20:00 03/07/25 20:43 03/08/25 06:00 Temperature 97.6 F 97.6 F Pulse Rate 67 67 83 Respiratory Rate 18 18 20 Blood Pressure 129/82 138/65 Pulse Oximetry 96 96 96 Oxygen Delivery Nasal Cannula Oxygen Flow Rate 3 Intake/Output Intake/Output: Intake & Output 03/05/25 03/06/25 03/07/25 03/08/25 23:59 23:59 23:59 23:59 Intake Total 1120 Balance 1120 Meds/Results Medications: Active Medications Generic Name Dose Route Start Last Admin Trade Name Freq PRN Reason Stop Dose Admin Acetaminophen 650 mg 03/07/25 14:30 Acetaminophen 325 Mg Tablet PO Q6H PRN Mild Pain (1-3) or Fever Hydrocodone Bitart/Acetaminophen 1 tab 03/07/25 14:30 03/07/25 21:13 Hydrocodone/Acetaminophen (*Crx) 5-325 Mg Tablet PO 1 tab Q6H PRN Administration Pain Rated 4-6 Carvedilol 12.5 mg 03/08/25 09:00 Carvedilol 12.5 Mg Tablet PO Q12HR [facility] Cyclosporine 1 drop 03/08/25 09:00 Cyclosporine 0.4 Ml Ophth Solution EACH EYE DAILY [facility] Dextrose 12.5 gm 03/07/25 14:33 Dextrose 50% 25 Gm/50 Ml Syringe IV PUSH PRN PRN Hypoglycemia Protocol Diltiazem HCl 240 mg 03/08/25 09:00 Diltiazem Hcl Cd 240 Mg Cap.24hr PO DAILY [facility] Ezetimibe 10 mg 03/08/25 09:00 Ezetimibe 10 Mg Tablet PO DAILY [facility] Furosemide 40 mg 03/08/25 09:00 Furosemide 40 Mg Tablet PO DAILY [facility] Glucagon 1 mg 03/07/25 14:33 Glucagon For Inj 1 Mg Vial IM PRN PRN Hypoglycemia Protocol Glucose 15 gm 03/07/25 14:33 Glucose Oral Gel 15 Gm Of Glucse In 37.5 Gm Tube PO PRN PRN Hypoglycemia Protocol Hydralazine HCl 25 mg 03/08/25 09:00 Hydralazine Hcl 25 Mg Tablet PO BID [facility] Dextrose 1,000 mls @ 100 mls/hr 03/07/25 14:33 Dextrose 5% 1,000 Ml IVPB PRN PRN Hypoglycemia Protocol Insulin Aspart 2 - 5 units 03/07/25 17:00 03/07/25 17:00 Insulin Aspart (*Bkc) 100 Units/Ml SUB-Q Not Given TIDWM [facility] Protocol Loratadine 10 mg 03/08/25 09:00 Loratadine 10 Mg Tablet PO QAM [facility] Morphine Sulfate 1 mg 03/07/25 11:03 Morphine Sulfate (*Crx) 2 Mg/Ml Inj IV PUSH Q2H PRN Pain Rated 7-10 Ondansetron HCl 4 mg 03/07/25 11:03 03/07/25 16:19 Ondansetron Inj 4 Mg/2 Ml Vial IV PUSH 4 mg Q4H PRN Administration Nausea Potassium Chloride 20 meq 03/08/25 09:00 Potassium Chloride 20 Meq Er Tablet PO Q48H [facility] Radiology Results: ITS Impressions Upper Quadrant Ultrasound 03/07/25 08:25 IMPRESSION: Coarse echogenicity of the liver. Distended gallbladder with no stones. Large cyst in the left kidney. Right pleural effusion. Otherwise, normal right upper quadrant ultrasound. Abdomen/Pelvis CT 03/07/25 08:58 IMPRESSION: 1. Bilateral pleural effusion with adjacent atelectasis. 2. Cardiomegaly. 3. Sliding hiatus hernia. 4. No evidence of appendicitis, diverticulitis or intestinal obstruction. 5. Slightly thickened wall of the sigmoid colon. Evaluation for colitis and follow-up advised. 6. Bilateral renal stones with bilateral renal cysts. Hyperdense lesions seen in the right kidney with isodense area in the left kidney. Follow-up and further evaluation advised. 7. Distended gallbladder with no definite stones. Dilated CBD measuring 1.4 cm. Evaluation for the sphincter of Oddi is advised. 8. Hepatomegaly. Labs Labs: Laboratory Results - last 24 hr 03/07/25 03/07/25 03/07/25 08:20 16:34 19:51 WBC RBC Hgb Hct MCV MCH MCHC RDW Plt Count MPV Immature Gran % (Auto) Neut % (Auto) Lymph % (Auto) [place] % (Auto) Eos % (Auto) Baso % (Auto) Lymph # (Auto) [place] # (Auto) Eos # (Auto) Baso # (Auto) Abs Immat Gran (auto) Absolute Neuts (auto) Absolute Nucleated RBC Band Neutrophils % Nucleated RBC % Platelet Estimate Schistocytes Sodium Potassium Chloride Carbon Dioxide Anion Gap BUN Creatinine Estim Creat Clear Calc Estimated GFR Glucose POC Capillary Glucose 134 H 109 H Calcium Total Bilirubin AST ALT Alkaline Phosphatase Total Protein Albumin Urine Color Yellow Urine Appearance Clear Urine pH 6.5 Ur Specific [place] 1.015 Urine Protein 4+ H Urine Glucose (UA) Trace H Urine Ketones Negative Ur Blood (Man) Trace Urine Nitrate Negative Urine Bilirubin Negative Urine Urobilinogen 1.0 Leukocyte Esterase Rfl Negative Urine RBC 21-50 H Urine WBC 0-5 Ur Squamous Epith Cells None seen Urine Bacteria None seen Urine Casts 3-5 03/08/25 03/08/25 05:35 07:59 WBC 7.8 RBC 3.47 L Hgb 10.5 L Hct 35.4 L MCV 102.0 H MCH 30.3 MCHC 29.7 L RDW 13.8 Plt Count 208 MPV 10.5 H Immature Gran % (Auto) 0.3 Neut % (Auto) 75.5 H Lymph % (Auto) 14.5 L [place] % (Auto) 8.3 Eos % (Auto) 0.8 Baso % (Auto) 0.6 Lymph # (Auto) 1.13 [place] # (Auto) 0.7 H Eos # (Auto) 0.1 Baso # (Auto) 0.1 Abs Immat Gran (auto) 0.02 Absolute Neuts (auto) 5.9 Absolute Nucleated RBC 0.000 Band Neutrophils % Not Reportable Nucleated RBC % 0.0 Platelet Estimate Adequate Schistocytes None seen Sodium 142 Potassium 4.1 Chloride 105 Carbon Dioxide 30 Anion Gap 7 BUN 46 H Creatinine 3.19 H Estim Creat Clear Calc 13 Estimated GFR 14 L Glucose 97 POC Capillary Glucose 106 H Calcium 8.5 Total Bilirubin 0.5 AST 17 ALT 10 Alkaline Phosphatase 63 Total Protein 6.0 L Albumin 3.5 Urine Color Urine Appearance Urine pH Ur Specific [place] Urine Protein Urine Glucose (UA) Urine Ketones Ur Blood (Man) Urine Nitrate Urine Bilirubin Urine Urobilinogen Leukocyte Esterase Rfl Urine RBC Urine WBC Ur Squamous Epith Cells Urine Bacteria Urine Casts Quality VTE Prophylaxis VTE prophylaxis: mechanical ordered
[2025-03-08 08:56] VITALS: O2SAT 93
[2025-03-08] MEDS: cycloSPORINE 0.4 ML OPHTH SOLUTION 1 DROP EACH EYE (10:48)
[2025-03-08] MEDS: dilTIAZem HCL CD 240 MG CAP.24HR PO (10:49)
[2025-03-08] MEDS: FUROSEMIDE 40 MG TABLET PO (10:49)
[2025-03-08] MEDS: hydrALAZINE HCL 25 MG TABLET PO ×2 (10:50→17:03)
[2025-03-08 10:58] VITALS: O2SAT 92
[2025-03-08 14:02] VITALS: BMI 24.5
[2025-03-08 15:12] VITALS: BP 145/76; PULSE 97; RESP 20; TEMP 36.6; O2SAT 93
[2025-03-08 16:56] LABS: Glucose Point of Care 102 mg/dl (65-105)
[2025-03-08] MEDS: carvediloL 12.5 MG TABLET PO (17:56)
[2025-03-08 21:07] LABS: Glucose Point of Care 222 mg/dl (65-105)
[2025-03-08 21:27] VITALS: BP 120/53; PULSE 59; RESP 20; TEMP 36.9; O2SAT 97
[2025-03-09 05:46] VITALS: BP 124/60; PULSE 64; RESP 16; TEMP 36.7; O2SAT 97
--- NOTE | 2025-03-09 07:16 | P.PNGI_ITS ---
Progress Note: A&P Assessment and Plan (1) Common bile duct dilatation: Code(s): K83.8 - Other specified diseases of biliary tract Status: Acute Assessment and Plan: MRCP findings reviewed. There is no definite pancreatic or biliary mass, however the common bile duct tapers acutely. There is still suspicion of an occult neoplastic process in the distal common bile duct. Ca 19-9 requested, still pending. I put a referral for [facility] advanced endoscopy procedures, specifically requesting endoscopic ultrasound (EUS) and possible ERCP depending on the findings. The patient will be contacted next week. Subjective Date/time seen: 03/09/25 07:16 Interval history: No abdominal pain, tolerating food well. Exam Narrative: Abdomen: Unchanged from baseline. Objective Data Vital Signs Vital Signs: Vital Signs - 24 hr 03/08/25 08:15 03/08/25 08:56 03/08/25 10:58 Temperature Pulse Rate Respiratory Rate Blood Pressure Pulse Oximetry 94 93 92 Oxygen Delivery Nasal Cannula Nasal Cannula Nasal Cannula Oxygen Flow Rate 2 3 1 03/08/25 15:12 03/08/25 21:27 03/09/25 05:46 Temperature 97.8 F 98.5 F 98.1 F Pulse Rate 97 59 L 64 Respiratory Rate 20 20 16 Blood Pressure 145/76 H 120/53 L 124/60 Pulse Oximetry 93 97 97 Oxygen Delivery Oxygen Flow Rate Intake/Output Intake/Output: Intake & Output 03/06/25 03/07/25 03/08/25 03/09/25 23:59 23:59 23:59 23:59 Intake Total 1800 Balance 1800 Meds/Results Medications: Active Medications Generic Name Dose Route Start Last Admin Trade Name Freq PRN Reason Stop Dose Admin Acetaminophen 650 mg 03/07/25 14:30 Acetaminophen 325 Mg Tablet PO Q6H PRN Mild Pain (1-3) or Fever Hydrocodone Bitart/Acetaminophen 1 tab 03/07/25 14:30 03/07/25 21:13 Hydrocodone/Acetaminophen (*Crx) 5-325 Mg Tablet PO 1 tab Q6H PRN Administration Pain Rated 4-6 Carvedilol 12.5 mg 03/08/25 17:00 03/08/25 17:56 Carvedilol 12.5 Mg Tablet PO 12.5 mg BID SUKUMAR Administration Cyclosporine 1 drop 03/08/25 09:00 03/08/25 10:48 Cyclosporine 0.4 Ml Ophth Solution EACH EYE 1 drop DAILY [facility] Administration Dextrose 12.5 gm 03/07/25 14:33 Dextrose 50% 25 Gm/50 Ml Syringe IV PUSH PRN PRN Hypoglycemia Protocol Diltiazem HCl 240 mg 03/08/25 09:00 03/08/25 10:49 Diltiazem Hcl Cd 240 Mg Cap.24hr PO 240 mg DAILY [facility] Administration Ezetimibe 10 mg 03/08/25 09:00 03/08/25 10:48 Ezetimibe 10 Mg Tablet PO Not Given DAILY [facility] Furosemide 40 mg 03/08/25 09:00 03/08/25 10:49 Furosemide 40 Mg Tablet PO 40 mg DAILY [facility] Administration Glucagon 1 mg 03/07/25 14:33 Glucagon For Inj 1 Mg Vial IM PRN PRN Hypoglycemia Protocol Glucose 15 gm 03/07/25 14:33 Glucose Oral Gel 15 Gm Of Glucse In 37.5 Gm Tube PO PRN PRN Hypoglycemia Protocol Hydralazine HCl 25 mg 03/08/25 09:00 03/08/25 17:03 Hydralazine Hcl 25 Mg Tablet PO 25 mg BID SUKUMAR Administration Dextrose 1,000 mls @ 100 mls/hr 03/07/25 14:33 Dextrose 5% 1,000 Ml IVPB PRN PRN Hypoglycemia Protocol Insulin Aspart 2 - 5 units 03/07/25 17:00 03/08/25 17:02 Insulin Aspart (*Bkc) 100 Units/Ml SUB-Q Not Given TIDWM [facility] Protocol Loratadine 10 mg 03/08/25 09:00 03/08/25 10:49 Loratadine 10 Mg Tablet PO Not Given QAM [facility] Morphine Sulfate 1 mg 03/07/25 11:03 Morphine Sulfate (*Crx) 2 Mg/Ml Inj IV PUSH Q2H PRN Pain Rated 7-10 Ondansetron HCl 4 mg 03/07/25 11:03 03/07/25 16:19 Ondansetron Inj 4 Mg/2 Ml Vial IV PUSH 4 mg Q4H PRN Administration Nausea Potassium Chloride 20 meq 03/08/25 09:00 03/08/25 10:49 Potassium Chloride 20 Meq Er Tablet PO Not Given Q48H [facility] Radiology Results: ITS Impressions Upper Quadrant Ultrasound 03/07/25 08:25 IMPRESSION: Coarse echogenicity of the liver. Distended gallbladder with no stones. Large cyst in the left kidney. Right pleural effusion. Otherwise, normal right upper quadrant ultrasound. Abdomen/Pelvis CT 03/07/25 08:58 IMPRESSION: 1. Bilateral pleural effusion with adjacent atelectasis. 2. Cardiomegaly. 3. Sliding hiatus hernia. 4. No evidence of appendicitis, diverticulitis or intestinal obstruction. 5. Slightly thickened wall of the sigmoid colon. Evaluation for colitis and follow-up advised. 6. Bilateral renal stones with bilateral renal cysts. Hyperdense lesions seen in the right kidney with isodense area in the left kidney. Follow-up and further evaluation advised. 7. Distended gallbladder with no definite stones. Dilated CBD measuring 1.4 cm. Evaluation for the sphincter of Oddi is advised. 8. Hepatomegaly. MRCP 03/08/25 15:38 IMPRESSION: 1. Prominent distention of the gallbladder, mild central intrahepatic ductal or ductal dilation and more prominent dilation of the common hepatic and bile ducts to 1.7 cm and 1.5 cm respectively with the latter tapering smoothly at the ampulla with no evident cholelithiasis/choledocholithiasis or obstructing mass. 2. Pleural effusions with mild dependent compressive atelectasis in both lower lobes. 3. Cardiomegaly. 4. Moderate-sized sliding-type hiatal hernia. 5. Bilateral simple and complex proteinaceous/hemorrhagic renal cyst. 6. Several cystic lesions in the body and tail the pancreas measuring up to 11 mm. The differential diagnosis includes pseudocyst, intraductal papillary mucinous neoplasm (IPMN), mucinous cystic neoplasm (MCN), and the less common serous cystadenoma and neuroendocrine tumor. Correlate for history of pancreatitis. Given patient age and the stability since 2019 of the largest cystic lesion, further follow-up is likely unnecessary. 7. 1.7 x 1.5 cm simple appearing cystic lesion situated between the fundus of the gallbladder and the liver with differential including exophytic hepatic cyst or gallbladder cyst. No evident solid soft tissue component and this is of doubtful clinical significance. 8. Extensive colonic diverticulosis. 9. Small amount of ascites. Labs Labs: Laboratory Results - last 24 hr 03/08/25 03/08/25 03/08/25 07:59 16:53 20:40 POC Capillary Glucose 106 H 102 222 H
[2025-03-09 07:47] LABS: Glucose Point of Care 90 mg/dl (65-105)
[2025-03-09 08:04] LABS: Hemoglobin A1C 6.6 % (<5.7)
[2025-03-09] MEDS: FUROSEMIDE 40 MG TABLET PO (08:40)
[2025-03-09 08:41] VITALS: PULSE 72
[2025-03-09] MEDS: hydrALAZINE HCL 25 MG TABLET PO (08:41)
[2025-03-09] MEDS: carvediloL 12.5 MG TABLET PO (08:41)
[2025-03-09] MEDS: dilTIAZem HCL CD 240 MG CAP.24HR PO (08:41)
[2025-03-09] MEDS: cycloSPORINE 0.4 ML OPHTH SOLUTION 1 DROP EACH EYE (08:42)
--- NOTE | 2025-03-09 08:48 | P.DS_ITS ---
DS: Admitting Diagnosis Discharge Date 03/09 Admitting Diagnosis abd pain DS: Discharge Diagnosis Discharge Diagnosis (1) Right upper quadrant abdominal pain: Code(s): R10.11 - Right upper quadrant pain Status: Acute (2) Anemia in CKD (chronic kidney disease): Qualifiers: Chronic kidney disease stage: stage 4 (GFR 15-29) Qualified Code(s): N18.4 - Chronic kidney disease, stage 4 (severe); D63.1 - Anemia in chronic kidney disease Code(s): N18.9 - Chronic kidney disease, unspecified; D63.1 - Anemia in chronic kidney disease Status: Acute (3) Chronic kidney disease, stage 4 (severe): Code(s): N18.4 - Chronic kidney disease, stage 4 (severe) Status: Chronic (4) CHF (congestive heart failure): Qualifiers: Heart failure chronicity: chronic Heart failure type: systolic Qualified Code(s): I50.22 - Chronic systolic (congestive) heart failure Code(s): I50.9 - Heart failure, unspecified Status: Acute (5) A-fib: Qualifiers: Atrial fibrillation type: persistent (not longstanding) Qualified Code(s): I48.19 - Other persistent atrial fibrillation Code(s): I48.91 - Unspecified atrial fibrillation Status: Chronic Assessment and Plan: - continue home medications: Diltiazem (6) Diabetes mellitus: Qualifiers: Diabetes mellitus type: type 2 Diabetes mellitus 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 insulin use: without 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 use Diabetes mellitus complication status: with kidney complications Diabetes mellitus complication detail: with chronic kidney disease Chronic kidney disease stage: stage 4 (GFR 15-29) Qualified Code(s): E11.22 - Type 2 diabetes mellitus with diabetic chronic kidney disease; N18.4 - Chronic kidney disease, stage 4 (severe) Code(s): E11.9 - Type 2 diabetes mellitus without complications Status: Acute Assessment and Plan: - hypoglycemia protocol - POC blood glucose ACHS - not currently on home medications - correct regimen ordered - low dose TIDWM, based off BMI - A1C 7.3% on 11/15/2024, update (7) HTN (hypertension): Qualifiers: Hypertension type: unspecified Qualified Code(s): I10 - Essential (primary) hypertension Code(s): I10 - Essential (primary) hypertension Status: Chronic Assessment and Plan: - chronic, currently 156/78 - continue home medications: Coreg - monitor Plan Diet: NPO until post procedure -> diabetic GI Prophylaxis: Not currently indicated DVT Prophylaxis: SCDs IV fluids: LR 100 mL/hour x1 L Lines/Tubes: Peripheral IV Code Status: Full code DS: Summary Hospital Course Hospital Course: 79 y/o F with PMH of CHF, anemia, renal osteodystrophy, CKD stage 4, diabetes, CAD, paroxysmal AFib, [place], and COPD presents here with abdominal pain: RUQ. Pain started last weekend (approximately 5 days ago). She describes the pain as sharp, radiation into her midback, intermittent, last for up to 12 hours, no aggravated factors, and no alleviating factors. RUQ pain is accompanied by nausea without vomiting and intermittent diaphoresis. She denies constipation, diarrhea, fever, chills, or changes in stool color Pt is from [place] ([facility]). # RUQ pain - US RUQ: Coarse echogenicity of the liver. Distended gallbladder with no stones. Large cyst in the left kidney. Right pleural effusion. Otherwise, normal right upper quadrant ultrasound. - CT abd/pelvis: 1. Bilateral pleural effusion with adjacent atelectasis. 2. Cardiomegaly. 3. Sliding hiatus hernia. 4. No evidence of appendicitis, diverticulitis or intestinal obstruction. 5. Slightly thickened wall of the sigmoid colon. Evaluation for colitis and follow-up advised. 6. Bilateral renal stones with bilateral renal cysts. Hyperdense lesions seen in the right kidney with isodense area in the left kidney. Follow-up and further evaluation advised. 7. Distended gallbladder with no definite stones. Dilated CBD measuring 1.4 cm. Evaluation for the sphincter of Oddi is advised. 8. Hepatomegaly. -received IV fluids: LR at 100 mL/hours x 1L - GI was consulted: MRCP findings reviewed. There is no definite pancreatic or biliary mass, however the common bile duct tapers acutely. There is still suspicion of an occult neoplastic process in the distal common bile duct. Ca 19-9 requested, still pending. I put a referral for [facility] advanced endoscopy procedures, specifically requesting endoscopic ultrasound (EUS) and possible ERCP depending on the findings. The patient will be contacted next week # CKD creatinine 3.12 and GFR 14, previously 2.8 and GFR 16 on 12/04/2024 - # CHF (systolic)-chronic- no acute issues during this admission - most recent echo (10/2024): Estimated EF 50-55%, diastolic function indeterminate. Pulmonary hypertension noted. See report for details. - currently on: Lasix 40 mg daily - monitor I&Os and daily weights - trend renal function # afib chronic, stable during this admission - Diltiazem- no changes-continue Status at Discharge Functional status at discharge: uses cane/walker Overall status at discharge: patient is progressing back to baseline Time Spent with Patient Time attestation: Total time spent providing and/or coordinating discharge services: Time spent: Greater than 30 minutes Exam Const: General: comfortable and no acute distress Other: , female, elderly, nontoxic appearance HENMT: Face/Nose/Sinus: Normal nares present Mouth: Yes moist mucous membranes Eyes: General: appearance normal, both eyes and all related structures Sclera: sclerae normal Pupils: Equal, round and reactive pupils present EOM: EOMs intact bilaterally Resp: Effort & Inspection: normal respiratory effort Auscultation: clear to auscultation bilaterally Cardio: Rate: regular rate Rhythm: regular rhythm Other: S1-S2 present without murmur, rub, ectopy GI: Other: Tenderness in the epigastric and right upper quadrant region. Abdomen remained soft, nondistended, normoactive bowel sounds in all quadrants. Skin: General skin exam: normal color and no rashes or lesions noted Wounds: no wounds Neuro: Cranial nerves: Yes Equal, round and reactive pupils present Speech: normal speech Motor exam (neuro): 5/5 motor strength present throughout Sensory Exam: normal sensation Other: A&O x4 Extrem: General: normal to inspection Psych: Mental Status: mental status grossly normal Affect: normal affect Other: Good insight and judgment, very pleasant DS: Data Data Completed and Pending Labs on day of discharge: Labs from last 24 hours 03/09/25 03/08/25 03/08/25 07:31 20:40 16:53 POC Capillary Glucose 90 222 H 102 Hemoglobin A1c CA 19-9 Antigen 03/08/25 05:35 POC Capillary Glucose Hemoglobin A1c 6.6 H CA 19-9 Antigen Pending Discharge Plan Discharge Attending physician on discharge: Yaya Mcmahan Discharging Clinician: Hillary Frederick Patient Disposition: Home Activity: february shower Diet: heart healthy Discharge Instructions: You were admitted for abd pain. GI saw you and had multiple tests done. MRCP findings showed that there is no definite pancreatic or biliary mass. There is still suspicion of an occult neoplastic process in the distal common bile duct. DR Payne placed referral for [facility] advanced endoscopy procedures, specifically requesting endoscopic ultrasound (EUS) and possible ERCP depending on the findings. You will be contacted next week to schedule an kathryn. [place] and zofran were sent for you to take in case oyu have pain or nausea. [place] can make you sleepy or drowsy, so please don't drive while taking it and take fall precautions. Patient Instructions: Antibiotic Form Patient Language: Persian Stand Alone Forms: General Discharge Information Follow-up/Referrals: Quinten Whitlock MD [Primary Care Provider] - 2 Weeks Discharge Medications: New hydrocodone-acetaminophen 5-325 mg Tablet 1 tablet PO Q6H PRN (Reason: Pain Rated 4-6) Qty: 10 0RF ondansetron 4 mg tablet,disintegrating 4 mg PO Q8H PRN (Reason: nausea and vomiting) Qty: 10 0RF Continued carvedilol 12.5 mg tablet 12.5 mg PO Q12H cetirizine 10 mg tablet 10 mg PO DAILY Qty: 20 0RF Restasis MultiDose 0.05 % drops 1 drop EACH EYE DAILY ezetimibe 10 mg tablet 10 mg PO DAILY Qty: 90 3RF acetaminophen [Tylenol Extra Strength] 500 mg tablet 500 mg PO Q6H PRN (Reason: pain) potassium chloride [Klor-Con M20] 20 mEq tablet,ER particles/crystals 20 meq PO .COMPLEX Qty: 45 1RF Rx Instructions: 20 mEq orally every other day; does 20mEq every other day diltiazem HCl 240 mg capsule,extended release 24hr 240 mg PO DAILY Qty: 30 0RF furosemide 40 mg Tablet 40 mg PO DAILY Qty: 90 0RF (DME) FreeStyle Test Strip See Rx Instructions .Route Qty: 100 3RF Rx Instructions: test qam fasting (DME) lancets [FreeStyle Lancets] 28 gauge misc See Rx Instructions .Route Qty: 100 3RF Rx Instructions: test qam fasting hydralazine 25 mg tablet 25 mg PO BID Qty: 180 1RF Date of admission: 03/08/25 15:54 Primary Care Provider: Quinten Whitlock Admitting Provider: Samara Knowles Attending physician on admission: Samara Knowles Condition: Stable Quality VTE Prophylaxis VTE prophylaxis: mechanical ordered Hospitalist MIPS Heart Failure (Exclusion) Patient has history of Heart Transplant or Left Ventricular Assistive Device?: No IF YES, STOP HERE Heart Failure (Qualifier) Patient has current or prior documentation of LVEF less than or equal to 40%, or mod/servere depressed LVSF?: No IF NO, STOP HERE
[2025-03-09 08:53] VITALS: O2SAT 92
[2025-03-10 01:53] LABS: CA 19-9 4 U/mL (<34)
== END 2025-03-09 13:31 | disposition home or self-care (01) | DRG 445 ==
LOC: ANHED 07:47 → ANH3MEDSUR 11:35
PROVIDERS: Internal Medicine Gastroenterology; Student in an Organized Health Care Education/Training Program; Admitting Provider Family Medicine; Emergency Provider Emergency Medicine; PCP Family Medicine; Visit Provider Nurse Practitioner
DX: K83.8 Other specified diseases of biliary tract (principal); I13.0 Hypertensive heart and chronic kidney disease with heart failure and stage 1 through stage 4 chronic kidney disease, or unspecified chronic kidney disease; N18.4 Chronic kidney disease, stage 4 (severe); I50.22 Chronic systolic (congestive) heart failure; R10.11 Right upper quadrant pain; N28.1 Cyst of kidney, acquired; N20.0 Calculus of kidney; R16.0 Hepatomegaly, not elsewhere classified; D63.1 Anemia in chronic kidney disease; E11.22 Type 2 diabetes mellitus with diabetic chronic kidney disease; E78.5 Hyperlipidemia, unspecified; F41.9 Anxiety disorder, unspecified; I25.10 Atherosclerotic heart disease of native coronary artery without angina pectoris; I25.2 Old myocardial infarction; I48.0 Paroxysmal atrial fibrillation; J44.9 Chronic obstructive pulmonary disease, unspecified; Z87.891 Personal history of nicotine dependence; Z79.85 Long-term (current) use of injectable non-insulin antidiabetic drugs; Z79.4 Long term (current) use of insulin
CPT/HCPCS: 36415; 74176; 74183; 76376; 76705; 80053; 81001; 82948; 83036; 83690; 85025; 86301; 96361; 96374; 96375; 96376; 99285; A9270; A9577; G0378; J2270; J2405; J7120

== ENCOUNTER 2025-03-10 18:48 | Inpatient (IN) | payer MEDICARE, SELFPAY ==
[2025-03-10] VITALS (8 sets, daily range): BP systolic 144–165; BP diastolic 63–87; PULSE 83–94; RESP 18–41; TEMP 37; O2SAT 82–97
--- NOTE | ~2025-03-10 | XR_ITS ---
EXAMINATION: [id number] DATE: 03/14/2025 12:24 INDICATION: Status post right thoracentesis TECHNIQUE: frontal view of the chest was obtained. COMPARISON: Chest CT dated 03/13/2025 and chest radiograph dated 03/10/2025 FINDINGS: Complete resolution of the prior right pleural effusion. Residual airspace opacity left lower lung zo ne consistent with small left pleural effusion with associated left basilar atelectasis and/or pneumo christiano. Increased interstitial pattern in the bilateral mid and lower lung zones consistent with mild pu lmonary edema. No pneumothorax. Mild cardiomegaly with change of prior mitral valve repair. Surgical clips at the right axilla. IMPRESSION: 1. Interval resolution of prior right pleural effusion with no pneumothorax post thoracentesis. 2. Mild pulmonary edema in the bilateral mid and lower lung zones. 3. Small left pleural effusion with associated left basilar atelectasis and/or pneumonia. 4. Cardiomegaly. Reviewed, dictated and finalized at location A. IMPRESSION: 1. Interval resolution of prior right pleural effusion with no pneumothorax pos t thoracentesis. 2. Mild pulmonary edema in the bilateral mid and lower lung zones. 3. Small left pleural effusion with associated left basilar atelectasis and/or pneumonia. 4. Cardiomegaly.
--- NOTE | ~2025-03-10 | CT_ITS ---
CTA chest PE abdomen pel Ordering provider: Lo Dunn History: . dypsneic on exertion; hx HF and COPD; dimer >1 . Comparison: March 07, 2025 Technique: CT angiogram chest was performed following timed intravenous injection of contrast. Thin s lice axial images and reformatted coronal images were obtained. Three dimensional reformatted images of the chest were also obtained using a [employer] workstation. Also, CT of the abdomen and pelvis was pe rformed with IV contrast. . Automated exposure control and iterative reconstruction technique were e mployed. The dose-length product was 1009.61 mGy-cm. 100 mL Omnipaque 350 was given IV. FINDINGS: CHEST: --PULMONARY ARTERIES: No pulmonary embolus. --VISUALIZED THORACIC INLET: Normal. --MEDIASTINUM: Aorta/coronary arteries: Mild atheromatous disease. Heart/other: The heart is moderately enlarged. Trace of pericardial effusion seen anteriorly. Lymph nodes: Multiple lymph nodes are seen in the mediastinum right hilar lymph nodes are also noted. --LUNGS: Bilateral large pleural effusion with adjacent atelectasis versus pneumonia more on the right side. U nderlying pulmonary edema is noted. No pulmonary nodules or masses. No infiltrates or effusions. No p neumothorax. --MUSCULOSKELETAL: Bones: Age appropriate degenerative changes of the spine. Superficial soft tissues: The superficial soft tissues are normal. ABDOMEN/PELVIS: --MUSCULOSKELETAL: Superficial soft tissues: Left inguinal hernia with fluid and fat content. Otherwise, The superficial soft tissues are normal. Bones: Age appropriate degenerative changes of the spine. Postoperative changes in the right femoral neck and proximal femur. Left hip osteoarthritic changes. Symphysis pubis. Bilateral sacroiliacs. --UPPER ABDOMINAL ORGANS: Liver: Enhancing area in the left lobe which measures 3 x 3.2 cm. This may represent a mass. Further evaluation advised. CBD measures 1.4 cm. Hepatomegaly. Gallbladder: Distended gallbladder with no definite stones. Pericholecystic fluid is also noted. Smal l cystic area seen between the liver and the gallbladder unchanged. Spleen: Normal. Stomach/duodenum: Large sliding hiatus hernia. Pancreas: Atrophic. Adrenals: Normal. Kidneys: Large cyst in the right kidney unchanged. Multiple cysts in the left kidney unchanged. Isodense area is seen in the left kidney upper pole with no enhancement unchanged. Follow-up advised. Isodense area also seen in the right kidney posteriorly unchanged. Follow-up advised. Isodense area seen in the right kidney upper pole laterally measuring 1.3 unchanged. Follow-up advise d. Tiny stone in the right kidney lower pole. Stone in the left kidney upper pole. --PELVIC ORGANS: The bladder is normal. No bladder stones. --BOWEL AND MESENTERY: Colon: No evidence of diverticulitis. Slightly thickened wall of the sigmoid colon. Normal appendix. Small Bowel: Normal. No obstruction. Peritoneum/mesentery: No free air. Free fluid is seen in the pelvis. No mesenteric lymphadenopathy. --RETROPERITONEUM: Mild atheromatous disease of the abdominal aorta. No retroperitoneal lymphadenop athy. IMPRESSION: CHEST: 1. No pulmonary embolism. 2. Cardiomegaly. 3. Bilateral large pleural effusion with adjacent atelectasis versus pneumonia. 4. Highly suggestive pulmonary edema seen bilaterally. 5. Trace of pericardial effusion. 6. Hilar and mediastinal lymphadenopathy. ABDOMEN/PELVIS: 1. No evidence of appendicitis, diverticulitis or intestinal obstruction. 2. Hepatomegaly with enhancing area in the left lobe. Mass is highly suggestive. Further evaluation advised. 3. Distended gallbladder with no stones. Surrounding edema is seen. No change from previous examinat ion. 4. Small cyst seen between the gallbladder and the liver. 5. Sliding hiatus hernia 6. Enhancing mass in the right kidney laterally which may be renal cell carcinoma. Further evaluatio n advised. 7. Isodense lesion is seen posterior to the right kidney and in the left kidney upper pole. Follow-u p advised. 8. Bilateral renal stones. 9. Bilateral renal cysts. 10. Free fluid in the pelvis. Evidence of perforation is not demonstrated. Follow-up advised. 11. Slightly thickened sigmoid colon. 12. Fat-containing left left inguinal hernia with minimal fluid.. Reviewed, dictated and finalized at location A. IMPRESSION: CHEST: 1. No pulmonary embolism. 2. Cardiomegaly. 3. Bilateral large pleural effusion with adjacent atelectasis versus pneumonia . 4. Highly suggestive pulmonary edema seen bilaterally. 5. Trace of pericardial effusion. 6. Hilar and mediastinal lymphadenopathy. ABDOMEN/PELVIS: 1. No evidence of appendicitis, diverticulitis or intestinal obstruction. 2. Hepatomegaly with enhancing area in the left lobe. Mass is highly suggestiv e. Further evaluation advised. 3. Distended gallbladder with no stones. Surrounding edema is seen. No change from previous examination. 4. Small cyst seen between the gallbladder and the liver. 5. Sliding hiatus hernia 6. Enhancing mass in the right kidney laterally which may be renal cell carcin noah. Further evaluation advised. 7. Isodense lesion is seen posterior to the right kidney and in the left kidne y upper pole. Follow-up advised. 8. Bilateral renal stones. 9. Bilateral renal cysts. 10. Free fluid in the pelvis. Evidence of perforation is not demonstrated. Fol low-up advised. 11. Slightly thickened sigmoid colon. 12. Fat-containing left left inguinal hernia with minimal fluid..
--- NOTE | ~2025-03-10 | US_ITS ---
EXAMINATION: US thoracentesis DATE: 03/14/2025 12:33 INDICATION: Right pleural effusion TECHNIQUE: The procedure and its risks and benefits were discussed with the patient. Potential risks discussed included bleeding, infection, and pneumothorax. The patient understood the risks and agreed to proceed. The skin was prepped and draped in sterile fashion. 1% lidocaine was used for local anes thesia. Under ultrasound guidance, a 5 Fr catheter with trochar was advanced into the right pleural e ffusion. Fluid was aspirated. The catheter was removed, and a dressing was applied. There were no imm ediate complications. FINDINGS: Ultrasound images demonstrate a small right pleural effusion and the catheter within the fluid. IMPRESSION: 1. Successful ultrasound-guided thoracentesis yielding 650 mL of dark saturnino-colored fluid. Reviewed, dictated and finalized at location A. IMPRESSION: 1. Successful ultrasound-guided thoracentesis yielding 650 mL of dark saturnino-co lored fluid.
--- NOTE | ~2025-03-10 | US_ITS ---
EXAMINATION: US renal BI DATE: 03/14/2025 12:32 INDICATION: Acute on chronic kidney disease. TECHNIQUE: Multiple ultrasound grayscale images of the kidneys were obtained. COMPARISON: None. FINDINGS: The right kidney measures 12.3 x 6.3 x 7.3 cm. The left kidney measures 9.0 x 4.3 x 5.1 cm. There is bilateral diffuse increased renal cortical echogenicity consistent with medical renal disease. Multip le anechoic cysts in both kidneys with largest on the right measuring 7.4 cm and the largest on the l eft measuring 1.9 cm. There is no hydronephrosis in either kidney. No stones identified. The bladder is is decompressed around a Carney catheter which limits evaluation. IMPRESSION: 1. Bilateral renal cysts as well as increased renal cortical echogenicity, the latter consistent wit h medical renal disease. No hydronephrosis. Reviewed, dictated and finalized at location A. IMPRESSION: 1. Bilateral renal cysts as well as increased renal cortical echogenicity, the latter consistent with medical renal disease. No hydronephrosis.
--- NOTE | ~2025-03-10 | XR_ITS ---
XR chest 2V Ordering provider: Lo Dunn MD History: 79 years Female with . sob, weakness . Comparison: November 30, 2024 FINDINGS: MEDIASTINUM: The cardiac silhouette is moderately enlarged. Congestive flori. LUNGS: No pneumothorax. Bilateral basal opacification more on the left side with left pleural effusio n. Bilateral interstitial thickening. OTHER: No free air under the diaphragm. IMPRESSION: Cardiomegaly with cardiac decompensation and pulmonary edema. Bibasilar atelectasis versus pneumonia with left pleural effusion. Reviewed, dictated and finalized at location A.
--- NOTE | ~2025-03-10 | CT_ITS ---
CT Scan of the Chest without Contrast: Clinical Indication: Pulmonary edema versus pneumonia Technique: Contiguous sections were acquired throughout the chest without intravenous contrast. Dose reduction technique was used on this scan by utilizing automated exposure control and iterative recon struction technique. The dose-length product (DLP) was 267.92 mGy-cm. COMPARISON: 03/10/2025 Findings: There is no evidence of any significant mediastinal, hilar or axillary lymphadenopathy. Extensive cor onary artery calcifications are present. There is mild cardiomegaly. No pericardial effusion. Moderate to large bilateral pleural effusions are present. There is partial bilateral lower lobe atel ectasis. Patchy airspace disease in the right middle lobe could reflect atelectatic change/edema vers us possibly pneumonia. There is probable minimal ground glass pulmonary edema additionally in the aer ated lungs. Images through the upper abdomen reveal no abnormalities. Impression: Moderate to large bilateral pleural effusions with bibasilar atelectasis and probable associated mild pulmonary edema. Pneumonia felt to be less likely, though not definitively excluded. Reviewed, dictated and finalized at location . Impression: Moderate to large bilateral pleural effusions with bibasilar atelectasis and pr obable associated mild pulmonary edema. Pneumonia felt to be less likely, thoug h not definitively excluded.
--- NOTE | 2025-03-10 18:55 | ECG_ITS ---
Test Date: 2025-03-10 19:00:32 Measurements Intervals [place] Rate: 78 P: 0 IN: 0 QRS: -29 QRSD: 143 T: 98 QT: 394 QTc: 451 Interpretive Statements ATRIAL FIBRILLATION WITH ABERRANT CONDUCTION OR VENTRICULAR PREMATURE COMPLEXES LEFT BUNDLE BRANCH BLOCK Compared to ECG 11/30/2024 07:57:55 Ventricular premature complex(es) now present Aberrant conduction of supraventricular beat(s) now present Electronically Signed On 03-11-2025 10:07:45 CDT by Johnny Willis M.D.
--- NOTE | 2025-03-10 19:00 | ED_ITS ---
HPI - Weakness General Chief complaint: Weakness Stated complaint: INCREASING WEAKNESS, SOB WITH EXERTION Time Seen by Provider: 03/10/25 18:59 Source: patient and family (Daughter Debbie) Mode of arrival: EMS Limitations: no limitations History of Present Illness HPI Narrative: Patient presents with increasing weakness. The weakness is generalized without any unilateral symptoms. Altered mental status/confusion or slurred speech. She has been feeling short of breath particularly with exertion. No appreciable edema in the bilateral lower extremities. She does have a history of congestive heart failure notes that when she becomes edematous before it has been in her abdomen and this is not present. She also has an underlying history of COPD for which she uses 2 L nasal cannula PRN at baseline. His reported that she had decreased SpO2 she ambulates. She was recently hospitalized for gallbladder issues and plan was to follow-up through [facility]. Due to her weakness she has felt like she might fall but she has not actually fall. No diarrhea. She was feeling nauseated earlier but this is better now. She has had decreased appetite. No cough, fevers, chills, vomiting. Her last bowel movement was a few days ago and this is usual/chronic for her. She takes a stool softener usually but not today due to not feeling well. She is on furosemide and took her dose. Although she has a history of atrial fibrillation she is not on anticoagulation as she had multiple episodes of epistaxis due to this and did discuss the risks versus benefits and this medication was discontinued as a result. She has never required BiPAP for intubation for previous respiratory issues. She denies any chest pain. Related Data Home Medications ?Medication ?Instructions ?Recorded ?Confirmed ?Last Taken ?Type cyclosporine 0.05 % eye drops 1 drop ophthalmic (eye) DAILY 10/24/19 03/11/25 11/29/24 History (Restasis MultiDose) acetaminophen 500 mg tablet 500 mg PO Q6H PRN pain 06/22/24 03/11/25 Unknown History (Tylenol Extra Strength) carvedilol 12.5 mg tablet 12.5 mg PO Q12H 06/22/24 03/11/25 11/29/24 History Allergies Allergy/AdvReac Type Severity Reaction Status Date / Time amiodarone Allergy Severe Unresponsiv Verified 03/07/25 07:41 e [facility] Past Medical History Medical History (Updated 03/11/25 @ 16:44 by Annia Alvarado MD) Pseudohyponatremia Severe pulmonary hypertension Low vitamin B12 level Low vitamin D level Hepatomegaly Liver mass Sliding hiatal hernia Mass of right kidney Hernia, inguinal, left HLD (hyperlipidemia) 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 A-fib Paroxysmal Myocardial infarction Seasonal allergies Hypertensive heart disease with heart failure Surgical History Surgical History Intertrochanteric fracture of right hip ORIF with trochanteric nail September 13, 2023 H/O: hysterectomy H/O cardiac catheterization H/O maze procedure H/O mitral valve repair With a ring Family History Family History Mother Family history of diabetes mellitus in first degree relative Family history of lung cancer Father Family history of coronary artery disease Hypertension Sibling Family history of diabetes mellitus in first degree relative Social History Social History (Updated 03/11/25 @ 06:05 by Julia Sanchez DO) Social History: She with her for over 50 years. She desires to be full code. She smoked half a pack a cigarettes per day for 40 years quit March 14, 2014. No illicit drug use but does occasionally drink alcohol. 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 She has 2 children and 2 grandchildren. Her has dementia and she nominated her daughter Debbie to be the one to make medical decisions for her if she is unable. Smoking packs per day: 0.5 Smoking cigarettes per day: 10.0 Years smoked: 30 Smoking pack-years: 15.00 Smoking status: Former smoker Tobacco type: cigarettes Second hand tobacco smoke exposure: Yes Additional smoking assessment comments: Occasional smoker for 40 years Alcohol intake: never Drinks per week: 0 Alcohol use details: once a year Substance use: never Substance use type: does not use Do You Feel Safe in your Home?: Yes Lack of Transportation: No Lack of Food: Never True Current Housing: I Have Housing Concerned About Future Housing: No Difficulty Paying Gas/Electric Bills: No Difficulty Paying for Meds: No Currently Unemployed: No Education: Bachelor's Degree Difficulty w/ Childcare or Family Care: No Living arrangements: assisted living Additional living arrangements comments: [facility] Occupation/Education: retired Gender identity (if verbalized by the patient): Female Sexual Orientation (if Verbalized by the Patient): Straight or Heterosexual Spiritual care concerns: No Agree to blood products: Yes Exam 2 Narrative: GENERAL: well-nourished, and in no acute distress although appears fatigued. HEAD: Normocephalic, atraumatic. EYES: Non injected, non icteric ENT: Nares clear, no rhinorrhea or epistaxis. Gross auditory acuity intact. NECK: Supple. No meningismus. CHEST: Speaking in full sentences. Tachypneic but non labored, no accessory muscle usage. Poor air movement throughout all, diminished anteriorly and laterally bilaterally on auscultation HEART: IRregularly irregular rate and rhythm. . ABDOMEN: Soft, nondistended. EXTREMITIES: Normal range of motion. No bilateral lower extremity edema. SKIN: Warm, dry, no rash. NEURO: No focal deficits. Alert and oriented. Answering questions. Following commands. Normal speech without aphasia or dysarthria. PSYCH: Normal mood and affect. Course Vital Signs Vital signs: Vital Signs Temperature 98.6 F 03/10/25 18:48 Pulse Rate 84 03/10/25 18:48 Respiratory Rate 18 03/10/25 18:48 Pulse Oximetry 82 L 03/10/25 18:48 Oxygen Delivery Room Air 03/10/25 18:48 Temperature 98.1 F 03/11/25 15:43 Pulse Rate 64 03/11/25 16:00 Respiratory Rate 24 H 03/11/25 15:43 Blood Pressure 134/56 L 03/11/25 15:43 Pulse Oximetry 92 03/11/25 16:00 Oxygen Delivery Nasal Cannula 03/11/25 16:00 Oxygen Flow Rate 2 03/11/25 16:00 Fraction of Inspired Oxygen 30 03/11/25 08:00 Procedures Pulse Oximetry Interpretation Digit-Finger: Pulse Oximetry Interpretation Date: 03/10/25 Pulse Oximetry Interpretation Time: 19:10 Initial pulse oximetry readin Actions Taken: increased FIO2 to (from 1.5LPM to 2LPM) MDM - Weakness MDM Narrative Medical decision making narrative: Patient presents with increasing generalized weakness as well as shortness of breath particularly with exertion. In the emergency department she is afebrile with vital signs notable for mild hypertension (acceptable) as well as hypoxia room air versus NC which she is placed on non-rebreather mask initially but then able to be down titrated back to NC. Patient has rate controlled atrial fibrillation. Multiple underlying cardiac and respiratory comorbidities /risk factors including COPD, heart failure, atrial fibrillation, myocardial infarction, mitral regurgitation and history of V-tach. Mild hypocalcemia (no correction factor given albumin 4.0; intermittently/chronically seen. Ionized calcium ordered through that is a send out lab. Hyperglycemia without anion gap acidosis. Patient's creatinine has chronically been greater than 2 times greater than 3. Today's value represents a degree of JEANETH on CKD. Flags for sepsis. Lactic acid and blood cultures ordered. Will empirically give broad spectrum antibiotics but will start judiciously with 500 cc IV fluids given patient's history of heart failure and her underlying kidney function. Pseudo hyponatremia as it corrects to normal in the setting of her hyperglycemia. She has a leukocytosis and normocytic anemia, the latter stable from previous. She does have pulmonary edema, pleural effusion, BNP >15,000. Will give Lasix after a bit more stable. Lactic acid normal. CRP elevated. Urinalysis is cloudy in with proteinuria but otherwise without signs of infection. Confirmed code status with patient who states she doesn't want to be a vegetable in the event of cardiopulmonary arrest but would want resucitation attempted and, if successfully rescucitated, further consideration/prognosis discussed in that event. Therefore, full code at this time. Patient discussed with chef concierge hospitalist Dr Sanchez who recommends BIPAP (09/24) and nitro paste 1 inch. This is ordered. RT does tell me that patient did not inititally tolerate these settings, saying she felt like she was in a wind tunnel. Changed to 10/5 initially and will require reassessment. Differential Diagnosis Differential diagnosis: Likely acute myocardial infarction, anemia, hypoglycemia, hypothyroidism, rhabdomyolysis, sepsis, dehydration and other (Symptomatic atrial fibrillation, pleural effusion, COPD exacerbation, acute on chronic heart failure exacerbation) Lab Data Attestation: I reviewed the patient's lab results. 03/11/25 03:58 03/11/25 05:20 Labs: Lab Results 03/10/25 03/10/25 03/10/25 Range/Units 19:05 19:06 20:12 WBC 13.0 H (4.5-10.0) K/mm3 RBC 3.68 L (4.2-5.4) M/mm3 Hgb 11.3 L (12.0-15.0) g/dL Hct 36.3 L (37.0-47.0) % MCV 98.6 (80-100) fl MCH 30.7 (26-34) pg MCHC 31.1 L (32-36) g/dl RDW 13.2 (11.5-14.5) % Plt Count 198 (150-375) k/mm3 MPV 10.5 H (7.4-10.4) fl Immature Gran % (Auto) 0.6 H (0-0.5) % Neut % (Auto) 82.9 H (45.5-73.1) % Lymph % (Auto) 6.4 L (18.3-44.2) % [place] % (Auto) 9.0 H (2.6-8.5) % Eos % (Auto) 0.8 (0-4.4) % Baso % (Auto) 0.3 (0.2-1.2) % Lymph # (Auto) 0.83 L (0.9-3.2) K/mm3 [place] # (Auto) 1.2 H (0.1-0.6) K/mm3 Eos # (Auto) 0.1 (0-0.3) K/mm3 Baso # (Auto) 0.0 (0.0-0.1) K/mm3 Abs Immat Gran (auto) 0.08 H (0.00-0.031) K/mm3 Absolute Neuts (auto) 10.8 H (1.3-6.7) K/mm3 Absolute Nucleated RBC 0.000 (0.0-0.012) K/mm3 Nucleated RBC % 0.0 (0.0-0.2) % PT 14.2 (11.1-14.7) Seconds INR 1.1 APTT 25.1 (22.3-36.8) Seconds D-Dimer 1.36 H (<0.48) ug/mL Sodium 136 L (137-145) mmol/L Potassium 3.8 (3.4-5.0) mmol/L Chloride 99 (98-107) mmol/L Carbon Dioxide 25 (22-30) mmol/L Anion Gap 12 (4-12) mmol/L BUN 59 H D (7-17) mg/dL Creatinine 3.92 H (0.7-1.0) mg/dL Estim Creat Clear Calc 10 ml/min Estimated GFR 11 L (59 - ) Glucose 192 H (65-110) mg/dL POC Capillary Glucose (65-105) mg/dl Lactic Acid 1.0 (0.7-2.0) mmol/L Calcium 8.1 L (8.4-10.2) mg/dL Ionized Calcium Luci Phosphorus (2.5-4.5) mg/dL Magnesium (1.6-2.3) mg/dL Total Bilirubin 0.9 (0.2-1.3) mg/dL AST 19 (14-36) U/L ALT 14 (6-35) U/L Alkaline Phosphatase 73 (38-126) U/L Total Creatine Kinase 31 (30-135) U/L Troponin I 0.016 (0.000-0.034) ng/mL C-Reactive Protein 3.7 H (<1.0) mg/dL NT-Pro-B Natriuret Pep 41686 H (19.9-100) pg/mL Total Protein 7.0 (6.3-8.2) g/dL Albumin 4.0 (3.5-5.1) g/dL Lipase 28 (23-300) U/L TSH 0.516 (0.465-4.680) uIU/mL Urine Color (Yellow) Urine Appearance (Clear) Urine pH (5.0-9.0) Ur Specific [place] (1.001-1.035) Urine Protein (Negative) mg/dL Urine Glucose (UA) (Negative) mg/dL Urine Ketones (Negative) mg/dL Ur Blood (Man) (Negative) Urine Nitrate (Negative) Urine Bilirubin (Negative) Urine Urobilinogen (<2.0) mg/dL Leukocyte Esterase Rfl (Negative) HERNAN/UL Urine RBC (0-2) /hpf Urine WBC (0-3) /hpf Ur Squamous Epith Cells (Few) /hpf Urine Bacteria /hpf Urine Casts Hyaline Casts (None) /lpf Nasal MRSA (PCR) (NOT DETECTE) Influenza A (RT-PCR) Negative (Negative) Influenza B (RT-PCR) Negative (Negative) RSV (RT-PCR) Negative (Negative) SARS-CoV-2 RNA (RT-PCR) Negative (Negative) 03/10/25 03/10/25 03/10/25 Range/Units 20:21 21:11 21:55 WBC (4.5-10.0) K/mm3 RBC (4.2-5.4) M/mm3 Hgb (12.0-15.0) g/dL Hct (37.0-47.0) % MCV (80-100) fl MCH (26-34) pg MCHC (32-36) g/dl RDW (11.5-14.5) % Plt Count (150-375) k/mm3 MPV (7.4-10.4) fl Immature Gran % (Auto) (0-0.5) % Neut % (Auto) (45.5-73.1) % Lymph % (Auto) (18.3-44.2) % [place] % (Auto) (2.6-8.5) % Eos % (Auto) (0-4.4) % Baso % (Auto) (0.2-1.2) % Lymph # (Auto) (0.9-3.2) K/mm3 [place] # (Auto) (0.1-0.6) K/mm3 Eos # (Auto) (0-0.3) K/mm3 Baso # (Auto) (0.0-0.1) K/mm3 Abs Immat Gran (auto) (0.00-0.031) K/mm3 Absolute Neuts (auto) (1.3-6.7) K/mm3 Absolute Nucleated RBC (0.0-0.012) K/mm3 Nucleated RBC % (0.0-0.2) % PT (11.1-14.7) Seconds INR APTT (22.3-36.8) Seconds D-Dimer (<0.48) ug/mL Sodium (137-145) mmol/L Potassium (3.4-5.0) mmol/L Chloride (98-107) mmol/L Carbon Dioxide (22-30) mmol/L Anion Gap (4-12) mmol/L BUN (7-17) mg/dL Creatinine (0.7-1.0) mg/dL Estim Creat Clear Calc ml/min Estimated GFR (59 - ) Glucose (65-110) mg/dL POC Capillary Glucose (65-105) mg/dl Lactic Acid (0.7-2.0) mmol/L Calcium (8.4-10.2) mg/dL Ionized Calcium Luci Pending Phosphorus (2.5-4.5) mg/dL Magnesium (1.6-2.3) mg/dL Total Bilirubin (0.2-1.3) mg/dL AST (14-36) U/L ALT (6-35) U/L Alkaline Phosphatase (38-126) U/L Total Creatine Kinase (30-135) U/L Troponin I (0.000-0.034) ng/mL C-Reactive Protein (<1.0) mg/dL NT-Pro-B Natriuret Pep (19.9-100) pg/mL Total Protein (6.3-8.2) g/dL Albumin (3.5-5.1) g/dL Lipase (23-300) U/L TSH (0.465-4.680) uIU/mL Urine Color Yellow (Yellow) Urine Appearance Cloudy H (Clear) Urine pH 5.0 (5.0-9.0) Ur Specific [place] 1.016 (1.001-1.035) Urine Protein 3+ H (Negative) mg/dL Urine Glucose (UA) Trace H (Negative) mg/dL Urine Ketones Negative (Negative) mg/dL Ur Blood (Man) Negative (Negative) Urine Nitrate Negative (Negative) Urine Bilirubin Negative (Negative) Urine Urobilinogen 1.0 (<2.0) mg/dL Leukocyte Esterase Rfl Negative (Negative) HERNAN/UL Urine RBC 0-2 (0-2) /hpf Urine WBC 0-5 (0-3) /hpf Ur Squamous Epith Cells None seen (Few) /hpf Urine Bacteria None seen /hpf Urine Casts >20 Hyaline Casts Present (None) /lpf Nasal MRSA (PCR) Not detected (NOT DETECTE) Influenza A (RT-PCR) (Negative) Influenza B (RT-PCR) (Negative) RSV (RT-PCR) (Negative) SARS-CoV-2 RNA (RT-PCR) (Negative) 03/11/25 03/11/25 03/11/25 Range/Units 00:54 03:58 05:20 WBC 11.5 H (4.5-10.0) K/mm3 RBC 3.30 L (4.2-5.4) M/mm3 Hgb 10.1 L (12.0-15.0) g/dL Hct 33.1 L (37.0-47.0) % MCV 100.3 H (80-100) fl MCH 30.6 (26-34) pg MCHC 30.5 L (32-36) g/dl RDW 13.2 (11.5-14.5) % Plt Count 145 L (150-375) k/mm3 MPV 10.6 H (7.4-10.4) fl Immature Gran % (Auto) (0-0.5) % Neut % (Auto) (45.5-73.1) % Lymph % (Auto) (18.3-44.2) % [place] % (Auto) (2.6-8.5) % Eos % (Auto) (0-4.4) % Baso % (Auto) (0.2-1.2) % Lymph # (Auto) (0.9-3.2) K/mm3 [place] # (Auto) (0.1-0.6) K/mm3 Eos # (Auto) (0-0.3) K/mm3 Baso # (Auto) (0.0-0.1) K/mm3 Abs Immat Gran (auto) (0.00-0.031) K/mm3 Absolute Neuts (auto) (1.3-6.7) K/mm3 Absolute Nucleated RBC (0.0-0.012) K/mm3 Nucleated RBC % (0.0-0.2) % PT (11.1-14.7) Seconds INR APTT (22.3-36.8) Seconds D-Dimer (<0.48) ug/mL Sodium 137 (137-145) mmol/L Potassium 3.6 (3.4-5.0) mmol/L Chloride 101 (98-107) mmol/L Carbon Dioxide 27 (22-30) mmol/L Anion Gap 9 (4-12) mmol/L BUN 57 H (7-17) mg/dL Creatinine 3.83 H (0.7-1.0) mg/dL Estim Creat Clear Calc 11 ml/min Estimated GFR 11 L (59 - ) Glucose 117 H (65-110) mg/dL POC Capillary Glucose 138 H (65-105) mg/dl Lactic Acid (0.7-2.0) mmol/L Calcium 7.8 L (8.4-10.2) mg/dL Ionized Calcium Luci Phosphorus 5.7 H (2.5-4.5) mg/dL Magnesium 2.3 (1.6-2.3) mg/dL Total Bilirubin (0.2-1.3) mg/dL AST (14-36) U/L ALT (6-35) U/L Alkaline Phosphatase (38-126) U/L Total Creatine Kinase (30-135) U/L Troponin I (0.000-0.034) ng/mL C-Reactive Protein (<1.0) mg/dL NT-Pro-B Natriuret Pep (19.9-100) pg/mL Total Protein (6.3-8.2) g/dL Albumin (3.5-5.1) g/dL Lipase (23-300) U/L TSH (0.465-4.680) uIU/mL Urine Color (Yellow) Urine Appearance (Clear) Urine pH (5.0-9.0) Ur Specific [place] (1.001-1.035) Urine Protein (Negative) mg/dL Urine Glucose (UA) (Negative) mg/dL Urine Ketones (Negative) mg/dL Ur Blood (Man) (Negative) Urine Nitrate (Negative) Urine Bilirubin (Negative) Urine Urobilinogen (<2.0) mg/dL Leukocyte Esterase Rfl (Negative) HERNAN/UL Urine RBC (0-2) /hpf Urine WBC (0-3) /hpf Ur Squamous Epith Cells (Few) /hpf Urine Bacteria /hpf Urine Casts Hyaline Casts (None) /lpf Nasal MRSA (PCR) (NOT DETECTE) Influenza A (RT-PCR) (Negative) Influenza B (RT-PCR) (Negative) RSV (RT-PCR) (Negative) SARS-CoV-2 RNA (RT-PCR) (Negative) ABG Data ABG results: 03/10/25 20:23 VBG pH 7.338 VBG pCO2 41.8 L VBG pO2 52.1 H VBG HCO3 21.9 L O2 Delivery Device Room air O2 Liters/Min Not Reportable FiO2 21 Imaging Data Radiologist's impression: Impressions Chest X-Ray 03/10/25 19:46 IMPRESSION: Cardiomegaly with cardiac decompensation and pulmonary edema. Bibasilar atelectasis versus pneumonia with left pleural effusion. Chest/Abdomen/Pelvis CTA 03/10/25 21:30 IMPRESSION: CHEST: 1. No pulmonary embolism. 2. Cardiomegaly. 3. Bilateral large pleural effusion with adjacent atelectasis versus pneumonia. 4. Highly suggestive pulmonary edema seen bilaterally. 5. Trace of pericardial effusion. 6. Hilar and mediastinal lymphadenopathy. ABDOMEN/PELVIS: 1. No evidence of appendicitis, diverticulitis or intestinal obstruction. 2. Hepatomegaly with enhancing area in the left lobe. Mass is highly suggestive. Further evaluation advised. 3. Distended gallbladder with no stones. Surrounding edema is seen. No change from previous examination. 4. Small cyst seen between the gallbladder and the liver. 5. Sliding hiatus hernia 6. Enhancing mass in the right kidney laterally which may be renal cell carcinoma. Further evaluation advised. 7. Isodense lesion is seen posterior to the right kidney and in the left kidney upper pole. Follow-up advised. 8. Bilateral renal stones. 9. Bilateral renal cysts. 10. Free fluid in the pelvis. Evidence of perforation is not demonstrated. Follow-up advised. 11. Slightly thickened sigmoid colon. 12. Fat-containing left left inguinal hernia with minimal fluid.. ECG Data EKG #1: Attestation: I personally reviewed and interpreted this ECG as follows: ECG completion date: 03/10/25 ECG completion time: 19:00 Interpretation: Irregularly irregular rhythm consistent with atrial fibrillation at 70 beats per minute. There are some aberrant beats. QRS 143. QT/QTC 394/428. Intraventricular conduction delay. Good R-wave progression across the precordial leads. No T-wave inversion. Discharge Plan Discharge Clinical Impression: Hypocalcemia, Generalized weakness, Shortness of breath on exertion, Hyperglycemia due to diabetes mellitus, Acute kidney injury superimposed on CKD, Pseudohyponatremia, Leukocytosis, Normocytic anemia, Cardiomegaly, CRP elevated, Bilateral pleural effusion, Hilar lymphadenopathy, Mediastinal lymphadenopathy, Hepatomegaly, Liver mass, Sliding hiatal hernia, Mass of right kidney, Bilateral renal cysts, Hernia, inguinal, left Pulmonary edema Qualifiers: Chronicity: acute Qualified Code(s): J81.0 - Acute pulmonary edema Acute on chronic heart failure Qualifiers: Heart failure type: right-sided Qualified Code(s): I50.813 - Acute on chronic right heart failure Patient Disposition: Still a Patient Condition: Serious
--- OUTSIDE RECORDS SUMMARY | 2025-03-10 19:18 | XMS_ITS | Encounter Summary ---
Author Organization [facility] Address [address] [place] [address] Care Team Providers Care Boiler House Supervisor Name Role Phone Unavailable Primary Care Provider Unavailabl e Encounter Details Date Type Department Care Team (Late st Contact Info) Description 03/08/2025 External Device Data [facility] ABSTRACTION Provider, Abstract [...]
--- OUTSIDE RECORDS SUMMARY | 2025-03-10 19:18 | XMS_ITS | Clinical Summary ---
Author Organization [facility] Address [address] [place] [address] Care Team Providers Care Trial Consultant Name Role Phone Unavailable Primary Care Provider Unavailabl e Medications cetirizine (ZyrTEC) 10 mg tablet Take 1 Tablet (10 mg) by mouth daily. 20 Tablet 01/18/2025 Active HYDROcodone-shadia taminophen (NORCO) 5-325 mg tablet Take 1 Tablet by mouth every 6 hours as needed for pain rated 4-6. Max Daily Amount: 4 Tablets 10 Tablet 03/09/2025 2:12 PM CDT 03/09/2025 Active ondansetron (ZOFRAN ODT) 4 mg Tablet, Rapid Dissolve DISSOLVE 1 TABLETS BY MOUTH EVERY 8 HOURS NEEDED FOR NAUSEA AND VOMITING 10 Tablet 03/09/2025 2:12 PM CDT 03/09/2025 Active Encounters Date Type Department Care Team Description 03/08/2025 External Device Data [facility] ABSTRACTION Provider, Abstract 03/06/2025 External Device Data [facility] ABSTRACTION Provider, [...] RX [facility] [employer] (INTERNAL) [facility] RX [employer] Medicare Part D
[2025-03-10 19:27] LABS: Basophils Percent Auto 0.3 % (0.2-1.2); Eosinophils Absolute Auto 0.1 K/mm3 (0-0.3); Eosinophils Percent Auto 0.8 % (0-4.4); Hematocrit 36.3 % (37.0-47.0); Hemoglobin 11.3 g/dL (12.0-15.0); Immature Granulocyte Absolute 0.08 K/mm3 (0.00-0.031); Immature Granulocyte Percent A 0.6 % (0-0.5); Lymphocytes Absolute Auto 0.83 K/mm3 (0.9-3.2); Lymphocytes Percent Auto 6.4 % (18.3-44.2); Mean Corpuscular HGB Conc 31.1 g/dl (32-36); Mean Corpuscular Hemoglobin 30.7 pg (26-34); Mean Corpuscular Volume 98.6 fl (80-100); Mean Platelet Volume 10.5 fl (7.4-10.4); Monocytes Absolute Auto 1.2 K/mm3 (0.1-0.6); Neutrophils Absolute Auto 10.8 K/mm3 (1.3-6.7); Neutrophils Percent Auto 82.9 % (45.5-73.1); Platelet Count Result 198 k/mm3 (150-375); Red Blood Count 3.68 M/mm3 (4.2-5.4); Red Cell Distribution Width 13.2 % (11.5-14.5)
--- NOTE | 2025-03-10 19:31 | PCRCNOTE ---
RC order no rec'd until 1930
[2025-03-10 19:37] LABS: Alanine Aminotransferase 14 U/L (6-35); Alkaline Phosphatase 73 U/L (38-126); Anion Gap 12 mmol/L (4-12); Aspartate Amino Transferase 19 U/L (14-36); Bilirubin,Total 0.9 mg/dL (0.2-1.3); Blood Urea Nitrogen 59 mg/dL (7-17); Calcium 8.1 mg/dL (8.4-10.2); Carbon Dioxide 25 mmol/L (22-30); Chloride 99 mmol/L (98-107); Creatine Kinase 31 U/L (30-135); Estimated CRCL calculation 10 ml/min; Estimated Glomerular Filt Rate 11; Glucose 192 mg/dL (65-110); Lipase 28 U/L (23-300); Potassium 3.8 mmol/L (3.4-5.0); Sodium 136 mmol/L (137-145)
[2025-03-10 19:52] LABS: NT Pro B Type Natriuretic Pept 15200 pg/mL (19.9-100); Troponin I 0.016 ng/mL (0.000-0.034)
[2025-03-10 20:01] LABS: D Dimer 1.36 ug/mL (<0.48)
[2025-03-10 20:04] LABS: Influenza A QL RT-PCR Negative (Negative); Influenza B QL RT-PCR Negative (Negative); RSV RNA, RT-PCR Negative (Negative); SARS-CoV-2 RNA PCR Negative (Negative)
[2025-03-10 20:10] LABS: Thyroid Stimulating Hormone 0.516 uIU/mL (0.465-4.680)
[2025-03-10] MEDS: CEFEPIME 1 GM/NS 50 ML 1 GM/50 ML BAG IVPB (20:22)
[2025-03-10] MEDS: SODIUM CHLORIDE 0.9% IV 500 ML 999 ML IV CONT (20:22)
[2025-03-10 20:27] LABS: Fractional Inspired Oxygen 21 %; HCO3 VBG 21.9 mEq/l (24.0-30.0); PCO2 VBG 41.8 mmHg (42.0-48.0); PO2 VBG 52.1 mmHg (35.0-45.0); pH VBG 7.338 (7.300-7.400)
[2025-03-10 20:36] LABS: CRP 3.7 mg/dL (<1.0)
[2025-03-10 20:37] LABS: INR 1.1; Prothrombin Time 14.2 Seconds (11.1-14.7)
[2025-03-10 20:38] LABS: Partial Thromboplastin Time 25.1 Seconds (22.3-36.8)
[2025-03-10 20:58] LABS: Device ROOM AIR
[2025-03-10] MEDS: VANCOMYCIN 1,000 MG/NS 250 ML 1,000 MG/250 ML BAG 250 MG IVPB (21:08)
[2025-03-10 21:58] LABS: Add Urine Microscopic? YES; Appearance Urine Cloudy (Clear); Bacteria Urine None Seen /hpf; Bilirubin Urine Negative (Negative); Blood Urine Negative (Negative); Color Urine Yellow (Yellow); Glucose Urine UA Trace mg/dL (Negative); Hyaline Casts Urine Present /lpf; Ketones Urine Negative (Negative); Leukocyte Esterase Ur Negative LEU/UL (Negative); Nitrate Urine Negative (Negative); Non Pathogenic Casts >20; Protein Urine 3+ mg/dL (Negative); RBC Urine 0-2 /hpf (0-2); Specific Grav Ur 1.016 (1.001-1.035); Squamous Epithelial Cell Urine None Seen /hpf (Few); WBC Urine 0-5 /hpf (0-3)
[2025-03-10] MEDS: FUROSEMIDE INJ 40 MG/4 ML VIAL IV PUSH (22:26)
[2025-03-10 23:08] LABS: MRSA (PCR) NOT DETECTED (NOT DETECTE)
[2025-03-10] MEDS: NITROGLYCERIN OINTMENT 1 INCH DOSE TRANSDERM (23:15)
[2025-03-11] VITALS (24 sets, daily range): BP systolic 108–168; BP diastolic 54–78; PULSE 64–91; RESP 16–41; TEMP 36.7–37.9; O2SAT 91–100; BMI 23.3
--- NOTE | 2025-03-11 00:20 | ADMGEN ---
This patient, Vicente Schofield, was admitted to IMU Room 202-01. Patient/family oriented to hospital policies and general routines including ID bracelet, bed and alarms, visiting hours, pain management, procedures, bathroom and other care routines, personal items, smoking policy, room service/diet, and visiting hours. Information on how to activate the Rapid Response Team has been discussed. Patient/Family are encouraged to report perceived risks to care and to ask questions if they do not understand what they are told or what they should do.
[2025-03-11 01:03] LABS: Glucose Point of Care 138 mg/dl (65-105)
--- NOTE | 2025-03-11 01:56 | P.HP_ITS ---
H&P: HPI History of Present Illness Date/Time: 03/11/25 01:56 Chief Complaint: Shortness of breath Narrative: 79-year-old female with a past medical history moderate to severe pulmonary hypertension, heart failure with preserved ejection fraction, chronic kidney disease stage 4 paroxysmal atrial fibrillation not on anticoagulation due to history of recurrent epistaxis who presented to the ER from [place] for evaluation of dyspnea on exertion. The patient had been hospitalized 03/08/2025 through 03/09/2025 due to right upper quadrant pain and found to have imaging suggestive of possible biliary stricture and or mass. She had received 1 L fluids while hospitalized. Her CA 19-9 was within normal limits. She was set up with outpatient follow-up at [facility] for endoscopic ultrasound. She reported that since shortly after returning home she has become progressively more short of breath which is worse with exertion. She has become progressively more tachypneic. When she arrived to the ER her respiratory rate was in the mid 30s to low 40s. She denied having any chest pain, cough, congestion, fevers or chills. She reports that she had not had much D because she was only home for 1 day and did not have much of an appetite. She had not had any actual vomiting but was still having some nausea. She reports that she has been having difficulty urinating. She states she can never used a pure wick catheters. At the time of my evaluation the patient stated that she really needed to urinate but could not pass urine. Bladder scan demonstrated almost just below 400 mL of retained urine. Carney catheter was placed and patient had immediate return of 300 mL of urine. Patient denied having any dysuria hematuria. She has been having less than normal bowel movements but again has not been eating. She reports that she usually has lower extremity edema or abdominal swelling when she has heart failure so she is surprised that she is being admitted for heart failure currently. In the ER will chest x-ray and CT demonstrated enlarging bilateral pleural effusions with CTA of chest abdomen and pelvis demonstrating bilateral large pleural effusion and pulmonary edema pattern. CT also demonstrated hepatomegaly with enhancing area left lobe highly suggestive of mass, distended gallbladder without stones with surrounding edema unchanged from prior exam sliding hiatal hernia, right kidney mass which may be concerning for renal cell carcinoma, foot fluid in the pelvis, slightly thickened sigmoid colon fat containing left inguinal hernia. There is also some scattered lymphadenopathy. Review of Systems 2 Review of Systems: 12 systems were reviewed with pertinent positives and negatives per HPI. Except as documented in the HPI, all other systems were reviewed and are negative. [facility] Past Medical History Medical History (Updated 03/11/25 @ 06:12 by Julia Sanchez DO) Pseudohyponatremia Severe pulmonary hypertension Low vitamin B12 level Low vitamin D level Hepatomegaly Liver mass Sliding hiatal hernia Mass of right kidney Hernia, inguinal, left HLD (hyperlipidemia) 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 A-fib Paroxysmal Myocardial infarction Seasonal allergies Hypertensive heart disease with heart failure Surgical History Surgical History Intertrochanteric fracture of right hip ORIF with trochanteric nail September 13, 2023 H/O: hysterectomy H/O cardiac catheterization H/O maze procedure H/O mitral valve repair With a ring Family History Family History Mother Family history of diabetes mellitus in first degree relative Family history of lung cancer Father Family history of coronary artery disease Hypertension Sibling Family history of diabetes mellitus in first degree relative Social History Social History (Updated 03/11/25 @ 06:05 by Julia Sanchez DO) Social History: She with her for over 50 years. She desires to be full code. She smoked half a pack a cigarettes per day for 40 years quit March 14, 2014. No illicit drug use but does occasionally drink alcohol. 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 She has 2 children and 2 grandchildren. Her has dementia and she nominated her daughter Debbie to be the one to make medical decisions for her if she is unable. Smoking packs per day: 0.5 Smoking cigarettes per day: 10.0 Years smoked: 30 Smoking pack-years: 15.00 Smoking status: Former smoker Tobacco type: cigarettes Second hand tobacco smoke exposure: Yes Additional smoking assessment comments: Occasional smoker for 40 years Alcohol intake: never Drinks per week: 0 Alcohol use details: once a year Substance use: never Substance use type: does not use Do You Feel Safe in your Home?: Yes Lack of Transportation: No Lack of Food: Never True Current Housing: I Have Housing Concerned About Future Housing: No Difficulty Paying Gas/Electric Bills: No Difficulty Paying for Meds: No Currently Unemployed: No Education: Bachelor's Degree Difficulty w/ Childcare or Family Care: No Living arrangements: assisted living Additional living arrangements comments: [place] Occupation/Education: retired Gender identity (if verbalized by the patient): Female Sexual Orientation (if Verbalized by the Patient): Straight or Heterosexual Spiritual care concerns: No Agree to blood products: Yes Meds Home Medications and Allergies Home Medications ?Medication ?Instructions ?Recorded ?Confirmed ?Type cyclosporine 0.05 % eye drops 1 drop ophthalmic (eye) DAILY 10/24/19 03/11/25 History (Restasis MultiDose) diltiazem HCl 240 mg 240 mg PO DAILY #30 caps 12/30/19 03/11/25 Rx capsule,extended release 24 hr acetaminophen 500 mg tablet 500 mg PO Q6H PRN pain 06/22/24 03/11/25 History (Tylenol Extra Strength) carvedilol 12.5 mg tablet 12.5 mg PO Q12H 06/22/24 03/11/25 History blood sugar diagnostic (FreeStyle #100 ea 08/30/24 03/11/25 Rx Test strips) lancets 28 gauge (FreeStyle #100 ea 08/30/24 03/11/25 Rx Lancets) ezetimibe 10 mg tablet 10 mg PO DAILY #90 tabs 09/28/24 03/11/25 Rx furosemide 40 mg tablet 40 mg PO DAILY #90 tabs 11/06/24 03/11/25 Rx hydralazine 25 mg tablet 25 mg PO BID #180 tabs 11/08/24 03/11/25 Rx potassium chloride 20 mEq 20 meq PO .COMPLEX #45 tabs 12/15/24 03/11/25 Rx tablet,extended release(part/cryst) (Klor-Con M) cetirizine 10 mg tablet 10 mg PO DAILY #20 tabs 01/18/25 03/11/25 Rx hydrocodone 5 mg-acetaminophen 325 1 tablet PO Q6H PRN Pain Rated 4-6 03/09/25 03/11/25 Rx mg tablet #10 tabs ondansetron 4 mg disintegrating 4 mg PO Q8H PRN nausea and 03/09/25 03/11/25 Rx tablet vomiting #10 tabs Allergies Allergy/AdvReac Type Severity Reaction Status Date / Time amiodarone Allergy Severe Unresponsiv Verified 03/07/25 07:41 e Vital Signs Vital Signs - 24 hr 03/10/25 18:48 03/10/25 18:57 03/10/25 19:02 Temperature 98.6 F Pulse Rate 84 84 Respiratory Rate 18 Blood Pressure 144/63 H Pulse Oximetry 82 L Oxygen Delivery Room Air Oxygen Flow Rate 03/10/25 19:02 03/10/25 19:02 03/10/25 19:31 Temperature Pulse Rate 83 91 Respiratory Rate 40 H 35 H Blood Pressure 146/75 H 153/69 H Pulse Oximetry 93 93 97 Oxygen Delivery Non-Rebreather Mask Oxygen Flow Rate 2 03/10/25 20:01 03/10/25 20:31 03/10/25 22:26 Temperature Pulse Rate 87 85 94 Respiratory Rate 41 H 27 H 37 H Blood Pressure 153/82 H 165/87 H 151/75 H Pulse Oximetry 89 L 94 94 Oxygen Delivery Oxygen Flow Rate 03/10/25 23:45 03/11/25 00:11 03/11/25 00:19 Temperature 98.5 F Pulse Rate 88 86 88 Respiratory Rate 31 H 18 41 H Blood Pressure 150/78 H Pulse Oximetry 96 100 96 Oxygen Delivery BiPAP BiPAP Oxygen Flow Rate 03/11/25 01:10 Temperature Pulse Rate Respiratory Rate Blood Pressure Pulse Oximetry Oxygen Delivery BiPAP Oxygen Flow Rate Exam 2 Narrative: Weight 67.6 kg BMI 23.3 Const: Other: Acutely ill-appearing, appears stated age, frail HENMT: Other: Mucous membranes are tacky oral exam limited due to BiPAP, head is normocephalic atraumatic Eyes: Other: Pupils are equal and reactive, positive conjunctival pallor, no scleral icterus Neck: Other: No JVD, no lymphadenopathy, trachea midline Resp: Other: Tachypnea is intermittent but improved from prior now that she is on BiPAP respiratory rate is down to the mid 20s, decreased breath sounds bilateral posterior lung salas Cardio: Other: Irregular rate, irregular rhythm, 2+ bilateral radial pedal pulses, no JVD GI: Other: Soft, mildly distended, nontender, normoactive bowel sounds : Other: Suprapubic fullness, unable to urinate with pure wick in place Skin: Other: Generalized pallor, non jaundice Neuro: Other: Alert oriented x4, speech is clear, no facial asymmetry, moves all extremities equally, no localizing neurologic deficits noted during conversation exam limited due to patient condition Extrem: Other: No clubbing, cyanosis or edema equal strength bilateral upper and lower extremities Psych: Other: Appropriate mood and affect, cooperative, fair judgment and insight H&P: Results Labs Labs: Laboratory Tests 03/10/25 19:05 03/10/25 19:06 03/10/25 03/10/25 03/10/25 19:05 19:06 20:12 WBC 13.0 H RBC 3.68 L Hgb 11.3 L Hct 36.3 L MCV 98.6 MCH 30.7 MCHC 31.1 L RDW 13.2 Plt Count 198 MPV 10.5 H Immature Gran % (Auto) 0.6 H Neut % (Auto) 82.9 H Lymph % (Auto) 6.4 L [place] % (Auto) 9.0 H Eos % (Auto) 0.8 Baso % (Auto) 0.3 Lymph # (Auto) 0.83 L [place] # (Auto) 1.2 H Eos # (Auto) 0.1 Baso # (Auto) 0.0 Abs Immat Gran (auto) 0.08 H Absolute Neuts (auto) 10.8 H Absolute Nucleated RBC 0.000 Nucleated RBC % 0.0 PT 14.2 INR 1.1 APTT 25.1 D-Dimer 1.36 H VBG pH VBG pCO2 VBG pO2 VBG HCO3 O2 Delivery Device O2 Liters/Min FiO2 Sodium 136 L Potassium 3.8 Chloride 99 Carbon Dioxide 25 Anion Gap 12 BUN 59 H D Creatinine 3.92 H Estim Creat Clear Calc 10 Estimated GFR 11 L Glucose 192 H POC Capillary Glucose Lactic Acid 1.0 Calcium 8.1 L Ionized Calcium Luci Total Bilirubin 0.9 AST 19 ALT 14 Alkaline Phosphatase 73 Total Creatine Kinase 31 Troponin I 0.016 C-Reactive Protein 3.7 H NT-Pro-B Natriuret Pep 75395 H Total Protein 7.0 Albumin 4.0 Lipase 28 TSH 0.516 Urine Color Urine Appearance Urine pH Ur Specific [place] Urine Protein Urine Glucose (UA) Urine Ketones Ur Blood (Man) Urine Nitrate Urine Bilirubin Urine Urobilinogen Leukocyte Esterase Rfl Urine RBC Urine WBC Ur Squamous Epith Cells Urine Bacteria Urine Casts Hyaline Casts Nasal MRSA (PCR) Influenza A (RT-PCR) Negative Influenza B (RT-PCR) Negative RSV (RT-PCR) Negative SARS-CoV-2 RNA (RT-PCR) Negative 03/10/25 03/10/25 03/10/25 20:21 20:23 21:11 WBC RBC Hgb Hct MCV MCH MCHC RDW Plt Count MPV Immature Gran % (Auto) Neut % (Auto) Lymph % (Auto) [place] % (Auto) Eos % (Auto) Baso % (Auto) Lymph # (Auto) [place] # (Auto) Eos # (Auto) Baso # (Auto) Abs Immat Gran (auto) Absolute Neuts (auto) Absolute Nucleated RBC Nucleated RBC % PT INR APTT D-Dimer VBG pH 7.338 VBG pCO2 41.8 L VBG pO2 52.1 H VBG HCO3 21.9 L O2 Delivery Device Room air O2 Liters/Min Not Reportable FiO2 21 Sodium Potassium Chloride Carbon Dioxide Anion Gap BUN Creatinine Estim Creat Clear Calc Estimated GFR Glucose POC Capillary Glucose Lactic Acid Calcium Ionized Calcium Luci Pending Total Bilirubin AST ALT Alkaline Phosphatase Total Creatine Kinase Troponin I C-Reactive Protein NT-Pro-B Natriuret Pep Total Protein Albumin Lipase TSH Urine Color Yellow Urine Appearance Cloudy H Urine pH 5.0 Ur Specific [place] 1.016 Urine Protein 3+ H Urine Glucose (UA) Trace H Urine Ketones Negative Ur Blood (Man) Negative Urine Nitrate Negative Urine Bilirubin Negative Urine Urobilinogen 1.0 Leukocyte Esterase Rfl Negative Urine RBC 0-2 Urine WBC 0-5 Ur Squamous Epith Cells None seen Urine Bacteria None seen Urine Casts >20 Hyaline Casts Present Nasal MRSA (PCR) Influenza A (RT-PCR) Influenza B (RT-PCR) RSV (RT-PCR) SARS-CoV-2 RNA (RT-PCR) 03/10/25 03/11/25 21:55 00:54 WBC RBC Hgb Hct MCV MCH MCHC RDW Plt Count MPV Immature Gran % (Auto) Neut % (Auto) Lymph % (Auto) [place] % (Auto) Eos % (Auto) Baso % (Auto) Lymph # (Auto) [place] # (Auto) Eos # (Auto) Baso # (Auto) Abs Immat Gran (auto) Absolute Neuts (auto) Absolute Nucleated RBC Nucleated RBC % PT INR APTT D-Dimer VBG pH VBG pCO2 VBG pO2 VBG HCO3 O2 Delivery Device O2 Liters/Min FiO2 Sodium Potassium Chloride Carbon Dioxide Anion Gap BUN Creatinine Estim Creat Clear Calc Estimated GFR Glucose POC Capillary Glucose 138 H Lactic Acid Calcium Ionized Calcium Luci Total Bilirubin AST ALT Alkaline Phosphatase Total Creatine Kinase Troponin I C-Reactive Protein NT-Pro-B Natriuret Pep Total Protein Albumin Lipase TSH Urine Color Urine Appearance Urine pH Ur Specific [place] Urine Protein Urine Glucose (UA) Urine Ketones Ur Blood (Man) Urine Nitrate Urine Bilirubin Urine Urobilinogen Leukocyte Esterase Rfl Urine RBC Urine WBC Ur Squamous Epith Cells Urine Bacteria Urine Casts Hyaline Casts Nasal MRSA (PCR) Not detected Influenza A (RT-PCR) Influenza B (RT-PCR) RSV (RT-PCR) SARS-CoV-2 RNA (RT-PCR) Impressions Chest X-Ray 03/10/25 19:46 IMPRESSION: Cardiomegaly with cardiac decompensation and pulmonary edema. Bibasilar atelectasis versus pneumonia with left pleural effusion. Chest/Abdomen/Pelvis CTA 03/10/25 21:30 IMPRESSION: CHEST: 1. No pulmonary embolism. 2. Cardiomegaly. 3. Bilateral large pleural effusion with adjacent atelectasis versus pneumonia. 4. Highly suggestive pulmonary edema seen bilaterally. 5. Trace of pericardial effusion. 6. Hilar and mediastinal lymphadenopathy. ABDOMEN/PELVIS: 1. No evidence of appendicitis, diverticulitis or intestinal obstruction. 2. Hepatomegaly with enhancing area in the left lobe. Mass is highly suggestive. Further evaluation advised. 3. Distended gallbladder with no stones. Surrounding edema is seen. No change from previous examination. 4. Small cyst seen between the gallbladder and the liver. 5. Sliding hiatus hernia 6. Enhancing mass in the right kidney laterally which may be renal cell carcinoma. Further evaluation advised. 7. Isodense lesion is seen posterior to the right kidney and in the left kidney upper pole. Follow-up advised. 8. Bilateral renal stones. 9. Bilateral renal cysts. 10. Free fluid in the pelvis. Evidence of perforation is not demonstrated. Follow-up advised. 11. Slightly thickened sigmoid colon. 12. Fat-containing left left inguinal hernia with minimal fluid.. EKG: All imaging and EKGs personally reviewed and interpreted. And unless stated otherwise agree with radiologic and cardiology interpretation. Assessment and Plan Assessment and plan (1) Acute hypoxic respiratory failure: Code(s): J96.01 - Acute respiratory failure with hypoxia Status: Acute (2) Pulmonary edema: Qualifiers: Chronicity: acute Qualified Code(s): J81.0 - Acute pulmonary edema Code(s): J81.1 - Chronic pulmonary edema Status: Acute (3) Bilateral pleural effusion: Code(s): J90 - Pleural effusion, not elsewhere classified Status: Acute (4) Hepatomegaly: Code(s): R16.0 - Hepatomegaly, not elsewhere classified Status: Acute (5) Mediastinal lymphadenopathy: Code(s): R59.0 - Localized enlarged lymph nodes Status: Acute (6) Hilar lymphadenopathy: Code(s): R59.0 - Localized enlarged lymph nodes Status: Acute (7) Acute on chronic heart failure: Qualifiers: Heart failure type: right-sided Qualified Code(s): I50.813 - Acute on chronic right heart failure Code(s): I50.9 - Heart failure, unspecified Status: Acute (8) Severe pulmonary hypertension: Code(s): I27.20 - Pulmonary hypertension, unspecified Status: Acute (9) Acute kidney injury superimposed on stage 4 chronic kidney disease: Code(s): N17.9 - Acute kidney failure, unspecified; N18.4 - Chronic kidney disease, stage 4 (severe) Status: Acute (10) Hyperglycemia due to diabetes mellitus: Code(s): E11.65 - Type 2 diabetes mellitus with hyperglycemia Status: Acute (11) Liver mass: Code(s): R16.0 - Hepatomegaly, not elsewhere classified Status: Acute (12) Mass of right kidney: Code(s): N28.89 - Other specified disorders of kidney and ureter Status: Acute Plan Patient has acute hypoxic respiratory failure most likely due to acute CHF exacerbation caused by right-sided heart failure moderate to severe pulmonary hypertension and diastolic dysfunction. Patient did receive 1 L of IV fluids during her recent hospitalization. She denies any recent changes in her home diuretic therapy and she has been taking her diuretics as directed. She has not been having any fevers or chills to suggest underlying pneumonia. Patient has been admitted for an acute on chronic CHF exacerbation and will receive IV diuresis with Lasix 40 mg b.i.d. with monitoring of strict I&O's. Patient was noted to have some urinary retention and Carney catheter was placed due to urinary retention and need for monitoring of strict I&O's. Catheter will be managed per nursing driven protocol. Will check daily weights. Unfortunately patient does have stage 4 chronic kidney disease with acute worsening. I suspect patient may in part be developing some cardiorenal component to her symptoms. Patient also received IV contrast load for CTA today in the ER. Between IV diuresis and IV contrast load patient is at increased risk of worsening renal function in the near future. Will need to monitor closely for possible development of catheterization contrast nephropathy. Will consult Nephrology for further recommendations. Will continue patient's home cardiac medications including Coreg and hydralazine. The patient also has nitropaste in place to help with some reduction in pre load. Will allow patient break from BiPAP in a.m.. At bedside and made adjustments to the patient's BiPAP. Patient is currently on BiPAP 14/ with 40% FiO2 her respiratory rate has decreased down to the mid to low 20s and she is pulling adequate tidal volumes on the settings. Will place consult for Interventional Radiology for were thoracentesis bilateral pleural effusions unfortunately given the holiday weekend this will not likely be performed until Wednesday. Will place studies for possible of diagnostic evaluation given the patient's imaging findings of renal masses, liver mass in scattered hilar lymphadenopathy. Given leukocytosis and her current clinical setting will also place on antibiotics for possible pneumonia. Blood cultures are pending. The patient had MRCP of the abdomen and pelvis during recent hospitalization which demonstrated simple and complex hemorrhagic renal cysts did not suggest malignant appearance to the cyst did have some pancreatic changes but changes were stable since 2019 so were likely benign and liver cyst findings not concerning for malignancy but narrowing of the bile duct concerning for possible cold neoplastic process in the distal common bile duct but CA 19-9 was negative. The patient already has follow-up at [facility] for possible endoscopic ultrasound and/or ERCP. Given imaging findings in comparison to prior I am somewhat less suspicious of acute malignancy. However will still send pleural fluid for cytology. Patient been placed on heart healthy 1.5 L fluid restricted diet. 60 minute spent in critical care activities. Due to a high probability of clinically significant, life threatening deterioration, the patient required my highest level of preparedness to intervene emergently and I personally spent this critical care time directly and personally managing the patient. This critical care time included obtaining a history; examining the patient; pulse oximetry; ordering and review of studies; arranging urgent treatment with development of a management plan; evaluation of patient's response to treatment; frequent reassessment; and discussions with other providers. It was exclusive of separately billable procedures and treating other patients and teaching time. Please see Assessment and Plan section and the rest of the note for further information on patient assessment and treatment. Quality VTE Prophylaxis VTE prophylaxis: mechanical ordered (SCDs) Hospitalist MIPS Advance Care Plan I have confirmed that the patient's Advanced Care Plan is present, code status is documented, or surrogate decision maker is listed in patient medical record.: Yes Medication Reconciliation I have utilized all available resources to obtain, update and review the patients current medications (includes all prescriptions, OTC, herbals, cannabis, and nutritional supplements).: Yes
[2025-03-11 04:16] LABS: Hematocrit 33.1 % (37.0-47.0); Hemoglobin 10.1 g/dL (12.0-15.0); Mean Corpuscular HGB Conc 30.5 g/dl (32-36); Mean Corpuscular Hemoglobin 30.6 pg (26-34); Mean Corpuscular Volume 100.3 fl (80-100); Mean Platelet Volume 10.6 fl (7.4-10.4); Platelet Count Result 145 k/mm3 (150-375); Red Cell Distribution Width 13.2 % (11.5-14.5); White Blood Count 11.5 K/mm3 (4.5-10.0)
[2025-03-11 05:58] LABS: Anion Gap 9 mmol/L (4-12); Blood Urea Nitrogen 57 mg/dL (7-17); Calcium 7.8 mg/dL (8.4-10.2); Carbon Dioxide 27 mmol/L (22-30); Chloride 101 mmol/L (98-107); Estimated CRCL calculation 11 ml/min; Estimated Glomerular Filt Rate 11; Glucose 117 mg/dL (65-110); Magnesium 2.3 mg/dL (1.6-2.3); Phosphorus 5.7 mg/dL (2.5-4.5); Potassium 3.6 mmol/L (3.4-5.0); Sodium 137 mmol/L (137-145)
[2025-03-11] MEDS: NITROGLYCERIN OINTMENT 1 INCH DOSE TRANSDERM ×3 (06:36→17:34)
[2025-03-11 08:39] LABS: Glucose Point of Care 111 mg/dl (65-105)
[2025-03-11] MEDS: carvediloL 12.5 MG TABLET PO ×2 (08:53→21:05)
[2025-03-11] MEDS: FUROSEMIDE INJ 40 MG/4 ML VIAL IV PUSH ×2 (08:53→17:34)
[2025-03-11] MEDS: dilTIAZem HCL CD 240 MG CAP.24HR PO (08:53)
[2025-03-11] MEDS: hydrALAZINE HCL 25 MG TABLET PO ×2 (08:53→17:34)
[2025-03-11] MEDS: LORATADINE 10 MG TABLET PO (08:53)
[2025-03-11] MEDS: POTASSIUM CHLORIDE 20 MEQ ER TABLET PO (08:53)
--- OUTSIDE RECORDS SUMMARY | 2025-03-11 08:53 | XMS_ITS | Clinical Summary ---
Author Organization [facility] Address [address] [place] [address] Care Team Providers Care Child Care Lead Teacher Name Role Phone Unavailable Primary Care Provider [...]
--- OUTSIDE RECORDS SUMMARY | 2025-03-11 08:53 | XMS_ITS | Encounter Summary ---
Author Organization [facility] Address [address] [place] [address] Care Team Providers Care Wire Tester Name Role Phone Unavailable Primary Care Provider [...]
[2025-03-11] MEDS: cycloSPORINE 0.4 ML OPHTH SOLUTION 1 DROP EACH EYE (08:54)
--- NOTE | 2025-03-11 09:38 | P.PNIM_ITS ---
Progress Note: A&P Assessment and Plan (1) Acute hypoxic respiratory failure: Code(s): J96.01 - Acute respiratory failure with hypoxia Status: Acute Assessment and Plan: Continue Ceftriaxone and zithromycin S/P BiPAP Titrate O2 Furosemide 40 mg IV BID BNP? ECHO 11/03/2024:Left ventricular systolic function is normal, estimated at 50- 55%. Pertinent CTA findings:Evidence pulmonary edema/pericardial effusion Hepatomegaly with enhancing area in the left lobe. Mass is highly suggestive Enhancing mass in the right kidney laterally which may be renal cell carcinoma. CTA Chesy/Abd/Pelvis: CHEST: 1. No pulmonary embolism. 2. Cardiomegaly. 3. Bilateral large pleural effusion with adjacent atelectasis versus pneumonia. 4. Highly suggestive pulmonary edema seen bilaterally. 5. Trace of pericardial effusion. 6. Hilar and mediastinal lymphadenopathy. ABDOMEN/PELVIS: 1. No evidence of appendicitis, diverticulitis or intestinal obstruction. 2. Hepatomegaly with enhancing area in the left lobe. Mass is highly suggestive. Further evaluation advised. 3. Distended gallbladder with no stones. Surrounding edema is seen. No change from previous examination. 4. Small cyst seen between the gallbladder and the liver. 5. Sliding hiatus hernia 6. Enhancing mass in the right kidney laterally which may be renal cell carcinoma. Further evaluation advised. 7. Isodense lesion is seen posterior to the right kidney and in the left kidney upper pole. Follow-up advised. 8. Bilateral renal stones. 9. Bilateral renal cysts. 10. Free fluid in the pelvis. Evidence of perforation is not demonstrated. Follow-up advised. 11. Slightly thickened sigmoid colon. 12. Fat-containing left left inguinal hernia with minimal fluid.. (2) Pulmonary edema: Qualifiers: Chronicity: acute Qualified Code(s): J81.0 - Acute pulmonary edema Code(s): J81.1 - Chronic pulmonary edema Status: Acute Assessment and Plan: Thoracentesis pending (3) Bilateral pleural effusion: Code(s): J90 - Pleural effusion, not elsewhere classified Status: Acute Assessment and Plan: same as above (4) Hepatomegaly: Code(s): R16.0 - Hepatomegaly, not elsewhere classified Status: Acute Assessment and Plan: Will consider GI consult (5) Mediastinal lymphadenopathy: Code(s): R59.0 - Localized enlarged lymph nodes Status: Acute (6) Hilar lymphadenopathy: Code(s): R59.0 - Localized enlarged lymph nodes Status: Acute (7) Acute on chronic heart failure: Qualifiers: Heart failure type: right-sided Qualified Code(s): I50.813 - Acute on chronic right heart failure Code(s): I50.9 - Heart failure, unspecified Status: Acute Assessment and Plan: Continue Furosemide ECHO 10/2024: Left ventricular systolic function is normal, estimated at 50-55%. No evidence of diastolic dysfunction Order BNP (8) Severe pulmonary hypertension: Code(s): I27.20 - Pulmonary hypertension, unspecified Status: Acute (9) Acute kidney injury superimposed on stage 4 chronic kidney disease: Code(s): N17.9 - Acute kidney failure, unspecified; N18.4 - Chronic kidney disease, stage 4 (severe) Status: Acute Assessment and Plan: Avoid nephrotoxic drugs Trend BUN and creatinine Baseline creatinine around 3 Recent contrast exposure Renal ultrasound CPK ordered Trial of IV fluids Nephrology consulted (10) Hyperglycemia due to diabetes mellitus: Code(s): E11.65 - Type 2 diabetes mellitus with hyperglycemia Status: Acute Assessment and Plan: SSI ordered Hypoglycemia (11) Liver mass: Code(s): R16.0 - Hepatomegaly, not elsewhere classified Status: Acute Assessment and Plan: Called Radiology and awaiting call back. Will order biopsy after the discusiion (12) Mass of right kidney: Code(s): N28.89 - Other specified disorders of kidney and ureter Status: Acute Assessment and Plan: Same as above Subjective Date/time seen: 03/11/25 09:38 Interval history: Evaluated the patient at bedside . Patient wants to be on DNR.Her daughter was present at the bedside during the conversation and reported her mother makes the medical decision. Patient has remote history of smoking. Patient had a mitral valve repair 2016. Yesterday night she was initially placed on BiPAP and was not able to tolerate. Currently on nasal cannula, saturating well. Will order ABG Exam 2 Narrative: Weight 67.6 kg BMI 23.3 Const: Other: Acutely ill-appearing, appears stated age, frail HENMT: Other: Mucous membranes are tacky oral exam limited due to BiPAP, head is normocephalic atraumatic Eyes: Other: Pupils are equal and reactive, positive conjunctival pallor, no scleral icterus Neck: Other: No JVD, no lymphadenopathy, trachea midline Resp: Other: Tachypnea is intermittent but improved from prior now that she is on BiPAP respiratory rate is down to the mid 20s, decreased breath sounds bilateral posterior lung salas Cardio: Other: Irregular rate, irregular rhythm, 2+ bilateral radial pedal pulses, no JVD GI: Other: Soft, mildly distended, nontender, normoactive bowel sounds : Other: Suprapubic fullness, unable to urinate with pure wick in place Skin: Other: Generalized pallor, non jaundice Neuro: Other: Alert oriented x4, speech is clear, no facial asymmetry, moves all extremities equally, no localizing neurologic deficits noted during conversation exam limited due to patient condition Extrem: Other: No clubbing, cyanosis or edema equal strength bilateral upper and lower extremities Psych: Other: Appropriate mood and affect, cooperative, fair judgment and insight Objective Data Vital Signs Vital Signs: Vital Signs - 24 hr 03/10/25 18:48 03/10/25 18:57 03/10/25 19:02 Temperature 98.6 F Pulse Rate 84 84 Respiratory Rate 18 Blood Pressure 144/63 H Pulse Oximetry 82 L Oxygen Delivery Room Air Oxygen Flow Rate Fraction of Inspired Oxygen 03/10/25 19:02 03/10/25 19:02 03/10/25 19:31 Temperature Pulse Rate 83 91 Respiratory Rate 40 H 35 H Blood Pressure 146/75 H 153/69 H Pulse Oximetry 93 93 97 Oxygen Delivery Non-Rebreather Mask Oxygen Flow Rate 2 Fraction of Inspired Oxygen 03/10/25 20:01 03/10/25 20:31 03/10/25 22:26 Temperature Pulse Rate 87 85 94 Respiratory Rate 41 H 27 H 37 H Blood Pressure 153/82 H 165/87 H 151/75 H Pulse Oximetry 89 L 94 94 Oxygen Delivery Oxygen Flow Rate Fraction of Inspired Oxygen 03/10/25 23:45 03/11/25 00:11 03/11/25 00:19 Temperature 98.5 F Pulse Rate 88 86 88 Respiratory Rate 31 H 18 41 H Blood Pressure 150/78 H Pulse Oximetry 96 100 96 Oxygen Delivery BiPAP BiPAP Oxygen Flow Rate Fraction of Inspired Oxygen 03/11/25 01:10 03/11/25 01:53 03/11/25 02:00 Temperature 98.8 F Pulse Rate 81 82 Respiratory Rate 28 H Blood Pressure 147/63 H Pulse Oximetry 99 Oxygen Delivery BiPAP Oxygen Flow Rate Fraction of Inspired Oxygen 100 03/11/25 03:00 03/11/25 04:00 03/11/25 04:00 Temperature Pulse Rate 88 84 Respiratory Rate 23 H Blood Pressure Pulse Oximetry 99 Oxygen Delivery BiPAP BiPAP Oxygen Flow Rate Fraction of Inspired Oxygen 40 03/11/25 04:54 03/11/25 06:00 03/11/25 08:00 Temperature 98.7 F 100.3 F H Pulse Rate 85 77 89 Respiratory Rate 24 H 26 H Blood Pressure 154/72 H 168/76 H Pulse Oximetry 100 99 Oxygen Delivery Oxygen Flow Rate Fraction of Inspired Oxygen 03/11/25 08:53 03/11/25 09:05 03/11/25 09:25 Temperature Pulse Rate 87 88 Respiratory Rate 23 H Blood Pressure Pulse Oximetry 98 95 Oxygen Delivery BiPAP Nasal Cannula Oxygen Flow Rate 2 Fraction of Inspired Oxygen Intake/Output Intake/Output: Intake & Output 03/08/25 03/09/25 03/10/25 03/11/25 23:59 23:59 23:59 23:59 Intake Total 800 200 Balance 800 200 Meds/Results Medications: Active Medications Generic Name Dose Route Start Last Admin Trade Name Freq PRN Reason Stop Dose Admin Acetaminophen 650 mg 03/10/25 23:10 Acetaminophen 325 Mg Tablet PO Q4H PRN Mild Pain (1-3) or Fever Hydrocodone Bitart/Acetaminophen 1 tab 03/11/25 01:50 Hydrocodone/Acetaminophen (*Crx) 5-325 Mg Tablet PO Q6H PRN Pain Rated 6-10 Carvedilol 12.5 mg 03/11/25 09:00 03/11/25 08:53 Carvedilol 12.5 Mg Tablet PO 12.5 mg Q12HR SUKUMAR Administration Cyclosporine 1 drop 03/11/25 09:00 03/11/25 08:54 Cyclosporine 0.4 Ml Ophth Solution EACH EYE 1 drop DAILY SUKUMAR Administration Dextrose 12.5 gm 03/11/25 02:06 Dextrose 50% 25 Gm/50 Ml Syringe IV PUSH PRN PRN Hypoglycemia Protocol Diltiazem HCl 240 mg 03/11/25 09:00 03/11/25 08:53 Diltiazem Hcl Cd 240 Mg Cap.24hr PO 240 mg DAILY SUKUMAR Administration Ezetimibe 10 mg 03/11/25 09:00 03/11/25 08:54 Ezetimibe 10 Mg Tablet PO Not Given DAILY SUKUMAR Furosemide 40 mg 03/11/25 09:00 03/11/25 08:53 Furosemide Inj 40 Mg/4 Ml Vial IV PUSH 40 mg BID SUKUMAR Administration Glucagon 1 mg 03/11/25 02:06 Glucagon For Inj 1 Mg Vial IM PRN PRN Hypoglycemia Protocol Glucose 15 gm 03/11/25 02:06 Glucose Oral Gel 15 Gm Of Glucse In 37.5 Gm Tube PO PRN PRN Hypoglycemia Protocol Hydralazine HCl 25 mg 03/11/25 09:00 03/11/25 08:53 Hydralazine Hcl 25 Mg Tablet PO 25 mg BID SUKUMAR Administration Dextrose 1,000 mls @ 100 mls/hr 03/11/25 02:06 Dextrose 5% 1,000 Ml IVPB PRN PRN Hypoglycemia Protocol Ceftriaxone Sodium 1 gm in 50 mls @ 100 mls/hr 03/11/25 07:00 03/11/25 08:54 Rocephin 1 Gm/Ns 50 Ml IVPB 100 mls/hr Q24H SUKUMAR Administration Azithromycin 500 mg in 250 mls @ 250 mls/hr 03/11/25 08:00 Zithromax IVPB Q24H SUKUMAR Insulin Aspart 2 - 5 units 03/11/25 08:00 03/11/25 08:49 Insulin Aspart (*Bkc) 100 Units/Ml SUB-Q Not Given [facility] Protocol Loratadine 10 mg 03/11/25 09:00 03/11/25 08:53 Loratadine 10 Mg Tablet PO 10 mg QAM SUKUMAR Administration Nitroglycerin 1 inch 03/11/25 06:00 03/11/25 06:36 Nitroglycerin Ointment 1 Inch Dose TRANSDERM 1 inch Q6HR SUKUMAR Administration Ondansetron HCl 4 mg 03/10/25 23:10 Ondansetron Inj 4 Mg/2 Ml Vial IV PUSH Q4H PRN Nausea Potassium Chloride 20 meq 03/11/25 09:00 03/11/25 08:53 Potassium Chloride 20 Meq Er Tablet PO 20 meq Q48H SUKUMAR Administration Vancomycin HCl 1 each 03/10/25 19:59 Vancomycin For Acute Kidney Injury IVPB PRN PRN Vancomycin Protocol Radiology Results: ITS Impressions Chest X-Ray 03/10/25 19:46 IMPRESSION: Cardiomegaly with cardiac decompensation and pulmonary edema. Bibasilar atelectasis versus pneumonia with left pleural effusion. Chest/Abdomen/Pelvis CTA 03/10/25 21:30 IMPRESSION: CHEST: 1. No pulmonary embolism. 2. Cardiomegaly. 3. Bilateral large pleural effusion with adjacent atelectasis versus pneumonia. 4. Highly suggestive pulmonary edema seen bilaterally. 5. Trace of pericardial effusion. 6. Hilar and mediastinal lymphadenopathy. ABDOMEN/PELVIS: 1. No evidence of appendicitis, diverticulitis or intestinal obstruction. 2. Hepatomegaly with enhancing area in the left lobe. Mass is highly suggestive. Further evaluation advised. 3. Distended gallbladder with no stones. Surrounding edema is seen. No change from previous examination. 4. Small cyst seen between the gallbladder and the liver. 5. Sliding hiatus hernia 6. Enhancing mass in the right kidney laterally which may be renal cell carcinoma. Further evaluation advised. 7. Isodense lesion is seen posterior to the right kidney and in the left kidney upper pole. Follow-up advised. 8. Bilateral renal stones. 9. Bilateral renal cysts. 10. Free fluid in the pelvis. Evidence of perforation is not demonstrated. Follow-up advised. 11. Slightly thickened sigmoid colon. 12. Fat-containing left left inguinal hernia with minimal fluid.. Labs Labs: Laboratory Results - last 24 hr 03/10/25 03/10/25 03/10/25 19:05 19:06 20:12 WBC 13.0 H RBC 3.68 L Hgb 11.3 L Hct 36.3 L MCV 98.6 MCH 30.7 MCHC 31.1 L RDW 13.2 Plt Count 198 MPV 10.5 H Immature Gran % (Auto) 0.6 H Neut % (Auto) 82.9 H Lymph % (Auto) 6.4 L [place] % (Auto) 9.0 H Eos % (Auto) 0.8 Baso % (Auto) 0.3 Lymph # (Auto) 0.83 L [place] # (Auto) 1.2 H Eos # (Auto) 0.1 Baso # (Auto) 0.0 Abs Immat Gran (auto) 0.08 H Absolute Neuts (auto) 10.8 H Absolute Nucleated RBC 0.000 Nucleated RBC % 0.0 PT 14.2 INR 1.1 APTT 25.1 D-Dimer 1.36 H VBG pH VBG pCO2 VBG pO2 VBG HCO3 O2 Delivery Device O2 Liters/Min FiO2 Sodium 136 L Potassium 3.8 Chloride 99 Carbon Dioxide 25 Anion Gap 12 BUN 59 H D Creatinine 3.92 H Estim Creat Clear Calc 10 Estimated GFR 11 L Glucose 192 H POC Capillary Glucose Lactic Acid 1.0 Calcium 8.1 L Phosphorus Magnesium Total Bilirubin 0.9 AST 19 ALT 14 Alkaline Phosphatase 73 Total Creatine Kinase 31 Troponin I 0.016 C-Reactive Protein 3.7 H NT-Pro-B Natriuret Pep 31432 H Total Protein 7.0 Albumin 4.0 Lipase 28 TSH 0.516 Urine Color Urine Appearance Urine pH Ur Specific [place] Urine Protein Urine Glucose (UA) Urine Ketones Ur Blood (Man) Urine Nitrate Urine Bilirubin Urine Urobilinogen Leukocyte Esterase Rfl Urine RBC Urine WBC Ur Squamous Epith Cells Urine Bacteria Urine Casts Hyaline Casts Nasal MRSA (PCR) Influenza A (RT-PCR) Negative Influenza B (RT-PCR) Negative RSV (RT-PCR) Negative SARS-CoV-2 RNA (RT-PCR) Negative 03/10/25 03/10/25 03/10/25 20:23 21:11 21:55 WBC RBC Hgb Hct MCV MCH MCHC RDW Plt Count MPV Immature Gran % (Auto) Neut % (Auto) Lymph % (Auto) [place] % (Auto) Eos % (Auto) Baso % (Auto) Lymph # (Auto) [place] # (Auto) Eos # (Auto) Baso # (Auto) Abs Immat Gran (auto) Absolute Neuts (auto) Absolute Nucleated RBC Nucleated RBC % PT INR APTT D-Dimer VBG pH 7.338 VBG pCO2 41.8 L VBG pO2 52.1 H VBG HCO3 21.9 L O2 Delivery Device Room air O2 Liters/Min Not Reportable FiO2 21 Sodium Potassium Chloride Carbon Dioxide Anion Gap BUN Creatinine Estim Creat Clear Calc Estimated GFR Glucose POC Capillary Glucose Lactic Acid Calcium Phosphorus Magnesium Total Bilirubin AST ALT Alkaline Phosphatase Total Creatine Kinase Troponin I C-Reactive Protein NT-Pro-B Natriuret Pep Total Protein Albumin Lipase TSH Urine Color Yellow Urine Appearance Cloudy H Urine pH 5.0 Ur Specific [place] 1.016 Urine Protein 3+ H Urine Glucose (UA) Trace H Urine Ketones Negative Ur Blood (Man) Negative Urine Nitrate Negative Urine Bilirubin Negative Urine Urobilinogen 1.0 Leukocyte Esterase Rfl Negative Urine RBC 0-2 Urine WBC 0-5 Ur Squamous Epith Cells None seen Urine Bacteria None seen Urine Casts >20 Hyaline Casts Present Nasal MRSA (PCR) Not detected Influenza A (RT-PCR) Influenza B (RT-PCR) RSV (RT-PCR) SARS-CoV-2 RNA (RT-PCR) 03/11/25 03/11/25 03/11/25 00:54 03:58 05:20 WBC 11.5 H RBC 3.30 L Hgb 10.1 L Hct 33.1 L MCV 100.3 H MCH 30.6 MCHC 30.5 L RDW 13.2 Plt Count 145 L MPV 10.6 H Immature Gran % (Auto) Neut % (Auto) Lymph % (Auto) [place] % (Auto) Eos % (Auto) Baso % (Auto) Lymph # (Auto) [place] # (Auto) Eos # (Auto) Baso # (Auto) Abs Immat Gran (auto) Absolute Neuts (auto) Absolute Nucleated RBC Nucleated RBC % PT INR APTT D-Dimer VBG pH VBG pCO2 VBG pO2 VBG HCO3 O2 Delivery Device O2 Liters/Min FiO2 Sodium 137 Potassium 3.6 Chloride 101 Carbon Dioxide 27 Anion Gap 9 BUN 57 H Creatinine 3.83 H Estim Creat Clear Calc 11 Estimated GFR 11 L Glucose 117 H POC Capillary Glucose 138 H Lactic Acid Calcium 7.8 L Phosphorus 5.7 H Magnesium 2.3 Total Bilirubin AST ALT Alkaline Phosphatase Total Creatine Kinase Troponin I C-Reactive Protein NT-Pro-B Natriuret Pep Total Protein Albumin Lipase TSH Urine Color Urine Appearance Urine pH Ur Specific [place] Urine Protein Urine Glucose (UA) Urine Ketones Ur Blood (Man) Urine Nitrate Urine Bilirubin Urine Urobilinogen Leukocyte Esterase Rfl Urine RBC Urine WBC Ur Squamous Epith Cells Urine Bacteria Urine Casts Hyaline Casts Nasal MRSA (PCR) Influenza A (RT-PCR) Influenza B (RT-PCR) RSV (RT-PCR) SARS-CoV-2 RNA (RT-PCR) 03/11/25 08:34 WBC RBC Hgb Hct MCV MCH MCHC RDW Plt Count MPV Immature Gran % (Auto) Neut % (Auto) Lymph % (Auto) [place] % (Auto) Eos % (Auto) Baso % (Auto) Lymph # (Auto) [place] # (Auto) Eos # (Auto) Baso # (Auto) Abs Immat Gran (auto) Absolute Neuts (auto) Absolute Nucleated RBC Nucleated RBC % PT INR APTT D-Dimer VBG pH VBG pCO2 VBG pO2 VBG HCO3 O2 Delivery Device O2 Liters/Min FiO2 Sodium Potassium Chloride Carbon Dioxide Anion Gap BUN Creatinine Estim Creat Clear Calc Estimated GFR Glucose POC Capillary Glucose 111 H Lactic Acid Calcium Phosphorus Magnesium Total Bilirubin AST ALT Alkaline Phosphatase Total Creatine Kinase Troponin I C-Reactive Protein NT-Pro-B Natriuret Pep Total Protein Albumin Lipase TSH Urine Color Urine Appearance Urine pH Ur Specific [place] Urine Protein Urine Glucose (UA) Urine Ketones Ur Blood (Man) Urine Nitrate Urine Bilirubin Urine Urobilinogen Leukocyte Esterase Rfl Urine RBC Urine WBC Ur Squamous Epith Cells Urine Bacteria Urine Casts Hyaline Casts Nasal MRSA (PCR) Influenza A (RT-PCR) Influenza B (RT-PCR) RSV (RT-PCR) SARS-CoV-2 RNA (RT-PCR) Hospitalist MIPS Advance Care Plan I have confirmed that the patient's Advanced Care Plan is present, code status is documented, or surrogate decision maker is listed in patient medical record.: Yes Medication Reconciliation I have utilized all available resources to obtain, update and review the patients current medications (includes all prescriptions, OTC, herbals, cannabis, and nutritional supplements).: Yes
--- NOTE | 2025-03-11 10:20 | P.CONNP_ITS ---
Assessment and Plan Assessment and plan (1) Acute kidney injury: Code(s): N17.9 - Acute kidney failure, unspecified Status: Acute Assessment and Plan: * due to CHF exacerbation (?) * however, cannot discount an element of CKD progression... * check urine studies and renal ultrasound * at risk for contrast nephropathy (CTA C/A/P done admission) * follow trend of repeat labs and UOP (2) Stage 4 chronic kidney disease: Code(s): N18.4 - Chronic kidney disease, stage 4 (severe) Status: Chronic Assessment and Plan: * baseline creatinine runs ~ 2.6 - 3.2mg/dl in the last couple of years * evidence of CKD as far back as 2020 if not longer * due to hypertension, diabetes, vascular disease, CHF + need for diuretics, and age-related change * was following with Dr. Santos (but has not been seen since December 2022) but was lost to follow-up (3) Acute hypoxic respiratory failure: Code(s): J96.01 - Acute respiratory failure with hypoxia Status: Acute Assessment and Plan: * likely multifactorial: * CHF exacerbation * large bilateral pleural effusions * pulmonary edema * pneumonia(?) * severe pulmonary hypertension * COPD * admission imaging findings noted * no evidence of PE * supplemental oxygen * BiPAP therapy PRN * follow response to diuresis * plan thoracentesis by IR when able * follow respiratory status (4) Acute exacerbation of CHF (congestive heart failure): Qualifiers: Heart failure type: unspecified Qualified Code(s): I50.9 - Heart failure, unspecified Code(s): I50.9 - Heart failure, unspecified Status: Acute Assessment and Plan: * acute on chronic * suspected based on presentation and evaluation to date * admission CXR and CT [place] chest [place] [address] [place] * last Echo noted (October 2024): * left ventricular systolic function is normal, estimated at 50-55% * right ventricular systolic function is normal * 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 * mild tricuspid valve regurgitation * pulmonary hypertension, estimated pulmonary arterial systolic pressure is 65 mmHg * started on IV lasix * follow I/Os, daily weights, and respiratory status (5) Anemia: Code(s): D64.9 - Anemia, unspecified Status: Acute Assessment and Plan: * suspect due to underlying CKD * however, given recent CT imaging/findings, malignany could be playing a role * no need for SURESH at this time * follow trend of H/H (6) A-fib: Qualifiers: Atrial fibrillation type: persistent (not longstanding) Qualified Code(s): I48.19 - Other persistent atrial fibrillation Code(s): I48.91 - Unspecified atrial fibrillation Status: Chronic Assessment and Plan: * known history * continue rate control strategy * not on anticoagulation (due to recurrent epistaxis?) (7) HTN (hypertension): Qualifiers: Hypertension type: unspecified Qualified Code(s): I10 - Essential (primary) hypertension Code(s): I10 - Essential (primary) hypertension Status: Chronic Assessment and Plan: * reasonable control * may improve further with diuresis * follow trend of hemodynamics (8) Type 2 diabetes mellitus with diabetic nephropathy, with long-term current use of insulin: Code(s): E11.21 - Type 2 diabetes mellitus with diabetic nephropathy; Z79.4 - [facility]CI (current) use of insulin Status: Chronic Assessment and Plan: * follow accu-cheks * glycemic control per hospitalist Long and extensive discussion (> 20 minutes) with the patient regarding her advanced kidney disease and my concern that her renal function may deteriorate further given the need for diuresis and recent contrast exposure -- I informed her that is it possible that she may need renal replacement therapy/dialysis depending on her response to conservative therapy; she voiced understanding but informed me that she would NOT be willing to do [employer]/dialysis if that was needed and was well aware of the consequence of what could happen if her renal failure continues to progress. I will continue to follow the patient with you while she remains hospitalized and make further recommendations as deemed necessary. Thank you for allowing me to participate in the care of this patient. L History of Present Illness Reason for Consult Consult date: 03/11/25 Reason for consult: acute renal failure (on chronic kidney disease) Chief Complaint Chief complaint: Acute on chronic heart failure; CKD History of Present Illness Narrative: The patient is an 79-year-old female with a past medical history as outlined below who presented to [facility] Emergency Room due to complaints shortness of breath. The patient was recently hospitalized 03/08/2025 through 03/09/2025 due to right upper quadrant pain and found to have imaging suggestive of possible biliary stricture and or mass. She was set up with outpatient follow-up at [facility] for endoscopic ultrasound. She reports that since shortly after returning home/after discharge that she has become progressively more short of breath which is worse with exertion with increased work of breathing. This continued to progressively worsen despite conservative therapy. She denied having any chest pain, cough, congestion, fevers or chills. She reports that she had not had much D because she was only home for 1 day and did not have much of an appetite. She had not had any actual vomiting but was still having some nausea. She reports that she has been having difficulty urinating as well. She presented back to the ER for further assessment. Work-up and evaluation in the ER demonstrated the patient to be hemodynamically stable but she was noted to be tachypneic with a respiratory rate in the 30s. Her chest x-ray and CT demonstrated enlarging bilateral pleural effusions with CTA of chest abdomen and pelvis demonstrating bilateral large pleural effusion and pulmonary edema pattern. CT also demonstrated hepatomegaly with enhancing area left lobe highly suggestive of mass, distended gallbladder without stones with surrounding edema unchanged from prior exam sliding hiatal hernia, right kidney mass which may be concerning for renal cell carcinoma, foot fluid in the pelvis, slightly thickened sigmoid colon fat containing left inguinal hernia. There is also some scattered lymphadenopathy. Her blood tests also demonstrated evidence of worsening renal function as well. She initiated on IV diuretic therapy and admitted to the hospital for further evaluation at therapy. Renal consultation was requested due to her acute kidney injury/acute renal failure on her baseline chronic kidney disease. The patient's creatinine at least the last few years seems to fluctuate anywhere 2.6 - 3.2 mg/dL. She had been following with Dr. Santos for management of her chronic kidney disease but it would appear that she last saw him in December of 2022 and never returned for follow-up/management of her chronic kidney disease. It was felt that her chronic kidney disease was likely a manifestation of her hypertension and diabetes coupled with her need for diuretic therapy to maintain her volume status given her known history of congestive heart failure. I last saw the patient during her hospitalization in October of 2024 (for CHF and fluid overload) but it is noted that she has been subsequently hospitalized here at [facility] about a week ago (03/07 for abdominal pain) and November 2024 for CHF/fluid overload. During her those previous hospitalizations, her renal function remains stable if not stabilized by the time of discharge. On this hospital admission, it was noted that her creatinine was above baseline at 3.9mg/dl with a subsequent reading of 3.83mg/dl on labs this morning. She has no critical electrolyte abnormalities but she does have evidence of volume overload as noted by her admission imaging as stated above. Currently, the time my evaluation, the patient states she feels about the same since admission with her breathing not back to baseline. Review of Systems 2 Review of Systems: As per HPI. 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 A-fib Paroxysmal Myocardial infarction Seasonal allergies Hypertensive heart disease with heart failure COPD (chronic obstructive pulmonary disease) Surgical History Surgical History Intertrochanteric fracture of right hip ORIF with trochanteric nail September 13, 2023 H/O: hysterectomy H/O cardiac catheterization H/O maze procedure H/O mitral valve repair With a ring Family History Family History Mother Family history of diabetes mellitus in first degree relative Family history of lung cancer Father Family history of coronary artery disease Hypertension Sibling Family history of diabetes mellitus in first degree relative Social History Social History (Updated 03/11/25 @ 06:05 by Julia Sanchez DO) Social History: She with her for over 50 years. She desires to be full code. She smoked half a pack a cigarettes per day for 40 years quit March 14, 2014. No illicit drug use but does occasionally drink alcohol. 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 She has 2 children and 2 grandchildren. Her has dementia and she nominated her daughter Debbie to be the one to make medical decisions for her if she is unable. Smoking packs per day: 0.5 Smoking cigarettes per day: 10.0 Years smoked: 30 Smoking pack-years: 15.00 Smoking status: Former smoker Tobacco type: cigarettes Second hand tobacco smoke exposure: Yes Additional smoking assessment comments: Occasional smoker for 40 years Alcohol intake: never Drinks per week: 0 Alcohol use details: once a year Substance use: never Substance use type: does not use Do You Feel Safe in your Home?: Yes Lack of Transportation: No Lack of Food: Never True Current Housing: I Have Housing Concerned About Future Housing: No Difficulty Paying Gas/Electric Bills: No Difficulty Paying for Meds: No Currently Unemployed: No Education: Bachelor's Degree Difficulty w/ Childcare or Family Care: No Living arrangements: assisted living Additional living arrangements comments: [place] Occupation/Education: retired Gender identity (if verbalized by the patient): Female Sexual Orientation (if Verbalized by the Patient): Straight or Heterosexual Spiritual care concerns: No Agree to blood products: Yes Meds Home Medications and Allergies Home Medications ?Medication ?Instructions ?Recorded ?Confirmed ?Type cyclosporine 0.05 % eye drops 1 drop ophthalmic (eye) DAILY 10/24/19 03/11/25 History (Restasis MultiDose) diltiazem HCl 240 mg 240 mg PO DAILY #30 caps 12/30/19 03/11/25 Rx capsule,extended release 24 hr acetaminophen 500 mg tablet 500 mg PO Q6H PRN pain 06/22/24 03/11/25 History (Tylenol Extra Strength) carvedilol 12.5 mg tablet 12.5 mg PO Q12H 06/22/24 03/11/25 History blood sugar diagnostic (FreeStyle #100 ea 08/30/24 03/11/25 Rx Test strips) lancets 28 gauge (FreeStyle #100 ea 08/30/24 03/11/25 Rx Lancets) ezetimibe 10 mg tablet 10 mg PO DAILY #90 tabs 09/28/24 03/11/25 Rx furosemide 40 mg tablet 40 mg PO DAILY #90 tabs 11/06/24 03/11/25 Rx hydralazine 25 mg tablet 25 mg PO BID #180 tabs 11/08/24 03/11/25 Rx potassium chloride 20 mEq 20 meq PO .COMPLEX #45 tabs 12/15/24 03/11/25 Rx tablet,extended release(part/cryst) (Klor-Con M) cetirizine 10 mg tablet 10 mg PO DAILY #20 tabs 01/18/25 03/11/25 Rx hydrocodone 5 mg-acetaminophen 325 1 tablet PO Q6H PRN Pain Rated 4-6 03/09/25 03/11/25 Rx mg tablet #10 tabs ondansetron 4 mg disintegrating 4 mg PO Q8H PRN nausea and 03/09/25 03/11/25 Rx tablet vomiting #10 tabs Allergies Allergy/AdvReac Type Severity Reaction Status Date / Time amiodarone Allergy Severe Unresponsiv Verified 03/07/25 07:41 e Vital Signs Vital Signs Temp Pulse Resp BP Pulse Ox O2 Del Method O2 Flow Rate 03/11/25 10:00 91 03/11/25 09:25 95 Nasal Cannula 2 03/11/25 09:05 88 23 H 98 BiPAP 03/11/25 08:53 87 03/11/25 08:00 91 03/11/25 08:00 99 BiPAP 03/11/25 08:00 100.3 F H 89 26 H 168/76 H 99 03/11/25 06:00 77 03/11/25 04:54 98.7 F 85 24 H 154/72 H 100 03/11/25 04:00 BiPAP 03/11/25 04:00 84 03/11/25 03:00 88 23 H 99 BiPAP 03/11/25 02:00 82 03/11/25 01:53 98.8 F 81 28 H 147/63 H 99 03/11/25 01:10 BiPAP 03/11/25 00:19 88 41 H 96 BiPAP 03/11/25 00:11 98.5 F 86 18 150/78 H 100 03/10/25 23:45 88 31 H 96 BiPAP 03/10/25 22:26 94 37 H 151/75 H 94 03/10/25 20:31 85 27 H 165/87 H 94 03/10/25 20:01 87 41 H 153/82 H 89 L 03/10/25 19:31 91 35 H 153/69 H 97 03/10/25 19:02 83 40 H 146/75 H 93 03/10/25 19:02 93 Non-Rebreather Mask 2 03/10/25 19:02 84 03/10/25 18:57 144/63 H 03/10/25 18:48 98.6 F 84 18 82 L Room Air Exam 2 Narrative: GENERAL APPEARANCE: somewhat ill appearing, elderly and frail female in no acute distress HEENT: normocephalic, atraumatic, pallor to conjunctiva and sclera, nares patient NECK: no lymphadenopathy, thyromegaly, or JVD MOUTH: normal lips, teeth, and gums CARDIOVASCULAR: IRRR, normal S1 and S2, no rub RESPIRATORY: coarse and diminished bilaterally at bases ABDOMEN: soft, nontender, nondistended, positive bowel sounds present EXTREMITIES: no evidence of cyanosis, clubbing, or edema NEUROLOGICAL: alert and oriented x 3; CN II - XII intact bilaterally; no focal deficits noted Results Lab Results 03/13/25 04:35 03/13/25 04:35 Lab results: Most recent lab results Calcium 7.8 mg/dL (8.4-10.2) L 03/11/25 05:20 Phosphorus 5.7 mg/dL (2.5-4.5) H 03/11/25 05:20 Magnesium 2.3 mg/dL (1.6-2.3) 03/11/25 05:20
[2025-03-11] MEDS: AZITHROMYCIN 500 MG/NS 250 ML 500 MG/250 ML BAG 250 MG IVPB (11:08)
[2025-03-11 14:14] LABS: Glucose Point of Care 214 mg/dl (65-105)
[2025-03-11 15:41] LABS: Glucose Point of Care 175 mg/dl (65-105)
--- NOTE | 2025-03-11 16:38 | PCRCNOTE ---
Pt. refused to have ABG drawn; R.N. notified. R.N. called and notified the ordering provider.
[2025-03-11 20:17] LABS: Vancomycin Random 9.9 ug/mL (10-20)
[2025-03-11 20:36] LABS: Glucose Point of Care 116 mg/dl (65-105)
[2025-03-11] MEDS: VANCOMYCIN 750 MG/NS 250 ML 750 MG/250 ML BAG 250 MG IVPB (21:35)
[2025-03-12] VITALS (19 sets, daily range): BP systolic 131–150; BP diastolic 63–71; PULSE 65–85; RESP 20–31; TEMP 36.6–37; O2SAT 92–97
[2025-03-12] MEDS: NITROGLYCERIN OINTMENT 1 INCH DOSE TRANSDERM ×4 (00:25→17:12)
[2025-03-12 04:50] LABS: Estimated CRCL calculation 11 ml/min; Estimated Glomerular Filt Rate 12
[2025-03-12 07:54] LABS: Glucose Point of Care 98 mg/dl (65-105)
[2025-03-12] MEDS: AZITHROMYCIN 500 MG/NS 250 ML 500 MG/250 ML BAG 250 MG IVPB (08:38)
[2025-03-12] MEDS: FUROSEMIDE INJ 40 MG/4 ML VIAL IV PUSH ×2 (08:39→17:12)
[2025-03-12] MEDS: dilTIAZem HCL CD 240 MG CAP.24HR PO (08:39)
[2025-03-12] MEDS: carvediloL 12.5 MG TABLET PO ×2 (08:39→20:49)
[2025-03-12] MEDS: LORATADINE 10 MG TABLET PO (08:40)
[2025-03-12] MEDS: cycloSPORINE 0.4 ML OPHTH SOLUTION 1 DROP EACH EYE (08:40)
[2025-03-12] MEDS: hydrALAZINE HCL 25 MG TABLET PO ×2 (08:40→17:12)
--- NOTE | 2025-03-12 09:00 | PM.IMPN ---
Progress Note: A&P Assessment and Plan (1) Acute hypoxic respiratory failure: Code(s): J96.01 - Acute respiratory failure with hypoxia Status: Acute Assessment and Plan: Continue Ceftriaxone and zithromycin S/P BiPAP Titrate O2 Furosemide 40 mg IV BID BNP? ECHO 11/03/2024:Left ventricular systolic function is normal, estimated at 50-55%. Pertinent CTA findings:Evidence pulmonary edema/pericardial effusion Hepatomegaly with enhancing area in the left lobe. Mass is highly suggestive Enhancing mass in the right kidney laterally which may be renal cell carcinoma. CTA Chesy/Abd/Pelvis: CHEST: 1. No pulmonary embolism. 2. Cardiomegaly. 3. Bilateral large pleural effusion with adjacent atelectasis versus pneumonia. 4. Highly suggestive pulmonary edema seen bilaterally. 5. Trace of pericardial effusion. 6. Hilar and mediastinal lymphadenopathy. ABDOMEN/PELVIS: 1. No evidence of appendicitis, diverticulitis or intestinal obstruction. 2. Hepatomegaly with enhancing area in the left lobe. Mass is highly suggestive. Further evaluation advised. 3. Distended gallbladder with no stones. Surrounding edema is seen. No change from previous examination. 4. Small cyst seen between the gallbladder and the liver. 5. Sliding hiatus hernia 6. Enhancing mass in the right kidney laterally which may be renal cell carcinoma. Further evaluation advised. 7. Isodense lesion is seen posterior to the right kidney and in the left kidney upper pole. Follow-up advised. 8. Bilateral renal stones. 9. Bilateral renal cysts. 10. Free fluid in the pelvis. Evidence of perforation is not demonstrated. Follow-up advised. 11. Slightly thickened sigmoid colon. 12. Fat-containing left left inguinal hernia with minimal fluid.. (2) Pulmonary edema: Qualifiers: Chronicity: acute Qualified Code(s): J81.0 - Acute pulmonary edema Code(s): J81.1 - Chronic pulmonary edema Status: Acute Assessment and Plan: Thoracentesis pending (3) Bilateral pleural effusion: Code(s): J90 - Pleural effusion, not elsewhere classified Status: Acute Assessment and Plan: same as above (4) Hepatomegaly: Code(s): R16.0 - Hepatomegaly, not elsewhere classified Status: Acute Assessment and Plan: Will consider GI consult (5) Mediastinal lymphadenopathy: Code(s): R59.0 - Localized enlarged lymph nodes Status: Acute (6) Hilar lymphadenopathy: Code(s): R59.0 - Localized enlarged lymph nodes Status: Acute (7) Acute on chronic heart failure: Qualifiers: Heart failure type: right-sided Qualified Code(s): I50.813 - Acute on chronic right heart failure Code(s): I50.9 - Heart failure, unspecified Status: Acute Assessment and Plan: Continue Furosemide ECHO 10/2024: Left ventricular systolic function is normal, estimated at 50-55%. No evidence of diastolic dysfunction Order BNP (8) Severe pulmonary hypertension: Code(s): I27.20 - Pulmonary hypertension, unspecified Status: Acute (9) Acute kidney injury superimposed on stage 4 chronic kidney disease: Code(s): N17.9 - Acute kidney failure, unspecified; N18.4 - Chronic kidney disease, stage 4 (severe) Status: Acute Assessment and Plan: Avoid nephrotoxic drugs Trend BUN and creatinine Baseline creatinine around 3 Recent contrast exposure Renal ultrasound CPK ordered Trial of IV fluids Nephrology consulted (10) Hyperglycemia due to diabetes mellitus: Code(s): E11.65 - Type 2 diabetes mellitus with hyperglycemia Status: Acute Assessment and Plan: SSI ordered Hypoglycemia (11) Liver mass: Code(s): R16.0 - Hepatomegaly, not elsewhere classified Status: Acute Assessment and Plan: Called Radiology and awaiting call back. Will order biopsy after the discusiion (12) Mass of right kidney: Code(s): N28.89 - Other specified disorders of kidney and ureter Status: Acute Assessment and Plan: Same as above Subjective Date/time seen: 03/12/25 09:00 Interval history: Had discussion with her daughter. Will consult hospice. Patient daughter want to discuss all options with her mother . Patient doesn't want dialysis or intubation. Pending thoracentesis.Unable to reach radiology to get opinion about renal and hepatic biopsy. Review of Systems Review of Systems: 12 systems were reviewed with pertinent positives and negatives per HPI. Except as documented in the HPI, all other systems were reviewed and are negative. Exam Narrative: Weight 67.6 kg BMI 23.3 Const: Other: Acutely ill-appearing, appears stated age, frail HENMT: Other: Mucous membranes are tacky oral exam limited due to BiPAP, head is normocephalic atraumatic Eyes: Other: Pupils are equal and reactive, positive conjunctival pallor, no scleral icterus Neck: Other: No JVD, no lymphadenopathy, trachea midline Resp: Other: Tachypnea is intermittent but improved from prior now that she is on BiPAP respiratory rate is down to the mid 20s, decreased breath sounds bilateral posterior lung salas Cardio: Other: Irregular rate, irregular rhythm, 2+ bilateral radial pedal pulses, no JVD GI: Other: Soft, mildly distended, nontender, normoactive bowel sounds : Other: Suprapubic fullness, unable to urinate with pure wick in place Skin: Other: Generalized pallor, non jaundice Neuro: Other: Alert oriented x4, speech is clear, no facial asymmetry, moves all extremities equally, no localizing neurologic deficits noted during conversation exam limited due to patient condition Extrem: Other: No clubbing, cyanosis or edema equal strength bilateral upper and lower extremities Psych: Other: Appropriate mood and affect, cooperative, fair judgment and insight Objective Data Vital Signs Vital Signs: Vital Signs - 24 hr 03/11/25 09:05 03/11/25 09:25 03/11/25 10:00 Temperature Pulse Rate 88 91 Respiratory Rate 23 H Blood Pressure Pulse Oximetry 98 95 Oxygen Delivery BiPAP Nasal Cannula Oxygen Flow Rate 2 03/11/25 12:00 03/11/25 12:00 03/11/25 12:00 Temperature 98.6 F Pulse Rate 68 75 Respiratory Rate 28 H Blood Pressure 108/54 L Pulse Oximetry 94 91 Oxygen Delivery Nasal Cannula Oxygen Flow Rate 2 03/11/25 14:00 03/11/25 15:43 03/11/25 16:00 Temperature 98.1 F Pulse Rate 65 68 64 Respiratory Rate 24 H Blood Pressure 134/56 L Pulse Oximetry 92 Oxygen Delivery Oxygen Flow Rate 03/11/25 16:00 03/11/25 18:00 03/11/25 20:00 Temperature 98.6 F Pulse Rate 77 83 Respiratory Rate 16 Blood Pressure 155/68 H Pulse Oximetry 92 94 Oxygen Delivery Nasal Cannula Oxygen Flow Rate 2 03/11/25 20:00 03/11/25 21:05 03/11/25 22:00 Temperature Pulse Rate 80 87 84 Respiratory Rate Blood Pressure Pulse Oximetry Oxygen Delivery Oxygen Flow Rate 03/11/25 22:32 03/11/25 23:22 03/11/25 23:48 Temperature 98.7 F Pulse Rate 88 81 Respiratory Rate 31 H 29 H Blood Pressure 140/60 Pulse Oximetry 94 96 98 Oxygen Delivery Nasal Cannula BiPAP Oxygen Flow Rate 2 03/12/25 00:00 03/12/25 02:00 03/12/25 02:35 Temperature Pulse Rate 78 75 75 Respiratory Rate 28 H Blood Pressure Pulse Oximetry 95 Oxygen Delivery BiPAP Oxygen Flow Rate 03/12/25 03:28 03/12/25 04:00 03/12/25 06:00 Temperature 97.9 F Pulse Rate 85 82 78 Respiratory Rate 25 H Blood Pressure 135/71 Pulse Oximetry 96 Oxygen Delivery Oxygen Flow Rate 03/12/25 08:00 03/12/25 08:38 03/12/25 08:39 Temperature 98.0 F Pulse Rate 85 84 Respiratory Rate 20 Blood Pressure 143/71 H Pulse Oximetry 92 92 Oxygen Delivery Nasal Cannula Oxygen Flow Rate 2 Intake/Output Intake/Output: Intake & Output 03/09/25 03/10/25 03/11/25 03/12/25 23:59 23:59 23:59 23:59 Intake Total 800 1250 Output Total 1200 300 Balance 800 50 -300 Meds/Results Medications: Active Medications Generic Name Dose Route Start Last Admin Trade Name Freq PRN Reason Stop Dose Admin Acetaminophen 650 mg 03/10/25 23:10 Acetaminophen 325 Mg Tablet PO Q4H PRN Mild Pain (1-3) or Fever Hydrocodone Bitart/Acetaminophen 1 tab 03/11/25 01:50 Hydrocodone/Acetaminophen (*Crx) 5-325 Mg Tablet PO Q6H PRN Pain Rated 6-10 Carvedilol 12.5 mg 03/11/25 09:00 03/12/25 08:39 Carvedilol 12.5 Mg Tablet PO 12.5 mg Q12HR SUKUMAR Administration Cyclosporine 1 drop 03/11/25 09:00 03/12/25 08:40 Cyclosporine 0.4 Ml Ophth Solution EACH EYE 1 drop DAILY SUKUMAR Administration Dextrose 12.5 gm 03/11/25 02:06 Dextrose 50% 25 Gm/50 Ml Syringe IV PUSH PRN PRN Hypoglycemia Protocol Diltiazem HCl 240 mg 03/11/25 09:00 03/12/25 08:39 Diltiazem Hcl Cd 240 Mg Cap.24hr PO 240 mg DAILY SUKUMAR Administration Ezetimibe 10 mg 03/11/25 09:00 03/12/25 08:40 Ezetimibe 10 Mg Tablet PO Not Given DAILY SUKUMAR Furosemide 40 mg 03/11/25 09:00 03/12/25 08:39 Furosemide Inj 40 Mg/4 Ml Vial IV PUSH 40 mg BID SUKUMAR Administration Glucagon 1 mg 03/11/25 02:06 Glucagon For Inj 1 Mg Vial IM PRN PRN Hypoglycemia Protocol Glucose 15 gm 03/11/25 02:06 Glucose Oral Gel 15 Gm Of Glucse In 37.5 Gm Tube PO PRN PRN Hypoglycemia Protocol Hydralazine HCl 25 mg 03/11/25 09:00 03/12/25 08:40 Hydralazine Hcl 25 Mg Tablet PO 25 mg BID SUKUMAR Administration Dextrose 1,000 mls @ 100 mls/hr 03/11/25 02:06 Dextrose 5% 1,000 Ml IVPB PRN PRN Hypoglycemia Protocol Ceftriaxone Sodium 1 gm in 50 mls @ 100 mls/hr 03/11/25 07:00 03/12/25 06:01 Rocephin 1 Gm/Ns 50 Ml IVPB 100 mls/hr Q24H SUKUMAR Administration Azithromycin 500 mg in 250 mls @ 250 mls/hr 03/11/25 08:00 03/12/25 08:38 Zithromax IVPB 250 mls/hr Q24H SUKUMAR Administration Insulin Aspart 2 - 5 units 03/11/25 08:00 03/12/25 08:39 Insulin Aspart (*Bkc) 100 Units/Ml SUB-Q Not Given TIDWM [facility] Protocol Loratadine 10 mg 03/11/25 09:00 03/12/25 08:40 Loratadine 10 Mg Tablet PO 10 mg QAM SUKUMAR Administration Nitroglycerin 1 inch 03/11/25 06:00 03/12/25 05:58 Nitroglycerin Ointment 1 Inch Dose TRANSDERM 1 inch Q6HR SUKUMAR Administration Ondansetron HCl 4 mg 03/10/25 23:10 Ondansetron Inj 4 Mg/2 Ml Vial IV PUSH Q4H PRN Nausea Potassium Chloride 20 meq 03/11/25 09:00 03/11/25 08:53 Potassium Chloride 20 Meq Er Tablet PO 20 meq Q48H SUKUMAR Administration Vancomycin HCl 1 each 03/10/25 19:59 Vancomycin For Acute Kidney Injury IVPB PRN PRN Vancomycin Protocol Radiology Results: ITS Impressions Chest X-Ray 03/10/25 19:46 IMPRESSION: Cardiomegaly with cardiac decompensation and pulmonary edema. Bibasilar atelectasis versus pneumonia with left pleural effusion. Chest/Abdomen/Pelvis CTA 03/10/25 21:30 IMPRESSION: CHEST: 1. No pulmonary embolism. 2. Cardiomegaly. 3. Bilateral large pleural effusion with adjacent atelectasis versus pneumonia. 4. Highly suggestive pulmonary edema seen bilaterally. 5. Trace of pericardial effusion. 6. Hilar and mediastinal lymphadenopathy. ABDOMEN/PELVIS: 1. No evidence of appendicitis, diverticulitis or intestinal obstruction. 2. Hepatomegaly with enhancing area in the left lobe. Mass is highly suggestive. Further evaluation advised. 3. Distended gallbladder with no stones. Surrounding edema is seen. No change from previous examination. 4. Small cyst seen between the gallbladder and the liver. 5. Sliding hiatus hernia 6. Enhancing mass in the right kidney laterally which may be renal cell carcinoma. Further evaluation advised. 7. Isodense lesion is seen posterior to the right kidney and in the left kidney upper pole. Follow-up advised. 8. Bilateral renal stones. 9. Bilateral renal cysts. 10. Free fluid in the pelvis. Evidence of perforation is not demonstrated. Follow-up advised. 11. Slightly thickened sigmoid colon. 12. Fat-containing left left inguinal hernia with minimal fluid.. Labs Labs: Laboratory Results - last 24 hr 03/11/25 03/11/25 03/11/25 14:11 15:30 19:55 Creatinine Estim Creat Clear Calc Estimated GFR POC Capillary Glucose 214 H 175 H Random Vancomycin 9.9 L 03/11/25 03/12/25 03/12/25 20:30 04:02 07:35 Creatinine 3.72 H Estim Creat Clear Calc 11 Estimated GFR 12 L POC Capillary Glucose 116 H 98 Random Vancomycin Quality VTE Prophylaxis VTE prophylaxis: mechanical ordered (SCDs) Hospitalist [facility] Advance Care Plan I have confirmed that the patient's Advanced Care Plan is present, code status is documented, or surrogate decision maker is listed in patient medical record.: Yes Medication Reconciliation I have utilized all available resources to obtain, update and review the patients current medications (includes all prescriptions, OTC, herbals, cannabis, and nutritional supplements).: Yes
[2025-03-12 09:16] LABS: Anion Gap 10 mmol/L (4-12); Blood Urea Nitrogen 62 mg/dL (7-17); Calcium 7.9 mg/dL (8.4-10.2); Carbon Dioxide 25 mmol/L (22-30); Chloride 102 mmol/L (98-107); Estimated CRCL calculation 10 ml/min; Estimated Glomerular Filt Rate 11; Glucose 104 mg/dL (65-110); Potassium 3.9 mmol/L (3.4-5.0); Sodium 137 mmol/L (137-145)
[2025-03-12 09:44] LABS: Alanine Aminotransferase 9 U/L (6-35); Alkaline Phosphatase 65 U/L (38-126); Anion Gap 10 mmol/L (4-12); Aspartate Amino Transferase 12 U/L (14-36); Bilirubin,Total 0.5 mg/dL (0.2-1.3); Blood Urea Nitrogen 63 mg/dL (7-17); Calcium 7.9 mg/dL (8.4-10.2); Carbon Dioxide 25 mmol/L (22-30); Chloride 101 mmol/L (98-107); Estimated CRCL calculation 11 ml/min; Estimated Glomerular Filt Rate 12; Glucose 101 mg/dL (65-110); Hematocrit 30.5 % (37.0-47.0); Hemoglobin 9.3 g/dL (12.0-15.0); Mean Corpuscular HGB Conc 30.5 g/dl (32-36); Mean Corpuscular Hemoglobin 30.5 pg (26-34); Mean Platelet Volume 11.4 fl (7.4-10.4); Platelet Count Result 170 k/mm3 (150-375); Red Blood Count 3.05 M/mm3 (4.2-5.4); Red Cell Distribution Width 13.4 % (11.5-14.5); Sodium 136 mmol/L (137-145); White Blood Count 9.8 K/mm3 (4.5-10.0)
--- NOTE | 2025-03-12 11:10 | P.PNNP_ITS ---
Progress Note: A&P Assessment and Plan (1) Acute kidney injury: Code(s): N17.9 - Acute kidney failure, unspecified Status: Acute Assessment and Plan: * due to CHF exacerbation (?) * however, cannot discount an element of CKD progression... * check urine studies and renal ultrasound * at risk for contrast nephropathy (CTA C/A/P done admission) * follow trend of repeat labs and UOP (2) Stage 4 chronic kidney disease: Code(s): N18.4 - Chronic kidney disease, stage 4 (severe) Status: Chronic Assessment and Plan: * baseline creatinine runs ~ 2.6 - 3.2mg/dl in the last couple of years * evidence of CKD as far back as 2020 if not longer * due to hypertension, diabetes, vascular disease, CHF + need for diuretics, and age-related change * was following with Dr. Santos (but has not been seen since December 2022) but was lost to follow-up (3) Acute hypoxic respiratory failure: Code(s): J96.01 - Acute respiratory failure with hypoxia Status: Acute Assessment and Plan: * likely multifactorial: * CHF exacerbation * large bilateral pleural effusions * pulmonary edema * pneumonia(?) * severe pulmonary hypertension * COPD * admission imaging findings noted * no evidence of PE * supplemental oxygen * BiPAP therapy PRN * follow response to diuresis * plan thoracentesis by IR when able * follow respiratory status (4) Acute exacerbation of CHF (congestive heart failure): Qualifiers: Heart failure type: unspecified Qualified Code(s): I50.9 - Heart failure, unspecified Code(s): I50.9 - Heart failure, unspecified Status: Acute Assessment and Plan: * acute on chronic * suspected based on presentation and evaluation to date * admission CXR and CT of chest with pulmonary edema [place] [address] [place] * last Echo noted (October 2024): * left ventricular systolic function is normal, estimated at 50-55% * right ventricular systolic function is normal * 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 * mild tricuspid valve regurgitation * pulmonary hypertension, estimated pulmonary arterial systolic pressure is 65 mmHg * on IV lasix * follow I/Os, daily weights, and respiratory status (5) Anemia: Code(s): D64.9 - Anemia, unspecified Status: Acute Assessment and Plan: * suspect due to underlying CKD * however, given recent CT imaging/findings, malignany could be playing a role * no need for SURESH at this time * follow trend of H/H (6) A-fib: Qualifiers: Atrial fibrillation type: persistent (not longstanding) Qualified Code(s): I48.19 - Other persistent atrial fibrillation Code(s): I48.91 - Unspecified atrial fibrillation Status: Chronic Assessment and Plan: * known history * continue rate control strategy * not on anticoagulation (due to recurrent epistaxis?) (7) HTN (hypertension): Qualifiers: Hypertension type: unspecified Qualified Code(s): I10 - Essential (primary) hypertension Code(s): I10 - Essential (primary) hypertension Status: Chronic Assessment and Plan: * reasonable control * may improve further with diuresis * follow trend of hemodynamics (8) Type 2 diabetes mellitus with diabetic nephropathy, with long-term current use of insulin: Code(s): E11.21 - Type 2 diabetes mellitus with diabetic nephropathy; Z79.4 - FCI (current) use of insulin Status: Chronic Assessment and Plan: * follow accu-cheks * glycemic control per hospitalist Patient and family to discuss butterm[employer] continuous [employer] goals of care and therapy including hospice -- patient is not interested in dialysis as treatment option and recent imaging is concerning for the possible malignancy in her liver as well as her kidneys (hepatomegaly with enhancing area in the left lobe -- Mass is highly suggestive...isodense lesion is seen posterior to the right kidney and in the left kidney upper pole.) Will continue to follow. L Subjective Date/time seen: 03/12/25 11:10 Interval history: Follow-up for acute kidney injury/acute renal failure on chronic kidney disease. Renal function/creatinine appears about the same if not a tad better in comparison to admission; still making urine in response to diuretic therapy; unfortunately, she reports her breathing has not changed significantly and she still feels short of breath; no other issues/events overnight or earlier this morning. Exam 2 Narrative: General: somewhat ill appearing, elderly and frail female in no acute distress Heart: normal S1 and S2; no rub Lungs: coarse and diminished bilaterally at bases Abdomen: soft, nontender, nondistended, positive bowel sounds Extremities: no cyanosis or clubbing; no edema Skin: warm and dry Objective Data Vital Signs Vital Signs: Vital Signs Temp Pulse Resp BP Pulse Ox O2 Del Method O2 Flow Rate 03/12/25 11:53 98.0 F 72 24 H 137/66 97 03/12/25 10:00 74 03/12/25 08:39 84 03/12/25 08:38 92 Nasal Cannula 2 03/12/25 08:00 77 03/12/25 08:00 95 Nasal Cannula 2 03/12/25 08:00 98.0 F 85 20 143/71 H 92 03/12/25 06:00 78 03/12/25 04:00 82 03/12/25 03:28 97.9 F 85 25 H 135/71 96 03/12/25 02:35 75 28 H 95 BiPAP 03/12/25 02:00 75 03/12/25 00:00 78 03/11/25 23:48 98.7 F 81 29 H 140/60 98 03/11/25 23:22 88 31 H 96 BiPAP 03/11/25 22:32 94 Nasal Cannula 2 03/11/25 22:00 84 03/11/25 21:05 87 03/11/25 20:00 80 03/11/25 20:00 98.6 F 83 16 155/68 H 94 03/11/25 18:00 77 03/11/25 16:00 92 Nasal Cannula 2 03/11/25 16:00 64 03/11/25 15:43 98.1 F 68 24 H 134/56 L 92 Intake/Output Intake/Output: Intake & Output 03/09/25 03/10/25 03/11/25 03/12/25 23:59 23:59 23:59 23:59 Intake Total 800 1250 120 Output Total 1200 300 Balance 800 50 -180 Meds/Results Medications: Active Medications Generic Name Dose Route Start Last Admin Trade Name Freq PRN Reason Stop Dose Admin Acetaminophen 650 mg 03/10/25 23:10 Acetaminophen 325 Mg Tablet PO Q4H PRN Mild Pain (1-3) or Fever Hydrocodone Bitart/Acetaminophen 1 tab 03/11/25 01:50 Hydrocodone/Acetaminophen (*Crx) 5-325 Mg Tablet PO Q6H PRN Pain Rated 6-10 Amoxicillin/Clavulanate Potassium 1 tablet 03/13/25 09:00 Amoxicillin/Clavulanate K 500-125 Mg Tab PO 03/17/25 21:01 Q12HR SUKUMAR Azithromycin 500 mg 05/27/25 09:00 Azithromycin 250 Mg Tablet PO 03/15/25 09:01 DAILY SUKUMAR Carvedilol 12.5 mg 03/11/25 09:00 03/12/25 08:39 Carvedilol 12.5 Mg Tablet PO 12.5 mg Q12HR SUKUMAR Administration Cyclosporine 1 drop 03/11/25 09:00 03/12/25 08:40 Cyclosporine 0.4 Ml Ophth Solution EACH EYE 1 drop DAILY SUKUMAR Administration Dextrose 12.5 gm 03/11/25 02:06 Dextrose 50% 25 Gm/50 Ml Syringe IV PUSH PRN PRN Hypoglycemia Protocol Diltiazem HCl 240 mg 03/11/25 09:00 03/12/25 08:39 Diltiazem Hcl Cd 240 Mg Cap.24hr PO 240 mg DAILY SUKUMAR Administration Ezetimibe 10 mg 03/11/25 09:00 03/12/25 08:40 Ezetimibe 10 Mg Tablet PO Not Given DAILY [facility] Furosemide 40 mg 03/11/25 09:00 03/12/25 08:39 Furosemide Inj 40 Mg/4 Ml Vial IV PUSH 40 mg BID SUKUMAR Administration Glucagon 1 mg 03/11/25 02:06 Glucagon For Inj 1 Mg Vial IM PRN PRN Hypoglycemia Protocol Glucose 15 gm 03/11/25 02:06 Glucose Oral Gel 15 Gm Of Glucse In 37.5 Gm Tube PO PRN PRN Hypoglycemia Protocol Hydralazine HCl 25 mg 03/11/25 09:00 03/12/25 08:40 Hydralazine Hcl 25 Mg Tablet PO 25 mg BID SUKUMAR Administration Dextrose 1,000 mls @ 100 mls/hr 03/11/25 02:06 Dextrose 5% 1,000 Ml IVPB PRN PRN Hypoglycemia Protocol Insulin Aspart 2 - 5 units 03/11/25 08:00 03/12/25 12:04 Insulin Aspart (*Bkc) 100 Units/Ml SUB-Q Not Given TIDWM [facility] Protocol Loratadine 10 mg 03/11/25 09:00 03/12/25 08:40 Loratadine 10 Mg Tablet PO 10 mg QAM SUKUMAR Administration Nitroglycerin 1 inch 03/11/25 06:00 03/12/25 12:28 Nitroglycerin Ointment 1 Inch Dose TRANSDERM 1 inch Q6HR SUKUMAR Administration Ondansetron HCl 4 mg 03/10/25 23:10 Ondansetron Inj 4 Mg/2 Ml Vial IV PUSH Q4H PRN Nausea Potassium Chloride 20 meq 03/11/25 09:00 03/11/25 08:53 Potassium Chloride 20 Meq Er Tablet PO 20 meq Q48H SUKUMAR Administration Radiology Results: ITS Impressions Chest X-Ray 03/10/25 19:46 IMPRESSION: Cardiomegaly with cardiac decompensation and pulmonary edema. Bibasilar atelectasis versus pneumonia with left pleural effusion. Chest/Abdomen/Pelvis CTA 03/10/25 21:30 IMPRESSION: CHEST: 1. No pulmonary embolism. 2. Cardiomegaly. 3. Bilateral large pleural effusion with adjacent atelectasis versus pneumonia. 4. Highly suggestive pulmonary edema seen bilaterally. 5. Trace of pericardial effusion. 6. Hilar and mediastinal lymphadenopathy. ABDOMEN/PELVIS: 1. No evidence of appendicitis, diverticulitis or intestinal obstruction. 2. Hepatomegaly with enhancing area in the left lobe. Mass is highly suggestive. Further evaluation advised. 3. Distended gallbladder with no stones. Surrounding edema is seen. No change from previous examination. 4. Small cyst seen between the gallbladder and the liver. 5. Sliding hiatus hernia 6. Enhancing mass in the right kidney laterally which may be renal cell carcinoma. Further evaluation advised. 7. Isodense lesion is seen posterior to the right kidney and in the left kidney upper pole. Follow-up advised. 8. Bilateral renal stones. 9. Bilateral renal cysts. 10. Free fluid in the pelvis. Evidence of perforation is not demonstrated. Follow-up advised. 11. Slightly thickened sigmoid colon. 12. Fat-containing left left inguinal hernia with minimal fluid.. Labs Labs: Laboratory Tests 03/12/25 04:02 03/12/25 04:02 Calcium 7.9 L Total Bilirubin 0.5 AST 12 L ALT 9 Alkaline Phosphatase 65 Total Protein 5.0 L Albumin 3.0 L Microbiology 03/10/25 20:12 Blood Blood Culture - Preliminary 03/10/25 20:12 Blood Blood Culture - Preliminary
[2025-03-12 12:16] LABS: Glucose Point of Care 144 mg/dl (65-105)
--- NOTE | 2025-03-12 16:43 | P.CONPL_ITS ---
Assessment and Plan Assessment and plan (1) Acute respiratory failure with hypoxia: Code(s): J96.01 - Acute respiratory failure with hypoxia Status: Acute Assessment and Plan: Recently at last discharge was discharged home with supplemental O2. now using 2 L to maintain saturation 92% to 97% (2) Bilateral pleural effusion: Code(s): J90 - Pleural effusion, not elsewhere classified Status: Acute Assessment and Plan: due to systolic heart failure, passive hepatic congestion; thoracentesis ordered, planned for tomorrow (3) Pulmonary edema: Qualifiers: Chronicity: acute Qualified Code(s): J81.0 - Acute pulmonary edema Code(s): J81.1 - Chronic pulmonary edema Status: Acute Assessment and Plan: systolic CHF with pulmonary fluid redistribution and pleural effusions; due to chronic renal disease cannot be diuresed excessively (4) COPD (chronic obstructive pulmonary disease): Code(s): J44.9 - Chronic obstructive pulmonary disease, unspecified Status: Acute Assessment and Plan: Continue her home inhaler, Trelegy one puff a day. This is not listed on her home medications, and she is not on it now while admitted. I will re-start this home controller medication. Plan plan: 1) add Trelegy, her home medication for COPD. 2) Adjust BiPAP settings, 12/6 instead of 14/6; lower IPAP. Did not have significant pCO2 elevation on VBG; lower IPAP = more comfortable. 3) thoracentesis scheduled for tomorrow to analyze fluid; I added pH to other orders= cell count and diff, LDH, protein, glucose, cytology. She appears to have pleural effusions due to cardiac and renal dysfunction, with pulmonary disease a smaller element. History of Present Illness History of Present Illness Consult date: 03/12/25 Requesting physician: Yaya Mcmahan MD Chief complaint: Acute on chronic heart failure; CKD Narrative: pt was seen March 12, 2025 at 20:44 Room 202 NEW: Lilli Schofield is an 79-year-old woman admitted with increased shortness of breath March 10; white blood cell count elevated at 13, hemoglobin 11.3 hematocrit 36.3% platelets 198 K, venous blood gas pH 7.33, pCO2 41.8, pO2 51.1, HCO3 21.9 on room air. BUN was 59, creat 3.92, consistent with recent values. 03/10/25 CXR :cardiomegaly with cardiac decompensation and pulmonary edema. Bibasilar atelectasis versus pneumonia with left pleural effusion. The CXR appears consistent with CHF. She used BiPAP last night 31/03, rate 18, 30%, felt that it helped somewhat. She has only had o2 at home recently, using it prn. For COPD, uses Trelegy one puff a day, and quit smoking 10 years ago. She has had multiple admissions since the start of this year November 02 through , acute systolic congestive heart failure; also AFib, CKD,DMtype 2 November 30 through ; acute CHF; also a fib, HTn, shortness of breath March 07 through March 09; abdominal pain, nausea without vomiting, bilateral effusions; she had a possible biliary stricture versus a right upper quadrant mass, needed referral to GI at [facility]; she had a congested liver and enhancing area in the left lobe of the liver PMH: moderate to severe pulmonary hypertension; HFpEF, chronic kidney disease stage 4 paroxysmal atrial fibrillation not on anticoagulation due to history of recurrent epistaxis DATA * 03/10/2025; chest CT ; IMPRESSION: CHEST: 1. No pulmonary embolism. 2. Cardiomegaly. 3. Bilateral large pleural effusion with adjacent atelectasis versus pneumonia. 4. Highly suggestive pulmonary edema seen bilaterally. 5. Trace of pericardial effusion. 6. Hilar and mediastinal lymphadenopathy. ABDOMEN/PELVIS: 1. No evidence of appendicitis, diverticulitis or intestinal obstruction. 2. Hepatomegaly with enhancing area in the left lobe. Mass is highly suggestive. Further evaluation advised. 3. Distended gallbladder with no stones. Surrounding edema is seen. No change from previous examination. 4. Small cyst seen between the gallbladder and the liver. 5. Sliding hiatus hernia 6. Enhancing mass in the right kidney laterally which may be renal cell carcinoma. Further evaluation advised. 7. Isodense lesion is seen posterior to the right kidney and in the left kidney upper pole. Follow-up advised. 8. Bilateral renal stones. 9. Bilateral renal cysts. 10. Free fluid in the pelvis. Evidence of perforation is not demonstrated. Follow-up advised. 11. Slightly thickened sigmoid colon. 12. Fat-containing left left inguinal hernia with minimal fluid.. Review of Systems 2 Review of Systems: Early satiety, abdominal swelling. Does not ever have leg swelling. Increased shortness of breath recently. No chest pain. 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 A-fib Paroxysmal Myocardial infarction Seasonal allergies Hypertensive heart disease with heart failure Surgical History Surgical History Intertrochanteric fracture of right hip ORIF with trochanteric nail September 13, 2023 H/O: hysterectomy H/O cardiac catheterization H/O maze procedure H/O mitral valve repair With a ring Family History Family History Mother Family history of diabetes mellitus in first degree relative Family history of lung cancer Father Family history of coronary artery disease Hypertension Sibling Family history of diabetes mellitus in first degree relative Social History Social History (Updated 03/11/25 @ 06:05 by Julia Sanchez DO) Social History: She with her for over 50 years. She desires to be full code. She smoked half a pack a cigarettes per day for 40 years quit March 14, 2014. No illicit drug use but does occasionally drink alcohol. 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 She has 2 children and 2 grandchildren. Her has dementia and she nominated her daughter Debbie to be the one to make medical decisions for her if she is unable. Smoking packs per day: 0.5 Smoking cigarettes per day: 10.0 Years smoked: 30 Smoking pack-years: 15.00 Smoking status: Former smoker Tobacco type: cigarettes Second hand tobacco smoke exposure: Yes Additional smoking assessment comments: Occasional smoker for 40 years Alcohol intake: never Drinks per week: 0 Alcohol use details: once a year Substance use: never Substance use type: does not use Do You Feel Safe in your Home?: Yes Lack of Transportation: No Lack of Food: Never True Current Housing: I Have Housing Concerned About Future Housing: No Difficulty Paying Gas/Electric Bills: No Difficulty Paying for Meds: No Currently Unemployed: No Education: Bachelor's Degree Difficulty w/ Childcare or Family Care: No Living arrangements: assisted living Additional living arrangements comments: [place] Occupation/Education: retired Gender identity (if verbalized by the patient): Female Sexual Orientation (if Verbalized by the Patient): Straight or Heterosexual Spiritual care concerns: No Agree to blood products: Yes Meds Home Medications and Allergies Home Medications ?Medication ?Instructions ?Recorded ?Confirmed ?Type cyclosporine 0.05 % eye drops 1 drop ophthalmic (eye) DAILY 10/24/19 03/11/25 History (Restasis MultiDose) diltiazem HCl 240 mg 240 mg PO DAILY #30 caps 12/30/19 03/11/25 Rx capsule,extended release 24 hr acetaminophen 500 mg tablet 500 mg PO Q6H PRN pain 06/22/24 03/11/25 History (Tylenol Extra Strength) carvedilol 12.5 mg tablet 12.5 mg PO Q12H 06/22/24 03/11/25 History blood sugar diagnostic (FreeStyle #100 ea 08/30/24 03/11/25 Rx Test strips) lancets 28 gauge (FreeStyle #100 ea 08/30/24 03/11/25 Rx Lancets) ezetimibe 10 mg tablet 10 mg PO DAILY #90 tabs 09/28/24 03/11/25 Rx furosemide 40 mg tablet 40 mg PO DAILY #90 tabs 11/06/24 03/11/25 Rx hydralazine 25 mg tablet 25 mg PO BID #180 tabs 11/08/24 03/11/25 Rx potassium chloride 20 mEq 20 meq PO .COMPLEX #45 tabs 12/15/24 03/11/25 Rx tablet,extended release(part/cryst) (Klor-Con M) cetirizine 10 mg tablet 10 mg PO DAILY #20 tabs 01/18/25 03/11/25 Rx hydrocodone 5 mg-acetaminophen 325 1 tablet PO Q6H PRN Pain Rated 4-6 03/09/25 03/11/25 Rx mg tablet #10 tabs ondansetron 4 mg disintegrating 4 mg PO Q8H PRN nausea and 03/09/25 03/11/25 Rx tablet vomiting #10 tabs Allergies Allergy/AdvReac Type Severity Reaction Status Date / Time amiodarone Allergy Severe Unresponsiv Verified 03/07/25 07:41 e Vital Signs Vital Signs - 24 hr 03/11/25 18:00 03/11/25 20:00 03/11/25 20:00 Temperature 37.0 C Pulse Rate 77 83 80 Respiratory Rate 16 Blood Pressure 155/68 H Pulse Oximetry 94 Oxygen Delivery Oxygen Flow Rate Fraction of Inspired Oxygen 03/11/25 21:05 03/11/25 22:00 03/11/25 22:32 Temperature Pulse Rate 87 84 Respiratory Rate Blood Pressure Pulse Oximetry 94 Oxygen Delivery Nasal Cannula Oxygen Flow Rate 2 Fraction of Inspired Oxygen 03/11/25 23:22 03/11/25 23:48 03/12/25 00:00 Temperature 37.1 C Pulse Rate 88 81 78 Respiratory Rate 31 H 29 H Blood Pressure 140/60 Pulse Oximetry 96 98 Oxygen Delivery BiPAP Oxygen Flow Rate Fraction of Inspired Oxygen 03/12/25 02:00 03/12/25 02:35 03/12/25 03:28 Temperature 36.6 C Pulse Rate 75 75 85 Respiratory Rate 28 H 25 H Blood Pressure 135/71 Pulse Oximetry 95 96 Oxygen Delivery BiPAP Oxygen Flow Rate Fraction of Inspired Oxygen 03/12/25 04:00 03/12/25 06:00 03/12/25 08:00 Temperature 36.7 C Pulse Rate 82 78 85 Respiratory Rate 20 Blood Pressure 143/71 H Pulse Oximetry 92 Oxygen Delivery Oxygen Flow Rate Fraction of Inspired Oxygen 03/12/25 08:00 03/12/25 08:00 03/12/25 08:38 Temperature Pulse Rate 77 Respiratory Rate Blood Pressure Pulse Oximetry 95 92 Oxygen Delivery Nasal Cannula Nasal Cannula Oxygen Flow Rate 2 2 Fraction of Inspired Oxygen 03/12/25 08:39 03/12/25 10:00 03/12/25 12:00 Temperature 36.7 C Pulse Rate 84 74 72 Respiratory Rate 24 H Blood Pressure 137/66 Pulse Oximetry 97 Oxygen Delivery Oxygen Flow Rate Fraction of Inspired Oxygen 03/12/25 12:00 03/12/25 12:00 03/12/25 14:00 Temperature Pulse Rate 80 67 Respiratory Rate Blood Pressure Pulse Oximetry 97 Oxygen Delivery BiPAP Oxygen Flow Rate Fraction of Inspired Oxygen 30 03/12/25 16:00 Temperature Pulse Rate Respiratory Rate Blood Pressure Pulse Oximetry 97 Oxygen Delivery BiPAP Oxygen Flow Rate Fraction of Inspired Oxygen 30 Exam 2 Narrative: GEN: Alert, oriented, not in distress. Nasal cannula 2 L, sat is 97%, resp rate 26, using accessory muscles of respiration HEENT: pupils are equal, EOMI, symmetrical face; oral membranes moist, NECK: Trachea is midline CHEST: Equal air entry, symmetric excursion, decreased breath sounds both bases, no wheezes CV: Irregularly irregular S1S2 no m/g/r ABD : (+) bowel sounds Extremities : no clubbing, cyanosis, or edema, skin is warm, dry, no rashes PSYCH: normal thought and speech, gait is not tested Results Laboratory Findings 03/12/25 04:02 03/12/25 04:02 ABG, PT/INR, D-dimer: PT/INR, D-dimer PT 14.2 Seconds (11.1-14.7) 03/10/25 20:12 INR 1.1 03/10/25 20:12 D-Dimer 1.36 ug/mL (<0.48) H 03/10/25 19:05 Abnormal lab findings: Abnormal Labs 03/10/25 03/10/25 03/10/25 19:05 19:06 20:23 WBC 13.0 H RBC 3.68 L Hgb 11.3 L Hct 36.3 L MCV MCHC 31.1 L Plt Count MPV 10.5 H Immature Gran % (Auto) 0.6 H Neut % (Auto) 82.9 H Lymph % (Auto) 6.4 L [place] % (Auto) 9.0 H Lymph # (Auto) 0.83 L [place] # (Auto) 1.2 H Abs Immat Gran (auto) 0.08 H Absolute Neuts (auto) 10.8 H D-Dimer 1.36 H VBG pCO2 41.8 L VBG pO2 52.1 H VBG HCO3 21.9 L Sodium 136 L BUN 59 H D Creatinine 3.92 H Estimated GFR 11 L Glucose 192 H POC Capillary Glucose Calcium 8.1 L Phosphorus AST C-Reactive Protein 3.7 H NT-Pro-B Natriuret Pep 95495 H Total Protein Albumin Urine Appearance Urine Protein Urine Glucose (UA) Random Vancomycin 03/10/25 03/11/25 03/11/25 21:11 00:54 03:58 WBC 11.5 H RBC 3.30 L Hgb 10.1 L Hct 33.1 L MCV 100.3 H MCHC 30.5 L Plt Count 145 L MPV 10.6 H Immature Gran % (Auto) Neut % (Auto) Lymph % (Auto) [place] % (Auto) Lymph # (Auto) [place] # (Auto) Abs Immat Gran (auto) Absolute Neuts (auto) D-Dimer VBG pCO2 VBG pO2 VBG HCO3 Sodium BUN Creatinine Estimated GFR Glucose POC Capillary Glucose 138 H Calcium Phosphorus AST C-Reactive Protein NT-Pro-B Natriuret Pep Total Protein Albumin Urine Appearance Cloudy H Urine Protein 3+ H Urine Glucose (UA) Trace H Random Vancomycin 03/11/25 03/11/25 03/11/25 05:20 08:34 14:11 WBC RBC Hgb Hct MCV MCHC Plt Count MPV Immature Gran % (Auto) Neut % (Auto) Lymph % (Auto) [place] % (Auto) Lymph # (Auto) [place] # (Auto) Abs Immat Gran (auto) Absolute Neuts (auto) D-Dimer VBG pCO2 VBG pO2 VBG HCO3 Sodium BUN 57 H Creatinine 3.83 H Estimated GFR 11 L Glucose 117 H POC Capillary Glucose 111 H 214 H Calcium 7.8 L Phosphorus 5.7 H AST C-Reactive Protein NT-Pro-B Natriuret Pep Total Protein Albumin Urine Appearance Urine Protein Urine Glucose (UA) Random Vancomycin 03/11/25 03/11/25 03/11/25 15:30 19:55 20:30 WBC RBC Hgb Hct MCV MCHC Plt Count MPV Immature Gran % (Auto) Neut % (Auto) Lymph % (Auto) [place] % (Auto) Lymph # (Auto) [place] # (Auto) Abs Immat Gran (auto) Absolute Neuts (auto) D-Dimer VBG pCO2 VBG pO2 VBG HCO3 Sodium BUN Creatinine Estimated GFR Glucose POC Capillary Glucose 175 H 116 H Calcium Phosphorus AST C-Reactive Protein NT-Pro-B Natriuret Pep Total Protein Albumin Urine Appearance Urine Protein Urine Glucose (UA) Random Vancomycin 9.9 L 03/12/25 03/12/25 03/12/25 04:02 04:02 04:02 WBC RBC 3.05 L Hgb 9.3 L Hct 30.5 L MCV MCHC 30.5 L Plt Count MPV 11.4 H Immature Gran % (Auto) Neut % (Auto) Lymph % (Auto) [place] % (Auto) Lymph # (Auto) [place] # (Auto) Abs Immat Gran (auto) Absolute Neuts (auto) D-Dimer VBG pCO2 VBG pO2 VBG HCO3 Sodium 136 L BUN 62 H 63 H Creatinine 3.72 H 3.89 H Estimated GFR Glucose POC Capillary Glucose Calcium Phosphorus AST C-Reactive Protein NT-Pro-B Natriuret Pep Total Protein Albumin Urine Appearance Urine Protein Urine Glucose (UA) Random Vancomycin 03/12/25 03/12/25 03/12/25 04:02 04:02 04:02 WBC RBC Hgb Hct MCV MCHC Plt Count MPV Immature Gran % (Auto) Neut % (Auto) Lymph % (Auto) [place] % (Auto) Lymph # (Auto) [place] # (Auto) Abs Immat Gran (auto) Absolute Neuts (auto) D-Dimer VBG pCO2 VBG pO2 VBG HCO3 Sodium BUN Creatinine 3.67 H Estimated GFR 12 L 11 L 12 L Glucose POC Capillary Glucose Calcium 7.9 L Phosphorus AST C-Reactive Protein NT-Pro-B Natriuret Pep Total Protein Albumin Urine Appearance Urine Protein Urine Glucose (UA) Random Vancomycin 03/12/25 03/12/25 04:02 11:22 WBC RBC Hgb Hct MCV MCHC Plt Count MPV Immature Gran % (Auto) Neut % (Auto) Lymph % (Auto) [place] % (Auto) Lymph # (Auto) [place] # (Auto) Abs Immat Gran (auto) Absolute Neuts (auto) D-Dimer VBG pCO2 VBG pO2 VBG HCO3 Sodium BUN Creatinine Estimated GFR Glucose POC Capillary Glucose 144 H Calcium 7.9 L Phosphorus AST 12 L C-Reactive Protein NT-Pro-B Natriuret Pep Total Protein 5.0 L Albumin 3.0 L Urine Appearance Urine Protein Urine Glucose (UA) Random Vancomycin
[2025-03-12] MEDS: ONDANSETRON INJ 4 MG/2 ML VIAL IV PUSH (20:50)
[2025-03-13] VITALS (13 sets, daily range): BP systolic 117–142; BP diastolic 54–86; PULSE 68–85; RESP 18–26; TEMP 36.1–36.8; O2SAT 94–97; BMI 25.5
[2025-03-13 04:55] LABS: Basophils Absolute Auto 0.1 K/mm3 (0.0-0.1); Basophils Percent Auto 0.7 % (0.2-1.2); Eosinophils Absolute Auto 0.7 K/mm3 (0-0.3); Eosinophils Percent Auto 9.4 % (0-4.4); Hematocrit 31.8 % (37.0-47.0); Hemoglobin 9.9 g/dL (12.0-15.0); Immature Granulocyte Absolute 0.04 K/mm3 (0.00-0.031); Immature Granulocyte Percent A 0.5 % (0-0.5); Lymphocytes Absolute Auto 1.02 K/mm3 (0.9-3.2); Lymphocytes Percent Auto 13.5 % (18.3-44.2); Mean Corpuscular HGB Conc 31.1 g/dl (32-36); Mean Corpuscular Hemoglobin 30.7 pg (26-34); Mean Corpuscular Volume 98.5 fl (80-100); Mean Platelet Volume 10.8 fl (7.4-10.4); Monocytes Absolute Auto 0.8 K/mm3 (0.1-0.6); Monocytes Percent Auto 10.9 % (2.6-8.5); Neutrophils Absolute Auto 4.9 K/mm3 (1.3-6.7); Platelet Count Result 177 k/mm3 (150-375); Red Blood Count 3.23 M/mm3 (4.2-5.4); Red Cell Distribution Width 13.3 % (11.5-14.5); White Blood Count 7.5 K/mm3 (4.5-10.0)
[2025-03-13 05:06] LABS: Alanine Aminotransferase 7 U/L (6-35); Albumin Level 3.1 g/dL (3.5-5.1); Alkaline Phosphatase 62 U/L (38-126); Anion Gap 10 mmol/L (4-12); Aspartate Amino Transferase 14 U/L (14-36); Bilirubin,Total 0.5 mg/dL (0.2-1.3); Blood Urea Nitrogen 66 mg/dL (7-17); Carbon Dioxide 25 mmol/L (22-30); Chloride 102 mmol/L (98-107); Estimated CRCL calculation 10 ml/min; Estimated Glomerular Filt Rate 10; Glucose 91 mg/dL (65-110); Phosphorus 6.3 mg/dL (2.5-4.5); Potassium 3.7 mmol/L (3.4-5.0); Sodium 137 mmol/L (137-145)
[2025-03-13] MEDS: NITROGLYCERIN OINTMENT 1 INCH DOSE TRANSDERM ×3 (05:22→17:18)
[2025-03-13] MEDS: FLUTICASONE/UMECLIDIN/VILANTER 100-62.5-25 MCG ELLIPTA 1 PUFF INHALATION (08:09)
--- NOTE | 2025-03-13 08:40 | PCWOUND ---
WOCN NOTE received a nurse driven consult noting patient had a pressure ulcer present. Spoke with Teto HUITRON for patient today who was told in report that patient's skin is intact. RN to contact wound center if this is incorrect after he does his skin assessment.
--- NOTE | 2025-03-13 10:00 | P.PNNP_ITS ---
Progress Note: A&P Assessment and Plan (1) Acute kidney injury: Code(s): N17.9 - Acute kidney failure, unspecified Status: Acute Assessment and Plan: * ongoing deterioration noted * due to CHF exacerbation and contrast exposure * however, cannot discount an element of CKD progression... * imaging without obstruction * follow trend of repeat labs and UOP (2) Stage 4 chronic kidney disease: Code(s): N18.4 - Chronic kidney disease, stage 4 (severe) Status: Chronic Assessment and Plan: * baseline creatinine runs ~ 2.6 - 3.2mg/dl in the last couple of years * evidence of CKD as far back as 2020 if not longer * due to hypertension, diabetes, vascular disease, CHF + need for diuretics, and age-related change * was following with Dr. Santos (but has not been seen since December 2022) but was lost to follow-up (3) Acute hypoxic respiratory failure: Code(s): J96.01 - Acute respiratory failure with hypoxia Status: Acute Assessment and Plan: * likely multifactorial: * CHF exacerbation * large bilateral pleural effusions * pulmonary edema * pneumonia(?) * severe pulmonary hypertension * COPD * admission imaging findings noted * no evidence of PE * supplemental oxygen * BiPAP therapy PRN * follow response to diuresis * plan thoracentesis by IR when able * follow respiratory status (4) Acute exacerbation of CHF (congestive heart failure): Qualifiers: Heart failure type: unspecified Qualified Code(s): I50.9 - Heart failure, unspecified Code(s): I50.9 - Heart failure, unspecified Status: Acute Assessment and Plan: * acute on chronic * suspected based on presentation and evaluation to date * admission CXR and CT of chest with pulmonary edema [place] [address] [place] * last Echo noted (October 2024): * left ventricular systolic function is normal, estimated at 50-55% * right ventricular systolic function is normal * 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 * mild tricuspid valve regurgitation * pulmonary hypertension, estimated pulmonary arterial systolic pressure is 65 mmHg * on IV lasix * follow I/Os, daily weights, and respiratory status (5) Anemia: Code(s): D64.9 - Anemia, unspecified Status: Acute Assessment and Plan: * suspect due to underlying CKD * however, given recent CT imaging/findings, malignany could be playing a role * no need for SURESH at this time * follow trend of H/H (6) A-fib: Qualifiers: Atrial fibrillation type: persistent (not longstanding) Qualified Code(s): I48.19 - Other persistent atrial fibrillation Code(s): I48.91 - Unspecified atrial fibrillation Status: Chronic Assessment and Plan: * known history * continue rate control strategy * not on anticoagulation (due to recurrent epistaxis?) (7) HTN (hypertension): Qualifiers: Hypertension type: unspecified Qualified Code(s): I10 - Essential (primary) hypertension Code(s): I10 - Essential (primary) hypertension Status: Chronic Assessment and Plan: * reasonable control * may improve further with diuresis * follow trend of hemodynamics (8) Type 2 diabetes mellitus with diabetic nephropathy, with long-term current use of insulin: Code(s): E11.21 - Type 2 diabetes mellitus with diabetic nephropathy; 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 Will continue to follow depending on results of family meeting with hospice. L Subjective Date/time seen: 03/13/25 10:00 Interval history: Follow-up for acute kidney injury/acute renal failure on chronic kidney disease. No real significant improvement wth regard to her breathing/respiratory status; renal function/creatinine has deteroriated further with a decline in urine output as well despite IV diuretic therapy; noted plans for informational meeting this afternoon; possible thoracentesis today. Exam 2 Narrative: General: somewhat ill appearing, elderly and frail female in no acute distress Heart: normal S1 and S2; no rub Lungs: coarse and diminished bilaterally at bases Abdomen: soft, nontender, nondistended, positive bowel sounds Extremities: no cyanosis or clubbing; no edema Skin: warm and intact Objective Data Vital Signs Vital Signs: Vital Signs Temp Pulse Resp BP Pulse Ox O2 Del Method FiO2 03/13/25 08:42 97.5 F L 75 18 132/58 L 95 03/13/25 08:00 75 18 95 BiPAP 30 03/13/25 06:00 70 03/13/25 04:00 71 03/13/25 04:00 71 21 H 94 BiPAP 30 05/27/25 03:54 98.2 F 68 21 H 117/86 94 03/13/25 02:00 70 03/13/25 01:01 68 20 97 BiPAP 03/13/25 00:00 78 03/13/25 00:00 78 03/13/25 00:00 78 26 H 97 BiPAP 03/12/25 21:54 82 03/12/25 20:49 78 03/12/25 20:22 77 26 H 97 BiPAP 03/12/25 20:00 79 03/12/25 20:00 79 26 H 97 BiPAP 03/12/25 19:55 98.6 F 80 30 H 150/67 H 97 03/12/25 18:00 67 Intake/Output Intake/Output: Intake & Output 03/10/25 03/11/25 03/12/25 03/13/25 23:59 23:59 23:59 23:59 Intake Total 800 1250 540 750 Output Total 1200 600 750 Balance 800 50 -60 0 Meds/Results Medications: Active Medications Generic Name Dose Route Start Last Admin Trade Name Freq PRN Reason Stop Dose Admin Acetaminophen 650 mg 03/10/25 23:10 Acetaminophen 325 Mg Tablet PO Q4H PRN Mild Pain (1-3) or Fever Hydrocodone Bitart/Acetaminophen 1 tab 03/11/25 01:50 Hydrocodone/Acetaminophen (*Crx) 5-325 Mg Tablet PO Q6H PRN Pain Rated 6-10 Amoxicillin/Clavulanate Potassium 1 tablet 03/13/25 09:00 03/13/25 11:03 Amoxicillin/Clavulanate K 500-125 Mg Tab PO 03/17/25 21:01 1 tablet Q12HR SUKUMAR Administration Azithromycin 500 mg 03/13/25 09:00 03/13/25 11:01 Azithromycin 250 Mg Tablet PO 03/15/25 09:01 500 mg DAILY SUKUMAR Administration Carvedilol 12.5 mg 03/11/25 09:00 03/13/25 11:02 Carvedilol 12.5 Mg Tablet PO 12.5 mg Q12HR SUKUMAR Administration Cyclosporine 1 drop 03/11/25 09:00 03/13/25 11:28 Cyclosporine 0.4 Ml Ophth Solution EACH EYE 1 drop DAILY SUKUMAR Administration Dextrose 12.5 gm 03/11/25 02:06 Dextrose 50% 25 Gm/50 Ml Syringe IV PUSH PRN PRN Hypoglycemia Protocol Diltiazem HCl 240 mg 03/11/25 09:00 03/13/25 11:02 Diltiazem Hcl Cd 240 Mg Cap.24hr PO 240 mg DAILY SUKUMAR Administration Ezetimibe 10 mg 03/11/25 09:00 03/13/25 11:01 Ezetimibe 10 Mg Tablet PO 10 mg DAILY SUKUMAR Administration Enoxaparin Sodium 40 mg 03/14/25 09:00 Enoxaparin 40 Mg/0.4 Ml Syringe SUB-Q DAILY SUKUMAR Fluticasone/Umeclidinium/Vilanterol 1 puff 03/13/25 08:00 03/13/25 08:09 Fluticasone/Umeclidin/Vilanter 100-62.5-25 Mcg Ellipta INHALATION 1 puff DAILYRT SUKUMAR Administration Furosemide 40 mg 03/11/25 09:00 03/13/25 11:28 Furosemide Inj 40 Mg/4 Ml Vial IV PUSH 40 mg BID SUKUMAR Administration Glucagon 1 mg 03/11/25 02:06 Glucagon For Inj 1 Mg Vial IM PRN PRN Hypoglycemia Protocol Glucose 15 gm 03/11/25 02:06 Glucose Oral Gel 15 Gm Of Glucse In 37.5 Gm Tube PO PRN PRN Hypoglycemia Protocol Hydralazine HCl 25 mg 03/11/25 09:00 03/13/25 11:03 Hydralazine Hcl 25 Mg Tablet PO 25 mg BID SUKUMAR Administration Dextrose 1,000 mls @ 100 mls/hr 03/11/25 02:06 Dextrose 5% 1,000 Ml IVPB PRN PRN Hypoglycemia Protocol Insulin Aspart 2 - 5 units 03/11/25 08:00 03/13/25 11:28 Insulin Aspart (*Bkc) 100 Units/Ml SUB-Q Not Given TIDWM SUKUMAR Protocol Loratadine 10 mg 03/11/25 09:00 03/13/25 11:03 Loratadine 10 Mg Tablet PO 10 mg QAM SUKUMAR Administration Nitroglycerin 1 inch 03/11/25 06:00 03/13/25 11:29 Nitroglycerin Ointment 1 Inch Dose TRANSDERM 1 inch Q6HR SUKUMAR Administration Ondansetron HCl 4 mg 03/10/25 23:10 03/13/25 13:04 Ondansetron Inj 4 Mg/2 Ml Vial IV PUSH 4 mg Q4H PRN Administration Nausea Potassium Chloride 20 meq 03/11/25 09:00 03/13/25 11:03 Potassium Chloride 20 Meq Er Tablet PO 20 meq Q48H SUKUMAR Administration Radiology Results: ITS Impressions Chest X-Ray 03/10/25 19:46 IMPRESSION: Cardiomegaly with cardiac decompensation and pulmonary edema. Bibasilar atelectasis versus pneumonia with left pleural effusion. Chest/Abdomen/Pelvis CTA 03/10/25 21:30 IMPRESSION: CHEST: 1. No pulmonary embolism. 2. Cardiomegaly. 3. Bilateral large pleural effusion with adjacent atelectasis versus pneumonia. 4. Highly suggestive pulmonary edema seen bilaterally. 5. Trace of pericardial effusion. 6. Hilar and mediastinal lymphadenopathy. ABDOMEN/PELVIS: 1. No evidence of appendicitis, diverticulitis or intestinal obstruction. 2. Hepatomegaly with enhancing area in the left lobe. Mass is highly suggestive. Further evaluation advised. 3. Distended gallbladder with no stones. Surrounding edema is seen. No change from previous examination. 4. Small cyst seen between the gallbladder and the liver. 5. Sliding hiatus hernia 6. Enhancing mass in the right kidney laterally which may be renal cell carcinoma. Further evaluation advised. 7. Isodense lesion is seen posterior to the right kidney and in the left kidney upper pole. Follow-up advised. 8. Bilateral renal stones. 9. Bilateral renal cysts. 10. Free fluid in the pelvis. Evidence of perforation is not demonstrated. Follow-up advised. 11. Slightly thickened sigmoid colon. 12. Fat-containing left left inguinal hernia with minimal fluid.. Labs Labs: Laboratory Tests 03/13/25 04:35 03/13/25 04:35 Calcium 8.0 L Phosphorus 6.3 H Total Bilirubin 0.5 AST 14 ALT 7 Alkaline Phosphatase 62 Total Protein 6.0 L Albumin 3.1 L
[2025-03-13] MEDS: EZETIMIBE 10 MG TABLET PO (11:01)
[2025-03-13] MEDS: AZITHROMYCIN 250 MG TABLET 500 MG PO (11:01)
[2025-03-13] MEDS: carvediloL 12.5 MG TABLET PO ×2 (11:02→20:34)
[2025-03-13] MEDS: dilTIAZem HCL CD 240 MG CAP.24HR PO (11:02)
[2025-03-13] MEDS: LORATADINE 10 MG TABLET PO (11:03)
[2025-03-13] MEDS: AMOXICILLIN/CLAVULANATE K 500-125 MG TAB 1 TABLET PO ×2 (11:03→20:34)
[2025-03-13] MEDS: POTASSIUM CHLORIDE 20 MEQ ER TABLET PO (11:03)
[2025-03-13] MEDS: hydrALAZINE HCL 25 MG TABLET PO ×2 (11:03→17:17)
[2025-03-13 11:14] LABS: Ionized Calcium 4.5 mg/dL (4.7-5.5)
[2025-03-13] MEDS: FUROSEMIDE INJ 40 MG/4 ML VIAL IV PUSH ×2 (11:28→17:17)
[2025-03-13] MEDS: cycloSPORINE 0.4 ML OPHTH SOLUTION 1 DROP EACH EYE (11:28)
[2025-03-13 11:55] LABS: INR 1.1; Prothrombin Time 14.5 Seconds (11.1-14.7)
[2025-03-13 11:56] LABS: Partial Thromboplastin Time 26.3 Seconds (22.3-36.8)
[2025-03-13] MEDS: ONDANSETRON INJ 4 MG/2 ML VIAL IV PUSH (13:04)
--- NOTE | 2025-03-13 14:35 | PC.NURSE ---
This patient, Vicente Schofield, was received from [facility] on 03/13/25 at 1420. Patient/family oriented to unit policies and routines
--- NOTE | 2025-03-13 15:43 | PM.IMPN ---
Progress Note: A&P Assessment and Plan (1) Acute hypoxic respiratory failure: Code(s): J96.01 - Acute respiratory failure with hypoxia Status: Acute Assessment and Plan: Patient now on baseline oxygen 3 liters Continue Ceftriaxone and zithromycin S/P BiPAP Titrate O2 Furosemide 40 mg IV BID BNP? ECHO 11/03/2024:Left ventricular systolic function is normal, estimated at 50-55%. Pertinent CTA findings:Evidence pulmonary edema/pericardial effusion Hepatomegaly with enhancing area in the left lobe. Mass is highly suggestive Enhancing mass in the right kidney laterally which may be renal cell carcinoma. CTA chest shopwed pulm edema andpericardial effusion CT AP showed hepatomegaly with enhancing area in stef[place] left lobe, mass highly suggestive, enhancing mass in stef[place] right kidney For thoracentesis today Continue Lasix 40mg bid (2) Pulmonary edema: Qualifiers: Chronicity: acute Qualified Code(s): J81.0 - Acute pulmonary edema Code(s): J81.1 - Chronic pulmonary edema Status: Acute Assessment and Plan: Thoracentesis pending continue Lasix (3) Bilateral pleural effusion: Code(s): J90 - Pleural effusion, not elsewhere classified Status: Acute Assessment and Plan: same as above (4) Hepatomegaly: Code(s): R16.0 - Hepatomegaly, not elsewhere classified Status: Acute Assessment and Plan: Will consider GI consult (5) Mediastinal lymphadenopathy: Code(s): R59.0 - Localized enlarged lymph nodes Status: Acute (6) Hilar lymphadenopathy: Code(s): R59.0 - Localized enlarged lymph nodes Status: Acute (7) Acute on chronic heart failure: Qualifiers: Heart failure type: right-sided Qualified Code(s): I50.813 - Acute on chronic right heart failure Code(s): I50.9 - Heart failure, unspecified Status: Acute Assessment and Plan: Continue Furosemide ECHO 10/2024: Left ventricular systolic function is normal, estimated at 50-55%. No evidence of diastolic dysfunction Order BNP (8) Severe pulmonary hypertension: Code(s): I27.20 - Pulmonary hypertension, unspecified Status: Acute (9) Acute kidney injury superimposed on stage 4 chronic kidney disease: Code(s): N17.9 - Acute kidney failure, unspecified; N18.4 - Chronic kidney disease, stage 4 (severe) Status: Acute Assessment and Plan: Avoid nephrotoxic drugs Trend BUN and creatinine Baseline creatinine around 3 Recent contrast exposure Renal ultrasound CPK ordered Trial of IV fluids Nephrology consulted (10) Hyperglycemia due to diabetes mellitus: Code(s): E11.65 - Type 2 diabetes mellitus with hyperglycemia Status: Acute Assessment and Plan: SSI ordered Hypoglycemia (11) Liver mass: Code(s): R16.0 - Hepatomegaly, not elsewhere classified Status: Acute Assessment and Plan: Called Radiology and awaiting call back. Will order biopsy after the discusiion (12) Mass of right kidney: Code(s): N28.89 - Other specified disorders of kidney and ureter Status: Acute Assessment and Plan: Same as above Plan Discussed with patient today she noted she is going hospice tomorrow, thus i told her that since she is conidering goign hospice tomorrow there is no need evlauating the lesions in the liver and kidney any further. she agreed and noted she does not want any further evaluation of the lesions. DVT prophylaxis on Lovenox sq Subjective Date/time seen: 03/13/25 15:43 Interval history: Patient and daughter at bedside noted that patient is going hospice tomorrow however they agreed to proceed wtih thoracentesis in [place] meantime Review of Systems Review of Systems: 12 systems were reviewed with pertinent positives and negatives per HPI. Except as documented in the HPI, all other systems were reviewed and are negative. Exam Narrative: Weight 67.6 kg BMI 23.3 Const: Other: Acutely ill-appearing, appears stated age, frail HENMT: Other: Mucous membranes are tacky oral exam limited due to BiPAP, head is normocephalic atraumatic Eyes: Other: Pupils are equal and reactive, positive conjunctival pallor, no scleral icterus Neck: Other: No JVD, no lymphadenopathy, trachea midline Resp: Other: Tachypnea is intermittent but improved from prior now that she is on BiPAP respiratory rate is down to the mid 20s, decreased breath sounds bilateral posterior lung salas Cardio: Other: Irregular rate, irregular rhythm, 2+ bilateral radial pedal pulses, no JVD GI: Other: Soft, mildly distended, nontender, normoactive bowel sounds : Other: Suprapubic fullness, unable to urinate with pure wick in place Skin: Other: Generalized pallor, non jaundice Neuro: Other: Alert oriented x4, speech is clear, no facial asymmetry, moves all extremities equally, no localizing neurologic deficits noted during conversation exam limited due to patient condition Extrem: Other: No clubbing, cyanosis or edema equal strength bilateral upper and lower extremities Psych: Other: Appropriate mood and affect, cooperative, fair judgment and insight Objective Data Vital Signs Vital Signs: Vital Signs - 24 hr 03/12/25 16:00 03/12/25 16:00 03/12/25 16:00 Temperature 98.0 F Pulse Rate 67 65 Respiratory Rate 31 H Blood Pressure 131/63 Pulse Oximetry 97 97 Oxygen Delivery BiPAP Fraction of Inspired Oxygen 30 03/12/25 18:00 03/12/25 19:55 03/12/25 20:00 Temperature 98.6 F Pulse Rate 67 80 79 Respiratory Rate 30 H 26 H Blood Pressure 150/67 H Pulse Oximetry 97 97 Oxygen Delivery BiPAP Fraction of Inspired Oxygen 30 03/12/25 20:00 03/12/25 20:22 03/12/25 20:49 Temperature Pulse Rate 79 77 78 Respiratory Rate 26 H Blood Pressure Pulse Oximetry 97 Oxygen Delivery BiPAP Fraction of Inspired Oxygen 03/12/25 21:54 03/13/25 00:00 03/13/25 00:00 Temperature Pulse Rate 82 78 78 Respiratory Rate 26 H Blood Pressure Pulse Oximetry 97 Oxygen Delivery BiPAP Fraction of Inspired Oxygen 30 03/13/25 00:00 03/13/25 01:01 03/13/25 02:00 Temperature Pulse Rate 78 68 70 Respiratory Rate 20 Blood Pressure Pulse Oximetry 97 Oxygen Delivery BiPAP Fraction of Inspired Oxygen 03/13/25 03:54 03/13/25 04:00 03/13/25 04:00 Temperature 98.2 F Pulse Rate 68 71 71 Respiratory Rate 21 H 21 H Blood Pressure 117/86 Pulse Oximetry 94 94 Oxygen Delivery BiPAP Fraction of Inspired Oxygen 30 03/13/25 06:00 03/13/25 08:00 03/13/25 08:42 Temperature 97.5 F L Pulse Rate 70 75 75 Respiratory Rate 18 18 Blood Pressure 132/58 L Pulse Oximetry 95 95 Oxygen Delivery BiPAP Fraction of Inspired Oxygen 30 03/13/25 11:02 03/13/25 11:35 Temperature 98.3 F Pulse Rate 85 79 Respiratory Rate 18 Blood Pressure 142/54 H Pulse Oximetry 95 Oxygen Delivery Fraction of Inspired Oxygen Intake/Output Intake/Output: Intake & Output 03/10/25 03/11/25 03/12/25 03/13/25 23:59 23:59 23:59 23:59 Intake Total 800 1250 540 750 Output Total 1200 600 750 Balance 800 50 -60 0 Meds/Results Medications: Active Medications Generic Name Dose Route Start Last Admin Trade Name Freq PRN Reason Stop Dose Admin Acetaminophen 650 mg 03/10/25 23:10 Acetaminophen 325 Mg Tablet PO Q4H PRN Mild Pain (1-3) or Fever Hydrocodone Bitart/Acetaminophen 1 tab 03/11/25 01:50 Hydrocodone/Acetaminophen (*Crx) 5-325 Mg Tablet PO Q6H PRN Pain Rated 6-10 Amoxicillin/Clavulanate Potassium 1 tablet 03/13/25 09:00 03/13/25 11:03 Amoxicillin/Clavulanate K 500-125 Mg Tab PO 03/17/25 21:01 1 tablet Q12HR SUKUMAR Administration Azithromycin 500 mg 03/13/25 09:00 03/13/25 11:01 Azithromycin 250 Mg Tablet PO 03/15/25 09:01 500 mg DAILY SUKUMAR Administration Carvedilol 12.5 mg 03/11/25 09:00 03/13/25 11:02 Carvedilol 12.5 Mg Tablet PO 12.5 mg Q12HR SUKUMAR Administration Cyclosporine 1 drop 03/11/25 09:00 03/13/25 11:28 Cyclosporine 0.4 Ml Ophth Solution EACH EYE 1 drop DAILY SUKUMAR Administration Dextrose 12.5 gm 03/11/25 02:06 Dextrose 50% 25 Gm/50 Ml Syringe IV PUSH PRN PRN Hypoglycemia Protocol Diltiazem HCl 240 mg 03/11/25 09:00 03/13/25 11:02 Diltiazem Hcl Cd 240 Mg Cap.24hr PO 240 mg DAILY SUKUMAR Administration Ezetimibe 10 mg 03/11/25 09:00 03/13/25 11:01 Ezetimibe 10 Mg Tablet PO 10 mg DAILY SUKUMAR Administration Fluticasone/Umeclidinium/Vilanterol 1 puff 03/13/25 08:00 03/13/25 08:09 Fluticasone/Umeclidin/Vilanter 100-62.5-25 Mcg Ellipta INHALATION 1 puff DAILYRT SUKUMAR Administration Furosemide 40 mg 03/11/25 09:00 03/13/25 11:28 Furosemide Inj 40 Mg/4 Ml Vial IV PUSH 40 mg BID SUKUMAR Administration Glucagon 1 mg 03/11/25 02:06 Glucagon For Inj 1 Mg Vial IM PRN PRN Hypoglycemia Protocol Glucose 15 gm 03/11/25 02:06 Glucose Oral Gel 15 Gm Of Glucse In 37.5 Gm Tube PO PRN PRN Hypoglycemia Protocol Hydralazine HCl 25 mg 03/11/25 09:00 03/13/25 11:03 Hydralazine Hcl 25 Mg Tablet PO 25 mg BID SUKUMAR Administration Dextrose 1,000 mls @ 100 mls/hr 03/11/25 02:06 Dextrose 5% 1,000 Ml IVPB PRN PRN Hypoglycemia Protocol Insulin Aspart 2 - 5 units 03/11/25 08:00 03/13/25 11:28 Insulin Aspart (*Bkc) 100 Units/Ml SUB-Q Not Given TIDWM SUKUMAR Protocol Loratadine 10 mg 03/11/25 09:00 03/13/25 11:03 Loratadine 10 Mg Tablet PO 10 mg QAM SUKUMAR Administration Nitroglycerin 1 inch 03/11/25 06:00 03/13/25 11:29 Nitroglycerin Ointment 1 Inch Dose TRANSDERM 1 inch Q6HR SUKUMAR Administration Ondansetron HCl 4 mg 03/10/25 23:10 03/13/25 13:04 Ondansetron Inj 4 Mg/2 Ml Vial IV PUSH 4 mg Q4H PRN Administration Nausea Potassium Chloride 20 meq 03/11/25 09:00 03/13/25 11:03 Potassium Chloride 20 Meq Er Tablet PO 20 meq Q48H SUKUMAR Administration Radiology Results: ITS Impressions Chest X-Ray 03/10/25 19:46 IMPRESSION: Cardiomegaly with cardiac decompensation and pulmonary edema. Bibasilar atelectasis versus pneumonia with left pleural effusion. Chest/Abdomen/Pelvis CTA 03/10/25 21:30 IMPRESSION: CHEST: 1. No pulmonary embolism. 2. Cardiomegaly. 3. Bilateral large pleural effusion with adjacent atelectasis versus pneumonia. 4. Highly suggestive pulmonary edema seen bilaterally. 5. Trace of pericardial effusion. 6. Hilar and mediastinal lymphadenopathy. ABDOMEN/PELVIS: 1. No evidence of appendicitis, diverticulitis or intestinal obstruction. 2. Hepatomegaly with enhancing area in the left lobe. Mass is highly suggestive. Further evaluation advised. 3. Distended gallbladder with no stones. Surrounding edema is seen. No change from previous examination. 4. Small cyst seen between the gallbladder and the liver. 5. Sliding hiatus hernia 6. Enhancing mass in the right kidney laterally which may be renal cell carcinoma. Further evaluation advised. 7. Isodense lesion is seen posterior to the right kidney and in the left kidney upper pole. Follow-up advised. 8. Bilateral renal stones. 9. Bilateral renal cysts. 10. Free fluid in the pelvis. Evidence of perforation is not demonstrated. Follow-up advised. 11. Slightly thickened sigmoid colon. 12. Fat-containing left left inguinal hernia with minimal fluid.. Chest CT 03/13/25 12:06 Impression: Moderate to large bilateral pleural effusions with bibasilar atelectasis and probable associated mild pulmonary edema. Pneumonia felt to be less likely, though not definitively excluded. Labs Labs: Laboratory Results - last 24 hr 03/10/25 03/13/25 03/13/25 20:21 04:35 11:37 WBC 7.5 RBC 3.23 L Hgb 9.9 L Hct 31.8 L MCV 98.5 MCH 30.7 MCHC 31.1 L RDW 13.3 Plt Count 177 MPV 10.8 H Immature Gran % (Auto) 0.5 Neut % (Auto) 65.0 Lymph % (Auto) 13.5 L Powell % (Auto) 10.9 H Eos % (Auto) 9.4 H Baso % (Auto) 0.7 Lymph # (Auto) 1.02 Powell # (Auto) 0.8 H Eos # (Auto) 0.7 H Baso # (Auto) 0.1 Abs Immat Gran (auto) 0.04 H Absolute Neuts (auto) 4.9 Absolute Nucleated RBC 0.000 Nucleated RBC % 0.0 PT 14.5 INR 1.1 APTT 26.3 Sodium 137 Potassium 3.7 Chloride 102 Carbon Dioxide 25 Anion Gap 10 BUN 66 H Creatinine 4.09 H Estim Creat Clear Calc 10 Estimated GFR 10 L Glucose 91 Calcium 8.0 L Ionized Calcium Luci 4.5 L Phosphorus 6.3 H Total Bilirubin 0.5 AST 14 ALT 7 Alkaline Phosphatase 62 Total Protein 6.0 L Albumin 3.1 L Quality VTE Prophylaxis VTE prophylaxis: mechanical ordered (SCDs)
[2025-03-13] MEDS: HYDROcodone/acetaminophen (*CRX) 5-325 MG TABLET 1 TAB PO (20:37)
[2025-03-14 05:20] VITALS: BP 144/72; PULSE 72; RESP 20; TEMP 35.9; O2SAT 97
[2025-03-14 08:00] VITALS: O2SAT 96
[2025-03-14] MEDS: FUROSEMIDE INJ 40 MG/4 ML VIAL IV PUSH (09:45)
[2025-03-14] MEDS: ONDANSETRON INJ 4 MG/2 ML VIAL IV PUSH (09:45)
--- NOTE | 2025-03-14 12:00 | CY_PTH ---
PATIENT: Vicente Schofield LOC: [id number] #:[id number] AGE/SX: 79/F ROOM: 301 RE03/12/[address]: Mirta Winn MD : 1945 BED: 01 DIS: 03/14/2025 SPEC #: [id number] RECD: 03/14/25 12:55 STATUS: JANET REMarita #: [id number] CARLOS: 03/14/25 12:[address]: Julia Sanchez DEPT: [facility] Cytology RECD BY: Ann Marie Harvey ENTERED: 03/14/25 12:56 SP TYPE: Cytology OT DR: MD Jo Parker MD Sriraj T. Kanungo, MD Onyema Nnanna, MD Tissues: A - Pleural Fluid Procedures: Hematoxylin and Eosin Stain Cell Block Cytopathology Cytospin
--- NOTE | 2025-03-14 12:12 | PM.DS ---
DS: Admitting Diagnosis Discharge Date 03/14/25 Admitting Diagnosis Shortness of breath DS: Discharge Diagnosis Discharge Diagnosis (1) Acute respiratory failure with hypoxia: Code(s): J96.01 - Acute respiratory failure with hypoxia Status: Acute (2) Pulmonary edema: Qualifiers: Chronicity: acute Qualified Code(s): J81.0 - Acute pulmonary edema Code(s): J81.1 - Chronic pulmonary edema Status: Acute DS: Summary Hospital Course Hospital Course: 79-year-old female with a past medical history moderate to severe pulmonary hypertension, heart failure with preserved ejection fraction, chronic kidney disease stage 4 paroxysmal atrial fibrillation not on anticoagulation due to history of recurrent epistaxis who presented to the ER from [place] for evaluation of dyspnea on exertion. The patient had been hospitalized 03/08/2025 through 03/09/2025 due to right upper quadrant pain and found to have imaging suggestive of possible biliary stricture and or mass. She had received 1 L fluids while hospitalized. Her CA 19-9 was within normal limits. She was set up with outpatient follow-up at [facility] for endoscopic ultrasound. She reported that since shortly after returning home she has become progressively more short of breath which is worse with exertion. She has become progressively more tachypneic. When she arrived to the ER her respiratory rate was in the mid 30s to low 40s. She denied having any chest pain, cough, congestion, fevers or chills. She reports that she had not had much D because she was only home for 1 day and did not have much of an appetite. She had not had any actual vomiting but was still having some nausea. She reports that she has been having difficulty urinating. She states she can never used a pure wick catheters. At the time of my evaluation the patient stated that she really needed to urinate but could not pass urine. Bladder scan demonstrated almost just below 400 mL of retained urine. Carney catheter was placed and patient had immediate return of 300 mL of urine. Patient denied having any dysuria hematuria. She has been having less than normal bowel movements but again has not been eating. She reports that she usually has lower extremity edema or abdominal swelling when she has heart failure so she is surprised that she is being admitted for heart failure currently. In the ER will chest x-ray and CT demonstrated enlarging bilateral pleural effusions with CTA of chest abdomen and pelvis demonstrating bilateral large pleural effusion and pulmonary edema pattern. CT also demonstrated hepatomegaly with enhancing area left lobe highly suggestive of mass, distended gallbladder without stones with surrounding edema unchanged from prior exam sliding hiatal hernia, right kidney mass which may be concerning for renal cell carcinoma, foot fluid in the pelvis, slightly thickened sigmoid colon fat containing left inguinal hernia. There is also some scattered lymphadenopathy. Patient was managed for Acute hypoxemic respiratory failure, Pulm edema and pleural effusion. Was initially on BiPAP, started on IV lasix, now on baseline oxygen 3 liters. Thoracentesis was performed today. CT also showed renal and liver lesions, however patient declined any workup as she is choosing to go on hospice. [facility] shosed normal EF, discharged on lasix 20mg bid and to complete 7 day treatmetn for possible penumonoa of Augmentin and Azithromycin. discharged to hospice facility for hospice care. F/u with PCP in 3-5 days Time Spent with Patient Time attestation: Total time spent providing and/or coordinating discharge services: DS: Data Data Completed and Pending Pending studies at discharge: Pending at discharge 03/11/25 02:09 Cytology [PTH] Routine Labs on day of discharge: Preliminary micro results at discharge 03/10/25 20:12 Blood Culture - Preliminary Blood 03/10/25 20:12 Blood Culture - Preliminary Blood Discharge Plan Discharge Attending physician on discharge: Mirta Winn Consulting providers: Annia Alvarado; Jo Echavarria Discharging Clinician: Mirta Winn Anticipated Discharge Date/Time: 03/14/25 12:05 Patient Disposition: Hospice - Medical Facility Activity: as tolerated Diet: as tolerated Patient Instructions: Heart Failure (DC), Chronic Kidney Disease (DC) Patient Language: Polish Stand Alone Forms: General Discharge Information Follow-up/Referrals: Quinten Whitlock MD [Primary Care Provider] - (F/u with PCP in 3-5 days ) Discharge Medications: New amoxicillin-pot clavulanate [Augmentin] 500-125 mg Tablet 1 tablet PO Q12HR 4 Days Qty: 8 0RF azithromycin [Zithromax] 250 mg Tablet 500 mg PO DAILY 2 Days Qty: 4 0RF furosemide [Lasix] 20 mg tablet 20 mg PO BID 30 Days Qty: 60 0RF Continued carvedilol 12.5 mg tablet 12.5 mg PO Q12H cetirizine 10 mg tablet 10 mg PO DAILY Qty: 20 0RF Restasis MultiDose 0.05 % drops 1 drop EACH EYE DAILY ezetimibe 10 mg tablet 10 mg PO DAILY Qty: 90 3RF acetaminophen [Tylenol Extra Strength] 500 mg tablet 500 mg PO Q6H PRN (Reason: pain) potassium chloride [Klor-Con M20] 20 mEq tablet,ER particles/crystals 20 meq PO .COMPLEX Qty: 45 1RF Rx Instructions: 20 mEq orally every other day; does 20mEq every other day diltiazem HCl 240 mg capsule,extended release 24hr 240 mg PO DAILY Qty: 30 0RF furosemide 40 mg Tablet 40 mg PO DAILY Qty: 90 0RF hydrocodone-acetaminophen 5-325 mg Tablet 1 tablet PO Q6H PRN (Reason: Pain Rated 4-6) Qty: 10 0RF ondansetron 4 mg tablet,disintegrating 4 mg PO Q8H PRN (Reason: nausea and vomiting) Qty: 10 0RF (DME) FreeStyle Test Strip See Rx Instructions .Route Qty: 100 3RF Rx Instructions: test qam fasting (DME) lancets [FreeStyle Lancets] 28 gauge misc See Rx Instructions .Route Qty: 100 3RF Rx Instructions: test qam fasting hydralazine 25 mg tablet 25 mg PO BID Qty: 180 1RF Date of admission: 03/12/25 09:47 Primary Care Provider: Quinten Whitlock Admitting Provider: Julia Sanchez Attending physician on admission: Mirta Winn Condition: Serious
[2025-03-14] MEDS: HYDROcodone/acetaminophen (*CRX) 5-325 MG TABLET 1 TAB PO (12:53)
[2025-03-14 13:07] LABS: pH Pleural Fluid 7.435 (7.210-7.500)
[2025-03-14 13:17] LABS: Appearance Pleural Fluid Hazy (Clear); Color Pleural Fluid Yellow (Colorless); Lymphocytes Pleural Fluid 28 %; Neutrophils Pleural Fluid 37 % (0-25); Nucleated Cell Pleural Fluid 510 /uL (0-1000); Pleural fluid source Pleural fluid; RBC Pleural Fluid 2000 /uL (0-10000)
[2025-03-14 13:18] LABS: Macrophages Pleural Fluid 9 %; Mesothelial Cells Pleural Flui 14 %; Monocytes Pleural Fluid 6 %; Other Cells Pleural Fluid 6 %
[2025-03-14 14:00] VITALS: BP 139/73; PULSE 74; RESP 18; TEMP 36.1; O2SAT 94
--- NOTE | 2025-03-15 06:52 | P.CDI_ITS ---
CDI Query Clarification Request 1)Please clarify if CHF has been ruled in or ruled out. If ruled in please specify below Please specify type and acuity of heart failure if known. * Acute * Chronic * Acute on Chronic * Unknown * Systolic * Diastolic * Combined Systolic and Diastolic * Unknown 2) Please clarify if pneumonia has been ruled in or ruled out. * yes, ruled in * no, ruled out * unknown * other, please specify 3) If pneumonia is ruled in, please specify; The medical record reflects the diagnosis of: pneumonia ? *Yes- condition was present at the time of inpatient admission ? *No- condition was not present at the time of inpatient admission and it developed during the inpatient stay ? *W- provider is unable to clinically determine whether condition is present on admission The medical chart reflects the following: Narrative: 79-year-old female with a past medical history moderate to severe pulmonary hypertension, heart failure with preserved ejection fraction, chronic kidney disease stage 4 paroxysmal atrial fibrillation not on anticoagulation due to history of recurrent epistaxis who presented to the ER from [place] for evaluation of dyspnea on exertion. The patient had been hospitalized 03/08/2025 through 03/09/2025 due to right upper quadrant pain and found to have imaging suggestive of possible biliary stricture and or mass. She had received 1 L fluids while hospitalized. Her CA 19-9 was within normal limits. She was set up with outpatient follow-up at [facility] for endoscopic ultrasound. She reported that since shortly after returning home she has become progressively more short of breath which is worse with exertion. She has become progressively more tachypneic. When she arrived to the ER her respiratory rate was in the mid 30s to low 40s. She denied having any chest pain, cough, congestion, fevers or chills. She reports that she had not had much D because she was only home for 1 day and did not have much of an appetite. She had not had any actual vomiting but was still having some nausea. She reports that she has been having difficulty urinating. She states she can never used a pure wick catheters. At the time of my evaluation the patient stated that she really needed to urinate but could not pass urine. Bladder scan demonstrated almost just below 400 mL of retained urine. Carney catheter was placed and patient had immediate return of 300 mL of urine. Patient denied having any dysuria hematuria. She has been having less than normal bowel movements but again has not been eating. She reports that she usually has lower extremity edema or abdominal swelling when she has heart failure so she is surprised that she is being admitted for heart failure currently. In the ER will chest x-ray and CT demonstrated enlarging bilateral pleural effusions with CTA of chest abdomen and pelvis demonstrating bilateral large pleural effusion and pulmonary edema pattern. CT also demonstrated hepatomegaly with enhancing area left lobe highly suggestive of mass, distended gallbladder without stones with surrounding edema unchanged from prior exam sliding hiatal hernia, right kidney mass which may be concerning for renal cell carcinoma, foot fluid in the pelvis, slightly thickened sigmoid colon fat containing left inguinal hernia. There is also some scattered lymphadenopathy. 03/10 ER documented: Pulmonary edema Qualifiers: Chronicity: acute Qualified Code(s): J81.0 - Acute pulmonary edema Acute on chronic heart failure Qualifiers: Heart failure type: right-sided Qualified Code(s): I50.813 - Acute on chronic right heart failure H&P: (7) Acute on chronic heart failure: Qualifiers: Heart failure type: right-sided Qualified Code(s): I50.813 - Acute on chronic right heart failure 03/12 nephrology documented: (4) Acute exacerbation of CHF (congestive heart failure): Qualifiers: Heart failure type: unspecified Qualified Code(s): I50.9 - Heart failure, unspecified Code(s): I50.9 - Heart failure, unspecified Status: Acute Assessment and Plan: * acute on chronic * suspected based on presentation and evaluation to date * admission CXR and CT of chest with pulmonary edema [place] [address] [place] * last Echo noted (October 2024): * left ventricular systolic function is normal, estimated at 50-55% * right ventricular systolic function is normal * 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 2) Adjust BiPAP settings, 12/6 instead of 14/6; lower IPAP. Did not have significant pCO2 elevation on VBG; lower IPAP = more comfortable. 3) thoracentesis scheduled for tomorrow to analyze fluid; I added pH to other orders= cell count and diff, LDH, protein, glucose, cytology. She appears to have pleural effusions due to cardiac and renal dysfunction, with pulmonary disease a smaller element. 03/13 hospitalist documented: (7) Acute on chronic heart failure: Qualifiers: Heart failure type: right-sided Qualified Code(s): I50.813 - Acute on chronic right heart failure Code(s): I50.9 - Heart failure, unspecified Status: Acute Assessment and Plan: Continue Furosemide ECHO 10/2024: Left ventricular systolic function is normal, estimated at 50-55%. No evidence of diastolic dysfunction Order BNP 03/14 discharge summary: Patient was managed for Acute hypoxemic respiratory failure, Pulm edema and pleural effusion. Was initially on BiPAP, started on IV lasix, now on baseline oxygen 3 liters. Thoracentesis was performed today. CT also showed renal and liver lesions, however patient declined any workup as she is choosing to go on hospice. [facility] shosed normal EF, discharged on lasix 20mg bid and to complete 7 day treatmetn for possible penumonoa of Augmentin and Azithromycin. 03/10 BNP: 15,200 Lasix 40 mg IV BID <Zoya Frederick RN - Last Filed: 03/15/25 07:08> Clarified Diagnosis Clarified Diagnosis: * Acute on Chronic, diastolic CHF <Mirta Winn MD - Last Filed: 03/15/25 08:48>
[2025-03-17 21:24] LABS: Albumin Pleural Fluid 1.3 g/dL; Glucose Pleural Fluid 156 mg/dL; LDH Pleural Fluid 70 U/L; Total Protein Pleural Fluid <3.0 g/dL
== END 2025-03-14 15:35 | disposition hospice, inpatient (51) | DRG 291 ==
LOC: ANHED 19:20 → ANHIMU 03-11 00:47 → ANH3MEDSUR 03-13 14:16
PROVIDERS: General Practice; Internal Medicine Critical Care Medicine; Internal Medicine Nephrology; Admitting Provider Internal Medicine; Emergency Provider Student in an Organized Health Care Education/Training Program; PCP Family Medicine; Visit Provider Internal Medicine
DX: I13.0 Hypertensive heart and chronic kidney disease with heart failure and stage 1 through stage 4 chronic kidney disease, or unspecified chronic kidney disease (principal); I50.33 Acute on chronic diastolic (congestive) heart failure; J96.01 Acute respiratory failure with hypoxia; G72.0 Drug-induced myopathy; N18.4 Chronic kidney disease, stage 4 (severe); N17.9 Acute kidney failure, unspecified; J90 Pleural effusion, not elsewhere classified; I27.20 Pulmonary hypertension, unspecified; I25.10 Atherosclerotic heart disease of native coronary artery without angina pectoris; I48.0 Paroxysmal atrial fibrillation; I34.0 Nonrheumatic mitral (valve) insufficiency; J44.9 Chronic obstructive pulmonary disease, unspecified; D63.1 Anemia in chronic kidney disease; E11.22 Type 2 diabetes mellitus with diabetic chronic kidney disease; E83.51 Hypocalcemia; E53.8 Deficiency of other specified B group vitamins; E78.5 Hyperlipidemia, unspecified; K57.30 Diverticulosis of large intestine without perforation or abscess without bleeding; K44.9 Diaphragmatic hernia without obstruction or gangrene; N25.0 Renal osteodystrophy; K21.9 Gastro-esophageal reflux disease without esophagitis; Z20.822 Contact with and (suspected) exposure to COVID-19; Z51.5 Encounter for palliative care; R16.0 Hepatomegaly, not elsewhere classified; R59.1 Generalized enlarged lymph nodes; N28.89 Other specified disorders of kidney and ureter; M19.90 Unspecified osteoarthritis, unspecified site; F41.9 Anxiety disorder, unspecified; I25.2 Old myocardial infarction; Z99.81 Dependence on supplemental oxygen; Z79.4 Long term (current) use of insulin; Z87.891 Personal history of nicotine dependence
CPT/HCPCS: 32555; 36415; 36600; 71046; 71250; 71275; 74177; 76775; 80048; 80053; 80202; 81001; 82042; 82330; 82550; 82565; 82803; 82945; 82948; 83605; 83615; 83690; 83735; 83880; 83986; 84100; 84157; 84443; 84484; 85025; 85027; 85380; 85610; 85730; 86140; 87040; 87070; 87075; 87205; 87637; 87641; 88108; 88305; 89051; 93005; 94002; 94003; 96365; 96367; 96375; 96376; 99285; A9270; G0378; J0456; J0692; J0696; J1938; J2405; J3370; J7040; Q9967